=== PATIENT | female | born 1950 | race Caucasian/White ===

== ENCOUNTER 2025-01-12 10:34 | Inpatient (IN) ==
--- NOTE | 2025-01-12 11:06 | Emergency Department Note ---
Impression & Plan Neutropenia with fever, Sepsis, Infection due to human metapneumovirus (hMPV) ED Provider Note NAME: MAKEDA FATIMA AGE: 74 SEX: F : 1950 ARRIVES VIA: Walk-In INFORMANT: Patient ED PROVIDER(S): Moses Lazaro DO CHIEF COMPLAINT: Fever on chemo HPI: Patient is a 74-year-old female with a past medical history of hypertension, depression for a fever. She received chemo on Friday. She had a fever last night of 102. Son is present bedside and provides additional history and notes that she has had a worsening cough and congestion since Friday. Denies any headache or change in vision. No chest pain. No dysuria, urgency, or frequency. No new belly pain. Does have some nausea. ADDITIONAL HISTORY OBTAINED: Discussed with son who notes that patient had a port placed on Friday right chest. Chronic Medical/Social Conditions Affecting Care: Per HPI PAST MEDICAL HISTORY:See Below PAST SURGICAL HISTORY:See Below FAMILY HISTORY:See Below SOCIAL HISTORY:See Below HOME MEDICATIONS:See Below ALLERGIES:See Below VITALS:See Below PHYSICAL EXAMINATION: GENERAL: Sitting up in bed, alert, well appearing, well nourished, no distress, non-toxic EYE EXAM: normal conjunctiva. PERRL and EOM's grossly intact. OROPHARYNX: no exudate, no erythema, lips, buccal mucosa, and tongue normal and mucous membranes are moist NECK: supple, no nuchal rigidity, no adenopathy, non-tender CHEST: Port located on right chest. Clean and dry. LUNGS: Clear to auscultation. Normal chest wall mechanics HEART: no murmurs, S1 normal and S2 normal ABDOMEN: abdomen soft, non-tender, normo-active bowel sounds, no masses, no rebound or guarding. BACK: Back is symmetrical on inspection and there is no deformity, no midline tenderness, no CVA tenderness. SKIN: no rashes and no bruising UPPER EXTREMITIES: upper extremities are grossly normal. LOWER EXTREMITIES: No pitting edema. NEURO EXAM: Normal sensorium, cranial nerves II-XII grossly intact, normal speech, no gross weakness of arms, no gross weakness of legs. MEDICAL DECISION MAKING: Patient is a 74-year-old female referred in by their provider following being found to be febrile at home and noted to be neutropenic as she just received chemo this past Friday. Son is present at bedside and provides additional history that patient has had a cough and congestion which is worsened since Friday. IV was established and blood work was obtained. Labs show a leukopenia at 0.14 with a severe neutropenia less than 500 and a platelet count of 45. BMP with a hyponatremia at 128 and a hypokalemia at 3.3. Creatinine at 1.2. Low mag at 1.4. LFTs were unremarkable. Troponin was just barely positive. Pro-Maurilio elevated at 1.3. UA was contaminated but does not suggest infection with 0-5 whites. Viral panel was positive for human metapneumovirus. Patient was covered with broad-spectrum antibiotics which included 2 g of cefepime, IV fluids and IV vancomycin. Chest x-ray suggested possible pneumonia. This would fit clinically with her symptoms. Patient was updated bedside discussed with the hospitalist admitted for further workup of her neutropenic fever. Consults/Care Managements Discussions: Per [facility] Triage Nursing notes reviewed. Limited review of prior medical records performed Vital Signs: reviewed and remarkable for no significant abnormalities Differential diagnosis: Differential diagnosis includes etiologies such as sepsis, UTI, pneumonia, metabolic, electrolyte abnormalities, cardiac sources, intracerebral event, toxicologic, neurological, as well as others were entertained. ER treatment provided: See below Diagnostics interpreted by me include EKG and cardiac monitoring as listed below: -Cardiac Monitoring: An order was placed for continuous cardiac monitoring. The monitor shows a rate of 90 with sinus rhythm. -ECG: Sinus rhythm rate 75 Normal axis No PVCs QTc 410 -Laboratory studies:Interpreted by me as stated above in MDM and shown below. Imaging studies: Xrays: As interpreted by me:[Portable AP upright 1 view of the chest shows port located in right chest wall. CTs show: none Procedures:none Critical Care: I have personally spent 35 minutes of critical care time in the direct management of this patient. This includes bedside care, interpretation of diagnostic studies, and testing, discussion with consultants, patient, and family members, and other required patient management activities. This 35 minutes is in excess of all separately billable procedures. Past Med/Surg History Problem List (Updated 01/12/25 @ 14:05 by Moses Lazaro DO) Infection due to human metapneumovirus (hMPV) (Acute) Sepsis (Acute) Neutropenia with fever (Acute) Encounter for pre-operative examination Overactive bladder (Chronic) Cellulitis Encounter for pre-operative examination Encounter for pre-operative examination Breast cancer (Chronic) 1984 (Left Breast) HTN (hypertension) (Chronic) H/O total hysterectomy TAVO with BSO History of tonsillectomy and adenoidectomy H/O mastectomy "bilateral 07/03/[address] Briones with implants bilat" Neutropenia Medical History (Updated 01/12/25 @ 14:05 by Moses Lazaro DO) Nausea and vomiting after administration of anesthetic agent Osteoarthritis Bilateral lower extremity edema GERD (gastroesophageal reflux disease) Peripheral neuropathy r/t chemotherapy Migraine Hyperlipidemia Chronic obstructive pulmonary disease possible -- current testing Surgical History History of cataract surgery History of breast augmentation 2014 - implants removed d/t infection. Patient reports minimal implants. Hx of lumpectomy Left History of herniorrhaphy umbilical History of colonoscopy Family History Other Cancer Heart disease Hypertension Social History Smoking Status: Former smoker Tobacco Type: Cigarettes Cigarettes Per Day: 20 x 54 years; Second Hand Exposure: Yes; Do You Dip or Chew Tobacco: No; Hx Alcohol Use: Yes Alcohol type: beer Hx Substance Use: No Preferred Language: Albanian Communication Ability: Effective Geotechnician Required: No Beliefs That Will Affect Care: None Current Living Situation: Family Current Living Situation Comment: lives with son Feels Safe at Home: Yes Assistive Devices: Denture - Upper, Denture - Lower and Glasses Allergies Allergies Allergy/AdvReac Type Severity Reaction Status Date / Time lisinopril Allergy Severe ANAPHYLAXIS Verified 01/12/25 12:36 metoprolol Allergy Intermediate Anaphylaxis Verified 01/12/25 12:36 Home Meds Home Medications Medication Instructions Recorded Confirmed amlodipine 10 mg tablet 10 mg PO HS 07/09/19 01/12/25 atorvastatin 20 mg tablet 20 mg PO HS 07/09/19 01/12/25 cholecalciferol (vitamin D3) 25 1,000 unit PO HS 07/09/19 01/12/25 mcg (1,000 unit) capsule (Vitamin D3) aspirin 81 mg tablet 81 mg PO DAILY 01/12/25 01/12/25 hydrochlorothiazide 25 mg tablet 25 mg PO QAM 01/12/25 01/12/25 loratadine 10 mg tablet 10 mg PO DAILY 01/12/25 01/12/25 lorazepam 0.5 mg tablet 0.5 mg PO HS PRN Anxiety/Sleep 01/12/25 01/12/25 ondansetron HCl 8 mg tablet 8 mg PO Q8H PRN Nausea 01/12/25 01/12/25 prochlorperazine maleate 10 mg 10 mg PO Q6H PRN Nausea 01/12/25 01/12/25 tablet Results & Data (ED) Vital Signs Vital Signs - 24 hr 01/12/25 10:41 01/12/25 11:22 01/12/25 11:22 Temperature 37.1 C Temperature Source Oral Pulse Rate 91 H 76 Pulse Rate [Apical] Pulse Rhythm Regular Regular Pulse Rhythm [Apical] Pulse Strength Normal Pulse Strength [Apical] Respiratory Rate 20 16 Respiratory Effort / Characteristics Non-Labored Respiratory Depth Normal Respiratory Pattern Regular Blood Pressure 105/68 Blood Pressure [Right Arm] Blood Pressure Mean 80 Blood Pressure Mean [Right Arm] Blood Pressure Position Sitting Blood Pressure Position [Right Arm] Pulse Oximetry 91 88 L 91 Oxygen Delivery Method Room Air Room Air Nasal Cannula Oxygen Flow Rate 2 Sepsis Recent Fever Within 48 Hours Yes Sepsis New/Unexplained Change in Mental Status N/A Sepsis Action Taken by Nursing No Action Required 01/12/25 11:23 01/12/25 11:43 01/12/25 12:16 Temperature Temperature Source Pulse Rate 71 Pulse Rate [Apical] 80 64 Pulse Rhythm Pulse Rhythm [Apical] Regular Regular Pulse Strength Pulse Strength [Apical] Normal Normal Respiratory Rate 16 17 Respiratory Effort / Characteristics Non-Labored Spontaneous Non-Labored Spontaneous Respiratory Depth Normal Normal Respiratory Pattern Regular Regular Blood Pressure Blood Pressure [Right Arm] 88/58 L 119/60 Blood Pressure Mean Blood Pressure Mean [Right Arm] 68 79 Blood Pressure Position Blood Pressure Position [Right Arm] Lying Lying Pulse Oximetry 91 95 Oxygen Delivery Method Nasal Cannula Nasal Cannula Oxygen Flow Rate 2 2 Sepsis Recent Fever Within 48 Hours Sepsis New/Unexplained Change in Mental Status Sepsis Action Taken by Nursing 01/12/25 13:09 Temperature Temperature Source Pulse Rate Pulse Rate [Apical] 62 Pulse Rhythm Pulse Rhythm [Apical] Regular Pulse Strength Pulse Strength [Apical] Normal Respiratory Rate 19 Respiratory Effort / Characteristics Non-Labored Spontaneous Respiratory Depth Normal Respiratory Pattern Regular Blood Pressure Blood Pressure [Right Arm] 148/80 H Blood Pressure Mean Blood Pressure Mean [Right Arm] 102 Blood Pressure Position Blood Pressure Position [Right Arm] Lying Pulse Oximetry 94 Oxygen Delivery Method Nasal Cannula Oxygen Flow Rate 2 Sepsis Recent Fever Within 48 Hours Sepsis New/Unexplained Change in Mental Status Sepsis Action Taken by Nursing Laboratory Data 01/12/25 11:00 01/12/25 11:00 Lab Results 01/12/25 01/12/25 01/12/25 Range/Units 11:00 11:20 12:38 WBC 0.14 L* (4.8-10.8) K/ul RBC 3.88 L (4.20-5.40) M/uL Hgb 10.2 L (12.0-16.0) g/dl Hct 29.5 L (37.0-47.0) % MCV 76.0 L (80.0-100.0) fL MCH 26.3 (25.0-34.0) pg MCHC 34.6 (32.0-36.0) g/dL RDW Std Deviation 39.3 (36.4-46.3) fL RDW Coeff of All 14.2 (11.5-14.5) % Plt Count 45 L (130-400) K/uL MPV 10.1 (9.4-12.4) fL Neut # (Auto) < 0.50 L* (1.40-6.50) K/uL Platelet Estimate Decreased L (Normal) PT 12.6 H (9.0-12.0) Seconds INR 1.2 H (0.9-1.1) Sodium 128 L (136-145) mmol/L Potassium 3.3 L (3.5-5.1) mmol/L Chloride 93 L (98-107) mmol/L Carbon Dioxide 25 (21-32) mmol/L Anion Gap 10 (3-11) BUN 23 (6-23) mg/dl Creatinine 1.21 H (0.6-1.2) mg/dl Est Cr Clr Drug Dosing 41.8 ml/min eGFR 47.32 BUN/Creatinine Ratio 19.0 (10-20) Glucose 154 H (70-99(Fasting)) mg/dl Lactate 1.3 (0.4-2.0) mmol/L Calcium 8.9 (8.6-10.3) mg/dl Magnesium 1.4 L (1.7-2.4) mg/dl Total Bilirubin 1.2 H (0.2-1.0) mg/dl Direct Bilirubin 0.4 H (0-0.2) mg/dl AST 11 L (13-39) U/L ALT 7 (7-52) U/L Alkaline Phosphatase 75 (34-104) U/L Troponin I High Sens 14.8 H (0-14) pg/ml Total Protein 7.2 (6.0-8.3) gm/dl Albumin 3.7 (3.4-5.0) gm/dl Procalcitonin 1.38 H (0-0.5) ng/ml Urine Color Dark Yellow Urine Appearance Cloudy A (Clear) Urine pH 5.5 (4.5-7.5) Ur Specific [place] 1.027 (1.000-1.030) Urine Protein 2+ H (Negative) Urine Glucose (UA) Negative (Negative) Urine Ketones Trace H (Negative) Urine Blood 1+ H (Negative) Urine Nitrite Negative (Negative) Urine Bilirubin 1+ H (Negative) Urine Urobilinogen Negative (Negative) Ur Leukocyte Esterase Trace H (Negative) Urine WBC (Auto) 0-5 (0-5) /hpf Urine RBC (Auto) 3-5 H (0-2) /hpf U Hyaline Cast (Auto) 11-20 H (0-2) /lpf U Epithel Cells (Auto) 11-20 H (0-2) /hpf Urine Bacteria (Auto) None Seen (None Seen) Hyaline Casts Present A (None Presnt) /lpf Granular Casts Present A (None Prsent) /lpf Urine Mucus Present A (None Prsent) Adenovirus (PCR) Not Detected (NotDetected) B. pertussis DNA (PCR) Not Detected (NotDetected) B.parapertussis DNA PCR Not Detected (NotDetected) C. pneumoniae DNA (PCR) Not Detected (NotDetected) Coronavirus OC43 (PCR) Not Detected (NotDetected) Coronavirus HKU1 (PCR) Not Detected (NotDetected) Coronavirus 229E (PCR) Not Detected (NotDetected) SARS-CoV-2 (PCR) Not Detected (NotDetected) Coronavirus NL63 (PCR) Not Detected (NotDetected) Human Metapneumovir PCR DETECTED A (NotDetected) Influenza Type A (PCR) Not Detected (NotDetected) Influenza Type B (PCR) Not Detected (NotDetected) M. pneumoniae (PCR) Not Detected (NotDetected) Parainfluenza 1 (PCR) Not Detected (NotDetected) Parainfluenza 2 (PCR) Not Detected (NotDetected) Parainfluenza 3 (PCR) Not Detected (NotDetected) Parainfluenza 4 (PCR) Not Detected (NotDetected) RSV (PCR) Not Detected (NotDetected) Entero/Rhino (PCR) Not Detected (NotDetected) Administered Medications Vancomycin HCl 1,500 mg/ (Sodium Chloride) 530 mls @ 200 mls/hr IV NOW ONE Stop: 01/12/25 14:41 Last Admin: 01/12/25 12:33 Dose: 200 mls/hr Documented By: GEORGE Potassium Chloride (K Jamaal / Wtr) 10 meq in 100 mls @ 100 mls/hr IV Q1H ABA Stop: 01/12/25 16:59 Last Admin: 01/12/25 13:20 Dose: 100 mls/hr Documented By: GEORGE Magnesium Sulfate/Dextrose (Magnesium Sulfate / D5w) 1 gm in 100 mls @ 50 mls/hr IV Q2H [facility] Stop: 01/12/25 16:59 Last Admin: 01/12/25 13:18 Dose: 50 mls/hr Documented By: GEORGE Discontinued Medications Cefepime HCl (Maxipime 2000mg) 2,000 mg in 20 mls @ 5 mls/min IV NOW STA; Protocol Stop: 01/12/25 11:07 Last Admin: 01/12/25 11:42 Dose: 5 mls/min Documented By: LION Sodium Chloride (Nss) 1,000 mls @ 999 mls/hr IV .Q1H1M ONE Stop: 01/12/25 12:04 Last Infusion: 01/12/25 12:37 Dose: Infused Documented By: Admin: 01/12/25 11:32 Dose: 999 mls/hr Documented By: GEORGE Sodium Chloride (Nss) 1,000 mls @ 999 mls/hr IV .Q1H1M ONE Stop: 01/12/25 12:26 Last Admin: 04/16/25 11:56 Dose: Not Given Documented By: GEORGE Ondansetron HCl (Ondansetron Inj 2 Mg/Ml 2 Ml Vial) 4 mg IV NOW STA Stop: 01/12/25 12:58 Last Admin: 01/12/25 13:07 Dose: 4 mg Documented By: GEORGE Imaging Data Radiologist's Impression: Chest X-Ray 01/12/25 10:49 XR chest 1V portable CLINICAL HISTORY: Sepsis COMPARISON STUDY: 07/20/2024 FINDINGS: Right chest port tip is at the cavoatrial junction. There are a few nodular densities at the right midlung, increased. No other consolidation or pleural effusion. No pneumothorax. IMPRESSION: Increased nodular densities at the right mid lung. Differential diagnosis includes pneumonia and pulmonary nodule/malignancy. ACT 112: Positive. There are findings on this exam that require communication between the performing entity and the patient following Patient Test Result Information Act ([place] Act 112) guidelines. Electronically signed by: Juan Russell M.D. 01/12/2025 11:09 AM Discharge Plan Visit Data Chief Complaint: Abnormal Labs/Diagnostic Testing Stated Complaint: CANCER PATIENT, LOW WHITE BLOOD COUNT, VOMITING ED Provider: Moses Lazaro Discharge Problem: Neutropenia with fever, Sepsis, Infection due to human metapneumovirus (hMPV) Forms Stand Alone Forms: My [employer] Prescriptions Prescriptions: No Action atorvastatin 20 mg tablet 20 mg PO HS amlodipine 10 mg tablet 10 mg PO HS cholecalciferol (vitamin D3) [Vitamin D3] 1,000 unit Capsule 1,000 unit PO HS Rx Instructions: Unable to verify OTC meds at this date/time. ondansetron HCl 8 mg tablet 8 mg PO Q8H PRN (Reason: Nausea) prochlorperazine maleate 10 mg tablet 10 mg PO Q6H PRN (Reason: Nausea) lorazepam 0.5 mg tablet 0.5 mg PO HS PRN (Reason: Anxiety/Sleep) hydrochlorothiazide 25 mg tablet 25 mg PO QAM Rx Instructions: Last filled 09/27/25 x90 day supply loratadine 10 mg tablet 10 mg PO DAILY Rx Instructions: x 5 days after pegfilgastrim injection aspirin 81 mg Tablet 81 mg PO DAILY Referrals Referrals: Marge Leal MD [Primary Care Provider] - Discharge Problem: Sepsis Qualifiers: Sepsis type: sepsis due to unspecified organism Sepsis acute organ dysfunction status: unspecified Qualified Code(s): A41.9 - Sepsis, unspecified organism
--- NOTE | 2025-01-12 11:11 | XRay Report ---
XR chest 1V portable CLINICAL HISTORY: Sepsis COMPARISON STUDY: 07/20/2024 FINDINGS: Right chest port tip is at the cavoatrial junction. There are a few nodular densities at th e right midlung, increased. No other consolidation or pleural effusion. No pneumothorax. IMPRESSION: Increased nodular densities at the right mid lung. Differential diagnosis includes pneum onia and pulmonary nodule/malignancy. ACT 112: Positive. There are findings on this exam that require communication between the performing entity and the patient following Patient Test Result Information Act ([place] Act 112) guidelines. Electronically signed by: Juan Russell M.D. 01/12/2025 11:09 AM
[2025-01-12 11:28] LABS: INR 1.2 (0.9-1.1); Prothrombin Time 12.6 Seconds (9.0-12.0)
[2025-01-12] MEDS: SODIUM CHLORIDE 0.9% 1,000 ML IV ONE ×2 (11:32→11:56)
[2025-01-12 11:41] LABS: Albumin Level 3.7 gm/dl (3.4-5.0); Bilirubin Direct 0.4 mg/dl (0-0.2); Bilirubin,Total 1.2 mg/dl (0.2-1.0); Calcium 8.9 mg/dl (8.6-10.3); Magnesium 1.4 mg/dl (1.7-2.4); Potassium 3.3 mmol/L (3.5-5.1)
[2025-01-12] MEDS: CEFEPIME 2000MG 2,000 MG/20 ML SYR IV STA (11:42)
[2025-01-12 11:45] LABS: Troponin I High Sensitivity 14.8 pg/ml (0-14)
[2025-01-12 11:47] LABS: Creatinine Clr Calc Pharmacy 41.8 ml/min; Total Protein 7.2 gm/dl (6.0-8.3)
[2025-01-12 11:54] LABS: Hematocrit (blood only) 29.5 % (37.0-47.0); Hemoglobin 10.2 g/dl (12.0-16.0); Mean Corpuscular Hemoglobin 26.3 pg (25.0-34.0); Mean Corpuscular Hgb Conc 34.6 g/dL (32.0-36.0); Mean Platelet Volume 10.1 fL (9.4-12.4); Platelet Count 45 K/uL (130-400); RDW Coefficient of Variation 14.2 % (11.5-14.5); RDW Standard Deviation 39.3 fL (36.4-46.3); Red Blood Count 3.88 M/uL (4.20-5.40); White Blood Count 0.14 K/ul (4.8-10.8)
[2025-01-12 11:55] LABS: Platelet Estimate Decreased (Normal)
[2025-01-12] MEDS ORDERED: VANCOMYCIN CONSULT ACTIVE PRN (12:03)
[2025-01-12] MEDS: VANCOMYCIN HCL 1,500 MG in SODIUM CHLORIDE 0.9% 500 ML IV ONE (12:33)
[2025-01-12 12:36] LABS: Adenovirus PCR Not Detected (NotDetected); Bordetella parapertussis PCR Not Detected (NotDetected); Bordetella pertussis PCR Not Detected (NotDetected); Chlamydia pneumoniae PCR Not Detected (NotDetected); Coronavirus 229E PCR Not Detected (NotDetected); Coronavirus CoV-2 (COVID19)PCR Not Detected (NotDetected); Coronavirus HKU1 PCR Not Detected (NotDetected); Coronavirus NL63 PCR Not Detected (NotDetected); Coronavirus OC43PCR Not Detected (NotDetected); Human Metapneumovirus PCR DETECTED (NotDetected); Influenza A PCR Not Detected (NotDetected); Influenza B PCR Not Detected (NotDetected); Mycoplasma pneumoniae PCR Not Detected (NotDetected); Parainfluenza Virus 1 PCR Not Detected (NotDetected); Parainfluenza Virus 2 PCR Not Detected (NotDetected); Parainfluenza Virus 3 PCR Not Detected (NotDetected); Parainfluenza Virus 4 PCR Not Detected (NotDetected); Respiratory Syncytial VirusPCR Not Detected (NotDetected); Rhinovirus/Enterovirus PCR Not Detected (NotDetected)
[2025-01-12 12:51] LABS: Neutrophils # (auto) < 0.50 K/uL (1.40-6.50)
[2025-01-12 13:07] LABS: Appearance Urine Cloudy (Clear); Bacteria Urine Automated None Seen (None Seen); Bilirubin Urine 1+ (Negative); Blood Urine 1+ (Negative); Color Urine Dark Yellow; Glucose Urine UA Negative (Negative); Granular Casts Urine Present /lpf (None Prsent); Hyaline Casts Urine Present /lpf (None Presnt); Ketones Urine Trace (Negative); Leukocyte Esterase Urine Trace (Negative); Mucus Urine Present (None Prsent); Nitrite Urine Negative (Negative); Protein Urine 2+ (Negative); Specific Gravity Urine 1.027 (1.000-1.030); Urobilinogen Urine Negative (Negative); WBC Urine Automated 0-5 /hpf (0-5); pH Urine 5.5 (4.5-7.5)
[2025-01-12] MEDS: ONDANSETRON INJ 2 MG/ML 2 ML VIAL IV STA (13:07)
[2025-01-12] MEDS: MAGNESIUM SULFATE / D5W 1 GM/100 ML BAG IV SCH (13:18)
[2025-01-12] MEDS: POTASSIUM CHLORIDE / WTR 10 MEQ/100 ML PLCT IV SCH (13:20)
--- NOTE | 2025-01-12 14:20 | History & Physical Report ---
Date of Service January 12, 2025 Assessment & Plan (1) Neutropenic fever: (2) Pneumonia: (3) Pancytopenia: (4) Hypoxia: (5) Infection due to human metapneumovirus (hMPV): (6) Large cell neuroendocrine carcinoma: Plan: Patient presenting by referral of outpatient oncologist office for evaluation of neutropenic fever. 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 Patient received her first doses of chemo (etoposide plus carboplatin combination) on 01/03, 01/04, and 01/05. Patient received pegfilgrastim on 01/06. Since receiving chemo, patient reports generalized weakness, poor appetite, nausea, vomiting. Over the past couple of days, she developed a worsening cough and fever of 102 this a.m. In the ED, patient was hypoxic on room air at 88%, currently requiring 2 L of oxygen via nasal cannula. She is afebrile and hemodynamically stable. Labs showed WBC 0.14K, Hgb 10.2, platelets 45K, Na+ 128, K+ 3.3, creatinine 1.2, Mg +1.4, lactate 1.3. RVP positive for human metapneumovirus. CXR is suggestive of a right midlung pneumonia. Patient was given IV cefepime, IV Vanco, IVF. Continue Vanco and cefepime, will add doxycycline for atypical coverage CT chest Pulmonary toilet with nebs, Mucinex, incentive spirometer, flutter valve Blood and sputum cultures Follow CBC Patient follows with Dr. 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 Terrell. I spent a total of 75 minutes coordinating, documenting, and providing care for this patient excluding time spent in the performance of separately billed services. This included personally reviewing all current laboratories and imaging studies, medication reconciliation, outpatient chart review, and discussion with specialists. 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 Patient received her first doses of chemo on 01/03, 01/04, and 01/05. Patient received pegfilgrastim on 01/06. She reports that since receiving chemo she has been feeling generally weak, nauseous, poor appetite, and vomiting. Denies abdominal pain or diarrhea. No hematemesis or coffee-ground emesis. Patient reports a chronic cough due to her smoking history however cough has been worsening over the past couple of days. Patient started to develop a low-grade fever over the past couple of days as well and this morning fever was 102. Cough has been productive and patient reports she feels short of breath with minimal exertion. No chest pain or palpitations. She denies lightheadedness, dizziness, diaphoresis, syncopal events. No urinary symptoms. Patient was seen at her oncologist office today and was referred to the ED for further evaluation. In the ED, patient was hypoxic on room air at 88%, currently requiring 2 L of oxygen via nasal cannula. She is afebrile and hemodynamically stable. Labs showed WBC 0.14K, Hgb 10.2, platelets 45K, Na+ 128, K+ 3.3, creatinine 1.2, Mg +1.4. RVP positive for human metapneumovirus. CXR is suggestive of a right midlung pneumonia. Patient was given IV cefepime, IV Vanco, IVF. Allergies Allergy/AdvReac Type Severity Reaction Status Date / Time lisinopril Allergy Severe ANAPHYLAXIS Verified 01/12/25 12:36 metoprolol Allergy Intermediate Anaphylaxis Verified 01/12/25 12:36 Home Medications Medication Instructions Recorded Confirmed Type amlodipine 10 mg tablet 10 mg PO HS 07/09/19 01/12/25 History atorvastatin 20 mg tablet 20 mg PO HS 07/09/19 01/12/25 History cholecalciferol (vitamin D3) 25 1,000 unit PO HS 07/09/19 01/12/25 History mcg (1,000 unit) capsule (Vitamin D3) aspirin 81 mg tablet 81 mg PO DAILY 01/12/25 01/12/25 History hydrochlorothiazide 25 mg tablet 25 mg PO QAM 01/12/25 01/12/25 History loratadine 10 mg tablet 10 mg PO DAILY 01/12/25 01/12/25 History lorazepam 0.5 mg tablet 0.5 mg PO HS PRN Anxiety/Sleep 01/12/25 01/12/25 History ondansetron HCl 8 mg tablet 8 mg PO Q8H PRN Nausea 01/12/25 01/12/25 History prochlorperazine maleate 10 mg 10 mg PO Q6H PRN Nausea 01/12/25 01/12/25 History tablet Past Med/Surg History Problem List (Updated 01/12/25 @ 14:13 by MONO Jimenez) Infection due to human metapneumovirus (hMPV) (Acute) Sepsis (Acute) Neutropenia with fever (Acute) Hypomagnesemia Hypokalemia Hyponatremia Hypoxia Pneumonia Pancytopenia Neutropenic fever HTN (hypertension) (Chronic) H/O total hysterectomy TAVO with BSO History of tonsillectomy and adenoidectomy H/O mastectomy "bilateral 07/03/[address] 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 She was first diagnosed in 1984 where she had a partial mastectomy and radiation therapy. She had a mammogram in 2014 showing a possible recurrence. She then had bilateral mastectomies with reconstruction. Pathology showing invasive carcinoma grade 3, ER/HI negative and HER2 Alexander positive. She was treated with the 1st cycles of TCH and 1 year of Herceptin which she completed on 07/23/2016. Nausea and vomiting after administration of anesthetic agent Osteoarthritis GERD (gastroesophageal reflux disease) Peripheral neuropathy r/t chemotherapy Migraine Hyperlipidemia Chronic obstructive pulmonary disease possible -- current testing Surgical History (Updated 01/12/25 @ 14:13 by MONO Jimenez) History of lobectomy of lung SAURAV for neuroendocrine tumor History of cataract surgery History of breast augmentation 2014 - implants removed d/t infection. Patient reports minimal implants. Hx of lumpectomy Left History of herniorrhaphy umbilical History of colonoscopy Family History Other Cancer Heart disease Hypertension Social History Smoking Status: Former smoker Tobacco Type: Cigarettes Cigarettes Per Day: 20 x 54 years; Second Hand Exposure: Yes; Do You Dip or Chew Tobacco: No; Hx Alcohol Use: No Hx Substance Use: No Preferred Language: Pakistani Communication Ability: Effective [employer] Professional Required: No Beliefs That Will Affect Care: None Current Living Situation: Family Current Living Situation Comment: lives with son Feels Safe at Home: Yes Assistive Devices: Denture - Upper, Denture - Lower and Glasses Review of Systems Review of Systems: ROS per HPI, all other systems reviewed and negative Physical Exam Constitutional: well developed, well nourished and + ill appearing; no acute distress Eyes: PERRL, conjunctivae normal, anicteric sclerae ENMT: external ear and nose normal, oropharynx normal Respiratory: normal respiratory effort; no respiratory distress Auscultation: + diminished lung sounds Dyspneic with minimal exertion Cardiovascular: Rate/Rhythm: regular rate and regular rhythm Vessels: normal peripheral pulses Extremities: no edema Gastrointestinal (Abdomen): normal bowel sounds, soft, nontender, no hepatosplenomegaly Musculoskeletal: no cyanosis or clubbing, extremities motor strength 5/5 Skin: no rashes, warm and dry Neurologic: PERRL, EOMI, accommodation nl, no face palsy, no dysarthria Psychiatric: A+Ox3, euthymic affect Results & Data Results & Data Vital Signs (Past 12 Hours) Vital Signs Temp Pulse Pulse Resp BP BP Pulse Ox 01/12/25 13:09 62 19 148/80 H 94 01/12/25 12:16 64 17 119/60 95 01/12/25 11:43 71 01/12/25 11:23 80 16 88/58 L 91 01/12/25 11:22 91 01/12/25 11:22 76 16 88 L 01/12/25 10:41 37.1 C 91 H 20 105/68 91 O2 Del Method O2 Flow Rate 01/12/25 13:09 Nasal Cannula 2 01/12/25 12:16 Nasal Cannula 2 01/12/25 11:43 01/12/25 11:23 Nasal Cannula 2 01/12/25 11:22 Nasal Cannula 2 01/12/25 11:22 Room Air 01/12/25 10:41 Room Air Laboratory Results Short CBC 01/12/25 Range/Units 11:00 WBC 0.14 L* (4.8-10.8) K/ul Hgb 10.2 L (12.0-16.0) g/dl Hct 29.5 L (37.0-47.0) % Plt Count 45 L (130-400) K/uL BMP 01/12/25 11:00 Sodium 128 L Potassium 3.3 L Chloride 93 L Carbon Dioxide 25 BUN 23 Creatinine 1.21 H Glucose 154 H Calcium 8.9 Liver Function 01/12/25 Range/Units 11:00 Total Bilirubin 1.2 H (0.2-1.0) mg/dl Direct Bilirubin 0.4 H (0-0.2) mg/dl AST 11 L (13-39) U/L ALT 7 (7-52) U/L Alkaline Phosphatase 75 (34-104) U/L Albumin 3.7 (3.4-5.0) gm/dl Urine 01/12/25 Range/Units 12:38 Urine Color Dark Yellow Urine Appearance Cloudy A (Clear) Urine pH 5.5 (4.5-7.5) Ur Specific Chamberlain 1.027 (1.000-1.030) Urine Protein 2+ H (Negative) Urine Glucose (UA) Negative (Negative) Diagnostic Findings Chest X-Ray 01/12/25 10:49 XR chest 1V portable CLINICAL HISTORY: Sepsis COMPARISON STUDY: 07/20/2024 FINDINGS: Right chest port tip is at the cavoatrial junction. There are a few nodular densities at the right midlung, increased. No other consolidation or pleural effusion. No pneumothorax. IMPRESSION: Increased nodular densities at the right mid lung. Differential diagnosis includes pneumonia and pulmonary nodule/malignancy. ACT 112: Positive. There are findings on this exam that require communication between the performing entity and the patient following Patient Test Result Information Act ([place] Act 112) guidelines. Electronically signed by: Juan Russell M.D. 01/12/2025 11:09 AM Code Status & VTE Plan VTE Prophylaxis Plan VTE Prophylaxis will be ordered: Yes Supervising Physician Co-Signing Physician Notes Patient seen and examined independently. Discussed with above provider. Patient was seen in the oncology office and was sent to the ED for evaluation of febrile neutropenia. She was found to have fever of 102F in the office. Respiratory viral panel positive for human metapneumovirus; her son recently recovered from the same. She also recently had Port-A-Cath placed; dressing is still in place. She had received pegfilgrastim on 01/06. Chest x-ray showed increased nodular densities in right midlung. Pro-Maurilio is elevated. Plan to treat with empiric cefepime and vancomycin along with doxycycline. Follow-up on blood culture result. Plan to obtain CT chest without contrast to better evaluate the chest x-ray findings. I have reviewed the advanced practitioner's documentation, and I agree with, and take responsibility for the plan of care I spent a total of 30 minutes coordinating, documenting, and providing care for this patient excluding time spent in the performance of separately billed services. All of the aforementioned completed while collaborating with the assigned advanced practitioner for a full treatment plan
[2025-01-12] MEDS ORDERED: CEFEPIME 2000MG 2,000 MG/20 ML SYR IV SCH (14:32)
--- NOTE | 2025-01-12 14:56 | Pharmacy Report ---
Pharmacy PK ABX Note - Date of Service January 12, 2025 - Assessment and Plan Assessment 74 year old F receiving vancomycin, doxycycline, and cefepime for treatment of CAP. Patient with remote history of breast cancer s/p bilateral mastectomies, radiation, and chemo. 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 She now presents with low-grade fever, worsening cough, weakness, nausea, and vomiting. * Pertinent microbiologic data includes: + for hMPV * Blood cultures x 2 and urine cultures all from 01/12 are pending * CXR suggestive of right midlung PNA. Day # 1 of antimicrobial therapy. Plan Vancomycin * Loading dose: 1500 mg IV x 1 * Maintenance dose: 1250 mg IV every 24 hours * Regimen is predicted to achieve target AUC/LAXMI of 400-600 mg/L.hr * Random level will be ordered in the next 72 hours if continued. Pharmacy will continue to follow and will adjust dose/frequency as necessary. Thank you. Pharmacy has transitioned to AUC monitoring for vancomycin. AUC/LAXMI is the preferred PK/PD target and is associated with decreased risk of nephrotoxicity compared to traditional trough targets.
--- NOTE | 2025-01-12 15:42 | CT Scan Report ---
CT chest diagnostic wo con CT DOSE: 328.35 mGy.cm CLINICAL HISTORY: neutropenic fever, pneumonia. TECHNIQUE: Multiaxial CT images of the chest were performed without contrast. Sagittal and coronal r econstructions were done. A dose lowering technique was utilized adhering to the principles of ALARA. COMPARISON STUDY: Portable radiograph dated 01/12/2025 FINDINGS: There are patchy airspace opacities in the right upper lobe and the right lower lobe. In ad dition, there is partial atelectasis and scarring in the medial segment of the right middle lobe and there is scarring in the anterior aspect of the left upper lobe. There is a sharply marginated 7 mm solid nodule identified in the right lower lobe on axial image 38 of series 3. There is no pleural effusion. There is no pneumothorax. There are prominent precarinal, subcarinal, a nd right hilar lymph nodes that are likely to be reactive. There is a 2.6 cm fluid attenuating mass l deana just anterior to the esophagus in the middle mediastinum on axial image 119 of series 4 The upper airway is unremarkable. There is no aortic aneurysm. The upper abdominal images demonstrate a small hiatal hernia IMPRESSION: Patchy airspace opacities in the right upper lobe and right lower lobe consistent with in fectious or inflammatory infiltrates. Right hilar and mediastinal adenopathy likely to be reactive bu t recommend follow-up. 7 mm solid nodule in the right lower lobe having different characteristics than the inflammatory infi ltrates. Recommend follow-up. 2.5 cm middle mediastinal mass just anterior to the esophagus with low attenuation most likely an ent herber cyst or benign esophageal wall lesion. I would advise repeat CT follow-up in the near future with contrast enhancement to better evaluate th e adenopathy, the characteristics of the right lower lobe nodule, and the characteristics of the medi astinal mass. Following that, would recommend a follow-up chest CT in 3-6 months to reevaluate the ri ght lung nodule and to reassess the adenopathy and the mediastinal mass. ACT 112: Negative or not required by law. Electronically signed by: Sharmin Wilson M.D. 01/12/2025 3:40 PM
[2025-01-12] MEDS: DOXYCYCLINE HYCLATE 100 MG in DEXTROSE 5% MINI-B 100 ML IV SCH (16:20)
[2025-01-12 17:37] LABS: BUN Creatinine Ratio 21.7 (10-20); Blood Urea Nitrogen 23 mg/dl (6-23); Calcium 8.2 mg/dl (8.6-10.3); Carbon Dioxide 28 mmol/L (21-32); Chloride 96 mmol/L (98-107); Creatinine Clr Calc Pharmacy 47.7 ml/min; Glucose 114 mg/dl (70-99(Fasting))
--- OUTSIDE RECORDS SUMMARY | 2025-01-12 17:57 | External Medical Summary | Summary of Care ---
Author Name Unknown Organization [facility] Address [address] [facility] [place] [address] Phone [phone] Care Team Providers Care Rink Rat Name Role Phone Marge Leal MD Primary Care Provide r Reason for Visit * Reason Onset Date Comments Follow Up 01/07/2025 Carbo/Etop Encounter Details Date Type Department Care Team (Late st Contact Info) Description 01/07/2025 Telephone Hematology/Oncology [facility] [place] [address] [facility] [place] [phone] Logan Mancia MD [address] [place] [address] Follow Up (Carbo/Etop) Allergies Active Allergy Reactions Criticality Noted Date Comments Varenicline Neuro complications (Please comment) Low 08/23/2019 Vivid nightmares Lisinopril Edema face/lips/tongue High 03/29/2014 Metoprolol Tartrate Edema face/lips/tongue,Other (Please comment) High 05/07/2019 Facial swelling, airway closing up documented as of this encounter (statuses as of 01/11/2025) Medications aspirin 81 MG chewable tabletIndicatio ns:Asymptomatic stenosis of left carotid artery Take 1 Tablet by mouth in the morning. with food.. 100 Tab 5 9 Active Vitamin D3 10 MCG (400 UNIT) Oral Tablet (Cholecalcifero l) Take 1 Tablet by mouth in the morning. Active hydroCHLOROthia zide 25 MG Oral Tablet (Hydrodiuril)In dications:HTN, goal below 140/90 TAKE 1 TABLET BY MOUTH EVERY DAY IN THE MORNING 90 Tablet 1 4 Active Atorvastatin Calcium 20 MG Oral Tablet (Lipitor)Indica tions:Asymptoma tic stenosis of left carotid artery TAKE 1 TABLET BY MOUTH EVERY DAY IN THE MORNING 90 Tablet 1 4 Active DULoxetine HCl 20 MG Oral Capsule Delayed Release Particles (Cymbalta)Indic ations:Anxiety TAKE 1 CAPSULE BY MOUTH IN THE MORNING. DO NOT CUT, CRUSH OR CHEW. 90 Capsule 1 4 Active Additional Information Patient taking differently:20 mg OralHS, Do not cut, crush or chew, Reported on 12/06/2024 Acetaminophen 500 MG Oral Tablet (Tylenol Extra Strength) Take 2 Tablets by mouth every 6 hours as needed. Active Tylenol PM Extra Strength 500-25 MG Oral Tablet (diphenhydrAMIN E-APAP (sleep)) Take 2 Tablets by mouth at bedtime as needed for Sleep. Active oxyCODONE HCl 5 MG Oral Tablet (Oxy IR) Take 1 Tablet by mouth every 6 hours as needed for Pain, Severe or Pain, Moderate (ongoing therapy). 10 Tablet 5 Active amLODIPine Besylate 10 MG Oral Tablet (Norvasc)Indica tions:HTN, goal below 140/90 TAKE 1 TABLET BY MOUTH EVERY DAY IN THE MORNING 90 Tablet 1 5 Active Additional Information Patient taking differently: HS, Reported on 01/06/2025 Ondansetron HCl 8 MG Oral Tablet (Zofran)Indicat ions:Malignant neoplasm of lung, unspecified laterality, unspecified part of lung (HCC) Take 1 Tablet by mouth every 8 hours as needed for Nausea. 30 Tablet 1 5 Active Prochlorperazin e Maleate 10 MG Oral Tablet (Compazine)Mariella cations:Maligna nt neoplasm of lung, unspecified laterality, unspecified part of lung (HCC) Take 1 Tablet by mouth every 6 hours as needed for Nausea. 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 30 Tablet 5 Active documented as of this encounter (statuses as of 01/11/2025) Active Problems Problem Noted Date Diagnosed Date Dehydration 01/05/2025 Chemotherapy induced nausea and vomiting 025 Prevention of chemotherapy-induced neutropenia 0 01/03/2025 Iron deficiency anemia 05/19/2020 Oxygen desaturation during sleep 02/17/2020 COPD, mild 01/25/2020 Decreased diffusion capacity of lung 01/25/2020 Mild tricuspid regurgitation 04/15/2019 Overview (04/15/2019): Echo 02/2019 Primary malignant neoplasm of left upper lobe of lung 03/15/2019 Cancer Staging:Clinical stage from 11/17/2024:Stage IA2(cT1b, cN0, cM0) - Signed by Lee Gomez MD on 11/17/2024 Pathologic stage from 11/24/2024:Stage IB(pT2a, pN0, cM0) - Signed by Lee Gomez MD on 11/24/2024 Overview (03/15/2019): 6 x 7 mm nodule 03/15/19. Repeat in 6 months. 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 Anxiety 07/27/2018 Osteoporosis 10/25/2016 Encounter for antineoplastic chemotherapy 2014 History of breast cancer 07/26/2015 HTN, goal below 140/90 01/10/2012 Tobacco use disorder 03/14/2006 Chronic rhinitis 03/14/2006 documented as of this encounter (statuses as of 01/11/2025) Resolved Problems Problem Noted Date Diagnosed Date Resolved Date Chronic obstructive pulmonary disease 09/20/2019 09/20/2019 Kidney disease, chronic, sta ge III (GFR 30-59 ml/min) 03/22/2016 08/14/2018 Breast cancer, female 08/04/20152017 Malignant neoplasm of upper- inner quadrant of left female breast 08/03/2015 07/27/2018 Angioedema 03/29/2014 07/27/2018 Kidney disease, chronic, sta ge III (GFR 30-59 ml/min) 11/22/2013 05/06/2014 Overview: Per CKD protocol #1 Polyuria 01/10/2012 10/30/2015 Vitamin D deficiency 12/20/2009 016 OSTEOPENIA 12/08/2009 07/27/2018 FAM HX-DIABETES MELLITUS 01/23/2009 Family history of ischemic heart disease 01/23/2009 07/27/2018 ADVANCE DIRECTIVE INFORMATION 08/11/2006 08/02/2024 Overview (05/22/2016): Offered info. Pt. Declined. documented as of this encounter (statuses as of 01/11/2025) Immunizations Name Administration Dates Next Due Pneumococcal Conjugate Vacc, 13 Valent (Prevnar) 09/24/2016 Pneumococcal Polysaccharide PPV23 (Pneumovax) 07/27/2018,01/23/2009 Season Influenza, Quad, PF, Adjuvanted, 65+ Yrs, IM (FLUAD) 08/15/2020 Seasonal Influenza Vac., MDV , IM, 0.5 mL (Fluzone) 07/05/2015,07/26/2014,08/04/2013,07/15,06/22/2010 Seasonal Influenza, PF, 6 M & above, IM , (FluLaval or Fluzone) 07/27/2018,11/14/2017 Seasonal Influenza, Quadriva lent, No Preserve, IM 07/24/2016 Seasonal Influenza, Trivalen t, Adjuvanted, 65+ YRS, PF, (Fluad) 07/07/2019 TDAP (age 10 and older)(Boostrix) 09/20/2019 TDAP, Age 7 and older, IM (Adacel) 01/23/2009 Varicella Zoster Vaccine Osorio lt (Zostavax) 07/15/2012 Zoster Vaccine Recombinant (Shingrix) 09/20/2019 documented as of this encounter Social History Tobacco Use Types Packs/Day Years Used Date Smoking Tobacco: Every Day Cigarettes 1.5 61.3 Started: 1962 Passive Smoke Exposure: Current Smokeless Tobacco: Never Alcohol Use Standard Drinks/Week Comments Yes 0 (1 standard drink = 0.6 oz pur e alcohol) occ. PHQ-2 Answer Date Recorded PHQ-2 Score 0 09/20/2019 Hunger Vital Sign Answer Date Recorded Within the past 12 months, y ou worried that your food would run out before you got the money to buy more. Never true 07/13/20 24 Within the past 12 months, t he food you bought just didn't last and you didn't have money to get more. Never true 07/13/2024 Childcare Answer Date Recorded Do you feel overwhelmed with taking care of a child, family member or friend? No 07/13/2024 Does your family need help f inding childcare? (Household - for ages 0-17 years) Not on file 07/13/2024 Clothing Answer Date Recorded Have you been unable to get clothing when it was really needed? No 07/13/2024 Is your family able to get c lothes or diapers when needed? (Household - for ages 0-17 years) Not on file 07/13/2024 Personal Safety Answer Date Recorded Do you feel unsafe or have concerns for your saf ety? No 07/13/2024 Do you have concerns for you r family's safety? (Household - for ages 0-17 years) Not on file 07/13/2024 Utilities Answer Date Recorded Do you have trouble paying y our heating, water, or electric bill? No 07/13/2024 Is your family able to pay t he heat, water, or electric bill? (Household - for ages 0-17 years) Not on file 07/13/2024 Does your family have access to good internet? (Household - for ages 0-17 years) Not on file 07/13/2024 Employment Status Answer Date Recorded Are you unemployed or without regular income? No 07/13/2024 Does the household have a re gular source of income? (Household - for ages 0-17 years) Not on file 07/13/2024 Social Connections Answer Date Recorded How often do you feel lonely or isolated from th ose around you? Rarely 07/13/2024 Financial Resource Strain Answer Date R ecorded Do you have any trouble payi ng for your medications, or do you think you might in the future? No 07/13/2024 Does your family have troubl e paying for medicine? (Household - for ages 0-17 years) Not on file 07/13/2024 Transportation Needs Answer Date Record ed Do you have trouble getting a ride to medical visits or work? (Adult - for ages 18 years and over) Not on file 07/13/2024 Does your family have a hard time getting a ride to doctors visits? (Household - for ages 0-17 years) Not on file 07/13/2024 Has lack of transportation k ept you from medical appointments, meetings, work, or from getting things needed for daily living? Check all that apply. No 07/13/2024 Do you (or your family) have trouble finding or paying for a ride (transportation)? (Household - for ages 0-17 years) Not on file 07/13/2024 Housing Stability Answer Date Recorded Do you currently live in a s helter or have no steady place to sleep at night? No 07/13/2024 Do you think you are at risk of becoming homeless? (Adult - for ages 18 years and over) Not on file 07/13/2024 Does your family worry about paying for your home or becoming homeless? (Household - for ages 0-17 years) Not on file 1 Are you homeless or worried that you might be in the future? No 07/13/2024 Are you (or your family) pallavi eless or worried that you might be in the future? (Household - for ages 0-17 years) Not on file Food Insecurity Answer Date Recorded Do you need food for this week? No 07/13/2024 Are you able to get enough f ood for your family? (Household - for ages 0-17 years) Not on file 07/13/2024 Does your family need food t his week? (Household - for ages 0-17 years) Not on file 07/13/2024 Do you always have enough fo od for your family? (Household - for ages 0-17 years) Not on file 07/13/2024 Food Insecurity Answer Date Recorded Within the past 12 months, y ou worried that your food would run out before you got the money to buy more. Never true 07/13/20 24 Within the past 12 months, t he food you bought just didn't last and you didn't have money to get more. Never true 07/13/2024 Do you need food for this week? No 07/13/2024 Comments No Sex and Gender Information Value Date Recorded Sex Assigned at Female 12/23/2023 11:41 AM EDT Legal Sex Female 5:34 AM EST Gender Identity Female 12/23/2023 11:41 AM EDT Sexual Orientation Straight 12/23/2023 11 :41 AM EDT documented as of this encounter Functional Status * Are you deaf or do you have serious difficulty hearing? Answer Date of Assessment Author No 11/17/2024 7:33 PM Brooklyn Mendez RN * Are you blind or do you have serious difficulty seeing, even when wearing glasses? Answer Date of Assessment Author No 11/17/2024 7:33 PM Brooklyn Mendez RN * Do you have serious difficulty walking or climbing stairs? (5 years old or older) Answer Date of Assessment Author No 11/17/2024 7:33 PM Brooklyn Mendez RN * Do you have difficulty dressing or bathing? (5 years old or older) Answer Date of Assessment Author No 11/17/2024 7:33 PM Brooklyn Mendez RN * Because of a physical, mental, or emotional condition, do you have difficulty doing errands alone such as visiting a doctor’s office or shopping? (15 years old or older) Answer Date of Assessment Author No 11/17/2024 7:33 PM Brooklyn Mendez RN documented as of this encounter Mental Status * Because of a physical, mental, or emotional condition, do you have serious difficulty concentrating, remembering, or making decisions? (5 years old or older) Answer Entry Date Author No 11/17/2024 7:33 PM Brooklyn Mendez RN documented in this encounter Miscellaneous Notes * Addendum Note - Joaquim Troy RN - 01/11/2025 12:02 PM EDTAddended by: JOAQUIM TROY on: 01/11/2025 12:02 PM Modules accepted: Orders * Telephone Encounter - Joaquim Troy RN - 01/11/2025 11:52 AM EDT Attempted to call patient- voicemail full. Called patients son. He states that patient has not been out of bed except to go to the bathroom and to go to appts since last Friday. Occasionally will sit in the living room with them for a bit, but not for long. He states that she is not nauseous, but has been dry heaving. Has been taking antiemetics, which helps for a little bit. She is drinking fluids, but not as much as he thinks she should be. She is weak, has a little dizziness but states that it isnt bad. Offered for patient to come in this afternoon for labs/ possible hydration. He states that tomorrowwould work better for them. Offered appts for labs/ Dr Mancia/ hydration tomorrow, he accepted. Advised him to bring patient to ED if symptoms worsen overnight. He verbalized understanding. Dr Mancia: JOSE RAFAEL * Telephone Encounter - Joaquim Troy RN - 01/10/2025 11:58 AM EDT Attempted to call patients son- voicemail sounded like business, did not leave voicemail. * Telephone Encounter - Joaquim Troy RN - 01/10/2025 9:23 AM EDT Attempted to call patient again- left message that I would also send MyG, asked that she either return call or reply to MyG. * Telephone Encounter - Ashok Larsen RN - 01/07/2025 2:54 PM EDT HEMATOLOGY/ONCOLOGY INITIAL CHEMO FOLLOW-UP Called patient to follow up with her s/p 1st cycle of Carbo/Etop. Pt also had port placed yesterdayin [place]. No answer, unable to leave VM on machine as box was full. documented in this encounter Plan of Treatment Upcoming Encounters Date Type Department Care Team (Late st Contact Info) Description 01/12/2025 8:50 AM EDT Laboratory Laboratory [facility] [place] [address] [place] [phone] [facility] [place] [address] [place] [address] [id number] 01/12/2025 9:30 AM EDT Office Visit Hematology/Oncology [facility] [place] [address] [place] [address] [phone] Logan Mancia MD [address] [place], [place] [address] 01/12/2025 10:00 AM EDT Hem/Onc Treatment Hematology/Oncology Treatment, [place] [address] [place] [phone] Deisrae, Chair 7 Hem Onc [facility] [address] [place] [address] 01/24/2025 8:50 AM EDT Laboratory Laboratory [facility] [place] [address] [phone] [facility] [place] [address] [address] 01/24/2025 9:30 AM EDT Office Visit Hematology/Oncology [facility] [place] [address] [phone] Logan Mancia MD [address] [employer], [place] [address] 01/24/2025 10:00 AM EDT Hem/Onc Treatment Hematology/Oncology Treatment, [address], [place] [phone] Desirae, Chair 11 Hem Onc [place] [address] [facility] [place] [address] 01/25/2025 9:15 AM EDT Hem/Onc Treatment Hematology/Oncology Treatment, [address], [place] [phone] Desirae, Chair 10 Hem Onc [place] [address] [facility] [place] [address] 01/26/2025 10:30 AM EDT Hem/Onc Treatment Hematology/Oncology Treatment, [address], [place] [phone] Desirae, Chair 11 Hem Onc [place] [address] [facility] [address] [place] [address] 01/28/2025 10:20 AM EDT Office Visit Family Medicine [address] [phone] Rafael Ochoa [address] [place] [address] 02/15/2025 10:40 AM EDT Office Visit Neurology [facility] [address] [facility] [place] [address] Corey Smiley MD [address] [place], [place] [phone] 09/02/2025 10:00 AM EST Office Visit Family Medicine [address] [phone] Marge Leal MD [address] [place] [address] [place] [address] Scheduled Orders Name Type Priority Associated Diagnoses Orde r Schedule CBC WITH WBC DIFFERENTIAL Lab STAT 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) Expected: 01/12/2025 (Approximate), Expires: 01/11/2026 COMPREHENSIVE METABOLIC PANEL Lab STAT 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) Expected: 01/12/2025 (Approximate), Expires: 01/11/2026 MAGNESIUM Lab STAT 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) Expected: 01/12/2025 (Approximate), Expires: 01/11/2026 Scheduled Procedures Name Priority Associated Diagnoses Date/Ti me COLONOSCOPY FLEXIBLE PROXIMA L DIAGNOSTIC Recall Constipation, unspecified constipation type Health Maintenance Due Date Last Done Comments DISCUSS TOBACCO CESSATION (REFER TO SMARTSET #3291) 1950 Depression Screening 1962 Alpha-1 Antitrypsin 1969 Cologuard 1996 Fecal Occult Blood Test 1996 Sigmoidoscopy 1996 *BISPHONATE OR OTHER ACCEPTABLE MEDICATION NEEDED FOR OSTEOPOROSIS (REFER TO SMARTSET #1146) 10/28/2016 Adult Wellness Visit 2017 Zoster Vaccines (3 of 3) 11/15/2019 09/20/2019, 06/29 DXA Scan 09/04/2023 09/04/2021, 10/24/2016 COVID-19 Vaccine ( season) 2024 Albumin/Creatinine Ratio 04/13/2025 024, 12/25/2022, 09/03/2021, Additional history exists Influenza Vaccine (FLU shot) (Season Ended) 2025 08/15/2020, 07/07/2019, 07/27/2018, Additional history exists GFR 07/02/2025 12/31/2024, 10/31, 11/19/2024, Additional history exists O2 ASSESSMENT COMPLETED IN PAST YEAR FOR COPD 11/17/2025 11/17/2024 CKD PHOS USE SMARTSET 69359 11/20/202510/31, 11/19/2024, 11/18/2024, Additional history exists CKD HGB USE SMARTSET 53340 01/03/202601/03, 01/03/2025, 12/31/2024, Additional history exists Colonoscopy 10/07/2026 10/07/2023, 05/2024, 07/25/2023, Additional history exists Colorectal Cancer Screening 10/07/2026 DTap/Tdap Vaccines (3 - Td or Tdap) 09/20/2029 09/20/2019, 01/23/2009 Pneumococcal Vaccine: 50+ Years Completed 07/27/2018, 09/24/2016, 01/23/2009 VITAMIN D LEVEL ONCE IN A LIFETIME-USE SMARTSET# 83531 Completed 06/27/2023, 03/01/2019, 03/26/2017, Additional history exists HPV (Gardasil) Vaccine Aged Out No lo nger eligible based on patient's age to complete this topic Hepatitis B Vaccine Aged Out No longe r eligible based on patient's age to complete this topic MENINGOCOCCAL (MENACTRA/MENVEO) Aged Out No longer eligible based on patient's age to complete this topic Meningitis B Vaccine (Bexsero/Trumemba) Aged Out No longer eligible based on patient's age to complete this topic documented as of this encounter Medical Devices Implanted Type Area Tar Pot Worker Device Identifier Shelf Expiration Date Model / Serial / Lot Graft Allomax 1.0 6x16cm - [id number] - [id number] Implanted:Qty : 1 on 07/03/2015 by Jere Souza MD at OR [facility] Right: Breast CR BARD : DAVOL 08/28/2019 [id number] / [id number] / [id number] Graft Allomax 1.0 6x16cm - [id number] - [id number] Implanted:Qty : 1 on 07/03/2015 by Jere Souza MD at OR [facility] Left: Breast CR BARD : DAVOL 04/28/2017 [id number] / [id number] / [id number] Implant Breast Li+ 350-2251bc - [id number] Implanted:Qty : 1 on 12/28/2015 by Jere Souza MD at OR [facility] Left: Breast MENTOR DANYELLE 03/28/2016 [id number] / / [id number] Implant Breast Li+ 350-2251bc - [id number] Implanted:Qty : 1 on 12/28/2015 by Jere Souza MD at OR [facility] Right: Breast MENTOR DANYELLE 03/28/2016 [id number] / / [id number] Port Implant W8f Poly Cath - [id number] Implanted:Qty : 1 on 01/06/2025 by Renny Titus MD at OR [facility] BARD : PERIPHERAL VASCULAR [id number] 11/26/2025 [id number] / / [id number] documented as of this encounter Visit Diagnoses Diagnosis 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)- Primary documented in this encounter Advance Directives * Full Code (Latest Code Status on File) Date Activated Date Inactivated Comments 11/17/2024 12:35 PM 11/21/2024 2:23 PM This order reflects the patients wishes and were consensually agreed upon. Question Answer Comments Discussion of Advance Directives occurred with: Patient * Full Code Date Activated Date Inactivated Comments 12/28/2015 9:22 AM 12/29/2015 4:40 PM This order re flects the patients wishes and were consensually agreed upon. * Full Code Date Activated Date Inactivated Comments 07/03/2015 11:17 AM 07/05/2015 2:47 PM This order reflects the patients wishes and were consensually agreed upon. Question Answer Comments Discussion of Advance Directives occurred with: Not Discussed Care Teams Rink Rat Relationship Specialty Start Date End Date Marge Leal MD [address] [place] [address] [place] [address] PCP - General Family Medicine 12/31/24 documented as of this encounter
--- OUTSIDE RECORDS SUMMARY | 2025-01-12 17:57 | External Medical Summary | Summary of Care ---
Author Name Unknown Organization [facility] Address [address] [facility] [place] [address] Phone [phone] Care Team Providers Care Wire Frame Dipper Name Role Phone Marge Leal MD Primary Care Provide r Reason for Visit * Reason Onset Date Comments Follow Up 01/07/2025 Carbo/Etop Encounter Details Date Type Department Care Team (Late st Contact Info) Description 01/07/2025 Telephone Hematology/Oncology [facility] [place] 200 [facility] [place] [address] Logan Mancia MD [address] [place] [address] Follow Up (Carbo/Etop) Allergies Active Allergy Reactions Criticality Noted Date Comments Varenicline Neuro complications (Please comment) Low 08/23/2019 Vivid nightmares Lisinopril Edema face/lips/tongue High 03/29/2014 Metoprolol Tartrate Edema face/lips/tongue,Other (Please comment) High 05/07/2019 Facial swelling, airway closing up documented as of this encounter (statuses as of 01/10/2025) Medications aspirin 81 MG chewable tabletIndicatio ns:Asymptomatic [...] as of this encounter (statuses as of 01/10/2025) Active Problems Problem Noted Date Diagnosed Date [...] as of this encounter (statuses as of 01/10/2025) Resolved Problems Problem Noted Date Diagnosed Date [...] as of this encounter (statuses as of 01/10/2025) Immunizations Name Administration Dates Next Due Pneumococcal [...] Assessment Author No 11/17/2024 7:33 PM Brooklyn Menedz RN * Because of a physical, mental, [...] documented in this encounter Miscellaneous Notes * Telephone Encounter - Elysia Troy RN - 01/10/2025 11:58 AM EDT Attempted to call patients son- voicemail sounded like business, did not leave voicemail. * Telephone Encounter - Elsyia Troy RN - 01/10/2025 9:23 AM EDT [...] Carbo/Etop. Pt also had port placed yesterdayin [place]. No answer, unable to leave VM on machine as box was full. documented in this encounter Plan of Treatment Upcoming Encounters Date Type Department Care Team (Late st Contact Info) Description 01/24/2025 8:50 AM EDT Laboratory Laboratory [facility] [place] 200 [facility] [place] [place] [phone] Desirae Lab [address] [facility] [place] [address] 01/24/2025 9:30 AM EDT Office Visit Hematology/Oncology [facility] [place] [address] [place] [phone] Logan Mancia MD 200 [facility] [place] [place] [address] 01/24/2025 10:00 AM EDT Hem/Onc Treatment Hematology/Oncology Treatment, [place] [address] [place] [phone] Park, Chair 11 Hem Onc Sc[address] 200 [facility] [address] [place], [place] [address] 01/25/2025 9:15 AM EDT Hem/Onc Treatment Hematology/Oncology Treatment, [place] 200 [place] [phone] Desirae, Chair 10 Hem Onc [facility] 200 [facility] [place] [address] 01/26/2025 10:30 AM EDT Hem/Onc Treatment Hematology/Oncology Treatment, [place] 200 [facility], [place] [phone] Desirae, Chair 11 Hem Onc [facility] 200 [facility] [place] [address] 01/28/2025 10:20 AM EDT Office Visit Family [address] [phone] Rafael Ochoa CRNP [address] [place] [address] [place] [address] 02/15/2025 10:40 AM EDT Office Visit Neurology [facility] 200 [facility] [place] [address] Corey Smiley MD [address] [place], [place] [phone] 09/02/2025 10:00 AM EST Office Visit Family Medicine [address] [phone] Marge Leal MD [address] [place] [address] [place] [address] Scheduled Procedures Name Priority Associated Diagnoses Date/Ti me COLONOSCOPY FLEXIBLE PROXIMA L DIAGNOSTIC Recall Constipation, unspecified constipation type Health Maintenance Due Date Last Done Comments DISCUSS TOBACCO CESSATION (REFER TO SMARTSET #8825) 1950 Depression Screening 1963 Alpha-1 Antitrypsin 1969 [...] COPD 11/17/2025 11/17/2024 CKD PHOS USE SMARTSET 16080 11/20/202510/31, 11/19/2024, 11/18/2024, Additional history exists CKD HGB USE SMARTSET 61763 01/03/202601/03, 01/03/2025, 12/31/2024, Additional history exists Colonoscopy 10/07/2026 10/07/2023, 05/2024, 07/25/2023, Additional history exists Colorectal Cancer Screening 10/07/2026 DTap/Tdap Vaccines (3 - Td or Tdap) 09/20/2029 09/20/2019, 01/23/2009 Pneumococcal Vaccine: 50+ Years Completed 07/27/2018, 09/24/2016, 01/23/2009 VITAMIN D LEVEL ONCE IN A LIFETIME-USE SMARTSET# 48095 Completed 06/27/2023, 03/01/2019, 03/26/2017, Additional history exists [...] this encounter Medical Devices Implanted Type Area Fruit Or Nut Farm Worker Device Identifier Shelf Expiration Date Model / Serial / Lot Graft Allomax 1.0 6x16cm - [id number] - [id number] Implanted:Qty : 1 on 07/03/2015 by Jere Souza [place] [facility] [place] Breast CR BARD : DAVOL 08/28/2019 [id number] / [id number] / [id number] Graft Allomax 1.0 6x16cm - [id number] - [id number] Implanted:Qty : 1 on 07/03/2015 by Jere Souza MD [place] [facility] [place]: Breast CR BARD : DAVOL 04/28/2017 [id number] / [id number] / [id number] Implant Breast Li+ 350-2251bc - [id number] Implanted:Qty : 1 on 12/28/2015 by Jere Souza MD [place] [facility] [place]: Breast MENTOR DANYELLE 03/28/2016 350-2251BC / / [id number] Implant Breast Li+ 350-2251bc - [id number] Implanted:Qty : 1 on 12/28/2015 by Jere Souza MD [place] [facility] [place]: Breast MENTOR DANYELLE 03/28/2016 350-2251BC / / [id number] Port Implant W8f Poly Cath - [id number] Implanted:Qty : 1 on 01/06/2025 by Renny Titus MD at OR [facility] CR BARD : PERIPHERAL VASCULAR [id number] 11/26/2025 [id number] / / [id number] documented as of this encounter Advance Directives * Full Code [...] Directives occurred with: Not Discussed Care Teams Wire Frame Dipper Relationship Specialty Start Date End Date Marge Leal MD [address] [place] [address] [place] [address] PCP - General Family Medicine 12/31/24 documented as of this encounter
--- OUTSIDE RECORDS SUMMARY | 2025-01-12 17:57 | External Medical Summary | Summary of Care ---
Author Name Unknown Organization [facility] Address [address] [facility] [place] [address] Phone [phone] Care Team Providers Care Poultry Scalder Name Role Phone Marge Leal MD Primary Care Provide r Reason for Visit * Reason Onset Date Comments Follow Up 01/07/2025 Carbo/Etop Encounter Details Date Type Department Care Team (Late st Contact Info) Description 01/07/2025 Telephone Hematology/Oncology [facility] [place] 200 [facility] [place] [address] Logan Mancia MD [address] [place] [address] Follow Up (Carbo/Etop) Allergies Active Allergy Reactions [...] Encounter - Elysia Troy RN - 01/10/2025 9:23 AM EDT [...] Carbo/Etop. Pt also had port placed yesterdayin [place]. No answer, unable to leave VM on machine as box was full. documented in this encounter Plan of Treatment Upcoming Encounters Date Type Department Care Team (Late st Contact Info) Description 01/24/2025 8:50 AM EDT Laboratory Laboratory [facility] [place] [address] [phone] Desirae Lab [place] [address] [address] 01/24/2025 9:30 AM EDT Office Visit Hematology/Oncology [facility] [place] [address] [phone] Logan Mancia MD 200 [facility] [place] [address] 01/24/2025 10:00 AM EDT Hem/Onc Treatment Hematology/Oncology Treatment, [address] [place] [phone] Desirae, Chair 11 Hem Onc [place] [address] [address] 01/25/2025 9:15 AM EDT Hem/Onc Treatment Hematology/Oncology Treatment, [address] [place] [phone] Desirae, Chair 10 Hem Onc [place] [address] [place] [address] 01/26/2025 10:30 AM EDT Hem/Onc Treatment Hematology/Oncology Treatment, [place] 200 [facility] [place] [phone] Desirae, Chair 11 Hem Onc [facility] 200 [facility] [place] [address] 01/28/2025 10:20 AM EDT Office Visit Family Medicine [address] [phone] Rafael Ochoa CRNP [address] [place] [address] [place] [address] 02/15/2025 10:40 AM EDT Office Visit Neurology [facility] 200 [facility] [place] [address] Corey Smiley MD [address] [place] [address] 09/02/2025 10:00 AM EST Office Visit Family [address] [phone] Marge Leal MD [address] [place] [address] [place] [address] Scheduled Procedures Name Priority Associated Diagnoses Date/Ti [...] COPD 11/17/2025 11/17/2024 CKD PHOS USE SMARTSET 30669 11/20/202510/31, 11/19/2024, 11/18/2024, Additional history exists CKD HGB USE SMARTSET 66151 01/03/202601/03, 01/03/2025, 12/31/2024, Additional history exists Colonoscopy 10/07/2026 10/07/2023, 01/0 05/2024, 07/25/2023, Additional history exists Colorectal Cancer Screening 10/07/2026 DTap/Tdap Vaccines (3 - Td or Tdap) 09/20/2029 09/20/2019, 01/23/2009 Pneumococcal Vaccine: 50+ Years Completed 07/27/2018, 09/24/2016, 01/23/2009 VITAMIN D LEVEL ONCE IN A LIFETIME-USE SMARTSET# 90860 Completed 06/27/2023, 03/01/2019, 03/26/2017, Additional history exists [...] this encounter Medical Devices Implanted Type Area Practice Consultant Device Identifier Shelf Expiration Date Model / Serial / Lot Graft Allomax 1.0 6x16cm - [id number] - [id number] Implanted:Qty : 1 on 07/03/2015 by Jere Souza MD at OR [facility] [place] Right: Breast CR BARD : DAVOL 08/28/2019 [id number] / [id number] / [id number] Graft Allomax 1.0 6x16cm - [id number] - [id number] Implanted:Qty : 1 on 07/03/2015 by Jere Souza MD at OR [facility] [place] Left: Breast CR BARD : DAVOL 04/28/2017 [id number] / [id number] / [id number] Implant Breast Li+ 350-2251bc - [id number] Implanted:Qty : 1 on 12/28/2015 by Jere Souza MD at OR [facility] [place] Left: Breast MENTOR DANYELLE 03/28/2016 350-2251BC / / [id number] Implant Breast Li+ 350-2251bc - [id number] Implanted:Qty : 1 on 12/28/2015 by Jere Souza MD at OR [facility] [place] Right: Breast MENTOR DANYELLE 03/28/2016 350-2251BC / / [id number] Port Implant W8f Poly Cath - [id number] Implanted:Qty : 1 on 01/06/2025 by Renny Titus MD at OR [facility] BARD : PERIPHERAL VASCULAR [id number] 11/26/2025 [id number] / / [id number] documented as of this encounter Advance Directives [...] Directives occurred with: Not Discussed Care Teams Poultry Scalder Relationship Specialty Start Date End Date Marge Leal MD [address] [place] [address] [place] [address] PCP - General Family Medicine 12/31/24 documented as of this encounter
--- OUTSIDE RECORDS SUMMARY | 2025-01-12 17:58 | External Medical Summary | Summary of Care ---
Author Name Unknown Organization [facility] Address [address] [facility] [address] Phone [phone] Care Team Providers Care Dumpster Operator Name Role Phone Marge Leal MD Primary Care Provide r Reason for Visit * Reason Comments Chemotherapy C1/D3 - Etoposide * Episode Based Medications (Routine) - Pending Review Specialty Diagnoses / Procedures Referred By Tj t Referred To Contact Diagnoses 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) Encounter for antineoplastic chemotherapy Procedures [place] CARBOPLATIN INJECTION [place] FOSAPREPITANT INJECTION [place] ETOPOSIDE 10 MG INJ Logan Mancia MD [address] [place] [address] Phone: tel: fax: Hematology/Oncology Treatment, [address] [address] Phone: tel: fax: Referral ID Status Reason Start Date Expiration Date V isits Requested Visits Authorized [id number] Pending Review 12/29/2024 09/28/2099 99 99 Encounter Details Date Type Department Care Team (Latest Contact Info) Description 01/05/2025 12:15 PM EDT Hem/Onc Treatment Hematology/Oncolog y Treatment, [address] [phone] Park, Chair 8 Hem Onc Sc[address] [address] [place] [address] Chemotherapy induced nausea and vomiting*; Dehydration; 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); Encounter for antineoplastic chemotherapy Allergies Active Allergy Reactions Criticality Noted Date Comments Varenicline Neuro complications (Please comment) Low 08/23/2019 Vivid nightmares Lisinopril Edema face/lips/tongue High 03/29/2014 Metoprolol Tartrate Edema face/lips/tongue,Other (Please comment) High 05/07/2019 Facial swelling, airway closing up documented as of this encounter (statuses as of 01/05/2025) Medications aspirin 81 MG chewable tabletIndicatio ns:Asymptomatic [...] Information Patient taking differently: HS, Reported on 12/06/2024 Ondansetron HCl 8 MG Oral Tablet (Zofran)Indicat [...] as of this encounter (statuses as of 01/05/2025) Active Problems Problem Noted Date Diagnosed Date [...] IB(pT2a, pN0, cM0) - Signed by Lee Goemz MD on 11/24/2024 Overview (03/15/2019): 6 x [...] as of this encounter (statuses as of 01/05/2025) Resolved Problems Problem Noted Date Diagnosed Date [...] as of this encounter (statuses as of 01/05/2025) Immunizations Name Administration Dates Next Due Pneumococcal [...] 07/13/2024 Does the household have a re lar source of income? (Household - for ages [...] AM EDT documented as of this encounter Last Filed Vital Signs Vital Sign Reading Time Taken Comments Blood Pressure 143/68 01/05/2025 3:16 PM EDT Pulse 61 01/05/2025 3:16 PM EDT Temperature 35.9 °C (96.7 °F) 01/05/2025 3:16 PM ED T Respiratory Rate 16 01/05/2025 3:16 PM EDT Oxygen Saturation 92% 01/05/2025 3:16 PM EDT Inhaled Oxygen Concentration - - Weight - - Height - - Body Mass Index - - documented in this encounter Functional Status * Are you [...] Brooklyn Mendez RN documented in this encounter Nursing Notes * Sally Nolasco RN - 01/05/2025 3:43 PM EDT Goals: Patient will remain free from injury. Possible barriers to meeting goals: dizziness, fatigue, ambulating with IV pole Stability of the patient: Moderately stable - low risk of patient condition declining or worsening Summary regarding today's goals: Met: pt remained free of harm today Patient tolerated treatment well without any acute issues or problems. Patient left facility in stable condition and denied any further needs. * Sally Nolasco RN - 01/05/2025 3:42 PM EDT After receiving IVP Decadron, patient started to feel better overall but still "worn down." Patient feels ready for chemo now - Etoposide released. * Sally Nolasco RN - 01/05/2025 3:41 PM EDT IVP Decadron administered since patient feels slightly better but still not quite well at this time. Overall patient is fairly comfortable and denies further needs. * Sally Nolasco RN - 01/05/2025 3:27 PM EDT Chair 7. IV was in place from chemo tx the last 2 days. Flushed with NSS - painful and infiltrated. New IV site to be obtained. Patient came in today for day 3 Etoposide, had an MRI this morning and son brought patient in afterwards because she had not been feeling well since about 12 noon yesterday after her chemo appt. Patient had been feeling very weak, lightheaded, dizzy, fatigued, dry heaving, and nauseas. No vomiting.Had taken PRN Zofran at home and it helped somewhat. Patient was very unsteady pivoting from wheelchair to treatment room chair. Patient had been dry heaving while in tx room but not vomiting. Patient would like to get treatment today and "push through." Patient is accompanied by son today. IV inserted by Hanny Faria RN. RN reviewed symptoms with Dr. Mancia - will give 1L NSS over 2 hours with additional IVP Zofran and Decadron and will see if patient is feeling better, then would like to proceed with Etoposide tx today. Patient and son are agreeable to plan as stated above here. NSS 1L started and IVP Zofran administered since patient continues to dry heave. Patient instructed on use of heat and massage functions where applicable. Patient shown how to operate the heat function of the chair and to alert nursing staff if the chair feels too warm. Patient instructed on the risk of potential estrada while using the heat function. Safety and Risk for Injury Patient will remain free from injury. Ensure appropriate safety devices are available. Provide and maintain safe environment. documented in this encounter Plan of Treatment Upcoming Encounters Date Type Department Care Team (Latest Contact Info) Description 01/06/2025 12:29 PM EDT Hospital Encounter OR [facility], Operating Room, [facility] - 4th Floor [address] [place] [phone] Renny Titus MD [address] [place], [place] [address] [address] 01/06/2025 12:29 PM EDT - 01/06/2025 1:28 PM EDT Surgery OR [facility], Operating Room, [facility] - 4th Floor [address] [place] [phone] Renny Titus MD [address] [place], [place] [address] [address] INSERT TUNNELED CENTRAL VENOUS ACCESS WITH SUBQ PORT 01/06/2025 3:30 PM EDT Immunization/Inject ion Hematology/Oncolog y Treatment, [address] [address] [facility] Hem Onc [address] [place], [place] [address] [address] 01/24/2025 8:50 AM EDT Laboratory Laboratory [place] [address] [place] [phone] Desirae Lab [address] [address] [address] 01/24/2025 9:30 AM EDT Office Visit Hematology/Oncolog y [place] [address] [place] [phone] Logan Mancia MD [address] [place] [address] 01/24/2025 10:00 AM EDT Hem/Onc Treatment Hematology/Oncolog y Treatment, [place] 200 [facility], [place] [phone] Desirae, Chair 11 Hem Onc [address] 200 [facility] [place] [address] 01/25/2025 9:15 AM EDT Hem/Onc Treatment Hematology/Oncolog y Treatment, [address], [place] [phone] Desirae, Chair 10 Hem Onc [address] 200 [facility] [place] [address] 01/26/2025 10:30 AM EDT Hem/Onc Treatment Hematology/Oncolog y Treatment, [address], [place] [phone] Desirae, Chair 11 Hem Onc [address] 200 [facility] [place] [address] 01/28/2025 10:20 AM EDT Office Visit Family [address] [phone] Rafael Ochoa CRNP [address] [place] [address] [place] [address] 02/15/2025 10:40 AM EDT Office Visit Neurology [facility] [place] 200 [facility] [place] [address] Corey Smiley MD [address] [place], [place] [phone] 09/02/2025 10:00 AM EST Office Visit Family [address] [phone] Marge Leal MD [address] [place] [address] [place] [address] Scheduled Procedures Name Priority Associated Diagnoses Date/Ti me INSERT TUNNELED CENTRAL VENOUS ACCESS WITH SUBQ PORT Malignant neoplasm of lung, unspecified laterality, unspecified part of lung (HCC) 01/06/2025 12:29 PM EDT COLONOSCOPY FLEXIBLE PROXIMAL DIAGNOSTIC Recall Constipation, unspecified constipation type Health Maintenance Due Date Last Done Comments DISCUSS TOBACCO CESSATION (REFER TO SMARTSET #4279) 1950 Depression Screening 1962 Alpha-1 Antitrypsin 1969 [...] COPD 11/17/2025 11/17/2024 CKD PHOS USE SMARTSET 30438 11/20/202510/31, 11/19/2024, 11/18/2024, Additional history exists CKD HGB USE SMARTSET 30763 01/03/202601/03, 01/03/2025, 12/31/2024, Additional history exists Colonoscopy 10/07/2026 10/07/2023, 05/2024, 07/25/2023, Additional history exists Colorectal Cancer Screening 10/07/2026 DTap/Tdap Vaccines (3 - Td or Tdap) 09/20/2029 09/20/2019, 01/23/2009 Pneumococcal Vaccine: 50+ Years Completed 07/27/2018, 09/24/2016, 01/23/2009 VITAMIN D LEVEL ONCE IN A LIFETIME-USE SMARTSET# 09595 Completed 06/27/2023, 03/01/2019, 03/26/2017, Additional history exists [...] encounter Medical Devices Implanted Type Area Fruit Packer Face And Fill Device Identifier Shelf Expiration Date Model / Serial / Lot Graft Allomax 1.0 6x16cm - [id number] - [id number] Implanted:Qty: 1 on 07/03/2015 by Jere Souza MD at OR [facility] [place] Right: Breast CR BARD : DAVOL 08/28/2019 [id number] / [id number] / [id number] Graft Allomax 1.0 6x16cm - [id number] - [id number] Implanted:Qty: 1 on 07/03/2015 by Jere Souza MD at OR [facility] [place] Left: Breast CR BARD : DAVOL 04/28/2017 [id number] / [id number] / [id number] Implant Breast Li+ 350-2251bc - [id number] Implanted:Qty: 1 on 12/28/2015 by Jere Souza MD at OR [facility] [place] Left: Breast MENTOR DANYELLE 03/28/2016 350-2251BC / / [id number] Implant Breast Li+ 350-2251bc - [id number] Implanted:Qty: 1 on 12/28/2015 by Jere Souza MD at OR [facility] [place] Right: Breast MENTOR DANYELLE 03/28/2016 [id number] / / [id number] documented as of this encounter Visit Diagnoses Diagnosis Chemotherapy induced nausea and vomiting- Primary Nausea with vomiting Dehydration 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) Encounter for antineoplastic chemotherapy Malignant neoplasm of lung, unspecified laterality, unspecified part of lung (HCC) documented in this encounter Administered Medications Inactive Administered Medications - up to 3 most recent administrations Medication Order MAR Action Action Date Dose Rate Site dexamethasone sod phosphate PF (Decadron) 10 MG/ML inj 8 mg 8 mg, IV Push, ONCE, On Fri01/05/25 at 1130, For 1 dose, PROTECT FROM LIGHTIndications:Chemother apy induced nausea and vomiting,Dehydration,Prima ry malignant neoplasm of left upper lobe of lung (HCC) Given 01/05/2025 12:33 PM EDT 8 mg etoposide (VEPESID) 190 mg in NSS 500 mL infusion 190 mg (rounded from 192 mg = 100 mg/m2 1.92 m2 Treatment Plan BSA from Recorded weight), IV Piggyback, ONCE, 1 dose, On Fri01/05/25 at 1430, Administer over 60 Minutes, Recommended concentration is less than or equal to 0.4 mg/mL. If concentration is greater than 0.4 mg/mL recommend to administer through 0.22 micron low protein binding filter.Indications: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),Encounter for antineoplastic chemotherapy Start Infusion 01/05/2025 1:21 PM EDT 190 mg 519.5 mL/hr NSS infusion FOR HYDRATION Intravenous, at 500 mL/hr Administer over 2 Hours, ONCE, 1 dose, On Fri01/05/25 at 1230Indications:Chemothera py induced nausea and vomiting,Dehydration,Prima ry malignant neoplasm of left upper lobe of lung (HCC) Start Infusion 01/05/2025 11:40 AM EDT 1,000 mL 500 mL/hr NSS infusion Intravenous, at 50 mL/hr, PRN, Starting on Fri01/05/25 at 1400, Until Fri01/05/25 at 1953, Maintenance lineIndications: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),Encounter for antineoplastic chemotherapy Start Infusion 01/05/2025 1:16 PM EDT 50 mL/hr ondansetron (Zofran) inj 8 mg 8 mg, IV Push, ONCE, On Fri01/05/25 at 1130, For 1 doseIndications:Chemothera py induced nausea and vomiting,Dehydration,Prima ry malignant neoplasm of left upper lobe of lung (HCC) Given 01/05/2025 11:45 AM EDT 8 mg documented in this encounter Advance Directives * [...] Directives occurred with: Not Discussed Care Teams Dumpster Operator Relationship Specialty Start Date End Date Marge Leal MD [address] [place] [address] [place] [address] PCP - General Family Medicine 12/31/24 documented as of this encounter
--- OUTSIDE RECORDS SUMMARY | 2025-01-12 17:58 | External Medical Summary | Summary of Care ---
Author Name Unknown Organization [facility] Address [address] [facility] [place] [address] Phone [phone] Care Team Providers Care Checkering Machine Operator Name Role Phone Marge Leal MD Primary Care Provide r Reason for Visit * Reason Onset Date Comments Order Request 01/03/2025 ac Encounter Details Date Type Department Care Team (Late st Contact Info) Description 01/03/2025 Telephone Hematology/Oncology Treatment, [place] [address] [place] [address] Logan Mancia MD [address] [place] [address] Order Request (ac) Allergies Active Allergy Reactions Criticality Noted Date [...] Assessment Author No 11/17/2024 7:33 PM Brooklyn Mendez, KB * Because of a physical, mental, or [...] encounter Miscellaneous Notes * Telephone Encounter - Stephanie Taylor OSA - 01/05/2025 2:58 PM EDT Added. Does the pt know when and where to come to? * Telephone Encounter - Elysia Troy RN - 01/05/2025 2:50 PM EDT Referral entered for fulphila at [facility]. Spoke to Aleshia- patient is to arrive at noon tomorrow for 1pm procedure. Likely will be discharged between 3-4. [facility] scheduling: can you please add patient for injection appt "fulphila- coming after port placement" tomorrow around 3:30pm? She is aware. Thanks! * Telephone Encounter - Elysia Troy RN - 01/05/2025 7:38 AM EDT Message sent to Lety. * Telephone Encounter - Mari Paulino OSA - 01/04/2025 8:37 AM EDT Lety working * Telephone Encounter - Elysia Troy RN - 01/03/2025 2:07 PM EDT Order placed, beacon updated. Patient is scheduled for port placement at [facility]- built day in for pegfilgrastim at [facility] withcycle 1 only. Precert: patient will need fulphila 01/06/25 at [facility] (built this as a separate plan), then will get it at after that (starting 01/27/25). Please obtain auth. Thanks! * Telephone Encounter - Elysia Troy RN - 01/03/2025 1:[address] Mancia, give pegfilgrastim on day [address] Mancia: please place order- thanks! documented in this encounter Plan of Treatment Upcoming Encounters Date Type Department Care Team (Latest Contact Info) Description 01/06/2025 12:29 PM EDT Hospital Encounter OR [facility], Operating Room, [facility] - 4th Floor [address] [place] [phone] Renny Titus MD [address] [place], [place] [address] [address] 01/06/2025 12:29 PM EDT - 01/06/2025 1:28 PM EDT Surgery OR [facility], Operating Room, [facility] - 4th Floor [address] [place] [phone] Renny Titus MD [address] [place] [address] [place] [address] INSERT TUNNELED CENTRAL VENOUS ACCESS WITH SUBQ PORT 01/06/2025 3:30 PM EDT Immunization/Inject ion Hematology/Oncolog y Treatment, [address] [place] [address] [facility], Chair7 Hem Onc [address] [place] [address] [place] [address] 01/24/2025 8:50 AM EDT Laboratory Laboratory [facility] [place] Duran Merrill [address] [place] [phone] Des[place]ae, Lab Scenery [address] [facility] [place] [address] 01/24/2025 9:30 AM EDT Office [place] [facility] [place] [address] [place], [place] [phone] Logan Mancia MD [address] [place] [address] 01/24/2025 10:00 AM EDT Hem/Onc Treatment Hematology/Oncolog y Treatment, [address], [place] [phone] Des[place]ae, Chair 11 Hem Onc Scenery [address] [facility] [place] [address] 01/25/2025 9:15 AM EDT Hem/Onc Treatment Hematology/Oncolog y Treatment, [address], [place] [phone] Desirae, Chair 10 Hem Onc Scenery [address] [facility] [place] [address] 01/26/2025 10:30 AM EDT Hem/Onc Treatment Hematology/Oncolog y Treatment, [address], [place] [phone] Desirae, Chair 11 Hem Onc Scenery [address] [facility] [place], [place] [address] 01/28/2025 10:20 AM EDT Office Visit Family Medicine [address] [place] [phone] Rafael Ochoa [address] [place] [address] 02/15/2025 10:40 AM EDT Office Visit Neurology [facility] [place] [address] [facility] [place] [address] Corey Smiley MD [address] [place] [address] 09/02/2025 10:00 AM EST Office Visit Family Medicine [address] [place] [phone] Marge Leal MD [address] [place] [address] [place] [address] Scheduled Procedures Name Priority Associated Diagnoses Date/Ti [...] COPD 11/17/2025 11/17/2024 CKD PHOS USE SMARTSET 61658 11/20/202510/31, 11/19/2024, 11/18/2024, Additional history exists CKD HGB USE SMARTSET 89736 01/03/202601/03, 01/03/2025, 12/31/2024, Additional history exists Colonoscopy 10/07/2026 10/07/2023, 05/2024, 07/25/2023, Additional history exists Colorectal Cancer Screening 10/07/2026 DTap/Tdap Vaccines (3 - Td or Tdap) 09/20/2029 09/20/2019, 01/23/2009 Pneumococcal Vaccine: 50+ Years Completed 07/27/2018, 09/24/2016, 01/23/2009 VITAMIN D LEVEL ONCE IN A LIFETIME-USE SMARTSET# 62097 Completed 06/27/2023, 03/01/2019, 03/26/2017, Additional history exists [...] this encounter Medical Devices Implanted Type Area Laundry Machine Operator Device Identifier Shelf Expiration Date Model / Serial / Lot Graft Allomax 1.0 6x16cm - [id number] - [id number] Implanted:Qty: 1 on 07/03/2015 by Jere Souza [place] [facility] [place] Breast CR BARD : DAVOL 08/28/2019 [id number] / [id number] / [id number] Graft Allomax 1.0 6x16cm - [id number] - [id number] Implanted:Qty: 1 on 07/03/2015 by Jere Souza MD [place] [facility] [place]: Breast CR BARD : DAVOL 04/28/2017 [id number] / [id number] / [id number] Implant Breast Li+ [id number] - [id number] Implanted:Qty: 1 on 12/28/2015 by Jere Souza MD [place] [facility] [place] Breast MENTOR DANYELLE 03/28/2016 [id number] / / [id number] Implant Breast Li+ 350-2251bc - [id number] Implanted:Qty: 1 on 12/28/2015 by Jere Souza MD at [facility] Right: Breast MENTOR DANYELLE 03/28/2016 [id number] / / [id number] documented as of this encounter Visit Diagnoses Diagnosis 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
--- OUTSIDE RECORDS SUMMARY | 2025-01-12 17:58 | External Medical Summary | Summary of Care ---
Author Name Unknown Organization [facility] Address [address] [facility] [place] [address] Phone [phone] Care Team Providers Care Manager Business Information Name Role Phone Marge Leal MD Primary Care Provide r Reason for Visit * Auth/Cert Specialty Diagnoses / Procedures Referred By Contac t Referred To Contact Diagnoses Malignant neoplasm of lung, unspecified laterality, unspecified part of lung (HCC) Malignant neoplasm of lung, unspecified laterality, unspecified part of lung (HCC) [C34.90] Procedures INSER TUNN ACC DEV;5 YRS/OLDER INSERT TUNNELED CENTRAL VENOUS ACCESS WITH SUBQ PORT Renny Titus MD [address] [place] [address] Phone: tel: fax: OR [facility], Operating Room, [facility] - 4th Floor [address] [place] [address] Phone: tel: Referral ID Status Reason Start Date Expiration Date Visits Re quested Visits Authorized [id number] Encounter Details Date Type Department Care Team (Latest Contact Info) Description 01/06/2025 11:05 AM EDT - 01/06/2025 2:55 PM EDT Hospital Encounter OR [facility], Operating Room, [facility] - 4th Floor [address] [place] [phone] Renny Titus MD [address] [place] [address] Discharge Disposition: Home - Self Care Allergies Active Allergy Reactions Criticality Noted Date Comments Varenicline Neuro complications (Please comment) Low 08/23/2019 Vivid nightmares Lisinopril Edema face/lips/tongue High 03/29/2014 Metoprolol Tartrate Edema face/lips/tongue,Other (Please comment) High 05/07/2019 Facial swelling, airway closing up documented as of this encounter (statuses as of 01/07/2025) Medications aspirin 81 MG chewable tabletIndicatio ns:Asymptomatic [...] as of this encounter (statuses as of 01/07/2025) Active Problems Problem Noted Date Diagnosed Date [...] as of this encounter (statuses as of 01/07/2025) Resolved Problems Problem Noted Date Diagnosed Date [...] as of this encounter (statuses as of 01/07/2025) Immunizations Name Administration Dates Next Due Pneumococcal [...] No 07/13/2024 Does the household have a [facility] source [facility] income? (Household - for ages [...] Sign Reading Time Taken Comments Blood Pressure 149/73 01/06/2025 2:52 PM EDT Pulse 86 01/06/2025 2:52 PM EDT Temperature 36.8 °C (98.2 °F) 01/06/2025 2:52 PM ED T Respiratory Rate 20 01/06/2025 2:52 PM EDT Oxygen Saturation 93% 01/06/2025 2:52 PM EDT Inhaled Oxygen Concentration - - Weight 75.3 kg (166 lb) 01/06/2025 11:24 AM EDT Height 172.7 cm (5' 8") 01/06/2025 11:24 AM EDT Body Mass Index 25.24 01/06/2025 11:24 AM EDT documented in this encounter Functional Status * [...] Brooklyn Mendez RN documented in this encounter Discharge Instructions * Discharge Instr - AVS* Renny Titus MD - 01/06/2025 2:03 PM EDT Discharge Date: 01/06/2025 Provider: Dr. Renny Titus If you are experiencing any problems related to your procedure, please contact Interventional Radiology at [phone] during normal business hours: Friday- Friday 7:30 am - 4 pm. If a problem occursoutside of normal business hours, please call the hospital chief transfer and pumphouse operator at [phone] and ask for theInterventional Radiologist business continuity coordinator. Contact scheduling for Interventional Radiology at [phone] during normal business hours: Friday-Friday, 7:30 am - 4 pm. The information below provides you with the instructions and the list of medications you need to betaking following discharge from the hospital. If you have any questions, please ask before leaving.Please carry this letter with you when you see your doctor in the clinic. If you have questions, you can reach us at the numbers above. SPECIAL INSTRUCTIONS Mediport Insertion (Implanted Central Venous Access) A Mediport is a sealed chamber covered by a silicone disc that is surgically placed in a pocket under the skin on the upper chest, just below the collarbone. This chamber connects to a flexible tube that goes into a large vein in the neck. The tip is near the heart. The port provides direct access to the bloodstream and can be used in drawing blood samples and giving intravenous fluids and medications. Some ports allow CT scan injections; these ports are referred to as "Power Ports." The port will be visible only as a small raised area beneath your skin. Home Care If you experience pain or discomfort at the site you may use a cold pack on the site and/or take acetaminophen (Tylenol) or your preferred pain medicine as directed. Avoid contact sports or any activity that may cause blunt force impact to the port area, as it may damage your port. Avoid strenuous activity for 24 to 48 hours after the procedure. Do not lift anything heavier than 10 pounds for 3 days after the procedure. Gradually increase your activity after 24 to 48 hours after the procedure. No dressing changes or wound care are needed at the insertion site. Your wound is closed with sutures on the inside and then sealed on the outside with a special "skin glue" called Dermabond (a surgical glue). Depending on your physician's preference, there may also be "steri strips" applied. It isvery important to let these special bandages fall off on their own. Please do not scrub or pull these bandages off. You may gently wash the area with soap and water. Depending on your physician's preference, there may also be gauze and Tegaderm (clear) bandage overthe Mediport insertion site. You may remove this bandage in 24 hours. You may shower in 24 hours. Gently wash the area and pat it dry. Please DO NOT take a bath, soak in a hot tub, or swim until the wound is completely healed. Your port must be accessed and flushed/heparinized every 30 days if it is not currently being used. When to Call Interventional Radiology Call Interventional Radiology right away if you have any of the following: Fever above 100 degrees Fahrenheit Increased bleeding, redness, swelling, warmth, or discharge at the incision site. Constant or increasing pain, numbness, coldness, or tingling around the incision area. Vomiting or nausea that does not go away If at any time you experience any of the following or feel you are having a medical emergency, [id number] for emergency assistance. Chest Pain Sudden, severe shortness of breath Rapid heart rate Sudden onset of weakness Do not smoke or use tobacco products in any way! If you feel suicidal or homicidal, please call the crisis hotline at 8-205-938-RCHS ([phone]) MODERATE SEDATION You may have received medication that made you comfortable/sedated you during your procedure. This is considered moderate sedation. This medication was given to relax you. You may also not remember having the procedure done. It may take up to 24 hours for this medication to be out of your system. Because of this, you should observe the following for the next 24 hours: Do not drink alcohol or take depressant drugs. Do not operate any type of machinery that requires hand-eye coordination. Do not sign any legal papers or documents. Do not make any financial decisions. You should be in the presence of an adult for the remainder of the day. If you are experiencing any problems related to your procedure, you should contact the Interventional Radiology physician unless otherwise directed. Driving: You may resume driving 1 day . Diet: You may resume your current diet as tolerated. Return to work or school: You may return to school or work 1 days after the procedure, unless otherwise instructed by the physician. documented in this encounter Progress Notes * Renny Titus MD - 01/06/2025 2:05 PM EDT [facility]-[address] [address] OUTPATIENT SURGERY DISCHARGE SUMMARY NOTE Name: Joanie Mcclure Location: [facility]/[place] Date: 01/06/2025 Time: 2:06 PM Surgery Date: 01/06/2025 Procedure: INSERT TUNNELED CENTRAL VENOUS ACCESS WITH SUBQ PORT Right Surgeon: Renny Titus MD Discharge Diagnosis: port placement After examination of this patient, I have determined she is ready for discharge to home when the patient meets criteria. Discharge instructions were given to the patient. documented in this encounter H&P Notes * Renny Titus MD - 01/06/2025 12:24 PM EDT HISTORY & PHYSICAL - Interventional Radiology Service [facility]-[address] [address] Name: Joanie Mcclure Location: 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 Repeat in 6 months. Tobacco use disorder Past Surgical History: Procedure Laterality Date BREAST RECONSTRUCTION W/MAINTENANCE TEAM LEADER Bilateral 07/03/2015 BREAST RECONSTRUCTION WITH TISSUE MAINTENANCE TEAM LEADER performed by Jere Souza MD at [facility] BREAST SURGERY PROCEDURE NEC biopsy x 3 left COLONOSCOPY W/ LESION REMOVAL, SNARE 12/12/2008 [address] path, repeat in 3-5 years COLONOSCOPY, DIAGNOSTIC (RECTUM) 01/25/2014 adenomatous polyp, repeat 5 yrs/COLONOSCOPY FLEXIBLE PROXIMAL DIAGNOSTIC performed by Reuben Muse MD at [facility] COLONOSCOPY, DIAGNOSTIC (RECTUM) 03/31/2019 poor prep, repeat/COLONOSCOPY FLEXIBLE PROXIMAL DIAGNOSTIC performed by Reuben Muse MD at [facility] COLONOSCOPY, DIAGNOSTIC (RECTUM) 04/23/2019 normal, repeat 3 yrs/COLONOSCOPY FLEXIBLE PROXIMAL DIAGNOSTIC performed by Nadya Ivy MD at [facility] COLONOSCOPY, DIAGNOSTIC (RECTUM) 07/25/2023 poor prep/COLONOSCOPY FLEXIBLE PROXIMAL DIAGNOSTIC performed by Nadya Ivy MD at [facility] COLONOSCOPY, DIAGNOSTIC (RECTUM) N/A 10/07/2023 COLONOSCOPY FLEXIBLE PROXIMAL DIAGNOSTIC performed by Juan Guerra MD at ENDOSCOPY [facility] EXTRACTION,ERUPTED TOOTH OR EXPOSED ROOT edentulous IMPLANT, BIOLOGIC, SOFT TISSUE REINFORCE Bilateral 07/03/2015 IMPLANT, BIOLOGIC, SOFT TISSUE REINFORCE performed by Jere Souza MD at [facility] LYMPHADENECTOMY VIA THORACOSCOPY Left 11/17/2024 ROBOTIC THORACOSCOPY WITH LYMPHADENECTOMY performed by Lee Gomez MD at [facility] MASTECTOMY, SIMPLE, COMPLETE Bilateral 07/03/2015 MASTECTOMY SIMPLE COMPLETE performed by Em Briones MD at [facility] REMOVE TONSILS & ADENOIDS, UNDER 12 REPLACE TISSUE MAINTENANCE TEAM LEADER Bilateral 12/28/2015 REPLACEMENT EXPANDERS WITH PERMANENT PROSTHESIS performed by Jere Souza MD at [facility] REVISE UPPER EYELID/EXCESS SKIN Bilateral 05/07/2019 Dr. Smith-B/L Blephroplasty THORACOSCOPY W/ WEDGE RESECTION, INITIAL Left 11/17/2024 ROBOTIC THORACOSCOPY W/ WEDGE RESECTION, INITIAL performed by Lee Gomez MD at [facility] TOTAL ABD HYSTERECTOMY W/WO REMOVAL OF TUBE(S) Social History Socioeconomic History Marital status: Spouse name: Not on file Number of children: Not on file Years of education: Not on file Highest education level: Not on file Occupational History Not on file Tobacco Use Smoking status: Every Day Current packs/day: 1.00 Average packs/day: 1.5 packs/day for 61.3 years (91.8 ttl pk-yrs) Types: Cigarettes Start date: 1962 Passive exposure: Current Smokeless tobacco: Never Vaping Use Vaping status: Never Used Substance and Sexual Activity Alcohol use: Yes Comment: occ. Drug use: No Sexual activity: Not on file Other Topics Concern Not on file Social History Narrative Not on file Social Needs Financial Resource Strain: Low Risk (07/13/2024) Financial Resource Strain Do you have any trouble paying for your medications, or do you think you might in the future? (Adult - for ages 18 years and over): No Does your family have trouble paying for medicine? (Household - for ages 0-17 years): Not on file Food Insecurity: No Food Insecurity (07/13/2024) Food Insecurity Worried About Running Out of Food in the Last Year: Never true Ran Out of Food in the Last Year: Never true Do you need food for this week? (Adult - for ages 18 years and over): No Transportation Needs: No Transportation Needs (07/13/2024) Transportation Needs Do you have trouble getting a ride to medical visits or work? (Adult - for ages 18 years and over):Not on file Does your family have a hard time getting a ride to doctors’ visits? (Household - for ages 0-17 years): Not on file Has lack of transportation kept you from medical appointments, meetings, work, or from getting things needed for daily living? Check all that apply. (Adult - for ages 18 years and over): No Do you (or your family) have trouble finding or paying for a ride (transportation)? (Household - for ages 0-17 years): Not on file Social Connections: Socially Integrated (07/13/2024) Social Connections How often do you feel lonely or isolated from those around you? (Adult - for ages 18 years and over): Rarely Housing Stability: Low Risk (07/13/2024) Housing Stability Do you currently live in a skilled nursing or have no steady place to sleep at night? (Adult - for ages 18 years and over): No Do you think you are at risk of becoming homeless? (Adult - for ages 18 years and over): Not on file Does your family worry about paying for your home or becoming homeless? (Household - for ages 0-17 years): Not on file Are you homeless or worried that you might be in the future? (Adult - for ages 18 years and over): No Are you (or your family) homeless or worried that you might be in the future? (Household - for ages0-17 years): Not on file Family History Problem Relation Name Age of Onset Heart Disorder Father age 64--[place] Diabetes Mother Diabetes Brother Hypertension Sister Review of patient's allergies indicates: Allergen Reactions Lisinopril Edema face/lips/tongue Metoprolol Tartrate Edema face/lips/tongue and Other (Please comment) Facial swelling, airway closing up Chantix [Varenicline] Neuro complications (Please comment) Vivid nightmares Current Facility-Administered Medications Medication Dose Route Frequency Provider Last Rate Last Admin Isolyte-S pH 7.4 infusion 25 mL/hr Intravenous Continuous Renny Titus MD 25 mL/hr at 01/06/25 [id number] mL/hr at 01/06/25 1139 Facility-Administered Medications Ordered in Other Encounters Medication Dose Route Frequency Provider Last Rate Last Admin LORAzepam (Ativan) tab 0.5 mg 0.5 mg Oral Once PRN Logan Mancia MD NSS infusion Intravenous PRN Logan Mancia MD Finish Infusion at 01/03/25 1718 oxygen GAS Inhalation Oxygen Logan Mancia MD sodium chloride 0.9 % flush/inj 10 mL 10 mL IV Push PRN Logan Mancia MD sodium chloride 0.9 % flush/inj 20 mL 20 mL IV Push PRN Logan Mancia MD 20 mL at [id number] REVIEW OF SYSTEMS: Constitutional: (-) fever chills sweats or weight loss Cardiovascular: (-) negative: no chest pain, dyspnea, syncope, or palpitations Pulmonary: (-) negative: no cough, wheezing, or shortness of breath Abdominal/GI: (-) negative: no pain, heartburn, dysphagia, bleeding, change in bowel habits, nauseaor vomiting OBJECTIVE: BP 134/81 | Pulse 78 | Temp 36.7 °C (98.1 °F) (Tympanic) | Resp 18 | Ht 1.727 m (5' 8") | Wt 75.3kg (166 lb) | SpO2 92% | BMI 25.24 kg/m² | BSA 1.9 m² PHYSICAL EXAM: Constitutional: no acute distress CV: normal rate and rhythm, no murmur, gallops or rub Chest: normal respiratory effort, lungs clear to auscultation and percussion, breath sounds normal Abdomen: normal: soft, bowel sounds normal, no masses, tenderness or organomegaly LABS: CBC Results: PT INR Results: BUN Results: Lab Results Component Value Date/Time BUN - [facility] 20 12/31/2024 10:19 AM BUN - [facility] 19 11/20/2024 05:25 AM BUN - [facility] 23 (H) 11/19/2024 04:50 AM BUN - [facility] 22 (H) 08/14/2020 09:34 AM BUN - [facility] 27 (H) 05/17/2020 10:34 AM BUN - [facility] 23 (H) 09/20/2019 12:10 PM Creatinine Results: Lab Results Component Value Date/Time CREATININE - [facility] 1.2 (H) 12/31/2024 10:19 AM CREATININE - [facility] 0.9 11/20/2024 05:25 AM CREATININE - [facility] 1.1 (H) 11/19/2024 04:50 AM CREATININE - [facility] 1.2 (H) 08/14/2020 09:34 AM CREATININE - [facility] 1.3 (H) 05/17/2020 10:34 AM CREATININE - [facility] 1.4 (H) 09/20/2019 12:10 PM CREATININE, RANDOM URINE - [facility] 41 04/13/2024 12:29 PM CREATININE, RANDOM URINE - [facility] 41 12/25/2022 11:34 AM CREATININE, RANDOM URINE - [facility] 36 09/03/2021 12:25 PM CREATININE, RANDOM URINE - [facility] 29 08/15/2020 11:03 AM CREATININE, RANDOM URINE - [facility] 27 07/12/2019 11:42 AM CREATININE, RANDOM URINE - [facility] 74 07/27/2018 01:25 PM Potassium Results: Lab Results Component Value Date/Time POTASSIUM - [facility] 4.2 12/31/2024 10:19 AM POTASSIUM - [facility] 3.3 (L) 11/20/2024 05:25 AM POTASSIUM - [facility] 3.1 (L) 11/19/2024 04:50 AM POTASSIUM - [facility] 3.9 08/14/2020 09:34 AM POTASSIUM - [facility] 4.0 05/17/2020 10:34 AM POTASSIUM - [facility] 3.6 09/20/2019 12:10 PM POTASSIUM POCT - [facility] 3.2 (L) 11/17/2024 11:46 AM POTASSIUM POCT - [facility] 3.0 (L) 11/17/2024 10:29 AM POTASSIUM POCT - [facility] 3.0 (L) 11/17/2024 10:16 AM INFORMED CONSENT: Yes PRE-SEDATION ASSESSMENT IMPRESSION/PLAN: Port placement Renny Titus MD documented in this encounter Nursing Notes * Shayy Zacarias RN - 01/06/2025 3:02 PM EDT [address] [address] [facility] Surgery Discharge Note Name: Joanie Mcclure Date: 01/06/2025 Time: 3:02 PM Discharge Disposition: Home Responsible adult as escort home: yes Transport Mode: Wheelchair Accompanied by: son To: Clinic Hematology on 5th floor Belongings with patient: Yes Patient meets criteria to be transferred or discharged. * Shayy Zacarias RN - 01/06/2025 2:55 PM EDT 1435- Patient had 30ml emesis of dark brown liquid and mucous. Given alcohol wipe to sniff to see if helps nausea. 1440- States feels better at present. Nausea better than before. 1445- OOB to BR and ambulated to BR with assist. Voided and returned to bed. * Oanh Zimmer RN - 01/06/2025 1:40 PM EDT Pt condition was reassessed by Dr. Renny Titus immediately prior to start of moderate sedation and procedure. documented in this encounter OR Notes * OR Surgeon - Renny Titus MD - 01/06/2025 2:04 PM EDT Procedure: chest medical port placement 01/06/25 INDICATION: central intravenous access needed for chemotherapy.] Breast CA ATTENDING (OPERATING PHYSICIAN): [Ariela] CONSENT: After a detailed discussion of the procedure, risks, benefits and alternative treatment options, informed consent was obtained. TIME OUT: A time out procedure was performed. The patient's identification was verified. Informed consent with agreement of procedure, site and position was obtained. All necessary equipment was available prior to procedure. CONTRAST: No contrast was administered. COMPLICATIONS: None. ANESTHESIA: [Local lidocaine.] [IV Versed.] [IV Fentanyl.] SEDATION TIME: [Start to end: [[id number]]. Qualified nurse sedation observer [Lorena, KB.] MEDICATIONS: See MAR PROCEDURE DESCRIPTION: The [right] neck and chest were prepped and draped in the usual sterile fashion. After local anesthesia, a small incision was made at the site of venous access in the neck. Using real-time ultrasound guidance, the internal jugular vein was punctured with a micro puncture needle. Digital ultrasound images were acquired and digitally archived. A wire and sheath were used to secure access to the internal jugular vein access using fluoroscopic guidance. [A second incision was made in the upper chest and a pocket was created. The medical port catheter was tunneled from the pocket to the venotomy site. A peel- away sheath was placed through the venotomy over the wire and the catheter was advanced through a peel-away sheath and positioned under fluoroscopic guidance. The catheter was then measured to 26 cm, cut, and attached to a power injectable port.] Once the medical port and catheter were in satisfactory position, the medical port was accessed, had appropriate blood return, and easily flushed and was locked with dilute heparin. [The incision wasthen closed in layers with absorbable sutures and tissue adhesive.] The venotomy site was closed with [absorbable suture and] tissue adhesive. I personally performed the procedure. Findings: Ultrasound shows an anechoic and compressible [right] internal jugular vein. The medical port is inthe upper chest with the catheter tip at the [right atrium] Impression: Successful placement of a chest power injectable medical port. documented in this encounter Miscellaneous Notes * Sedation Note - Renny Titus MD - 01/06/2025 2:02 PM EDT Post Sedation Evaluation: Cardiovascular status: acceptable and BP returned to baseline Level of consciousness: awake and alert Airway patency: patent Distress - NAD Hydration status - well hydrated Nausea/vomiting - not present Pain Evaluation Pain Assessment Flowsheet Row Most Recent Value Pain Assessment Scale [facility] Adult Scale 0-10 (18 years and older) Pain Score 0 (no pain) Vital Signs: Temp: 36.7 °C (98.1 °F) (01/06 1124) BP: 159/75 (01/06 135) Pulse: 61 (01/06 135) Resp: 24 (01/06 1355) SpO2: 96 % (01/06 1355) I have personally examined the patient, prescribed the necessary medications as charted, and certify that Joanie Mcclure is recovered for safe discharge from my face to face care. * Postprocedure Note - Renny Titus MD - 01/06/2025 1:29 PM EDT PROCEDURE NOTE - Interventional Radiology [facility]-[address] [address] Name: Joanie Mcclure Location: [facility]/[place] Date: 01/06/2025 Time: 2:01 PM PROCEDURE: port placement PROOFREADER: Dr. Renny Titus ASSISTANTS: none ANESTHESIA: local conscious sedation COMPLICATIONS: none SPECIMEN: none ESTIMATED BLOOD LOSS: negligible FINDINGS: right IJ patent * Pre-Sedation Assessment - Renny Titus MD - 01/06/2025 1:15 PM EDT PRE-SEDATION ASSESSMENT PRE-SEDATION ASSESSMENT: Port Placement Level of sedation planned: Moderate Patient's allergies reviewed: Yes H&P Review / Interval Note Documentation: There is no H&P on file. Difficulty with sedation / anesthesia: No Sleep apnea: No History of snoring: No History of difficult intubation: No Decreased ROM neck flexion/extension: No Tracheal deviation: No Decreased ability to open mouth / TMJ: No Loose teeth / dentures / partial: No Congenital deformities / abnormalities: No Dysphagia: No Mallampati Classification: II - soft palate, uvula, fauces visible Chest: Clear Heart: Regular Rhythm Adequate Vascular Access: Yes ASA Risk Stratification (Select One): ASA 2 - Mild systemic disease, no functional limitations The patient was identified and the procedure verified: Yes The patient was reevaluated immediately prior to the sedation: 01/06/2025 1:15 PM documented in this encounter Plan of Treatment Upcoming Encounters Date Type Department Care Team (Late st Contact Info) Description 01/24/2025 8:50 AM EDT Laboratory Laboratory [facility] [place] [address] [facility] [place] [phone] Desirae, Lab [address] [place] [address] 01/24/2025 9:30 AM EDT Office Visit Hematology/Oncology [facility] [address] [place] [phone] Logan Mancia MD [address] [facility] [place] [address] 01/24/2025 10:00 AM EDT Hem/Onc Treatment Hematology/Oncology Treatment, [address] [place] [phone] Desirae, Chair 11 Hem Onc [address] [place] [place] [address] 01/25/2025 9:15 AM EDT Hem/Onc Treatment Hematology/Oncology Treatment, [address] [place] [address] Desirae, Chair [address] Hem On[address] [place] [address] 01/26/2025 10:30 AM EDT Hem/Onc Treatment Hematology/Oncology Treatment, [place] [address] [facility] [place] [phone] Desirae, Chair 11 Hem Onc [address] [place] [address] 01/28/2025 10:20 AM EDT Office Visit Family Medicine [address] [phone] Rafael Ochoa CRNP [address] [place] [address] [place] [address] 02/15/2025 10:40 AM EDT Office Visit Neurology [address] [place] [phone] Corey Smiley MD [address] [place], [place] [phone] 09/02/2025 10:00 AM EST Office Visit Family [address] [phone] Marge Leal MD [address] [place] [address] [place] [address] Scheduled Procedures Name Priority Associated Diagnoses Date/Ti [...] COPD 11/17/2025 11/17/2024 CKD PHOS USE SMARTSET 90594 11/20/202510/31, 11/19/2024, 11/18/2024, Additional history exists CKD HGB USE SMARTSET 77624 01/03/202601/03, 01/03/2025, 12/31/2024, Additional history exists Colonoscopy 10/07/2026 10/07/2023, 0 05/2024, 07/25/2023, Additional history exists Colorectal Cancer Screening 10/07/2026 DTap/Tdap Vaccines (3 - Td or Tdap) 09/20/2029 09/20/2019, 01/23/2009 Pneumococcal Vaccine: 50+ Years Completed 07/27/2018, 09/24/2016, 01/23/2009 VITAMIN D LEVEL ONCE IN A LIFETIME-USE SMARTSET# 42791 Completed 06/27/2023, 03/01/2019, 03/26/2017, Additional history exists [...] this encounter Medical Devices Implanted Type Area Air Route Controller Device Identifier Shelf Expiration Date Model / Serial / Lot Graft Allomax 1.0 6x16cm - [id number] - [id number] Implanted:Qty : 1 on 07/03/2015 by Jere Souza MD at OR [facility] Right: Breast CR BARD : DAVOL 08/28/2019 [id number] / [id number] / [id number] Graft Allomax 1.0 6x16cm - [id number] - [id number] Implanted:Qty : 1 on 07/03/2015 by Jere Souza MD at OR [facility] Left: Breast CR BARD : DAVOL 04/28/2017 [id number] / [id number] / [id number] Implant Breast Li+ 350-2251bc - [id number] Implanted:Qty : 1 on 12/28/2015 by Jere Souza MD at OR [facility] Left: Breast MENTOR DANYELLE 03/28/2016 [id number] / / [id number] Implant Breast Li+ 350-2251bc - [id number] Implanted:Qty : 1 on 12/28/2015 by Jere Souza MD at OR [facility] Right: Breast MENTOR DANYELLE 03/28/2016 [id number] / / [id number] Port Implant W8f Poly Cath - [id number] Implanted:Qty : 1 on 01/06/2025 by Renny Titus MD at OR [facility] BARD : PERIPHERAL VASCULAR [id number] 11/26/2025 [id number] / / [id number] documented as of this encounter Procedures Procedure Name Priority Date/Time Associated Diagnosis Comments IR INTERVENTIONAL RADIOLOGY PROCEDURE IN OR Routine 01/06/2025 1:58 PM EDT documented in this encounter Results * IR INTERVENTIONAL RADIOLOGY PROCEDURE IN OR (01/06/2025 1:58 PM EDT) 01/06/2025 2:06 PM EDT [facility] - 01/06/2025 2:04 PM EDT IMPRESSION: Successful placement of a chest power injectable medical port. Narrative [facility] - 01/06/2025 2:04 PM EDT PROCEDURE: chest medical port placement 01/06/25 INDICATION: central intravenous access needed for chemotherapy. Breast CA ATTENDING (OPERATING PHYSICIAN): Ariela CONSENT: After a detailed discussion of the procedure, risks, benefits and alternative treatment options, informed consent was obtained. TIME OUT: A time out procedure was performed. The patient's identification was verified. Informed consent with agreement of procedure, site and position was obtained. All necessary equipment was available prior to procedure. CONTRAST: No contrast was administered. COMPLICATIONS: None. ANESTHESIA: Local lidocaine. IV Versed. IV Fentanyl. SEDATION TIME: Start to end: [id number]. Qualified nurse sedation observer KB Zimmer. MEDICATIONS: See [facility] PROCEDURE DESCRIPTION: The right neck and chest were prepped and draped in the usual sterile fashion. After local anesthesia, a small incision was made at the site of venous access in the neck. Using real-time ultrasound guidance, the internal jugular vein was punctured with a micro puncture needle. Digital ultrasound images were acquired and digitally archived. A wire and sheath were used to secure access to the internal jugular vein access using fluoroscopic guidance. A second incision was made in the upper chest and a pocket was created. The medical port catheter was tunneled from the pocket to the venotomy site. A peel-away sheath was placed through the venotomy over the wire and the catheter was advanced through a peel-away sheath and positioned under fluoroscopic guidance. The catheter was then measured to 26 cm, cut, and attached to a power injectable port. Once the medical port and catheter were in satisfactory position, the medical port was accessed, had appropriate blood return, and easily flushed and was locked with dilute heparin. The incision was then closed in layers with absorbable sutures and tissue adhesive. The venotomy site was closed with absorbable suture and tissue adhesive. I personally performed the procedure. FINDINGS: Ultrasound shows an anechoic and compressible right internal jugular vein. The medical port is in the upper chest with the catheter tip at the right atrium Procedure Note Renny Titus MD - 01/06/2025 PROCEDURE: chest medical port placement 01/06/25 INDICATION: central intravenous access needed for chemotherapy. BreastCA ATTENDING (OPERATING PHYSICIAN): Ariela CONSENT: After a detailed discussion of the procedure, risks, benefits andalternative treatment options, informed consent was obtained. TIME OUT: A time out procedure was performed. The patient's identificationwas verified. Informed consent with agreement of procedure, site andposition was obtained. All necessary equipment was available prior toprocedure. CONTRAST: No contrast was administered. COMPLICATIONS: None. ANESTHESIA: Local lidocaine. IV Versed. IV Fentanyl. SEDATION TIME: Start to end: [id number]. Qualified nurse sedation KB Moy. MEDICATIONS: See MAR PROCEDURE DESCRIPTION: The right neck and chest were prepped and draped inthe usual sterile fashion. After local anesthesia, a small incision wasmade at the site of venous access in the neck. Using real-timeultrasound guidance, the internal jugular vein was punctured with a micropuncture needle. Digital ultrasound images were acquired and digitallyarchived. A wire and sheath were used to secure access to the internaljugular vein access using fluoroscopic guidance. A second incision was made in the upper chest and a pocket was created.The medical port catheter was tunneled from the pocket to the venotomysite. A peel-away sheath was placed through the venotomy over the wire andthe catheter was advanced through a peel-away sheath and positioned underfluoroscopic guidance. The catheter was then measured to 26 cm, cut, andattached to a power injectable port. Once the medical port and catheter were in satisfactory position, themedical port was accessed, had appropriate blood return, and easilyflushed and was locked with dilute heparin. The incision was then closedin layers with absorbable sutures and tissue adhesive. The venotomy sitewas closed with absorbable suture and tissue adhesive. I personally performed the procedure. FINDINGS: Ultrasound shows an anechoic and compressible right internal jugular vein.The medical port is in the upper chest with the catheter tip at the rightatrium IMPRESSION IMPRESSION: Successful placement of a chest power injectable medical port. Renny Titus MD RAD SPECIAL PROCEDURES Final Res ult [facility] documented in this encounter Administered Medications Inactive Administered Medications - up to 3 most recent administrations Medication Order MAR Action Action Date Dose Rate Site ceFAZolin in dextrose (Ancef) ivpb 2 g 2 g, IV Piggyback, ONCE, 1 dose, On Gia 01/06/25 at 1400, Intra-Op New Bag 01/06/2025 1:38 PM EDT 2 g 100 mL/hr chlorhexidine gluconate cloth 2 % pad 1 Pad 1 Pad, External, ONCE, On Gia 01/06/25 at 1200, For 1 dose, As applicable by procedure for patients 2 months and older unless contraindicated., Pre-Op Given 01/06/2025 11:40 AM EDT 1 Pad Isolyte-S pH 7.4 infusion Intravenous, at 25 mL/hr, All Patients EXCEPT Dialysis patients Plasma-LYTE 148, isolyte-S, and isolyte-S pH 7.4 are considered equivalent - including for MAR barcode scanning., CONTINUOUS, Starting on Gia 01/06/25 at 1200, Until Gia 01/06/25 at 1504, Pre-Op New Bag 01/06/2025 11:39 AM EDT 25 mL/hr 25 mL/hr ondansetron (Zofran) inj 4 mg 4 mg, IV Push, ONCE, On Gia 01/06/25 at 1200, For 1 dose, Pre-Op Given 01/06/2025 11:39 AM EDT 4 mg Povidone-Iodine nasal swab 1 Swab 1 Swab, Nasal, ONCE, On Gia 01/06/25 at 1200, For 1 dose, Administer as per wallet assembler instructions unless contraindicated., Pre-Op Given 01/06/2025 11:40 AM EDT 1 Swab documented in this encounter Active and Recently Administered Medications Times are shown in EDT. Scheduled Medication Order 01/04/2025 01/05/2025 01/06/2025 ceFAZolin in dextrose (Ancef) ivpb 2 g (COMPLETED) 2 g, IV Piggyback, ONCE, 1 dose, On Gia 01/06/25 at 1400, Intra-Op 1338 (New Bag - Prov ider: Praveena Jackson RN) chlorhexidine gluconate cloth 2 % pad 1 Pad (COMPLETED) 1 Pad, External, ONCE, On Gia 01/06/25 at 1200, For 1 dose, As applicable by procedure for patients 2 months and older unless contraindicated., Pre-Op 1140 (Given - Provid er: Guerline Santos RN) ondansetron (Zofran) inj 4 mg (COMPLETED) 4 mg, IV Push, ONCE, On Gia 01/06/25 at 1200, For 1 dose, Pre-Op 1139 (Given - Provid er: Guerline Santos RN) Povidone-Iodine nasal swab 1 Swab (COMPLETED) 1 Swab, Nasal, ONCE, On Gia 01/06/25 at 1200, For 1 dose, Administer as per wallet assembler instructions unless contraindicated., Pre-Op 1140 (Given - Provid er: Guerline Santos RN) Continuous Medication Order 01/04/2025 01/05/2025 01/06/2025 Isolyte-S pH 7.4 infusion Intravenous, at 25 mL/hr, All Patients EXCEPT Dialysis patients Plasma-LYTE 148, isolyte-S, and isolyte-S pH 7.4 are considered equivalent - including for MAR barcode scanning., CONTINUOUS, Starting on Gia 01/06/25 at 1200, Until Gia 01/06/25 at 1504, Pre-Op 1139 (New Bag - Prov ider: Guerline Santos RN) PRN Medication Order 01/04/2025 01/05/2025 01/06/2025 buffered lidocaine 1 % inj (CANCELED) ONCE PRN INTRA PROCEDURE, Starting on Gia 01/06/25 at 1355, Until Gia 01/06/25 at 1358, Intra-Op 1355 (Given - Provid er: Renny Titus MD) fentaNYL (PF) inj (CANCELED) ONCE PRN INTRA PROCEDURE, Starting on Gia 01/06/25 at 1339, Until Gia 4 at 1358, Intra-Op 1339 (Given - Provid er: Praveena Jackson RN) hEParin 100 UNIT/ML Lock Flush inj (CANCELED) ONCE PRN INTRA PROCEDURE, Starting on Gia 01/06/25 at 1355, Until Gia 425 at 1358, Intra-Op 1355 (Given - Provid er: Renny Titus MD) midazolam (Versed) 2 MG/2ML inj (CANCELED) ONCE PRN INTRA PROCEDURE, Starting on Gia 01/06/25 at 1339, Until Gia 4 at 1358, Intra-Op 1339 (Given - Provid er: Praveena Jackson RN) documented in this encounter Advance Directives * [...] Directives occurred with: Not Discussed Care Teams Manager Business Information Relationship Specialty Start Date End Date Marge Leal MD [address] [place] [address] [place] [phone] PCP - General Family Medicine 12/31/24 documented as of this encounter
--- OUTSIDE RECORDS SUMMARY | 2025-01-12 17:58 | External Medical Summary | Summary of Care ---
Author Name Unknown Organization [facility] Address [address] [facility] [place] [address] Phone [phone] Care Team Providers Care Statistical Developer Name Role Phone Marge Leal MD Primary Care Provide r Reason for Visit * Reason Onset Date Comments Order Request 01/03/2025 ac Encounter Details Date Type Department Care Team (Late st Contact Info) Description 01/03/2025 Telephone Hematology/Oncology Treatment, [place] [address] [place] [address] Logan Mancia MD [address] [place] [address] Order Request (ac) Allergies Active Allergy Reactions [...] PM EDT Referral entered for fulphila at [facility]. Spoke to Aleshia- patient is to arrive at noon tomorrow for 1pm procedure. Likely will be discharged between 3-4. [facility] scheduling: can you please add patient for [...] Patient is scheduled for port placement at [facility]- built day in for pegfilgrastim at [facility] withcycle 1 only. Precert: patient will need fulphila 01/06/25 at [facility] (built this as a separate plan), then will get it at after that (starting 01/27/25). Please obtain auth. Thanks! * Telephone Encounter - Elysia Tryo RN - 01/03/2025 1:[address] Mancia, give pegfilgrastim on day [address] Mancia: please place order- thanks! documented in this encounter Plan of Treatment Upcoming Encounters Date Type Department Care Team (Latest Contact Info) Description 01/06/2025 12:29 PM EDT Hospital Encounter OR [facility], Operating Room, [facility] - 4th Floor [address] [place] [phone] Renny Titus MD [address] [place], [place] [address] [address] 01/06/2025 12:29 PM EDT - 01/06/2025 1:28 PM EDT Surgery OR [facility], Operating Room, [facility] - 4th Floor [address] [place] [phone] Renny Titus MD [address] [place] [address] [place] [address] INSERT TUNNELED CENTRAL VENOUS ACCESS WITH SUBQ PORT 01/06/2025 3:30 PM EDT Immunization/Inject ion Hematology/Oncolog y Treatment, [address] [place] [address] [facility], Chair7 Hem Onc [address] [place] [address] [place] [address] 01/24/2025 8:50 AM EDT Laboratory Laboratory [facility] [place] [address] [place] [phone] Desirae, Lab Sc[address]ery [address] [facility] [place] [address] 01/24/2025 9:30 AM EDT Office Visit Hematology/Oncolog y [facility] [place] [address] [place], [place] [phone] Logan Mancia MD [address] [place] [address] 01/24/2025 10:00 AM EDT Hem/Onc Treatment Hematology/Oncolog y Treatment, [address], [place] [phone] [place], Chair 11 Hem Onc Scenery 200 [place] [address] 01/25/2025 9:15 AM EDT Hem/Onc Treatment Hematology/Oncolog y Treatment, [address], [place] [phone] Desirae, Chair 10 Hem Onc Scenery 200 [facility] [place] [address] 01/26/2025 10:30 AM EDT Hem/Onc Treatment Hematology/Oncolog y Treatment, [address], [place] [phone] Desirae, Chair 11 Hem Onc Scenery 200 [facility] [place], [place] [address] 01/28/2025 10:20 AM EDT Office Visit Family Medicine [address] [place] [phone] Rafael Ochoa [address] [place] [address] 02/15/2025 10:40 AM EDT Office Visit Neurology [facility] [place] [address] [facility] [place] [address] Corey Smiley MD [address] [place] [address] 09/02/2025 10:00 AM EST Office Visit Family Medicine [address] [place] [phone] Marge Leal MD [address] [place] [address] [place] [address] Scheduled Procedures Name Priority Associated Diagnoses Date/Ti [...] COPD 11/17/2025 11/17/2024 CKD PHOS USE SMARTSET 32113 11/20/202510/31, 11/19/2024, 11/18/2024, Additional history exists CKD HGB USE SMARTSET 80902 01/03/202601/03, 01/03/2025, 12/31/2024, Additional history exists Colonoscopy 10/07/2026 10/07/2023, 05/2024, 07/25/2023, Additional history exists Colorectal Cancer Screening 10/07/2026 DTap/Tdap Vaccines (3 - Td or Tdap) 09/20/2029 09/20/2019, 01/23/2009 Pneumococcal Vaccine: 50+ Years Completed 07/27/2018, 09/24/2016, 01/23/2009 VITAMIN D LEVEL ONCE IN A LIFETIME-USE SMARTSET# 04692 Completed 06/27/2023, 03/01/2019, 03/26/2017, Additional history exists [...] this encounter Medical Devices Implanted Type Area Bricklayer Sewer Device Identifier Shelf Expiration Date Model / Serial / Lot Graft Allomax 1.0 6x16cm - [id number] - [id number] Implanted:Qty: 1 on 07/03/2015 by Jere Souza MD at OR [facility] Right: Breast CR BARD : DAVOL 08/28/2019 [id number] / [id number] / [id number] Graft Allomax 1.0 6x16cm - [id number] - [id number] Implanted:Qty: 1 on 07/03/2015 by Jere Souza MD at OR [facility] Left: Breast CR BARD : DAVOL 04/28/2017 [id number] / [id number] / [id number] Implant Breast Il+ 350-2251bc - [id number] Implanted:Qty: 1 on 12/28/2015 by Jere Souza MD at OR [facility] Left: Breast MENTOR DANYELLE 03/28/2016 350-2251BC / / [id number] Implant Breast Li+ 350-2251bc - [id number] Implanted:Qty: 1 on 12/28/2015 by Jere Souza MD at [facility] Right: Breast MENTOR DANYELLE 03/28/2016 [id number] / / [id number] documented as of this encounter Visit Diagnoses [...] Directives occurred with: Not Discussed Care Teams Statistical Developer Relationship Specialty Start Date End Date Marge Leal MD [address] [place] [address] [place] [address] PCP - General Family Medicine 12/31/24 documented as of this encounter
--- OUTSIDE RECORDS SUMMARY | 2025-01-12 17:58 | External Medical Summary | Summary of Care ---
Author Name Unknown Organization [facility] Address [address] [facility] [place] [address] Phone [phone] Care Team Providers Care Utility Sales And Service Manager Name Role Phone Marge Leal MD Primary Care Provide r Reason for Visit * Reason Onset Date Comments Follow Up 01/07/2025 Carbo/Etop Encounter Details Date Type Department Care Team (Late st Contact Info) Description 01/07/2025 Telephone Hematology/Oncology [facility] [place] [address] [facility] [place] [phone] Logan Mancia MD [address] [place] [address] Follow Up (Carbo/Etop) Allergies Active Allergy Reactions [...] encounter Miscellaneous Notes * Telephone Encounter - Ashok Larsen RN - 01/07/2025 2:54 PM EDT HEMATOLOGY/ONCOLOGY INITIAL CHEMO FOLLOW-UP Called patient to follow up with her s/p 1st cycle of Carbo/Etop. Pt also had port placed yesterdayin [place]. No answer, unable to leave VM on machine as box was full. documented in this encounter Plan of Treatment Upcoming Encounters Date Type Department Care Team (Late st Contact Info) Description 01/24/2025 8:50 AM EDT Laboratory Laboratory [facility] [place] [address] [place] [phone] Desirae, Lab [facility] [address] [place] [address] 01/24/2025 9:30 AM EDT Office Visit Hematology/Oncology [facility] [place] [address] [place] [phone] Logan Mancia MD [address] [place] [address] 01/24/2025 10:00 AM EDT Hem/Onc Treatment Hematology/Oncology [address], [address] [phone] [place], Chair 11 Hem Onc [facility] [address] [place] [address] 01/25/2025 9:15 AM EDT Hem/Onc Treatment Hematology/Oncology [address], [address] [phone] [place], Chair 10 Hem Onc Scenery [address] [place] [address] 01/26/2025 10:30 AM EDT Hem/Onc Treatment [facility]cology Treatment, [place] [facility] [phone] [place], Chair 11 Hem Onc Scenery [address] [place] [address] 01/28/2025 10:20 AM EDT Office Visit Family [address] [phone] Rafael Ochoa CRNP [address] [place] [address] [place] [address] 02/15/2025 10:40 AM EDT Office Visit Neurology [facility] [place] [address] [place] [address] Corey Smiley MD [address] [place] [address] 09/02/2025 10:00 AM EST Office Visit Family [address] [phone] Marge Leal MD [address] [place] [address] [place] [address] Scheduled Procedures Name Priority Associated Diagnoses Date/Ti me COLONOSCOPY FLEXIBLE PROXIMA L DIAGNOSTIC Recall Constipation, unspecified constipation type Health Maintenance Due Date Last Done Comments DISCUSS TOBACCO CESSATION (REFER TO SMARTSET #7461) 1950 Depression Screening 1962 Alpha-1 Antitrypsin 1969 [...] COPD 11/17/2025 11/17/2024 CKD PHOS USE SMARTSET 83234 11/20/202510/31, 11/19/2024, 11/18/2024, Additional history exists CKD HGB USE SMARTSET 28994 01/03/202601/03, 01/03/2025, 12/31/2024, Additional history exists Colonoscopy 10/07/2026 10/07/2023, 05/2024, 07/25/2023, Additional history exists Colorectal Cancer Screening 10/07/2026 DTap/Tdap Vaccines (3 - Td or Tdap) 09/20/2029 09/20/2019, 01/23/2009 Pneumococcal Vaccine: 50+ Years Completed 07/27/2018, 09/24/2016, 01/23/2009 VITAMIN D LEVEL ONCE IN A LIFETIME-USE SMARTSET# 16709 Completed 06/27/2023, 03/01/2019, 03/26/2017, Additional history exists [...] this encounter Medical Devices Implanted Type Area Geotechnical Intern Device Identifier Shelf Expiration Date Model / Serial / Lot Graft Allomax 1.0 6x16cm - [id number] - [id number] Implanted:Qty : 1 on 07/03/2015 by Jere Souza MD [place] [facility] [place]: Breast CR BARD : DAVOL 08/28/2019 [id number] / [id number] / [id number] Graft Allomax 1.0 6x16cm - [id number] - [id number] Implanted:Qty : 1 on 07/03/2015 by Jere Souza MD at [place] [facility] Left: Breast CR BARD : DAVOL 04/28/2017 [id number] / [id number] / [id number] Implant Breast Li+ 350-2251bc - [id number] Implanted:Qty : 1 on 12/28/2015 by Jere Souza MD [place] [facility] Left: Breast MENTOR DANYELLE 03/28/2016 [id number] / / [id number] Implant Breast Li+ 350-2251bc - [id number] Implanted:Qty : 1 on 12/28/2015 by Jere Souza MD at [place] [facility] Right: Breast MENTOR DANYELLE 03/28/2016 [id number] / / [id number] Port Implant W8f Poly Cath - [id number] Implanted:Qty : 1 on 01/06/2025 by Renny Titus MD at OR [facility] BARD : PERIPHERAL VASCULAR [id number] 11/26/2025 [id number] / / [id number] documented as of this encounter Advance Directives [...] Directives occurred with: Not Discussed Care Teams Utility Sales And Service Manager Relationship Specialty Start Date End Date Marge Leal MD [address] [place] [address] [place] [phone] PCP - General Family Medicine 12/31/24 documented as of this encounter
--- OUTSIDE RECORDS SUMMARY | 2025-01-12 17:58 | External Medical Summary | Summary of Care ---
Author Name Unknown Organization [facility] Address [address] [facility] [address] Phone [phone] Care Team Providers Care Pulmonary Fellow Name Role Phone Marge Leal MD Primary Care Provide r Reason for Visit * Reason Comments Chemotherapy C1/D3 - Etoposide * Episode Based Medications (Routine) - Pending Review Specialty Diagnoses / Procedures Referred By Tj t Referred To Contact Diagnoses 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) Encounter for antineoplastic chemotherapy Procedures IN CARBOPLATIN INJECTION IN FOSAPREPITANT INJECTION IN ETOPOSIDE 10 MG INJ Logan Mancia MD [address] [place] [address] Phone: tel: fax: Hematology/Oncology Treatment, [address] [address] Phone: tel: fax: Referral ID Status Reason Start Date Expiration Date V isits Requested Visits Authorized [id number] Pending Review 12/29/2024 09/28/2099 99 99 Encounter Details Date Type Department Care Team (Latest Contact Info) Description 01/05/2025 12:15 PM EDT Hem/Onc Treatment Hematology/Oncolog y Treatment, [address] [address] [place], Chair 8 Hem Onc Scenery [address] [place] [address] Chemotherapy induced nausea and vomiting*; Dehydration; Primary [...] chemo now - Etoposide released. * Sally Nolasoc RN - 01/05/2025 3:41 PM EDT IVP [...] 01/06/2025 12:29 PM EDT Hospital Encounter OR [facility], Operating Room, [facility] - 4th Floor [address] [place] [address] Renny Titus MD [address] [place], [place] [address] [address] 01/06/2025 12:29 PM EDT - 01/06/2025 1:28 PM EDT Surgery OR [facility], Operating Room, [facility] - 4th Floor [address] [place] [address] Renny Titus MD [address] [place], [place] [address] [address] INSERT TUNNELED CENTRAL VENOUS ACCESS WITH SUBQ PORT 01/06/2025 3:30 PM EDT Immunization/Inject ion Hematology/Oncolog y Treatment, [address] [address] [facility], [facility] Hem Onc [address] [place], [place] [address] [address] 01/24/2025 8:50 AM EDT Laboratory Laboratory [place] [address] [place] [phone] Desirae Lab Scenery [address] [place] [address] 01/24/2025 9:30 AM EDT Office Visit Hematology/Oncolog y [place] [address] [place] [phone] Logan Mancia MD [address] [place] [address] 01/24/2025 10:00 AM EDT Hem/Onc Treatment Hematology/Oncolog y Treatment, [place] 200 [facility], [place] [phone] [place], Chair 11 Hem Onc Scenery 200 [facility] [place] [address] 01/25/2025 9:15 AM EDT Hem/Onc Treatment Hematology/Oncolog y Treatment, [address], [place] [phone] [place], Chair 10 Hem Onc Scenery 200 [facility] [place] [address] 01/26/2025 10:30 AM EDT Hem/Onc Treatment Hematology/Oncolog y Treatment, [address], [place] [phone] Des[place]ae, Chair 11 Hem Onc Scenery 200 [facility] [place] [address] 01/28/2025 10:20 AM EDT Office Visit Family [address] [phone] Rafael Ochoa CRNP [address] [place] [address] [place] [address] 02/15/2025 10:40 AM EDT Office Visit Neurology [facility] [place] 200 [facility] [place] [address] Corey Smiley MD [address] [place], [place] [address] 09/02/2025 10:00 AM EST Office Visit Family [address] [phone] Marge Leal MD [address] [place] [address] [place] [address] Scheduled Procedures Name Priority Associated Diagnoses Date/Ti me INSERT TUNNELED CENTRAL VENOUS ACCESS WITH SUBQ PORT Malignant neoplasm of lung, unspecified laterality, unspecified part of lung (HCC) 01/06/2025 12:29 PM EDT COLONOSCOPY FLEXIBLE PROXIMAL DIAGNOSTIC Recall Constipation, unspecified constipation type Health Maintenance Due Date Last Done Comments DISCUSS TOBACCO CESSATION (REFER TO SMARTSET #0753) 1950 Depression Screening 1962 Alpha-1 Antitrypsin 1969 [...] COPD 11/17/2025 11/17/2024 CKD PHOS USE SMARTSET 57852 11/20/202510/31, 11/19/2024, 11/18/2024, Additional history exists CKD HGB USE SMARTSET 13593 01/03/202601/03, 01/03/2025, 12/31/2024, Additional history exists Colonoscopy 10/07/2026 10/07/2023, 05/2024, 07/25/2023, Additional history exists Colorectal Cancer Screening 10/07/2026 DTap/Tdap Vaccines (3 - Td or Tdap) 09/20/2029 09/20/2019, 01/23/2009 Pneumococcal Vaccine: 50+ Years Completed 07/27/2018, 09/24/2016, 01/23/2009 VITAMIN D LEVEL ONCE IN A LIFETIME-USE SMARTSET# 79356 Completed 06/27/2023, 03/01/2019, 03/26/2017, Additional history exists [...] this encounter Medical Devices Implanted Type Area Reiki Practitioner Device Identifier Shelf Expiration Date Model / Serial / Lot Graft Allomax 1.0 6x16cm - [id number] - [id number] Implanted:Qty: 1 on 07/03/2015 by Jere Souza MD at [place] [facility] [place]: Breast CR BARD : DAVOL 08/28/2019 [id number] / [id number] / [id number] Graft Allomax 1.0 6x16cm - [id number] - [id number] Implanted:Qty: 1 on 07/03/2015 by Jere Souza MD at [place] [facility] Left: Breast CR BARD : DAVOL 04/28/2017 [id number] / [id number] / [id number] Implant Breast Li+ 350-2251bc - [id number] Implanted:Qty: 1 on 12/28/2015 by Jere Souza MD at [place] [facility] Left: Breast MENTOR DANYELLE 03/28/2016 350-2251BC / / [id number] Implant Breast Li+ 350-2251bc - [id number] Implanted:Qty: 1 on 12/28/2015 by Jere Souza MD at OR [facility] Right: Breast MENTOR DANYELLE 03/28/2016 [id number] / / [id number] documented as of this encounter Visit Diagnoses [...] Directives occurred with: Not Discussed Care Teams Pulmonary Fellow Relationship Specialty Start Date End Date Marge Leal MD [address] [place] [address] [place] [address] PCP - General Family Medicine 12/31/24 documented as of this encounter
--- OUTSIDE RECORDS SUMMARY | 2025-01-12 17:58 | External Medical Summary | Summary of Care ---
Author Name Unknown Organization [facility] Address [address] [facility] [place] [address] Phone [phone] Care Team Providers Care Mold Repairer Name Role Phone Marge Leal MD Primary Care Provide r Reason for Visit * Reason Comments Treatment Fulphila * Auth/Cert Specialty Diagnoses / Procedures Referred By Contney t Referred To Contact Diagnoses Malignant neoplasm of lung, unspecified laterality, unspecified part of lung (HCC) Malignant neoplasm of lung, unspecified laterality, unspecified part of lung (HCC) [C34.90] Procedures INSER TUNN ACC DEV;5 YRS/OLDER INSERT TUNNELED CENTRAL VENOUS ACCESS WITH SUBQ PORT Renny Titus MD [address] [address] Phone: tel: fax: OR [facility], Operating Room, [facility] - 4th Floor [address] [place] [address] Phone: tel: Referral ID Status Reason Start Date Expiration Date Visits Re quested Visits Authorized [id number] [phone] Encounter Details Date Type Department Care Team (Late st Contact Info) Description 01/06/2025 3:30 PM EDT Immunization/ Injection Hematology/Oncology Treatment, [facility] [address] [address] [facility], Chair7 Hem Onc [address] [place] [address] Prevention of chemotherapy-induced neutropenia*; 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); Encounter for antineoplastic chemotherapy Allergies Active Allergy Reactions Criticality Noted Date Comments Varenicline Neuro complications (Please comment) Low 08/23/2019 Vivid nightmares Lisinopril Edema face/lips/tongue High 03/29/2014 Metoprolol Tartrate Edema face/lips/tongue,Other (Please comment) High 05/07/2019 Facial swelling, airway closing up documented as of this encounter (statuses as of 01/06/2025) Medications aspirin 81 MG chewable tabletIndicatio ns:Asymptomatic [...] as of this encounter (statuses as of 01/06/2025) Active Problems Problem Noted Date Diagnosed Date [...] 11/17/2024:Stage IA2(cT1b, cN0, cM0) - Signed by Facktor, Lee A, MD on 11/17/2024 Pathologic stage from 11/24/2024:Stage [...] as of this encounter (statuses as of 01/06/2025) Resolved Problems Problem Noted Date Diagnosed Date [...] as of this encounter (statuses as of 01/06/2025) Immunizations Name Administration Dates Next Due Pneumococcal [...] documented in this encounter Nursing Notes * Jeana Olivera LPN - 01/06/2025 3:16 PM EDT Nance 5 Fulphila injection given R upper arm Patient left IVC by wheelchair. Accompanied by Family. Voiced no complaints. Jeana Olivera LPN 01/06/2025 3:23 PM documented in this encounter Plan of Treatment Upcoming Encounters Date Type Department Care Team (Late st Contact Info) Description 01/24/2025 8:50 AM EDT Laboratory Laboratory [facility] [place] [address] [place] [phone] Juan Manuel [place] [address] [address] [facility] [place] [address] 01/24/2025 9:30 AM EDT Office Visit Hematology/Oncology [facility] [place] [phone] Logan Mancia MD 200 [place] [address] 01/24/2025 10:00 AM EDT Hem/Onc Treatment Hematology/Oncology Treatment, [place] 200 [facility] [place] [phone] Des[place]ae, Chair 11 Hem Onc Scenery 200 [facility] [place] [address] 01/25/2025 9:15 AM EDT Hem/Onc Treatment Hematology/Oncology Treatment, [place] 200 [facility], [place] [phone] Des[place]ae, Chair 10 Hem Onc [facility] 200 [facility] [place] [address] 01/26/2025 10:30 AM EDT Hem/Onc Treatment Hematology/Oncology Treatment, [place] 200 [facility], [place] [phone] Desirae, Chair 11 Hem Onc [facility] 200 [facility] [place] [address] 01/28/2025 10:20 AM EDT Office Visit Family Medicine [address] [phone] Rafael Ochoa CRNP [address] [place] [address] [place] [address] 02/15/2025 10:40 AM EDT Office Visit Neurology [facility] 200 [facility] [place] [phone] Corey Smiley MD [address] [place] [address] 09/02/2025 10:00 AM EST Office Visit Family Medicine [address] [phone] Marge Leal MD [address] [place] [address] [place] [address] Scheduled Procedures Name Priority Associated Diagnoses Date/Ti me INSERT TUNNELED CENTRAL VENOUS ACCESS WITH SUBQ PORT Malignant neoplasm of lung, unspecified laterality, unspecified part of lung (HCC) 01/06/2025 1:23 PM EDT COLONOSCOPY FLEXIBLE PROXIMAL DIAGNOSTIC Recall Constipation, unspecified constipation type Health Maintenance Due Date Last Done Comments DISCUSS TOBACCO CESSATION (REFER TO SMARTSET #6847) 1950 Depression Screening 1962 Alpha-1 Antitrypsin 1969 [...] COPD 11/17/2025 11/17/2024 CKD PHOS USE SMARTSET 37872 11/20/202510/31, 11/19/2024, 11/18/2024, Additional history exists CKD HGB USE SMARTSET 56751 01/03/202601/03, 01/03/2025, 12/31/2024, Additional history exists Colonoscopy 10/07/2026 10/07/2023, 05/2024, 07/25/2023, Additional history exists Colorectal Cancer Screening 10/07/2026 DTap/Tdap Vaccines (3 - Td or Tdap) 09/20/2029 09/20/2019, 01/23/2009 Pneumococcal Vaccine: 50+ Years Completed 07/27/2018, 09/24/2016, 01/23/2009 VITAMIN D LEVEL ONCE IN A LIFETIME-USE SMARTSET# 22472 Completed 06/27/2023, 03/01/2019, 03/26/2017, Additional history exists [...] this encounter Medical Devices Implanted Type Area Regulatory Product Manager Device Identifier Shelf Expiration Date Model / Serial / Lot Graft Allomax 1.0 6x16cm - [id number] - [id number] Implanted:Qty : 1 on 07/03/2015 by Jere Souza MD at OR [facility] Right: Breast CR BARD : DAVOL 08/28/2019 [id number] / [id number] / [id number] Graft Allomax 1.0 6x16cm - [id number] - [id number] Implanted:Qty : 1 on 07/03/2015 by Jere Souza MD at OR [facility] Left: Breast CR BARD : DAVOL 04/28/2017 [id number] / [id number] / [id number] Implant Breast Li+ 350-2251bc - [id number] Implanted:Qty : 1 on 12/28/2015 by Jere Souza MD at [facility] Left: Breast MENTOR DANYELLE 03/28/2016 350-2251BC / / [id number] Implant Breast Li+ 350-2251bc - [id number] Implanted:Qty : 1 on 12/28/2015 by Jere Souza MD at OR [facility] Right: Breast MENTOR DANYELLE 03/28/2016 350-2251BC / / [id number] Port Implant W8f Poly Cath - [id number] Implanted:Qty : 1 on 01/06/2025 by Renny Titus MD at OR [facility] CR BARD : PERIPHERAL VASCULAR [id number] 11/26/2025 [id number] / / [id number] documented as of this encounter Visit Diagnoses Diagnosis Prevention of chemotherapy-induced neutropenia- Primary 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) Encounter for antineoplastic chemotherapy documented in this encounter Administered Medications Inactive Administered Medications - up to 3 most recent administrations Medication Order MAR Action Action Date Dose Rate Site Pegfilgrastim-jmdb (Fulphila) inj 6 mg 6 mg, Subcutaneous, ONCE, On Gia 01/06/25 at 1600, For 1 doseIndications:Prevention of chemotherapy-induced neutropenia,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),Encounter for antineoplastic chemotherapy Given 01/06/2025 3:17 PM EDT 6 mg Arm Right Upper documented in this encounter Advance Directives * [...] Directives occurred with: Not Discussed Care Teams Mold Repairer Relationship Specialty Start Date End Date Marge Leal MD [address] [place] [address] [place] [address] PCP - General Family Medicine 12/31/24 documented as of this encounter
--- OUTSIDE RECORDS SUMMARY | 2025-01-12 17:58 | External Medical Summary | Summary of Care ---
Author Name Unknown Organization [facility] Address [address] [facility] [place] [address] Phone [phone] Care Team Providers Care Mainframe Programmer Name Role Phone Marge Leal MD Primary Care Provide r Reason for Visit * Reason Onset Date Comments Order Request 01/03/2025 ac Encounter Details Date Type Department Care Team (Late st Contact Info) Description 01/03/2025 Telephone Hematology/Oncology Treatment, [place] [address] [place] [address] Logan Mancia MD 200 [place] [address] Order Request (ac) Allergies Active Allergy Reactions [...] PM EDT Referral entered for fulphila at [facility]. Spoke to Aleshia- patient is to arrive at noon tomorrow for 1pm procedure. Likely will be discharged between 3-4. [facility] scheduling: can you please add patient for [...] Patient is scheduled for port placement at [facility]- built day in for pegfilgrastim at [facility] withcycle 1 only. Precert: patient will need fulphila 01/06/25 at [facility] (built this as a separate plan), then [...] 01/06/2025 12:29 PM EDT Hospital Encounter OR [facility], Operating Room, [facility] - 4th Floor [address] [place] [address] Renny Titus MD [address] [place], [place] [address] [place] [address] 01/06/2025 12:29 PM EDT - 01/06/2025 1:28 PM EDT Surgery OR [facility], Operating Room, [facility] - 4th Floor [address] [place] [address] Renny Titus MD [address] [place] [address] [place] [address] INSERT TUNNELED CENTRAL VENOUS ACCESS WITH SUBQ PORT 01/06/2025 3:30 PM EDT Immunization/Inject ion Hematology/Oncolog y Treatment, [address] [place] [address] [facility], Chair7 Hem Onc [address] [place] [address] [place] [address] 01/24/2025 8:50 AM EDT Laboratory Laboratory Scenery [place] [address] [place] [phone] Des[place]ae, Lab Scenery [address] [facility] [place] [address] 01/24/2025 9:30 AM EDT Office Visit [facility] [place] [address] [place], [place] [phone] Logan Mancia MD [address] [place] [address] 01/24/2025 10:00 AM EDT Hem/Onc Treatment Hematology/Oncolog y Treatment, [address], [place] [phone] [place], Chair 11 Hem Onc Scenery 200 [facility] [place] [address] 01/25/2025 9:15 AM EDT Hem/Onc Treatment Hematology/Oncolog y Treatment, [address], [place] [phone] [place]ae, Chair 10 Hem Onc Scenery 200 [facility] [place] [address] 01/26/2025 10:30 AM EDT Hem/Onc Treatment Hematology/Oncolog y Treatment, [address], [place] [phone] Des[place]ae, Chair 11 Hem Onc Scenery 200 [facility] [place], [place] [address] 01/28/2025 10:20 AM EDT Office Visit Family Medicine [address] [place] [phone] Rafael Ochoa [address] [place] [address] 02/15/2025 10:40 AM EDT Office Visit Neurology [facility] [place] 200 [facility] [place] [address] Corey Smiley MD [address] [place] [address] 09/02/2025 10:00 AM EST Office Visit Family Medicine [address] [place] [phone] Marge Leal MD [address] [place] [address] [place] [address] Scheduled Procedures Name Priority Associated Diagnoses Date/Ti [...] COPD 11/17/2025 11/17/2024 CKD PHOS USE SMARTSET 36358 11/20/202510/31, 11/19/2024, 11/18/2024, Additional history exists CKD HGB USE SMARTSET 24854 01/03/202601/03, 01/03/2025, 12/31/2024, Additional history exists Colonoscopy 10/07/2026 10/07/2023, 05/2024, 07/25/2023, Additional history exists Colorectal Cancer Screening 10/07/2026 DTap/Tdap Vaccines (3 - Td or Tdap) 09/20/2029 09/20/2019, 01/23/2009 Pneumococcal Vaccine: 50+ Years Completed 07/27/2018, 09/24/2016, 01/23/2009 VITAMIN D LEVEL ONCE IN A LIFETIME-USE SMARTSET# 22021 Completed 06/27/2023, 03/01/2019, 03/26/2017, Additional history exists [...] this encounter Medical Devices Implanted Type Area Principal Solutions Architect Device Identifier Shelf Expiration Date Model / Serial / Lot Graft Allomax 1.0 6x16cm - [id number] - [id number] Implanted:Qty: 1 on 07/03/2015 by Jere Souza MD at OR [facility] [place] Right: Breast CR BARD : DAVOL 08/28/2019 [id number] / [id number] / [id number] Graft Allomax 1.0 6x16cm - [id number] - [id number] Implanted:Qty: 1 on 07/03/2015 by Jere Souza MD at OR [facility] [place] Left: Breast CR BARD : DAVOL 04/28/2017 [id number] / [id number] / [id number] Implant Breast Li+ 350-2251bc - [id number] Implanted:Qty: 1 on 12/28/2015 by Jere Souza MD at OR [facility] [place] Left: Breast MENTOR DANYELLE 03/28/2016 350-2251BC / / [id number] Implant Breast Li+ 350-2251bc - [id number] Implanted:Qty: 1 on 12/28/2015 by Jere Souza MD at [facility] Right: Breast MENTOR DANYELLE 03/28/2016 [id number] / / [id number] documented as of this encounter Visit Diagnoses [...] Directives occurred with: Not Discussed Care Teams Mainframe Programmer Relationship Specialty Start Date End Date Marge Leal MD [address] [place] [address] [place] [address] PCP - General Family Medicine 12/31/24 documented as of this encounter
--- OUTSIDE RECORDS SUMMARY | 2025-01-12 17:59 | External Medical Summary | Summary of Care ---
Author Name Unknown Organization [facility] Address [address] [facility] [place] [address] Phone [phone] Care Team Providers Care Customs Patrol Officer Name Role Phone Marge eLal MD Primary Care Provide r Reason for Visit * Reason Onset Date Comments Order Request 01/03/2025 ac Encounter Details Date Type Department Care Team (Late st Contact Info) Description 01/03/2025 Telephone Hematology/Oncology Treatment, [place] [address] [place] [address] Logan Mancia MD 200 [place] [address] Order Request (ac) Allergies Active Allergy Reactions [...] Patient is scheduled for port placement at [facility]- built day in for pegfilgrastim at [facility] withcycle 1 only. Precert: patient will need fulphila 01/06/25 at [facility] (built this as a separate plan), then [...] 01/06/2025 12:29 PM EDT Hospital Encounter OR [facility], Operating Room, [facility] - 4th Floor [address] [place] [address] Renny Titus MD [address] [place] [address] 01/06/2025 12:29 PM EDT - 01/06/2025 1:28 PM EDT Surgery OR [facility], Operating Room, [facility] - 4th Floor [address] [place] [phone] Renny Titus MD [address] [place] [address] INSERT TUNNELED CENTRAL VENOUS ACCESS WITH SUBQ PORT 01/24/2025 8:50 AM EDT Laboratory Laboratory Scenery [place] [address] [place] [address] Desirae, Lab Scenery [address] [place] [address] 01/24/2025 9:30 AM EDT Office Visit Hematology/Oncolog y Scenery Dseirae [place] [address] [place] [address] Logan Mancia MD [address] [place] [address] 01/24/2025 10:00 AM EDT Hem/Onc Treatment Hematology/Oncolog y Treatment, [place] 200 [facility], [place] [phone] Des[place]ae, Chair 11 Hem Onc Scenery [address] [place] [address] 01/25/2025 9:15 AM EDT Hem/Onc Treatment Hematology/Oncolog y Treatment, [place] 200 [facility] [place] [address] Desirae, Chair 10 Hem Onc Scenery [address] [place] [address] 01/26/2025 10:30 AM EDT Hem/Onc Treatment Hematology/Oncolog y Treatment, [place] 200 [facility], [place] [address] Desirae, Chair 11 Hem Onc Scenery [address] [place] [address] 01/28/2025 10:20 AM EDT Office Visit Family Medicine [address] [phone] Rafael Ochoa CRNP [address] [place] [address] [place] [address] 02/15/2025 10:40 AM EDT Office Visit Neurology [facility] [place] 200 [facility] [address] Corey Smiley MD [address] [place] [address] 09/02/2025 10:00 AM EST Office Visit Family Medicine [address] [phone] Marge Leal MD [address] [place] [address] [place] [address] Scheduled Procedures Name Priority Associated Diagnoses Date/Ti [...] COPD 11/17/2025 11/17/2024 CKD PHOS USE SMARTSET 58347 11/20/202510/31, 11/19/2024, 11/18/2024, Additional history exists CKD HGB USE SMARTSET 45089 01/03/202601/03, 01/03/2025, 12/31/2024, Additional history exists Colonoscopy 10/07/2026 10/07/2023, 05/2024, 07/25/2023, Additional history exists Colorectal Cancer Screening 10/07/2026 DTap/Tdap Vaccines (3 - Td or Tdap) 09/20/2029 09/20/2019, 01/23/2009 Pneumococcal Vaccine: 50+ Years Completed 07/27/2018, 09/24/2016, 01/23/2009 VITAMIN D LEVEL ONCE IN A LIFETIME-USE SMARTSET# 00109 Completed 06/27/2023, 03/01/2019, 03/26/2017, Additional history exists [...] this encounter Medical Devices Implanted Type Area Medical Library Assistant Device Identifier Shelf Expiration Date Model / Serial / Lot Graft Allomax 1.0 6x16cm - [id number] - [id number] Implanted:Qty: 1 on 07/03/2015 by Jere Souza MD at OR [facility] Right: Breast CR BARD : DAVOL 08/28/2019 [id number] / [id number] / [id number] Graft Allomax 1.0 6x16cm - [id number] - [id number] Implanted:Qty: 1 on 07/03/2015 by Jere Souza MD at OR [facility] Left: Breast CR BARD : DAVOL 04/28/2017 [id number] / [id number] / [id number] Implant Breast Li+ 350-2251bc - [id number] Implanted:Qty: 1 on 12/28/2015 by Jere Souza MD at OR [facility] Left: Breast MENTOR DANYELLE 03/28/2016 350-2251BC / / [id number] Implant Breast Li+ 350-2251bc - [id number] Implanted:Qty: 1 on 12/28/2015 by Jere Souza MD at OR [facility] Right: Breast MENTOR DANYELLE 03/28/2016 [id number] / / [id number] documented as of this encounter Visit Diagnoses [...] Directives occurred with: Not Discussed Care Teams Customs Patrol Officer Relationship Specialty Start Date End Date Marge Leal MD [address] [place] [address] [place] [address] PCP - General Family Medicine 12/31/24 documented as of this encounter
--- OUTSIDE RECORDS SUMMARY | 2025-01-12 17:59 | External Medical Summary | Summary of Care ---
Author Name Unknown Organization [facility] Address [address] [facility] [place] [address] Phone [phone] Care Team Providers Care Mounter Name Role Phone Marge Leal MD Primary Care Provide r Reason for Visit * Reason Onset Date Comments Appointment 01/05/2025 Encounter Details Date Type Department Care Team (Late st Contact Info) Description 01/05/2025 Telephone Hematology/Oncology [facility] [place] [address] [facility] [address] Services, Scheduling [address] [place] [address] Appointment Allergies Active Allergy Reactions Criticality Noted Date [...] the morning. with food.. 100 Tab 5 06/11/201 9 Active Vitamin D3 10 MCG (400 [...] Encounter - Elysia Troy RN - 01/05/2025 11:[address] Gavino rosales. * Addendum Note - Lgoan Lilly MD - 01/05/2025 11:15 AM EDTAddended by: LOGAN LILLY on: 01/05/2025 11:15 AM Modules accepted: Orders * Telephone Encounter - Elysia Troy RN - 01/05/2025 11:07 AM EDT Patient presented to office (see nursing note). Reviewed with Dr Lilly. Dr Lilly: please place alteration order "give 1L NSS over 2 hours, 8mg IV decadron, 8mg IV zofran today". Thanks! * Telephone Encounter - Hans Torres OSA - 01/05/2025 10:25 AM EDT Patient son Matthew called in he states the patient is currently at [facility] she has just finished up there and she has a treatment appt at 12:15. Matthew is wondering if there is anyway theydarren just come in now for that treatment because the patient is really not feeling well and he does not think he could get her home and then bring her back out later. He is wondering if it could be okay for him to bring her in now? Matthew stated he will just stop in the office and check he states he is on his way now. You can call Matthew back at [phone] documented in this encounter Plan of Treatment Upcoming Encounters Date Type Department Care Team (Latest Contact Info) Description 01/06/2025 12:29 PM EDT Hospital Encounter OR [facility], Operating Room, [facility] - 4th Floor [address] [address] Renny Titus MD [address] [place] [address] 01/06/2025 12:29 PM EDT - 01/06/2025 1:28 PM EDT Surgery OR [facility], Operating Room, [facility] - 4th Floor [address] [place] [address] Renny Titus MD [address] [place] [address] INSERT TUNNELED CENTRAL VENOUS ACCESS WITH SUBQ PORT 01/24/2025 8:50 AM EDT Laboratory Laboratory [facility] [employer] [address] [place] [phone] Desirae, Lab Scenery [address] [address] 01/24/2025 9:30 AM EDT Office Visit Hematology/Oncolog y [facility] [place] [address] [place] [address] Logan Lilly MD [address] [place] [address] 01/24/2025 10:00 AM EDT Hem/Onc Treatment Hematology/Oncolog y Treatment, [place] 200 [facility] [place] [phone] Desirae, Chair 11 Hem Onc Scenery [address] [address] 01/25/2025 9:15 AM EDT Hem/Onc Treatment Hematology/Oncolog y Treatment, [place] 200 [facility] [place] [address] Desirae, Chair 10 Hem Onc Scenery [address] [address] 01/26/2025 10:30 AM EDT Hem/Onc Treatment Hematology/Oncolog y Treatment, [place] 200 [facility] [place] [phone] Desirae, Chair 11 Hem Onc [facility] 200 [facility] [place] [address] 01/28/2025 10:20 AM EDT Office Visit [address] [phone] Rafael Ochoa CRNP [address] [place] [address] [place] [address] 02/15/2025 10:40 AM EDT Office Visit Neurology [facility] 200 [facility] [place] [address] Corey Smiley MD [address] [place], [place] [phone] 09/02/2025 10:00 AM EST Office Visit [address] [phone] Marge Leal MD [address] [place] [address] [place] [address] Scheduled Procedures Name Priority Associated Diagnoses Date/Ti me INSERT TUNNELED CENTRAL VENOUS ACCESS WITH SUBQ PORT Malignant neoplasm of lung, unspecified laterality, unspecified part of lung (HCC) 01/06/2025 12:29 PM EDT COLONOSCOPY FLEXIBLE PROXIMAL DIAGNOSTIC Recall Constipation, unspecified constipation type Health Maintenance Due Date Last Done Comments DISCUSS TOBACCO CESSATION (REFER TO SMARTSET #3291) 1951 COVID-19 Vaccine (#1) 1956 Depression Screening 1963 Alpha-1 Antitrypsin 1969 Cologuard 1996 Fecal Occult Blood Test 1996 Sigmoidoscopy 1996 *BISPHONATE OR OTHER ACCEPTABLE MEDICATION NEEDED FOR OSTEOPOROSIS (REFER TO SMARTSET #1146) 10/28/2016 Adult Wellness Visit 2017 Zoster Vaccines (2 of 2) 11/15/2019 09/20/2019, 06/29 DXA Scan 09/04/2023 09/04/2021, 10/24/2016 Albumin/Creatinine Ratio 04/13/2025 024, 12/25/2022, 09/03/2021, Additional history exists Influenza Vaccine (FLU shot) (Season Ended) 2025 08/15/2020, 07/07/2019, 07/27/2018, Additional history exists GFR 07/02/2025 12/31/2024, 10/31, 11/19/2024, Additional history exists O2 ASSESSMENT COMPLETED IN PAST YEAR FOR COPD 11/17/2025 11/17/2024 CKD PHOS USE SMARTSET 11007 11/20/202510/31, 11/19/2024, 11/18/2024, Additional history exists CKD HGB USE SMARTSET 29822 01/03/202601/03, 01/03/2025, 12/31/2024, Additional history exists Colonoscopy 10/07/2026 10/07/2023, 05/2024, 07/25/2023, Additional history exists Colorectal Cancer Screening 10/07/2026 DTap/Tdap Vaccines (3 - Td or Tdap) 09/20/2029 09/20/2019, 01/23/2009 Pneumococcal Vaccine: 50+ Years Completed 07/27/2018, 09/24/2016, 01/23/2009 VITAMIN D LEVEL ONCE IN A LIFETIME-USE SMARTSET# 48753 Completed 06/27/2023, 03/01/2019, 03/26/2017, Additional history exists [...] this encounter Medical Devices Implanted Type Area Vp [employer] Device Identifier Shelf Expiration Date Model / Serial / Lot Graft Allomax 1.0 6x16cm - [id number] - [id number] Implanted:Qty: 1 on 07/03/2015 by Jere Souza MD at [place] [facility] [place] Right: Breast CR BARD : DAVOL 08/28/2019 [id number] / [id number] / [id number] Graft Allomax 1.0 6x16cm - [id number] - [id number] Implanted:Qty: 1 on 07/03/2015 by Jere Souza MD at [facility] Left: Breast CR BARD : DAVOL 04/28/2017 [id number] / [id number] / [id number] Implant Breast Li+ 350-2251bc - [id number] Implanted:Qty: 1 on 12/28/2015 by Jere Souza MD at [place] [facility] [place] Left: Breast MENTOR DANYELLE 03/28/2016 350-2251BC / / [id number] Implant Breast Li+ 350-2251bc - [id number] Implanted:Qty: 1 on 12/28/2015 by Jere Souza MD at [place] [facility] [place] Right: Breast MENTOR DANYELLE 03/28/2016 [id number] / / [id number] documented as of this encounter Visit Diagnoses [...] Directives occurred with: Not Discussed Care Teams Mounter Relationship Specialty Start Date End Date Marge Leal MD [address] [place] [address] [place] [address] PCP - General Family Medicine 12/31/24 documented as of this encounter
--- OUTSIDE RECORDS SUMMARY | 2025-01-12 17:59 | External Medical Summary | Summary of Care ---
Author Name Unknown Organization [facility] Address [address] [facility] [place] [address] Phone [phone] Care Team Providers Care Computer Technology Instructor Name Role Phone Marge Leal MD Primary Care Provide r Encounter Details Date Type Department Care Team (Late st Contact Info) Description 01/05/2025 Orders Only Hematology/Oncology [facility] [place] [address] [place] [address] Logan Mancia MD [address] [place] [address] Allergies Active Allergy Reactions Criticality Noted Date [...] Tobacco: Every Day Cigarettes 1.5 61.3 Started: 1963 Passive Smoke Exposure: Current Smokeless Tobacco: Never [...] Brooklyn Mendez RN documented in this encounter Plan of Treatment Upcoming Encounters Date Type Department Care Team (Latest Contact Info) Description 01/06/2025 12:29 PM EDT Hospital Encounter OR [facility], Operating Room, [facility] - 4th Floor [address] [place], [place] [address] [address] Renny Titus MD [address] [place] [address] 01/06/2025 12:29 PM EDT - 01/06/2025 1:28 PM EDT Surgery OR [facility], Operating Room, [facility] - 4th Floor [address] [place] [address] Renny Titus MD [address] [place] [address] INSERT TUNNELED CENTRAL VENOUS ACCESS WITH SUBQ PORT 01/24/2025 8:50 AM EDT Laboratory Laboratory Ines [place] [address] [place] [phone] Desirae, Lab Scenery [address] [place] [address] 01/24/2025 9:30 AM EDT Office Visit Hematology[facility]olog [place] [facility] [place] [address] [place] [phone] Logan Mancia MD [address] [place] [address] 01/24/2025 10:00 AM EDT Hem/Onc Treatment Hematology/Oncolog y Treatment [place] [facility] [phone] Desirae, Chair 11 Hem Onc Scenery [address] [place] [address] 01/25/2025 9:15 AM EDT Hem/Onc Treatment Hematology/Oncolog y Treatment, [place] [address] [place] [phone] Desirae, Chair 10 Hem Onc Scenery [address] [place] [address] 01/26/2025 10:30 AM EDT Hem/Onc Treatment Hematology/Oncolog y Treatment, [place] [facility] [phone] Desirae, Chair [address] [place] [address] 01/28/2025 10:20 AM EDT Office Visit Family Medicine [address] [phone] Rafael Ochoa CRNP [address] [place] [address] [place] [address] 02/15/2025 10:40 AM EDT Office Visit Neurology [facility] 200 [facility] [place] [address] Corey Smiley MD [address] [place], [place] [phone] 09/02/2025 10:00 AM EST Office Visit Family Medicine [address] [phone] Marge Leal MD [address] [place] [address] [place] [address] Scheduled Procedures Name Priority Associated Diagnoses Date/Ti [...] COPD 11/17/2025 11/17/2024 CKD PHOS USE SMARTSET 87650 11/20/202510/31, 11/19/2024, 11/18/2024, Additional history exists CKD HGB USE SMARTSET 60523 01/03/202601/03, 01/03/2025, 12/31/2024, Additional history exists Colonoscopy 10/07/2026 10/07/2023, 05/2024, 07/25/2023, Additional history exists Colorectal Cancer Screening 10/07/2026 DTap/Tdap Vaccines (3 - Td or Tdap) 09/20/2029 09/20/2019, 01/23/2009 Pneumococcal Vaccine: 50+ Years Completed 07/27/2018, 09/24/2016, 01/23/2009 VITAMIN D LEVEL ONCE IN A LIFETIME-USE SMARTSET# 49420 Completed 06/27/2023, 03/01/2019, 03/26/2017, Additional history exists [...] this encounter Medical Devices Implanted Type Area Silviculturist Device Identifier Shelf Expiration Date Model / Serial / Lot Graft Allomax 1.0 6x16cm - [id number] - [id number] Implanted:Qty: 1 on 07/03/2015 by Jere Souza MD at OR [facility] Right: Breast CR BARD : DAVOL 08/28/2019 [id number] / [id number] / [id number] Graft Allomax 1.0 6x16cm - [id number] - [id number] Implanted:Qty: 1 on 07/03/2015 by Jere Souza MD at OR [facility] Left: Breast CR BARD : DAVOL 04/28/2017 [id number] / [id number] / [id number] Implant Breast Li+ 350-2251bc - [id number] Implanted:Qty: 1 on 12/28/2015 by Jere Souza MD at OR [facility] Left: Breast MENTOR DANYELLE 03/28/2016 350-2251BC / / [id number] Implant Breast Li+ 350-2251bc - [id number] Implanted:Qty: 1 on 12/28/2015 by Jere Souza MD at OR [facility] Right: Breast MENTOR DANYELLE 03/28/2016 [id number] / / [id number] documented as of this encounter Advance Directives [...] Directives occurred with: Not Discussed Care Teams Computer Technology Instructor Relationship Specialty Start Date End Date Marge Leal MD [address] [place] [address] [place] [address] PCP - General Family Medicine 12/31/24 documented as of this encounter
--- OUTSIDE RECORDS SUMMARY | 2025-01-12 17:59 | External Medical Summary | Summary of Care ---
Author Name Unknown Organization [facility] Address [address] [facility] [place] [address] Phone [phone] Care Team Providers Care Safety Consultant Name Role Phone Marge Leal MD Primary Care Provide r Reason for Visit * Reason Onset Date Comments Appointment 01/05/2025 Encounter Details Date Type Department Care Team (Late st Contact Info) Description 01/05/2025 Telephone Hematology/Oncology Ines [place] [address] [facility] [address] Services, Scheduling [address] [place] [address] Appointment Allergies Active Allergy Reactions Criticality Noted [...] Dr Gavino rosales. * Addendum Note - Logan Lilly MD - 01/05/2025 11:15 AM EDTAddended [...] he states the patient is currently at [facility] she has just finished up [...] now. You can call Matthew back at [phone] documented in this encounter Plan of Treatment Upcoming Encounters Date Type Department Care Team (Latest Contact Info) Description 01/06/2025 12:29 PM EDT Hospital Encounter OR [facility], Operating Room, [facility] - 4th Floor [address] [address] Renny Titus MD [address] [place] [address] 01/06/2025 12:29 PM EDT - 01/06/2025 1:28 PM EDT Surgery OR GL, Operating Room, [facility] - 4th Floor [address] [place] [address] Renny Titus MD [address] [place] [address] INSERT TUNNELED CENTRAL VENOUS ACCESS WITH SUBQ PORT 01/24/2025 8:50 AM EDT Laboratory [facility] [employer] [address] [place] [phone] Desirae, Lab Scenery [address] [address] 01/24/2025 9:30 AM EDT Office Visit Hematology/Oncolog y [facility] [place] [address] [place] [phone] Logan Lilly MD [address] [place] [address] 01/24/2025 10:00 AM EDT Hem/Onc Treatment Hematology/Oncolog y Treatment, [place] 200 [facility] [place] [address] Desirae, Chair 11 Hem Onc Scenery [address] [address] 01/25/2025 9:15 AM EDT Hem/Onc Treatment Hematology/Oncolog y Treatment, [place] 200 [facility] [address] Desirae, Chair 10 Hem Onc Scenery [address] [address] 01/26/2025 10:30 AM EDT Hem/Onc Treatment Hematology/Oncolog y Treatment, [place] 200 [facility] [place] [phone] Desirae, Chair 11 Hem Onc [facility] 200 [facility] [place] [address] 01/28/2025 10:20 AM EDT Office Visit [address] [phone] Rafael Ochoa CRNP [address] [place] [address] [place] [address] 02/15/2025 10:40 AM EDT Office Visit Neurology [facility] 200 [facility] [place] [address] Corey Smiley MD [address] [place], [place] [phone] 09/02/2025 10:00 AM EST Office Visit [address] [phone] Marge Leal MD [address] [place] [address] [place] [address] Scheduled Procedures Name Priority Associated Diagnoses Date/Ti [...] COPD 11/17/2025 11/17/2024 CKD PHOS USE SMARTSET 91892 11/20/202510/31, 11/19/2024, 11/18/2024, Additional history exists CKD HGB USE SMARTSET 72732 01/03/202601/03, 01/03/2025, 12/31/2024, Additional history exists Colonoscopy 10/07/2026 10/07/2023, 05/2024, 07/25/2023, Additional history exists Colorectal Cancer Screening 10/07/2026 DTap/Tdap Vaccines (3 - Td or Tdap) 09/20/2029 09/20/2019, 01/23/2009 Pneumococcal Vaccine: 50+ Years Completed 07/27/2018, 09/24/2016, 01/23/2009 VITAMIN D LEVEL ONCE IN A LIFETIME-USE SMARTSET# 67019 Completed 06/27/2023, 03/01/2019, 03/26/2017, Additional history exists [...] this encounter Medical Devices Implanted Type Area Count Room Clerk Device Identifier Shelf Expiration Date Model / Serial / Lot Graft Allomax 1.0 6x16cm - [id number] - [id number] Implanted:Qty: 1 on 07/03/2015 by Jere Souza MD at [place] [facility] Right: Breast CR BARD : DAVOL 08/28/2019 [id number] / [id number] / [id number] Graft Allomax 1.0 6x16cm - [id number] - [id number] Implanted:Qty: 1 on 07/03/2015 by Jere Souza MD at [facility] Left: Breast CR BARD : DAVOL 04/28/2017 [id number] / [id number] / [id number] Implant Breast Li+ 350-2251bc - [id number] Implanted:Qty: 1 on 12/28/2015 by Jere Souza MD at OR [facility] Left: Breast MENTOR DANYELLE 03/28/2016 [id number] / / [id number] Implant Breast Li+ 350-2251bc - [id number] Implanted:Qty: 1 on 12/28/2015 by Jere Souza MD at [place] [facility] Right: Breast MENTOR DANYELLE 03/28/2016 [id number] / / [id number] documented as of this encounter Visit Diagnoses [...] Directives occurred with: Not Discussed Care Teams Safety Consultant Relationship Specialty Start Date End Date Marge Leal MD [address] [place] [address] [place] [address] PCP - General Family Medicine 12/31/24 documented as of this encounter
--- OUTSIDE RECORDS SUMMARY | 2025-01-12 17:59 | External Medical Summary | Summary of Care ---
Author Name Unknown Organization [facility] Address [address] [facility] [place] [address] Phone [phone] Care Team Providers Care Divorce Lawyer Name Role Phone Marge Leal MD Primary Care Provide r Reason for Visit * Reason Onset Date Comments Order Request 01/03/2025 ac Encounter Details Date Type Department Care Team (Late st Contact Info) Description 01/03/2025 Telephone Hematology/Oncology Treatment, [place] [address] [place] [address] Logan Mancia MD [address] [place] [address] Order Request (ac) Allergies Active Allergy Reactions [...] PM EDT Referral entered for fulphila at [facility]. Spoke to Aleshia- patient is to arrive at noon tomorrow for 1pm procedure. Likely will be discharged between 3-4. [facility] scheduling: can you please add patient [...] Patient is scheduled for port placement at [facility]- built day in for pegfilgrastim at [facility] withcycle 1 only. Precert: patient will need fulphila 01/06/25 at [facility] (built this as a separate plan), [...] 01/06/2025 12:29 PM EDT Hospital Encounter OR [facility], Operating Room, [facility] - 4th Floor [address] [place] [address] Renny Titus MD [address] [place], [place] [address] [place] [address] 01/06/2025 12:29 PM EDT - 01/06/2025 1:28 PM EDT Surgery OR [facility], Operating Room, [facility] - 4th Floor [address] [place] [address] Renny Titus MD [address] [place] [address] [place] [address] INSERT TUNNELED CENTRAL VENOUS ACCESS WITH SUBQ PORT 01/06/2025 3:30 PM EDT Immunization/Inject ion Hematology/Oncolog y Treatment, [address] [place] [address] [facility], Chair7 Hem Onc [address] [place] [address] [place] [address] 01/24/2025 8:50 AM EDT Laboratory Laboratory Scenery [place] [place] [address] [place] [phone] Desirae, Lab Scenery [address] [facility] [place] [address] 01/24/2025 9:30 AM EDT Office Visit Hematology[facility]olog [facility] [place] [address] [place], [place] [phone] Logna Mancia MD [address] [place] [address] 01/24/2025 10:00 AM EDT Hem/Onc Treatment Hematology/Oncolog y Treatment, [address], [place] [phone] Desirae, Chair 11 Hem Onc Scenery 200 [facility] [place] [address] 01/25/2025 9:15 AM EDT Hem/Onc Treatment Hematology/Oncolog y Treatment, [address], [place] [phone] Desirae, Chair 10 Hem Onc Scenery 200 [facility] [place] [address] 01/26/2025 10:30 AM EDT Hem/Onc Treatment Hematology/Oncolog y Treatment, [address], [place] [phone] Desirae, Chair 11 Hem Onc Scenery 200 [facility] [place], [place] [address] 01/28/2025 10:20 AM EDT Office Visit Family Medicine [address] [place] [phone] Rafael Ochoa [address] [place] [address] 02/15/2025 10:40 AM EDT Office Visit Neurology [facility] [place] 200 [facility] [place] [address] Corey Smiley MD [address] [place] [address] 09/02/2025 10:00 AM EST Office Visit Family Medicine [address] [place] [phone] Marge Leal MD [address] [place] [address] [place] [address] Scheduled Procedures Name Priority Associated Diagnoses Date/Ti [...] COPD 11/17/2025 11/17/2024 CKD PHOS USE SMARTSET 82927 11/20/202510/31, 11/19/2024, 11/18/2024, Additional history exists CKD HGB USE SMARTSET 39784 01/03/202601/03, 01/03/2025, 12/31/2024, Additional history exists Colonoscopy 10/07/2026 10/07/2023, 05/2024, 07/25/2023, Additional history exists Colorectal Cancer Screening 10/07/2026 DTap/Tdap Vaccines (3 - Td or Tdap) 09/20/2029 09/20/2019, 01/23/2009 Pneumococcal Vaccine: 50+ Years Completed 07/27/2018, 09/24/2016, 01/23/2009 VITAMIN D LEVEL ONCE IN A LIFETIME-USE SMARTSET# 52358 Completed 06/27/2023, 03/01/2019, 03/26/2017, Additional history exists [...] this encounter Medical Devices Implanted Type Area Technical Support Director Device Identifier Shelf Expiration Date Model / Serial / Lot Graft Allomax 1.0 6x16cm - [id number] - [id number] Implanted:Qty: 1 on 07/03/2015 by Jere Souza MD at OR [facility] [place] Right: Breast CR BARD : DAVOL 08/28/2019 [id number] / [id number] / [id number] Graft Allomax 1.0 6x16cm - [id number] - [id number] Implanted:Qty: 1 on 07/03/2015 by Jere Souza MD at OR [facility] [place] Left: Breast CR BARD : DAVOL 04/28/2017 [id number] / [id number] / [id number] Implant Breast Li+ 350-2251bc - [id number] Implanted:Qty: 1 on 12/28/2015 by Jere Souza MD at OR [facility] Left: Breast MENTOR DANYELLE 03/28/2016 [id number] / / [id number] Implant Breast Li+ 350-2251bc - [id number] Implanted:Qty: 1 on 12/28/2015 by Jere Souza MD at [facility] Right: Breast MENTOR DANYELLE 03/28/2016 [id number] / / [id number] documented as of this encounter Visit Diagnoses [...] Directives occurred with: Not Discussed Care Teams Divorce Lawyer Relationship Specialty Start Date End Date Marge Leal MD [address] [place] [address] [place] [address] PCP - General Family Medicine 12/31/24 documented as of this encounter
--- OUTSIDE RECORDS SUMMARY | 2025-01-12 17:59 | External Medical Summary | Summary of Care ---
Author Name Unknown Organization [facility] Address [address] [address] Phone [phone] Care Team Providers Care Lining Mechanic Name Role Phone Marge Leal MD Primary Care Provide r Reason for Visit * Reason Comments Chemotherapy C1/D2 - Etoposide * Episode Based Medications (Routine) - Pending Review Specialty Diagnoses / Procedures Referred By Tj t Referred To Contact Diagnoses 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) Encounter for antineoplastic chemotherapy Procedures OR CARBOPLATIN INJECTION OR FOSAPREPITANT INJECTION OR ETOPOSIDE 10 MG INJ Logan Mancia MD [address] [place] [address] Phone: tel: fax: Hematology/Oncology Treatment, [address] [address] Phone: tel: fax: Referral ID Status Reason Start Date Expiration Date V isits Requested Visits Authorized [id number] Pending Review 12/29/2024 09/28/2099 99 99 Encounter Details Date Type Department Care Team (Latest Contact Info) Description 01/04/2025 8:00 AM EDT Hem/Onc Treatment Hematology/Oncolog y Treatment, [address] [address] Park, Chair 9 Hem Onc Scenery [address] [place] [address] 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)*; Encounter for antineoplastic chemotherapy Allergies Active Allergy Reactions Criticality Noted Date Comments Varenicline Neuro complications (Please comment) Low 08/23/2019 Vivid nightmares Lisinopril Edema face/lips/tongue High 03/29/2014 Metoprolol Tartrate Edema face/lips/tongue,Other (Please comment) High 05/07/2019 Facial swelling, airway closing up documented as of this encounter (statuses as of 01/04/2025) Medications aspirin 81 MG chewable tabletIndicatio ns:Asymptomatic [...] as of this encounter (statuses as of 01/04/2025) Active Problems Problem Noted Date Diagnosed Date Prevention of chemotherapy-induced neutropenia 0 01/03/2025 Iron [...] as of this encounter (statuses as of 01/04/2025) Resolved Problems Problem Noted Date Diagnosed Date [...] as of this encounter (statuses as of 01/04/2025) Immunizations Name Administration Dates Next Due Pneumococcal [...] money to buy more. Never true 07/13/20 Within the past 12 months, t he [...] Sign Reading Time Taken Comments Blood Pressure 143/74 01/04/2025 8:15 AM EDT Pulse 81 01/04/2025 8:15 AM EDT Temperature 35.9 °C (96.6 °F) 01/04/2025 8:15 AM ED T Respiratory Rate 18 01/04/2025 8:15 AM EDT Oxygen Saturation 92% 01/04/2025 8:15 AM EDT Inhaled Oxygen Concentration - - Weight [...] Nursing Notes * Sally Nolasco RN - 01/04/2025 3:04 PM EDT Goals: Patient will remain free from injury. Possible barriers to meeting goals: ambulating with IV pole Stability of the patient: Moderately stable - low risk of patient condition declining or worsening Summary regarding today's goals: Met: pt remained free of harm today Patient tolerated treatment well without any acute issues or problems. IV left in place for chemo tx tomorrow. Patient left facility in stable condition and denied any further needs. * Sally Nolasco RN - 01/04/2025 10:44 AM EDT Chair 11. IV in place from treatment yesterday, CDI/WNL, some bruising at site but no pain or swelling. Patient is overall feeling well and well rested since she feels she finally got 8 hours of sleep without waking up after trying ativan to help her sleep at night. Chemotherapy/Immunotherapy agents: CARBOPLATIN and ETOPOSIDE Consent for chemotherapy drug treatment complete, dated, and signed? yes, date - 12/29/2024 Treatment lab parameters met? Yes Has treatment weight changed > than 10%? No Treatment preauthorized? Yes VITALS Filed Vitals: 01/04/25 0815 BP: 143/74 Pulse: 81 Resp: 18 Temp: 35.9 °C (96.6 °F) TempSrc: Tympanic SpO2: 92% BP Readings from Last 2 Encounters: 01/04/25 143/74 01/03/25 163/73 Pulse Readings from Last 2 Encounters: 01/04/25 81 01/03/25 91 Resp Readings from Last 2 Encounters: 01/04/25 18 01/03/25 20 SpO2 Readings from Last 2 Encounters: 01/04/25 92% 01/03/25 91% Temp Readings from Last 2 Encounters: 01/04/25 35.9 °C (96.6 °F) (Tympanic) 01/03/25 36.7 °C (98.1 °F) (Oral) Urine protein: N/A Patient education completed for treatment? Yes Blood transfusion consent signed and complete? NA Return appointment scheduled? Yes Patient had provider visit today? No - If no provider visit must complete Pretreatment Assessment Functional Status: Functional status at today's visit: Restricted in physically strenuous activity but ambulatory and able to carry out work on a light orsedentary nature, e.g. light house work, office work The drug name, dose, infusion volume, rate and route of administration, expiration date and time, appearance and physical integrity of the drug and rate set on the pump and sequencing of drug administration (as applicable) were verified by me and second sign-in RN. Patient was assessed for symptoms or adverse side effects during treatment. Patient Education: Patient instructed on use of heat and massage functions where applicable. Patient shown how to operate the heat function of the chair and to alert nursing staff if the chair feels too warm. Patient instructed on the risk of potential estrada while using the heat function. PRE-TREATMENT ASSESSMENT: NEURO: denies symptoms CV/RESP: denies symptoms GI/: denies symptoms OTHER: denies any additional symptoms PAIN: 0 Safety and Risk for Injury Patient will remain free from injury. Ensure appropriate safety devices are available. Provide and maintain safe environment. documented in this encounter Plan of Treatment Upcoming Encounters Date Type Department Care Team (Latest Contact Info) Description 01/05/2025 9:00 AM EDT Imaging Radiology [facility], [place] [address] [place] [phone] 01/05/2025 12:15 PM EDT Hem/Onc Treatment Hematology[facility] [place] [facility] [phone] [place], Chair 8 [address] [address] 01/06/2025 12:29 PM EDT Hospital Encounter OR [facility], Operating Room, [facility] Floor [address] [address] Renny Titus MD [address] [place] [address] 01/06/2025 12:29 PM EDT - 01/06/2025 1:28 PM EDT Surgery OR [facility], Operating Room, [facility] - [address] [place] [address] [address] [place] [address] Renny Titus MD [address] [place] [address] INSERT TUNNELED CENTRAL VENOUS ACCESS WITH SUBQ PORT 01/28/2025 10:20 AM EDT Office Visit Family Medicine [address] [place] [phone] Rafael Ochoa [address] [place] [address] 02/15/2025 10:40 AM EDT Office Visit Neurology [place] [facility] [place] [address] Corey Smiley MD [address] [place] [address] 09/02/2025 10:00 AM EST Office Visit Family Medicine [address] [place] [phone] Marge Leal MD [address] [place] [address] [place] [address] Scheduled Procedures Name Priority Associated Diagnoses Date/Ti [...] COPD 11/17/2025 11/17/2024 CKD PHOS USE SMARTSET 20206 11/20/202510/315, 11/19/2024, 11/18/2024, Additional history exists CKD HGB USE SMARTSET 19568 01/03/202601/03, 01/03/2025, 12/31/2024, Additional history exists Colonoscopy 10/07/2026 10/07/2023, 05/2024, 07/25/2023, Additional history exists Colorectal Cancer Screening 10/07/2026 DTap/Tdap Vaccines (3 - Td or Tdap) 09/20/2029 09/20/2019, 01/23/2009 Pneumococcal Vaccine: 50+ Years Completed 07/27/2018, 09/24/2016, 01/23/2009 VITAMIN D LEVEL ONCE IN A LIFETIME-USE SMARTSET# 04312 Completed 06/27/2023, 03/01/2019, 03/26/2017, Additional history exists [...] this encounter Medical Devices Implanted Type Area Skein Yard Drier Device Identifier Shelf Expiration Date Model / Serial / Lot Graft Allomax 1.0 6x16cm - [id number] - [id number] Implanted:Qty: 1 on 07/03/2015 by Jere Souza MD at OR [facility] Right: Breast CR BARD : DAVOL 08/28/2019 [id number] / [id number] / [id number] Graft Allomax 1.0 6x16cm - [id number] - [id number] Implanted:Qty: 1 on 07/03/2015 by Jere Souza MD at OR [facility] Left: Breast CR BARD : DAVOL 04/28/2017 [id number] / [id number] / [id number] Implant Breast Li+ 350-2251bc - [id number] Implanted:Qty: 1 on 12/28/2015 by Jere Souza MD at OR [facility] Left: Breast MENTOR DANYELLE 03/28/2016 [id number] / / [id number] Implant Breast Li+ [id number] - [id number] Implanted:Qty: 1 on 12/28/2015 by Jere Souza MD at [facility] Right: Breast ELIZABETH DANYELLE 03/28/2016 [id number] / / [id number] documented as of this encounter Visit Diagnoses Diagnosis 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)- Primary Encounter for antineoplastic chemotherapy Malignant neoplasm of lung, unspecified laterality, unspecified part of lung (HCC) documented in this encounter Administered Medications Inactive Administered Medications - up to 3 most recent administrations Medication Order MAR Action Action Date Dose Rate Site etoposide (VEPESID) 190 mg in NSS 500 mL infusion 190 mg (rounded from 192 mg = 100 mg/m2 1.92 m2 Treatment Plan BSA from Recorded weight), IV Piggyback, ONCE, 1 dose, On Fri01/04/25 at 1000, Administer over 60 Minutes, Recommended concentration is less than or equal to 0.4 mg/mL. If concentration is greater than 0.4 mg/mL recommend to administer through 0.22 micron low protein binding filter.Indications: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),Encounter for antineoplastic chemotherapy Start Infusion 01/04/2025 8:54 AM EDT 190 mg 519.5 mL/hr NSS infusion Intravenous, at 50 mL/hr, PRN, Starting on Fri01/04/25 at 0930, Until Fri01/04/25 at 1908, Maintenance lineIndications: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),Encounter for antineoplastic chemotherapy Start Infusion 01/04/2025 8:20 AM EDT 50 mL/hr ondansetron (Zofran) tab 8 mg 8 mg, Oral, ONCE, On Fri01/04/25 at 0930, For 1 dose, Give 30 minutes prior to chemotherapy.Indications:Pr imary malignant neoplasm of left upper lobe of lung (HCC),Encounter for antineoplastic chemotherapy Given 01/04/2025 8:41 AM EDT 8 mg sodium chloride 0.9 % flush/inj 20 mL 20 mL, IV Push, PRN IV Flush and Lock, Starting on Fri01/04/25 at 0818, Until Fri01/04/25 at 1908, Do not flush if lock, PICC, or central line not in place; IV infusing or unable to flush. For midlines and central lines. For IV Flush and Lock, IVAD is flushed with a total of 20 mL Normal Saline, 10 mL of Normal Saline Flush with 10 mL of Normal Saline acting as IV LOCK.Indications: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),Encounter for antineoplastic chemotherapy Given 01/04/2025 10:01 AM EDT 20 mL documented in this encounter Advance Directives * [...] Directives occurred with: Not Discussed Care Teams Lining Mechanic Relationship Specialty Start Date End Date Marge Leal MD [address] [place] [address] [place] [address] PCP - General Family Medicine 12/31/24 documented as of this encounter
--- OUTSIDE RECORDS SUMMARY | 2025-01-12 17:59 | External Medical Summary | Summary of Care ---
Author Name Unknown Organization [facility] Address [address] [facility] [place] [address] Phone [phone] Care Team Providers Care Electrician Marine Name Role Phone Marge Leal MD Primary Care Provide r Reason for Visit * Reason Onset Date Comments Appointment 01/05/2025 Encounter Details Date Type Department Care Team (Late st Contact Info) Description 01/05/2025 Telephone Hematology/Oncology [place] [address] [facility] [address] Services, Scheduling [address] [place] [address] Appointment Allergies Active Allergy Reactions Criticality Noted [...] the patient is currently at [facility] she has just finished up [...] now. You can call Matthew back at [phone] documented in this encounter Plan of Treatment Upcoming Encounters Date Type Department Care Team (Latest Contact Info) Description 01/06/2025 12:29 PM EDT Hospital Encounter OR [facility], Operating Room, [facility] - 4th Floor [address] [address] Renny Titus MD [address] [place] [address] 01/06/2025 12:29 PM EDT - 01/06/2025 1:28 PM EDT Surgery OR [facility], Operating Room, [facility] - 4th Floor [address] [place] [address] Renny Titus MD [address] [place] [address] INSERT TUNNELED CENTRAL VENOUS ACCESS WITH SUBQ PORT 01/24/2025 8:50 AM EDT Laboratory [facility] [employer] [address] [place] [phone] Desirae, Lab Scenery [address] [address] 01/24/2025 9:30 AM EDT Office Visit Hematology/Oncolog y [facility] [place] [address] [place] [phone] Logan Lilly MD [address] [place] [address] 01/24/2025 10:00 AM EDT Hem/Onc Treatment Hematology/Oncolog y Treatment, [place] 200 [facility] [place] [phone] Desirae, Chair 11 Hem Onc Scenery [address] [address] 01/25/2025 9:15 AM EDT Hem/Onc Treatment Hematology/Oncolog y Treatment, [place] 200 [facility] [place] [address] Desirae, Chair 10 Hem Onc Scenery [address] [address] 01/26/2025 10:30 AM EDT Hem/Onc Treatment Hematology/Oncolog y Treatment, [place] [address] [facility] [place] [phone] Desirae, Chair 11 Hem Onc [facility] [address] [facility] [place] [address] 01/28/2025 10:20 AM EDT Office Visit [address] [phone] Rafael Ochoa CRNP [address] [place] [address] [place] [address] 02/15/2025 10:40 AM EDT Office Visit Neurology [facility] [address] [facility] [place] [address] Corey Smiley MD [address] [place], [place] [phone] 09/02/2025 10:00 AM EST Office Visit [address] [phone] Marge Leal MD [address] [place] [address] [place] [address] Scheduled Procedures Name Priority Associated Diagnoses Date/Ti [...] COPD 11/17/2025 11/17/2024 CKD PHOS USE SMARTSET 13398 11/20/202510/31, 11/19/2024, 11/18/2024, Additional history exists CKD HGB USE SMARTSET 20956 01/03/202601/03, 01/03/2025, 12/31/2024, Additional history exists Colonoscopy 10/07/2026 10/07/2023, 05/2024, 07/25/2023, Additional history exists Colorectal Cancer Screening 10/07/2026 DTap/Tdap Vaccines (3 - Td or Tdap) 09/20/2029 09/20/2019, 01/23/2009 Pneumococcal Vaccine: 50+ Years Completed 07/27/2018, 09/24/2016, 01/23/2009 VITAMIN D LEVEL ONCE IN A LIFETIME-USE SMARTSET# 47111 Completed 06/27/2023, 03/01/2019, 03/26/2017, Additional history exists [...] this encounter Medical Devices Implanted Type Area Data Operations Manager Device Identifier Shelf Expiration Date Model / Serial / Lot Graft Allomax 1.0 6x16cm - [id number] - [id number] Implanted:Qty: 1 on 07/03/2015 by Jere Souza MD [place] [facility] [place] Right: Breast CR BARD : DAVOL 08/28/2019 [id number] / [id number] / [id number] Graft Allomax 1.0 6x16cm - [id number] - [id number] Implanted:Qty: 1 on 07/03/2015 by Jere Souza MD at [facility] Left: Breast CR BARD : DAVOL 04/28/2017 [id number] / [id number] / [id number] Implant Breast Li+ [id number] - [id number] Implanted:Qty: 1 on 12/28/2015 by Jere Souza MD [place] [facility] [place]: Breast MENTOR DANYELLE 03/28/2016 [id number] / / [id number] Implant Breast Li+ [id number] - [id number] Implanted:Qty: 1 on 12/28/2015 by Jere Souza MD [place] [facility] [place] Right: Breast MENTOR DANYELLE 03/28/2016 [id number] / / [id number] documented as of this encounter Visit Diagnoses [...] Directives occurred with: Not Discussed Care Teams Electrician Marine Relationship Specialty Start Date End Date Marge Leal MD [address] [place] [address] [place] [address] PCP - General Family Medicine 12/31/24 documented as of this encounter
--- OUTSIDE RECORDS SUMMARY | 2025-01-12 17:59 | External Medical Summary | Summary of Care ---
Author Name Unknown Organization [facility] Address [address] [facility] [place] [address] Phone [phone] Care Team Providers Care Commercial Project Manager Name Role Phone Marge Leal MD Primary Care Provide r Reason for Visit * Reason Onset Date Comments Order Request 01/03/2025 ac Encounter Details Date Type Department Care Team (Late st Contact Info) Description 01/03/2025 Telephone Hematology/Oncology Treatment, [place] [address] [place] [address] Logan Mancia MD [address] [place] [address] Order Request (ac) Allergies Active Allergy Reactions [...] encounter Miscellaneous Notes * Telephone Encounter - Mari Paulino OSA - 01/04/2025 8:37 AM EDT Lety working * Telephone Encounter - Elysia Troy RN - 01/03/2025 2:07 PM EDT Order placed, beacon updated. Patient is scheduled for port placement at [facility]- built day in for pegfilgrastim at [facility] withcycle 1 only. Precert: patient will need fulphila 01/06/25 at [facility] (built this as a separate plan), then [...] Description 01/05/2025 9:00 AM EDT Imaging Radiology [facility], [place] [address] [place] [phone] 01/05/2025 12:15 PM EDT Hem/Onc Treatment Hematology/Oncology Treatment, [place] [address] [place] [phone] Desirae, Chair 8 Hem Onc Scen[address] [place] [address] 01/06/2025 12:29 PM EDT Hospital Encounter OR [facility], Operating Room, [facility] - 4th Floor [address] [place] [address] Renny Titus MD [address] [address] 01/06/2025 12:29 PM EDT - 01/06/2025 1:28 PM EDT Surgery OR [facility], Operating Room, [facility] - 4th Floor [address] [place] [address] Renny Titus MD 400 [place] [address] INSERT TUNNELED CENTRAL VENOUS ACCESS WITH SUBQ PORT 01/28/2025 10:20 AM EDT Office Visit Family [address] [phone] Rafael Ochoa CRNP [address] [place] [address] [place] [address] 02/15/2025 10:40 AM EDT Office Visit Neurology [facility] 200 [place] [address] Corey Smiley MD [address] [place], [place] [phone] 09/02/2025 10:00 AM EST Office Visit Family Medicine [address] [phone] Marge Leal MD [address] [place] [address] [place] [address] Scheduled Procedures Name Priority Associated Diagnoses Date/Ti me INSERT TUNNELED CENTRAL VENOUS ACCESS WITH SUBQ PORT Malignant neoplasm of lung, unspecified laterality, unspecified part of lung (HCC) 01/06/2025 12:29 PM EDT COLONOSCOPY FLEXIBLE PROXIMAL DIAGNOSTIC Recall Constipation, unspecified constipation type Health Maintenance Due Date Last Done Comments DISCUSS TOBACCO CESSATION (REFER TO SMARTSET #6273) 1950 COVID-19 Vaccine (#1) 1955 Depression Screening [...] COPD 11/17/2025 11/17/2024 CKD PHOS USE SMARTSET 70750 11/20/202510/31, 11/19/2024, 11/18/2024, Additional history exists CKD HGB USE SMARTSET 50283 01/03/202601/03, 01/03/2025, 12/31/2024, Additional history exists Colonoscopy 10/07/2026 10/07/2023, 05/2024, 07/25/2023, Additional history exists Colorectal Cancer Screening 10/07/2026 DTap/Tdap Vaccines (3 - Td or Tdap) 09/20/2029 09/20/2019, 01/23/2009 Pneumococcal Vaccine: 50+ Years Completed 07/27/2018, 09/24/2016, 01/23/2009 VITAMIN D LEVEL ONCE IN A LIFETIME-USE SMARTSET# 93105 Completed 06/27/2023, 03/01/2019, 03/26/2017, Additional history exists [...] this encounter Medical Devices Implanted Type Area Cobbler Mckay Device Identifier Shelf Expiration Date Model / Serial / Lot Graft Allomax 1.0 6x16cm - [id number] - [id number] Implanted:Qty: 1 on 07/03/2015 by Jere Souza MD at [place] [facility] [place] Right: Breast CR BARD : DAVOL 08/28/2019 [id number] / [id number] / [id number] Graft Allomax 1.0 6x16cm - [id number] - [id number] Implanted:Qty: 1 on 07/03/2015 by Jere Souza MD at [place] [facility] [place] Left: Breast CR BARD : DAVOL 04/28/2017 [id number] / [id number] / [id number] Implant Breast Li+ 350-2251bc - [id number] Implanted:Qty: 1 on 12/28/2015 by Jere Souza MD at [place] [facility] [place] Left: Breast MENTOR DANYELLE 03/28/2016 [id number] / / [id number] Implant Breast Il+ [id number] - [id number] Implanted:Qty: 1 on 12/28/2015 by Jere Souza MD at [place] [facility] [place] Right: Breast MENTOR DANYELLE 03/28/2016 [id number] / / [id number] documented as of this encounter Visit Diagnoses [...] Directives occurred with: Not Discussed Care Teams Commercial Project Manager Relationship Specialty Start Date End Date Marge Leal MD [address] [place] [address] [place] [address] PCP - General Family Medicine 12/31/24 documented as of this encounter
--- OUTSIDE RECORDS SUMMARY | 2025-01-12 17:59 | External Medical Summary | Summary of Care ---
Author Name Unknown Organization [facility] Address [address] [facility] [place] [address] Phone [phone] Care Team Providers Care Composition Professor Name Role Phone Marge Leal MD Primary Care Provide r Reason for Visit * Reason Onset Date Comments Order Request 01/03/2025 ac Encounter Details Date Type Department Care Team (Late st Contact Info) Description 01/03/2025 Telephone Hematology/Oncology Treatment, [place] [address] [place] [address] Logan Mancia MD 200 [place] [address] Order Request (ac) Allergies Active Allergy Reactions [...] Patient is scheduled for port placement at [facility]- built day in for pegfilgrastim at [facility] withcycle 1 only. Precert: patient will need fulphila 01/06/25 at [facility] (built this as a separate plan), then [...] Description 01/05/2025 9:00 AM EDT Imaging Radiology [facility] 1st Floor, [place] [address] [place] [phone] 01/05/2025 12:15 PM EDT Hem/Onc Treatment Hematology/Oncolog y Treatment, [place] [address] [place] [phone] Desirae, Chair 8 Hem Onc Scenery [address] [place] [address] 01/06/2025 12:29 PM EDT Hospital Encounter OR [facility], Operating Room, [facility] - 4th Floor [address] [place] [phone] Renny Titus MD [address] [place] [address] 01/06/2025 12:29 PM EDT - 01/06/2025 1:28 PM EDT Surgery OR [facility], Operating Room, [facility] - 4th Floor [address] [place] [phone] Renny Titus MD [address] [place] [address] INSERT TUNNELED CENTRAL VENOUS ACCESS WITH SUBQ PORT 01/24/2025 8:50 AM EDT Laboratory Laboratory [place] [address] [place] [phone] Desirae, Lab Scenery [address] [address] 01/24/2025 9:30 AM EDT Office Visit Hematology/Oncolog y [facility] [place] [address] [place] [phone] Logna Mancia MD [address] [place] [address] 01/24/2025 10:00 AM EDT Hem/Onc Treatment Hematology/Oncolog y Treatment, [place] [address] [place] [phone] Desirae, Chair 11 Hem Onc Scenery [address] [place] [address] 01/25/2025 9:15 AM EDT Hem/Onc Treatment Hematology/Oncolog y Treatment, [place] [address] [place] [place] [phone] Desirae, Chair 10 Hem Onc Scenery 200 [facility] [place] [address] 01/26/2025 10:30 AM EDT Hem/Onc Treatment Hematology/Oncolog y Treatment, [place] 200 [facility] [place] [phone] Desirae, Chair 11 Hem Onc [facility] 200 [facility] [place] [address] 01/28/2025 10:20 AM EDT Office Visit Family Medicine [address] [phone] Rafael Ochoa CRNP [address] [place] [address] [place] [address] 02/15/2025 10:40 AM EDT Office Visit Neurology [facility] [place] 200 [facility] [place] [address] Corey Smiley MD [address] [place], [place] [phone] 09/02/2025 10:00 AM EST Office Visit Family [address] [phone] Marge Leal MD [address] [place] [address] [place] [address] Scheduled Procedures Name Priority Associated Diagnoses Date/Ti me INSERT TUNNELED CENTRAL VENOUS ACCESS WITH SUBQ PORT Malignant neoplasm of lung, unspecified laterality, unspecified part of lung (HCC) 01/06/2025 12:29 PM EDT COLONOSCOPY FLEXIBLE PROXIMAL DIAGNOSTIC Recall Constipation, unspecified constipation type Health Maintenance Due Date Last Done Comments DISCUSS TOBACCO CESSATION (REFER TO SMARTSET #0629) 1950 COVID-19 Vaccine (#1) 1956 Depression Screening [...] COPD 11/17/2025 11/17/2024 CKD PHOS USE SMARTSET 21731 11/20/202510/31, 11/19/2024, 11/18/2024, Additional history exists CKD HGB USE SMARTSET 57765 01/03/202601/03, 01/03/2025, 12/31/2024, Additional history exists Colonoscopy 10/07/2026 10/07/2023, 05/2024, 07/25/2023, Additional history exists Colorectal Cancer Screening 10/07/2026 DTap/Tdap Vaccines (3 - Td or Tdap) 09/20/2029 09/20/2019, 01/23/2009 Pneumococcal Vaccine: 50+ Years Completed 07/27/2018, 09/24/2016, 01/23/2009 VITAMIN D LEVEL ONCE IN A LIFETIME-USE SMARTSET# 59310 Completed 06/27/2023, 03/01/2019, 03/26/2017, Additional history exists [...] this encounter Medical Devices Implanted Type Area Shells Inspector Device Identifier Shelf Expiration Date Model / Serial / Lot Graft Allomax 1.0 6x16cm - [id number] - [id number] Implanted:Qty: 1 on 07/03/2015 by Jere Souza MD at [place] [facility] Right: Breast CR BARD : DAVOL 08/28/2019 [id number] / [id number] / [id number] Graft Allomax 1.0 6x16cm - [id number] - [id number] Implanted:Qty: 1 on 07/03/2015 by Jere Souza MD at OR [facility] Left: Breast CR BARD : DAVOL 04/28/2017 [id number] / [id number] / [id number] Implant Breast Li+ 350-2251bc - [id number] Implanted:Qty: 1 on 12/28/2015 by Jere Souza MD at OR [facility] Left: Breast MENTOR DANYELLE 03/28/2016 350-2251BC / / [id number] Implant Breast Li+ 350-2251bc - [id number] Implanted:Qty: 1 on 12/28/2015 by Jere Souza MD at OR [facility] Right: Breast MENTOR DANYELLE 03/28/2016 [id number] / / [id number] documented as of this encounter Visit Diagnoses [...] Directives occurred with: Not Discussed Care Teams Composition Professor Relationship Specialty Start Date End Date Marge Leal MD [address] [place] [address] [place] [phone] PCP - General Family Medicine 12/31/24 documented as of this encounter
--- OUTSIDE RECORDS SUMMARY | 2025-01-12 17:59 | External Medical Summary | Summary of Care ---
Author Name Unknown Organization [facility] Address [address] [facility] [place] [address] Phone [phone] Care Team Providers Care Portrait Consultant Name Role Phone Marge Leal MD Primary Care Provide r Reason for Visit * Reason Onset Date Comments Order Request 01/03/2025 ac Encounter Details Date Type Department Care Team (Late st Contact Info) Description 01/03/2025 Telephone Hematology/Oncology Treatment, [place] [address] [place] [address] Logan Mancia MD 200 [place] [address] Order Request (ac) Allergies Active Allergy Reactions [...] Patient is scheduled for port placement at [facility]- built day in for pegfilgrastim at [facility] withcycle 1 only. Precert: patient will need fulphila 01/06/25 at [facility] (built this as a separate plan), [...] Description 01/05/2025 9:00 AM EDT Imaging Radiology [facility] 1st [facility], [place] [address] [place] [phone] 01/05/2025 12:15 PM EDT Hem/Onc Treatment Hematology/Oncology Treatment, [place] [address] [place] [phone] Desirae, Chair 8 Hem Onc Scenery [address] [place] [address] 01/06/2025 12:29 PM EDT Hospital Encounter OR [facility], Operating Room, [facility] - 4th Floor [address] [place] [phone] Renny Titus MD [address] [place] [address] 01/06/2025 12:29 PM EDT - 01/06/2025 1:28 PM EDT Surgery OR [facility], Operating Room, [facility] - 4th Floor [address] [place] [phone] Renny Titus MD 400 [facility] [place] [address] INSERT TUNNELED CENTRAL VENOUS ACCESS WITH SUBQ PORT 01/28/2025 10:20 AM EDT Office Visit Family [address] [phone] Rafael Ochoa CRNP [address] [place] [address] [place] [address] 02/15/2025 10:40 AM EDT Office Visit Neurology [facility] 200 [place] [address] Corey Smiley MD [address] [place], [place] [phone] 09/02/2025 10:00 AM EST Office Visit Family Medicine [address] [phone] Marge Leal MD [address] [place] [address] [place] [address] Scheduled Procedures Name Priority Associated Diagnoses Date/Ti me INSERT TUNNELED CENTRAL VENOUS ACCESS WITH SUBQ PORT Malignant neoplasm of lung, unspecified laterality, unspecified part of lung (HCC) 01/06/2025 12:29 PM EDT COLONOSCOPY FLEXIBLE PROXIMAL DIAGNOSTIC Recall Constipation, unspecified constipation type Health Maintenance Due Date Last Done Comments DISCUSS TOBACCO CESSATION (REFER TO SMARTSET #7213) 1950 COVID-19 Vaccine (#1) 1956 Depression Screening [...] COPD 11/17/2025 11/17/2024 CKD PHOS USE SMARTSET 90842 11/20/202510/31, 11/19/2024, 11/18/2024, Additional history exists CKD HGB USE SMARTSET 02188 01/03/202601/03, 01/03/2025, 12/31/2024, Additional history exists Colonoscopy 10/07/2026 10/07/2023, 05/2024, 07/25/2023, Additional history exists Colorectal Cancer Screening 10/07/2026 DTap/Tdap Vaccines (3 - Td or Tdap) 09/20/2029 09/20/2019, 01/23/2009 Pneumococcal Vaccine: 50+ Years Completed 07/27/2018, 09/24/2016, 01/23/2009 VITAMIN D LEVEL ONCE IN A LIFETIME-USE SMARTSET# 14955 Completed 06/27/2023, 03/01/2019, 03/26/2017, Additional history exists [...] this encounter Medical Devices Implanted Type Area Ice Cream Vault Worker Device Identifier Shelf Expiration Date Model / Serial / Lot Graft Allomax 1.0 6x16cm - [id number] - [id number] Implanted:Qty: 1 on 07/03/2015 by Jere Souza MD at OR [facility] Right: Breast CR BARD : DAVOL 08/28/2019 [id number] / [id number] / [id number] Graft Allomax 1.0 6x16cm - [id number] - [id number] Implanted:Qty: 1 on 07/03/2015 by Jere Souza MD at OR [facility] Left: Breast CR BARD : DAVOL 04/28/2017 [id number] / [id number] / [id number] Implant Breast Li+ 350-2251bc - [id number] Implanted:Qty: 1 on 12/28/2015 by Jere Souza MD at OR [facility] Left: Breast MENTOR DANYELLE 03/28/2016 350-2251BC / / [id number] Implant Breast Li+ 350-2251bc - [id number] Implanted:Qty: 1 on 12/28/2015 by Jere Souza MD at OR [facility] Right: Breast MENTOR DANYELLE 03/28/2016 350-2251BC / / [id number] documented as of this encounter Visit Diagnoses [...] Directives occurred with: Not Discussed Care Teams Portrait Consultant Relationship Specialty Start Date End Date Marge Leal MD [address] [place] [address] [place] [address] PCP - General Family Medicine 12/31/24 documented as of this encounter
--- OUTSIDE RECORDS SUMMARY | 2025-01-12 18:00 | External Medical Summary | Summary of Care ---
Author Name Unknown Organization [facility] Address [address] [facility] [place] [address] Phone [phone] Care Team Providers Care Cooling Pipe Inspector Name Role Phone Marge Leal MD Primary Care Provide r Reason for Visit * Reason Onset Date Comments Med Request 12/30/2024 Encounter Details Date Type Department Care Team (Late st Contact Info) Description 12/30/2024 Telephone Family Medicine [address] [place] [phone] Marge Leal MD [address] [place] [address] [place] [address] Med Request Allergies Active Allergy Reactions Criticality Noted Date Comments Varenicline Neuro complications (Please comment) Low 08/23/2019 Vivid nightmares Lisinopril Edema face/lips/tongue High 03/29/2014 Metoprolol Tartrate Edema face/lips/tongue,Other (Please comment) High 05/07/2019 Facial swelling, airway closing up documented as of this encounter (statuses as of 01/03/2025) Medications aspirin 81 MG chewable tabletIndication s:Asymptomatic stenosis of left carotid artery Take 1 Tablet by mouth in the morning. with food.. 100 Tab 5 9 Active Vitamin D3 10 MCG (400 UNIT) Oral Tablet (Cholecalciferol ) Take 1 Tablet by mouth in the morning. Active hydroCHLOROthiaz yessy 25 MG Oral Tablet (Hydrodiuril)Ind ications:HTN, goal below 140/90 TAKE 1 TABLET BY MOUTH EVERY DAY IN THE MORNING 90 Tablet 1 4 Active Atorvastatin Calcium 20 MG Oral Tablet (Lipitor)Indicat ions:Asymptomati c stenosis of left carotid artery TAKE 1 TABLET BY MOUTH EVERY DAY IN THE MORNING 90 Tablet 1 4 Active DULoxetine HCl 20 MG Oral Capsule Delayed Release Particles (Cymbalta)Indica tions:Anxiety TAKE 1 CAPSULE BY MOUTH IN THE MORNING. DO NOT CUT, CRUSH OR CHEW. 90 Capsule 1 4 Active Additional Information Patient taking differently:20 mg OralHS, Do not cut, crush or chew, Reported on 12/06/2024 Acetaminophen 500 MG Oral Tablet (Tylenol Extra Strength) Take 2 Tablets by mouth every 6 hours as needed. Active Tylenol PM Extra Strength 500-25 MG Oral Tablet (diphenhydrAMINE -APAP (sleep)) Take 2 Tablets by mouth at bedtime as needed for Sleep. Active oxyCODONE HCl 5 MG Oral Tablet (Oxy IR) Take 1 Tablet by mouth every 6 hours as needed for Pain, Severe or Pain, Moderate (ongoing therapy). 10 Tablet 5 Active amLODIPine Besylate 10 MG Oral Tablet (Norvasc)Indicat ions:HTN, goal below 140/90 TAKE 1 TABLET BY MOUTH EVERY DAY IN THE MORNING 90 Tablet 1 5 Active Additional Information Patient taking differently: HS, Reported on 12/06/2024 Ondansetron HCl 8 MG Oral Tablet (Zofran)Indicati ons:Malignant neoplasm of lung, unspecified laterality, unspecified part of lung (HCC) Take 1 Tablet by mouth every 8 hours as needed for Nausea. 30 Tablet 1 5 Active Prochlorperazine Maleate 10 MG Oral Tablet (Compazine)Indic ations:Malignant neoplasm of lung, unspecified laterality, unspecified part of lung (HCC) Take 1 Tablet by mouth every 6 hours as needed for Nausea. 30 Tablet 5 Active documented as of this encounter (statuses as of 01/03/2025) Active Problems Problem Noted Date Diagnosed Date [...] as of this encounter (statuses as of 01/03/2025) Resolved Problems Problem Noted Date Diagnosed Date [...] as of this encounter (statuses as of 01/03/2025) Immunizations Name Administration Dates Next Due Pneumococcal [...] encounter Miscellaneous Notes * Telephone Encounter - Jerrica Jacob CMA - 01/03/2025 3:09 PM EDT I spoke to Joanie. Dr. Mancia is handling prescribing a sleep aid/anxiety medication for her. * Telephone Encounter - Rafael Ochoa CRNP - 12/31/2024 1:49 PM EDT It has been 6 months since we last saw her. I see she is scheduled with me on 01/28 and we can discuss this then, but if she does not want to wait this long then can we maybe try to get her in sooner with me to talk about options. * Telephone Encounter - Catalina Randhawa RN - 12/31/2024 11:52 AM EDT Rafael are you comfortable giving her this, see original message? * Telephone Encounter - Marge Leal MD - 12/31/2024 10:49 AM EDT I have not seen her since 2019. Needs appointment or request sent to someone who has seen her recently * Telephone Encounter - Jade Scherer OSA - 12/30/2024 10:12 AM EDT Patient called requesting a prescription for sleep aid medication. Patient stated she is starting chemo and has been overwhelmed. Patient reports taking tylenol PM still unable to sleep. Patient stated she has difficulty sleeping since end of September 2024. Joanie can be contacted at [phone] documented in this encounter Plan of Treatment Upcoming Encounters Date Type Department Care Team (Latest Contact Info) Description 01/04/2025 8:00 AM EDT Hem/Onc Treatment Hematology/Oncology Treatment, [address] [place] [phone] Desirae, Chair 9 Hem Onc [address] [place] [address] 01/05/2025 9:00 AM EDT Imaging Radiology [facility] 1st [facility] [address] [place] [phone] 01/05/2025 1:00 PM EDT Hem/Onc Treatment Hematology/Oncology Treatment, [address] [place] [phone] Desirae, Chair 9 Hem Onc [facility] 200 [facility] [place] [address] 01/06/2025 12:29 PM EDT Hospital Encounter OR [facility], Operating Room, [facility] - 4th Floor [address] [place] [phone] Renny Titus MD 400 [place] [address] 01/06/2025 12:29 PM EDT - 01/06/2025 1:28 PM EDT Surgery OR [facility], Operating Room, [facility] - 4th Floor [address] [place] [address] Renny Titus MD 400 [place] [address] INSERT TUNNELED CENTRAL VENOUS ACCESS WITH SUBQ PORT 01/28/2025 10:20 AM EDT Office Visit [address] [phone] Rafael Ochoa CRNP [address] [place] [address] [place] [address] 02/15/2025 10:40 AM EDT Office Visit Neurology [facility] [place] 200 [facility] [place] [address] Corey Smiley MD [address] [place] [address] 09/02/2025 10:00 AM EST Office Visit Family [address] [place] [phone] Marge Leal MD [address] [place] [address] [place] [address] Scheduled Procedures Name Priority Associated Diagnoses Date/Ti me INSERT TUNNELED CENTRAL VENOUS ACCESS WITH SUBQ PORT Malignant neoplasm of lung, unspecified laterality, unspecified part of lung (HCC) 01/06/2025 12:29 PM EDT COLONOSCOPY FLEXIBLE PROXIMAL DIAGNOSTIC Recall Constipation, unspecified constipation type Health Maintenance Due Date Last Done Comments DISCUSS TOBACCO CESSATION (REFER TO SMARTSET #2445) 1950 COVID-19 Vaccine (#1) 1956 Depression Screening [...] COPD 11/17/2025 11/17/2024 CKD PHOS USE SMARTSET 94017 11/20/202510/31, 11/19/2024, 11/18/2024, Additional history exists CKD HGB USE SMARTSET 36697 01/03/202601/03, 01/03/2025, 12/31/2024, Additional history exists Colonoscopy 10/07/2026 10/07/2023, 05/2024, 07/25/2023, Additional history exists Colorectal Cancer Screening 10/07/2026 DTap/Tdap Vaccines (3 - Td or Tdap) 09/20/2029 09/20/2019, 01/23/2009 Pneumococcal Vaccine: 50+ Years Completed 07/27/2018, 09/24/2016, 01/23/2009 VITAMIN D LEVEL ONCE IN A LIFETIME-USE SMARTSET# 30824 Completed 06/27/2023, 03/01/2019, 03/26/2017, Additional history exists [...] this encounter Medical Devices Implanted Type Area Comparator Operator Device Identifier Shelf Expiration Date Model / Serial / Lot Graft Allomax 1.0 6x16cm - [id number] - [id number] Implanted:Qty: 1 on 07/03/2015 by Jere Souza MD at [place] [facility] [facility] Right: Breast CR BARD : DAVOL 08/28/2019 [id number] / [id number] / [id number] Graft Allomax 1.0 6x16cm - [id number] - [id number] Implanted:Qty: 1 on 07/03/2015 by Jere Souza MD at OR [facility] [place] Left: Breast CR BARD : DAVOL 04/28/2017 [id number] / [id number] / [id number] Implant Breast Li+ 350-2251bc - [id number] Implanted:Qty: 1 on 12/28/2015 by Jere Souza MD at OR [facility] [place] Left: Breast MENTOR DANYELLE 03/28/2016 350-2251BC / / [id number] Implant Breast Li+ 350-2251bc - [id number] Implanted:Qty: 1 on 12/28/2015 by Jere Souza MD at OR [facility] [facility] Right: Breast MENTOR DANYELLE 03/28/2016 350-2251BC / / [id number] documented as of this encounter Advance Directives [...] Directives occurred with: Not Discussed Care Teams Cooling Pipe Inspector Relationship Specialty Start Date End Date Marge Leal MD [address] [place] [address] [place] [phone] PCP - General Family Medicine 12/31/24 documented as of this encounter
--- OUTSIDE RECORDS SUMMARY | 2025-01-12 18:00 | External Medical Summary | Summary of Care ---
Author Name Unknown Organization [facility] Address [address] [facility] [place] [address] Phone [phone] Care Team Providers Care Funeral Home Manager Name Role Phone Marge Leal MD Primary Care Provide r Encounter Details Date Type Department Care Team (Late st Contact Info) Description 01/04/2025 Orders Only Hematology/Oncology [facility] [place] [address] [place] [phone] Logan Mancia MD [address] [place] [address] Allergies Active Allergy Reactions Criticality Noted Date [...] Description 01/05/2025 9:00 AM EDT Imaging Radiology [address], [place] [address] [place] [phone] 01/05/2025 12:15 PM EDT Hem/Onc Treatment Hematology/Oncology Treatment, [place] 200 [facility] [place] [phone] [place], Chair 8 Hem Onc [facility] 200 [facility] [place] [address] 01/06/2025 12:29 PM EDT Hospital Encounter OR [facility], Operating Room, [facility] - 4th Floor [address] [place] [phone] Renny Titus MD [address] [place] [address] 01/06/2025 12:29 PM EDT - 01/06/2025 1:28 PM EDT Surgery OR [facility], Operating Room, [facility] - 4th Floor [address] [place] [phone] Renny Titus MD 400 [facility] [place] [address] INSERT TUNNELED CENTRAL VENOUS ACCESS WITH SUBQ PORT 01/28/2025 10:20 AM EDT Office Visit Family [address] [phone] Rafael Ochoa CRNP [address] [place] [address] [place] [address] 02/15/2025 10:40 AM EDT Office Visit Neurology [facility] State [place] 200 [facility] [place] [address] Corey Smiley MD [address] [place], [place] [phone] 09/02/2025 10:00 AM EST Office Visit Family [address] [phone] Marge Leal MD [address] [place] [address] [place] [address] Scheduled Procedures Name Priority Associated Diagnoses Date/Ti me INSERT TUNNELED CENTRAL VENOUS ACCESS WITH SUBQ PORT Malignant neoplasm of lung, unspecified laterality, unspecified part of lung (HCC) 01/06/2025 12:29 PM EDT COLONOSCOPY FLEXIBLE PROXIMAL DIAGNOSTIC Recall Constipation, unspecified constipation type Health Maintenance Due Date Last Done Comments DISCUSS TOBACCO CESSATION (REFER TO SMARTSET #5869) 1950 COVID-19 Vaccine (#1) 1956 Depression Screening [...] COPD 11/17/2025 11/17/2024 CKD PHOS USE SMARTSET 40293 11/20/202510/31, 11/19/2024, 11/18/2024, Additional history exists CKD HGB USE SMARTSET 41616 01/03/202601/03, 01/03/2025, 12/31/2024, Additional history exists Colonoscopy 10/07/2026 10/07/2023, 05/2024, 07/25/2023, Additional history exists Colorectal Cancer Screening 10/07/2026 DTap/Tdap Vaccines (3 - Td or Tdap) 09/20/2029 09/20/2019, 01/23/2009 Pneumococcal Vaccine: 50+ Years Completed 07/27/2018, 09/24/2016, 01/23/2009 VITAMIN D LEVEL ONCE IN A LIFETIME-USE SMARTSET# 49293 Completed 06/27/2023, 03/01/2019, 03/26/2017, Additional history exists [...] this encounter Medical Devices Implanted Type Area Range Manager Device Identifier Shelf Expiration Date Model / Serial / Lot Graft Allomax 1.0 6x16cm - [id number] - [id number] Implanted:Qty: 1 on 07/03/2015 by Jere Souza MD at [place] [facility]: Breast CR BARD : DAVOL 08/28/2019 [id number] / [id number] / [id number] Graft Allomax 1.0 6x16cm - [id number] - [id number] Implanted:Qty: 1 on 07/03/2015 by Jere Souza MD at [facility] Left: Breast CR BARD : DAVOL 04/28/2017 [id number] / [id number] / [id number] Implant Breast Li+ 350-2251bc - [id number] Implanted:Qty: 1 on 12/28/2015 by Jere Souza MD at [place] [facility]: Breast MENTOR DANYELLE 03/28/2016 350-2251BC / / [id number] Implant Breast Li+ 350-2251bc - [id number] Implanted:Qty: 1 on 12/28/2015 by Jere Souza MD at [place] [facility]: Breast MENTOR DANYELLE 03/28/2016 350-2251BC / / [id number] documented as of this encounter Advance Directives [...] Directives occurred with: Not Discussed Care Teams Funeral Home Manager Relationship Specialty Start Date End Date Marge Leal MD [address] [place] [address] [place] [address] PCP - General Family Medicine 12/31/24 documented as of this encounter
--- OUTSIDE RECORDS SUMMARY | 2025-01-12 18:00 | External Medical Summary | Summary of Care ---
Author Name Unknown Organization [facility] Address [address] [facility] [place] [address] Phone [phone] Care Team Providers Care Lapel Baster Name Role Phone Marge Leal MD Primary Care Provide r Reason for Visit * Reason Onset Date Comments Order Request 01/03/2025 Encounter Details Date Type Department Care Team (Late st Contact Info) Description 01/03/2025 Telephone Hematology/Oncology Treatment, [place] 200 [place] [address] Logan Mancia MD 200 [place] [address] Order Request Allergies Active Allergy Reactions Criticality Noted Date Comments Varenicline Neuro complications (Please comment) Low 08/23/2019 Vivid nightmares Lisinopril Edema face/lips/tongue High 03/29/2014 Metoprolol Tartrate Edema face/lips/tongue,Other (Please comment) High 05/07/2019 Facial swelling, airway closing up documented as of this encounter (statuses as of 01/03/2025) Medications aspirin 81 MG chewable tabletIndicatio ns:Asymptomatic [...] Patient is scheduled for port placement at [facility]- built day in for pegfilgrastim at [facility] withcycle 1 only. Precert: patient will need fulphila 01/06/25 at [facility] (built this as a separate plan), [...] 8:00 AM EDT Hem/Onc Treatment Hematology/Oncology Treatment, [place] [address] [facility] [place] [phone] Desirae, Chair 9 Hem Onc Scenery 200 [place] [address] 01/05/2025 9:00 AM EDT Imaging Radiology [facility] 1st Floor, [place] [address] [place] [phone] 01/05/2025 1:00 PM EDT Hem/Onc Treatment Hematology/Oncology Treatment, [place] [address] [place] [phone] Desirae, Chair 9 Hem Onc Scenery 200 [place] [address] 01/06/2025 12:29 PM EDT Hospital Encounter OR [facility], Operating Room, [facility] - 4th Floor [address] [place] [address] [place] [phone] Renny Titus MD [facility] [place] [address] 01/06/2025 12:29 PM EDT - 01/06/2025 1:28 PM EDT Surgery OR [facility], Operating Room, [facility] - 4th Floor [address] [place] [place] [phone] Renny Titus MD [address] [facility] [place] [address] INSERT TUNNELED CENTRAL VENOUS ACCESS WITH SUBQ PORT 01/28/2025 10:20 AM EDT Office Visit Family [address] [phone] Rafael Ochoa CRNP [address] [place] [address] [place] [address] 02/15/2025 10:40 AM EDT Office Visit Neurology [facility] 200 [place] [address] Corey Smiley MD [address] [place], [place] [phone] 09/02/2025 10:00 AM EST Office Visit Family [address] [phone] Marge Leal MD [address] [place] [address] [place] [address] Scheduled Procedures Name Priority Associated Diagnoses Date/Ti [...] COPD 11/17/2025 11/17/2024 CKD PHOS USE SMARTSET 15166 11/20/202510/31, 11/19/2024, 11/18/2024, Additional history exists CKD HGB USE SMARTSET 26096 01/03/202601/03, 01/03/2025, 12/31/2024, Additional history exists Colonoscopy 10/07/2026 10/07/2023, 05/2024, 07/25/2023, Additional history exists Colorectal Cancer Screening 10/07/2026 DTap/Tdap Vaccines (3 - Td or Tdap) 09/20/2029 09/20/2019, 01/23/2009 Pneumococcal Vaccine: 50+ Years Completed 07/27/2018, 09/24/2016, 01/23/2009 VITAMIN D LEVEL ONCE IN A LIFETIME-USE SMARTSET# 64022 Completed 06/27/2023, 03/01/2019, 03/26/2017, Additional history exists [...] this encounter Medical Devices Implanted Type Area Roofing Subcontractor Device Identifier Shelf Expiration Date Model / Serial / Lot Graft Allomax 1.0 6x16cm - [id number] - [id number] Implanted:Qty: 1 on 07/03/2015 [place] [facility] [place] Breast CR BARD : DAVOL 08/28/2019 [id number] / [id number] / [id number] Graft Allomax 1.0 6x16cm - [id number] - [id number] Implanted:Qty: 1 on 07/03/2015 by Jere Souza MD at [facility] Left: Breast CR BARD : DAVOL 04/28/2017 [id number] / [id number] / [id number] Implant Breast Li+ 350-2251bc - [id number] Implanted:Qty: 1 on 12/28/2015 [place] Jere Souza MD [place] [facility] [place] Breast MENTOR DANYELLE 03/28/2016 [id number] / / [id number] Implant Breast Li+ 350-2251bc - [id number] Implanted:Qty: 1 on 12/28/2015 by Jere Souza MD [place] [facility] [place]: Breast MENTOR DANYELLE 03/28/2016 [id number] / / [id number] documented as of this encounter Visit Diagnoses [...] Directives occurred with: Not Discussed Care Teams Lapel Baster Relationship Specialty Start Date End Date Marge Leal MD [address] [place] [address] [place] [address] PCP - General Family Medicine 12/31/24 documented as of this encounter
--- OUTSIDE RECORDS SUMMARY | 2025-01-12 18:00 | External Medical Summary | Summary of Care ---
Author Name Unknown Organization [facility] Address [address] [facility] [place] [address] Phone [phone] Care Team Providers Care Intake Clinician Name Role Phone Marge Leal MD Primary Care Provide r Reason for Visit * Reason Comments Outpatient Testing Encounter Details Date Type Department Care Team (Latest Contact Info) Description 01/03/2025 1:00 PM EDT Pt Ed by Nurse [facility] [place] [address] [place] [address] Nurse Desirae Hem Onc [facility] 200 [facility] [place] [address] 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)* Allergies Active Allergy Reactions Criticality Noted Date Comments Varenicline Neuro complications (Please comment) Low 08/23/2019 Vivid nightmares Lisinopril Edema face/lips/tongue High 03/29/2014 Metoprolol Tartrate Edema face/lips/tongue,Other (Please comment) High 05/07/2019 Facial swelling, airway closing up documented as of this encounter (statuses as of 01/04/2025) Medications aspirin 81 MG chewable tabletIndication s:Asymptomatic [...] hours as needed for Nausea. 30 Tablet Active documented as of this encounter (statuses [...] of Assessment Author No 11/17/2024 7:33 PM EST Brooklyn Chau RN * Are you blind or do [...] documented in this encounter Nursing Notes * Elysia Troy RN - 01/03/2025 3:28 PM EDT Nurse education for carboplatin/ etoposide completed. documented in this encounter Plan of Treatment Upcoming Encounters Date Type Department Care Team (Latest Contact Info) Description 01/04/2025 8:00 AM EDT Hem/Onc Treatment Hematology/Oncology Treatment, [place] [address] [place] [phone] Desirae, Chair 9 Hem Onc Scenery [address] [place] [address] 01/05/2025 9:00 AM EDT Imaging Radiology [facility] 1st Floor, [place] [address] [place] [phone] 01/05/2025 1:00 PM EDT Hem/Onc Treatment Hematology/Oncology Treatment, [place] [address] [place] [address] Desirae, Chair 9 Hem Onc Scenery [address] [place] [address] 01/06/2025 12:29 PM EDT Hospital Encounter OR [facility], Operating Room, [facility] - 4th Floor [address] [place] [phone] Renny Titus MD [address] [place] [address] 01/06/2025 12:29 PM EDT - 01/06/2025 1:28 PM EDT Surgery OR [facility], Operating Room, [facility] - 4th Floor [address] [place] [phone] Renny Titus MD [address] [place] [address] INSERT TUNNELED CENTRAL VENOUS ACCESS WITH SUBQ PORT 01/28/2025 10:20 AM EDT Office Visit Family Medicine [address] [place] [phone] Rafael Ochoa [address] [place] [address] 02/15/2025 10:40 AM EDT Office Visit Neurology [facility] Desirae [place] [address] [place] [address] Corey Smiley MD 100 [address] [facility] [place] [phone] 09/02/2025 10:00 AM EST Office Visit Family Medicine [address] [place] [phone] Marge Leal MD [address] [place] [address] [place] [address] Scheduled Procedures Name Priority Associated Diagnoses Date/Ti [...] COPD 11/17/2025 11/17/2024 CKD PHOS USE SMARTSET 48600 11/20/202510/31, 11/19/2024, 11/18/2024, Additional history exists CKD HGB USE SMARTSET 01853 01/03/202601/03, 01/03/2025, 12/31/2024, Additional history exists Colonoscopy 10/07/2026 10/07/2023, 010 05/2024, 07/25/2023, Additional history exists Colorectal Cancer Screening 10/07/2026 DTap/Tdap Vaccines (3 - Td or Tdap) 09/20/2029 09/20/2019, 01/23/2009 Pneumococcal Vaccine: 50+ Years Completed 07/27/2018, 09/24/2016, 01/23/2009 VITAMIN D LEVEL ONCE IN A LIFETIME-USE SMARTSET# 54291 Completed 06/27/2023, 03/01/2019, 03/26/2017, Additional history exists [...] this encounter Medical Devices Implanted Type Area Flight Engineer Helicopter Device Identifier Shelf Expiration Date Model / Serial / Lot Graft Allomax 1.0 6x16cm - [id number] - [id number] Implanted:Qty: 1 on 07/03/2015 by Jere Souza MD [place] [facility] [place]: Breast CR BARD : DAVOL 08/28/2019 [id number] / [id number] / [id number] Graft Allomax 1.0 6x16cm - [id number] - [id number] Implanted:Qty: 1 on 07/03/2015 by Jere Souza MD at [place] [facility] [place] Left: Breast CR BARD : DAVOL 04/28/2017 [id number] / [id number] / [id number] Implant Breast Li+ 350-2251bc - [id number] Implanted:Qty: 1 on 12/28/2015 by Jere Souza MD [place] [facility] [place]: Breast MENTOR DANYELLE 03/28/2016 350-2251BC / / [id number] Implant Breast Li+ 350-2251bc - [id number] Implanted:Qty: 1 on 12/28/2015 by Jere Souza MD at [place] [facility] [place]: Breast MENTOR DANYELLE 03/28/2016 [id number] / / [id number] documented as of this encounter Procedures Procedure Name Priority Date/Time Associated Diagnosis Comments DIFFERENTIAL, AUTOMATED STAT 01/03/2025 1:43 PM EDT 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) CBC STAT 01/03/2025 1:43 PM EDT 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) CBC STAT 01/03/2025 1:43 PM EDT 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) DIFFERENTIAL, TECHNOLOGIST REVIEW Routine 01/03/2025 1:43 PM EDT 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) documented in this encounter Results * (ABNORMAL) DIFFERENTIAL, TECHNOLOGIST REVIEW (01/03/2025 1:43 PM EDT) nRBCs 01/03/2025 2:13 PM EDT [facility] 56-02 Reactive Lymphocytes Present(A ) None Seen 01/03/2025 2:13 PM EDT [facility] 56-02 Giant PLTs Present(A ) None Seen 01/03/2025 2:13 PM EDT [facility] 56- Blood Venous blood specimen / Unknown Venipuncture / Unknown 01/03/2025 1:43 PM EDT 01/03/2025 1:43 PM EDT Logan Mancia MD LAB BLOOD ORDERABLES Fin al Result [facility] [address] [place] [address] * (ABNORMAL) DIFFERENTIAL, AUTOMATED (01/03/2025 1:43 PM EDT) WBC 2.05(L) 4.00 - 10.80 K/uL 01/03/2025 2:13 PM EDT [facility] 56-02 Neutrophils % 51.2 40.0 - 75.0 % 01/03/2025 2:13 PM EDT [facility] 56- Lymphocytes % 36.1 18.0 - 42.0 % 01/03/2025 2:13 PM EDT [facility] 56- Monocytes % 11.2(H) 1.0 - 11.0 % 01/03/2025 2:13 PM EDT [facility] 56- Eosinophils % 1.5 0.0 - 6.0 % 01/03/2025 2:13 PM EDT [facility] 56- Basophils % 0.0 0.0 - 2.0 % 01/03/2025 2:13 PM EDT [facility] 56- Absolute Neutrophils 1.05(L) 1.80 - 7.70 K/uL 01/03/2025 2:13 PM EDT [facility] 56- Absolute Lymphocytes 0.74(L) 1.00 - 4.80 K/ul 01/03/2025 2:13 PM EDT [facility] 56- Absolute Monocytes 0.23 0.00 - 1.10 K/uL 01/03/2025 2:13 PM EDT [facility] 56 Absolute Eosinophils 0.03 0.00 - 0.70 K/uL 01/03/2025 2:13 PM EDT [facility] 56- Absolute Basophils 0.00 0.00 - 0.20 K/uL 01/03/2025 2:13 PM EDT [facility] 56 Blood Venous blood specimen / Unknown Venipuncture / Unknown 01/03/2025 1:43 PM EDT 01/03/2025 1:43 PM EDT us Logan Mancia MD LAB BLOOD ORDERABLES Fin al Result [facility] 56- [address] [place] [address] * (ABNORMAL) CBC (01/03/2025 1:43 PM EDT) WBC 2.05(L) 4.00 - 10.80 K/uL 01/03/2025 2:13 PM EDT [facility] 56 RBC 4.60 3.85 - 5.15 M/uL 01/03/2025 2:13 PM EDT [facility] 56 HGB 12.2 12.0 - 15.3 g/dL 01/03/2025 2:13 PM EDT [facility] 56 HCT 38.4 36.0 - 45.2 % 01/03/2025 2:13 PM EDT [facility] 56 MCV 83.5 81.5 - 97.5 fL 01/03/2025 2:13 PM EDT [address] MCH 26.5 27.0 - 34.0 pg 01/03/2025 2:13 PM EDT [address] MCHC 31.8 32.0 - 36.0 g/dL 01/03/2025 2:13 PM EDT [address] RDW 15.2 11.5 - 15.5 % 01/03/2025 2:13 PM EDT [address] PLT 181 140 - 400 K/uL 01/03/2025 2:13 PM EDT [address] MPV 10.3 6.6 - 11.1 fL 01/03/2025 2:13 PM EDT [facility] 56 Blood Venous blood specimen / Unknown Venipuncture / Unknown 01/03/2025 1:43 PM EDT 01/03/2025 1:43 PM EDT Logan Mancia MD LAB BLOOD ORDERABLES Fin al Result [place] [address] [place] [address] documented in this encounter Visit Diagnoses Diagnosis Primary malignant [...] Directives occurred with: Not Discussed Care Teams Intake Clinician Relationship Specialty Start Date End Date Marge Leal MD [address] [place] [address] [place] [phone] PCP - General Family Medicine 12/31/24 documented as of this encounter
--- OUTSIDE RECORDS SUMMARY | 2025-01-12 18:00 | External Medical Summary | Summary of Care ---
Author Name Unknown Organization [facility] Address [address] [facility] [place] [address] Phone [phone] Care Team Providers Care Supervisor Elementary Education Name Role Phone Marge Leal MD Primary Care Provide r Reason for Visit * Reason Onset Date Comments Medication Refill 01/03/2025 Encounter Details Date Type Department Care Team (Late st Contact Info) Description 01/03/2025 Refill Hematology/Oncology Treatment, [place] 200 [place] [address] Logan Lilly MD 200 [place] [address] Primary malignant neoplasm of left upper lobe [...] Encounter - Elysia Troy RN - 01/03/2025 2:26 PM EDTSigned Prescriptions: Disp Refills Loratadine 10 MG Oral Tablet (Claritin) 20 Tab*0 Sig: Take 1 tablet daily x5 days starting the last day of chemotherapy (the day before pegfilgrastim injection)Authorizing Provider: LOGAN LILLY LORazepam 0.5 MG Oral Tablet (Ativan) 30 Tab*0 Sig: Take 1 Tablet by mouth at bedtime as needed for Anxiety or Sleep.Authorizing Provider: LOGAN LILLY * Telephone Encounter - Elysia Troy RN - 01/03/2025 1:50 PM EDT Pended claritin and ativan. documented in this encounter Plan of Treatment Upcoming Encounters Date Type Department Care Team (Latest Contact Info) Description 01/04/2025 8:00 AM EDT Hem/Onc Treatment Hematology/Oncology Treatment, [address] [phone] Desirae, Chair 9 Hem [address] [place] [address] 01/05/2025 9:00 AM EDT Imaging Radiology [address], [place] [address] [place] [phone] 01/05/2025 1:00 PM EDT Hem/Onc Treatment Hematology/Oncology Treatment, [address] [phone] Desirae, Chair 9 Hem Onc [facility] [address] [place] [address] [place] [address] 01/06/2025 12:29 PM EDT Hospital Encounter OR [facility], Operating Room, [facility] - 4th Floor [address] [place] [phone] Renny Titus MD 400 [facility] [place] [address] 01/06/2025 12:29 PM EDT - 01/06/2025 1:28 PM EDT Surgery OR [facility], Operating Room, [facility] - 4th Floor 400 [facility] [address] Renny Titus MD [address] [place] [address] [place] [address] INSERT TUNNELED CENTRAL VENOUS ACCESS WITH SUBQ PORT 01/28/2025 10:20 AM EDT Office Visit Family [address] [phone] Rafael Ochoa CRNP [address] [place] [address] [place] [address] 02/15/2025 10:40 AM EDT Office Visit Neurology [facility] 200 [facility] [place] [address] Corey Smiley MD [address] [place] [address] 09/02/2025 10:00 AM EST Office Visit Family [address] [phone] Marge Leal MD [address] [place] [address] [place] [address] Scheduled Procedures Name Priority Associated Diagnoses Date/Ti [...] COPD 11/17/2025 11/17/2024 CKD PHOS USE SMARTSET 71581 11/20/202510/31, 11/19/2024, 11/18/2024, Additional history exists CKD HGB USE SMARTSET 38686 01/03/202601/03, 01/03/2025, 12/31/2024, Additional history exists Colonoscopy 10/07/2026 10/07/2023, 05/2024, 07/25/2023, Additional history exists Colorectal Cancer Screening 10/07/2026 DTap/Tdap Vaccines (3 - Td or Tdap) 09/20/2029 09/20/2019, 01/23/2009 Pneumococcal Vaccine: 50+ Years Completed 07/27/2018, 09/24/2016, 01/23/2009 VITAMIN D LEVEL ONCE IN A LIFETIME-USE SMARTSET# 56639 Completed 06/27/2023, 03/01/2019, 03/26/2017, Additional history exists [...] this encounter Medical Devices Implanted Type Area Energy Consultant Device Identifier Shelf Expiration Date Model / Serial / Lot Graft Allomax 1.0 6x16cm - [id number] - [id number] Implanted:Qty: 1 on 07/03/2015 by Jere Souza MD [place] [facility] [place] Right: Breast CR BARD : DAVOL 08/28/2019 [id number] / [id number] / [id number] Graft Allomax 1.0 6x16cm - [id number] - [id number] Implanted:Qty: 1 on 07/03/2015 by Jere Souza MD at [place] [facility] [place] Left: Breast CR BARD : DAVOL 04/28/2017 [id number] / [id number] / [id number] Implant Breast Li+ 350-2251bc - [id number] Implanted:Qty: 1 on 12/28/2015 by Jere Souza MD at [place] [facility] [place] Left: Breast MENTOR DANYELLE 03/28/2016 350-2251BC / / [id number] Implant Breast Li+ 350-2251bc - [id number] Implanted:Qty: 1 on 12/28/2015 by Jere Souza MD at [place] [facility] [place] Right: Breast MENTOR DANYELLE 03/28/2016 350-2251BC / / [id number] documented as of this encounter Visit Diagnoses [...] Directives occurred with: Not Discussed Care Teams Supervisor Elementary Education Relationship Specialty Start Date End Date Marge Leal MD [address] [place] [address] [place] [address] PCP - General Family Medicine 12/31/24 documented as of this encounter
--- OUTSIDE RECORDS SUMMARY | 2025-01-12 18:00 | External Medical Summary | Summary of Care ---
Author Name Unknown Organization [facility] Address [address] [facility] [place] [address] Phone [phone] Care Team Providers Care Senior Java Architect Name Role Phone Marge Leal MD Primary Care Provide r Reason for Visit * Reason Onset Date Comments Order Request 01/03/2025 Encounter Details Date Type Department Care Team (Late st Contact Info) Description 01/03/2025 Telephone Hematology/Oncology Treatment, [place] 200 [place] [address] Logan Mancia MD 200 [place] [address] Order Request Allergies Active Allergy Reactions Criticality [...] 11/24/2024:Stage IB(pT2a, pN0, cM0) - Signed by eLe Gomez MD on 11/24/2024 Overview (03/15/2019): 6 [...] Patient is scheduled for port placement at [facility]- built day in for pegfilgrastim at [facility] withcycle 1 only. Precert: patient will need fulphila 01/06/25 at [facility] (built this as a separate plan), [...] 8:00 AM EDT Hem/Onc Treatment Hematology/Oncology Treatment, [place] [address] [facility] [place] [phone] Desirae, Chair 9 Hem Onc Scenery 200 [place] [address] 01/05/2025 9:00 AM EDT Imaging Radiology [facility] 1st Floor, [place] [address] [place] [phone] 01/05/2025 1:00 PM EDT Hem/Onc Treatment Hematology/Oncology Treatment, [place] [address] [place] [phone] Desirae, Chair 9 Hem Onc Scenery 200 [place] [address] 01/06/2025 12:29 PM EDT Hospital Encounter OR [facility], Operating Room, [facility] - 4th Floor [address] [place] [address] [place] [phone] Renny Titus MD 400 [facility] [place] [address] 01/06/2025 12:29 PM EDT - 01/06/2025 1:28 PM EDT Surgery OR [facility], Operating Room, [facility] - 4th Floor [address] [place] [address] Renny Titus MD 400 [facility] [place] [address] INSERT TUNNELED CENTRAL VENOUS ACCESS WITH SUBQ PORT 01/28/2025 10:20 AM EDT Office Visit Family [address] [phone] Rafael Ochoa CRNP [address] [place] [address] [place] [address] 02/15/2025 10:40 AM EDT Office Visit Neurology [facility] 200 [place] [address] Corey Smiley MD [address] [place], [place] [phone] 09/02/2025 10:00 AM EST Office Visit Family [address] [phone] Marge Leal MD [address] [place] [address] [place] [address] Scheduled Procedures Name Priority Associated Diagnoses Date/Ti [...] COPD 11/17/2025 11/17/2024 CKD PHOS USE SMARTSET 37062 11/20/202510/31, 11/19/2024, 11/18/2024, Additional history exists CKD HGB USE SMARTSET 02247 01/03/202601/03, 01/03/2025, 12/31/2024, Additional history exists Colonoscopy 10/07/2026 10/07/2023, 05/2024, 07/25/2023, Additional history exists Colorectal Cancer Screening 10/07/2026 DTap/Tdap Vaccines (3 - Td or Tdap) 09/20/2029 09/20/2019, 01/23/2009 Pneumococcal Vaccine: 50+ Years Completed 07/27/2018, 09/24/2016, 01/23/2009 VITAMIN D LEVEL ONCE IN A LIFETIME-USE SMARTSET# 15454 Completed 06/27/2023, 03/01/2019, 03/26/2017, Additional history exists [...] this encounter Medical Devices Implanted Type Area Creel Selector Device Identifier Shelf Expiration Date Model / Serial / Lot Graft Allomax 1.0 6x16cm - [id number] - [id number] Implanted:Qty: 1 on 07/03/2015 by Jere Souza MD [place] [facility] [place]: Breast CR BARD : DAVOL 08/28/2019 [id number] / [id number] / [id number] Graft Allomax 1.0 6x16cm - [id number] - [id number] Implanted:Qty: 1 on 07/03/2015 by Jere Souza MD at [facility] Left: Breast CR BARD : DAVOL 04/28/2017 [id number] / [id number] / [id number] Implant Breast Li+ 350-2251bc - [id number] Implanted:Qty: 1 on 12/28/2015 by Jere Souza MD at [place] [facility] [place]: Breast MENTOR DANYELLE 03/28/2016 350-2251BC / / [id number] Implant Breast Li+ 350-2251bc - [id number] Implanted:Qty: 1 on 12/28/2015 by Jere Souza MD at [place] [facility] [place]: Breast MENTOR DANYELLE 03/28/2016 350-2251BC / / [id number] documented as of this encounter Visit Diagnoses [...] Directives occurred with: Not Discussed Care Teams Senior Java Architect Relationship Specialty Start Date End Date Marge Leal MD [address] [place] [address] [place] [address] PCP - General Family Medicine 12/31/24 documented as of this encounter
--- OUTSIDE RECORDS SUMMARY | 2025-01-12 18:01 | External Medical Summary ---
Author Name Unknown Address Unknown Organization K01:[facility] [place] [address] [place] [address] Laboratory Report Ordering Provider Test Date Status [id number] 12/31/2024 10:19:06 Final Observation Date Value Abnormality Reference (Units) Status Hepatitis B virus surface Ab [Units/volume] in Serum or Plasma by Immunoassay 12/31/2024 10:19:06 <3.5 (mIU/mL) Final Hepatitis B virus surface Ab [Presence] in Serum by Immunoassay 12/31/2024 10:19:06 Negative Final HEPATITIS B SURFACE ANTIBODY, INTERPRETATION 12/31/2024 10:19:06 NOT immune to Hepatitis B Virus Final POSITIVE: >=11.5 mIU/mL
INDETERMINATE: 8.5-<11.5 mIU/mL
NEGATIVE: <8.5 mIU/mL Performing Location [facility] [place] [facility] [place] [address]
--- OUTSIDE RECORDS SUMMARY | 2025-01-12 18:01 | External Medical Summary | Summary of Care ---
Author Name Unknown Organization [facility] Address [address] [facility] [place] [address] Phone [phone] Care Team Providers Care Senior Power Scheduler Name Role Phone Marge Leal MD Primary Care Provide r Reason for Visit * Reason Comments Outpatient Testing Encounter Details Date Type Department Care Team (Late st Contact Info) Description 12/31/2024 10:30 AM EDT Laboratory Laboratory [address] [place] [phone] [place], Lab [address] [place] [address] MyCode Research Other*[id number]; Malignant neoplasm of lung, unspecified laterality, unspecified part of lung (HCC) Allergies Active Allergy Reactions Criticality Noted Date Comments Varenicline Neuro complications (Please comment) Low 08/23/2019 Vivid nightmares Lisinopril Edema face/lips/tongue High 03/29/2014 Metoprolol Tartrate Edema face/lips/tongue,Other (Please comment) High 05/07/2019 Facial swelling, airway closing up documented as of this encounter (statuses as of 12/31/2024) Medications aspirin 81 MG chewable tabletIndication s:Asymptomatic [...] as of this encounter (statuses as of 12/31/2024) Active Problems Problem Noted Date Diagnosed Date Iron deficiency anemia 05/19/2020 Oxygen desaturation during [...] as of this encounter (statuses as of 12/31/2024) Resolved Problems Problem Noted Date Diagnosed Date [...] as of this encounter (statuses as of 12/31/2024) Immunizations Name Administration Dates Next Due Pneumococcal [...] PM EDT Pt Ed by Nurse Hematology/Oncology Ines [place] [phone] Desirae Nurse Hem Onc [place] [address] [place] [address] 01/03/2025 2:00 PM EDT Hem/Onc Treatment Hematology/Oncology Treatment, [place] [phone] 01/04/2025 8:00 AM EDT Hem/Onc Treatment Hematology/Oncology Treatment, [place] [phone] Desirae, Chair 9 Hem Onc Scenery [address] [facility] [place] [address] 01/05/2025 9:00 AM EDT Imaging Radiology [facility] 1st [facility], [place] [address] [place] [phone] 01/05/2025 1:00 PM EDT Hem/Onc Treatment Hematology/Oncology Treatment, [place] [address] [facility] [place] [phone] Desirae, Chair 9 Hem Onc Scenery 200 [facility] [place] [address] 01/06/2025 12:29 PM EDT Hospital Encounter OR [facility], Operating Room, [facility] - 4th Floor [address] [place] [phone] Renny Titus MD [address] [place] [address] 01/06/2025 12:29 PM EDT - 01/06/2025 1:28 PM EDT Surgery OR [facility], Operating Room, [facility] - [facility] Floor 400 [place] [phone] Renny Titus MD [address] [place] [address] INSERT TUNNELED CENTRAL VENOUS ACCESS WITH SUBQ PORT 01/28/2025 10:20 AM EDT Office Visit Family Medicine [address] [place] [phone] Rafael Ochoa CRNP [address] [place] [address] [place] [address] 02/15/2025 10:40 AM EDT Office Visit Neurology Scene Desriae [place] [address] [place] [address] Corey Smiley MD [address] [place] [address] 09/02/2025 10:00 AM EST Office Visit [address] [phone] Marge Leal MD [address] [place] [address] [place] [address] Pending Results Name Type Priority Associated Diagnoses Date /Time MYCODE SUBSEQUENT ADULT Lab Routine MyCode Research Other*[id number] 12/31/2024 10:19 AM EDT HEPATITIS B SURFACE ANTIBODY Lab STAT Malignant neoplasm of lung, unspecified laterality, unspecified part of lung (HCC) 12/31/2024 10:19 AM EDT HEPATITIS B SURFACE ANTIGEN Lab STAT Malignant neoplasm of lung, unspecified laterality, unspecified part of lung (HCC) 12/31/2024 10:19 AM EDT HEPATITIS B CORE ANTIBODIES IGG AND IGM Lab STAT Malignant neoplasm of lung, unspecified laterality, unspecified part of lung (HCC) 12/31/2024 10:19 AM EDT CBC WITH WBC DIFFERENTIAL Lab STAT Malignant neoplasm of lung, unspecified laterality, unspecified part of lung (HCC) 12/31/2024 10:19 AM EDT COMPREHENSIVE METABOLIC PANEL Lab STAT Malignant neoplasm of lung, unspecified laterality, unspecified part of lung (HCC) 12/31/2024 10:19 AM EDT MYCODE SST1 Lab Routine MyCode Research Other*[id number] 12/31/2024 10:19 AM EDT MYCODE SST2 Lab Routine MyCode Research Other*[id number] 12/31/2024 10:19 AM EDT CBC Lab STAT Malignant neoplasm of lung, unspecified laterality, unspecified part of lung (HCC) 12/31/2024 10:19 AM EDT DIFFERENTIAL, AUTOMATED Lab STAT Malignant neoplasm of lung, unspecified laterality, unspecified part of lung (HCC) 12/31/2024 10:19 AM EDT Scheduled Procedures Name Priority Associated Diagnoses Date/Ti me INSERT TUNNELED CENTRAL VENOUS ACCESS WITH SUBQ PORT Malignant neoplasm of lung, unspecified laterality, unspecified part of lung (HCC) 01/06/2025 12:29 PM EDT COLONOSCOPY FLEXIBLE PROXIMAL DIAGNOSTIC Recall Constipation, unspecified constipation type Health Maintenance Due Date Last Done Comments DISCUSS TOBACCO CESSATION (REFER TO SMARTSET #4419) 1950 Depression Screening 1963 Alpha-1 Antitrypsin 1969 Cologuard 1996 Fecal Occult Blood Test 1996 Sigmoidoscopy 1996 *BISPHONATE OR OTHER ACCEPTABLE MEDICATION NEEDED FOR OSTEOPOROSIS (REFER TO SMARTSET #1146) 10/28/2016 Adult Wellness Visit 2017 Zoster Vaccines (3 of 3) 11/15/2019 09/20/2019, 06/29 DXA Scan 09/04/2023 09/04/2021, 10/24/2016 COVID-19 Vaccine ( season) 2024 Albumin/Creatinine Ratio 04/13/2025 024, 12/25/2022, 09/03/2021, Additional history exists GFR 05/20/2025 11/20/2024, 10/31, 11/18/2024, Additional history exists Influenza Vaccine (FLU shot) (Season Ended) 2025 08/15/2020, 07/07/2019, 07/27/2018, Additional history exists O2 ASSESSMENT COMPLETED IN PAST YEAR FOR COPD 11/17/2025 11/17/2024 CKD HGB USE SMARTSET 20373 11/18/202511/18, 10/29/2024, 10/29/2024, Additional history exists CKD PHOS USE SMARTSET 95764 11/20/202510/31, 11/19/2024, 11/18/2024, Additional history exists Colonoscopy 10/07/2026 10/07/2023, 05/2024, 07/25/2023, Additional history exists Colorectal Cancer Screening 10/07/2026 DTap/Tdap Vaccines (3 - Td or Tdap) 09/20/2029 09/20/2019, 01/23/2009 Pneumococcal Vaccine: 50+ Years Completed 07/27/2018, 09/24/2016, 01/23/2009 VITAMIN D LEVEL ONCE IN A LIFETIME-USE SMARTSET# 97973 Completed 06/27/2023, 03/01/2019, 03/26/2017, Additional history exists [...] this encounter Medical Devices Implanted Type Area Agricultural Produce Packer Device Identifier Shelf Expiration Date Model / Serial / Lot Graft Allomax 1.0 6x16cm - [id number] - [id number] Implanted:Qty: 1 on 07/03/2015 [place] Jere Souza [place] [facility] [place] Breast CR BARD : DAVOL 08/28/2019 [id number] / [id number] / [id number] Graft Allomax 1.0 6x16cm - [id number] - [id number] Implanted:Qty: 1 on 07/03/2015 by Jere Souza MD [place] [facility] [place] Breast CR BARD : DAVOL 04/28/2017 [id number] / [id number] / [id number] Implant Breast Li+ 350-2251bc - [id number] Implanted:Qty: 1 on 12/28/2015 by Jere Souza MD [place] [facility] [place] Breast MENTOR DANYELLE 03/28/2016 [id number] / / [id number] Implant Breast Li+ 350-2251bc - [id number] Implanted:Qty: 1 on 12/28/2015 by Jere Souza MD [place] [facility] [place] Breast MENTOR DANYELLE 03/28/2016 [id number] / / [id number] documented as of this encounter Visit Diagnoses Diagnosis MyCode Research Other*[id number] Malignant neoplasm of lung, unspecified laterality, unspecified [...] occurred with: Not Discussed Care Teams Senior Power Scheduler Relationship Specialty Start Date End Date Marge Leal MD [address] [place] [address] [place] [address] PCP - General Family Medicine 12/31/24 documented as of this encounter
--- OUTSIDE RECORDS SUMMARY | 2025-01-12 18:01 | External Medical Summary ---
Author Name Unknown Address Unknown Organization K09:[facility] [place] [address] Laboratory Report Ordering Provider Test Date Status MAXX LLOYD 01/03/2025 13:43:13 Final Observation Date Value Abnormality Reference (Units ) Status SYNC LEUKOCYTES IN BLOOD BY AUTOMATED COUNT 01/03/2025 13:43:13 2.05 Below low normal 4.00-10.80 (K/uL) Final Segs 01/03/2025 13:43:13 51.2 40.0-75.0 (%) Final Lymphs % 01/03/2025 13:43:13 36.1 18.0-42.0 (%) Final Monos 01/03/2025 13:43:13 11.2 Above high normal 1.0-11.0 (%) Final Eosinophils 01/03/2025 13:43:13 1.5 0.0-6.0 (%) Final Basos 01/03/2025 13:43:13 0.0 0.0-2.0 (%) Final Absolute Segs 01/03/2025 13:43:13 1.05 Below low normal 1.80-7.70 (K/uL) Final Lymphs, absolute 01/03/2025 13:43:13 0.74 Below low normal 1.00-4.80 (K/ul) Final Monos, Abs 01/03/2025 13:43:13 0.23 0.00-1.10 (K/uL) Final Eos, Abs 01/03/2025 13:43:13 0.03 0.00-0.70 (K/uL) Final Basos, Abs 01/03/2025 13:43:13 0.00 0.00-0.20 (K/uL) Final Performing Location [facility] [place] [address]
--- OUTSIDE RECORDS SUMMARY | 2025-01-12 18:01 | External Medical Summary ---
Author Name Unknown Address Unknown Organization K[facility] [place] [address] [place] [address] Laboratory Report Ordering Provider Test Date Status MAXX LLOYD 12/31/2024 10:19:06 Final Observation Date Value Abnormality Reference (Units ) Status Hep B surface Ag 12/31/2024 10:19:06 Negative Neg ative Final Performing Location [facility] - [address] [place] [address]
--- OUTSIDE RECORDS SUMMARY | 2025-01-12 18:01 | External Medical Summary ---
Author Name Unknown Address Unknown Organization K09:[facility] [place] [address] Laboratory Report Ordering Provider Test Date Status MAXX LLOYD 01/03/2025 13:43:13 Final Observation Date Value Abnormality Reference (Units ) Status WBC, Total 01/03/2025 13:43:13 2.05 Below low normal 4. 00-10.80 (K/uL) Final RBC 01/03/2025 13:43:13 4.60 3.85-5.15 (M/uL) Final Hemoglobin 01/03/2025 13:43:13 12.2 12.0-15.3 (g/dL) Final HCT 01/03/2025 13:43:13 38.4 36.0-45.2 (%) Final MCV 01/03/2025 13:43:13 83.5 81.5-97.5 (fL) Final MCH 01/03/2025 13:43:13 26.5 27.0-34.0 (pg) Final MCHC 01/03/2025 13:43:13 31.8 32.0-36.0 (g/dL) Final RDW 01/03/2025 13:43:13 15.2 11.5-15.5 (%) Final Platelets 01/03/2025 13:43:13 181 140-400 (K /uL) Final MPV 01/03/2025 13:43:13 10.3 6.6-11.1 ( fL) Final Performing Location [facility] [address]
--- OUTSIDE RECORDS SUMMARY | 2025-01-12 18:01 | External Medical Summary ---
Author Name Unknown Address Unknown Organization K01:[facility]ATORY [facility] [place] [address] [facility] [place] [address] Laboratory Report Ordering Provider Test Date Status MAXX LLOYD 12/31/2024 10:19:06 Final Observation Date Value Abnormality Reference (Units ) Status BUN 12/31/2024 10:19:06 20 6-20 (mg/dL) Final Creatinine 12/31/2024 10:19:06 1.2 Above high normal 0.5-1.0 (mg/dL) Final Glomerular filtration rate/1.73 sq M.predicted [Volume Rate/Area] in Serum, Plasma or Blood by Creatinine-based formula (CKD-EPI) 12/31/2024 10:19:06 47 Below low normal >=60 (mL/min) Final eGFR is calculated based on the CKD-EPI 2020 equation. Sodium 12/31/2024 10:19:06 137 135-146 (m mol/L) Final Potassium 12/31/2024 10:19:06 4.2 3.5-5.1 (m mol/L) Final Cl 12/31/2024 10:19:06 98 98-107 (mm ol/L) Final CO2 12/31/2024 10:19:06 25 22-32 (mmo l/L) Final Anion gap 12/31/2024 10:19:06 14 7-15 (mmol /L) Final Glucose 12/31/2024 10:19:06 100 70-120 (mg /dL) Final Albumin 12/31/2024 10:19:06 4.6 3.8-5.0 (g /dL) Final AST (Aspartate aminotransferase) 12/31/2024 10:19:06 22 10-35 (U/L) Final Alk Phos 12/31/2024 10:19:06 124 35-130 (U/ L) Final Bilirubin, Total 12/31/2024 10:19:06 0.4 <=1 .2 (mg/dL) Final Calcium 12/31/2024 10:19:06 9.6 8.4-10.2 ( mg/dL) Final Protein 12/31/2024 10:19:06 7.2 6.0-8.3 (g /dL) Final ALT (Alanine aminotransferase) 12/31/2024 10:19:06 15 10-35 (U/L) Final Performing Location LAB[facility]ORY [facility] [place] [address] [facility] [address]
--- OUTSIDE RECORDS SUMMARY | 2025-01-12 18:01 | External Medical Summary ---
Author Name Unknown Address Unknown Organization K01:LABORATORY [facility] [place] - [address] [place] [address] Laboratory Report Ordering Provider Test Date Status MAXX LLOYD 12/31/2024 10:19:06 Final Observation Date Value Abnormality Reference (Units ) Status Hepatitis B virus core Ab [Presence] in Serum 12/31/2024 10:19:06 Negative Negative Final Performing Location LABORATORY [facility] [place] - [address] [place] [address]
--- OUTSIDE RECORDS SUMMARY | 2025-01-12 18:01 | External Medical Summary ---
Author Name Unknown Address Unknown Organization K01:[facility] [place] [facility] [address] [facility] [address] Laboratory Report Ordering Provider Test Date Status MAXX LLOYD 12/31/2024 10:19:06 Final Observation Date Value Abnormality Reference (Units ) Status WBC, Total 12/31/2024 10:19:06 2.17 Below low normal 4.00-10.80 (K/uL) Final RBC 12/31/2024 10:19:06 5.05 3.85-5.15 (M/uL) Final Hemoglobin 12/31/2024 10:19:06 13.1 12.0-15.3 (g/dL) Final HCT 12/31/2024 10:19:06 42.5 36.0-45.2 (%) Final MCV 12/31/2024 10:19:06 84.2 81.5-97.5 (fL) Final MCH 12/31/2024 10:19:06 25.9 27.0-34.0 (pg) Final MCHC 12/31/2024 10:19:06 30.8 32.0-36.0 (g/dL) Final RDW 12/31/2024 10:19:06 15.3 11.5-15.5 (%) Final Platelets 12/31/2024 10:19:06 267 140-400 (K/uL) Final MPV 12/31/2024 10:19:06 10.4 6.6-11.1 (fL) Final Nucleated erythrocytes/100 leukocytes [Ratio] in Blood by Automated count 12/31/2024 10:19:06 0 <=0 (/100 WBCs) Final Performing Location [facility] [place] [address] [place] [address]
--- OUTSIDE RECORDS SUMMARY | 2025-01-12 18:01 | External Medical Summary ---
Author Name Unknown Address Unknown Organization K01:LABORATORY [facility] [place] - [address] [facility] [address] [facility] [address] Laboratory Report Ordering Provider Test Date Status BRIANNA RINCON 12/31/2024 10:19:06 Final Observation Date Value Abnormality Reference (Units ) Status MYCODE SPECIMEN-SST 12/31/2024 10:19:06 Freezing of extracted DNA, whole blood and/or serum. Final Performing Location LABORATORY [facility] [place] - [address] [facility] [address]
--- OUTSIDE RECORDS SUMMARY | 2025-01-12 18:01 | External Medical Summary ---
Author Name Unknown Address Unknown Organization K01:[facility]ATORY [facility] [place] - [address] [facility] [address] Laboratory Report Ordering Provider Test Date Status MAXX LLOYD 12/31/2024 10:19:06 Final Observation Date Value Abnormality Reference (Units ) Status SYNC LEUKOCYTES IN BLOOD BY AUTOMATED COUNT 12/31/2024 10:19:06 2.17 Below low normal 4.00-10.80 (K/uL) Final Segs 12/31/2024 10:19:06 41.4 40.0-75.0 (%) Final Lymphs % 12/31/2024 10:19:06 38.7 18.0-42.0 (%) Final Monos 12/31/2024 10:19:06 15.7 Above high normal 1.0-11.0 (%) Final Eosinophils 12/31/2024 10:19:06 3.2 0.0-6.0 (%) Final Basos 12/31/2024 10:19:06 0.5 0.0-2.0 (%) Final Immature Granulocyte, Percent 12/31/2024 10:19:06 0.5 0.0-2.0 (%) Final Absolute Segs 12/31/2024 10:19:06 0.90 Below low normal 1.80-7.70 (K/uL) Final Lymphs, absolute 12/31/2024 10:19:06 0.84 Below low normal 1.00-4.80 (K/ul) Final Monos, Abs 12/31/2024 10:19:06 0.34 0.00-1.10 (K/uL) Final Eos, Abs 12/31/2024 10:19:06 0.07 0.00-0.70 (K/uL) Final Basos, Abs 12/31/2024 10:19:06 0.01 0.00-0.20 (K/uL) Final Immature Granulocytes, Number 12/31/2024 10:19:06 0.01 0.00-0.20 (K/uL) Final Performing Location LABORATORY [facility] [place] - [facility] [place] [address]
--- OUTSIDE RECORDS SUMMARY | 2025-01-12 18:01 | External Medical Summary | Summary of Care ---
Author Name Unknown Organization [facility] Address [address] [facility] [place] [address] Phone [phone] Care Team Providers Care Helicopter Utility Aircrewman Name Role Phone Marge Leal MD Primary Care Provide r Reason for Visit * Reason Onset Date Comments Med Request 12/30/2024 Encounter Details Date Type Department Care Team (Late st Contact Info) Description 12/30/2024 Telephone Family Medicine [address] [place] [phone] Marge Leal MD [address] [place] [address] [place] [address] Med Request Allergies Active [...] of Assessment Author No 11/17/2024 7:33 PM rBooklyn Mendez RN * Are you blind or [...] encounter Miscellaneous Notes * Telephone Encounter - Rafael Ochoa CRNP [...] EDT I have not seen her since 2018. Needs appointment or request sent to someone [...] September 2024. Joanie can be contacted at [phone] documented in this encounter Plan of Treatment Upcoming Encounters Date Type Department Care Team (Latest Contact Info) Description 01/03/2025 1:00 PM EDT Pt Ed by Nurse Hematology/Oncology Ines [place] [facility] [place] [phone] Nurse Desirae Hem Onc [place] [address] [address] [address] 01/03/2025 2:00 PM EDT Hem/Onc Treatment Hematology/Oncology Treatment, [address] [place] [phone] 01/04/2025 8:00 AM EDT Hem/Onc Treatment Hematology/Oncology Treatment, [address] [place] [phone] Desirae, Chair 9 Hem Onc [facility] [address] [place] [address] 01/05/2025 9:00 AM EDT Imaging Radiology [facility] 1st [facility] [place] [address] [place] [phone] 01/05/2025 1:00 PM EDT Hem/Onc Treatment Hematology/Oncology Treatment, [place] [address] [facility] [address] [facility] [place] [phone] Desirae, Chair 9 Hem Onc [facility] [address] [facility] [place] [address] 01/06/2025 12:29 PM EDT Hospital Encounter OR [facility], Operating Room, [facility] - 4th Floor [address] [place] [phone] Renny Titus MD [address] [place] [address] 01/06/2025 12:29 PM EDT - 01/06/2025 1:28 PM EDT Surgery OR [facility], Operating Room, [facility] - 4th Floor [address] [place] [phone] Renny Titus MD [address] [place] [address] INSERT TUNNELED CENTRAL VENOUS ACCESS WITH SUBQ PORT 01/28/2025 10:20 AM EDT Office Visit [address] [phone] Rafael Ochoa CRNP [address] [place] [address] [place] [address] 02/15/2025 10:40 AM EDT Office Visit Neurology [facility] Duran [place]ill [address] [place] [address] Corey Smiley MD [address] [place], [place] [phone] 09/02/2025 10:00 AM EST Office Visit Family [address] [phone] Marge Leal MD [address] [place] [address] [place] [address] Scheduled Procedures Name Priority Associated Diagnoses Date/Ti me INSERT TUNNELED CENTRAL VENOUS ACCESS WITH SUBQ PORT Malignant neoplasm of lung, unspecified laterality, unspecified part of lung (HCC) 01/06/2025 12:29 PM EDT COLONOSCOPY FLEXIBLE PROXIMAL DIAGNOSTIC Recall Constipation, unspecified constipation type Health Maintenance Due Date Last Done Comments DISCUSS TOBACCO CESSATION (REFER TO SMARTSET #5382) 1950 Depression Screening 1962 Alpha-1 Antitrypsin 1969 [...] COPD 11/17/2025 11/17/2024 CKD HGB USE SMARTSET 36608 11/18/202511/18, 10/29/2024, 10/29/2024, Additional history exists CKD PHOS USE SMARTSET 74226 11/20/202510/31, 11/19/2024, 11/18/2024, Additional history exists Colonoscopy 10/07/2026 10/07/2023, 05/2024, 07/25/2023, Additional history exists Colorectal Cancer Screening 10/07/2026 DTap/Tdap Vaccines (3 - Td or Tdap) 09/20/2029 09/20/2019, 01/23/2009 Pneumococcal Vaccine: 50+ Years Completed 07/27/2018, 09/24/2016, 01/23/2009 VITAMIN D LEVEL ONCE IN A LIFETIME-USE SMARTSET# 64522 Completed 06/27/2023, 03/01/2019, 03/26/2017, Additional history exists [...] this encounter Medical Devices Implanted Type Area Dust Collector Device Identifier Shelf Expiration Date Model / Serial / Lot Graft Allomax 1.0 6x16cm - [id number] - [id number] Implanted:Qty: 1 on 07/03/2015 by Jere Souza MD at [place] [facility] [place] Right: Breast CR BARD : DAVOL 08/28/2019 [id number] / [id number] / [id number] Graft Allomax 1.0 6x16cm - [id number] - [id number] Implanted:Qty: 1 on 07/03/2015 by Jere Souza MD at [place] [facility] [place] Left: Breast CR BARD : DAVOL 04/28/2017 [id number] / [id number] / [id number] Implant Breast Li+ 350-2251bc - [id number] Implanted:Qty: 1 on 12/28/2015 by Jere Souza MD at [place] [facility] [place] Left: Breast MENTOR DANYELLE 03/28/2016 [id number] / / [id number] Implant Breast Li+ 350-2251bc - [id number] Implanted:Qty: 1 on 12/28/2015 by Jere Souza MD at [place] [facility] [place] Right: Breast MENTOR DANYELLE 03/28/2016 [id number] / / [id number] documented as of this encounter Advance Directives [...] Directives occurred with: Not Discussed Care Teams Helicopter Utility Aircrewman Relationship Specialty Start Date End Date Marge Leal MD [address] [place] [address] [place] [address] PCP - General Family Medicine 12/31/24 documented as of this encounter
--- OUTSIDE RECORDS SUMMARY | 2025-01-12 18:01 | External Medical Summary | Summary of Care ---
Author Name Unknown Organization [facility] Address [address] [facility] [place] [address] Phone [phone] Care Team Providers Care Art Editor Name Role Phone Marge Leal MD Primary Care Provide r Reason for Visit * Reason Onset Date Comments Order Request 01/03/2025 Encounter Details Date Type Department Care Team (Late st Contact Info) Description 01/03/2025 Telephone Hematology/Oncology Treatment, [place] 200 [place] [address] Logan Mancia MD 200 [place] [address] Order Request Allergies Active Allergy Reactions Criticality [...] Patient is scheduled for port placement at [facility]- built day in for pegfilgrastim at [facility] withcycle 1 only. Precert: patient will need fulphila 01/06/25 at [facility] (built this as a separate plan), [...] 8:00 AM EDT Hem/Onc Treatment Hematology/Oncology Treatment, [place] [address] [facility] [place] [phone] Desirae, Chair 9 Hem Onc Scenery 200 [facility] [place] [address] 01/05/2025 9:00 AM EDT Imaging Radiology [facility] 1st Floor, [place] [address] [place] [phone] 01/05/2025 1:00 PM EDT Hem/Onc Treatment Hematology/Oncology Treatment, [place] [address] [place] [phone] Desirae, Chair 9 Hem Onc Scenery 200 [facility] [place] [address] 01/06/2025 12:29 PM EDT Hospital Encounter OR [facility], Operating Room, [facility] - 4th Floor [address] [place] [address] [place] [phone] Renny Titus MD [facility] [place] [address] 01/06/2025 12:29 PM EDT - 01/06/2025 1:28 PM EDT Surgery OR [facility], Operating Room, [facility] - 4th Floor [address] [place] [address] Renny Titus MD 400 [facility] [place] [address] INSERT TUNNELED CENTRAL VENOUS ACCESS WITH SUBQ PORT 01/28/2025 10:20 AM EDT Office Visit Family [address] [phone] Rafael Ochoa CRNP [address] [place] [address] [place] [address] 02/15/2025 10:40 AM EDT Office Visit Neurology [facility] 200 [place] [address] Corey Smiley MD [address] [place], [place] [phone] 09/02/2025 10:00 AM EST Office Visit Family [address] [phone] Marge Leal MD [address] [place] [address] [place] [address] Scheduled Procedures Name Priority Associated Diagnoses Date/Ti [...] COPD 11/17/2025 11/17/2024 CKD PHOS USE SMARTSET 43733 11/20/202510/31, 11/19/2024, 11/18/2024, Additional history exists CKD HGB USE SMARTSET 52629 01/03/202601/03, 01/03/2025, 12/31/2024, Additional history exists Colonoscopy 10/07/2026 10/07/2023, 05/2024, 07/25/2023, Additional history exists Colorectal Cancer Screening 10/07/2026 DTap/Tdap Vaccines (3 - Td or Tdap) 09/20/2029 09/20/2019, 01/23/2009 Pneumococcal Vaccine: 50+ Years Completed 07/27/2018, 09/24/2016, 01/23/2009 VITAMIN D LEVEL ONCE IN A LIFETIME-USE SMARTSET# 21851 Completed 06/27/2023, 03/01/2019, 03/26/2017, Additional history exists [...] this encounter Medical Devices Implanted Type Area Alarm Mechanism Adjuster Device Identifier Shelf Expiration Date Model / Serial / Lot Graft Allomax 1.0 6x16cm - [id number] - [id number] Implanted:Qty: 1 on 07/03/2015 [place] [facility] [place] Breast CR BARD : DAVOL 08/28/2019 [id number] / [id number] / [id number] Graft Allomax 1.0 6x16cm - [id number] - [id number] Implanted:Qty: 1 on 07/03/2015 by Jere Souza MD at [facility] Left: Breast CR BARD : DAVOL 04/28/2017 [id number] / [id number] / [id number] Implant Breast Li+ 350-2251bc - [id number] Implanted:Qty: 1 on 12/28/2015 by Jere Souza [place] [facility] [place] Breast MENTOR DANYELLE 03/28/2016 [id number] / / [id number] Implant Breast Li+ 350-2251bc - [id number] Implanted:Qty: 1 on 12/28/2015 by Jere Souza [place] [facility] [place] Breast MENTOR DANYELLE 03/28/2016 [id number] / / [id number] documented as of this encounter Visit Diagnoses [...] Directives occurred with: Not Discussed Care Teams Art Editor Relationship Specialty Start Date End Date Marge Leal MD [address] [place] [address] [place] [address] PCP - General Family Medicine 12/31/24 documented as of this encounter
--- OUTSIDE RECORDS SUMMARY | 2025-01-12 18:01 | External Medical Summary | Summary of Care ---
Author Name Unknown Organization [facility] Address [address] [facility] [address] Phone [phone] Care Team Providers Care Membership Manager Name Role Phone Marge Leal MD Primary Care Provide r Reason for Visit * Reason Onset Date Comments Scheduling 12/31/2024 Encounter Details Date Type Department Care Team (Late st Contact Info) Description 12/31/2024 Telephone Hematology/Oncology, [facility] 400 [place] [address] Logan Mancia MD 200 [place] [address] Scheduling Allergies Active Allergy Reactions Criticality Noted Date [...] encounter Miscellaneous Notes * Telephone Encounter - Aleshia Carlos, KAYLEE - 12/31/2024 12:05 PM EDT Spoke to patient to schedule the Mediport Insertion for 01/06 at [facility] Patients Zofran before the procedure due to nausea with sedation and to stop the Diuretics morning of he procedure Patient identified by: name Person taught: Patient METHOD: Lecture-telephone interview PATIENT INSTRUCTIONS GIVEN: - General Preoperative Instructions Reviewed - NPO Instructions Reviewed, pt to stop eating 8 hours prior to procedure and stop drinking 2 hoursprior to procedure. -Log Loader required Location and check-in instructions Verbalizes understanding of education: Yes Procedure date at time of Imaging Encounter: 01/06 What procedure is patient having? Mediport Laterality confirmed as Not Applicable Does the patient have a yellow bar? did not The Patient was given the opportunity to ask questions concerning the procedure. Signature: KAYLEE Vicente 12/31/2024 documented in this encounter Plan of Treatment Upcoming Encounters Date Type Department Care Team (Latest Contact Info) Description 01/03/2025 1:00 PM EDT Pt Ed by Nurse Hematology/Oncology [place] [address] [place] [phone] Desirae Nurse Hem Onc [address] [place] [address] 01/03/2025 2:00 PM EDT Hem/Onc Treatment Hematology/Oncology Treatment, [address] [phone] 01/04/2025 8:00 AM EDT Hem/Onc Treatment Hematology/Oncology Treatment [address] [place] [address] Desirae, Chair 9 Hem On[address] [place] [address] 01/05/2025 9:00 AM EDT Imaging Radiology [facility] 1st Floor, [place] [address] [place] [phone] 01/05/2025 1:00 PM EDT Hem/Onc Treatment Hematology/Oncology Treatment, [address] [place] [phone] Desirae, Chair 9 Hem On[address] [place] [address] 01/06/2025 12:29 PM EDT Hospital Encounter OR [facility], Operating Room, [facility] - 4th Floor 400 [place] [address] Renny Titus MD 400 [place] [address] 01/06/2025 12:29 PM EDT - 01/06/2025 1:28 PM EDT Surgery [facility], Operating Room, [facility] - 4th Floor 400 [place] [phone] Renny Titus MD 400 [facility] [place] [address] INSERT TUNNELED CENTRAL VENOUS ACCESS WITH SUBQ PORT 01/28/2025 10:20 AM EDT Office Visit Family Medicine [address] [phone] Rafael Ochoa CRNP [address] [place] [address] [place] [address] 02/15/2025 10:40 AM EDT Office Visit Neurology [facility] 200 [place] [address] Corey Smiley MD 100 [place] [address] 09/02/2025 10:00 AM EST Office Visit Family [address] [phone] Marge Leal MD [address] [place] [address] [place] [address] Scheduled Procedures Name Priority Associated Diagnoses Date/Ti me INSERT TUNNELED CENTRAL VENOUS ACCESS WITH SUBQ PORT Malignant neoplasm of lung, unspecified laterality, unspecified part of lung (HCC) 01/06/2025 12:29 PM EDT COLONOSCOPY FLEXIBLE PROXIMAL DIAGNOSTIC Recall Constipation, unspecified constipation type Health Maintenance Due Date Last Done Comments DISCUSS TOBACCO CESSATION (REFER TO SMARTSET #8561) 1950 Depression Screening 1963 Alpha-1 Antitrypsin 1969 [...] COPD 11/17/2025 11/17/2024 CKD HGB USE SMARTSET 47926 11/18/202511/18, 10/29/2024, 10/29/2024, Additional history exists CKD PHOS USE SMARTSET 91314 11/20/202510/31, 11/19/2024, 11/18/2024, Additional history exists Colonoscopy 10/07/2026 10/07/2023, 05/2024, 07/25/2023, Additional history exists Colorectal Cancer Screening 10/07/2026 DTap/Tdap Vaccines (3 - Td or Tdap) 09/20/2029 09/20/2019, 01/23/2009 Pneumococcal Vaccine: 50+ Years Completed 07/27/2018, 09/24/2016, 01/23/2009 VITAMIN D LEVEL ONCE IN A LIFETIME-USE SMARTSET# 20094 Completed 06/27/2023, 03/01/2019, 03/26/2017, Additional history exists [...] this encounter Medical Devices Implanted Type Area Emts Device Identifier Shelf Expiration Date Model / Serial / Lot Graft Allomax 1.0 6x16cm - [id number] - [id number] Implanted:Qty: 1 on 07/03/2015 by Jere Souza MD at [place] [facility] [place] Right: Breast CR BARD : DAVOL 08/28/2019 [id number] / [id number] / [id number] Graft Allomax 1.0 6x16cm - [id number] - [id number] Implanted:Qty: 1 on 07/03/2015 by Jere Souza MD at [place] [facility] Left: Breast CR BARD : DAVOL 04/28/2017 [id number] / [id number] / [id number] Implant Breast Li+ 350-2251bc - [id number] Implanted:Qty: 1 on 12/28/2015 by Jere Souza MD at [place] [facility] Left: Breast MENTOR DANYELLE 03/28/2016 350-2251BC / / [id number] Implant Breast Li+ 350-2251bc - [id number] Implanted:Qty: 1 on 12/28/2015 by Jere Souza MD at [place] [facility] Right: Breast MENTOR DANYELLE 03/28/2016 [id number] / / [id number] documented as of this encounter Advance Directives [...] Directives occurred with: Not Discussed Care Teams Membership Manager Relationship Specialty Start Date End Date Marge Leal MD [address] [place] [address] [place] [address] PCP - General Family Medicine 12/31/24 documented as of this encounter
--- OUTSIDE RECORDS SUMMARY | 2025-01-12 18:01 | External Medical Summary ---
Author Name Unknown Address Unknown Organization K01:[facility] [place] [address] [facility] [address] Laboratory Report Ordering Provider Test Date Status BRIANNA RINCON 12/31/2024 10:19:06 Final Observation Date Value Abnormality Reference (Units ) Status MYCODE SPECIMEN-SST 12/31/2024 10:19:06 Freezing of extracted DNA, whole blood and/or serum. Final Performing Location [facility] [place] [place] [address] [facility] [address]
--- OUTSIDE RECORDS SUMMARY | 2025-01-12 18:02 | External Medical Summary | Summary of Care ---
Author Name Unknown Organization [facility] Address [address] [facility] [place] [address] Phone [phone] Care Team Providers Care Automotive Brake Adjuster Name Role Phone Marge Leal MD Primary Care Provide r Reason for Visit * Reason Onset Date Comments Precert Future 12/30/2024 Carboplatin, eto poside Encounter Details Date Type Department Care Team (Late st Contact Info) Description 12/30/2024 Telephone Hematology/Oncology Treatment, [place] [address] [place] [address] Logan Mancia MD 200 [place] [address] Precert Future (Carboplatin, etoposide) Allergies Active Allergy Reactions Criticality Noted Date Comments Varenicline Neuro complications (Please comment) Low 08/23/2019 Vivid nightmares Lisinopril Edema face/lips/tongue High 03/29/2014 Metoprolol Tartrate Edema face/lips/tongue,Other (Please comment) High 05/07/2019 Facial swelling, airway closing up documented as of this encounter (statuses as of 12/30/2024) Medications aspirin 81 MG chewable tabletIndication s:Asymptomatic [...] as of this encounter (statuses as of 12/30/2024) Active Problems Problem Noted Date Diagnosed Date [...] as of this encounter (statuses as of 12/30/2024) Resolved Problems Problem Noted Date Diagnosed Date [...] as of this encounter (statuses as of 12/30/2024) Immunizations Name Administration Dates Next Due Pneumococcal [...] encounter Miscellaneous Notes * Telephone Encounter - Jennifer Teixeira OSA - 12/30/2024 9:48 AM EDT Pt is scheduled * Telephone Encounter - Elysia Troy RN - 12/30/2024 9:01 AM EDT Referral entered. Called patient to see if she was ok with starting treatment prior to port placement. She states that she would be ok with this. Scheduling: please call patient to schedule for next week- 3 day treatment. Her preference would beFriday, Friday, and Friday, notes that she will not have a ride for any appts Friday. Patient will need labs prior to treatment date- she can go any day to any [facility] lab (I think [facility] looks to be closest for her) prior to starting- "CBCd, CMP, hep B" Next week: Day 1: - nurse education visit - 3 hour appt "C1D1 carbo/ etoposide" Day 2: - 2 hour appt "C1D2 etoposide" Day 3: - 2 hour appt C1D3 etoposide" * Telephone Encounter - Elysia Troy RN - 12/30/2024 7:56 AM EDT Order received for carbo/ etoposide. Gap adjusted. Waiting for auth. Consent signed 12/29/24. Education 01/03/25. Will need hep B labs. Port placement ordered- not yet scheduled. documented in this encounter Plan of Treatment Upcoming Encounters Date Type Department Care Team (Late st Contact Info) Description 12/31/2024 10:30 AM EDT Laboratory Laboratory [address] [place] [phone] [facility] Lab [address] [place] [address] 01/03/2025 1:00 PM EDT Pt Ed by Nurse Hematology/Oncology [place] [address] [place] [phone] Desirae Nurse Hem Onc [place] [address] [place] [address] 01/03/2025 2:00 PM EDT Hem/Onc Treatment Hematology/Oncology Treatment [place] [address] [place] [phone] 01/04/2025 8:00 AM EDT Hem/Onc Treatment Hematology/Oncology Treatment, [place] [address] [facility] [address] Desirae, Chair 9 Hem Onc Scenery 200 [facility] [place] [address] 01/05/2025 9:00 AM EDT Imaging Radiology [address], [place] [address] [place] [address] 01/05/2025 1:00 PM EDT Hem/Onc Treatment Hematology/Oncology Treatment, [place] 200 [facility] [place] [phone] Desirae, Chair 9 Hem Onc Scenery 200 [facility] [place] [address] 01/28/2025 10:20 AM EDT Office Visit Family [address] [phone] Rafael Ochoa CRNP [address] [place] [address] [place] [address] 02/15/2025 10:40 AM EDT Office Visit Neurology [facility] 200 [facility] [place] [address] Corey Smiley MD [address] [place] [address] 09/02/2025 10:00 AM EST Office Visit Family Medicine [address] [address] Marge Leal MD [address] [place] [address] [place] [address] Scheduled Orders Name Type Priority Associated Diagnoses Orde r Schedule HEPATITIS B SURFACE ANTIBODY Lab STAT Malignant neoplasm of lung, unspecified laterality, unspecified part of lung (HCC) Expected: 12/30/2024 (Approximate), Expires: 12/30/2025 HEPATITIS B SURFACE ANTIGEN Lab STAT Malignant neoplasm of lung, unspecified laterality, unspecified part of lung (HCC) Expected: 12/30/2024 (Approximate), Expires: 12/30/2025 HEPATITIS B CORE ANTIBODIES IGG AND IGM Lab STAT Malignant neoplasm of lung, unspecified laterality, unspecified part of lung (HCC) Expected: 12/30/2024 (Approximate), Expires: 12/30/2025 CBC WITH WBC DIFFERENTIAL Lab STAT Malignant neoplasm of lung, unspecified laterality, unspecified part of lung (HCC) Every 3 Weeks for 17 Occurrences starting 12/30/2024 until 12/30/2025 COMPREHENSIVE METABOLIC PANEL Lab STAT Malignant neoplasm of lung, unspecified laterality, unspecified part of lung (HCC) Every 3 Weeks for 17 Occurrences starting 12/30/2024 until 12/30/2025 Scheduled Procedures Name Priority Associated Diagnoses Date/Ti [...] COPD 11/17/2025 11/17/2024 CKD HGB USE SMARTSET 55131 11/18/202511/18, 10/29/2024, 10/29/2024, Additional history exists CKD PHOS USE SMARTSET 10231 11/20/202510/31, 11/19/2024, 11/18/2024, Additional history exists Colonoscopy 10/07/2026 10/07/2023, 05/2024, 07/25/2023, Additional history exists Colorectal Cancer Screening 10/07/2026 DTap/Tdap Vaccines (3 - Td or Tdap) 09/20/2029 09/20/2019, 01/23/2009 Pneumococcal Vaccine: 50+ Years Completed 07/27/2018, 09/24/2016, 01/23/2009 VITAMIN D LEVEL ONCE IN A LIFETIME-USE SMARTSET# 49200 Completed 06/27/2023, 03/01/2019, 03/26/2017, Additional history exists [...] this encounter Medical Devices Implanted Type Area Swing Type Lathe Operator Device Identifier Shelf Expiration Date Model / Serial / Lot Graft Allomax 1.0 6x16cm - [id number] - [id number] Implanted:Qty: 1 on 07/03/2015 [place] [facility]: Breast CR BARD : DAVOL 08/28/2019 [id number] / [id number] / [id number] Graft Allomax 1.0 6x16cm - [id number] - [id number] Implanted:Qty: 1 on 07/03/2015 by Jere Souza MD [place] [facility] [place]: Breast CR BARD : DAVOL 04/28/2017 [id number] / [id number] / [id number] Implant Breast Li+ 350-2251bc - [id number] Implanted:Qty: 1 on 12/28/2015 by Jere Souza MD [place] [facility] [place]: Breast MENTOR DANYELLE 03/28/2016 350-2251BC / / [id number] Implant Breast Li+ 350-2251bc - [id number] Implanted:Qty: 1 on 12/28/2015 by Jere Souza MD at [facility] Right: Breast MENTOR DANYELLE 03/28/2016 350-2251BC / / [id number] documented as of this encounter Visit Diagnoses Diagnosis Malignant neoplasm of lung, unspecified laterality, unspecified part of lung (HCC)- Primary documented in this [...] Directives occurred with: Not Discussed Care Teams Automotive Brake Adjuster Relationship Specialty Start Date End Date Marge Leal MD [address] [place] [address] [place] [address] PCP - General Family Medicine 04/13/24 documented as of this encounter
--- OUTSIDE RECORDS SUMMARY | 2025-01-12 18:02 | External Medical Summary | Summary of Care ---
Author Name Unknown Organization [facility] Address [address] [facility] [place] [address] Phone [phone] Care Team Providers Care X Ray Inspector Name Role Phone Marge Leal MD Primary Care Provide r Encounter Details Date Type Department Care Team (Late st Contact Info) Description 12/30/2024 Orders Only Hematology/Oncology [facility] Desirae [place] [address] [place] [address] Logan Mancia MD [address] [place] [address] Allergies Active Allergy Reactions Criticality Noted Date [...] Assessment Author No 11/17/2024 7:33 PM Brooklyn Mnedez RN * Are you blind or do you have serious difficulty seeing, even when wearing glasses? Answer Date of Assessment Author No 11/17/2024 7:33 PM Brooklyn eMndez RN * Do you have serious difficulty [...] Description 12/31/2024 10:30 AM EDT Laboratory Laboratory [address] [place] [phone] [place] [address] 01/03/2025 1:00 PM EDT Pt Ed by Nurse Hematology/Oncology In[place] [address] [place] [phone] Desirae Nurse Hem Onc [facility] 200 [facility] [place] [address] 01/03/2025 2:00 PM EDT Hem/Onc Treatment Hematology/Oncology Treatment, [place] [facility] [phone] 01/04/2025 8:00 AM EDT Hem/Onc Treatment Hematology/Oncology Treatment, [place] 200 [facility] [place] [phone] Desirae, Chair 9 Hem Onc Scenery 200 [facility] [place] [address] 01/05/2025 9:00 AM EDT Imaging Radiology [facility] 1st [facility], [place] [address] [place] [address] 01/05/2025 1:00 PM EDT Hem/Onc Treatment Hematology/Oncology Treatment, [place] 200 [facility] [phone] Desirae, Chair 9 Hem Onc [facility] 200 [facility] [place] [address] 01/28/2025 10:20 AM EDT Office Visit Family Medicine [address] [phone] Rafael Ochoa CRNP [address] [place] [address] [place] [address] 02/15/2025 10:40 AM EDT Office Visit Neurology [facility] 200 [facility] [place] [address] Corey Smiley MD [address] [place], [place] [phone] 09/02/2025 10:00 AM EST Office Visit Family Medicine [address] [phone] Marge Leal MD [address] [place] [address] [place] [address] Scheduled Procedures Name Priority Associated Diagnoses Date/Ti me COLONOSCOPY FLEXIBLE PROXIMA L DIAGNOSTIC Recall Constipation, unspecified constipation type Health Maintenance Due Date Last Done Comments DISCUSS TOBACCO CESSATION (REFER TO SMARTSET #5716) 1950 Depression Screening 1962 Alpha-1 Antitrypsin 1969 [...] COPD 11/17/2025 11/17/2024 CKD HGB USE SMARTSET 25831 11/18/202511/18, 10/29/2024, 10/29/2024, Additional history exists CKD PHOS USE SMARTSET 51065 11/20/202510/31, 11/19/2024, 11/18/2024, Additional history exists Colonoscopy 10/07/2026 10/07/2023, 05/2024, 07/25/2023, Additional history exists Colorectal Cancer Screening 10/07/2026 DTap/Tdap Vaccines (3 - Td or Tdap) 09/20/2029 09/20/2019, 01/23/2009 Pneumococcal Vaccine: 50+ Years Completed 07/27/2018, 09/24/2016, 01/23/2009 VITAMIN D LEVEL ONCE IN A LIFETIME-USE SMARTSET# 34678 Completed 06/27/2023, 03/01/2019, 03/26/2017, Additional history exists [...] this encounter Medical Devices Implanted Type Area Sponge Diver Device Identifier Shelf Expiration Date Model / Serial / Lot Graft Allomax 1.0 6x16cm - [id number] - [id number] Implanted:Qty: 1 on 07/03/2015 by Jere Souza MD at [place] [facility] Right: Breast CR BARD : DAVOL 08/28/2019 [id number] / [id number] / [id number] Graft Allomax 1.0 6x16cm - [id number] - [id number] Implanted:Qty: 1 on 07/03/2015 by Jere Souza MD at OR [facility] Left: Breast CR BARD : DAVOL 04/28/2017 [id number] / [id number] / [id number] Implant Breast Li+ 350-2251bc - [id number] Implanted:Qty: 1 on 12/28/2015 by Jere Souza MD at [place] [facility] Left: Breast MENTOR ADNYELLE 03/28/2016 350-2251BC / / [id number] Implant Breast Li+ 350-2251bc - [id number] Implanted:Qty: 1 on 12/28/2015 by Jere Souza MD at [place] [facility] Right: Breast MENTOR DANYELLE 03/28/2016 350-2251BC / / [id number] documented as of this encounter Advance Directives [...] Directives occurred with: Not Discussed Care Teams X Ray Inspector Relationship Specialty Start Date End Date Marge Leal MD [address] [place] [address] [place] [address] PCP - General Family Medicine 04/13/24 documented as of this encounter
--- OUTSIDE RECORDS SUMMARY | 2025-01-12 18:02 | External Medical Summary | Summary of Care ---
Author Name Unknown Organization [facility] Address [address] [facility] [place] [address] Phone [phone] Care Team Providers Care Plunket Nurse Name Role Phone Marge Leal MD Primary Care Provide r Reason for Visit * Reason Onset Date Comments Precert Future 12/30/2024 Carboplatin, eto poside Encounter Details Date Type Department Care Team (Late st Contact Info) Description 12/30/2024 Telephone Hematology/Oncology Treatment, [place] [address] [place] [address] Logan Mancia MD 200 [place] [address] Precert Future (Carboplatin, etoposide) Allergies Active Allergy [...] she can go any day to any [employer] lab (I think Brendan looks to be [...] AM EDT Order received for carbo/ etoposide. [place] adjusted. Waiting for auth. Consent signed 12/29/24. Education 01/03/25. Will need hep B labs. Port placement ordered- not yet scheduled. documented in this encounter Plan of Treatment Upcoming Encounters Date Type Department Care Team (Late st Contact Info) Description 12/31/2024 10:30 AM EDT Laboratory Laboratory [address] [place] [phone] [facility] Lab [address] [place] [address] 01/03/2025 1:00 PM EDT Pt Ed by Nurse Hematology/Oncology [place] [address] [place] [phone] Desirae Nurse Hem Onc [place] [address] [place] [address] 01/03/2025 2:00 PM EDT Hem/Onc Treatment Hematology/Oncology Treatment [place] [address] [place] [phone] 01/04/2025 8:00 AM EDT Hem/Onc Treatment Hematology/Oncology Treatment, [place] [address] [facility] [phone] Desirae, Chair 9 Hem Onc [place] 200 [facility] [place] [address] 01/05/2025 9:00 AM EDT Imaging Radiology [address], [place] [address] [place] [address] 01/05/2025 1:00 PM EDT Hem/Onc Treatment Hematology/Oncology Treatment, [place] 200 [facility] [place] [phone] Desirae, Chair 9 Hem Onc Scenery 200 [facility] [place] [address] 01/28/2025 10:20 AM EDT Office Visit Family [address] [phone] Rafael Ochoa CRNP [address] [place] [address] [place] [address] 02/15/2025 10:40 AM EDT Office Visit Neurology [facility] 200 [facility] [place] [address] Corey Smiley MD [address] [place] [address] 09/02/2025 10:00 AM EST Office Visit Family Medicine [address] [phone] Marge Leal MD [address] [place] [address] [place] [address] Scheduled Orders Name Type Priority Associated Diagnoses [...] COPD 11/17/2025 11/17/2024 CKD HGB USE SMARTSET 32003 11/18/202511/18, 10/29/2024, 10/29/2024, Additional history exists CKD PHOS USE SMARTSET 59615 11/20/202510/31, 11/19/2024, 11/18/2024, Additional history exists Colonoscopy 10/07/2026 10/07/2023, 05/2024, 07/25/2023, Additional history exists Colorectal Cancer Screening 10/07/2026 DTap/Tdap Vaccines (3 - Td or Tdap) 09/20/2029 09/20/2019, 01/23/2009 Pneumococcal Vaccine: 50+ Years Completed 07/27/2018, 09/24/2016, 01/23/2009 VITAMIN D LEVEL ONCE IN A LIFETIME-USE SMARTSET# 11122 Completed 06/27/2023, 03/01/2019, 03/26/2017, Additional history exists [...] this encounter Medical Devices Implanted Type Area Byproducts Extractor Device Identifier Shelf Expiration Date Model / Serial / Lot Graft Allomax 1.0 6x16cm - [id number] - [id number] Implanted:Qty: 1 on 07/03/2015 by Jere Souza MD at [place] [facility] Right: Breast CR BARD : DAVOL 08/28/2019 [id number] / [id number] / [id number] Graft Allomax 1.0 6x16cm - [id number] - [id number] Implanted:Qty: 1 on 07/03/2015 by Jere Souza MD at OR [facility] [place] Left: Breast CR BARD : DAVOL 04/28/2017 [id number] / [id number] / [id number] Implant Breast Li+ 350-2251bc - [id number] Implanted:Qty: 1 on 12/28/2015 by Jere Souza MD at OR [facility] Left: Breast MENTOR DANYELLE 03/28/2016 350-2251BC / / [id number] Implant Breast Li+ 350-2251bc - [id number] Implanted:Qty: 1 on 12/28/2015 by Jere Souza MD at [facility] Right: Breast MENTOR DANYELLE 03/28/2016 [id number] / / [id number] documented as of this encounter Visit Diagnoses [...] Directives occurred with: Not Discussed Care Teams Plunket Nurse Relationship Specialty Start Date End Date Marge Leal MD [address] [place] [address] [place] [address] PCP - General Family Medicine 04/13/24 documented as of this encounter
--- OUTSIDE RECORDS SUMMARY | 2025-01-12 18:02 | External Medical Summary | Summary of Care ---
Author Name Unknown Organization [facility] Address [address] [facility] [place] [address] Phone [phone] Care Team Providers Care Shank Maker Name Role Phone Marge Leal MD Primary Care Provide r Reason for Visit * Reason Onset Date Comments Precert Future 12/30/2024 Carboplatin, eto poside Encounter Details Date Type Department Care Team (Late st Contact Info) Description 12/30/2024 Telephone Hematology/Oncology Treatment, [place] [address] [place] [address] Logan Mancia MD 200 [place] [address] Precert Future (Carboplatin, etoposide) Allergies Active Allergy [...] Assessment Author No 11/17/2024 7:33 PM Brooklyn Mednez RN documented as of this encounter Mental [...] AM EDT Order received for carbo/ etoposide. [place] adjusted. Waiting for auth. Consent signed 12/29/24. Education 01/03/25. Will need hep B labs. Port placement ordered- not yet scheduled. documented in this encounter Plan of Treatment Upcoming Encounters Date Type Department Care Team (Late st Contact Info) Description 01/03/2025 1:00 PM EDT Pt Ed by Nurse Hematology/Oncology [place] [address] [place] [address] Desirae Nurse Hem Onc [facility] 200 [facility] [place] [address] 01/05/2025 9:00 AM EDT Imaging Radiology [facility] 1st [facility], [place] [address] [place] [address] 01/28/2025 10:20 AM EDT Office Visit Family Medicine [address] [phone] Rafael Ochoa CRNP [address] [place] [address] [place] [address] 02/15/2025 10:40 AM EDT Office Visit Neurology [facility] 200 [facility] [place] [address] Corey Smiley MD [address] [place] [address] 09/02/2025 10:00 AM EST Office Visit Family [address] [phone] Marge Leal MD [address] [place] [address] [place] [address] Scheduled Orders Name Type Priority Associated Diagnoses [...] COPD 11/17/2025 11/17/2024 CKD HGB USE SMARTSET 66794 11/18/202511/18, 10/29/2024, 10/29/2024, Additional history exists CKD PHOS USE SMARTSET 60686 11/20/202510/31, 11/19/2024, 11/18/2024, Additional history exists Colonoscopy 10/07/2026 10/07/2023, 0 05/2024, 07/25/2023, Additional history exists Colorectal Cancer Screening 10/07/2026 DTap/Tdap Vaccines (3 - Td or Tdap) 09/20/2029 09/20/2019, 01/23/2009 Pneumococcal Vaccine: 50+ Years Completed 07/27/2018, 09/24/2016, 01/23/2009 VITAMIN D LEVEL ONCE IN A LIFETIME-USE SMARTSET# 99267 Completed 06/27/2023, 03/01/2019, 03/26/2017, Additional history exists [...] this encounter Medical Devices Implanted Type Area Oracle Database Manager Device Identifier Shelf Expiration Date Model / Serial / Lot Graft Allomax 1.0 6x16cm - [id number] - [id number] Implanted:Qty: 1 on 07/03/2015 [place] [facility]: Breast CR BARD : DAVOL 08/28/2019 [id number] / [id number] / [id number] Graft Allomax 1.0 6x16cm - [id number] - [id number] Implanted:Qty: 1 on 07/03/2015 by Jere Souza MD at [facility] Left: Breast CR BARD : DAVOL 04/28/2017 [id number] / [id number] / [id number] Implant Breast Li+ 350-2251bc - [id number] Implanted:Qty: 1 on 12/28/2015 by Jere Souza MD at [facility] Left: Breast MENTOR DANYELLE 03/28/2016 350-2251BC / / [id number] Implant Breast Li+ 350-2251bc - [id number] Implanted:Qty: 1 on 12/28/2015 by Jere [place] [facility] [place]: Breast MENTOR DANYELLE 03/28/2016 350-2251BC / / [id number] documented as of this encounter Visit Diagnoses [...] Directives occurred with: Not Discussed Care Teams Shank Maker Relationship Specialty Start Date End Date Marge Leal MD [address] [place] [address] [place] [address] PCP - General Family Medicine 04/13/24 documented as of this encounter
--- OUTSIDE RECORDS SUMMARY | 2025-01-12 18:02 | External Medical Summary | Summary of Care ---
Author Name Unknown Organization [facility] Address [address] [facility] [place] [address] Phone [phone] Care Team Providers Care Retail Chain Store Area Supervisor Name Role Phone Marge Leal MD Primary Care Provide r Reason for Visit * Reason Onset Date Comments Precert Future 12/30/2024 Carboplatin, eto poside Encounter Details Date Type Department Care Team (Late st Contact Info) Description 12/30/2024 Telephone Hematology/Oncology Treatment, [place] [address] [place] [address] Logan Mancia MD 200 [place] [address] Precert Future (Carboplatin, etoposide) Allergies Active Allergy [...] she can go any day to any [employer] lab (I think Brendan looks to be [...] AM EDT Order received for carbo/ etoposide. [place] adjusted. Waiting for auth. Consent signed 12/29/24. Education 01/03/25. Will need hep B labs. Port placement ordered- not yet scheduled. documented in this encounter Plan of Treatment Upcoming Encounters Date Type Department Care Team (Late st Contact Info) Description 12/31/2024 10:30 AM EDT Laboratory Laboratory [address] [place] [phone] [facility] Lab [address] [place] [address] 01/03/2025 1:00 PM EDT Pt Ed by Nurse Hematology/Oncology [place] [address] [place] [phone] Desirae Nurse Hem Onc [place] [address] [place] [address] 01/03/2025 2:00 PM EDT Hem/Onc Treatment Hematology/Oncology Treatment [place] [address] [place] [phone] 01/04/2025 8:00 AM EDT Hem/Onc Treatment Hematology/Oncology Treatment, [place] [address] [facility] [address] Desirae, Chair 9 Hem Onc Scenery 200 [facility] [place] [address] 01/05/2025 9:00 AM EDT Imaging Radiology [address], [place] [address] [place] [address] 01/05/2025 1:00 PM EDT Hem/Onc Treatment Hematology/Oncology Treatment, [place] 200 [facility] [place] [phone] Desirae, Chair 9 Hem Onc Scenery 200 [facility] [place] [address] 01/28/2025 10:20 AM EDT Office Visit Family [address] [phone] Rafael Ochoa CRNP [address] [place] [address] [place] [address] 02/15/2025 10:40 AM EDT Office Visit Neurology [facility] 200 [facility] [place] [address] Corey Smiley MD [address] [place] [address] 09/02/2025 10:00 AM EST Office Visit Family Medicine [address] [phone] Marge Leal MD [address] [place] [address] [place] [address] Scheduled Orders Name Type Priority Associated Diagnoses [...] COPD 11/17/2025 11/17/2024 CKD HGB USE SMARTSET 78451 11/18/202511/18, 10/29/2024, 10/29/2024, Additional history exists CKD PHOS USE SMARTSET 02262 11/20/202510/31, 11/19/2024, 11/18/2024, Additional history exists Colonoscopy 10/07/2026 10/07/2023, 05/2024, 07/25/2023, Additional history exists Colorectal Cancer Screening 10/07/2026 DTap/Tdap Vaccines (3 - Td or Tdap) 09/20/2029 09/20/2019, 01/23/2009 Pneumococcal Vaccine: 50+ Years Completed 07/27/2018, 09/24/2016, 01/23/2009 VITAMIN D LEVEL ONCE IN A LIFETIME-USE SMARTSET# 93854 Completed 06/27/2023, 03/01/2019, 03/26/2017, Additional history exists [...] encounter Medical Devices Implanted Type Area Vp Customer Service Device Identifier Shelf Expiration Date Model / Serial / Lot Graft Allomax 1.0 6x16cm - [id number] - [id number] Implanted:Qty: 1 on 07/03/2015 by Je[place]za MD [place] [facility] [place]: Breast CR BARD : DAVOL 08/28/2019 [id number] / [id number] / [id number] Graft Allomax 1.0 6x16cm - [id number] - [id number] Implanted:Qty: 1 on 07/03/2015 by Jere Souza MD [place] [facility] [place] Left: Breast CR BARD : DAVOL 04/28/2017 [id number] / [id number] / [id number] Implant Breast Li+ 350-2251bc - [id number] Implanted:Qty: 1 on 12/28/2015 by Jere Souza MD [place] [facility] Left: Breast MENTOR DANYELLE 03/28/2016 350-2251BC / / [id number] Implant Breast Li+ 350-2251bc - [id number] Implanted:Qty: 1 on 12/28/2015 by Jere Souza MD at [facility] Right: Breast MENTOR DANYELLE 03/28/2016 350-2251BC / / [id number] documented as of this encounter Visit Diagnoses [...] Directives occurred with: Not Discussed Care Teams Retail Chain Store Area Supervisor Relationship Specialty Start Date End Date Marge Leal MD [address] [place] [address] [place] [address] PCP - General Family Medicine 04/13/24 documented as of this encounter
--- OUTSIDE RECORDS SUMMARY | 2025-01-12 18:02 | External Medical Summary | Summary of Care ---
Author Name Unknown Organization [facility] Address [address] [facility] [place] [address] Phone [phone] Care Team Providers Care Customs Import Specialist Name Role Phone Marge Leal MD Primary Care Provide r Reason for Visit * Reason Onset Date Comments Appointment 12/30/2024 Encounter Details Date Type Department Care Team (Late st Contact Info) Description 12/30/[address] [place] [address] Jahaira Armstrong, RT (R) Appointment Allergies Active Allergy Reactions Criticality Noted [...] No 07/13/2024 Does the household have a [facility] source of income? (Household - [...] encounter Miscellaneous Notes * Telephone Encounter - Jahaira Armstrong RT (R) - 12/30/2024 5:37 PM EDT Name: Joanie Mcclure Do you have any of the following: Pacemaker, stents, heart valves, aneurysm clips? No Have you ever worked with metal or have you ever gotten metal in your eyes? No Have you had a colonoscopy in the last 30 days? No On dialysis? No Do you have any dermals or body piercing's? No or ? Do you wear an insulin pump or diabetic monitor? no RT Ilir (R) documented in this encounter Plan of Treatment Upcoming Encounters Date Type Department Care Team (Late st Contact Info) Description 12/31/2024 10:30 AM EDT Laboratory Laboratory [address] [place] [phone] [place], Lab [address] [place] [address] 01/03/2025 1:00 PM EDT Pt Ed by Nurse Hematology/Oncology [place] 200 [facility] [place] [phone] Desirae Nurse Hem Onc [facility] 200 [facility] [place] [address] 01/03/2025 2:00 PM EDT Hem/Onc Treatment Hematology/Oncology Treatment, [address] [place] [phone] 01/04/2025 8:00 AM EDT Hem/Onc Treatment Hematology/Oncology Treatment [address] [place] [phone] Desirae, Chair 9 Hem Onc [facility] 200 [facility] [place] [address] 01/05/2025 9:00 AM EDT Imaging Radiology [facility] 1st [facility], [place] [address] [place] [phone] 01/05/2025 1:00 PM EDT Hem/Onc Treatment Hematology/Oncology Treatment, [place] 200 [facility] [place] [phone] Desirae, Chair 9 Hem Onc [facility] 200 [facility] [place] [address] 01/28/2025 10:20 AM EDT Office Visit Family Medicine [address] [place] [phone] Rafael Ochoa [address] [place] [address] 02/15/2025 10:40 AM EDT Office Visit Neurology [facility] Desirae [place] [address] [place] [address] Corey Smiley MD [address] [place] [address] 09/02/2025 10:00 AM EST Office Visit Family Medicine [address] [phone] Marge Leal MD [address] [place] [address] [place] [address] Scheduled Procedures Name Priority Associated Diagnoses Date/Ti [...] COPD 11/17/2025 11/17/2024 CKD HGB USE SMARTSET 62328 11/18/202511/18, 10/29/2024, 10/29/2024, Additional history exists CKD PHOS USE SMARTSET 44081 11/20/202510/31, 11/19/2024, 11/18/2024, Additional history exists Colonoscopy 10/07/2026 10/07/2023, 05/2024, 07/25/2023, Additional history exists Colorectal Cancer Screening 10/07/2026 DTap/Tdap Vaccines (3 - Td or Tdap) 09/20/2029 09/20/2019, 01/23/2009 Pneumococcal Vaccine: 50+ Years Completed 07/27/2018, 09/24/2016, 01/23/2009 VITAMIN D LEVEL ONCE IN A LIFETIME-USE SMARTSET# 38808 Completed 06/27/2023, 03/01/2019, 03/26/2017, Additional history exists [...] this encounter Medical Devices Implanted Type Area Home And Family Living Professor Device Identifier Shelf Expiration Date Model / Serial / Lot Graft Allomax 1.0 6x16cm - [id number] - [id number] Implanted:Qty: 1 on 07/03/2015 by Jere Souza MD at [place] [facility] [place] Right: Breast CR BARD : DAVOL 08/28/2019 [id number] / [id number] / [id number] Graft Allomax 1.0 6x16cm - [id number] - [id number] Implanted:Qty: 1 on 07/03/2015 by Jere Souza MD at OR [facility] [place] Left: Breast CR BARD : DAVOL 04/28/2017 [id number] / [id number] / [id number] Implant Breast Li+ 350-2251bc - [id number] Implanted:Qty: 1 on 12/28/2015 by Jere Souza MD at OR [facility] [place] Left: Breast MENTOR DANYELLE 03/28/2016 350-2251BC / / [id number] Implant Breast Li+ 350-2251bc - [id number] Implanted:Qty: 1 on 12/28/2015 by Jere Souza MD at [facility] Right: Breast MENTOR DANYELLE 03/28/2016 [id number] / / [id number] documented as of this encounter Advance Directives [...] occurred with: Not Discussed Care Teams Customs Import Specialist Relationship Specialty Start Date End Date Marge Leal MD [address] [place] [address] [place] [address] PCP - General Family Medicine 04/13/24 documented as of this encounter
--- OUTSIDE RECORDS SUMMARY | 2025-01-12 18:02 | External Medical Summary | Summary of Care ---
Author Name Unknown Organization [facility] Address [address] [facility] [place] [address] Phone [phone] Care Team Providers Care Boat Loader Helper Name Role Phone Marge Leal MD Primary Care Provide r Encounter Details Date Type Department Care Team (Late st Contact Info) Description 12/30/2024 Orders Only Hematology/Oncology, [facility] [place] [address] Logan Mancia MD 200 [facility], [place] [phone] Allergies Active Allergy Reactions Criticality Noted Date [...] older, IM (Adacel) 01/23/2009 Varicella Zoster Vaccine Osoiro lt (Zostavax) 07/15/2012 Zoster Vaccine Recombinant (Shingrix) [...] Description 12/31/2024 10:30 AM EDT Laboratory Laboratory [address] [place] [phone] [place] [address] 01/03/2025 1:00 PM EDT Pt Ed by Nurse Hematology/Oncology [place] [address] [place] [phone] Desirae Nurse Hem Onc [facility] 200 [facility] [place] [address] 01/03/2025 2:00 PM EDT Hem/Onc Treatment Hematology/Oncology Treatment, [place] 200 [facility] [phone] 01/04/2025 8:00 AM EDT Hem/Onc Treatment Hematology/Oncology Treatment, [place] 200 [facility] [place] [phone] Desirae, Chair 9 Hem Onc Scen[place] 200 [facility] [place] [address] 01/05/2025 9:00 AM EDT Imaging Radiology [facility] 1st [facility], [place] [address] [place] [phone] 01/05/2025 1:00 PM EDT Hem/Onc Treatment Hematology/Oncology Treatment, [place] 200 [facility] [place] [phone] Desirae, Chair 9 Hem On[address] [place] [address] 01/28/2025 10:20 AM EDT Office Visit Family Medicine [address] [phone] Rafael Ochoa CRNP [address] [place] [address] [place] [address] 02/15/2025 10:40 AM EDT Office Visit Neurology [facility] 200 [facility] [place] [address] Coery mSiley MD [address] [place], [place] [address] 09/02/2025 10:00 AM EST Office Visit Family Medicine [address] [phone] Marge Leal MD [address] [place] [address] [place] [address] Scheduled Procedures Name Priority Associated Diagnoses Date/Ti me COLONOSCOPY FLEXIBLE PROXIMA L DIAGNOSTIC Recall Constipation, unspecified constipation type Health Maintenance Due Date Last Done Comments DISCUSS TOBACCO CESSATION (REFER TO SMARTSET #9093) 1950 Depression Screening 1962 Alpha-1 Antitrypsin 1969 [...] COPD 11/17/2025 11/17/2024 CKD HGB USE SMARTSET 06236 11/18/202511/18, 10/29/2024, 10/29/2024, Additional history exists CKD PHOS USE SMARTSET 16702 11/20/202510/31, 11/19/2024, 11/18/2024, Additional history exists Colonoscopy 10/07/2026 10/07/2023, 05/2024, 07/25/2023, Additional history exists Colorectal Cancer Screening 10/07/2026 DTap/Tdap Vaccines (3 - Td or Tdap) 09/20/2029 09/20/2019, 01/23/2009 Pneumococcal Vaccine: 50+ Years Completed 07/27/2018, 09/24/2016, 01/23/2009 VITAMIN D LEVEL ONCE IN A LIFETIME-USE SMARTSET# 77768 Completed 06/27/2023, 03/01/2019, 03/26/2017, Additional history exists [...] this encounter Medical Devices Implanted Type Area Head Men'S Tennis Coach Device Identifier Shelf Expiration Date Model / Serial / Lot Graft Allomax 1.0 6x16cm - [id number] - [id number] Implanted:Qty: 1 on 07/03/2015 by Jere Souza MD at OR [facility] Right: Breast CR BARD : DAVOL 08/28/2019 [id number] / [id number] / [id number] Graft Allomax 1.0 6x16cm - [id number] - [id number] Implanted:Qty: 1 on 07/03/2015 by Jere Souza MD at OR [facility] Left: Breast CR BARD : DAVOL 04/28/2017 [id number] / [id number] / [id number] Implant Breast Li+ 350-2251bc - [id number] Implanted:Qty: 1 on 12/28/2015 by Jere Souza MD at OR [facility] Left: Breast MENTOR DANYELLE 03/28/2016 350-2251BC / / [id number] Implant Breast Li+ 350-2251bc - [id number] Implanted:Qty: 1 on 12/28/2015 by Jere Souza MD at OR [facility] Right: Breast MENTOR DANYELLE 03/28/2016 350-2251BC / / [id number] documented as of this encounter Advance Directives [...] Directives occurred with: Not Discussed Care Teams Boat Loader Helper Relationship Specialty Start Date End Date Marge Leal MD [address] [place] [address] [place] [address] PCP - General Family Medicine 04/13/24 documented as of this encounter
--- OUTSIDE RECORDS SUMMARY | 2025-01-12 18:03 | External Medical Summary | Summary of Care ---
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 Name Role Phone Marge Leal MD Primary Care Provide r Reason for Visit * Reason Onset Date Comments Advice 11/29/2024 vomiting Encounter Details Date Type Department Care Team (Late st Contact Info) Description 11/29/2024 Telephone Thoracic Surg [facility] [address] [place] [address] Radha Horner, motorcycle police (vomiting) Allergies Active Allergy Reactions Criticality Noted Date Comments Varenicline Neuro complications (Please comment) Low 08/23/2019 Vivid nightmares Lisinopril Edema face/lips/tongue High 03/29/2014 Metoprolol Tartrate Edema face/lips/tongue,Other (Please comment) High 05/07/2019 Facial swelling, airway closing up documented as of this encounter (statuses as of 11/29/2024) Medications aspirin 81 MG chewable tabletIndications: Asymptomatic stenosis of left carotid artery Take 1 Tablet by mouth in the morning. with food.. 100 Tab 5 9 Active Zoster Vac Recomb Adjuvanted 50 MCG/0.5ML Intramuscular Suspension Reconstituted (Shingrix)Indicati ons:Need for vaccination for zoster Inject 0.5 mL into a large muscle now and repeat dose in 60 to 180 days 1 Each 1 0 Active Vitamin D3 10 MCG (400 UNIT) Oral Tablet (Cholecalciferol) Take 1 Tablet by mouth in the morning. Active hydroCHLOROthiazid e 25 MG Oral Tablet (Hydrodiuril)Indic ations:HTN, goal below 140/90 TAKE 1 TABLET BY MOUTH EVERY DAY IN THE MORNING 90 Tablet 1 4 Active Atorvastatin Calcium 20 MG Oral Tablet (Lipitor)Indicatio ns:Asymptomatic stenosis of left carotid artery TAKE 1 TABLET BY MOUTH EVERY DAY IN THE MORNING 90 Tablet 1 4 Active DULoxetine HCl 20 MG Oral Capsule Delayed Release Particles (Cymbalta)Indicati ons:Anxiety TAKE 1 CAPSULE BY MOUTH IN THE MORNING. DO NOT CUT, CRUSH OR CHEW. 90 Capsule 1 4 Active Acetaminophen 500 MG Oral Tablet (Tylenol Extra Strength) Take 2 Tablets by mouth every 6 hours as needed. Active Tylenol PM Extra Strength 500-25 MG Oral Tablet (diphenhydrAMINE-A PAP (sleep)) Take 2 Tablets by mouth at bedtime as needed for Sleep. Active oxyCODONE HCl 5 MG Oral Tablet (Oxy IR) Take 1 Tablet by mouth every 6 hours as needed for Pain, Severe or Pain, Moderate (ongoing therapy). 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 Anxiety 07/27/2018 Osteoporosis 10/25/2016 History of breast cancer 07/26/2015 HTN, goal below 140/90 01/10/2012 Tobacco use disorder 03/14/2006 Chronic rhinitis 03/14/2006 documented as of this encounter (statuses as of 11/29/2024) Resolved Problems Problem Noted Date Diagnosed Date Resolved Date Chronic obstructive pulmonary disease 09/20/2019 09/20/2019 Kidney disease, chronic, sta ge III (GFR 30-59 ml/min) 03/22/2016 08/14/2018 Encounter for antineoplastic chemotherapy 08/04/2015 03/01/2019 Breast cancer, female 08/04/20152017 Malignant neoplasm of [...] as of this encounter (statuses as of 11/29/2024) Immunizations Name Administration Dates Next Due Pneumococcal [...] older, IM (Adacel) 01/23/2009 Varicella Zoster Vaccine (Adult) 07/15/2012 Zoster Vaccine Recombinant (Shingrix) 09/20/2019 documented as of this encounter Social History Tobacco Use Types Packs/Day Years Used Date Smoking Tobacco: Every Day Cigarettes 1.5 61.2 Started: 1962 Passive Smoke Exposure: Current Smokeless [...] 07/13/2024 Transportation Needs Answer Date Record ed READ ONLY Do you have troubl e getting a ride to medical visits or work? Never True 07/13/2024 Does your family have a hard [...] place to sleep at night? No 07/13/2024 READ ONLY Do you think you a re at risk of becoming homeless? No 07/13/2024 Does your family worry about paying [...] Author No 11/17/2024 7:33 PM EST Brooklyn Chau, KB * Are you blind or do you have serious difficulty seeing, even when wearing glasses? Answer Date of Assessment Author No 11/17/2024 7:33 PM EST Brooklyn Chau, KB * Do you have serious difficulty walking or climbing stairs? (5 years old or older) Answer Date of Assessment Author No 11/17/2024 7:33 PM EST Brooklyn Chau, KB * Do you have difficulty dressing or [...] encounter Miscellaneous Notes * Telephone Encounter - Radha Horner RN - 11/29/2024 9:37 AM EST Matthew called regarding his mom, he said she called him she has been vomiting since 3am. They had somezofran at the house that they gave her. I explained it is probably the stomach virus that is going around. Instructed for good hand washing with soap and water, push fluids (pedialyte, gatorade, etc), and bland diet. I did instruct him to call PCP to make them aware and to see if they would want tosee her. He stated that from a surgical standpoint she is doing great, incisions are healing well. He thanked me for taking his call. Holley Beth PA-C and Jennifer VILLAREAL were made aware as well Radha Horner RN MSN [facility] Thoracic Surgery Nurse Navigator [facility] documented in this encounter Plan of Treatment Upcoming Encounters Date Type Department Care Team (Late st Contact Info) Description 12/06/2024 1:30 PM EDT Telemedicine Thoracic Surg [facility] [address] [place] [address] Lee Gomez MD [address], [place] [id number] 01/28/2025 10:20 AM EDT Office Visit [address] [phone] Rafael Ochoa CRNP [address] [place] [address] [place] [phone] 02/15/2025 10:40 AM EDT [facility] [address] [facility] [address] Corey Smiley MD [address], [place] [id number] 09/02/2025 10:00 AM EST Office Visit [address] [phone] Marge Leal MD [address] [place] [address] [place] [id number] Scheduled Procedures Name Priority Associated Diagnoses Date/Ti me COLONOSCOPY FLEXIBLE PROXIMA L DIAGNOSTIC Recall Constipation, unspecified constipation type Health Maintenance Due Date Last Done Comments DISCUSS TOBACCO CESSATION (REFER TO SMARTSET #2721) 1951 Alpha-1 Antitrypsin 1969 Cologuard 1996 Fecal Occult Blood Test 1996 Sigmoidoscopy 1996 *BISPHONATE OR OTHER ACCEPTABLE MEDICATION NEEDED FOR OSTEOPOROSIS (REFER TO SMARTSET #1146) 10/28/2016 Adult Wellness Visit 2017 Zoster Vaccines (3 of 3) 11/15/2019 09/20/2019, 06/29 Depression Screening 08/15/2021 08/15/2020 DXA Scan 09/04/2023 09/04/2021, 10/24/2016 COVID-19 Vaccine ( season) 2024 Influenza Vaccine (FLU shot) (#1) 2024 08/15/2020, 07/07/2019, 07/27/2018, Additional history exists Albumin/Creatinine Ratio 04/13/2025 024, 12/25/2022, 09/03/2021, Additional history exists GFR 05/20/2025 11/20/2024, 10/31, 11/18/2024, Additional history exists O2 ASSESSMENT COMPLETED IN PAST YEAR FOR COPD 11/17/2025 11/17/2024 CKD HGB USE SMARTSET 11044 11/18/202511/18, 10/29/2024, 10/29/2024, Additional history exists CKD PHOS USE SMARTSET 58544 11/20/202510/31, 11/19/2024, 11/18/2024, Additional history exists Colonoscopy 10/07/2026 10/07/2023, 05/2024, 07/25/2023, Additional history exists Colorectal Cancer Screening 10/07/2026 DTap/Tdap Vaccines (3 - Td or Tdap) 09/20/2029 09/20/2019, 01/23/2009 Pneumococcal Vaccine: 50+ Years Completed 07/27/2018, 09/24/2016, 01/23/2009 VITAMIN D LEVEL ONCE IN A LIFETIME-USE SMARTSET# [id number] Completed 06/27/2023, 03/01/2019, 03/26/2017, Additional history exists [...] this encounter Medical Devices Implanted Type Area Environmental Services Supervisor Device Identifier Shelf Expiration Date Model / Serial / Lot Graft Allomax 1.0 6x16cm - [id number] - [id number] Implanted:Qty: 1 on 07/03/2015 by Jere Souza [place] [facility] [place]: Breast CR BARD : DAVOL 08/28/2019 [id number] / [id number] / [id number] Graft Allomax 1.0 6x16cm - [id number] - [id number] Implanted:Qty: 1 on 07/03/2015 by Jere Souza MD [place] [facility] [place]: Breast CR BARD : DAVOL 04/28/2017 [id number] / [id number] / [id number] Implant Breast Li+ [id number] - [id number] Implanted:Qty: 1 on 12/28/2015 by Jere Souza MD [place] [facility] [place]: Breast MENTOR DANYELLE 03/28/2016 [id number] / / [id number] Implant Breast Li+ 350-2251bc - [id number] Implanted:Qty: 1 on 12/28/2015 by Jere Souza MD at [place] [facility] [place] Right: Breast MENTOR DANYELLE 03/28/2016 [id number] / / [id number] documented as of this encounter Advance Directives [...] Directives occurred with: Not Discussed Care Teams Stock Crane Operator Relationship Specialty Start Date End Date Marge Leal MD [address] [place] [address] [place] [id number] PCP - General Family Medicine 04/13/24 documented as of this encounter
--- OUTSIDE RECORDS SUMMARY | 2025-01-12 18:03 | External Medical Summary | Summary of Care ---
Author Name Unknown Organization [facility] Address [address] [place] [address] Phone [phone] Care Team Providers Care Bolter Helper Name Role Phone Marge Leal MD Primary Care Provide r Reason for Referral * Precert (Within 10 days (routine)) - Authorized Specialty Diagnoses / Procedures Referred By Tj ewing Referred To Contact Radiology Diagnoses Malignant neoplasm of lung, unspecified laterality, unspecified part of lung (HCC) Procedures IR VENOUS ACCESS MEDIPORT Logan Mancia MD [address] [place] [address] Phone: tel: fax: Referral ID Status Reason Start Date Expiration Date V isits Requested Visits Authorized [id number] Authorized 01/05/2025 999 999 Reason for Visit * Reason Comments NEW PATIENT * Evaluate & Treat - Unlimited Visits (Within 10 days (routine)) - Authorized Specialty Diagnoses / Procedures Referred By Tj ewing Referred To Contact Hematology/Oncology / Hematology Oncology Diagnoses 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) Lee Gomez MD [address] [place] [address] Phone: tel: fax:[phone] Logan Mancia MD [address] [facility] [place] [address] Phone: tel: fax: Referral ID Status Reason Start Date Expiration Date Visits Requested Visits Authorized [id number] Authorized Specialty Services Required 12/06/2024 999 999 Encounter Details Date Type Department Care Team (Late st Contact Info) Description 12/29/2024 3:00 PM EDT Office Visit Hematology/Oncology [facility] [place] [address] [facility] [place] [phone] Logan Mancia MD [address] [facility] [place] [address] Malignant neoplasm of lung, unspecified laterality, unspecified part of lung (HCC)* Allergies Active Allergy Reactions [...] Sign Reading Time Taken Comments Blood Pressure 131/66 12/29/2024 2:37 PM EDT Pulse 80 12/29/2024 2:37 PM EDT Temperature 36.4 °C (97.5 °F) 12/29/2024 2:37 PM ED T Respiratory Rate - - Oxygen Saturation 98% 12/29/2024 2:37 PM EDT Inhaled Oxygen Concentration - - Weight 77.1 kg (170 lb) 12/29/2024 2:37 PM EDT Height 172.7 cm (5' 8") 12/29/2024 2:37 PM EDT Body Mass Index 25.85 12/29/2024 2:37 PM EDT documented in this encounter Functional Status [...] Brooklyn Mendez RN documented in this encounter Progress Notes * Logan Mancia MD - 12/29/2024 2:56 PM EDT Outpatient Consult Note Data Source: Patient, Epic record. 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 History is also significant for left breast cancer treated with radiation. She was first diagnosed in 1984 where she had a partial mastectomy and radiation therapy. She had a mammogram in 2014 showing a possible recurrence. She then had bilateral mastectomies with reconstruction. Pathology showing invasive carcinoma grade 3, ER/CO negative and HER2 Alexander positive. She was treated with the 1st cycles of TCH and 1 year of Herceptin which she completed on 07/23/2016. She had slowly growing nodule found on screening CT scan. She had a PET scan done on 09/21/2024 which revealed hypermetabolic left upper lobe pulmonary nodule. Her case was discussed in the [facility] and given the peripheral location and small size of the nodule (located behind her left breast implant), it is reasonable to proceed directly to surgical resection, which hopefully would be limited to a wedge (segmentectomy or lobectomy if necessary). She also spoke to Dr. Hernandez today, but it appears radiation is contraindicated because the nodule is within the prior breast cancer treatment field. On to 06/06/2025 patient underwent robotic left VATS and upper lobe therapeutic lung wedge resection and lymphadenectomy. 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 Patient has stage pT2 a pN0. She is scheduled for the MRI brain on 01/05/2025. Final Diagnosis A. Lung, left upper lobe lingula, wedge resection: Large cell neuroendocrine carcinoma (LCNEC) Visceral pleural invasion is identified Lymphovascular invasion is present Margins are negative One parenchymal benign anthracotic lymph node (0/1) Emphysematous changes and pulmonary blebs Smoking associated RB-ILD B. Lymph Node, level 9 L inferior pulmonary ligament #1, biopsy: Benign anthracotic lymph node (0/1) C. Lymph Node, level 9 L inferior pulmonary ligament #2, biopsy: Benign anthracotic lymph node (0/1) D. Lymph Node, level 8 L paraesophageal node, biopsy: Benign anthracotic lymph node (0/1) E. Lymph Node, level 9 L inferior pulmonary ligament #3, biopsy: Benign fibroadipose tissue F. Lymph Node, level 12 L lower lobe hilar #1, biopsy: Benign anthracotic lymph node (0/1) G. Lymph Node, level 12 L lower lobe hilar #2, biopsy: Benign anthracotic lymph node (0/1) H. Lymph Node, level 11 L hilar, biopsy: Benign anthracotic lymph node (0/1) I. Lymph Node, level 12 L upper lobe hilar, biopsy: Benign anthracotic lymph node (0/1) J. Lymph Node, level 5 A-P window #1, biopsy: Benign anthracotic lymph node (0/1) K. Lymph Node, level 5 A-P window #2, biopsy: Benign anthracotic lymph node (0/1) L. Lymph Node, level 7 subcarinal, biopsy: Benign anthracotic lymph node (0/1) M. Lymph Node, level 7 subcarinal #2, biopsy: Benign anthracotic lymph node (0/1) The AJCC pathologic stage would be pT2a, pN0 See synoptic date below at 1425 Clinical History 1.1 x 0.9 cm subpleural anterior left upper lobe pulmonary nodule, SUV 4.6. Synoptic Report LUNG 8th Edition - Protocol posted: 06/19/2022LUNG - All Specimens SPECIMEN Procedure Wedge resection Specimen Laterality Left TUMOR Tumor Focality Single focus Tumor Site Upper lobe of lung Tumor Size Total Tumor Size (size of entire tumor) Greatest Dimension (Centimeters): 2.5 cm Additional Dimension (Centimeters) 1.9 cm 1.2 cm Histologic Type Large cell neuroendocrine carcinoma Histologic Grade Not applicable Visceral Pleura Invasion Present Direct Invasion of Adjacent Structures Not applicable (no adjacent structures present) Treatment Effect No known presurgical therapy Lymphovascular Invasion Lymphatic invasion present Venous invasion present MARGINS Margin Status for Invasive Carcinoma All margins negative for invasive carcinoma Closest Margin(s) to Invasive Carcinoma Parenchymal Distance from Invasive Carcinoma to Closest Margin 2.5 cm Margin Status for Non-Invasive Tumor Not applicable REGIONAL LYMPH NODES Lymph Node(s) from Prior Procedures No known prior lymph node sampling performed Regional Lymph Node Status All regional lymph nodes negative for tumor Number of Lymph Nodes Examined 12 Esequiel Site(s) Examined 7: Subcarinal 5: Subaortic / aortopulmonary (AP) / AP window 8L: Para-esophageal 9L: Pulmonary ligament 11L: Interlobar 12L: Lobar Left: parenchymal PATHOLOGIC STAGE CLASSIFICATION (pTNM, AJCC 8th Edition) Reporting of pT, pN, and (when applicable) pM categories is based on information available to the pathologist at the time the report is issued. As per the AJCC (Chapter 1, 8th Ed.) it is the managingphysician’s responsibility to establish the final pathologic stage based upon all pertinent information, including but potentially not limited to this pathology report. pT Category pT2a pN Category pN0 ADDITIONAL FINDINGS She is having a hoarse voice for many years. She is also complaining of episode of headache on and off. Currently she is smoking less than pack a day since 08/2024. She used to smoke 3 packs per day for over 20 years. Denies drinking. Family history significant for the brother was diagnosed of prostate cancer another brother was diagnosed of breast cancer, paternal uncle was diagnosed of Hodgkin's lymphoma, another uncle was diagnosed skin cancer, niece was diagnosed of melanoma and 2 paternal aunt were diagnosed of brain tumor. Past Medical History: Diagnosis Date Benign neoplasm [...] Repeat in 6 months. Tobacco use disorder Current Outpatient Medications Medication Sig Dispense Refill aspirin 81 MG chewable tablet Take 1 Tablet by mouth in the morning. with food.. 100 Tab 5 Vitamin D3 10 MCG (400 UNIT) Oral Tablet (Cholecalciferol) Take 1 Tablet by mouth in the morning. hydroCHLOROthiazide 25 MG Oral Tablet (Hydrodiuril) TAKE 1 TABLET BY MOUTH EVERY DAY IN THE [id number] Tablet 1 Atorvastatin Calcium 20 MG Oral Tablet (Lipitor) TAKE 1 TABLET BY MOUTH EVERY DAY IN THE MORNING 90Tablet 1 DULoxetine HCl 20 MG Oral Capsule Delayed Release Particles (Cymbalta) TAKE 1 CAPSULE BY MOUTH IN THE MORNING. DO NOT CUT, CRUSH OR CHEW. (Patient taking differently: Take 1 Capsule by mouth at bedtime. Do not cut, crush or chew) 90 Capsule 1 Acetaminophen 500 MG Oral Tablet (Tylenol Extra Strength) Take 2 Tablets by mouth every 6 hours as needed. Tylenol PM Extra Strength 500-25 MG Oral Tablet (diphenhydrAMINE-APAP (sleep)) Take 2 Tablets by mouth at bedtime as needed for Sleep. oxyCODONE HCl 5 MG Oral Tablet (Oxy IR) Take 1 Tablet by mouth every 6 hours as needed for Pain, Severe or Pain, Moderate (ongoing therapy). 10 Tablet 0 amLODIPine Besylate 10 MG Oral Tablet (Norvasc) TAKE 1 TABLET BY MOUTH EVERY DAY IN THE MORNING (Patient taking differently: at bedtime.) 90 Tablet 1 No current facility-administered medications for this visit. Social History Socioeconomic History Marital status: Spouse name: Not on file Number of children: Not on file Years of education: Not on file Highest education level: Not on file Occupational History Not on file Tobacco Use Smoking status: Every Day Current packs/day: 1.00 Average packs/day: 1.5 packs/day for 61.2 years (91.7 ttl pk-yrs) Types: Cigarettes Start date: 1962 [...] Stability Do you currently live in a penitentiary or have no steady place to sleep [...] Age of Onset Heart Disorder Father age 64--OR Diabetes Mother Diabetes Brother Hypertension Sister REVIEW OF SYSTEMS: General: No Fever, chills, night sweats, or weight loss. HEENT: No change in visual acuity, blurred or double vision. No epistaxis, facial pain, nasal discharge or change in hearing. Denies dysphagia, no muscosal ulceration, or sores noted. Cardiovascular: No chest pain, WRIGHT, or palpitations Respiratory: Stable shortness of breath, cough, hemoptysis, or pleuritic chest pain Gastrointestinal: No abdominal pain, nausea, vomiting, diarrhea, rectal pain or bleeding Genitourinary: Denies Hematuria or dysuria Psychiatric: No vegetative signs of depression Endocrine: No symptoms of hypothyroidism or hyperglycemia Hematologic: No bleeding or lymph nodes noted As mentioned above, all other systems were reviewed in full and are unremarkable. Review of patient's allergies indicates: Allergen Reactions Lisinopril Edema face/lips/tongue Metoprolol Tartrate Edema face/lips/tongue and Other (Please comment) Facial swelling, airway closing up Chantix [Varenicline] Neuro complications (Please comment) Vivid nightmares PHYSICAL EXAMINATION: General Appearance: Healthy appearing patient in no acute distress BP 131/66 (BP Site: Right Arm, BP Position: Sitting, BP Cuff Size: Regular) | Pulse 80 | Temp 36.4 °C (97.5 °F) (Tympanic) | Ht 1.727 m (5' 8") | Wt 77.1 kg (170 lb) | SpO2 98% | BMI 25.85 kg/m² |BSA 1.92 m² Vitals were reviewed. HEENT: No oral or pharyngeal masses, ulceration or thrush noted, no sinus tenderness. Neck is supple with no thyromegaly or JVD noted. Lymph Nodes: No lymphadenopathy noted in the occipital, pre and post auricular, cervical, supra andinfraclavicular, axillary, epitrochlear, inguinal, and popliteal region. Lungs/Thorax: Mild expiratory wheezing, no accessory muscles of respiration being used. Heart: Regular rate and rhythm, normal S1, S2. Abdomen: Soft, nontender, bowel sounds present, no appreciable hepatosplenomegaly, no palpable masses Extremeties: Good pulses bilaterally, no peripheral edema. ASSESSMENT: 74-year-old female with a past medical history significant for COPD, hypertension, CKD stage 3, osteoporosis, hyperlipidemia, anxiety, left carotid artery stenosis, history of left breast cancer and mild transferrin regurgitation referred with a recent diagnosis of lung cancer which was found on screening CT scan. She underwent robotic left upper lobe wedge resection and lymphadenectomy by Dr. 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 Lymph nodes were negative. PD-L1 expression less than 10%. Patient is scheduled for the MRI of the brain on 12/31/2024. Patient has aggressive large neuroendocrine tumor and will benefit with adjuvant chemotherapy including combination of carboplatin and etoposide. Discussed with the patient and son in detail about diagnosis and prognosis and reviewed all the available blood tests, PET scan and pathology reports with them. Discussed with him about the benefit, risk, side effects, toxicity and the rationale of the treatment. After detailed discussion she agreed to proceed with treatment and signed the consent form. She is requesting for the placement of the Port-A-Cath because she had difficulty for IV access during the previous treatment for breast cancer. PLAN: As above. Patient will be treated with 4 cycles of etoposide plus carboplatin combination chemotherapy. I will refer the patient to the IR for the placement of Port-A-Cath. She will return clinic forfollow-up 3 weeks after receiving 1st cycle of chemotherapy. The patient voiced understanding of all of the above. All questions and concerns were addressed in an apparently satisfactory manner. Logan Mancia MD (This note was completed using the dictation program Fluency Direct. As such, there may be misspellings, word substitutions, or other variations that should not change the essence of the clinical content of this encounter note. If there is need for further clarification, please direct questions to me.) documented in this encounter Nursing Notes * Olivia Kumari MED ASSIST - 12/29/2024 2:40 PM EDT Patient identifed by name and birthdate Do you have any concerns about pain management for today's visit? Yes. Patient instructed to discuss pain concerns with provider during the visit today Living Will or Advance Directive for Health Care as noted on the problem list. [facility] is a way you can talk to your provider on line through e-mail. Would you like to sign up? I can activate it for you? ALREADY ACTIVE Filed Vitals: 12/29/24 1437 BP: 131/66 Pulse: 80 Temp: 36.4 °C (97.5 °F) TempSrc: Tympanic SpO2: 98% Weight: 77.1 kg (170 lb) Height: 1.727 m (5' 8") Patient was instructed to not get up on the exam table/exam chair until directed and assisted by their provider; patient is to remain seated in the chair/ wheelchair/ exam table/ exam chair for fall prevention and safety reasons. Patient is aware to have assistance to step down off exam table/exam chair with personnel. Patient voiced full comprehension of instructions. documented in this encounter Miscellaneous Notes * Oncology Pathways Update - Logan Mancia MD - 12/29/2024 3:11 PM EDT START ON PATHWAY REGIMEN - Small Cell Lung [id number]: Carboplatin AUC=5 D1 + Etoposide 100 mg/mï¿½ IV D1-3 q21 Days x 4 Cycles A cycle is every 21 days: Carboplatin AUC=5 IV once on day 1 Etoposide 100 mg/mï¿½ IV once daily on days 1, 2, and 3 If node positive, consider chemoradiation. Always confirm dose/schedule in your pharmacy ordering system Citations: -Jeffrey H, Axel K, Henri Y, et al. Phase II study of area under the wtolix-vveadtyfqhjfs-lkvfih-time curve-based carboplatin plus standard-dose intravenous etoposide in elderly patients withsmall-cell lung cancer. J Clin Oncol. 1999;17(11):4630-0686. URL: http://www.ncbi.nlm.nih.gov/pubmed/44835936 -Astrid GORDON, Pawel EF, Oxana P, et al. Phase III study of pemetrexed plus carboplatin compared with etoposide plus carboplatin in chemotherapy-naive patients with extensive-stage small-cell lung cancer. J Clin Oncol. 2009 Jun 29;27(28):3599-92. URL: http://www.ncbi.nlm.nih.gov/pubmed/86660996 Patient Characteristics: Postoperative (Pathologic Staging), Adjuvant Therapy Therapeutic Status: Postoperative (Pathologic Staging) AJCC M Category: cM0 AJCC 9 Stage Grouping: IB AJCC N Category: pN0 AJCC T Category: pT2a Check here if patient was staged using an edition other than AJCC Staging 9th Edition: false Intent of Therapy: Curative Intent, Discussed with Patient * Oncology Pathways Notification - Logan Mancia MD - 12/29/2024 3:11 PM EDT A new patient decision has been made in ClinicalPath. Details of this patient have been provided below: Patient Information: Name: Joanie Mcclure : 1950 Insurance Provider: [employer] Insurance Insurance Plan ID: [id number] Provider Name: Logan Mancia Disease: Small Cell Lung Pathway Followed: Small Cell Lung, Postoperative (Pathologic Staging), Adjuvant Therapy Patient Characteristics: Postoperative (Pathologic Staging), Adjuvant Therapy Therapeutic Status: Postoperative (Pathologic Staging) AJCC M Category: cM0 AJCC 9 Stage Grouping: IB AJCC N Category: pN0 AJCC T Category: pT2a Check here if patient was staged using an edition other than AJCC Staging 9th Edition: false Intent of Therapy: Curative Intent, Discussed with PatientTreatment Details: START ON PATHWAY REGIMEN [id number]: Carboplatin AUC=5 D1 + Etoposide 100 mg/mï¿½ IV D1-3 q21 Days x 4 Cycles A cycle is every 21 days: Carboplatin AUC=5 IV once on day 1 Etoposide 100 mg/mï¿½ IV once daily on days 1, 2, and 3 If node positive, consider chemoradiation. Always confirm dose/schedule in your pharmacy ordering system Citations: -Jeffrey H, Axel K, Henri Y, et al. Phase II study of area under the jyhpxi-sjtkhrhpdzxwl-qsgsow-time curve-based carboplatin plus standard-dose intravenous etoposide in elderly patients withsmall-cell lung cancer. J Clin Oncol. 1999;17(11):9974-0231. URL: http://www.ncbi.nlm.nih.gov/pubmed/61665144 -Astrid GORDON, Pawel EF, Oxana P, et al. Phase III study of pemetrexed plus carboplatin compared with etoposide plus carboplatin in chemotherapy-naive patients with extensive-stage small-cell lung cancer. J Clin Oncol. 2009 Jun 29;27(28):9474-92. URL: http://www.ncbi.nlm.nih.gov/pubmed/62058839 documented in this encounter Plan of Treatment Upcoming Encounters Date Type Department Care Team (Late st Contact Info) Description 01/03/2025 1:00 PM EDT Pt Ed by Nurse Hematology/Oncology [facility] [place] [address] [place] [phone] Nurse Desirae Hem Onc [place] [address] [id number] 01/05/2025 9:00 AM EDT Imaging Radiology [facility] [address] [facility] [place] [address] [place] [phone] 01/28/2025 10:20 AM EDT Office Visit Family Medicine [address] [phone] Rafael Ochoa CRNP [address] [place] [address] [place] [id number] 02/15/2025 10:40 AM EDT Office Visit Neurology [facility] [place] [address] [facility] [place] [address] Corey Smiley MD [address] [place] [address] 09/02/2025 10:00 AM EST Office Visit Family Medicine [address] [phone] Marge Leal MD [address] [place] [address] [place] [id number] Scheduled Orders Name Type Priority Associated Diagnoses Orde r Schedule IR VENOUS ACCESS MEDIPORT Medical Imaging Routine Malignant neoplasm of lung, unspecified laterality, unspecified part of lung (HCC) Expected: 01/05/2025, Expires: 01/28/2026 Scheduled Procedures Name Priority Associated Diagnoses Date/Ti [...] COPD 11/17/2025 11/17/2024 CKD HGB USE SMARTSET 27747 11/18/202511/18, 10/29/2024, 10/29/2024, Additional history exists CKD PHOS USE SMARTSET 23514 11/20/202510/31, 11/19/2024, 11/18/2024, Additional history exists Colonoscopy 10/07/2026 10/07/2023, 05/2024, 07/25/2023, Additional history exists Colorectal Cancer Screening 10/07/2026 DTap/Tdap Vaccines (3 - Td or Tdap) 09/20/2029 09/20/2019, 01/23/2009 Pneumococcal Vaccine: 50+ Years Completed 07/27/2018, 09/24/2016, 01/23/2009 VITAMIN D LEVEL ONCE IN A LIFETIME-USE SMARTSET# [id number] Completed 06/27/2023, 03/01/2019, 03/26/2017, Additional history exists [...] this encounter Medical Devices Implanted Type Area Service Unit Operator Oil Well Device Identifier Shelf Expiration Date Model / Serial / Lot Graft Allomax 1.0 6x16cm - [id number] - [id number] Implanted:Qty: 1 on 07/03/2015 by Jere Souza MD at [facility] [place] Right: Breast CR BARD : DAVOL 08/28/2019 [id number] / [id number] / [id number] Graft Allomax 1.0 6x16cm - [id number] - [id number] Implanted:Qty: 1 on 07/03/2015 by Jere Souza MD at OR [facility] [place] Left: Breast CR BARD : DAVOL 04/28/2017 [id number] / [id number] / [id number] Implant Breast Li+ 350-2251bc - [id number] Implanted:Qty: 1 on 12/28/2015 by Jere Souza MD at OR [facility] [place] Left: Breast MENTOR DANYELLE 03/28/2016 [id number] / / [id number] Implant Breast Li+ 350-2251bc - [id number] Implanted:Qty: 1 on 12/28/2015 by Jere Souza MD at OR [facility] [place] Right: Breast MENTOR DANYELLE 03/28/2016 [id number] / / [id number] documented as of this encounter Visit Diagnoses [...] Directives occurred with: Not Discussed Care Teams Bolter Helper Relationship Specialty Start Date End Date Marge Leal MD [address] [place] [address] [place] [phone] PCP - General Family Medicine 04/13/24 documented as of this encounter
--- OUTSIDE RECORDS SUMMARY | 2025-01-12 18:03 | External Medical Summary | Summary of Care ---
Author Name Unknown Organization [facility] Address [address] [facility] [place] [address] Phone [phone] Care Team Providers Care Human Resource Manager Name Role Phone Marge Leal MD Primary Care Provide r Encounter Details Date Type Department Care Team (Late st Contact Info) Description 12/28/2024 Orders Only Hematology/Oncology [facility] [place] [address] [place] [phone] Logan Mancia MD [address] [place] [address] Allergies Active Allergy Reactions Criticality Noted Date Comments Varenicline Neuro complications (Please comment) Low 08/23/2019 Vivid nightmares Lisinopril Edema face/lips/tongue High 03/29/2014 Metoprolol Tartrate Edema face/lips/tongue,Other (Please comment) High 05/07/2019 Facial swelling, airway closing up documented as of this encounter (statuses as of 12/29/2024) Medications aspirin 81 MG chewable tabletIndicatio ns:Asymptomatic [...] Patient taking differently: HS, Reported on 12/06/2024 documented as of this encounter (statuses as of 12/29/2024) Active Problems Problem Noted Date Diagnosed Date [...] as of this encounter (statuses as of 12/29/2024) Resolved Problems Problem Noted Date Diagnosed Date [...] as of this encounter (statuses as of 12/29/2024) Immunizations Name Administration Dates Next Due Pneumococcal [...] 12/29/2024 3:00 PM EDT Office Visit Hematology/Oncology [facility] [address] [facility] [place] [phone] Logan Mancia MD [address] [facility] [place] [address] 01/05/2025 9:00 AM EDT Imaging Radiology [address] [place] [address] 01/28/2025 10:20 AM EDT Office Visit Family Medicine [address] [place] [address] Rafael Ochoa [address] [place] [address] 02/15/2025 10:40 AM EDT Office Visit Neurology [facility] [address] [facility] [place] [address] Corey Smiley MD [address] [place] [address] 09/02/2025 10:00 AM EST Office Visit Family Medicine [address] [place] [phone] Marge Leal MD [address] [place] [address] [place] [address] Scheduled Procedures Name Priority Associated Diagnoses Date/Ti [...] COPD 11/17/2025 11/17/2024 CKD HGB USE SMARTSET 19960 11/18/202511/18, 10/29/2024, 10/29/2024, Additional history exists CKD PHOS USE SMARTSET 56959 11/20/202510/31, 11/19/2024, 11/18/2024, Additional history exists Colonoscopy 10/07/2026 10/07/2023, 05/2024, 07/25/2023, Additional history exists Colorectal Cancer Screening 10/07/2026 DTap/Tdap Vaccines (3 - Td or Tdap) 09/20/2029 09/20/2019, 01/23/2009 Pneumococcal Vaccine: 50+ Years Completed 07/27/2018, 09/24/2016, 01/23/2009 VITAMIN D LEVEL ONCE IN A LIFETIME-USE SMARTSET# 46119 Completed 06/27/2023, 03/01/2019, 03/26/2017, Additional history exists [...] this encounter Medical Devices Implanted Type Area Md Do Resident Urgent Care Device Identifier Shelf Expiration Date Model / Serial / Lot Graft Allomax 1.0 6x16cm - [id number] - [id number] Implanted:Qty: 1 on 07/03/2015 [place] Sou[place] [facility] [place] Breast CR BARD : DAVOL 08/28/2019 [id number] / [id number] / [id number] Graft Allomax 1.0 6x16cm - [id number] - [id number] Implanted:Qty: 1 on 07/03/2015 by Jere Souza [place] [facility] [place] Breast CR BARD : DAVOL 04/28/2017 [id number] / [id number] / [id number] Implant Breast Li+ 350-2251bc - [id number] Implanted:Qty: 1 on 12/28/2015 by Jere Souza MD [place] [facility] [place] Breast MENTOR DANYELLE 03/28/2016 [id number] / / [id number] Implant Breast Li+ 350-2251bc - [id number] Implanted:Qty: 1 on 12/28/2015 by Jere Souza MD [place] [facility] [place] Breast MENTOR DANYELLE 03/28/2016 [id number] / / [id number] documented as of this encounter Advance Directives [...] Directives occurred with: Not Discussed Care Teams Human Resource Manager Relationship Specialty Start Date End Date Marge Leal MD [address] [place] [address] [place] [id number] PCP - General Family Medicine 04/13/24 documented as of this encounter
--- OUTSIDE RECORDS SUMMARY | 2025-01-12 18:03 | External Medical Summary | Summary of Care ---
Author Name Unknown Organization [facility] Address [address] [place] [address] Phone [phone] Care Team Providers Care Wax Specialist Name Role Phone Marge Leal MD Primary Care Provide r Reason for Visit * Reason Onset Date Comments Advice 11/29/2024 vomiting Encounter Details Date Type Department Care Team (Late st Contact Info) Description 11/29/2024 Telephone Thoracic Surg [facility] [address] [place] [address] Radha Horner, elevator erector (vomiting) Allergies Active Allergy Reactions Criticality Noted [...] aware as well Radha Horner RN MSN [facility] Thoracic Surgery Nurse Navigator [facility] documented in this encounter Plan of Treatment Upcoming Encounters Date Type Department Care Team (Late st Contact Info) Description 12/06/2024 1:30 PM EDT Telemedicine Thoracic Surg [facility] [address] [place] [address] Lee Gomez MD [address] [place], [place] [id number] 01/28/2025 10:20 AM EDT Office Visit [address] [phone] Rafael Ochoa CRNP [address] [place] [address] [place] [address] 02/15/2025 10:40 AM EDT Office Visit [facility] [address] Corey Smiley MD [address] [place], [place] [id number] 09/02/2025 10:00 AM EST Office Visit [address] [phone] Marge Leal MD [address] [place] [address] [place] [address] Scheduled Procedures Name Priority Associated Diagnoses Date/Ti me COLONOSCOPY FLEXIBLE PROXIMA L DIAGNOSTIC Recall Constipation, unspecified constipation type Health Maintenance Due Date Last Done Comments DISCUSS TOBACCO CESSATION (REFER TO SMARTSET #8441) 1950 Alpha-1 Antitrypsin 1969 Cologuard 1996 Fecal [...] COPD 11/17/2025 11/17/2024 CKD HGB USE SMARTSET 07186 11/18/202511/18, 10/29/2024, 10/29/2024, Additional history exists CKD PHOS USE SMARTSET 61628 11/20/202510/31, 11/19/2024, 11/18/2024, Additional history exists Colonoscopy 10/07/2026 10/07/2023, 05/2024, 07/25/2023, Additional history exists Colorectal Cancer Screening 10/07/2026 DTap/Tdap Vaccines (3 - Td or Tdap) 09/20/2029 09/20/2019, 01/23/2009 Pneumococcal Vaccine: 50+ Years Completed 07/27/2018, 09/24/2016, 01/23/2009 VITAMIN D LEVEL ONCE IN A LIFETIME-USE SMARTSET# 38219 Completed 06/27/2023, 03/01/2019, 03/26/2017, Additional history exists [...] this encounter Medical Devices Implanted Type Area Senior Commissions Analyst Device Identifier Shelf Expiration Date Model / Serial / Lot Graft Allomax 1.0 6x16cm - [id number] - [id number] Implanted:Qty: 1 on 07/03/2015 by Jere Souza MD at OR [facility] [place] Right: Breast CR BARD : DAVOL 08/28/2019 [id number] / [id number] / [id number] Graft Allomax 1.0 6x16cm - [id number] - [id number] Implanted:Qty: 1 on 07/03/2015 by Jere Souza MD at OR [facility] [place] [place] Left: Breast CR BARD : DAVOL 04/28/2017 [id number] / [id number] / [id number] Implant Breast Li+ 350-2251bc - [id number] Implanted:Qty: 1 on 12/28/2015 by Jere Souza MD at OR [facility] [place] [place] Left: Breast MENTOR DANYELLE 03/28/2016 [id number] / / [id number] Implant Breast Li+ 350-2251bc - [id number] Implanted:Qty: 1 on 12/28/2015 by Jere Souza MD at OR [facility] [place] [place] Right: Breast MENTOR DANYELLE 03/28/2016 [id number] / / [id number] documented as of this encounter Advance Directives [...] Directives occurred with: Not Discussed Care Teams Wax Specialist Relationship Specialty Start Date End Date Marge Leal MD [address] [place] [address] [place] [phone] PCP - General Family Medicine 04/13/24 documented as of this encounter
--- OUTSIDE RECORDS SUMMARY | 2025-01-12 18:03 | External Medical Summary | Summary of Care ---
Author Name Unknown Organization [facility] Address [address] [place] [address] Phone [phone] Care Team Providers Care Filler Wiper Name Role Phone Marge Leal MD Primary Care Provide r Reason for Referral * Precert (Within 10 days (routine)) - Authorized Specialty Diagnoses / Procedures Referred By Contney t Referred To Contact Radiology Diagnoses 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) Procedures MRI BRAIN W WO CONTRAST Holley Beth PA-C [address] [place] [address] Phone: tel: fax: Referral ID Status Reason Start Date Expiration Date V isits Requested Visits Authorized [id number] Authorized 12/13/2024 999 999 * Evaluate & Treat - Unlimited Visits (Within 10 days (routine)) - Authorized Specialty Diagnoses / Procedures Referred By Contac t Referred To Contact Hematology/Oncology / Hematology Oncology Diagnoses 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 Reason for Visit * Reason Comments Post-Op Lung Ca Encounter Details Date Type Department Care Team (Late st Contact Info) Description 12/06/2024 1:30 PM EDT Office Visit Thoracic Surg [facility] [address] [place] [address] Lee Gomez MD [address] [place] [address] 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)* Allergies Active Allergy Reactions Criticality Noted Date Comments Varenicline Neuro complications (Please comment) Low 08/23/2019 Vivid nightmares Lisinopril Edema face/lips/tongue High 03/29/2014 Metoprolol Tartrate Edema face/lips/tongue,Other (Please comment) High 05/07/2019 Facial swelling, airway closing up documented as of this encounter (statuses as of 12/07/2024) Medications aspirin 81 MG chewable tabletIndications :Asymptomatic stenosis of left carotid artery Take 1 Tablet by mouth in the morning. with food.. 100 Tab 5 03/09/20 19 Active Vitamin D3 10 MCG (400 UNIT) Oral Tablet (Cholecalciferol) Take 1 Tablet by mouth in the morning. Active hydroCHLOROthiazi de 25 MG Oral Tablet (Hydrodiuril)Mariella cations:HTN, goal below 140/90 TAKE 1 TABLET BY MOUTH EVERY DAY IN THE MORNING 90 Tablet 1 05/21/20 24 Active Atorvastatin Calcium 20 MG Oral Tablet (Lipitor)Indicati ons:Asymptomatic stenosis of left carotid artery TAKE 1 TABLET BY MOUTH EVERY DAY IN THE MORNING 90 Tablet 1 05/21/20 24 Active DULoxetine HCl 20 MG Oral Capsule Delayed Release Particles (Cymbalta)Indicat ions:Anxiety TAKE 1 CAPSULE BY MOUTH IN THE MORNING. DO NOT CUT, CRUSH OR CHEW. 90 Capsule 1 07/28/20 24 Active Additional Information Patient taking differently:20 mg OralHS, Do not cut, crush or chew, Reported on 12/06/2024 Acetaminophen 500 MG Oral Tablet (Tylenol Extra Strength) Take 2 Tablets by mouth every 6 hours as needed. Active Tylenol PM Extra Strength 500-25 MG Oral Tablet (diphenhydrAMINE- APAP (sleep)) Take 2 Tablets by mouth at bedtime as needed for Sleep. Active oxyCODONE HCl 5 MG Oral Tablet (Oxy IR) Take 1 Tablet by mouth every 6 hours as needed for Pain, Severe or Pain, Moderate (ongoing therapy). 10 Tablet 11/20/19 25 Active amLODIPine Besylate 10 MG Oral Tablet (Norvasc)Indicati ons:HTN, goal below 140/90 TAKE 1 TABLET BY MOUTH EVERY DAY IN THE MORNING 90 Tablet 1 11/23/19 25 Active Additional Information Patient taking differently: HS, Reported on 12/06/2024 Zoster Vac Recomb Adjuvanted 50 MCG/0.5ML Intramuscular Suspension Reconstituted (Shingrix)Indicat ions:Need for vaccination for zoster Inject 0.5 mL into a large muscle now and repeat dose in 60 to 180 days 1 Each 1 08/15/20 20 025 Discontin ued(Patie nt preferenc e/discont inuation) documented as of this encounter (statuses as of 12/07/2024) Active Problems Problem Noted Date Diagnosed Date [...] as of this encounter (statuses as of 12/07/2024) Resolved Problems Problem Noted Date Diagnosed Date [...] as of this encounter (statuses as of 12/07/2024) Immunizations Name Administration Dates Next Due Pneumococcal [...] No 07/13/2024 Does the household have a [facility] source of income? (Household - for ages [...] Sign Reading Time Taken Comments Blood Pressure 130/78 12/06/2024 1:39 PM EDT Pulse 84 12/06/2024 1:39 PM EDT Temperature - - Respiratory Rate - - Oxygen Saturation 98% 12/06/2024 1:39 PM EDT Inhaled Oxygen Concentration - - Weight 76.7 kg (169 lb 3.2 oz) 12/06/2024 1:39 P M EDT Height 167 cm (5' 5.75") 12/06/2024 1:39 PM EDT Body Mass Index 27.52 12/06/2024 1:39 PM EDT documented in this encounter Functional [...] documented in this encounter Progress Notes * Lee Gomez MD - 12/06/2024 2:50 PM EDT 12/06/2024 No major new concerns since hospital discharge. Had chest tube site drainage which has stopped. Pain is reasonably well controlled. Still using occasional oral narcotics. Wounds appear to be healing normally thus far. Pathology reviewed. 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 -- following R0 surgical resection -- may or may not need adjuvant chemotherapy Next Steps: Call us with any surgical problems. Obtain MRI Brain to complete clinical staging (large cell neuroendocrine has a predilection for brain metastases). Refer to Dr. Mancia for a medical oncology opinion on the role of adjuvant systemic therapy. Ultimately proceed to usual lung cancer surveillance (CT Chest in 6 months). All questions answered to apparent satisfaction. Lee Gomez MD FACS System Chief, Thoracic Surgery [facility] [address] [place] [address] * Holley Beth PA-C - 12/06/2024 1:02 PM EDT THORACIC SURGERY POST-OP NOTE 12/06/2024 HPI: Joanie Mcclure is a 74 year old female presenting for post-operative evaluation. Surgery Date: 11/17/2024 Operation: Robotic left VATS (thoracoscopy) -- upper lobe therapeutic lung wedge resection and lymphadenectomy Diagnosis: Left upper lobe lung adenocarcinoma Any problems since last encounter? Presents to clinic today accompanied by her son. Has been feeling weak since surgery. -- did likely have Norovirus last week but symptoms have resolved. Remains shortness of breath with exertion as she was pre operatively. Has intermittent pain along incision sites. -- taking oxycodone and tylenol as needed Physical Exam: Filed Vitals: 12/06/24 1339 BP: 130/78 Pulse: 84 SpO2: 98% Weight: 76.7 kg (169 lb 3.2 oz) Height: 1.67 m (5' 5.75") Incision(s): normal post-op, no signs of infection Lungs: normal respiratory effort, breath sounds diminished at bases; otherwise clear Cardiac: regular rate and rhythm, no murmur, gallops or rub ASSESSMENT / PLAN: 1. Overall doing well post-operatively. Wound care, activity level, and applicable restrictions discussed. 2. Smoking status: Still smoking - cessation encouraged. Currently smoking about 0.5 PPD (down from3 PPD). 3. 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 Follow-up and/or surveillance plan: -- Brain MRI ordered to complete staging -- follow up with Dr. Mancia (Medical Oncology) requested to discuss adjuvant chemotherapy Holley Beth PA-C Physician Re Recording Mixer, Thoracic Surgery Thoracic Surg [address] [address] documented in this encounter Plan of Treatment Upcoming Encounters Date Type Department Care Team (Late st Contact Info) Description 01/28/2025 10:20 AM EDT Office Visit Family [address] [phone] Rafael Ochoa [address] [place] [phone] 02/15/2025 10:40 AM EDT Office Visit Neurology [facility] [place] [address] [facility] [place] [address] Corey Smiley MD [address] [place] [address] 09/02/2025 10:00 AM EST Office Visit Family [address] [phone] Marge Leal MD [address] [place] [address] [place] [phone] Scheduled Orders Name Type Priority Associated Diagnoses Orde r Schedule MRI BRAIN W WO CONTRAST Medical Imaging Routine 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) Expected: 12/13/2024, Expires: 01/06/2026 Scheduled Procedures Name Priority Associated Diagnoses Date/Ti me COLONOSCOPY FLEXIBLE PROXIMA L DIAGNOSTIC Recall Constipation, unspecified constipation type Scheduled Referrals Name Type Priority Associated Diagnoses Orde r Schedule HEMATOLOGY/ONCOLOGY REFERRAL OP Referral Within 10 days (routine) 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) Ordered: 12/06/2024 Health Maintenance Due Date Last Done Comments DISCUSS TOBACCO CESSATION (REFER TO SMARTSET #3291) 1950 Alpha-1 Antitrypsin 1969 Cologuard 1996 Fecal [...] COPD 11/17/2025 11/17/2024 CKD HGB USE SMARTSET 60993 11/18/202511/18, 10/29/2024, 10/29/2024, Additional history exists CKD PHOS USE SMARTSET 90583 11/20/202510/31, 11/19/2024, 11/18/2024, Additional history exists Colonoscopy 10/07/2026 10/07/2023, 05/2024, 07/25/2023, Additional history exists Colorectal Cancer Screening 10/07/2026 DTap/Tdap Vaccines (3 - Td or Tdap) 09/20/2029 09/20/2019, 01/23/2009 Pneumococcal Vaccine: 50+ Years Completed 07/27/2018, 09/24/2016, 01/23/2009 VITAMIN D LEVEL ONCE IN A LIFETIME-USE SMARTSET# 81426 Completed 06/27/2023, 03/01/2019, 03/26/2017, Additional history exists [...] encounter Medical Devices Implanted Type Area Home Health Caregiver Device Identifier Shelf Expiration Date Model / Serial / Lot Graft Allomax 1.0 6x16cm - [id number] - [id number] Implanted:Qty: 1 on 07/03/2015 by Jere Souza MD [place] [facility] [place] Breast CR BARD : DAVOL 08/28/2019 [id number] / [id number] / [id number] Graft Allomax 1.0 6x16cm - [id number] - [id number] Implanted:Qty: 1 on 07/03/2015 by Jere Souza MD [place] [facility] [place]: Breast CR BARD : DAVOL 04/28/2017 [id number] / [id number] / [id number] Implant Breast Li+ 350-2251bc - [id number] Implanted:Qty: 1 on 12/28/2015 by Jere Souza MD [place] [facility] [place]: Breast MENTOR DANYELLE 03/28/2016 350-2251BC / / [id number] Implant Breast Li+ 350-2251bc - [id number] Implanted:Qty: 1 on 12/28/2015 by Jere Souza MD at [place] [facility] [place]: Breast MENTOR DANYELLE 03/28/2016 [id number] / / [id number] documented as of this encounter Visit Diagnoses [...] Directives occurred with: Not Discussed Care Teams Filler Wiper Relationship Specialty Start Date End Date Marge Leal MD [address] [place] [address] [place] [address] PCP - General Family Medicine 04/13/24 documented as of this encounter
--- OUTSIDE RECORDS SUMMARY | 2025-01-12 18:03 | External Medical Summary | Summary of Care ---
Author Name Unknown Organization [facility] Address [address] [facility] [place] [address] Phone [phone] Care Team Providers Care Ultrasound Technician Name Role Phone Marge Leal MD Primary Care Provide r Encounter Details Date Type Department Care Team (Late st Contact Info) Description 12/28/2024 Orders Only Hematology/Oncology [facility] Desirae [place] [address] [place] [phone] Logan Mancia MD [address] [place] [address] Allergies Active Allergy Reactions Criticality Noted Date [...] Pathways Update - Logan Mancia MD - 12/28/2024 9:54 PM EDT START ON PATHWAY REGIMEN - Small Cell Lung [id number]: Cisplatin 75 mg/mï¿½ Day 1 and Etoposide 100 mg/mï¿½ Days 1,2,3 q21 Days x 4 Cycles A cycle is every 21 days: Etoposide 100 mg/mï¿½ in a total of 500 mL NS IV over 2 hours days 1, 2, and 3 Cisplatin 75 mg/mï¿½ in a total of 500 mL NS IV over 2 hours day 1 only. Prehydrate and consider post-hydration If node positive, consider chemoradiation. Always confirm dose/schedule in your pharmacy ordering system Citations: -Amy TH, Natalio RM, Davida DF, et al. Topotecan/cisplatin compared with cisplatin/etoposide as first-line treatment for patients with extensive disease small-cell lung cancer: final results of a randomized phase III trial. J Thorac Oncol. 2012;7(9):5251-9183. URL: https://www.ncbi.nlm.nih.gov/pubmed/53872538 -Sandra R, Yogi K, Dai Y, et al: Phase II trial of postoperative adjuvant cisplatin and etoposide in patients with completely resected stage I- IIIa small cell lung cancer: The [place] ClinicalOncology Lung Cancer Study Group Trial ([id number]). J Thorac Cardiovasc Surg 129:977-983, 2004. URL: https://www.ncbi.nlm.nih.gov/pubmed/58545829 Patient Characteristics: Postoperative (Pathologic Staging), Adjuvant Therapy Therapeutic Status: Postoperative (Pathologic Staging) AJCC M Category: cM0 AJCC 9 Stage Grouping: IB AJCC N Category: pN0 AJCC T Category: pT2a Check here if patient was staged using an edition other than AJCC Staging 9th Edition: false Intent of Therapy: Curative Intent, Discussed with Patient * Oncology Pathways Notification - Logan Mancia MD - 12/28/2024 9:54 PM EDT A new patient decision has been made in ClinicalPath. Details of this patient have been provided below: Patient Information: Name: Joanie Mcclure : 1950 Insurance Provider: [employer] Insurance Insurance Plan ID: [id number] Provider Name: Logan Mancia Disease: Small Cell [...] with PatientTreatment Details: START ON PATHWAY REGIMEN [id number]: Cisplatin 75 mg/mï¿½ Day 1 and Etoposide 100 mg/mï¿½ Days 1,2,3 q21 Days x 4 Cycles A cycle is every 21 days: Etoposide 100 mg/mï¿½ in a total of 500 mL NS IV over 2 hours days 1, 2, and 3 Cisplatin 75 mg/mï¿½ in a total of 500 mL NS IV over 2 hours day 1 only. Prehydrate and consider post-hydration If node positive, consider chemoradiation. Always confirm dose/schedule in your pharmacy ordering system Citations: -Amy CLEMENTS, Natalio RM, Davida DF, et al. Topotecan/cisplatin compared with cisplatin/etoposide as first-line treatment for patients with extensive disease small-cell lung cancer: final results of a randomized phase III trial. J Thorac Oncol. 2012;7(9):9729-5489. URL: https://www.ncbi.nlm.nih.gov/pubmed/14084429 -Sandra R, Yogi K, Dai Y, et al: Phase II trial of postoperative adjuvant cisplatin and etoposide in patients with completely resected stage I- IIIa small cell lung cancer: The [place] ClinicalOncology Lung Cancer Study Group Trial ([id number]). J Thorac Cardiovasc Surg 129:977-983, 2004. URL: https://www.ncbi.nlm.nih.gov/pubmed/33722202 documented in this encounter Plan of Treatment Upcoming Encounters Date Type Department Care Team (Late st Contact Info) Description 12/29/2024 3:00 PM EDT Office Visit Hematology/Oncology [facility] [address] [facility] [place] [phone] Logan Mancia MD [address] [place] [address] 01/05/2025 9:00 AM EDT Imaging Radiology [facility] [address] [facility] [address] [place] [phone] 01/28/2025 10:20 AM EDT Office Visit Family Medicine [address] [place] [phone] Rafael Ochoa CRNP [address] [place] [address] [place] [address] 02/15/2025 10:40 AM EDT Office Visit Neurology [facility] [address] [facility] [place] [address] Corey Smiley MD [address] [place] [address] 09/02/2025 10:00 AM EST Office Visit Family Medicine [address] [phone] Marge Leal MD [address] [place] [address] [place] [phone] Scheduled Procedures Name Priority Associated Diagnoses Date/Ti [...] COPD 11/17/2025 11/17/2024 CKD HGB USE SMARTSET 49898 11/18/202511/18, 10/29/2024, 10/29/2024, Additional history exists CKD PHOS USE SMARTSET 60305 11/20/202510/31, 11/19/2024, 11/18/2024, Additional history exists Colonoscopy 10/07/2026 10/07/2023, 010 05/2024, 07/25/2023, Additional history exists Colorectal Cancer Screening 10/07/2026 DTap/Tdap Vaccines (3 - Td or Tdap) 09/20/2029 09/20/2019, 01/23/2009 Pneumococcal Vaccine: 50+ Years Completed 07/27/2018, 09/24/2016, 01/23/2009 VITAMIN D LEVEL ONCE IN A LIFETIME-USE SMARTSET# 00783 Completed 06/27/2023, 03/01/2019, 03/26/2017, Additional history exists [...] this encounter Medical Devices Implanted Type Area Chain Builder Loom Control Device Identifier Shelf Expiration Date Model / Serial / Lot Graft Allomax 1.0 6x16cm - [id number] - [id number] Implanted:Qty: 1 on 07/03/2015 by Jere Souza MD at [place] [facility] Right: Breast CR BARD : DAVOL 08/28/2019 [id number] / [id number] / [id number] Graft Allomax 1.0 6x16cm - [id number] - [id number] Implanted:Qty: 1 on 07/03/2015 by Jere Souza MD at OR [facility] Left: Breast CR BARD : DAVOL 04/28/2017 [id number] / [id number] / [id number] Implant Breast Li+ 350-2251bc - [id number] Implanted:Qty: 1 on 12/28/2015 by Jere Souza MD at [place] [facility] Left: Breast MENTOR DANYELLE 03/28/2016 [id number] / / [id number] Implant Breast Li+ 350-2251bc - [id number] Implanted:Qty: 1 on 12/28/2015 by Jere Souza MD at OR [facility] Right: Breast MENTOR DANYELLE 03/28/2016 [id number] / / [id number] documented as of this encounter Advance Directives [...] Directives occurred with: Not Discussed Care Teams Ultrasound Technician Relationship Specialty Start Date End Date Marge Leal MD [address] [place] [address] [place] [address] PCP - General Family Medicine 04/13/24 documented as of this encounter
--- OUTSIDE RECORDS SUMMARY | 2025-01-12 18:03 | External Medical Summary | Summary of Care ---
Author Name Unknown Organization [facility] Address [address] [place] [address] Phone [phone] Care Team Providers Care Documentation Nurse Name Role Phone Marge Leal MD Primary Care Provide r Reason for Referral * Precert (Within 10 days (routine)) - Authorized Specialty Diagnoses / Procedures Referred By Contac t Referred To Contact Radiology Diagnoses Pulmonary nodule Procedures PET CT SKULL BASE TO MID-THIGH FDG Tamia Coyne CRNP [address] [place] [address] Phone: tel: fax: Referral ID Status Reason Start Date Expiration Date V isits Requested Visits Authorized [id number] Authorized 08/26/2024 999 999 Reason for Visit * Reason Onset Date Comments STAIR Lung Nodule 08/25/2024 Encounter Details Date Type Department Care Team (Late st Contact Info) Description 08/25/2024 Telephone STAIR LUNG NODULE [address] [place] [address] Tamia Coyne CRNP [address] [place] [address] STAIR Lung Nodule Allergies Active Allergy Reactions Criticality Noted Date Comments Varenicline Neuro complications (Please comment) Low 08/23/2019 Vivid nightmares Lisinopril Edema face/lips/tongue High 03/29/2014 Metoprolol Tartrate Edema face/lips/tongue,Other (Please comment) High 05/07/2019 Facial swelling, airway closing up documented as of this encounter (statuses as of 12/23/2024) Medications aspirin 81 MG chewable tabletIndication s:Asymptomatic stenosis of left carotid artery Take 1 Tablet by mouth in the morning. with food.. 100 Tab 5 019 Active Vitamin D3 10 MCG (400 UNIT) Oral Tablet (Cholecalciferol ) Take 1 Tablet by mouth in the morning. Active hydroCHLOROthiaz yessy 25 MG Oral Tablet (Hydrodiuril)Ind ications:HTN, goal below 140/90 TAKE 1 TABLET BY MOUTH EVERY DAY IN THE MORNING 90 Tablet 1 024 Active Atorvastatin Calcium 20 MG Oral Tablet (Lipitor)Indicat ions:Asymptomati c stenosis of left carotid artery TAKE 1 TABLET BY MOUTH EVERY DAY IN THE MORNING 90 Tablet 1 024 Active DULoxetine HCl 20 MG Oral Capsule Delayed Release Particles (Cymbalta)Indica tions:Anxiety TAKE 1 CAPSULE BY MOUTH IN THE MORNING. DO NOT CUT, CRUSH OR CHEW. 90 Capsule 1 024 Active Additional Information Patient taking differently:20 mg OralHS, Do not cut, crush or chew, Reported on 12/06/2024 Zoster Vac Recomb Adjuvanted 50 MCG/0.5ML Intramuscular Suspension Reconstituted (Shingrix)Indica tions:Need for vaccination for zoster Inject 0.5 mL into a large muscle now and repeat dose in 60 to 180 days 1 Each 1 020 2024 Discontinued(P atient preference/dis continuation) amLODIPine Besylate 10 MG Oral Tablet (Norvasc)Indicat ions:HTN, goal below 140/90 TAKE 1 TABLET BY MOUTH EVERY DAY IN THE MORNING 90 Tablet 1 024 2024 Discontinued documented as of this encounter (statuses as of 12/23/2024) Active Problems Problem Noted Date Diagnosed Date [...] as of this encounter (statuses as of 12/23/2024) Resolved Problems Problem Noted Date Diagnosed Date [...] as of this encounter (statuses as of 12/23/2024) Immunizations Name Administration Dates Next Due Pneumococcal [...] Date Smoking Tobacco: Every Day Cigarettes 1.5 45 Passive Smoke Exposure: Current Smokeless Tobacco: Never [...] AM EDT documented as of this encounter Miscellaneous Notes * Telephone Encounter - Jeny West LPN - 12/23/2024 2:11 PM EDT Patient disenrolled from STAIR Program for Pulmonary Nodule - banner removed * Telephone Encounter - Elysia Pepe OSA - 08/30/2024 12:09 PM EST PT IS SCHEDULED FOR 09/21/24 * Telephone Encounter - Elysia Pepe OSA - 08/27/2024 9:38 AM EST 08/27/24 VM FULL UNABLE TO LMOM FOR PT TO CALL BACK TO SCHEDULE,MYG SENT KF * Telephone Encounter - Irma Chauhan LPN - 08/27/2024 8:35 AM EST Please schedule patient for PET * Telephone Encounter - Tamia Coyne CRNP - 08/25/2024 3:07 PM EST 74 year-old F, active smoker, breast cancer. Slowly enlarging SAURAV 1 cm pulmonary nodule, appears suspicious. read as LR2 Reviewed CT's 11/2022, 05/2023, 09/2023, 03/2024, and 07/2024. Slowly enlarging over each scan. Does appear to have radiation changes to left breast. Reviewed with Dr. Barriga-I agree that it was enlarging. Initially, it looked like there was some paraseptal emphysema versus radiation changes but the cavitary lesion has since slowly filled in with something. It was more solid now. I think it was should be large enough to be detected by PET. If there is any question about avidity, she will likely need SBRT because I do not think that this can be biopsied safely by the navigation bronchoscopy or Interventional Radiology given the location itself ifblanca is still a candidate given the fact that she already had radiation in the past. But we can discuss based on the PET. But I think the best alternative would be likely to refer her to tumor board that way they can also discuss if she is even a candidate for radiation that all if this is avid. Discussed CT scan and plan with Mary. MG irregular nodule is slowly enlarging in size. Will proceed with a PET CT at . She did not seem happy about it, but will go ahead with the PET CT. documented in this encounter Plan of Treatment Upcoming Encounters Date Type Department Care Team (Late st Contact Info) Description 12/29/2024 3:00 PM EDT Office Visit Hematology/Oncology [facility] [address] [facility] [place] [phone] Logan Mancia MD [address] [facility] [place] [address] 01/05/2025 9:00 AM EDT Imaging Radiology [address] [place] [phone] 01/28/2025 10:20 AM EDT Office Visit Family [address] [phone] Rafael Ochoa CRNP [address] [place] [address] [place] [address] 02/15/2025 10:40 AM EDT Office Visit Neurology [facility] [address] [place] [address] Corey Smiley MD [address] [facility] [place] [id number] 09/02/2025 10:00 AM EST Office Visit Family [address] [phone] Marge Martines MD [address] [place] [address] [place] [address] Scheduled Procedures Name Priority Associated Diagnoses Date/Ti me COLONOSCOPY FLEXIBLE PROXIMA L DIAGNOSTIC Recall Constipation, unspecified constipation type Health Maintenance Due Date Last Done Comments DISCUSS TOBACCO CESSATION (REFER TO SMARTSET #0314) 1950 Alpha-1 Antitrypsin 1969 Cologuard 1996 Fecal [...] COPD 11/17/2025 11/17/2024 CKD HGB USE SMARTSET 37733 11/18/202511/18, 10/29/2024, 10/29/2024, Additional history exists CKD PHOS USE SMARTSET 07263 11/20/202510/31, 11/19/2024, 11/18/2024, Additional history exists Colonoscopy 10/07/2026 10/07/2023, 05/2024, 07/25/2023, Additional history exists Colorectal Cancer Screening 10/07/2026 DTap/Tdap Vaccines (3 - Td or Tdap) 09/20/2029 09/20/2019, 01/23/2009 Pneumococcal Vaccine: 50+ Years Completed 07/27/2018, 09/24/2016, 01/23/2009 VITAMIN D LEVEL ONCE IN A LIFETIME-USE SMARTSET# 17508 Completed 06/27/2023, 03/01/2019, 03/26/2017, Additional history exists [...] encounter Medical Devices Implanted Type Area Senior Test Analyst Device Identifier Shelf Expiration Date Model / Serial / Lot Graft Allomax 1.0 6x16cm - [id number] - [id number] Implanted:Qty: 1 on 07/03/2015 by Jere Souza MD at OR [facility] Right: Breast CR BARD : DAVOL 08/28/2019 [id number] / [id number] / [id number] Graft Allomax 1.0 6x16cm - [id number] - [id number] Implanted:Qty: 1 on 07/03/2015 by Jere Souza MD at [facility] Left: Breast CR BARD : DAVOL 04/28/2017 [id number] / [id number] / [id number] Implant Breast Li+ 350-2251bc - [id number] Implanted:Qty: 1 on 12/28/2015 by Jere Souza MD at OR [facility] Left: Breast MENTOR DANYELLE 03/28/2016 [id number] / / [id number] Implant Breast Li+ 350-2251bc - [id number] Implanted:Qty: 1 on 12/28/2015 by Jree Souza MD at OR [facility] Right: Breast MENTOR DANYELLE 03/28/2016 [id number] / / [id number] documented as of this encounter Results * PET CT SKULL BASE TO MID-THIGH FDG (09/21/2024 10:26 AM EST) Anatomical Region Laterality Modality Body, Chest, Abdomen, Pelvis Pos itron Emission Tomography (PET) 09/21/2024 11:5 5 AM EST Impressions 09/21/2024 11:53 AM EST IMPRESSION 1. Hypermetabolic left upper lobe pulmonary nodule concerning for malignancy. 2. No evidence of metastatic disease. Narrative 09/21/2024 11:53 AM EST EXAM PET CT SKULL BASE TO MID-THIGH FDG - 09/21/2024 10:26 am HISTORY Enlarging SAURAV irregular pulmonary nodule, tobacco use, breast cancer. COMPARISON CT CHEST LUNG CANCER SCREEN 3 OR 6 MONTH FOLLOW UP, ACC: [id number], dated 2024-08-09 10:51:00 TECHNIQUE PET imaging was performed from the skull base to mid thighs 65 minutes following the intravenous administration of 12.87 mCi of F-18 fluorodeoxyglucose (FDG). Low- dose CT was performed for anatomic localization and attenuation correction purposes and fused with the PET images. The patient's glucose level at the time of radiotracer injection was 111 mg/dL. The standardized uptake values (SUV) are normalized to BMI and are reported below using maximum values within a region of interest. FINDINGS PET SCAN: Maximum blood pool SUV: 2.3 Maximum hepatic SUV: 2.9 HEAD/NECK: Metabolic activity is within normal limits to include mild bilateral cervical and paravertebral brown fat activation. Unenhanced CT images demonstrate no acute abnormalities. No cervical lymphadenopathy. CHEST: * 1.1 x 0.9 cm subpleural anterior left upper lobe pulmonary nodule, SUV 4.6. * 7 x 6 mm right lower lobe pulmonary nodule unchanged without metabolic activity. Unenhanced CT images demonstrate no acute abnormalities. No effusions, hilar, mediastinal or axillary lymphadenopathy mild atherosclerotic vascular calcifications. Grossly intact bilateral breast implants. ABDOMEN/PELVIS: Metabolic activity is within normal limits. Unenhanced CT images demonstrate no acute abnormalities. Moderate atherosclerotic vascular calcifications. MUSCULOSKELETAL: Metabolic activity is within normal limits. Unenhanced CT images demonstrate no acute abnormalities. Degenerative changes without aggressive osseous lesions. Procedure Note Wu Turner, - 09/21/[address] SKULL BASE TO MID-THIGH FDG - 09/21/2024 10:26 am HISTORY Enlarging SAURAV irregular pulmonary nodule, tobacco use, breast cancer. COMPARISON CT CHEST LUNG CANCER SCREEN 3 OR 6 MONTH FOLLOW UP, ACC: [id number], [id number] 10:51:00 TECHNIQUE PET imaging was performed from the skull base to mid thighs 65 minutesfollowing the intravenous administration of 12.87 mCi of F-18fluorodeoxyglucose (FDG). Low- dose CT was performed for anatomiclocalization and attenuation correction purposes and fused with the PETimages. The patient's glucose level at the time of radiotracer injectionwas 111 mg/dL. The standardized uptake values (SUV) are normalized to BMIand are reported below using maximum values within a region of interest. FINDINGS PET SCAN: Maximum blood pool SUV: 2.3 Maximum hepatic SUV: 2.9 HEAD/NECK: Metabolic activity is within normal limits to include mildbilateral cervical and paravertebral brown fat activation. Unenhanced CT images demonstrate no acute abnormalities. No cervicallymphadenopathy. CHEST: * 1.1 x 0.9 cm subpleural anterior left upper lobe pulmonary nodule, SUV4.6. * 7 x 6 mm right lower lobe pulmonary nodule unchanged without metabolicactivity. Unenhanced CT images demonstrate no acute abnormalities. No effusions,hilar, mediastinal or axillary lymphadenopathy mild atheroscleroticvascular calcifications. Grossly intact bilateral breast implants. ABDOMEN/PELVIS: Metabolic activity is within normal limits. Unenhanced CT images demonstrate no acute abnormalities. Moderateatherosclerotic vascular calcifications. MUSCULOSKELETAL: Metabolic activity is within normal limits. Unenhanced CT images demonstrate no acute abnormalities. Degenerativechanges without aggressive osseous lesions. IMPRESSION IMPRESSION 1. Hypermetabolic left upper lobe pulmonary nodule concerning formalignancy. 2. No evidence of metastatic disease. Tamia VILLAREAL RAD NUCLEAR MED Final Re sult documented in this encounter Visit Diagnoses Diagnosis Pulmonary nodule- Primary Solitary pulmonary nodule Pulmonary nodule Solitary pulmonary nodule documented in this encounter Advance Directives * [...] Directives occurred with: Not Discussed Care Teams Documentation Nurse Relationship Specialty Start Date End Date Marge Leal MD [address] [place] [address] [place] [address] PCP - General Family Medicine 04/13/24 documented as of this encounter
--- OUTSIDE RECORDS SUMMARY | 2025-01-12 18:03 | External Medical Summary | Summary of Care ---
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) Procedures MRI BRAIN W WO CONTRAST Holley Beth PA-C [address] [place] [address] Phone: tel: fax: Referral ID Status Reason Start Date Expiration Date V isits Requested Visits Authorized [id number] Authorized 12/13/2024 999 999 * Evaluate & Treat - Unlimited Visits (Within 10 days (routine)) - Authorized Specialty Diagnoses / Procedures Referred By Contac t Referred To Contact Hematology/Oncology / Hematology Oncology Diagnoses 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 source of income? (Household - for [...] Gomez MD FACS System Chief, Thoracic Surgery [facility] [place] [address] [place] [address] * Holley Beth PA-C - 12/06/2024 1:02 [...] discuss adjuvant chemotherapy Holley Beth PA-C Physician Catheter Builder, Thoracic Surgery Thoracic Surg [address] [address] documented in this encounter Plan of Treatment Upcoming Encounters Date Type Department Care Team (Late st Contact Info) Description 01/28/2025 10:20 AM EDT Office Visit Family [address] [phone] Rafael Ochoa [address] [place] [address] 02/15/2025 10:40 AM EDT Office Visit Neurology [facility] [place] [address] [facility] [place] [address] Corey Smiley MD [address] [place] [address] 09/02/2025 10:00 AM EST Office Visit Family [address] [phone] Marge Leal MD [address] [place] [address] [place] [address] Scheduled Orders Name Type Priority Associated Diagnoses [...] COPD 11/17/2025 11/17/2024 CKD HGB USE SMARTSET 24213 11/18/202511/18, 10/29/2024, 10/29/2024, Additional history exists CKD PHOS USE SMARTSET 87803 11/20/202510/31, 11/19/2024, 11/18/2024, Additional history exists Colonoscopy 10/07/2026 10/07/2023, 05/2024, 07/25/2023, Additional history exists Colorectal Cancer Screening 10/07/2026 DTap/Tdap Vaccines (3 - Td or Tdap) 09/20/2029 09/20/2019, 01/23/2009 Pneumococcal Vaccine: 50+ Years Completed 07/27/2018, 09/24/2016, 01/23/2009 VITAMIN D LEVEL ONCE IN A LIFETIME-USE SMARTSET# 22006 Completed 06/27/2023, 03/01/2019, 03/26/2017, Additional history exists [...] this encounter Medical Devices Implanted Type Area Knife Machine Operator Device Identifier Shelf Expiration Date Model / Serial / Lot Graft Allomax 1.0 6x16cm - [id number] - [id number] Implanted:Qty: 1 on 07/03/2015 by Jere Souza MD at OR [facility] Right: Breast CR BARD : DAVOL 08/28/2019 [id number] / [id number] / [id number] Graft Allomax 1.0 6x16cm - [id number] - [id number] Implanted:Qty: 1 on 07/03/2015 by Jere Souza MD at OR [facility] Left: Breast CR BARD : DAVOL 04/28/2017 [id number] / [id number] / [id number] Implant Breast Li+ 350-2251bc - [id number] Implanted:Qty: 1 on 12/28/2015 by Jere Souza MD at OR [facility] Left: Breast MENTOR DANYELLE 03/28/2016 [id number] / / [id number] Implant Breast Li+ 350-2251bc - [id number] Implanted:Qty: 1 on 12/28/2015 by Jere Souza MD at OR [facility] Right: Breast MENTOR DANYELLE 03/28/2016 [id number] / / [id number] documented as of this encounter Visit Diagnoses [...] Directives occurred with: Not Discussed Care Teams Fruit Vendor Relationship Specialty Start Date End Date Marge Leal MD [address] [place] [address] [place] [address] PCP - General Family Medicine 04/13/24 documented as of this encounter
--- OUTSIDE RECORDS SUMMARY | 2025-01-12 18:04 | External Medical Summary ---
Author Name Unknown Address Unknown Organization K01:[facility] - [address] [place] [address] Laboratory Report Ordering Provider Test Date Status NANCY TORRES 11/17/2024 08:41:49 Final Observation Date Value Abnormality Reference (Units ) Status ABO 11/17/2024 08:41:49 O Final RH 11/17/2024 08:41:49 Negative Final RED BLOOD CELL ANTIBODY SCREEN 11/17/2024 08:41:49 Negative Final SPECIMEN EXPIRATION DATE 11/17/2024 08:41:49 11/20/2024 23:59 Final Performing Location [facility] - [address] [place] [address]
--- OUTSIDE RECORDS SUMMARY | 2025-01-12 18:04 | External Medical Summary | Summary of Care ---
Author Name Unknown Organization [facility] Address [address] [facility] [place] [address] Phone [phone] Care Team Providers Care Guardian Family Member Name Role Phone Marge Leal MD Primary Care Provide r Reason for Visit * Reason Comments eRx-Medication Refill Encounter Details Date Type Department Care Team (Late st Contact Info) Description 11/22/2024 Refill General Internal Medicine [facility] [address] [facility] [address] Aditi Pak PA-C [address] [place] [address] [place] [phone] HTN, goal below 140/90 Allergies Active Allergy Reactions Criticality Noted Date Comments Varenicline Neuro complications (Please comment) Low 08/23/2019 Vivid nightmares Lisinopril Edema face/lips/tongue High 03/29/2014 Metoprolol Tartrate Edema face/lips/tongue,Other (Please comment) High 05/07/2019 Facial swelling, airway closing up documented as of this encounter (statuses as of 11/23/2024) Medications aspirin 81 MG chewable tabletIndications :Asymptomatic stenosis of left carotid artery Take 1 Tablet by mouth in the morning. with food.. 100 Tab 5 03/09/20 19 Active Zoster Vac Recomb Adjuvanted 50 MCG/0.5ML Intramuscular Suspension Reconstituted (Shingrix)Indicat ions:Need for vaccination for zoster Inject 0.5 mL into a large muscle now and repeat dose in 60 to 180 days 1 Each 1 08/15/20 20 Active Vitamin D3 10 MCG (400 UNIT) [...] CHEW. 90 Capsule 1 07/28/20 24 Active Acetaminophen 500 MG Oral Tablet (Tylenol [...] MORNING 90 Tablet 1 11/23/19 25 Active amLODIPine Besylate 10 MG Oral Tablet (Norvasc)Indicati ons:HTN, goal below 140/90 TAKE 1 TABLET BY MOUTH EVERY DAY IN THE MORNING 90 Tablet 1 05/21/20 24 025 Discontinued documented as of this encounter (statuses as of 11/23/2024) Active Problems Problem Noted Date Diagnosed Date Iron deficiency anemia 05/19/2020 Oxygen desaturation during sleep 02/17/2020 COPD, mild 01/25/2020 Decreased diffusion capacity of lung 01/25/2020 Mild tricuspid regurgitation 04/15/2019 Overview (04/15/2019): Echo 02/2019 Primary malignant neoplasm of left upper lobe of lung 03/15/2019 Cancer Staging:Clinical stage from 11/17/2024:Stage IA2(cT1b, cN0, cM0) - Signed by Lee Gomez MD on 11/17/2024 Overview (03/15/2019): 6 x 7 mm nodule 03/15/19. Repeat in 6 months. 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 Anxiety 07/27/2018 Osteoporosis 10/25/2016 History of breast cancer 07/26/2015 HTN, goal below 140/90 01/10/2012 Tobacco use disorder 03/14/2006 Chronic rhinitis 03/14/2006 documented as of this encounter (statuses as of 11/23/2024) Resolved Problems Problem Noted Date Diagnosed Date [...] as of this encounter (statuses as of 11/23/2024) Immunizations Name Administration Dates Next Due Pneumococcal [...] Tobacco: Every Day Cigarettes 1.5 61.2 Started: 1963 Passive Smoke Exposure: Current Smokeless [...] 7:33 PM EST Brooklyn Chau RN * Do you have serious difficulty [...] encounter Miscellaneous Notes * Telephone Encounter - Shauna Abad RPh - 11/23/2024 2:53 PM ESTSigned Prescriptions: Disp Refills amLODIPine Besylate 10 MG Oral Tablet (Nor*90 Tab*1 Sig: TAKE 1TABLET BY MOUTH EVERY DAY IN THE MORNINGAuthorizing Provider: ADITI PAK User: SHAUNA ABAD documented in this encounter Plan of Treatment Upcoming Encounters Date Type Department Care Team (Late st Contact Info) Description 12/06/2024 1:30 PM EDT Office Visit Thoracic Surg [facility] [address] [place] [address] Lee Gomez MD [address] [place] [address] 01/28/2025 10:20 AM EDT Office Visit [address] [phone] Rafael Ochoa CRNP [address] [place] [address] [place] [phone] 02/15/2025 10:40 AM EDT Office Visit Neurology [facility] [address] [facility] [place] [address] Corey Smiley MD [address] [place] [address] 09/02/2025 10:00 AM EST Office Visit Family Medicine [address] [phone] Marge Leal MD [address] [place] [address] [place] [phone] Scheduled Procedures Name Priority Associated Diagnoses Date/Ti [...] COPD 11/17/2025 11/17/2024 CKD HGB USE SMARTSET 71816 11/18/202511/18, 10/29/2024, 10/29/2024, Additional history exists CKD PHOS USE SMARTSET 87685 11/20/2025 02/2 10/2024, 11/19/2024, 11/18/2024, Additional history exists Colonoscopy 10/07/2026 10/07/2023, 05/2024, 07/25/2023, Additional history exists Colorectal Cancer Screening 10/07/2026 DTap/Tdap Vaccines (3 - Td or Tdap) 09/20/2029 09/20/2019, 01/23/2009 Pneumococcal Vaccine: 50+ Years Completed 07/27/2018, 09/24/2016, 01/23/2009 VITAMIN D LEVEL ONCE IN A LIFETIME-USE SMARTSET# [id number] Completed 06/27/2023, 03/01/2019, 03/26/2017, Additional history exists [...] this encounter Medical Devices Implanted Type Area Stripper Soft Plastic Device Identifier Shelf Expiration Date Model / Serial / Lot Graft Allomax 1.0 6x16cm - [id number] - [id number] Implanted:Qty: 1 on 07/03/2015 by Jere Souza MD [place] [facility] [place] Breast CR BARD : DAVOL 08/28/2019 [id number] / [id number] / [id number] Graft Allomax 1.0 6x16cm - [id number] - [id number] Implanted:Qty: 1 on 07/03/2015 by Jere Souza MD at [place] [facility] [place]: Breast CR BARD : DAVOL 04/28/2017 [id number] / [id number] / [id number] Implant Breast Li+ 350-2251bc - [id number] Implanted:Qty: 1 on 12/28/2015 by Jere Souza MD [place] [facility] [place]: Breast MENTOR DANYELLE 03/28/2016 [id number] / / [id number] Implant Breast Li+ 350-2251bc - [id number] Implanted:Qty: 1 on 12/28/2015 by Jere Souza MD at [place] [facility] [place]: Breast MENTOR DANYELLE 03/28/2016 [id number] / / [id number] documented as of this encounter Visit Diagnoses Diagnosis HTN, goal below 140/90 Unspecified essential hypertension documented in this encounter Advance Directives * [...] Directives occurred with: Not Discussed Care Teams Guardian Family Member Relationship Specialty Start Date End Date Marge Leal MD [address] [place] [address] [place] [phone] PCP - General Family Medicine 04/13/24 documented as of this encounter
--- OUTSIDE RECORDS SUMMARY | 2025-01-12 18:04 | External Medical Summary ---
Author Name Unknown Address Unknown Organization : Laboratory Report Ordering Provider Test Date Status PRADIP ALVARES 11/17/2024 10:16:14 Final Observation Date Value Abnormality Reference (Units) Status Blood draw [PhenX] 11/17/2024 10:16:14 Arterial Draw Final pH, POC (i-STAT) 11/17/2024 10:16:14 7.300 Below low normal 7.350-7.450 Final PCO2 POC (i-STAT) 11/17/2024 10:16:14 55.6 Above upper panic limits 35.0-45.0 (mm Hg) Final PO2 POC (i-STAT) 11/17/2024 10:16:14 440 Above high normal 75-100 (mm Hg) Final Base excess standard in Arterial blood by calculation 11/17/2024 10:16:14 0 -2-2 (mmol/L) Final Bicarbonate, Venous, POC (i-STAT) 11/17/2024 10:16:14 27.4 23.0-31.0 (mmol/L) Final O2 Sat, calculated POC (i-STAT) 11/17/2024 10:16:14 100.0 Above high normal 94.0-98.0 (%) Final Glucose, whole blood 11/17/2024 10:16:14 143 Above high normal 70-120 (mg/dL) Final Potassium, Whole Blood 11/17/2024 10:16:14 3.0 Below low normal 3.5-5.1 (mmol/L) Final Sodium, Whole Blood 11/17/2024 10:16:14 137 135-146 (mmol/L) Final Calcium, Ionized, Whole Blood 11/17/2024 10:16:14 1.16 1.13-1.32 (mmol/L) Final Hemoglobin POC (i-STAT) 11/17/2024 10:16:14 12.9 12.0-15.3 (g/dL) Final HCT 11/17/2024 10:16:14 38 36-45 (%) Final Oxygen/Total gas setting [Volume Fraction] Ventilator 11/17/2024 10:16:14 97 (%) Final Performing Location
--- OUTSIDE RECORDS SUMMARY | 2025-01-12 18:04 | External Medical Summary ---
Author Name Unknown Address Unknown Organization : Laboratory Report Ordering Provider Test Date Status PRADIP ALVARES 11/17/2024 08:40:00 Final Observation Date Value Abnormality Reference (Units ) Status Glucose Point of Care 11/17/2024 08:40:00 117 70-120 (mg/dL) Final Performing Location
--- OUTSIDE RECORDS SUMMARY | 2025-01-12 18:04 | External Medical Summary ---
Author Name Unknown Address Unknown Organization [id number][place] [place] [address] [facility] [address] Laboratory Report Ordering Provider Test Date Status AMOS BRENNAN 11/18/2024 05:29:00 Final Observation Date Value Abnormality Reference (Units ) Status WBC, Total 11/18/2024 05:29:00 6.07 4.00-10.80 (K/uL) Final RBC 11/18/2024 05:29:00 4.06 3.85-5.15 (M/uL) Final Hemoglobin 11/18/2024 05:29:00 10.9 Below low normal 12.0-15.3 (g/dL) Final HCT 11/18/2024 05:29:00 33.8 Below low normal 36.0-45.2 (%) Final MCV 11/18/2024 05:29:00 83.3 81.5-97.5 (fL) Final MCH 11/18/2024 05:29:00 26.8 27.0-34.0 (pg) Final MCHC 11/18/2024 05:29:00 32.2 32.0-36.0 (g/dL) Final RDW 11/18/2024 05:29:00 14.4 11.5-15.5 (%) Final Platelets 11/18/2024 05:29:00 220 140-400 (K/uL) Final MPV 11/18/2024 05:29:00 10.3 6.6-11.1 (fL) Final Nucleated erythrocytes/100 leukocytes [Ratio] in Blood by Automated count 11/18/2024 05:29:00 0 <=0 (/100 WBCs) Final Performing Location [facility] [place] [address] [place] [address]
--- OUTSIDE RECORDS SUMMARY | 2025-01-12 18:04 | External Medical Summary ---
Author Name Unknown Address Unknown Organization K01:[facility]AT[facility] - [address] [place] [address] Laboratory Report Ordering Provider Test Date Status AMOS BRENNAN 11/19/2024 04:50:00 Final Observation Date Value Abnormality Reference (Units ) Status Magnesium 11/19/2024 04:50:00 2.0 1.5-2.6 (m g/dL) Final Performing Location [facility] - [address] [place] [address]
--- OUTSIDE RECORDS SUMMARY | 2025-01-12 18:04 | External Medical Summary ---
Author Name Unknown Address Unknown Organization K01:[facility] - [address] [place] [address] Laboratory Report Ordering Provider Test Date Status AMOS BRENNAN 11/20/2024 05:25:00 Final Observation Date Value Abnormality Reference (Units ) Status Magnesium 11/20/2024 05:25:00 1.8 1.5-2.6 (m g/dL) Final Performing Location [facility] - [address] [place] [address]
--- OUTSIDE RECORDS SUMMARY | 2025-01-12 18:04 | External Medical Summary ---
Author Name Unknown Address Unknown Organization : Laboratory Report Ordering Provider Test Date Status PRADIP ALVARES 11/17/2024 11:46:43 Final Observation Date Value Abnormality Reference (Units) Status Blood draw [PhenX] 11/17/2024 11:46:43 Arterial Draw Final pH, POC (i-STAT) 11/17/2024 11:46:43 7.325 Below low normal 7.350-7.450 Final PCO2 POC (i-STAT) 11/17/2024 11:46:43 46.9 Above high normal 35.0-45.0 (mm Hg) Final PO2 POC (i-STAT) 11/17/2024 11:46:43 185 Above high normal 75-100 (mm Hg) Final Base excess standard in Arterial blood by calculation 11/17/2024 11:46:43 -2 -2-2 (mmol/L) Final Bicarbonate, Venous, POC (i-STAT) 11/17/2024 11:46:43 24.5 23.0-31.0 (mmol/L) Final O2 Sat, calculated POC (i-STAT) 11/17/2024 11:46:43 100.0 Above high normal 94.0-98.0 (%) Final Glucose, whole blood 11/17/2024 11:46:43 165 Above high normal 70-120 (mg/dL) Final Potassium, Whole Blood 11/17/2024 11:46:43 3.2 Below low normal 3.5-5.1 (mmol/L) Final Sodium, Whole Blood 11/17/2024 11:46:43 136 135-146 (mmol/L) Final Calcium, Ionized, Whole Blood 11/17/2024 11:46:43 1.11 Below low normal 1.13-1.32 (mmol/L) Final Hemoglobin POC (i-STAT) 11/17/2024 11:46:43 12.2 12.0-15.3 (g/dL) Final HCT 11/17/2024 11:46:43 36 36-45 (%) Final Oxygen/Total gas setting [Volume Fraction] Ventilator 11/17/2024 11:46:43 77 (%) Final Performing Location
--- OUTSIDE RECORDS SUMMARY | 2025-01-12 18:04 | External Medical Summary | Summary of Care ---
Author Name Unknown Organization [facility] Address [address] [place] [id number] Phone [phone] Care Team Providers Care Financial Services Director Name Role Phone Marge Leal MD Primary Care Provide r Reason for Referral * (Within 10 days (routine)) Specialty Diagnoses / Procedures Referred By Contac t Referred To Contact Anatomic Pathology Diagnoses Nodule of upper lobe of left lung [facility] [address] [place] [address] Referral ID Status Reason Start Date Expiration Date Visits Re quested Visits Authorized Question Answer Referral Priority Within 10 days (routine) Where should this appointment be scheduled? [facility] Reason for Visit * Reason Comments NEW PATIENT Lung Nodule * Evaluate & Treat - Unlimited Visits (Within 10 days (routine)) - Authorized Specialty Diagnoses / Procedures Referred By Contact Referred To Contact Thoracic and Cardiac Surgery / Cardiothoracic Surgery Diagnoses Pulmonary nodule Hanny Quigley CRNP [address] [place] [address] Phone: tel: fax: [address] [address] Phone: tel:[phone] Referral ID Status Reason Start Date Expiration Date Visits Requested Visits Authorized [id number] Authorized Specialty Services Required [phone] Encounter Details Date Type Department Care Team (Late st Contact Info) Description 10/28/2024 2:00 PM EST Office Visit [facility] [address] [place] [address] Cl, Lung And Esophageal Cancer [address] [place] [address] Nodule of upper lobe of left lung*; Psychological factors affecting medical condition Allergies Active Allergy Reactions Criticality Noted Date Comments Varenicline Neuro complications (Please comment) Low 08/23/2019 Vivid nightmares Lisinopril Edema face/lips/tongue High 03/29/2014 Metoprolol Tartrate Edema face/lips/tongue,Other (Please comment) High 05/07/2019 Facial swelling, airway closing up documented as of this encounter (statuses as of 11/04/2024) Medications aspirin 81 MG chewable tabletIndications: IN EVENING Take 1 Tablet by mouth in the [...] THE MORNING 90 Tablet 1 4 Active amLODIPine Besylate 10 MG Oral Tablet [...] OR CHEW. 90 Capsule 1 4 Active documented as of this encounter (statuses as of 11/04/2024) Active Problems Problem Noted Date Diagnosed Date Iron deficiency anemia 05/19/2020 Oxygen desaturation during sleep 02/17/2020 COPD, mild 01/25/2020 Decreased diffusion capacity of lung 01/25/2020 Mild tricuspid regurgitation 04/15/2019 Overview (04/15/2019): Echo 02/2019 Nodule of upper lobe of left lung 03/15/2019 Overview (03/15/2019): 6 x 7 mm nodule 03/15/19. Repeat in 6 months. 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 Anxiety 07/27/2018 Osteoporosis 10/25/2016 History of breast cancer 07/26/2015 HTN, goal below 140/90 01/10/2012 Tobacco use disorder 03/14/2006 Chronic rhinitis 03/14/2006 documented as of this encounter (statuses as of 11/04/2024) Resolved Problems Problem Noted Date Diagnosed Date [...] as of this encounter (statuses as of 11/04/2024) Immunizations Name Administration Dates Next Due Pneumococcal [...] Passive Smoke Exposure: Current Smokeless Tobacco: Never Tobacco Cessation:Ready to Q uit: Yes; Counseling Given: Yes Alcohol Use Standard Drinks/Week Comments Yes 0 [...] Sign Reading Time Taken Comments Blood Pressure 120/60 10/28/2024 2:13 PM EST Pulse 92 10/28/2024 2:13 PM EST Temperature - - Respiratory Rate - - Oxygen Saturation 98% 10/28/2024 2:13 PM EST Inhaled Oxygen Concentration - - Weight 80.7 kg (178 lb) 10/28/2024 2:13 PM EST Height 170.2 cm (5' 7") 10/28/2024 2:13 PM EST Body Mass Index 27.88 10/28/2024 2:13 PM EST documented in this encounter Progress Notes * Murtaza Hernandez MD - 10/29/2024 12:45 PM EST Images from the original note were not included. RADIATION ONCOLOGY CONSULTATION NOTE Thoracic Surg [facility], [place] [address] DATA SOURCE: Patient, [facility] LOCATION: Lung Cancer Clinic 10/28/2024 2:45 PM Joanie Mcclure [id number] 74 year old Joanie Mcclure was seen in consultation by Radiation Oncology on 10/28/2024. REFERRING PHYSICIAN: Hanny VILLAREAL DISEASE STATUS: Initial Diagnosis and Workup SITE OF MALIGNANCY: Left Upper Lobe Lung HISTOPATHOLOGY: Unbiopsied STAGE: Consistent with clinico-radiographic Stage I NSCLC CURRENT THERAPY: Workup and staging PRIOR THERAPY: N/a DIAGNOSTIC HISTORY: 09/21/2024 PET/CT, Hypermetabolic left upper lobe pulmonary nodule concerning for malignancy. No evidence of metastatic disease. REASON FOR CONSULTATION: Discussion of the potential role of radiation therapy in the management of the patient's disease process. HISTORY OF PRESENT ILLNESS: 74 year old female diagnosed with above after presenting with serially growing nodule on screening CTs. The patient presented with the following symptoms: abnormal LDCT The duration has been approximately: na The symptoms are worsened by: na The symptoms are improved by: na Associated symptoms include: na Patient is active does all her ADLs Modified [employer] [place] (M[employer]) Dyspnea Scale: Grade Description 0 No breathlessness except with strenuous exercise 1 Breathlessness when hurrying on the level or walking up a slight hill 2 Walks slower than people of the same age on the level because of breathlessness or has to stop for breath when walking at own pace on the level 3 Stops for breath after walking about 100 yards or a few minutes on the level 4 Too breathless to leave the house or breathless when dressing or undressing Some mobility limiations, mostly from chemo induced neuropathy and less so from [place]IGHT. RADIATION HISTORY: 1985 had left breast cancer treated with surgery and adjuvant radiation in [place], she remembers 5weeks of radiation 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 adenomatous polyp, repeat 5 yrs Chronic rhinitis Encounter for antineoplastic chemotherapy 08/04/2015 Family history of colonic polyps Hypertension Tobacco use disorder The patient denies any history of lupus, scleroderma, or other collagen vascular diseases. Patient denies implanted cardiac devices (pacemaker, ICD). Past Surgical History: Procedure Laterality Date BREAST RECONSTRUCTION W/SECURITY ANALYST Bilateral 07/03/2015 BREAST RECONSTRUCTION WITH TISSUE SECURITY ANALYST performed [place] Jere Souza [place] [facility]EDURE NEC biopsy x 3 left COLONOSCOPY W/ LESION REMOVAL, SNARE 12/12/2008 await path, repeat in 3-5 years COLONOSCOPY, DIAGNOSTIC (RECTUM) 01/25/2014 adenomatous polyp, repeat 5 yrs/COLONOSCOPY FLEXIBLE PROXIMAL DIAGNOSTIC performed by Reuben Muse MD at [facility] COLONOSCOPY, DIAGNOSTIC (RECTUM) 03/31/2019 poor prep, repeat/COLONOSCOPY FLEXIBLE PROXIMAL DIAGNOSTIC performed by Reuben Muse MD at [facility] COLONOSCOPY, DIAGNOSTIC (RECTUM) 04/23/2019 normal, repeat 3 yrs/COLONOSCOPY FLEXIBLE PROXIMAL DIAGNOSTIC performed by Nadya Ivy MD at [facility] COLONOSCOPY, DIAGNOSTIC (RECTUM) 07/25/2023 poor prep/COLONOSCOPY FLEXIBLE PROXIMAL DIAGNOSTIC performed by Nadya Ivy MD at [facility] COLONOSCOPY, DIAGNOSTIC (RECTUM) N/A 10/07/2023 COLONOSCOPY FLEXIBLE PROXIMAL DIAGNOSTIC performed by Juan Guerra MD at [facility] EXTRACTION,ERUPTED TOOTH OR EXPOSED ROOT edentulous IMPLANT, BIOLOGIC, SOFT TISSUE REINFORCE Bilateral 07/03/2015 IMPLANT, BIOLOGIC, SOFT TISSUE REINFORCE performed by Jere Souza MD at [facility] MASTECTOMY, SIMPLE, COMPLETE Bilateral 07/03/2015 MASTECTOMY SIMPLE COMPLETE performed by Em Briones [place] [facility] REMOVE TONSILS & ADENOIDS, UNDER 12 REPLACE TISSUE SECURITY ANALYST Bilateral 12/28/2015 REPLACEMENT EXPANDERS WITH PERMANENT PROSTHESIS performed by Jere Souza MD [place] [facility] REVISE UPPER EYELID/EXCESS SKIN Bilateral 05/07/2019 Dr. Smith-B/L Blephroplasty TOTAL ABD HYSTERECTOMY W/WO REMOVAL OF TUBE(S) Current Outpatient Medications Medication Sig Dispense Refill aspirin 81 MG chewable tablet Take 1 Tablet by mouth in the morning. with food.. 100 Tab 5 Zoster Vac Recomb Adjuvanted 50 MCG/0.5ML Intramuscular Suspension Reconstituted (Shingrix) Inject 0.5 mL into a large muscle now and repeat dose in 60 to 180 days 1 Each 1 Vitamin D3 10 MCG (400 UNIT) Oral Tablet (Cholecalciferol) Take 1 Tablet by mouth in the morning. hydroCHLOROthiazide 25 MG Oral Tablet (Hydrodiuril) TAKE 1 TABLET BY MOUTH EVERY DAY IN THE [id number] Tablet 1 amLODIPine Besylate 10 MG Oral Tablet (Norvasc) TAKE 1 TABLET BY MOUTH EVERY DAY IN THE MORNING 90 Tablet 1 Atorvastatin Calcium 20 MG Oral Tablet (Lipitor) TAKE 1 TABLET BY MOUTH EVERY DAY IN THE MORNING 90Tablet 1 DULoxetine HCl 20 MG Oral Capsule Delayed Release Particles (Cymbalta) TAKE 1 CAPSULE BY MOUTH IN THE MORNING. DO NOT CUT, CRUSH OR CHEW. 90 Capsule 1 No current facility-administered medications for this visit. Review of patient's allergies indicates: Allergen Reactions Lisinopril Edema face/lips/tongue Metoprolol Tartrate Other (Please comment) Facial swelling, airway closing up Chantix [Varenicline] Neuro complications (Please comment) Vivid nightmares Social History Socioeconomic History Marital status: Spouse name: Not on file Number of children: Not on file Years of education: Not on file Highest education level: Not on file Occupational History Not on file Tobacco Use Smoking status: Every Day Current packs/day: 1.50 Average packs/day: 1.5 packs/day for 45.0 years (67.5 ttl pk-yrs) Types: Cigarettes Passive exposure: Current Smokeless tobacco: Never Substance and Sexual Activity Alcohol use: Yes [...] Insecurity: No Food Insecurity (07/13/2024) Food Insecurity Do you need food for this week? (Adult - for ages 18 years and over): No Are you able to get enough food for your family? (Household - for ages 0-17 years): Not on file Does your family need food this week? (Household - for ages 0-17 years): Not on file Do you always have enough food for your family? (Household - for ages 0-17 years): Not on file Transportation Needs: No Transportation Needs (07/13/2024) Transportation Needs Do you have trouble getting a ride to medical visits or work? (Adult - for ages 18 years and over):Never True Does your family have a hard time [...] Stability Do you currently live in a mcfp or have no steady place to sleep at night? (Adult - for ages 18 years and over): No Do you think you are at risk of becoming homeless? (Adult - for ages 18 years and over): No Does your family worry about paying for [...] Age of Onset Heart Disorder Father age 64--AK Diabetes Mother Diabetes Brother Hypertension Sister REVIEW OF SYSTEMS: Please see history of present illness above. Review of systems is otherwise non-contributory. PHYSICAL EXAMINATION: BP 120/60 (BP Site: Right Arm, BP Position: Sitting, BP Cuff Size: Regular) | Pulse 92 | Ht 1.702 m(5' 7") | Wt 80.7 kg (178 lb) | SpO2 98% | BMI 27.88 kg/m² | BSA 1.95 m² Wt Readings from Last 4 Encounters: 10/28/24 80.7 kg (178 lb) 10/21/24 78 kg (172 lb) 07/27/24 78 kg (172 lb) 01/19/24 83.6 kg (184 lb 3.2 oz) Very pleasant and communicative General: alert and oriented, no apparent distress, cognition normal Speech intact, no hoarseness Skin: no visible skin lesions Eyes: conjunctiva non-icteric bilaterally Head and face: facial symmetric Lymphatics: no visible cervical adenopathy and no supraclavicular adenopathy In no distress, no wheezing, stridor Upper extremities: non-edematous bilaterally Lower extremities: non-edematous bilaterally Neurologic: no focal deficits ECOG/ZUBROD PERFORMANCE SCALE: 1 restricted in physically strenuous activity but ambulatory and able to carry out work of a light or sedentary nature (light housework or office work) PAIN: Site: na Severity: na LABS: Results for orders placed or performed in visit on 10/10/23 CBC Result Value Ref Range WBC 5.65 4.00 - 10.80 K/uL RBC 4.99 3.85 - 5.15 M/uL HGB 15.4 (H) 12.0 - 15.3 g/dL HCT 46.1 (H) 36.0 - 45.2 % MCV 92.4 81.5 - 97.5 fL MCH 30.9 27.0 - 34.0 pg MCHC 33.4 32.0 - 36.0 g/dL RDW 13.1 11.5 - 15.5 % PLT 265 140 - 400 K/uL MPV 10.3 6.6 - 11.1 fL nRBCs 0 <=0 /100 WBCs Creatinine Results: Lab Results Component Value Date/Time CREATININE - [facility] 1.1 (H) 04/13/2024 12:29 PM CREATININE - [facility] 1.2 (H) 08/22/2023 10:42 AM CREATININE - [facility] 1.2 (H) 06/27/2023 09:34 AM CREATININE - [facility] 1.2 (H) 08/14/2020 [...] URINE - [facility] 74 07/27/2018 01:25 PM BUN Results: Lab Results Component Value Date/Time BUN - [facility] 21 (H) 04/13/2024 12:29 PM BUN - [facility] 22 (H) 08/22/2023 10:42 AM BUN - [facility] 18 06/27/2023 09:34 AM BUN - [facility] 22 (H) 08/14/2020 09:34 AM BUN - [facility] 27 (H) 05/17/2020 10:34 AM BUN - [facility] 23 (H) 09/20/2019 12:10 PM PATHOLOGY: N/a OTHER DIAGNOSTIC STUDIES OR PROCEDURES: Copied from Thoracic Surgery Note: STS CALCULATOR Procedure Type: Robotic Wedge Operative Mortality -- Estimate is 0.629% Morbidity & Mortality -- Estimate is 5.79% Morbidity -- Estimate is 5.45% Latest Reference Range & Units 08/10/19 15:07 10/21/24 10:55 FEV1/FVC Actual Pre % 74 69 FVC Actual Pre L 3.04 2.95 FVC Actual Pre %Predict % 90 95 FEV1 Actual Pre L 2.26 2.04 FEV1 Actual Pre %Predict % 87 86 SPIROMETRY B/A BRONCHODILATOR Rpt FEV1/FVC Actual Post % 73 FVC Actual Post L 3.33 FVC Actual Post %Change % 9 FEV1 Actual Post L 2.44 FEV1 Actual Post %Change % 7 LUNG VOLUMES (PLETHYSMOGRAPHY) Rpt TLC([facility]) Actual Pre L 6.11 TLC ([facility]) Actual Pre %Predict % 107 SVC Actual Pre L 2.76 SVC Actual Pre %Predict % 82 RV ([place]) Actual Pre L 3.36 RV ([facility]) Actual Pre %Predict % 142 RV/TLC ([place]) Actual Pre % 55 DIFFUSION CAPACITY (DLCO) Rpt Rpt DLCO Uncorrect Actual Pre ml/min/mmHg 15.39 12.11 DLCO Uncorrect Actual Pre %Predict % 68 59 FEF 25-75% Actual Post L/sec 2.30 FEF 25-75% Actual Post %Change % 32 FEF 25-75% Actual Pre L/sec 1.73 1.38 FEF 25-75% Actual Pre %Predict % 81 73 TGV Actual Pre L 3.66 TGV Actual Pre %Predict % 112 ASSESSMENT: 74F with extensive smoking history and prior history of left breast cancer, presenting with serially enlarging solid pet avid SAURAV nodule arising from area of fibrosis of prior left breast adjuvant radiation tangent field Case reviewed in [facility], significant concern dealing with early stage NSCLC given radiographic features, difficult target for Bx both IP (small peripheral no airway) and IR approaches (going through silicone breast implant). Options of continued surveillance vs empiric therapy discussed (primary surgical vs primary SBRT approach). Rationale for logistics risks benefits alteratives and acute/chronic toxicity profile of RTdicussed in detail. PFTs are relatively persevered and she appears medically operable, therefore up front approach withsub lobar resection is favored given it would be both diagnostic and therapeutic and would avoid aspects of concern regarding re- irradiating chest wall. PLAN: Patient will proceed with Dr Gomez for surgical planning Discussed smoking cessation, resources offered The role of radiation therapy in this situation was discussed with the patient. The logistics, potential benefits, and potential side effects of radiation therapy were reviewed. Possible short-term and long-term side effects of radiation therapy were discussed. The patient voiced understanding of all of the above. All questions and concerns were addressed in an apparently satisfactory manner. I spent a total of 60 minutes on the date of service in preparation, delivery, and documentation ofthe care provided to Joanie Mcclure, excluding any time spent in the performance of separately billed services. Thank you very much for having asked us to evaluate this patient. Murtaza Hernandez MD 10/28/2024 * Catracho Saucedo, - 10/28/2024 3:52 PM EST BEHAVIORAL MEDICINE ASSESSMENT FOR ONCOLOGY Thoracic [place] [id number] 10/28/2024 3:52 PM Joanie Mcclure ([id number]) is a 74 year old female who was seen as part of the Multidisciplinary Esophageal and Lung Cancer clinic in order to evaluate psychological functioning secondary to a diagnosis of nodule of upper lobe of left lung in preparation for cancer treatment (see included medical notes for details of initial diagnosis and subsequent treatment plan). Provider reviewed elements of Outpatient Services Description including limits of confidentiality, how to contact the department, risks and benefits of treatment and consent for treatment. [facility] is committed to coordinated care through an integrated delivery system and shared medicalrecord. Since our patients are seen both in primary care and behavioral health (as well as other specialties), each provider has immediate access to information to enable collaboration across the continuum. 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 Ly. Accompanying Joanie were the following: son. CPT: 22663 Diagnosis: The encounter diagnosis was Nodule of upper lobe of left lung. Brief Summary: Joanie was oriented to Behavioral Medicine services for oncology and was amenable to meeting. Mood: feeling ok Joanie denies active or passive suicidal ideation (see Risk Assessment below) Coping and response to illness: has had cancer twice so the process feels familiar, feeling apprehensive of the unknown which has been improved a little talking to the providers in the clinic Daytime cancer related fatigue/pain: none related to current cancer diagnosis Understanding of diagnosis and tx plan/medical literacy: understand more, feels like questions are answered and she feels more comfortable Support network (including reactions to diagnosis, if relevant): son reported feeling ok Health behaviors (sleep, caffeine, alcohol, nutrition): max four hours of sleep, difficult falling and staying asleep - possibly d/t not working anymore; a few cups of coffee or tea during the day tosip on; rare alcohol use - once a year; denied issues with appetite Mental health history/medications: dx - anxiety, she said it was when she was trying to get off nicotine; reported Cymbalta is for neuropathy and she hasn't taken it in almost 2 months as she has felt better off of it; denied issues with depression and anxiety History of compliance with treatment, and motivation to undergo treatment presented during today's clinic is Fair. We discuss the usual and normal emotional reactions to a cancer diagnosis, as well as low and anxious mood which can accompany physical discomfort experienced during treatment. We discuss the importance of exercise for combating chemotherapy related fatigue, and of maintaining a regular routine as far as possible. Strategies for stress management and living with uncertainty are discussed as indicated. Sleep difficulties, if any, are discussed and recommendations to improve sleep are made. The following recommendations are made: Joanie Mcclure is advised to contact behavioral health in the event sleep problems/insomnia develop. About 40% of oncology patients experience insomnia. Behavioral treatments, specifically CBTi are considered first line treatment for insomnia, rather than hypnotics. Joanie Mcclure is advised to contact behavioral health in the event depressed and/or anxious mood is experienced most of the day, most days, for 2-3 weeks and begins to interfere with functioning.The incidence of clinical depression and anxiety disorders is higher in oncology patients than the general population. [place] Suicide Severity Rating Scale Results [place] SUICIDE SEVERITY RATING SCALE (C-SSRS) Have you wished you were or wished you could go to sleep and not wake up? (In the Past Month or Since Last Visit) No Have you had any actual thoughts of killing yourself? (In the Past Month or Since Last Visit) No Have you ever done anything, started to do anything, or prepared to do anything to end your life? (Lifetime) No Level of Risk Low The patient is given contact information should if there is a desire to follow up. Mental Status Evaluation: Appearance: Well groomed, casually dressed, appearing stated age Abnormal Movement: No abnormal movements noted Behavior: Calm, cooperative and appropriate Speech and Language: Normal in rate, rhythm, volume and tone Mood: Euthymic Affect: Appropriate to context and mood-congruent Thought Process: Logical, linear and goal directed Thought Content: No abnormal thought content Hallucinations: No perceptual disturbances Suicidality: No suicidal ideations, intent, method or plan or passive wish Homicidality: No homicidal ideations, intent, plan or target Orientation: Oriented to self, time, place and circumstances Attention: Intact Recent and Remote memory:Intact Insight: Good Judgement: Good Fund of Knowledge: Good Low risk crisis plan was developed on 10/28/24. As this is a one time evaluation a treatment plan will not be created. However, should patient engage in ongoing treatment, a plan will be created withthat provider at that time. Type of Service: Psychological Evaluation Crisis Planning: What I can do if I ever experience a crisis (much worse symptoms, severe distress or thoughts of self-harm): Call my provider or dial 911, Talking to loved one or friend or trusted person, and ride on bike People I can call in the event of a crisis: children. Additional resources I can utilize if the previous steps are ineffective (e.g: ED, hotlines): [facility] Crisis [facility], Clinic number: [phone], and [facility] Hotlines for Help Patients Strengths and Facilitating Factors to care: Attempting to realize ones potential and Good support system The assessment and plan for Joanie are detailed at the beginning of this report. Catracho Saucedo MS [facility] Medicine Cancer [facility] [phone] Patient was seen for evaluation as part of a multidisciplinary care clinic. I discussed patient care and plan with the hospital intern/resident. I concur with recommendations/plan documented in the medical record. Aakash Ly PsyD Clinical Psychologist Oncology [facility] [phone] documented in this encounter H&P Notes * Jennifer Montgomery CRNP - 10/28/2024 1:47 PM EST THORACIC SURGERY CLINIC @ [facility] 10/28/2024 HPI: Joanie Mcclure is a 74 year old female presenting for evaluation of enlarging SAURAV FDG avid nodule. She is here with her son Stacey carr. She has a past medical history of COPD, HTN, CKD stage 3, osteoporosis, HLD, JUAN PABLO, Anxiety, L carotid artery stenosis, and mild tricuspid regurgitation. She has a significant cancer history for left breast cancer treated with radiation. She was first diagnosed in 1984 where she had a partial mastectomy and radiation therapy. She had a mammogram in 2014 showing a possible recurrence. She then had bilateral mastectomies with reconstruction. Pathology showing invasive carcinoma and received adjuvant chemotherapy. Nodule was found through screening. Symptoms: Denies any chest pain. Occasional cough. She gets a dry throat with phlegm that sets off coughing. Occasional productive cough. Raspy voice. Functional status: Steps: She walks one flight to a landing at [place] and then requires a break before finishing the flight. She doesn't have to use steps at home. Exercise- Walks around the house. She rides her fausto. She moves around the house a lot during the day. 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 She is a current smoker. She smokes 1.5 ppd, 67.5 pack years. She is smoking 1 pack or less a day. Was smoking 2-3 packs a day. She was in the ER with nicotine withdrawal. Allergies: Review of patient's allergies indicates: Allergen Reactions Lisinopril Edema face/lips/tongue Chantix [Varenicline] Other (Please comment) Vivid nightmares Metoprolol Tartrate Facial swelling, airway closing up Current Outpatient Medications Medication Sig Dispense Refill aspirin 81 MG chewable tablet Take 1 Tablet by mouth in the morning. with food.. 100 Tab 5 Zoster Vac Recomb Adjuvanted 50 MCG/0.5ML Intramuscular Suspension Reconstituted (Shingrix) Inject 0.5 mL into a large muscle now and repeat dose in 60 to 180 days 1 Each 1 Vitamin D3 10 MCG (400 UNIT) Oral Tablet (Cholecalciferol) Take 1 Tablet by mouth in the morning. hydroCHLOROthiazide 25 MG Oral Tablet (Hydrodiuril) TAKE 1 TABLET BY MOUTH EVERY DAY IN THE [id number] Tablet 1 amLODIPine Besylate 10 MG Oral Tablet (Norvasc) TAKE 1 TABLET BY MOUTH EVERY DAY IN THE MORNING 90 Tablet 1 Atorvastatin Calcium 20 MG Oral Tablet (Lipitor) TAKE 1 TABLET BY MOUTH EVERY DAY IN THE MORNING 90Tablet 1 DULoxetine HCl 20 MG Oral Capsule Delayed Release Particles (Cymbalta) TAKE 1 CAPSULE BY MOUTH IN THE MORNING. DO NOT CUT, CRUSH OR CHEW. 90 Capsule 1 No current facility-administered medications for this visit. 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 adenomatous polyp, repeat 5 yrs Chronic rhinitis Encounter for antineoplastic chemotherapy 08/04/2015 Family history of colonic polyps Hypertension Tobacco use disorder Past Surgical History: Procedure Laterality Date BREAST RECONSTRUCTION W/SECURITY ANALYST Bilateral 07/03/2015 BREAST RECONSTRUCTION WITH TISSUE SECURITY ANALYST performed by Jere Souza MD at [facility] BREAST SURGERY PROCEDURE NEC biopsy x 3 left COLONOSCOPY W/ LESION REMOVAL, SNARE 12/12/2008 await path, repeat in 3-5 years COLONOSCOPY, DIAGNOSTIC (RECTUM) 01/25/2014 adenomatous polyp, repeat 5 yrs/COLONOSCOPY FLEXIBLE PROXIMAL DIAGNOSTIC performed by Reuben Muse MD at [facility] COLONOSCOPY, DIAGNOSTIC (RECTUM) 03/31/2019 poor prep, repeat/COLONOSCOPY FLEXIBLE PROXIMAL DIAGNOSTIC performed by Reuben Muse MD at [facility] COLONOSCOPY, DIAGNOSTIC (RECTUM) 04/23/2019 normal, repeat 3 yrs/COLONOSCOPY FLEXIBLE PROXIMAL DIAGNOSTIC performed by Nadya Ivy MD at [facility] COLONOSCOPY, DIAGNOSTIC (RECTUM) 07/25/2023 poor prep/COLONOSCOPY FLEXIBLE PROXIMAL DIAGNOSTIC performed by Nadya Ivy MD at [facility] COLONOSCOPY, DIAGNOSTIC (RECTUM) N/A 10/07/2023 COLONOSCOPY FLEXIBLE PROXIMAL DIAGNOSTIC performed by Juan Guerra MD at [facility] EXTRACTION,ERUPTED TOOTH OR EXPOSED ROOT edentulous IMPLANT, BIOLOGIC, SOFT TISSUE REINFORCE Bilateral 07/03/2015 IMPLANT, BIOLOGIC, SOFT TISSUE REINFORCE performed by Jere Souza MD at [facility] MASTECTOMY, SIMPLE, COMPLETE Bilateral 07/03/2015 MASTECTOMY SIMPLE COMPLETE performed by Em Briones MD at [facility] REMOVE TONSILS & ADENOIDS, UNDER 12 REPLACE TISSUE SECURITY ANALYST Bilateral 12/28/2015 REPLACEMENT EXPANDERS WITH PERMANENT PROSTHESIS performed by Jere Souza MD at [facility] REVISE UPPER EYELID/EXCESS SKIN Bilateral 05/07/2019 Dr. Smith-B/L Blephroplasty TOTAL ABD HYSTERECTOMY W/WO REMOVAL OF TUBE(S) Social History Socioeconomic History Marital status: Spouse name: Not on file Number of children: Not on file Years of education: Not on file Highest education level: Not on file Occupational History Not on file Tobacco Use Smoking status: Every Day Current packs/day: 1.50 Average packs/day: 1.5 packs/day for 45.0 years (67.5 ttl pk-yrs) Types: Cigarettes Passive exposure: Current Smokeless tobacco: Never Substance and Sexual Activity Alcohol use: Yes [...] Insecurity: No Food Insecurity (07/13/2024) Food Insecurity Do you need food for this week? (Adult - for ages 18 years and over): No Are you able to get enough food for your family? (Household - for ages 0-17 years): Not on file Does your family need food this week? (Household - for ages 0-17 years): Not on file Do you always have enough food for your family? (Household - for ages 0-17 years): Not on file Transportation Needs: No Transportation Needs (07/13/2024) Transportation Needs Do you have trouble getting a ride to medical visits or work? (Adult - for ages 18 years and over):Never True Does your family have a hard time [...] Stability Do you currently live in a mcfp or have no steady place to sleep at night? (Adult - for ages 18 years and over): No Do you think you are at risk of becoming homeless? (Adult - for ages 18 years and over): No Does your family worry about paying for [...] Age of Onset Heart Disorder Father age 64--AK Diabetes Mother Diabetes Brother Hypertension Sister REVIEW OF SYSTEMS: Any pertinent positives are noted in the HPI; all others are negative. PHYSICAL EXAM: Filed Vitals: 10/28/24 1413 BP: 120/60 Pulse: 92 SpO2: 98% Weight: 80.7 kg (178 lb) Height: 1.702 m (5' 7") Body mass index is 27.88 kg/m². ECOG Performance Status: 1 = Restricted in physically strenuous activity, ambulatory and able to dowork of light nature Constitutional: no acute distress HEENT: normal: normocephalic, atraumatic; no masses, tenderness, or adenopathy Eyes: sclera and conjunctiva normal Neck: supple, normal range of motion CV: normal rate and rhythm, no murmur, gallops or rub Chest: normal respiratory effort, lungs clear to auscultation and percussion Abdomen: normal: soft, bowel sounds normal, no masses, tenderness or organomegaly Extremities: no clubbing, cyanosis, or edema, otherwise grossly normal, warm, and dry Skin: warm, dry, intact: Neuro: alert, oriented to person, place, and time, normal mental status exam, gait normal, reflexesnormal and symmetric, sensory normal Psych: normal mood and affect, nonsuicidal, judgement normal, memory normal IMAGING: I personally reviewed and interpreted the images and reports of the following studies: 09/21/2024 PET scan: -- SAURAV nodule 1.1 x 0.9 cm SUV 4.6 -- 7 x 6 mm RLL pulmonary nodule 08/09/2024 LDCT -- SAURAV 1 cm nodule -- Stable RLL 7 mm 04/08/2024 LDCT -- Stable RLL 8 mm 10/03/2023 CT scan -- SAURAV 1 cm nodule -- Stable RLL 7 mm 06/24/2023 LDCT --SAURAV 1 cm nodule --Stable RLL 7.4 mm 12/16/2022 LDCT -- SAURAV nodule 4 mm adjacent to scarring -- RLL nodule 7 mm -- Scattered bilateral pulmonary nodes PHYSIOLOGY: 10/21/2024 Pulmonary Function Tests: FEV1: 2.04 L (86% predicted) DLCO: 59% predicted STS RISK CALCULATOR FOR LUNG CANCER RESECTION: Procedure Type: Robotic Wedge Operative Mortality = 0.629% Morbidity & Mortality = 5.79% Morbidity = 5.45% ASSESSMENT: 1. Joanie is a 74 year old female referred by MONO Monroe to the [facility] clinic for management of her SAURAV nodule. 2. Imaging reviewed with Joanie and her son Stacey. 3. Surgery discussed with Joanie and her son Stacey. PLAN: 1. Plan for a wedge resection possibly lobectomy. Jennifer PRIDE, MONO Nurse Practitioner Thoracic Surgery [facility]ORAC[facility] SURGERY [facility]IC @ [facility] 10/28/2024 I have reviewed the advanced practitioner's documentation on the date of service referenced in note, and I agree with, and take responsibility for the plan of care. ASSESSMENT: 1. New referral from Hanny VILLAREAL for evaluation and management of an 11 mm FDG-avid left upper lobe (SAURAV) anterior segment lung nodule initially discovered on CT lung screening. She also has a prior history of left breast cancer, including radiation. She is an active cigarette smoker. 2. Reasonably well preserved performance status. 3. Reasonable pulmonary status. -- FEV1 = 86% predicted -- DLCO = 59% predicted -- does admit to some exertional dyspnea 4. The patient's case was reviewed today in tumor board (thoracic surgery, medical oncology, radiation oncology, pathology, radiology, pulmonology, and behavioral health clinicians all in attendance and participating). All relevant data reviewed during tumor conference (imaging, pathology, pulmonary function studies, procedures, etc), as well as current NCCN guidelines (www.nccn.org) and available clinical trials. 5. Images, differential diagnoses, and management options reviewed with Joanie and her son, Stacey. We must remain concerned for primary lung cancer, although other benign etiologies remain possible as well. Given the peripheral location and small size of the nodule (located behind her left breast implant), it is reasonable to proceed directly to surgical resection, which hopefully would be limited toa wedge (segmentectomy or lobectomy if necessary). She also spoke to Dr. Hernandez today, but it appears radiation is contraindicated because the nodule is within the prior breast cancer treatment field. 6. We reviewed the goals, conduct, risks, benefits, and alternatives to pulmonary resection today. The primary risks during surgery are hypoxia, bleeding (including major and life threatening), and injury to surrounding structures. The primary post-operative risks include, but are not limited to, hy poxia, bleeding, air leaks, infection (wounds, lung, pleural space, urine, blood, etc), atrial fibrillation, AK, CVA, DVT, PE, chylothorax, need for additional procedures/surgery, human error, ,and other imponderables. She would like to proceed with surgery. PLAN: 1. Surgery soon as follows: -- robotic left VATS (thoracoscopy) -- upper lobe wedge resection -- segmentectomy if necessary -- lobectomy if necessary -- lymphadenectomy 2. The rationale, risks, benefits, and alternatives to the proposed surgical procedure were discussed thoroughly with the patient and her son. I specifically discussed the potential for ANY possible complication, including serious morbidity and/or mortality as a direct result of the operation. The more common or typical complications of the proposed procedure were discussed, as well as the potential for human error on the part of the healthcare team. All of the patient's questions, and those ofher son, were answered to apparent satisfaction. The patient willingly provided informed consent. 3. I spent a total of Greater than 55 mins (exact time 60 mins) on the date of service in preparation, delivery, and documentation of the care provided to Joanie Mcclure excluding any time spent in the performance of separately billed services or time spent by another provider/QHP. Lee Gomez MD FACS System Chief, Thoracic Surgery [facility] [place] [address] [place] [phone] Cosigned by Lee Gomez MD at 11/04/2024 2:15 PM EST documented in this encounter Plan of Treatment Upcoming Encounters Date Type Department Care Team (Latest Contact Info) Description 11/17/2024 9:07 AM EST Hospital En[place] [facility] [facility] [address] [facility] [place] [phone] Lee Gomez MD [address] [facility] [facility] [place] [address] 11/17/2024 9:07 AM EST Anesthesia Event [place] [facility] [address] [place] [phone] Jeny Lozada RN 11/17/2024 9:07 AM EST - 11/17/2024 1:28 PM EST Surgery [place] [facility] [facility] [address] [facility] [place] [phone] Lee Gomez MD [address] [place] [address] ROBOTIC THORACOSCOPY W/ WEDGE RESECTION, INITIAL 01/28/2025 10:20 AM EDT Office Visit Family [address] [phone] Rafael Ochoa [address] [place] [phone] 02/15/2025 10:40 AM EDT Office Visit Neurology [facility] [place] [address] [facility] [place] [address] Corey Smiley MD [address] [facility] [address] 09/02/2025 10:00 AM EST Office Visit Family [address] [phone] Marge Leal MD [address] [place] [address] [place] [id number] Scheduled Procedures Name Priority Associated Diagnoses Date/Ti me ROBOTIC THORACOSCOPY W/ WEDG E RESECTION, INITIAL Nodule of upper lobe of left lung 11/17/2024 9:07 AM EST ROBOTIC THORACOSCOPY WITH LYMPHADENECTOMY Nodule of upper lobe of left lung 11/17/2024 9:07 AM EST COLONOSCOPY FLEXIBLE PROXIMA L DIAGNOSTIC Recall Constipation, unspecified constipation type Scheduled Referrals Name Type Priority Associated Diagnoses Orde r Schedule BLOOD MANAGEMENT REFERRAL Referral Within 10 days (routine) Nodule of upper lobe of left lung Ordered: 10/28/2024 Health Maintenance Due Date Last Done Comments [...] 07/07/2019, 07/27/2018, Additional history exists Albumin/Creatinine Ratio 04/13/20252 024, 12/25/2022, 09/03/2021, Additional history exists CKD PHOS USE SMARTSET 89952 04/13/202503/29, 12/25/2022, 09/03/2021, Additional history exists GFR 04/28/2025 10/29/2024, 03/29, 08/22/2023, Additional history exists CKD HGB USE SMARTSET 24135 10/29/202510/29, 10/29/2024, 10/10/2023, Additional history exists O2 ASSESSMENT COMPLETED IN PAST YEAR FOR COPD 10/29/2025 10/29/2024 Colonoscopy 10/07/2026 10/07/2023, 05/2024, 07/25/2023, Additional history exists Colorectal Cancer Screening 10/07/2026 DTap/Tdap Vaccines (3 - Td or Tdap) 09/20/2029 09/20/2019, 01/23/2009 Pneumococcal Vaccine: 50+ Years Completed 07/27/2018, 09/24/2016, 01/23/2009 VITAMIN D LEVEL ONCE IN A LIFETIME-USE SMARTSET# 95097 Completed 06/27/2023, 03/01/2019, 03/26/2017, Additional history exists Lung Cancer Screening Completed 09/21/2024 , 10/03/2023, 06/24/2023, Additional history exists HPV (Gardasil) Vaccine Aged Out No lo nger eligible based on patient's age to complete this topic Hepatitis B Vaccine Aged Out No longe r eligible based on patient's age to complete this topic MENINGOCOCCAL (MENACTRA/MENVEO) Aged Out No longer eligible based on patient's age to complete this topic documented as of this encounter Medical Devices Implanted Type Area Guard Museum Device Identifier Shelf Expiration Date Model / Serial / Lot Graft Allomax 1.0 6x16cm - [id number] - [id number] Implanted:Qty: 1 on 07/03/2015 by Jere Souza MD [place] [facility] Right: Breast CR BARD : DAVOL 08/28/2019 [id number] / [id number] / [id number] Graft Allomax 1.0 6x16cm - [id number] - [id number] Implanted:Qty: 1 on 07/03/2015 by Jere Souza MD [place] [facility] Left: Breast CR BARD : DAVOL 04/28/2017 [id number] / [id number] / [id number] Implant Breast Li+ 350-2251bc - [id number] Implanted:Qty: 1 on 12/28/2015 by Jere Souza MD [place] [facility] Left: Breast MENTOR DANYELLE 03/28/2016 [id number] / / [id number] Implant Breast Li+ 350-2251bc - [id number] Implanted:Qty: 1 on 12/28/2015 by Jere Souza MD [place] [facility] Right: Breast MENTOR DANYELLE 03/28/2016 [id number] / / [id number] documented as of this encounter Results * EKG (10/29/2024 1:50 PM EST) 10/29/2024 1:50 PM EST Narrative Procedure Note Yessenia Harkins MD - 10/29/2024 1:50 PM EST REASON FOR STUDY: PRE OP CONCLUSIONS: Normal sinus rhythm Normal ECG When compared with ECG of 14-Jul-2019 12:22, No significant change was found Ventricular Rate: 74 Atrial Rate: 74 WI Interval: 170 QRS Duration: 84 QT/QTc: 416/461 ms P-R-T Campo: 59 : -7 : 49 degrees Lee Gomez MD EKG Final Resul t [facility] * TYPE AND SCREEN (10/29/2024 1:00 PM EST) Specimen Expiration Date 10/30/2024 1:41 PM EST LAB[facility] Blood Venous blood specimen / Unknown Venipuncture / Unknown 10/29/2024 1:00 PM EST 10/29/2024 1:00 PM EST Narrative LAB[facility] - 10/30/2024 1:41 PM EST Test Canceled for reorder purposes. us Lee Gomez MD LAB BLOOD BANK TEST ORDERAB LES Final Result [facility] [address] [place] [address] * BASIC METABOLIC PANEL (10/29/2024 1:00 PM EST) BUN 17 6 - 20 mg/dL 10/29/2024 9:24 PM EST [facility] CREATININE 1.0 0.5 - 1.0 mg/dL 10/29/2024 9:24 PM EST [facility] EGFR 62 >=60 mL/min 10/29/2024 9:24 PM EST [facility] Comment:eGFR is calculated b ased on the CKD-EPI 2020 equation. SODIUM 142 135 - 146 mmol/L 10/29/2024 9:24 PM EST [facility] POTASSIUM 4.1 3.5 - 5.1 mmol/L 10/29/2024 9:24 PM EST [facility] CHLORIDE 101 98 - 107 mmol/L 10/29/2024 9:24 PM EST [facility] CO2 28 22 - 32 mmol/L 10/29/2024 9:24 PM EST [facility] ANION GAP 13 7 - 15 mmol/L 10/29/2024 9:24 PM EST [facility] GLUCOSE 99 70 - 120 mg/dL 10/29/2024 9:24 PM EST [facility] CALCIUM 9.5 8.4 - 10.2 mg/dL 10/29/2024 9:24 PM EST [facility] Blood Venous blood specimen / Unknown Venipuncture / Unknown 10/29/2024 1:00 PM EST 10/29/2024 1:00 PM EST Lee Gomez MD LAB BLOOD ORDERABLES Final Result [facility] [address] [place] [address] documented in this encounter Visit Diagnoses Diagnosis Nodule of upper lobe of left lung- Primary Psychological factors affecting medical condition Psychic factors associated with diseases classified elsewhere Nodule of upper lobe of left lung- Primary Pre-operative examination- Primary Preoperative examination, unspecified Nodule of upper lobe of left lung Nodule of upper lobe of left lung documented in this encounter Advance Directives * Full Code (Latest Code Status on File) Date Activated Date Inactivated Comments 12/28/2015 9:22 AM 12/29/2015 4:40 PM This order re flects the patients wishes and were consensually agreed upon. * Full Code Date Activated Date Inactivated Comments 07/03/2015 11:17 AM 07/05/2015 2:47 PM This order reflects the patients wishes and were consensually agreed upon. Question Answer Comments Discussion of Advance Directives occurred with: Not Discussed Care Teams Financial Services Director Relationship Specialty Start Date End Date Marge Leal MD [address] [place] [address] [place] [phone] PCP - General Family Medicine 04/13/24 documented as of this encounter
--- OUTSIDE RECORDS SUMMARY | 2025-01-12 18:04 | External Medical Summary ---
Author Name Unknown Address Unknown Organization : Laboratory Report Ordering Provider Test Date Status PRADIP ALVARES 11/17/2024 14:05:35 Final Observation Date Value Abnormality Reference (Units ) Status Glucose Point of Care 11/17/2024 14:05:35 159 Above high normal 70-120 (mg/dL) Final Performing Location
--- OUTSIDE RECORDS SUMMARY | 2025-01-12 18:04 | External Medical Summary ---
Author Name Unknown Address Unknown Organization K01:[facility]ATORY [facility] - [address] [facility] [address] Laboratory Report Ordering Provider Test Date Status AMOS BRENNAN 11/18/2024 05:29:00 Final Observation Date Value Abnormality Reference (Units ) Status BUN 11/18/2024 05:29:00 28 Above high normal 6-20 (mg/dL) Final Creatinine 11/18/2024 05:29:00 1.2 Above high normal 0.5-1.0 (mg/dL) Final Glomerular filtration rate/1.73 sq M.predicted [Volume Rate/Area] in Serum, Plasma or Blood by Creatinine-based formula (CKD-EPI) 11/18/2024 05:29:00 48 Below low normal >=60 (mL/min) Final eGFR is calculated based on the CKD-EPI 2020 equation. Sodium 11/18/2024 05:29:00 138 135-146 (m mol/L) Final Potassium 11/18/2024 05:29:00 3.5 3.5-5.1 (m mol/L) Final Cl 11/18/2024 05:29:00 98 98-107 (mm ol/L) Final CO2 11/18/2024 05:29:00 24 22-32 (mmo l/L) Final Anion gap 11/18/2024 05:29:00 16 Above high normal 7- 15 (mmol/L) Final Glucose 11/18/2024 05:29:00 137 Above high normal 70 -120 (mg/dL) Final Calcium 11/18/2024 05:29:00 8.9 8.4-10.2 ( mg/dL) Final Albumin 11/18/2024 05:29:00 3.9 3.8-5.0 (g /dL) Final Phosphate 11/18/2024 05:29:00 4.4 2.5-4.8 (m g/dL) Final Performing Location LABORATORY [facility] - [address] [place] [address]
--- OUTSIDE RECORDS SUMMARY | 2025-01-12 18:04 | External Medical Summary ---
Author Name Unknown Address Unknown Organization K01:[facility] [address] [facility] [address] Laboratory Report Ordering Provider Test Date Status AMOS BRENNAN 11/19/2024 04:50:00 Final Observation Date Value Abnormality Reference (Units ) Status BUN 11/19/2024 04:50:00 23 Above high normal 6-20 (mg/dL) Final Creatinine 11/19/2024 04:50:00 1.1 Above high normal 0.5-1.0 (mg/dL) Final Glomerular filtration rate/1.73 sq M.predicted [Volume Rate/Area] in Serum, Plasma or Blood by Creatinine-based formula (CKD-EPI) 11/19/2024 04:50:00 54 Below low normal >=60 (mL/min) Final eGFR is calculated based on the CKD-EPI 2020 equation. Sodium 11/19/2024 04:50:00 136 135-146 (m mol/L) Final Potassium 11/19/2024 04:50:00 3.1 Below low normal 3.5 -5.1 (mmol/L) Final Cl 11/19/2024 04:50:00 100 98-107 (mm ol/L) Final CO2 11/19/2024 04:50:00 29 22-32 (mmo l/L) Final Anion gap 11/19/2024 04:50:00 7 7-15 (mmol /L) Final Glucose 11/19/2024 04:50:00 106 70-120 (mg /dL) Final Calcium 11/19/2024 04:50:00 8.7 8.4-10.2 ( mg/dL) Final Albumin 11/19/2024 04:50:00 3.6 Below low normal 3.8 -5.0 (g/dL) Final Phosphate 11/19/2024 04:50:00 2.3 Below low normal 2.5 -4.8 (mg/dL) Final Performing Location [facility] [place] [address] [place] [address]
--- OUTSIDE RECORDS SUMMARY | 2025-01-12 18:04 | External Medical Summary | Summary of Care ---
Author Name Unknown Organization [facility] Address [address] [place] [address] Phone [phone] Care Team Providers Care Manager Of Compliance Name Role Phone Marge Leal MD Primary Care Provide r Reason for Visit * Auth/Cert Specialty Diagnoses / Procedures Referred By Tj t Referred To Contact Diagnoses Nodule of upper lobe of left lung Nodule of upper lobe of left lung [R91.1] Procedures THORACOSCOPY W/ WEDGE RESECTION, INITIAL LYMPHADENECTOMY VIA THORACOSCOPY ROBOTIC THORACOSCOPY W/ WEDGE RESECTION, INITIAL ROBOTIC THORACOSCOPY WITH LYMPHADENECTOMY Lee Gomez MD [address] [place] [address] Phone: tel: fax: OR [facility], OPERATING ROOM [facility] [address] [place] [address] Phone: tel: Referral ID Status Reason Start Date Expiration Date Visits Re quested Visits Authorized [id number] Encounter Details Date Type Department Care Team (Latest Contact Info) Description 11/17/2024 7:35 AM EST - 11/21/2024 10:18 AM EST Hospital Encounter [facility] 8, [facility] Advanced Medicine 8th Floor [address] [place] [address] Lee Gomez MD [address] [place] [address] Pt Handout (on AVS) Discharge Disposition: Home - Self Care Allergies Active Allergy Reactions Criticality Noted Date Comments Varenicline Neuro complications (Please comment) Low 08/23/2019 Vivid nightmares Lisinopril Edema face/lips/tongue High 03/29/2014 Metoprolol Tartrate Edema face/lips/tongue,Other (Please comment) High 05/07/2019 Facial swelling, airway closing up documented as of this encounter (statuses as of 11/21/2024) Medications aspirin 81 MG chewable tabletIndications: Asymptomatic [...] Moderate (ongoing therapy). 10 Tablet 5 Active documented as of this encounter (statuses as of 11/21/2024) Active Problems Problem Noted Date Diagnosed Date [...] as of this encounter (statuses as of 11/21/2024) Resolved Problems Problem Noted Date Diagnosed Date [...] as of this encounter (statuses as of 11/21/2024) Immunizations Name Administration Dates Next Due Pneumococcal [...] Date Smoking Tobacco: Every Day Cigarettes 1.5 61.1 Started: 1962 Passive Smoke Exposure: Current Smokeless [...] Sign Reading Time Taken Comments Blood Pressure 129/55 11/21/2024 7:45 AM EST Pulse 64 11/21/2024 7:45 AM EST Temperature 36.4 °C (97.5 °F) 11/21/2024 7:45 AM ES T Respiratory Rate 18 11/21/2024 7:45 AM EST Oxygen Saturation 86% 11/21/2024 7:45 AM EST Inhaled Oxygen Concentration - - Weight 78.5 kg (173 lb 1.6 oz) 11/17/2024 9:00 P M EST Height 170.2 cm (5' 7") 11/17/2024 7:50 AM EST Body Mass Index 27.11 11/17/2024 7:50 AM EST documented in this encounter Functional Status * Are you deaf or do you have serious difficulty hearing? Answer Date of Assessment Author No 11/17/2024 7:33 PM EST Kadie Domingo RN * Are you blind or do you have serious difficulty seeing, even when wearing glasses? Answer Date of Assessment Author No 11/17/2024 7:33 PM EST Kadie Domingo RN * Do you have serious difficulty walking or climbing stairs? (5 years old or older) Answer Date of Assessment Author No 11/17/2024 7:33 PM EST Kadie Domingo RN * Do you have difficulty dressing or bathing? (5 years old or older) Answer Date of Assessment Author No 11/17/2024 7:33 PM EST Kadie Domingo RN * Because of a physical, mental, or emotional condition, do you have difficulty doing errands alone such as visiting a doctor’s office or shopping? (15 years old or older) Answer Date of Assessment Author No 11/17/2024 7:33 PM EST Kadie Domingo RN documented as of this encounter Mental Status * Because of a physical, mental, or emotional condition, do you have serious difficulty concentrating, remembering, or making decisions? 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 Other Significant Diagnoses: none CONDITION ON DISCHARGE: stable Cognition: normal DISPOSITION ON DISCHARGE: home FOLLOW-UP: Future Appointments Appt Date/Time Provider Department 12/06/2024 1:30 PM Lee Gomez MD Thoracic Surg [facility] 01/28/2025 10:20 AM Rafael Ochoa CRNP Family [facility] 02/15/2025 10:40 AM Corey Smiley MD Neurology [facility] 09/02/2025 10:00 AM Marge Leal MD Family [facility] Inpatient test results pending: Pathology MEDICATIONS ON DISCHARGE: MEDICATION UPDATES AT DISCHARGE START taking these medications INSTRUCTIONS oxyCODONE 5 MG immediate release tablet Commonly known as: Oxy IR Take 1 Tablet by mouth every 6 hours as needed for Pain, Severe or Pain, Moderate (ongoing therapy). CONTINUE taking these medications INSTRUCTIONS amLODIPine 10 MG Tablet Commonly known as: Norvasc TAKE 1 TABLET BY MOUTH EVERY DAY IN THE MORNING aspirin 81 MG chewable tablet Take 1 Tablet by mouth in the morning. with food.. atorvaSTATin 20 MG Tablet Commonly known as: Lipitor TAKE 1 TABLET BY MOUTH EVERY DAY IN THE MORNING DULoxetine 20 MG Cpep Commonly known as: Cymbalta TAKE 1 CAPSULE BY MOUTH IN THE MORNING. DO NOT CUT, CRUSH OR CHEW. hydroCHLOROthiazide 25 MG Tablet Commonly known as: Hydrodiuril TAKE 1 TABLET BY MOUTH EVERY DAY IN THE MORNING Tylenol Extra Strength 500 MG Tablet Generic drug: Acetaminophen Take 2 Tablets by mouth every 6 hours as needed. Tylenol PM Extra Strength 500-25 MG Tablet Generic drug: diphenhydrAMINE-APAP (sleep) Take 2 Tablets by mouth at bedtime as needed for Sleep. Vitamin D3 400 UNIT Tablet Commonly known as: Cholecalciferol Take 1 Tablet by mouth in the morning. Zoster Vac Recomb Adjuvanted 50 MCG/0.5ML injection Commonly known as: Shingrix Inject 0.5 mL into a large muscle now and repeat dose in 60 to 180 days ALLERGIES: Lisinopril, Metoprolol tartrate, and Chantix [varenicline] INSTRUCTIONS: Activity: As tolerated Diet: normal diet Code Status: Full Code Indwelling devices: none ADMISSION HISTORY & PHYSICAL EXAM (focused): HPI: Joanie Mcclure is a 74 year old female presenting for evaluation of enlarging SAURAV FDG avid nodule. She is here with her son Matthew today. She has a past medical history of [...] walks one flight to a landing at [facility] and then requires a break before finishing the flight. She doesn't have to use steps at home. Exercise- Walks around the house. She rides her fausto. She moves around the house a lot during the day. 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 She is a current smoker. She smokes 1.5 ppd, 67.5 pack years. She is smoking 1 pack or less a day. Was smoking 2-3 packs a day. She was in the ER with nicotine withdrawal. ASSESSMENT: 1. New referral from Aysha VILLAREAL for evaluation and management of an [...] options reviewed with Joanie and her son, Matthew. We must remain concerned for primary lung [...] pleural space, urine, blood, etc), atrial fibrillation, SD, CVA, DVT, PE, chylothorax, need for additional procedures/surgery, human error, ,and other imponderables. She would like to proceed with surgery. PLAN: 1. Surgery soon as follows: -- robotic left VATS (thoracoscopy) -- upper lobe wedge resection -- segmentectomy if necessary -- lobectomy if necessary -- lymphadenectomy HOSPITAL COURSE (focused): On 11/17/2024, the patient was taken to the OR and underwent a robotic left upper lobe wedge resection. There were no operative complications. Hemodynamics remained stable. All prior to admission medications were restarted as appropriate. The patient's chest tube was removed on POD#3. The remainder of the patient's post op course was unremarkable and met all criteria for discharge. The patient was discharged on POD #3. Operations & Procedures: Robotic left VATS (thoracoscopy) -- upper lobe therapeutic lung wedge resection and lymphadenectomy Complications: none applicable SIGNIFICANT RESULTS: Vital Signs (last recorded): Most Recent Systolic BP: 129 mmHg (11/21/24744) Most Recent Diastolic BP: 55 mmHg (11/21/24744) Pulse: 64 (11/21/24744) Resp: 18 (11/21/24744) Most Recent Temperature: 36.39 C (11/21/24744) Weight: 78.5 kg (173 lb 1.6 oz) (11/17/242099) SpO2: 86 % (11/21/24744) O2 flow rate: 0 L/MIN (11/21/24744) Labs: CHEMISTRY: BUN, Creatinine, GFR Estimated, Sodium, Potassium, Chloride, Carbon Dioxide, Glucose, Calcium (see below for most recent value): Lab Results Component Value Date/Time BUN 19 11/20/2024 05:25 AM BUN 22 (H) 08/14/2020 09:34 AM CREAT 0.9 11/20/2024 05:25 AM CREAT 1.2 (H) 08/14/2020 09:34 AM GFRESTIMATED 45.6 (L) 08/14/2020 09:34 AM NA 137 11/20/2024 05:25 AM NA 139 08/14/2020 09:34 AM POTASSIUM 3.3 (L) 11/20/2024 05:25 AM POTASSIUM 3.2 (L) 11/17/2024 11:46 AM POTASSIUM 3.9 08/14/2020 09:34 AM CL 98 11/20/2024 05:25 AM CL 101 08/14/2020 09:34 AM CO2 28 11/20/2024 05:25 AM CO2 26 08/14/2020 09:34 AM CA 8.6 11/20/2024 05:25 AM CA 9.8 08/14/2020 09:34 AM BLOOD COUNT: WBC, Hgb, Platelets (see below for most recent value): Lab Results Component Value Date/Time WBC 6.07 11/18/2024 05:29 AM WBC 3.65 (L) 08/14/2020 09:34 AM HGB 10.9 (L) 11/18/2024 05:29 AM HGB 14.4 08/14/2020 09:34 AM PLT 220 11/18/2024 05:29 AM PLT 254 08/14/2020 09:34 AM Imaging (focused): Lungs remained well expanded on post operative x-rays CONSULTS ORDERED: PHARMACY CONSULT IP REFERRING PHYSICIAN: REF: AYSHA STEIN PRIMARY CARE PROVIDER: PCP: Marge Leal MD [address] [place] [address] / Brendan [place] [phone] (office) [phone] (fax) Note: To contact a physician responsible for this patient’s hospital care, please call [employer] [phone]. documented in this encounter Discharge Instructions * Discharge Instr - AVS* Holley Beth PA-C - 11/17/2024 3:50 PM EST Discharge Date: {date:} You may call the department of Thoracic Surgery at [phone] during business hours for any questions or test results. For after-hours emergencies call [phone] and have the doctor or physicianassistant admissions dean paged. The information below provides you with the instructions and the list of medications you need to betaking following discharge from the hospital. If you have any questions, please ask before leaving.Please carry this letter with you when you see your doctor in the clinic. If you have questions, you can reach us at the numbers above. Brief summary of your inpatient care: You were admitted to Thoracic Surgery for a surgical procedure. Your doctors during this hospitalization included: (s)Asuncion Gomez Your primary diagnosis at discharge was: lung cancer Inpatient test results pending: pathology Operations & Procedures: lung resection (partial removal of lung) Complications: none Advance Directive Documented: Advance Directive Does the Patient have an Advance Directive? No Diet: Resume your normal (pre-admission) diet. Driving: Do not drive until you are off narcotics for one full week and can walk normally and firmly apply the brake without pain. Date you may return to work or school: To be determined at your follow-up office visit. See your primary care physician (Marge Leal MD) for a follow up appointment within 1-2 week(s). Follow up: Thoracic Surgery Clinic in 2 weeks. Special Instructions: ACTIVITY: You are encouraged to be as active as possible. You may climb stairs as tolerated withoutrestriction. RESTRICTIONS: You may lift objects as long as it doesn't cause excessive pain. WOUND CARE/SURGICAL SITE CARE: A small amount of drainage is normal. You may shower daily. Avoid pool, hot tub or bath for at least 7 days. Clean all wounds daily. Apply gauze area, as needed, to anyopen or draining wounds until sealed and dry. documented in this encounter H&P Notes * Lee Gomez MD - 11/17/2024 8:15 AM EST HISTORY & PHYSICAL INTERVAL NOTE - Thoracic Surgery Service [facility]-[address] [address] History and Physical Update: Name: Joanie Mcclure Location: OR [facility]/[place] Date: 11/17/2024 Time: 8:15 AM DATE OF HISTORY AND PHYSICAL: 10/28/2024 BP: 123 mmHg/65 mmHg (11/17/24801) Pulse: 85 (11/17/24801) Resp: 23 (11/17/24801) Temp: 36.28 C (11/17/24801) Temp Summary: Temp Min: 36.3 °C (97.3 °F) Max: 36.3 °C (97.3 °F) SpO2: 95 % (11/17/24801) O2 flow rate: Supplemental O2 Delivery: Room Air, None (11/17/24801) Heart Exam: regular rate and rhythm Lung Exam: clear to auscultation bilaterally Other Pertinent Physical Exam: no acute distress No major new events since we last met in the office. She has good recall of today's planned surgery. -- robotic left VATS -- upper lobe wedge resection -- segmentectomy if necessary -- lobectomy if necessary -- lymphadenectomy Bronchoscopy Risk Assessment: Is this patient suspected of having pulmonary Mycobacterium tuberculosis or microorganism spread via airborne dissemination? No Left chest marked for surgical incisions. All questions answered to apparent satisfaction. Source Note - Ulises JenniferMONO - 10/28/2024 1:47 PM EST THORACIC SURGERY CLINIC @ [facility] 10/28/2024 HPI: Joanie Mcclure is a 74 year old female presenting for evaluation of enlarging SAURAV FDG avid nodule. She is here with her son Matthew carr. She has a past medical history [...] walks one flight to a landing at [employer] and then requires a break before finishing the flight. She doesn't have to use steps at home. Exercise- Walks around the house. She rides her fausto. She moves around the house a lot during the day. 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 She is a current [...] TABLET BY MOUTH EVERY DAY IN THE INPUTYQ25 Tablet 1 amLODIPine Besylate 10 MG Oral [...] Surgical History: Procedure Laterality Date BREAST RECONSTRUCTION W/PRE SCHOOL MANAGER Bilateral 07/03/2015 BREAST RECONSTRUCTION WITH TISSUE PRE SCHOOL MANAGER performed by Jere Souza MD at OR [facility] BREAST SURGERY PROCEDURE NEC biopsy x 3 left COLONOSCOPY W/ LESION REMOVAL, SNARE 12/12/2008 await path, repeat in 3-5 years COLONOSCOPY, DIAGNOSTIC (RECTUM) 01/25/2014 adenomatous polyp, repeat 5 yrs/COLONOSCOPY FLEXIBLE PROXIMAL DIAGNOSTIC performed by Reuben Muse MD at ENDOSCOPY [facility] COLONOSCOPY, DIAGNOSTIC (RECTUM) 03/31/2019 poor prep, repeat/COLONOSCOPY FLEXIBLE PROXIMAL DIAGNOSTIC performed by Reuben Muse MD at ENDOSCOPY [facility] COLONOSCOPY, DIAGNOSTIC (RECTUM) 04/23/2019 normal, repeat 3 yrs/COLONOSCOPY FLEXIBLE PROXIMAL DIAGNOSTIC performed by Nadya Ivy MD at ENDOSCOPY [facility] COLONOSCOPY, DIAGNOSTIC (RECTUM) 07/25/2023 poor prep/COLONOSCOPY FLEXIBLE PROXIMAL DIAGNOSTIC performed by Nadya Ivy MD at ENDOSCOPY [facility] COLONOSCOPY, DIAGNOSTIC (RECTUM) N/A 10/07/2023 COLONOSCOPY FLEXIBLE PROXIMAL DIAGNOSTIC performed by Juan Guerra MD at ENDOSCOPY [facility] EXTRACTION,ERUPTED TOOTH OR EXPOSED ROOT edentulous IMPLANT, BIOLOGIC, SOFT TISSUE REINFORCE Bilateral 07/03/2015 IMPLANT, BIOLOGIC, SOFT TISSUE REINFORCE performed by Jere Souza MD at [facility] MASTECTOMY, SIMPLE, COMPLETE Bilateral 07/03/2015 MASTECTOMY SIMPLE COMPLETE performed by Em Briones MD at OR [facility] REMOVE TONSILS & ADENOIDS, UNDER 12 REPLACE TISSUE PRE SCHOOL MANAGER Bilateral 12/28/2015 REPLACEMENT EXPANDERS WITH PERMANENT PROSTHESIS performed by Jere Souza MD at OR [facility] REVISE UPPER EYELID/EXCESS SKIN Bilateral 05/07/2019 Dr. [...] Stability Do you currently live in a long term or have no steady place to sleep [...] Age of Onset Heart Disorder Father age 64--SD Diabetes Mother Diabetes Brother Hypertension Sister REVIEW [...] female referred by MONO Monroe to the [facility] clinic for management of her SAURAV nodule. 2. Imaging reviewed with Joanie and her son Matthew. 3. Surgery discussed with Joanie and her son Matthew. PLAN: 1. Plan for a wedge resection possibly lobectomy. Jennifer PRIDE, METALSMITH HELPER Nurse Practitioner Thoracic Surgery THORACIC SURGERY CLINIC @ [facility] 10/28/2024 I have reviewed the advanced practitioner's documentation on the date of service referenced in note, and I agree with, and take responsibility for the plan of care. ASSESSMENT: 1. New referral from Aysha VILLAREAL for evaluation and management of an [...] options reviewed with Joanie and her son, Matthew. We must remain concerned for primary lung [...] pleural space, urine, blood, etc), atrial fibrillation, SD, CVA, DVT, PE, chylothorax, need for additional [...] Gomez MD FACS System Chief, Thoracic Surgery [facility] [place] [address] [place] [address] Cosigned by Lee Gomez MD at 11/04/2024 2:15 PM EST documented in this encounter Consult Notes * Kaleb Dickson RPh - 11/18/2024 8:08 AM ESTAssociated Order(s): PHARMACY CONSULT IP Pharmacy has reviewed patient's current medication orders and has timed medication administration times to fall between the hours of 0600 and 2200 where appropriate. Please contact pharmacy at [phone] if there are any other needs. Kaleb Dickson, PharmD, BCPS documented in this encounter Nursing Notes * Miri Bear, SN - 11/18/2024 7:45 AM EST See the Licensed Professional's note for clinical information and recommendations. The signature ofthe Licensed Professional on this note acknowledges only the presence of the student's note within the patient record. By regulation, students' notes are for training and educational purposes only and play no part in the documentation of care or clinical treatment of patients. Patient assessment completed. See flowsheet for details. Lung sounds clear but diminished bilaterally. Chest tube dressing intact with serosanguinous drainage noted. Chest tube draining well with no signs of air leak. Patient complains of slight pain at chest tube site on left side. Patient currently on 2L of oxygen via nasal cannula. Assisted patient to restroom and patient became slightly shortof breath with exertion. Cosigned by Oanh Oneil, KB at 11/18/2024 11:21 AM EST * Rivka Larry RN - 11/17/2024 11:15 PM EST Dual Licensed Skin Assessment completed by Rivka Larry RN and Itzel. The patient is/has a N/A Skin Breakdown (includes non blanchable erythema): Yes - Surgical/Procedural changes only. * Shaylee Borja NA - 11/17/2024 9:39 PM EST Post Anesthesia Care Unit Transport Note [address] [address] Dept. Joanie Mcclure Transported from [facility] to : [facility] Time: 2044 Care of patient transferred to: [facility] Transported via: Bed Belongings with Patient: YES Pulse : 78 Temp : 97.9 BP : 142/67 Respirations : 18 Pulse Ox : 94 O2 : room air SCDS: On but not activated/no machine * Kadie Domingo RN - 11/17/2024 2:15 PM EST PERIOP TO IP HANDOFF COMMUNICATION NOTE [address] [address] Name: Joanie Mcclure AGE: [id number] year old Location: OR [facility]/OR Date: 11/17/2024 Attention to: Rivka Larry RN Report from: KADIE DOMINGO RN Patient arriving via: Bed Time of call: [phone] Phone Ext: [phone] Reason for SBAR (Situation, Background, Assessment, Recommendation) handoff: Transfer Sending to: [place] [id number] Emotional/Personal Events & Special Needs: n/a Prescriptions in chart: No Code Status: Full Code Safety Concerns: fall risk Allergies: Lisinopril, Metoprolol tartrate, and Chantix [varenicline] PMH: Past Medical History: Diagnosis Date Benign neoplasm [...] Repeat in 6 months. Tobacco use disorder PSH: Past Surgical History: Procedure Laterality Date BREAST RECONSTRUCTION W/PRE SCHOOL MANAGER Bilateral 07/03/2015 BREAST RECONSTRUCTION WITH TISSUE PRE SCHOOL MANAGER performed by Jere Souza MD at [facility] BREAST SURGERY PROCEDURE NEC biopsy x 3 left COLONOSCOPY W/ LESION REMOVAL, SNARE 12/12/2008 await path, repeat in 3-5 years COLONOSCOPY, DIAGNOSTIC (RECTUM) 01/25/2014 adenomatous polyp, repeat 5 yrs/COLONOSCOPY FLEXIBLE PROXIMAL DIAGNOSTIC performed by Reuben Muse MD at [facility]OSCOPY [facility] COLONOSCOPY, DIAGNOSTIC (RECTUM) 03/31/2019 poor prep, repeat/COLONOSCOPY FLEXIBLE PROXIMAL DIAGNOSTIC performed by Reuben Muse MD at [facility] COLONOSCOPY, DIAGNOSTIC (RECTUM) 04/23/2019 normal, repeat 3 yrs/COLONOSCOPY FLEXIBLE PROXIMAL DIAGNOSTIC performed by Nadya Ivy MD at [facility] COLONOSCOPY, DIAGNOSTIC (RECTUM) 07/25/2023 poor prep/COLONOSCOPY FLEXIBLE PROXIMAL DIAGNOSTIC performed by Nadya Ivy MD at [facility] COLONOSCOPY, DIAGNOSTIC (RECTUM) N/A 10/07/2023 COLONOSCOPY FLEXIBLE PROXIMAL DIAGNOSTIC performed by Juan Guerra MD at [facility] EXTRACTION,ERUPTED TOOTH OR EXPOSED ROOT edentulous IMPLANT, BIOLOGIC, SOFT TISSUE REINFORCE Bilateral 07/03/2015 IMPLANT, BIOLOGIC, SOFT TISSUE REINFORCE performed by Jere Souza MD at [facility] MASTECTOMY, SIMPLE, COMPLETE Bilateral 07/03/2015 MASTECTOMY SIMPLE COMPLETE performed by Em Briones MD at [facility] REMOVE TONSILS & ADENOIDS, UNDER 12 REPLACE TISSUE PRE SCHOOL MANAGER Bilateral 12/28/2015 REPLACEMENT EXPANDERS WITH PERMANENT PROSTHESIS performed by Jere Souza MD at OR [facility] REVISE UPPER EYELID/EXCESS SKIN Bilateral 05/07/2019 Dr. Smith-B/L Blephroplasty TOTAL ABD HYSTERECTOMY W/WO REMOVAL OF TUBE(S) Isolation: Isolation: Procedure: Procedures:Robotic left VATS (thoracoscopy) -- upper lobe therapeutic lung wedge resection and lymphadenectomy Type of Anesthesia: General endotracheal anesthesia Block: n/a IV intake: 1100 mL EBL: OR: 5 mL PACU: 0 mL Urine output: OR 0 mL PACU 0 Extended PACU 300ml IUBC (Maurice): Incision location: left flank Dressing location: left flank Time of last skin assessment: 1415 Pressure injuries or areas of concern: n/a Lines: Peripheral Line Lower;Posterior;Right Arm 18 Gauge (Active) Status Flushes easily;Fluids infusing 11/17/24 1233 Tubing Changed No 11/17/24 1233 Phlebitis Scale 0 11/17/24 1233 Infiltration Scale 0 11/17/24 1233 Site Description (Other) Without redness, swelling or drainage 11/17/24 1233 Site Intervention Flushed 11/17/24 1233 Dressing Assessment Dressing clean, dry, and intact 11/17/24 1233 Dressing Intervention None required 11/17/24 1233 Number of days: 0 Peripheral Line Right Hand 18 Gauge (Active) Status Capped/Locked;Flushes easily 11/17/24 1233 Tubing Changed N/A 11/17/24 1233 Phlebitis Scale 0 11/17/24 1233 Infiltration Scale 0 11/17/24 1233 Site Description (Other) Without redness, swelling or drainage 11/17/24 1233 Site Intervention Flushed 11/17/24 1233 Dressing Assessment Dressing clean, dry, and intact 11/17/24 1233 Dressing Intervention None required 11/17/24 1233 Number of days: 0 Chest Tube Left Pleural (Active) Status Fluctuating;No air leak 11/17/24 1233 Suction -20 cm H2O 11/17/24 1233 Site Description Not visualized, dressing intact 11/17/24 1233 Dressing Assessment Dressing clean, dry, and intact 11/17/24 1233 Description of Output Sanguineous 11/17/24 1233 Dressing Intervention None required 11/17/24 1233 Number of days: 0 Vital Signs: BP: 116/66 Temp: 36 °C (96.8 °F) ( Pulse: 82 Resp: 21 SpO2: 99 % (11/17/24 1919) O2 flow rate: 2 L/MIN Glucose (Bedside): 156 (11/17/24 1405) Time of last pain medication: 1247 Med: dilaudid Time of last antibiotic: 1012 Med: ancef Time of last antiemetic: 1750 Med: compazine CONCRETE BUILDING ASSEMBLER: no Drips: no Neurological: Speech: Clear Level of Consciousness: Alert (RUE Motor Strength: 5-Active movement with full resistance (RLE Motor Strength: 5-Active movement with full resistance (LUE Motor Strength: 5-Active movement with full resistance LLE Motor Strength: 5- Active movement with full resistance Right Pupil Size (mm): 3 (11/17/24 1233) Right Pupil Reaction: Reactive (11/17/24 1233) Left Pupil Size (mm): 3 (11/17/24 1233) Left Pupil Reaction: Reactive (11/17/24 1233) Coma Score: 15 Respiratory: Respiratory WNL: X - Exceptions to WNL as documented below ( Dyspnea Occurence: None Effort: Unlabored Left Breath Sounds: Diminshed (Oxygen therapy/ Mechanical vent Supplemental O2 Delivery: Nasal Cannula O2 flow rate: 2 L/MIN Cardiac: Cardiovascular WNL: WNL - within normal limits GI: GI WNL: WNL - within normal limits ( : WNL: WNL Due to Void: voiding Integumentary:Integumentary WNL: X - Exceptions to WNL as documented below Skin Description: Dry;Warm Skin Color: Flesh Tone;Mucus Membranes [place];Nail beds pink Skin Variations: Other - Describe (see below) Family updated on transfer: yes Additional Assessment Information: Chest tube to water seal- ouput 80 * Kadie Domingo RN - 11/17/2024 1:05 PM EST Dual Licensed Skin Assessment completed by Kadie Ramírez RN and Augustine Sagastume RN. The patient is/has a N/A Skin Breakdown (includes non blanchable erythema): Yes - Surgical/Procedural changes only. * Bree Flores RN - 11/17/2024 8:35 AM EST Dual Licensed Skin Assessment completed by bree flores and Lluvia Mitchell The patient is/has a N/A Skin Breakdown (includes non blanchable erythema): No documented in this encounter OR Notes * OR Surgeon - Lee Gomez MD - 11/17/2024 11:59 AM EST [place] [id number] OPERATIVE REPORT Name: Joanie Mcclure Date: 11/17/2024 Time: 12:32 PM Pre Operative Diagnosis: Left upper lobe lingula lung nodule Post Operative Diagnosis: left upper lobe lung adenocarcinoma Procedures: Robotic left VATS (thoracoscopy) -- upper lobe therapeutic lung wedge resection and lymphadenectomy Surgeon: Lee Gomez MD FACS Assistants: Skip Leroy MD (R2) and Holley Beth PAMarieC Anesthesia: General endotracheal anesthesia (double lumen tube) and local anesthesia (20 ml 1.3% liposomal bupivacaine mixed with 30 ml of 0.25% bupivacaine) infiltrated in the intercostal spaces. Findings: 1. Airways patent bilaterally with small quantity of secretions. 2. Pleural surfaces negative for metastatic disease. 3. Presence of upper lobe lung nodule confirmed. 4. Generous lingula wedge resection performed. 5. Frozen section on the lung nodule = (+) adenocarcinoma. -- approximately 2.7 cm from parenchymal margin Drains: 28-Comoran chest tube (straight) EBL: 5 ml Fluids: 1100 ml crystalloid Urine: Not monitored Specimens: Left upper lobe lingula lung wedge Hilar lymph nodes -- levels 11L and 12L Mediastinal lymph nodes -- levels 5, 7, 8L, and 9L Complications: None Condition: Patient was awakened from anesthesia, extubated in the operating room, and taken to the recovery room in a stable condition. INDICATIONS AND PERTINENT HISTORY: Joanie Mcclure ( is a 74 year old female with an FDG-avid 11 mm left upper lobe lingula lung nodule presenting for definitive mediastinal staging and curative intent pulmonary resection. The rationale, risks, benefits, and alternatives to the proposed surgical procedure were discussed thoroughly with the patient and her son. I specifically discussed the potential for ANY possible complication, including serious morbidity and/or mortality as a direct result of the operation. The more common or typical complications of the proposed procedure were discussed, as well as the realisticpotential for human error on the part of the healthcare team. All of the patient's questions were answered to apparent satisfaction. The patient willingly provided both verbal and written informed consent. PROCEDURE IN DETAIL: The patient was seen and examined as appropriate in the preoperative holding area and the planned site of surgery marked. Upon arrival in the operating room a "Time Out" was performed by the collective operating room team to properly verify the patient's identity, the planned operative procedure, and the planned operative site(s). The patient's radiographs were displayed in the room throughout the procedure for confirmation and guidance as necessary. Appropriate antibiotic prophylaxis was administered within one hour prior to the surgery. Venous thromboprophylaxis was accomplished using bilateral venous compression devices. General anesthesia wasadministered by the anesthesia staff along with a double lumen endotracheal tube to accomplish single lung ventilation for the procedure. The flexible bronchoscope was inserted easily through the endotracheal tube and into the trachea. All airways were inspected to the level of segmental bronchi. No major endoluminal abnormalities werenoted, including edema, erythema, lesions, or masses. The bronchoscope was removed at the conclusion of the examination. ROBOTIC THORACOSCOPY: The patient was carefully placed in a lateral decubitus position with the left side of the chest facing the ceiling. Care was taken by the entire operating room team to comfortably pad all of the pressure points, including the head, neck, axilla, torso, and extremities using soft blankets, pillows,and foam pads as necessary. The table was flexed and the chest was prepped and draped in the usual sterile surgical fashion. An 8-mm incision was made in the 8th intercostal space along the mid-axillary line. The pleura was bluntly but carefully penetrated to create a pneumothorax and thereby push the underlying lung parenchyma and diaphragm muscle away from the incision. An 8-mm robotic port was placed and its position within the pleural space verified using the robotic camera. Insufflation was accomplished to a pressure of 8 mmHg without hemodynamic compromise. Local anesthesia was injected as a nerve block posteriorly in spaces 7 through 11 to cover all incisions. Three additional robotic ports were placed alongthe 8th intercostal space. An assist port was placed just above the diaphragm and along the anterola teral chest wall. The da Jatin Xi robot was docked and robotic instruments inserted into the pleural space under direct vision. Robotic inspection revealed no signs of metastatic pleural disease. Adhesions between theupper lobe, chest wall, and mediastinum were divided with careful bipolar cautery. The fissure appeared open, and the upper lobe lingula lung nodule was visible.The anterior fissure was thin, so we divided this with bipolar cautery all the way to the hilum, providing mobilization of almost the entire lingula. A large/generous lingula wedge resection was performed using blue and green loads. Care was taken to stay as far away from the suspicious lung nodule as feasible. The specimen was placed within an endo-bag and removed via the assist port site. We sent the lung nodule for frozen section. The inferior pulmonary ligament was divided and the posterior mediastinum entered to harvest lymph nodes from levels 7, 8L, and 9L. The remaining hilum was opened carefully to allow harvesting of level 5, 11L, and 12L lymph nodes. Frozen section upon the left upper lobe lingular lung wedge: -- (+) adenocarcinoma in the lung nodule -- parenchymal lung margin was roughly 2.7 cm away from the nodule The pleural space was irrigated with a large volume of sterile water, and hemostasis appeared excellent. All of the robot instruments were removed and a single 28-Comoran chest tube was placed throughthe most anterior port. The tube was secured to the chest wall with a #1 Ethibond simple suture, and connected to water seal drainage with low continuous 20-cm H2O suction. The robotic camera was utilized to visualize pulmonary re-inflation by anesthesia staff and then the robot was carefully undocked completely. All remaining incisions were closed in layers using absorbable sutures. The sponge, needle and instrument count was reported to me as being correct by the perioperative staff prior to completion of skin closure. The skin was washed and dried and the incisions were covered with a thin layer of skin adhesive. Gauze dressings were applied around the chest tube and the patient was carefully returned to a normal supine position. The patient was awakened from anesthesia, extubated in the operating room, and transported to the recovery room breathing spontaneously in a stable condition, having suffered no apparent untoward event. There were no known complications during the surgery. Is this patient a [facility] patient? Yes Bronchoscopy performed prior to resection: yes - performed today in OR Patient's Clinical Stage: I-A Number of mediastinal lymph node station that were sampled/dissected: 3 or more Patient has a lesion greater than 2 cm: no ATTESTATION: I was present for the entire procedure and performed all critical portions. Was there a qualified resident that took part in the case? Yes - Resident was qualified to assist. documented in this encounter Miscellaneous Notes * Pt Handout (on AVS) - Edwin Ugalde RN - 11/21/2024 9:31 AM EST Images from the original note were not included. [id number] Atelectasis Atelectasis is the collapse of one or more sections (lobes) of the lungs. When you breathe in, the lungs normally expand to fill with air. With atelectasis, a blockage or pressure in the area around the lung (pleura) keeps the lung from expanding. This condition can also occur when the lungs don't have enough surfactant to expand. Surfactant is a substance that forms a thin layer in the lungs to help keep the air sacs open. If your lungs don't fill with air, they can't deliver enough oxygen to your blood. What causes atelectasis? Atelectasis is caused by a blocked airway, or pressure from outside the lung. Some causes include: · An object or tumor in an airway · Mucus blocking an airway · Certain lung diseases, including infections · Fluid or air buildup in the space around the lung (pleura). Fluid buildup in the pleural space is called a pleural effusion. Air buildup in the pleural space is called a pneumothorax. · General anesthesia for chest and belly (abdominal) surgery combined with opioid medicines for pain control You may also be at higher risk for atelectasis if you are obese or have sleep apnea, asthma, COPD, cystic fibrosis, or other lung disease. What are the symptoms of atelectasis? If only a small part of your lungs is affected, you may not have any symptoms. If a larger part of your lungs is affected, the symptoms may include: · Trouble breathing · Chest pain · Cough · Wheezing · Fever How is atelectasis diagnosed? You may have one or more of the following tests: · Lab tests. These are done to check the level of oxygen and other gases in the blood. · Chest X-rays. These create images of the lungs. · Computed tomography (CT) scans. These create detailed pictures of the lungs. · Bronchoscopy. This lets the healthcare provider see inside the airways. It uses a thin tube withlight and a camera on the end (bronchoscope). How is atelectasis treated? Treating the underlying cause often allows the lung to re-expand. A serious lung infection (pneumonia) often occurs when the lung collapses. To help the lung tissue re-expand and prevent pneumonia, the following treatments may be prescribed: · Chest percussion. This loosens mucus and helps prevent pneumonia. It involves clapping on the chest with a cupped hand. · Postural drainage. This helps to drain mucus from the lungs. It requires lying in certain positions for a given amount of time. · Deep breathing exercises. These help expand the lungs and clear mucus. They also help prevent pneumonia. · Incentive spirometry. This encourages deep breathing. · Medicines that are breathed in (inhaled). These open up the airway. If you have an infection, antibiotics may also be given. · Bronchoscopy. This removes secretions or foreign objects that may be causing the blockage. When to call the healthcare provider Call your provider if you have any of these: · Fever of 100.4° ( 38°C) or higher, or as directed by your provider · Lasting cough · Fast breathing · Tiredness When to call 911 Call 911 right away if any of these occur: · Your skin is blue, purple, or montejo in color · Dizziness or loss of consciousness · Wheezing or trouble breathing · Trouble talking or not able to speak Last Reviewed Date: 2023 00:00:00 © [employer]. All rights reserved. This information is not intended as a substitute for professional medical care. Always follow your healthcare professional's instructions. * Progress Notes - Post-Op Global - Lee oGmez MD - 11/21/2024 8:42 AM EST PROGRESS NOTE - Thoracic Surgery [facility] [place]-[address] [id number] Name: Joanie Mcclure Location: [facility] [place] [id number] Date: 11/21/2024 Time: 9:25 AM DIAGNOSIS: Left Upper Lobe Lung Cancer OPERATION: 11/17 Robotic Left Upper Lobe Wedge & Lymphadenectomy SUBJECTIVE: No major new events overnight. VITAL SIGNS: Reviewed. PHYSICAL EXAM: Incisions/Wounds: normal post-op appearance Lungs: normal respiratory effort Heart: normal rate and rhythm Abdomen: normal Extremities: no edema Neuro: awake and alert and grossly intact CXR: none today LABS: reviewed IMPRESSION and PLAN: Left Upper Lobe Lung Cancer Principal Problem: 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) (POA: Yes) Overview: 6 x 7 mm nodule 03/15/19. Repeat in 6 months. Active Problems: HTN, goal below 140/90 (POA: Yes) Hypertensive kidney disease with chronic kidney disease stage III (HCC) (POA: Yes) COPD, mild (HCC) (POA: Yes) POA = Present On Admission Pain Management: Usual post operative regimen The patient's pain is well controlled: yes Disposition: -- discharge to home today Updates reviewed with Joanie. All questions answered to apparent satisfaction. * Care Plan - Samm Lopez RN - 11/20/2024 10:52 PM EST Clinical Goal(s): Patient will have adequate oxygenation (11/20/24 0700) Possible barriers to meeting goal(s)/advancing plan of care: Lung CA Stability of the patient: Moderately stable - low risk of patient condition declining or worsening Summary regarding today's goal(s): Met: Recommendations: continue treatment plan * Progress Notes - Post-Op Global - Lee Gomez MD - 11/20/2024 10:01 AM EST PROGRESS NOTE - Thoracic Surgery [facility] [place]-[address] [address] Name: Joanie Mcclure Location: [facility] [place] [id number]/A Date: 11/20/2024 Time: 10:01 AM DIAGNOSIS: Left Upper Lobe Lung Cancer OPERATION: 11/17 Robotic Left Upper Lobe Wedge & Lymphadenectomy SUBJECTIVE: Resting in bed this morning and offering no complaints. VITAL SIGNS: Reviewed. TUBES/LINES: Chest Tube 24 Hour Fluid Output: 110 ml Chest Tube Total Fluid Level: 300 ml Chest Tube Suction: H2O seal only Tidal Motions: none Air Leak: none PHYSICAL EXAM: Incisions/Wounds: no erytherma or drainage, normal post-op appearance Lungs: normal respiratory effort Heart: normal rate and rhythm Abdomen: normal Extremities: no edema Neuro: awake and alert CXR: normal post-op appearance and none today LABS: reviewed -- K 3.3 IMPRESSION and PLAN: Principal Problem: 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) (POA: Yes) Overview: 6 x 7 mm nodule 03/15/19. Repeat in 6 months. Active Problems: HTN, goal below 140/90 (POA: Yes) Hypertensive kidney disease with chronic kidney disease stage III (HCC) (POA: Yes) COPD, mild (HCC) (POA: Yes) POA = Present On Admission Pain Management: Usual post operative regimen The patient's pain is well controlled: yes Chest Tube Management: remove today -- no air leak on exam today -- chest tube removed at bedside -- occlusive dressing placed at chest tube site to be changed in 24 hours Hypokalemia: -- K 3.3 this AM -- oral potassium replacement ordered Respiratory/Physical Therapy: -- continue respiratory therapy -- encourage hallway ambulation Disposition: -- discharge to home tomorrow morning THORACIC SURGERY STAFF NOTE No major new events overnight. Chest tube removed earlier this morning (no leak). Walking a bit more now, including in the hallway. Pain reasonably well controlled. Plan for more physical activity today now that the chest tube has been removed. If no new problems, then discharge home tomorrow. Reviewed discharge and recovery plans in detail with Joanie and her son. All questions answered to apparent satisfaction. * Pt Handout (on AVS) - Joanie Martin RN - 11/19/2024 8:15 AM EST Images from the original note were not included. [id number] What Is Lung Cancer? There are 2 main types of lung cancer: Non-small cell lung cancer Most people with lung cancer have the type called non-small cell lung cancer. There are a few different types of non-small cell lung cancer. These include squamous cell carcinoma, adenocarcinoma, andlarge cell carcinoma. Though each of these subtypes starts in a different kind of cell in the lung,they're grouped together. They all have much the same treatment choices and outlook (prognosis). Small cell lung cancer Small cell lung cancer (SCLC) is much less common than non-small cell lung cancer. SCLC is sometimes called oat cell cancer. (This is because the cells are shaped like oats when viewed under a microscope.) This type of lung cancer tends to grow and spread faster than non-small cell cancer. Lung cancer can spread to the other lung, the liver, brain, or bones. How cancer spreads Cancer cells don?t always stay in one place. Cancer cells can break off from the place they first started. They can get into the bloodstream or lymph system and spread to other parts of the body. Thelymph system is a network of nodes and vessels that help your body fight disease. It goes all over your body, much like your blood vessels. When cancer spreads, the process is called metastasis. Lung cancer that spreads (metastasizes) often goes to the other lung or the liver, brain, or bones. The cancer cells in these other parts of thebody look like, act like, and are treated like the cancer in the lung. These are not new cancers. For instance, when lung cancer spreads to the brain, it's called metastatic lung cancer to the brain or lung cancer with brain metastasis. It's not brain cancer. How daily issues affect your health Many things in your daily life impact your health. This can include transportation, money problems,housing, access to food, and child care counselor. If you can?t get to medical appointments, you may not receive the care you need. When money is tight, it may be difficult to pay for medicines. And living farfrom a grocery store can make it hard to buy healthy food. If you have concerns in any of these or other areas, talk with your healthcare team. They may know of local resources to assist you. Or they may have a staff person who can help. Last Reviewed Date: 2022 00:00:00 © [employer]. All rights reserved. This information is not intended as a substitute for professional medical care. Always follow your healthcare professional's instructions. * Pt Handout (on AVS) - Joanie Martin RN - 11/19/2024 8:15 AM EST Images from the original note were not included. [id number] Surgery for Lung Cancer Surgery can be used to both diagnose and treat lung cancer. Surgery is often used to treat the typeof lung cancer called non-small cell lung cancer. In most cases, surgery is used if the cancer is found in an early stage, which means it's small and hasn't spread beyond the lung. You will need to prepare for lung surgery. Work with your healthcare provider to learn more about what to expect before, during, and after surgery. Mediastinoscopy A mediastinoscopy is used to look at the space between the lungs and under the breastbone (sternum). It might be done to take out a tiny piece of tissue, called a sample. This process is called a biopsy. The sample is then used to figure out the extent (stage) of the cancer. The procedure is done in an operating room with general anesthesia. This means medicine will be used to put you into a deepsleep and prevent pain during the procedure. During this procedure, the healthcare provider puts a scope through a small cut (incision) made at the top of the sternum. The scope is a long, thin, lighted tube. It's slid into the mediastinal space. This is the space between your lungs and behind your breastbone. Your healthcare provider can seelymph nodes and other tissues in this area through the scope. Lymph nodes may be removed through the scope so they can be tested for cancer. Sometimes the swollen nodes are on one side of this mediastinal space. If so, the incision for the scope may be made on the side of your sternum, between two ribs. If no cancer is found in the lymph nodes, you may need more surgery (see below). If cancer has spread to the lymph nodes, more surgery isn't usually done. This is because the chance of curing the cancer with surgery is low. This decision is based partly on which lymph nodes the cancer has spread to. It's also based on how much of the healthy lung must be taken out to remove all of the cancer. Lymph nodes may be removed. Surgery The type of surgery done to treat lung cancer depends on the size of the cancer and where it is within the lung. The goal of surgery is to remove all of the cancer and the nearby lymph nodes. This often means part or all of the lung is taken out. The lungs are made of sections or lobes. The right lung has three lobes, and the left lung has two. These are the types of lung surgeries used to treat cancer: · Segmentectomy or wedge resection. These surgeries remove only part of the lobe with the tumor and a small edge (margin) of healthy tissue around it. The difference between the two surgeries is more lung tissue and lymph nodes are removed with a segmentectomy. · Lobectomy. Surgery is done to remove an entire lobe of the lung. This is the preferred type of surgery for lung cancer, even if the tumor is small. · Pneumonectomy. This surgery removes the whole lung. It might be needed if the tumor is close to the center of the chest. Surgery may remove all or part of a lung. If the cancer is found in an early stage, when it's small and hasn't spread, surgery may cure it. Your healthcare provider will consider the tumor?s size and where it is when deciding how much of thelung to remove. Your overall lung health will also be taken into account. In some cases, a thoracoscopy procedure called video-assisted thoracic surgery (VATS) may be a choice. It's typically used only for early-stage lung cancer near the outside of the lung. With VATS, the lung tissue is removed through several small cuts (incisions) using special tools and a thin, lighted tube. The tube has a video camera at the end to let the healthcare provider see inside the chest. Less pain, a shorter hospital stay, and quicker healing are benefits of this type of surgery. ?Robotically-assisted thoracic surgery might be another choice. It's like VATS, but the surgeon sits at a computer control panel and moves robotic arms to do the surgery. With either of these, it's important to have surgery done by someone who has a lot of experience with these special methods. You will get general anesthesia before surgery. This means medicine will be used to put you into a deep sleep and prevent pain. You'll also be connected to a machine that breathes for you during surgery. Risks and possible complications Lung surgery has certain risks and possible complications. These include: · Risks of general anesthesia · Infection · Bleeding · Air leaking through the lung wall · Pneumonia · Heart problems · Blood clots in the legs or lungs · Shortness of breath (especially in people with other lung problems) ?Talk with your healthcare providers about what problems to look for and when to call them. Make sure you know what number to call with questions or problems, including after office hours, on weekends, and on holidays. Last Reviewed Date: 2023 00:00:00 © [employer]. All rights reserved. This information is not intended as a substitute for professional medical care. Always follow your healthcare professional's instructions. * Progress Notes - Post-Op Global - Skip Leroy MD - 11/19/2024 7:50 AM EST PROGRESS NOTE - Thoracic Surgery [facility]-[address] [id number] Name: Joanie Mcclure Location: [place] [id number] Date: 11/19/2024 Time: 7:50 AM DIAGNOSIS: Left Upper Lobe Lung Cancer OPERATION: 11/17 Robotic Left Upper Lobe Wedge & Lymphadenectomy SUBJECTIVE: Out of bed yesterday. Pain improving. Tolerating diet. Still on 2LNC. Using ISS. VITAL SIGNS: Reviewed. TUBES/LINES: Chest Tube 24 Hour Fluid Output: 70 ml Chest Tube Total Fluid Level: 190 ml Chest Tube Suction: H2O seal only Tidal Motions: moderate Air Leak: intermittent, expiratory, and size: 1 PHYSICAL EXAM: Incisions/Wounds: dressing dry and intact Lungs: normal respiratory effort Heart: normal rate and rhythm Abdomen: normal Extremities: no edema Neuro: awake and alert CXR: normal post-op appearance LABS: reviewed IMPRESSION and PLAN: Left Upper Lobe Lung Cancer Principal Problem: 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) (POA: Yes) Overview: 6 x 7 mm nodule 03/15/19. Repeat in 6 months. Active Problems: HTN, goal below 140/90 (POA: Yes) Hypertensive kidney disease with chronic kidney disease stage III (HCC) (POA: Yes) COPD, mild (HCC) (POA: Yes) POA = Present On Admission Pain Management: The patient's pain is well controlled: yes Chest Tube Management: keep today -- keep chest tube to WS given ongoing leak -- oob, routine pulmonary hygiene -- [employer] resumed: cymbalta, amlodipine, lipitor, hydrochlorothiazide, asa To be discussed with Dr. Patricia Leroy MD General Surgery PGY-2 Cosigned by Lee Gomez MD at 11/19/2024 5:47 PM EST Associated attestation - Lee Gomez MD - 11/19/2024 5:47 PM EST I saw and evaluated the patient today. I have reviewed the resident/fellow physician note and agree. No major new events overnight. Son in the room with her this afternoon. Has been walking around in her room. Feeling better overall today. Minimal tidal motion and no air leak on our late afternoon evaluation. PLAN: Keep tube tonight - probable removal tomorrow morning. Increase physical activity as tolerated, including ambulation out into the hallway. Home soon -- likely in 2 days (Friday). All questions answered to apparent satisfaction. * Care Plan - Blane Kumar RN - 11/19/2024 4:58 AM EST Clinical Goal(s): patient will report any pain this shift (11/18/24 0700) Possible barriers to meeting goal(s)/advancing plan of care: SOB on exert Stability of the patient: Moderately unstable - medium risk of patient condition declining or worsening Summary regarding today's goal(s): Met: Progressing Recommendations: Encourage patient to report any pain * Progress Notes - Post-Op Global - Skip Leroy MD - 11/18/2024 7:52 AM EST PROGRESS NOTE - Thoracic Surgery [facility] [id number] Name: Joanie Mcclure Location: [facility] [id number]/A Date: 11/18/2024 Time: 7:53 AM DIAGNOSIS: Left Upper Lobe Lung Cancer OPERATION: 11/17 Robotic Left Upper Lobe Wedge & Lymphadenectomy SUBJECTIVE: Doing okay at this time VITAL SIGNS: Reviewed. 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 Repeat in 6 months. Active Problems: HTN, goal below 140/90 (POA: Yes) Hypertensive kidney disease with chronic kidney disease stage III (HCC) (POA: Yes) COPD, mild (HCC) (POA: Yes) POA = Present On Admission Pain Management: The patient's pain is well controlled: yes Chest Tube Management: keep today -- keep chest tube to WS given ongoing leak -- repeat CXR tomorrow -- oob, routine pulmonary hygiene -- [employer] resumed: cymbalta, amlodipine, lipitor, hydrochlorothiazide, asa Discussed with Dr. Patricia Leroy MD General Surgery PGY-2 Cosigned by Lee Gomez MD at 11/18/2024 6:32 PM EST Associated attestation - Lee Gomez MD - 11/18/2024 6:32 PM EST I saw and evaluated the patient today. I have reviewed the resident/fellow physician note and agree. No major new events overnight. Operative findings and early recovery expectations reviewed. All questions answered to apparent satisfaction. * Pt Handout (on AVS) - Nalini Balderas RN - 11/17/2024 11:05 PM EST Images from the original note were not included. [id number] After a Thoracoscopy After surgery, you will wake up in a recovery area. At first you?ll likely feel groggy and thirsty.An IV (intravenous) line gives you fluids and medicines to relieve pain. Monitors will keep track of your breathing and heartbeat. You may have a tube coming out of your chest to drain fluid or air. The chest tube may be taken outjust after surgery. Or it may stay in place for several days. Recovering in the hospital While in the hospital, you?ll work with a respiratory therapist. They will teach you breathing exercises. These help keep your lungs clear and prevent inflammation and infection. You?ll do these exercises every hour or so. Depending on your condition, a nurse or therapist will help you get up and walk soon after your surgery. This keeps your blood moving and will help improve your healing. The hospital stay after your surgery will generally be 1 to 4 days. If you have chest tubes, you might not go home until they?re removed. Recovering at home At home, follow the instructions you are given about how to care for your incisions and lungs. Also: · Take your pain medicines as prescribed. This helps relieve soreness and makes activity and deep breathing easier. · Walk to keep your blood moving and strengthen your muscles. But don't do strenuous activity, heavy lifting, or drive for a few weeks. · Continue to do the breathing exercises taught to you by your therapist. · Resume sexual relations when you feel ready or when your provider says it's OK to do so. · Ask your healthcare team when you can go back to work. · Follow up with your healthcare provider. They will monitor your healing and discuss the results of the procedure. When to call your healthcare provider Call your healthcare provider if you have any of these: · Incision site that is very red, warm, smells bad, leaks fluid, or is increasing in pain · Fever of 100.4°F ( 38°C) or higher, or as directed by your provider · Slight bleeding from the incision sites that stops on its own, or with pressure Call 911 Call 911 if any of the following occur: · Shortness of breath · Dizziness or lightheadedness that continues even after sitting down · Sudden, sharp chest pain that doesn't go away, or unusual chest pain · Coughing up bright red blood · Large amount of bleeding from the incision sites, or bleeding that continues after pressure is applied Last Reviewed Date: 2022 00:00:00 © 5739-3689 [employer], [employer]. All rights reserved. This information is not intended as a substitute for professional medical care. Always follow your healthcare professional's instructions. * Respiratory Progress Note - Lee Perdomo RRT - 11/17/2024 10:28 PM EST PATIENT DRIVEN PROTOCOL - Respiratory Care Services [address] [address] Name: Joanie Mcclure Location: [facility] H865/A Date: 11/17/2024 Time: 10:28 PM Patient Driven Protocol Summary: Initial evaluation performed. This Treatment Plan and medications will be reviewed by the Primary Care Team for any contraindications. Respiratory Care Treatment Plan Pulmonary Volume Expansion Therapy: Incentive Spirometry PRN to prevent or treat alveolar consolidation and atelectasis. Secretion Management Treatment: Flutter Therapy PRN to enhance mobilization of secretions. The patient will be re-evaluated: No re-evaluation needed. Indications for treatment met. The Triage Level is: Level 4. Triage Level Definitions: Level 1 Severe Respiratory/Airway Compromise Level 2 Moderate Respiratory/Airway Compromise or high risk for pulmonary complications Level 3 Mild Respiratory/Airway Compromise or moderate risk for pulmonary complications Level 4 Episodic Respiratory/Airway Compromise or low risk for pulmonary complications Level 5 No Respiratory/Airway Compromise Triage 1 Triage 2 Triage 3 Triage 4 Triage 5 greater than 20 16 - 20 11 - 15 6 - 10 0 - 5 Medical Record Assessment Clinical Findings Pulmonary Status: 2 - Smoking more than or equal to 1 pack/day Surgical Status: 1 - General Surgery Chest X-Ray: 0 - Clear Assessment Score: 3 Patient Assessment Clinical Findings Respiratory Pattern: 0 - RR 12 - 20; Patient only gets breathless with strenuous exercise. Breath Sounds: 2 - Diminished bilaterally Cough Effectiveness: 0 - Strong non-productive Sputum Production: 0 - No sputum production Level of Activity: 0 - Ambulatory O2 needed to keep SpO2 greater than or equal to 92%: 1 - Oxygen 1-3 LPM or FiO2 less than 35% Assessment Score: 3 Total Assessment Score: 6 Breath Sounds: Inspiratory and expiratory diminished bilaterally.. Cough and Sputum: No cough was present.. CXR: EXAM XR CHEST 1 VIEW - 11/17/2024 12:59 pm HISTORY immediate film postop left upper lobe wedge resection COMPARISON None TECHNIQUE Portable semi upright AP view of the chest was obtained. FINDINGS Catheters: None Tubes: A left chest tube is seen with tip in the left apex. Foreign bodies: None seen The lungs are grossly clear. There is no appreciable pleural effusion or pneumothorax. The pulmonary vasculature and cardiomediastinal silhouette appear within normal limits. A small amount of subcutaneous emphysema is seen in the left lower chest wall. IMPRESSION IMPRESSION Postop chest, as above.. Vital Signs: Resp: 18 (11/17/242099) Pulse: 79 (11/17/242099) Temp: 36.6 °C (97.9 °F) (11/17/242099) BP: 142/67 (11/17/242099) SpO2: 96 % (11/17/242199) PFT: Incentive Spirometry Volume Goal (ml): 927 ml Incentive Spirometry Volume Reached (ml): 1000 ml Primary Service: Thoracic Surgery. Admitting Diagnosis: Nodule of upper lobe of left lung [R91.1] Pulmonary Diagnosis: Smoker . * Progress Notes - Post-Op Global - Lee Gomez MD - 11/17/2024 1:02 PM EST Post-op CXR personally reviewed. -- normal post-op appearance -- lungs fully expanded -- chest tube(s) in good position Operative findings reviewed immediately post-op with patient's son, Matthew. [facility] Documentation Statement: Was the post-op CXR performed and reviewed within 4 hours of leaving the operating room? Yes documented in this encounter Plan of Treatment Upcoming Encounters Date Type Department Care Team (Late st Contact Info) Description 12/06/2024 1:30 PM EDT Office Visit Thoracic Surg [facility] [address] [place] [address] Lee Gomez MD [address] [place] [address] 01/28/2025 10:20 AM EDT Office Visit Family Medicine [address] [place] [phone] Rafael Ochoa [address] [place] [address] 02/15/2025 10:40 AM EDT Office Visit Neurology [facility] [place] [address] [place] [id number] Corey Smiley MD [address] [place] [address] 09/02/2025 10:00 AM EST Office Visit Family Medicine [address] [phone] Marge Leal MD [address] [place] [address] [place] [phone] Pending Results Name Type Priority Associated Diagnoses Date /Time SURGICAL PATHOLOGY Pathology Routine Nodule of upper lobe of left lung 11/17/2024 11:12 AM EST Scheduled Orders Name Type Priority Associated Diagnoses Orde r Schedule SURGICAL PATHOLOGY Pathology Routine Nodule of upper lobe of left lung Release Upon Ordering for 1 Occurrences starting 11/17/2024, 1 completed Scheduled Procedures Name Priority Associated Diagnoses Date/Ti [...] COPD 11/17/2025 11/17/2024 CKD HGB USE SMARTSET 22318 11/18/202511/18, 10/29/2024, 10/29/2024, Additional history exists CKD PHOS USE SMARTSET 08174 11/20/202510/31, 11/19/2024, 11/18/2024, Additional history exists Colonoscopy 10/07/2026 10/07/2023, 0 05/2024, 07/25/2023, Additional history exists Colorectal Cancer Screening 10/07/2026 DTap/Tdap Vaccines (3 - Td or Tdap) 09/20/2029 09/20/2019, 01/23/2009 Pneumococcal Vaccine: 50+ Years Completed 07/27/2018, 09/24/2016, 01/23/2009 VITAMIN D LEVEL ONCE IN A LIFETIME-USE SMARTSET# [id number] Completed 06/27/2023, 03/01/2019, 03/26/2017, Additional history exists [...] this encounter Medical Devices Implanted Type Area Furniture Sales Consultant Device Identifier Shelf Expiration Date Model / Serial / Lot Graft Allomax 1.0 6x16cm - [id number] - [id number] Implanted:Qty: 1 on 07/03/2015 by Jere Souza MD at OR [facility] Right: Breast CR BARD : DAVOL 08/28/2019 [id number] / [id number] / [id number] Graft Allomax 1.0 6x16cm - [id number] - [id number] Implanted:Qty: 1 on 07/03/2015 by Jere Souza MD at OR [facility] Left: Breast CR BARD : DAVOL 04/28/2017 [id number] / [id number] / [id number] Implant Breast Li+ 350-2251bc - [id number] Implanted:Qty: 1 on 12/28/2015 by Jere Souza MD at OR [facility] Left: Breast MENTOR DANYELLE 03/28/2016 350-2251BC / / [id number] Implant Breast Li+ 350-2251bc - [id number] Implanted:Qty: 1 on 12/28/2015 by Jere Souza MD at OR [facility] Right: Breast MENTOR DANYELLE 03/28/2016 [id number] / / [id number] documented as of this encounter Procedures Procedure Name Priority Date/Time Associated Diagnosis Comments RENAL FUNCTION PANEL Routine 11/20/2024 5:25 AM EST MAGNESIUM Routine 11/20/2024 5:25 AM EST XR CHEST 1 VIEW Routine 11/19/2024 7:52 AM EST Pneumothorax, unspecified Other nonspecific abnormal finding of lung field RENAL FUNCTION PANEL Routine 11/19/2024 4:50 AM EST MAGNESIUM Routine 11/19/2024 4:50 AM EST XR CHEST 1 VIEW Routine 11/18/2024 6:28 AM EST Pneumothorax, unspecified Atelectasis Presence of other specified devices RENAL FUNCTION PANEL Routine 11/18/2024 5:29 AM EST CBC Routine 11/18/2024 5:29 AM EST MAGNESIUM Routine 11/18/2024 5:29 AM EST GLUCOSE METER, POINT OF CARE [facility] 11/17/2024 2:05 PM EST XR CHEST 1 VIEW STAT 11/17/2024 12:59 PM EST BLOOD GAS WITH CHEMISTRY, POINT OF CARE [facility] 11/17/2024 11:46 AM EST BLOOD GAS WITH CHEMISTRY, POINT OF CARE [facility] 11/17/2024 10:29 AM EST BLOOD GAS WITH CHEMISTRY, POINT OF CARE [facility] 11/17/2024 10:16 AM EST TYPE AND SCREEN STAT 11/17/2024 8:41 AM EST GLUCOSE METER, POINT OF CARE [facility] 11/17/2024 8:40 AM EST HC COMPATIBILITY ELECTRONIC CROSSMATCH Routine 11/17/2024 8:30 AM EST Lymphadenectomy via Thoracoscopy 11/17/2024 7:45 AM EST Nodule of upper lobe of left lung Thoracoscopy w/ Wedge Resection, Initial 11/17/2024 7:45 AM EST Nodule of upper lobe of left lung documented in this encounter Results * (ABNORMAL) RENAL FUNCTION PANEL (11/20/2024 5:25 AM EST) BUN 19 6 - 20 mg/dL 11/20/2024 6:15 AM EST [facility] CREATININE 0.9 0.5 - 1.0 mg/dL 11/20/2024 6:15 AM EST [facility] EGFR 64 >=60 mL/min 11/20/2024 6:15 AM EST [facility] Comment:eGFR is calculated b ased on the CKD-EPI 2020 equation. SODIUM 137 135 - 146 mmol/L 11/20/2024 6:15 AM EST [facility] POTASSIUM 3.3(L) 3.5 - 5.1 mmol/L 11/20/2024 6:15 AM EST [facility] CHLORIDE 98 98 - 107 mmol/L 11/20/2024 6:15 AM EST [facility] CO2 28 22 - 32 mmol/L 11/20/2024 6:15 AM EST [facility] ANION GAP 11 7 - 15 mmol/L 11/20/2024 6:15 AM EST [facility] GLUCOSE 111 70 - 120 mg/dL 11/20/2024 6:15 AM EST [facility] CALCIUM 8.6 8.4 - 10.2 mg/dL 11/20/2024 6:15 AM EST [facility] Albumin 3.5(L) 3.8 - 5.0 g/dL 11/20/2024 6:15 AM EST [facility] Phosphorus 2.8 2.5 - 4.8 mg/dL 11/20/2024 6:15 AM EST [facility] Blood Venous blood specimen / Unknown Venipuncture / Unknown 11/20/2024 5:25 AM EST 11/20/2024 5:46 AM EST Holley Beth PA-C LAB BLOOD ORDERABLES Fi nal Result Performing Organization Address City/[facility]/ZIP Co de Phone Number LABORATORY [facility] [address] [place] [address] * MAGNESIUM (11/20/2024 5:25 AM EST) Pathologist [facility] Magnesium 1.8 1.5 - 2.6 mg/dL 11/20/2024 6:15 AM EST [facility] Blood Venous blood specimen / Unknown Venipuncture / Unknown 11/20/2024 5:25 AM EST 11/20/2024 5:46 AM EST Holley Beth PA-C LAB BLOOD ORDERABLES Fi nal Result Performing Organization Address City/[facility] Co de Phone Number LABORATORY [facility] [address] [place] [address] * XR CHEST 1 VIEW (11/19/2024 7:52 AM EST) Anatomical Region Laterality Modality Chest Computed Radiogr aphy 11/19/2024 9:10 AM EST Impressions 11/19/2024 9:08 AM EST IMPRESSION: 1. Tiny left apical pneumothorax, decreased in size compared to the prior exam. 2. Blunting of the right costophrenic angle may reflect a trace right pleural effusion, similar to the prior exam. Narrative 11/19/2024 9:08 AM EST EXAM: EXAM: XR CHEST 1 VIEW DATE TIME: 11/19/2024 - 11/19/2024 7:52 am HISTORY: 74 y/o F interval change COMPARISON: Chest radiograph 11/18/2024. FINDINGS: A left-sided chest tube terminates overlying the left apex. Tiny left apical pneumothorax, decreased in size compared to the prior exam. No focal consolidation. Blunting of the right costophrenic angle may reflect a trace right pleural effusion, similar to the prior exam. Cardiac size is not accurately evaluated on this projection. No acute osseous abnormality. Foci of left chest wall subcutaneous emphysema. Procedure Note Maria C Palmer MD - 11/19/2024 EXAM: EXAM: XR CHEST 1 VIEW DATE TIME: 11/19/2024 - 11/19/2024 7:52 am HISTORY: 74 y/o F interval change COMPARISON: Chest radiograph 11/18/2024. FINDINGS: A left-sided chest tube terminates overlying the left apex. Tiny left apical pneumothorax, decreased in size compared to the priorexam. No focal consolidation. Blunting of the right costophrenic anglemay reflect a trace right pleural effusion, similar to the prior exam. Cardiac size is not accurately evaluated on this projection. No acute osseous abnormality. Foci of left chest wall subcutaneous emphysema. IMPRESSION IMPRESSION: 1. Tiny left apical pneumothorax, decreased in size compared to the priorexam. 2. Blunting of the right costophrenic angle may reflect a trace rightpleural effusion, similar to the prior exam. us Skip Leroy MD RADIOLOGY ([facility]) Final Re sult * (ABNORMAL) RENAL FUNCTION PANEL (11/19/2024 4:50 AM EST) BUN 23(H) 6 - 20 mg/dL 11/19/2024 6:06 AM EST [facility] CREATININE 1.1(H) 0.5 - 1.0 mg/dL 11/19/2024 6:06 AM EST [facility] EGFR 54(L) >=60 mL/min 11/19/2024 6:06 AM EST [facility] Comment:eGFR is calculated b ased on the CKD-EPI 2020 equation. SODIUM 136 135 - 146 mmol/L 11/19/2024 6:06 AM EST [facility] POTASSIUM 3.1(L) 3.5 - 5.1 mmol/L 11/19/2024 6:06 AM EST [facility] CHLORIDE 100 98 - 107 mmol/L 11/19/2024 6:06 AM EST [facility] CO2 29 22 - 32 mmol/L 11/19/2024 6:06 AM EST [facility] ANION GAP 7 7 - 15 mmol/L 11/19/2024 6:06 AM EST [facility] GLUCOSE 106 70 - 120 mg/dL 11/19/2024 6:06 AM EST [facility] CALCIUM 8.7 8.4 - 10.2 mg/dL 11/19/2024 6:06 AM EST [facility] Albumin 3.6(L) 3.8 - 5.0 g/dL 11/19/2024 6:06 AM EST [facility] Phosphorus 2.3(L) 2.5 - 4.8 mg/dL 11/19/2024 6:06 AM EST [facility] Blood Venous blood specimen / Unknown Venipuncture / Unknown 11/19/2024 4:50 AM EST 11/19/2024 5:35 AM EST Holley Beth PA-C LAB BLOOD ORDERABLES Fi nal Result LABORATORY [facility] [address] [place] [address] * MAGNESIUM (11/19/2024 4:50 AM EST) [facility] Magnesium 2.0 1.5 - 2.6 mg/dL 11/19/2024 6:06 AM EST [facility] Blood Venous blood specimen / Unknown Venipuncture / Unknown 11/19/2024 4:50 AM EST 11/19/2024 5:35 AM EST Holley Beth PA-C LAB BLOOD ORDERABLES Fi nal Result LABORATORY [facility] [address] [place] [address] * XR CHEST 1 VIEW (11/18/2024 6:28 AM EST) Anatomical Region Laterality Modality Chest Computed Radiogr aphy 11/18/2024 9:34 AM EST Impressions 11/18/2024 9:32 AM EST IMPRESSION Left apical chest tube with tiny left apical pneumothorax. Interval development of subsegmental atelectasis in the left lung base. Narrative 11/18/2024 9:32 AM EST EXAM XR CHEST 1 VIEW- 11/18/2024 6:28 am HISTORY POD #1 left upper lobe wedge resection COMPARISON XR CHEST 1 VIEW, ACC: [id number], dated 2024-11-17 12:47:52; CT CHEST LUNG CANCER SCREEN 3 OR 6 MONTH FOLLOW UP, ACC: [id number], dated 2024-08-09 10:51:00 TECHNIQUE Portable semi-upright AP view of the chest was obtained. FINDINGS Catheters: None Tubes: Left apical chest tube Foreign bodies: None seen Cardiac silhouette is within normal limits for size. Atherosclerotic changes of the aorta. There are linear densities in the right lung base new from prior examination likely subsegmental atelectasis. There is minimal blunting of the costophrenic angles. Interval development of linear densities in the right lung base likely subsegmental there is tiny left apical pneumothorax. Procedure Note Amie Fitzpatrick MD - 11/18/2024 EXAM XR CHEST 1 VIEW- 11/18/2024 6:28 am HISTORY POD #1 left upper lobe wedge resection COMPARISON XR CHEST 1 VIEW, ACC: [id number], dated 2024-11-17 12:47:52; CT CHEST LUNG CANCER SCREEN 3 OR 6 MONTH FOLLOW UP, ACC: [id number], [id number] 10:51:00 TECHNIQUE Portable semi-upright AP view of the chest was obtained. FINDINGS Catheters: None Tubes: Left apical chest tube Foreign bodies: None seen Cardiac silhouette is within normal limits for size. Atheroscleroticchanges of the aorta. There are linear densities in the right lung basenew from prior examination likely subsegmental atelectasis. There isminimal blunting of the costophrenic angles. Interval development oflinear densities in the right lung base likely subsegmental there is tinyleft apical pneumothorax. IMPRESSION IMPRESSION Left apical chest tube with tiny left apical pneumothorax. Interval development of subsegmental atelectasis in the left lung base. us Holley Beth PA-C RADIOLOGY ([facility]) Final Result * (ABNORMAL) RENAL FUNCTION PANEL (11/18/2024 5:29 AM EST) BUN 28(H) 6 - 20 mg/dL 11/18/2024 6:02 AM EST [facility] CREATININE 1.2(H) 0.5 - 1.0 mg/dL 11/18/2024 6:02 AM EST [facility] EGFR 48(L) >=60 mL/min 11/18/2024 6:02 AM EST [facility] Comment:eGFR is calculated b ased on the CKD-EPI 2020 equation. SODIUM 138 135 - 146 mmol/L 11/18/2024 6:02 AM EST [facility] POTASSIUM 3.5 3.5 - 5.1 mmol/L 11/18/2024 6:02 AM EST [facility] CHLORIDE 98 98 - 107 mmol/L 11/18/2024 6:02 AM EST [facility] CO2 24 22 - 32 mmol/L 11/18/2024 6:02 AM EST LABORATORY [facility] ANION GAP 16(H) 7 - 15 mmol/L 11/18/2024 6:02 AM EST [facility] GLUCOSE 137(H) 70 - 120 mg/dL 11/18/2024 6:02 AM EST [facility] CALCIUM 8.9 8.4 - 10.2 mg/dL 11/18/2024 6:02 AM EST [facility] Albumin 3.9 3.8 - 5.0 g/dL 11/18/2024 6:02 AM EST [facility] Phosphorus 4.4 2.5 - 4.8 mg/dL 11/18/2024 6:02 AM EST LABORATORY [facility] Blood Venous blood specimen / Unknown Venipuncture / Unknown 11/18/2024 5:29 AM EST 11/18/2024 5:32 AM EST us Holley Beth PA-C LAB BLOOD ORDERABLES Fi nal Result LABORATORY [facility] [address] [place] [address] * MAGNESIUM (11/18/2024 5:29 AM EST) Magnesium 2.0 1.5 - 2.6 mg/dL 11/18/2024 6:02 AM EST [facility] Blood Venous blood specimen / Unknown Venipuncture / Unknown 11/18/2024 5:29 AM EST 11/18/2024 5:32 AM EST us Holley Beth PA-C LAB BLOOD ORDERABLES Fi nal Result [facility] [address] [place] [address] * (ABNORMAL) CBC (11/18/2024 5:29 AM EST) WBC 6.07 4.00 - 10.80 K/uL 11/18/2024 5:44 AM EST [facility] RBC 4.06 3.85 - 5.15 M/uL 11/18/2024 5:44 AM EST [facility] HGB 10.9(L) 12.0 - 15.3 g/dL 11/18/2024 5:44 AM EST [facility] HCT 33.8(L) 36.0 - 45.2 % 11/18/2024 5:44 AM EST [facility] MCV 83.3 81.5 - 97.5 fL 11/18/2024 5:44 AM EST [facility] MCH 26.8 27.0 - 34.0 pg 11/18/2024 5:44 AM EST [facility] MCHC 32.2 32.0 - 36.0 g/dL 11/18/2024 5:44 AM EST [facility] RDW 14.4 11.5 - 15.5 % 11/18/2024 5:44 AM EST [facility] PLT 220 140 - 400 K/uL 11/18/2024 5:44 AM EST [facility] MPV 10.3 6.6 - 11.1 fL 11/18/2024 5:44 AM EST [facility] nRBCs 0 <=0 /100 WBCs 11/18/2024 5:44 AM EST [facility] Blood Venous blood specimen / Unknown Venipuncture / Unknown 11/18/2024 5:29 AM EST 11/18/2024 5:32 AM EST us Holley Beth PA-C LAB BLOOD ORDERABLES Fi nal Result [facility] [address] [place] [address] * (ABNORMAL) GLUCOSE METER, POINT OF CARE (11/17/2024 2:05 PM EST) [facility] Glucose - POCT 159(H) 70 - 120 mg/dL 11/17/2024 2:07 PM EST [facility] [employer] [facility] Blood Whole blood specimen / Unknown 11/17/2024 2:05 PM EST 11/17/2024 2:07 PM EST us Lee Gomez MD LAB POINT OF CARE T EST DOCKED DEVICE UNSOLICITED RESULTS Final Result Performing Organization Address City/[facility]/ZIP Co de Phone Number [facility] [address] [place] [address] * XR CHEST 1 VIEW (11/17/2024 12:59 PM EST) Anatomical Region Laterality Modality Chest Computed Radiogr aphy 11/17/2024 1:39 PM EST Impressions 11/17/2024 1:37 PM EST IMPRESSION Postop chest, as above. Narrative 11/17/2024 1:37 PM EST EXAM XR CHEST 1 VIEW - 11/17/2024 12:59 pm HISTORY immediate film postop left upper lobe wedge resection COMPARISON None TECHNIQUE Portable semi upright AP view of the chest was obtained. FINDINGS Catheters: None Tubes: A left chest tube is seen with tip in the left apex. Foreign bodies: None seen The lungs are grossly clear. There is no appreciable pleural effusion or pneumothorax. The pulmonary vasculature and cardiomediastinal silhouette appear within normal limits. A small amount of subcutaneous emphysema is seen in the left lower chest wall. Procedure Note Wu Russell MD - 11/17/2024 EXAM XR CHEST 1 VIEW - 11/17/2024 12:59 pm HISTORY immediate film postop left upper lobe wedge resection COMPARISON None TECHNIQUE Portable semi upright AP view of the chest was obtained. FINDINGS Catheters: None Tubes: A left chest tube is seen with tip in the left apex. Foreign bodies: None seen The lungs are grossly clear. There is no appreciable pleural effusion orpneumothorax. The pulmonary vasculature and cardiomediastinal silhouetteappear within normal limits. A small amount of subcutaneous emphysema isseen in the left lower chest wall. IMPRESSION IMPRESSION Postop chest, as above. us Holley Beth PA-C RADIOLOGY ([facility]) Final Result * (ABNORMAL) BLOOD GAS WITH CHEMISTRY, POINT OF CARE (11/17/2024 11:46 AM EST) Draw Site Arterial Draw 11/17/2024 7:37 PM EST [employer] pH i-STAT 7.325(L) 7.350 - 7.450 11/17/2024 7:37 PM EST [employer] pCO2 i-STAT 46.9(H) 35.0 - 45.0 mm Hg 11/17/2024 7:37 PM EST [employer] pO2 i-STAT 185(H) 75 - 100 mm Hg 11/17/2024 7:37 PM EST [employer] Base Excess i-STAT -2 -2 - 2 mmol/L 11/17/2024 7:37 PM EST [employer] Bicarbonate i-STAT 24.5 23.0 - 31.0 mmol/L 11/17/2024 7:37 PM EST [employer] O2 Saturation i-STAT 100.0(H) 94.0 - 98.0 % 11/17/2024 7:37 PM EST [employer] Glucose - POCT 165(H) 70 - 120 mg/dL 11/17/2024 7:37 PM EST [employer] POTASSIUM - POCT 3.2(L) 3.5 - 5.1 mmol/L 11/17/2024 7:37 PM EST [employer] SODIUM - POCT 136 135 - 146 mmol/L 11/17/2024 7:37 PM EST [employer] Calcium, ionized 1.11(L) 1.13 - 1.32 mmol/L 11/17/2024 7:37 PM EST [employer] Hemoglobin i-STAT 12.2 12.0 - 15.3 g/dL 11/17/2024 7:37 PM EST [facility] [employer] [facility] Hematocrit i-STAT 36 36 - 45 % 11/17/2024 7:37 PM EST [facility] FiO2 77 % 11/17/2024 7:37 PM EST [facility] [employer] [facility] Arterial Draw 11/17/2024 11: 46 AM EST 11/17/2024 7:37 PM EST us Lee Gomez MD LAB POINT OF CARE T EST DOCKED DEVICE UNSOLICITED RESULTS Final Result [facility] [address] [place] [address] * (ABNORMAL) BLOOD GAS WITH CHEMISTRY, POINT OF CARE (11/17/2024 10:29 AM EST) Draw Site Arterial Draw 11/17/2024 7:38 PM EST [facility] [employer] pH i-STAT 7.325(L) 7.350 - 7.450 11/17/2024 7:38 PM EST [facility] [employer] pCO2 i-STAT 50.5(H) 35.0 - 45.0 mm Hg 11/17/2024 7:38 PM EST [facility] [employer] [facility] pO2 i-STAT 252(H) 75 - 100 mm Hg 11/17/2024 7:38 PM EST [facility] [employer] Base Excess i-STAT 0 -2 - 2 mmol/L 11/17/2024 7:38 PM EST [facility] [employer] Bicarbonate i-STAT 26.3 23.0 - 31.0 mmol/L 11/17/2024 7:38 PM EST [facility] [employer] O2 Saturation i-STAT 100.0(H) 94.0 - 98.0 % 11/17/2024 7:38 PM EST [facility] [employer] Glucose - POCT 153(H) 70 - 120 mg/dL 11/17/2024 7:38 PM EST [facility] [employer] [facility] POTASSIUM - POCT 3.0(L) 3.5 - 5.1 mmol/L 11/17/2024 7:38 PM EST [facility] SODIUM - POCT 136 135 - 146 mmol/L 11/17/2024 7:38 PM EST [facility] Calcium, ionized 1.15 1.13 - 1.32 mmol/L 11/17/2024 7:38 PM EST [facility] Hemoglobin i-STAT 12.2 12.0 - 15.3 g/dL 11/17/2024 7:38 PM EST [facility] Hematocrit i-STAT 36 36 - 45 % 11/17/2024 7:38 PM EST [facility] FiO2 85 % 11/17/2024 7:38 PM EST [facility] Arterial Draw 11/17/2024 10: 29 AM EST 11/17/2024 7:38 PM EST us Lee Gomez MD LAB POINT OF CARE T EST DOCKED DEVICE UNSOLICITED RESULTS Final Result [facility] [address] [place] [address] * (ABNORMAL) BLOOD GAS WITH CHEMISTRY, POINT OF CARE (11/17/2024 10:16 AM EST) Draw Site Arterial Draw 11/17/2024 7:37 PM EST [facility] [employer] [facility] pH i-STAT 7.300(L) 7.350 - 7.450 11/17/2024 7:37 PM EST [facility] [employer] [facility] pCO2 i-STAT 55.6(HH) 35.0 - 45.0 mm Hg 11/17/2024 7:37 PM EST [facility] [employer] [facility] pO2 i-STAT 440(H) 75 - 100 mm Hg 11/17/2024 7:37 PM EST [facility] [employer] [facility] Base Excess i-STAT 0 -2 - 2 mmol/L 11/17/2024 7:37 PM EST [facility] Bicarbonate i-STAT 27.4 23.0 - 31.0 mmol/L 11/17/2024 7:37 PM EST [facility] [employer] [facility] O2 Saturation i-STAT 100.0(H) 94.0 - 98.0 % 11/17/2024 7:37 PM EST [facility] [employer] [facility] Glucose - POCT 143(H) 70 - 120 mg/dL 11/17/2024 7:37 PM EST [facility] [employer] POTASSIUM - POCT 3.0(L) 3.5 - 5.1 mmol/L 11/17/2024 7:37 PM EST [facility] SODIUM - POCT 137 135 - 146 mmol/L 11/17/2024 7:37 PM EST [facility] Calcium, ionized 1.16 1.13 - 1.32 mmol/L 11/17/2024 7:37 PM EST [facility] Hemoglobin i-STAT 12.9 12.0 - 15.3 g/dL 11/17/2024 7:37 PM EST [facility] Hematocrit i-STAT 38 36 - 45 % 11/17/2024 7:37 PM EST [facility] FiO2 97 % 11/17/2024 7:37 PM EST [facility] Arterial Draw 11/17/2024 10: 16 AM EST 11/17/2024 7:37 PM EST us Lee Gomez MD LAB POINT OF CARE T EST DOCKED DEVICE UNSOLICITED RESULTS Final Result [facility] [address] [place] [address] * TYPE AND SCREEN (11/17/2024 8:41 AM EST) ABO O 11/17/2024 9:29 AM EST LABORATORY [facility] BLOOD BANK Rh Negative 11/17/2024 9:29 AM EST LAB[facility]ATORY [facility] BLOOD BANK Red Blood Cell Antibody Screen Negative 11/17/2024 9:29 AM EST LAB[facility]ATORY [facility] BLOOD BANK Specimen Expiration Date 11/20/2024 23:59 11/17/2024 9:29 AM EST [facility]ATORY [facility] BLOOD BANK Blood Venous blood specimen / Unknown Venipuncture / Unknown 11/17/2024 8:41 AM EST 11/17/2024 8:46 AM EST us Nazanin Black MD LAB BLOOD BANK TEST ORDERABLES Final Result LABORATORY [facility] BLOOD BANK [address] [place] [address] * GLUCOSE METER, POINT OF CARE (11/17/2024 8:40 AM EST) Glucose - POCT 117 70 - 120 mg/dL 11/17/2024 8:43 AM EST [facility] [employer] [facility] Blood Whole blood specimen / Unknown 11/17/2024 8:40 AM EST 11/17/2024 8:43 AM EST Lee Gomez MD LAB POINT OF CARE T EST DOCKED DEVICE UNSOLICITED RESULTS Final Result [facility] [address] [place] [address] * PREPARE PACKED RED BLOOD CELLS (11/17/2024 8:30 AM EST) Unit Product Code [id number] 11/17/2024 4:51 PM EST [facility] BLOOD B[facility] Unit Number [id number] 11/17/2024 4:51 PM EST [facility] BLOOD B[facility] Unit ABO O 11/17/2024 4:51 PM EST [facility] BLOOD [facility] Unit Rh POS 11/17/2024 4:51 PM EST [facility] Unit Crossmatch Compatible 11/17/2024 9:07 AM EST [facility] Unit Status RE 11/17/2024 4:51 PM EST [facility] Unit Blood Type OPOS 11/17/2024 4:51 PM EST [facility] Unit Expiration [id number] 11/17/2024 4:51 PM EST [facility] Unit Barcode 5100 11/17/2024 4:51 PM EST [facility] Unit Product Code [id number] 11/17/2024 4:51 PM EST [facility] Unit Number [id number] 11/17/2024 4:51 PM EST [facility] BLOOD [facility] Unit ABO O 11/17/2024 4:51 PM EST [facility]LO[facility] Unit Rh POS 11/17/2024 4:51 PM EST [facility] Unit Crossmatch Compatible 11/17/2024 9:07 AM EST [facility]LO[facility] Unit Status RE 11/17/2024 4:51 PM EST LAB[facility]ATORY [facility] BLOOD BANK Unit Blood Type OPOS 11/17/2024 4:51 PM EST [facility]ATORY [facility] BLOOD BANK Unit Expiration [id number] 11/17/2024 4:51 PM EST LAB[facility]ATORY [facility] BLOOD BANK Unit Barcode 5100 11/17/2024 4:51 PM EST [facility]ORY [facility] BLOOD BANK 11/17/2024 8:30 AM EST us Nazanin Black MD BLD BANK PRODUCT ORDERABLES Peter sabina Result - Final LABORATORY [facility] BLOOD BANK [address] [place] [address] documented in this encounter Visit Diagnoses Diagnosis 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)- Primary Nodule of upper lobe of left lung Pneumothorax, unspecified Atelectasis Pulmonary collapse Presence of other specified devices Other nonspecific abnormal finding of lung field Hypertensive kidney disease with chronic kidney disease stage III (HCC) Unspecified hypertensive kidney disease with chronic kidney disease stage I through stage IV, or unspecified HTN, goal below 140/90 Unspecified essential hypertension COPD, mild (HCC) Chronic airway obstruction, not elsewhere classified documented in this encounter Administered Medications Inactive Administered Medications - up to 3 most recent administrations Medication Order MAR Action Action Date Dose Rate Site Acetaminophen (Tylenol) tab 975 mg 975 mg, Oral, PREOP, First dose on Fri11/17/24 at 0900, Last dose on Fri11/17/24 at 0900, For 1 dose, Maximum 4 g acetaminophen/day. Avoid in patients with severe hepatic impairment or severe active liver disease. Administer 60 minutes prior to OR., Pre-Op Given 11/17/2024 8:32 AM EST 975 mg Acetaminophen (Tylenol) tab 975 mg 975 mg, Oral, Q8H, First dose on Fri11/17/24 at 1400, Last dose on Fri11/22/24 at 0600, For 5 days, Avoid in patients with severe hepatic impairment or severe active liver disease. Use for 5 days., Post-op, Post-op Given 11/21/2024 5:30 AM EST 975 mg Given 11/20/2024 8:35 PM EST 975 mg Given 11/20/2024 2:43 PM EST 975 mg Acetaminophen (Tylenol) tab 975 mg 975 mg, Oral, Q6H PRN Pain, Mild, Starting on 11/22/24 at 0000, Until 11/21/24 at 1418, Begin after around the clock acetaminophen order discontinued (S+5). Maximum 4 g acetaminophen/day. Avoid in patients with severe hepatic impairment or severe active liver disease., Post-op albuterol-ipratropium (Duoneb) inhalation solution 3 mL 3 mL, Nebulizer, Once, On Fri11/17/24 at 0930, For 1 dose, 3 mL = 0.5 mg ipratropium/ 2.5 mg albuterol, Pre-Op Given 11/17/2024 8:56 AM EST 3 mL amLODIPine (Norvasc) tab 10 mg 10 mg, Oral, Daily(AM), First dose on Fri11/18/24 at 0900, Until Discontinued Given 11/21/2024 9:04 AM EST 10 mg Given 11/20/2024 8:16 AM EST 10 mg Given 11/19/2024 8:05 AM EST 10 mg aspirin chew tab 81 mg 81 mg, Oral, Daily(AM), First dose on Fri11/18/24 at 0900, Until Discontinued, Indications: IN EVENINGIndications:IN EVENING Given 11/21/2024 9:0 4 AM EST 81 mg Given 11/20/2024 8:16 AM EST 81 mg Given 11/19/2024 8:05 AM EST 81 mg atorvaSTATin (Lipitor) tab 20 mg 20 mg, Oral, Q1700, First dose on Fri11/17/24 at 1700, Until Discontinued Given 11/20/2024 5:10 PM EST 20 mg Given 11/19/2024 4:53 PM EST 20 mg Given 11/18/2024 5:25 PM EST 20 mg chlorhexidine gluconate cloth 2 % pad 1 Pad 1 Pad, External, PREOP, First dose on Fri11/17/24 at 0900, Last dose on Fri11/17/24 at 0900, For 1 dose, Cleanse surgical site area immediately before transferring intra-op, Pre-Op Given 11/17/2024 8:32 AM EST 1 Pad DULoxetine (Cymbalta) DR cap 20 mg 20 mg, Oral, Daily(AM), First dose on Gia 11/18/24 at 0900, Until Discontinued Given 11/21/2024 9:04 AM EST 20 mg Given 11/20/2024 8:16 AM EST 20 mg Given 11/19/2024 8:05 AM EST 20 mg Enoxaparin (Lovenox) inj 40 mg 40 mg, Subcutaneous, Daily(AM), First dose on Gia 11/18/24 at 0900, Until Discontinued, If patient is on warfarin, inform provider if daily INR value is 2 or greater!, Post-op Given 11/21/2024 9:04 AM EST 40 mg Abdomen Right Lower Given 11/20/2024 8:16 AM EST 40 mg Ab domen Right Lower Given 11/19/2024 8:05 AM EST 40 mg Ab domen Left Lower hydroCHLOROthiazide (Hydrodiuril) tab 25 mg 25 mg, Oral, Daily(AM), First dose on Gia 11/18/24 at 0900, Until Discontinued Given 11/21/2024 9:04 AM EST 25 mg Given 11/20/2024 8:16 AM EST 25 mg Given 11/19/2024 8:05 AM EST 25 mg hydrogen peroxide 1.5% (Jaojs-E-Qbul) oral rinse 15 mL 15 mL, Swish & Spit, ONCE, On Fri11/17/24 at 0900, For 1 dose, Rinse mouth for approximately 1 minute, then expectorate. Avoid swallowing., Pre-Op Given 11/17/2024 9:00 AM EST 15 mL HYDROmorphone (Dilaudid) inj 0.2 mg 0.2 mg, IV Push, Q15 MIN PRN Pain, Severe, Starting on Fri11/17/24 at 1214, Until Fri11/17/24 at 2058, For 3 doses, Administer only postop in PACU. Hold for respiratory rate less than 12. Administer up to a total of 0.6mg., PACU Given 11/17/2024 12:47 PM EST 0.2 mg Isolyte-S pH 7.4 infusion Intravenous, at 100 mL/hr, Plasma-LYTE 148, isolyte-S, and isolyte-S pH 7.4 are considered equivalent - including for MAR barcode scanning., CONTINUOUS, Starting on Fri11/17/24 at 0900, Until Fri11/18/24 at 0958, Pre-Op New Bag 11/17/2024 7:28 PM EST 100 mL/hr New Bag 11/17/2024 9:00 AM EST 100 mL/hr Isolyte-S pH 7.4 infusion Intravenous, at 50 mL/hr, Plasma-LYTE 148, isolyte-S, and isolyte-S pH 7.4 are considered equivalent - including for MAR barcode scanning., CONTINUOUS, Starting on Fri11/18/24 at 1030, Until Fri11/19/24 at 0615, Pre-Op New Bag 11/18/2024 11:00 AM EST 50 mL/hr naloxone (Narcan) 0.4 MG/ML inj 0.08 mg 0.08 mg, IV Push, PRN Other, If patient is oversedated or Respiratory Rate less than 8, Starting on Fri11/17/24 at 1233, Until Fri11/21/24 at 1418, Call provider if patient is oversedated or Respiratory Rate is less than 8, Post-op ondansetron (Zofran) inj 4 mg 4 mg, IV Push, Q6H PRN Other, May use for nausea or vomiting if patient unable to take oral ondansetron, Starting on Fri11/17/24 at 1233, Until Fri11/21/24 at 1418, Post-op Given 11/17/2024 5:10 PM EST 4 mg ondansetron ODT (Zofran) tab 4 mg 4 mg, On Tongue, Q6H PRN Nausea, Vomiting, Starting on Fri11/17/24 at 1233, Until Fri11/21/24 at 1418, Post-op Given 11/18/2024 8:46 AM EST 4 mg oxyCODONE (Oxy IR) tab 5 mg 5 mg, Oral, Q4H PRN Pain, Severe, Starting on Fri11/17/24 at 1234, Until Fri11/21/24 at 1418, Post-op Given 11/17/2024 9:16 PM EST 5 mg oxygen GAS Inhalation, OXYGEN, First dose on Fri11/17/24 at 1600, Until Discontinued, Device/Managed by: Low Flow Device, Goal SPO2 (%): 91-95, Starting Device: Nasal Cannula, Initial Flow Rate (LPM): 2, Lowest Support: Nasal Cannula: Flow 0-6 LPM. Titrate up/down by 1 LPM., Titration Interval: Q2 minutes and as needed., Notify Provider: For sudden DECREASE in resting SPO2 to less than 85% and when escalating delivery device., Wean patient off Oxygen when the oxygen saturation is greater than or equal to 93% Oxygen On 11/19/2024 4:00 PM EST Oxygen On 11/19/2024 8:00 AM EST Oxygen On 11/19/2024 12:00 AM EST potassium chloride ER tab 20 mEq 20 mEq, Oral, ONCE, On 11/20/24 at 1045, For 1 dose, This med should NOT be Crushed or Chewed Given 11/20/2024 11:23 AM EST 20 mEq potassium phosphate 45 mmol in NSS 500 mL (K phos) ivpb 45 mmol, Peripheral IV, ONCE, 1 dose, On 11/19/24 at 0700 New Bag 11/19/2024 7:22 AM EST 45 mmol 70 mL/hr Povidone-Iodine nasal swab 4 Swab 4 Swab, Nasal, PREOP, First dose on Fri11/17/24 at 0900, Last dose on Fri11/17/24 at 0900, For 1 dose, Tilt the bottle slightly, dip one swab into solution and stir vigorously for 10 seconds. Withdraw the swab slowly to avoid wiping solution off during removal. Insert swab comfortably into one nostril and rotate for 15 seconds, covering all surfaces. Then focus on the inside tip of nostril and rotate for an additional 15 seconds. Using a new swab, Repeat above steps in the other nostril (Swab 2). Repeat the application in both nostrils using a fresh swab each times (Swab 3 and 4)., Pre-Op Given 11/17/2024 8:32 AM EST 4 Swabs Prochlorperazine (Compazine) inj 10 mg 10 mg, IV Push, ONCE, On Gia 11/18/24 at 1030, For 1 dose Given 11/18/2024 10:29 AM EST 10 mg Prochlorperazine (Compazine) inj 5 mg 5 mg, IV Push, ONCE PRN Nausea, Vomiting, Starting on Fri11/17/24 at 1215, Until Fri11/17/24 at 1750, For 1 dose, PACU Given 11/17/2024 5:50 PM EST 5 mg sodium chloride 0.9 % flush peripheral darrion 3 mL 3 mL, IV Push, Q8H, First dose on Fri11/17/24 at 1400, Until Discontinued, Do not flush if lock, PICC, or central line not in place; IV infusing or unable to flush., Post-op Given 11/21/2024 6:00 AM EST 3 mL Given 11/20/2024 10:00 PM EST 3 mL Given 11/20/2024 2:00 PM EST 3 mL traMADol (Ultram) tab 25 mg 25 mg, Oral, Q6H PRN Pain, Moderate, Starting on Gia 11/18/24 at 0600, Until 11/21/24 at 1418, Post-op documented in this encounter Active and Recently Administered Medications Times are shown in EST. Scheduled Medication Order 11/19/2024 11/20/2024 11/21/2024 Acetaminophen (Tylenol) tab 975 mg 975 mg, Oral, Q8H, First dose on Fri11/17/24 at 1400, Last dose on Fri11/22/24 at 0600, For 5 days, Avoid in patients with severe hepatic impairment or severe active liver disease. Use for 5 days., Post-op, Post-op 0604 (Given - Provider: Blane Kumar RN)1439 (Given - Provider: Alessandra Nagy RN)2120 (Given - Provider: Rachael De Dios, KB) 0434 (Given - Provider: Rachael De Dios RN)144 (Given - Provider: Oanh Sumner RN)2034 (Given - Provider: Samm Lopez RN) 0530 (Given - Provider: Shannan Rhodes, KB) amLODIPine (Norvasc) tab 10 mg 10 mg, Oral, Daily(AM), First dose on Gia 11/18/24 at 0900, Until Discontinued 08 (Given - Provider: Jerrica Rebollar RN) 0816 (Given - Provider: Oanh Sumner RN) 0904 (Given - Provider: Oanh Sumner RN) aspirin chew tab 81 mg 81 mg, Oral, Daily(AM), First dose on Gia /20/25 at 0900, Until Discontinued, Indications: IN EVENING 804 (Given - Provider: Jerrica Rebollar RN) 815 (Given - Provider: Oanh Sumner RN) 903 (Given - Provider: Oanh Sumner RN) atorvaSTATin (Lipitor) tab 20 mg 20 mg, Oral, Q1700, First dose on Fri11/17/24 at 1700, Until Discontinued 165 (Given - Provider: Alessandra Nagy RN) 1710 (Given - Provider: Oanh Sumner RN) DULoxetine (Cymbalta) DR cap 20 mg 20 mg, Oral, Daily(AM), First dose on Fri11/18/24 at 0900, Until Discontinued 804 (Given - Provider: Jerrica Rebollar RN) 815 (Given - Provider: Oanh Sumner RN) 903 (Given - Provider: Oanh Sumner RN) Enoxaparin (Lovenox) inj 40 mg 40 mg, Subcutaneous, Daily(AM), First dose on Fri11/18/24 at 0900, Until Discontinued, If patient is on warfarin, inform provider if daily INR value is 2 or greater!, Post-op 804 (Given - Provider: Jerrica Rebollar RN) 815 (Given - Provider: Oanh Sumner RN) 903 (Given - Provider: Oanh Sumner RN) hydroCHLOROthiazide (Hydrodiuril) tab 25 mg 25 mg, Oral, Daily(AM), First dose on Fri11/18/24 at 0900, Until Discontinued 804 (Given - Provider: Jerrica Rebollar RN) 815 (Given - Provider: Oanh Sumner RN) 903 (Given - Provider: Oanh Sumner RN) oxygen GAS (CANCELED) Inhalation, OXYGEN, First dose on Fri11/17/24 at 1600, Until Discontinued, Device/Managed by: Low Flow Device, Goal SPO2 (%): 91-95, Starting Device: Nasal Cannula, Initial Flow Rate (LPM): 2, Lowest Support: Nasal Cannula: Flow 0-6 LPM. Titrate up/down by 1 LPM., Titration Interval: Q2 minutes and as needed., Notify Provider: For sudden DECREASE in resting SPO2 to less than 85% and when escalating delivery device., Wean patient off Oxygen when the oxygen saturation is greater than or equal to 93% 0000 (Oxygen On - Provider: Blane Kumar RN)0800 (Oxygen On - Provider: Jerrica Rebollar, KB)1600 (Oxygen On - Provider: Alessandra Nagy, KB) 0000 (Oxygen Off - Provider: Rachael De Dios, KB)0800 (Oxygen Off - Provider: Oanh Sumner, KB) potassium chloride ER tab 20 mEq (COMPLETED) 20 mEq, Oral, ONCE, On Fri11/20/24 at 1045, For 1 dose, This med should NOT be Crushed or Chewed 1123 (Given - Provider: Oanh Sumner, KB) potassium phosphate 45 mmol in NSS 500 mL (K phos) ivpb (COMPLETED) 45 mmol, Peripheral IV, ONCE, 1 dose, On Fri11/19/24 at 0700 0722 (New Bag - Provider: Blane Kumar RN) sodium chloride 0.9 % flush peripheral darrion 3 mL 3 mL, IV Push, Q8H, First dose on Fri11/17/24 at 1400, Until Discontinued, Do not flush if lock, PICC, or central line not in place; IV infusing or unable to flush., Post-op 0605 (Given - Provider: Blane Kumar RN)1400 (Given - Provider: Alessandra Nagy RN)2120 (Given - Provider: Rachael De Dios, KB) 06 (Given - Provider: Rachael De Dios, KB)1400 (Given - Provider: Oanh Sumner, KB)2200 (Given - Provider: Samm Lopez RN) 0600 (Given - Provider: Shannan Rhodes RN) PRN Medication Order 11/19/2024 11/20/2024 11/21/2024 Acetaminophen (Tylenol) tab 975 mg 975 mg, Oral, Q6H PRN Pain, Mild, Starting on 11/22/24 at 0000, Until 11/21/24 at 1418, Begin after around the clock acetaminophen order discontinued (S+5). Maximum 4 g acetaminophen/day. Avoid in patients with severe hepatic impairment or severe active liver disease., Post-op naloxone (Narcan) 0.4 MG/ML inj 0.08 mg 0.08 mg, IV Push, PRN Other, If patient is oversedated or Respiratory Rate less than 8, Starting on Fri11/17/24 at 1233, Until 11/21/24 at 1418, Call provider if patient is oversedated or Respiratory Rate is less than 8, Post-op ondansetron (Zofran) inj 4 mg(Linked Group 1) 4 mg, IV Push, Q6H PRN Other, May use for nausea or vomiting if patient unable to take oral ondansetron, Starting on Fri11/17/24 at 1233, Until 11/21/24 at 1418, Post-op ondansetron ODT (Zofran) tab 4 mg(Linked Group 1) 4 mg, On Tongue, Q6H PRN Nausea, Vomiting, Starting on Fri11/17/24 at 1233, Until 11/21/24 at 1418, Post-op oxyCODONE (Oxy IR) tab 5 mg 5 mg, Oral, Q4H PRN Pain, Severe, Starting on Fri11/17/24 at 1234, Until 11/21/24 at 1418, Post-op traMADol (Ultram) tab 25 mg 25 mg, Oral, Q6H PRN Pain, Moderate, Starting on Gia 11/18/24 at 0600, Until 11/21/24 at 1418, Post-op Linked Groups Order Group 1: ondansetron ODT (Zofran) tab 4 mgJump to med 4 mg, On Tongue, Q6H PRN Nausea, Vomiting, Starting on Fri11/17/24 at 1233, Until 11/21/24 at 1418, Post-op Or ondansetron (Zofran) inj 4 mgJump to med 4 mg, IV Push, Q6H PRN Other, May use for nausea or vomiting if patient unable to take oral ondansetron, Starting on Fri11/17/24 at 1233, Until 11/21/24 at 1418, Post-op documented in this encounter Advance Directives * [...] occurred with: Not Discussed Care Teams Manager Of Compliance Relationship Specialty Start Date End Date Marge Leal MD [address] [place] [address] [place] [id number] PCP - General Family Medicine 04/13/24 documented as of this encounter
--- OUTSIDE RECORDS SUMMARY | 2025-01-12 18:04 | External Medical Summary ---
Author Name Unknown Address Unknown Organization K01:LABORATORY [facility] [place] - [address] [place] [address] Laboratory Report Ordering Provider Test Date Status AMOS BRENNAN 11/20/2024 05:25:00 Final Observation Date Value Abnormality Reference (Units ) Status BUN 11/20/2024 05:25:00 19 6-20 (mg/dL) Final Creatinine 11/20/2024 05:25:00 0.9 0.5-1.0 (mg/dL) Final Glomerular filtration rate/1.73 sq M.predicted [Volume Rate/Area] in Serum, Plasma or Blood by Creatinine-based formula (CKD-EPI) 11/20/2024 05:25:00 64 >=60 (mL/min) Final eGFR is calculated based on the CKD-EPI 2020 equation. Sodium 11/20/2024 05:25:00 137 135-146 (m mol/L) Final Potassium 11/20/2024 05:25:00 3.3 Below low normal 3.5 -5.1 (mmol/L) Final Cl 11/20/2024 05:25:00 98 98-107 (mm ol/L) Final CO2 11/20/2024 05:25:00 28 22-32 (mmo l/L) Final Anion gap 11/20/2024 05:25:00 11 7-15 (mmol /L) Final Glucose 11/20/2024 05:25:00 111 70-120 (mg /dL) Final Calcium 11/20/2024 05:25:00 8.6 8.4-10.2 ( mg/dL) Final Albumin 11/20/2024 05:25:00 3.5 Below low normal 3.8 -5.0 (g/dL) Final Phosphate 11/20/2024 05:25:00 2.8 2.5-4.8 (m g/dL) Final Performing Location LABORATORY [facility] [place] - [address] [place] [id number]
--- OUTSIDE RECORDS SUMMARY | 2025-01-12 18:04 | External Medical Summary ---
Author Name Unknown Address Unknown Organization : Laboratory Report Ordering Provider Test Date Status PRADIP ALVARES 11/17/2024 10:29:14 Final Observation Date Value Abnormality Reference (Units) Status Blood draw [PhenX] 11/17/2024 10:29:14 Arterial Draw Final pH, POC (i-STAT) 11/17/2024 10:29:14 7.325 Below low normal 7.350-7.450 Final PCO2 POC (i-STAT) 11/17/2024 10:29:14 50.5 Above high normal 35.0-45.0 (mm Hg) Final PO2 POC (i-STAT) 11/17/2024 10:29:14 252 Above high normal 75-100 (mm Hg) Final Base excess standard in Arterial blood by calculation 11/17/2024 10:29:14 0 -2-2 (mmol/L) Final Bicarbonate, Venous, POC (i-STAT) 11/17/2024 10:29:14 26.3 23.0-31.0 (mmol/L) Final O2 Sat, calculated POC (i-STAT) 11/17/2024 10:29:14 100.0 Above high normal 94.0-98.0 (%) Final Glucose, whole blood 11/17/2024 10:29:14 153 Above high normal 70-120 (mg/dL) Final Potassium, Whole Blood 11/17/2024 10:29:14 3.0 Below low normal 3.5-5.1 (mmol/L) Final Sodium, Whole Blood 11/17/2024 10:29:14 136 135-146 (mmol/L) Final Calcium, Ionized, Whole Blood 11/17/2024 10:29:14 1.15 1.13-1.32 (mmol/L) Final Hemoglobin POC (i-STAT) 11/17/2024 10:29:14 12.2 12.0-15.3 (g/dL) Final HCT 11/17/2024 10:29:14 36 36-45 (%) Final Oxygen/Total gas setting [Volume Fraction] Ventilator 11/17/2024 10:29:14 85 (%) Final Performing Location
--- OUTSIDE RECORDS SUMMARY | 2025-01-12 18:04 | External Medical Summary ---
Author Name Unknown Address Unknown Organization K01:LABORATORY [facility] - [address] [place] [address] Laboratory Report Ordering Provider Test Date Status AMOS BRENNAN 11/18/2024 05:29:00 Final Observation Date Value Abnormality Reference (Units ) Status Magnesium 11/18/2024 05:29:00 2.0 1.5-2.6 (m g/dL) Final Performing Location LABORATORY [facility] - [address] [place] [address]
--- OUTSIDE RECORDS SUMMARY | 2025-01-12 18:04 | External Medical Summary | Summary of Care ---
Author Name Unknown Organization [facility] Address [address] [facility] [place] [address] Phone [phone] Care Team Providers Care Co Founder And Chairman Name Role Phone Marge Leal MD Primary Care Provide r Encounter Details Date Type Department Care Team (Late st Contact Info) Description 11/08/2024 Orders Only Outcomes Research Department [address] [facility] [id number] Jennifer Lindsay CHRA My[employer] Research Other*[id number] Allergies Active Allergy Reactions Criticality Noted Date Comments Varenicline Neuro complications (Please comment) Low 08/23/2019 Vivid nightmares Lisinopril Edema face/lips/tongue High 03/29/2014 Metoprolol Tartrate Edema face/lips/tongue,Other (Please comment) High 05/07/2019 Facial swelling, airway closing up documented as of this encounter (statuses as of 11/08/2024) Medications aspirin 81 MG chewable tabletIndications: IN [...] at bedtime as needed for Sleep. Active documented as of this encounter (statuses as of 11/08/2024) Active Problems Problem Noted Date Diagnosed Date [...] as of this encounter (statuses as of 11/08/2024) Resolved Problems Problem Noted Date Diagnosed Date [...] as of this encounter (statuses as of 11/08/2024) Immunizations Name Administration Dates Next Due Pneumococcal [...] AM EDT documented as of this encounter Plan of Treatment Upcoming Encounters Date Type Department Care Team (Latest Contact Info) Description 11/17/2024 9:07 AM EST Hospital En[place] [facility] [place] [facility] [place] [address] [place] [facility] [place] [address] Lee Gomez MD [address] [place] [address] 11/17/2024 9:07 AM EST Anesthesia Event [place] [facility] [place] [facility] [facility] [place] [place] [address] [place] [facility] [place] [address] Jeny Lozada RN 11/17/2024 9:07 AM EST - 11/17/2024 1:28 PM EST Surgery [place] [facility] [place] [facility] [place] [address] [place] [address] Lee Gomez MD [address] [place] [address] ROBOTIC THORACOSCOPY W/ WEDGE RESECTION, INITIAL 01/28/2025 10:20 AM EDT Office Visit [address] [phone] Rafael Ochoa CRNP [address] [place] [address] [place] [phone] 02/15/2025 10:40 AM EDT Office Visit Neurology [facility] [place] [address] [place] [address] Corey Smiley MD [address] [place] [address] 09/02/2025 10:00 AM EST Office Visit Family Medicine [address] [place] [phone] Marge Leal MD [address] [place] [address] [place] [id number] Scheduled Orders Name Type Priority Associated Diagnoses Orde r Schedule MYCODE SUBSEQUENT ADULT Lab Routine [employer] Research Other*[id number] Every 6 Months for 2 Occurrences starting 11/08/2024 until 11/28/2025 Scheduled Procedures Name Priority Associated Diagnoses Date/Ti me ROBOTIC THORACOSCOPY W/ E RESECTION, INITIAL Nodule of upper lobe of left lung 11/17/2024 9:07 AM EST ROBOTIC THORACOSCOPY WITH LYMPHADENECTOMY Nodule of upper lobe of left lung 11/17/2024 9:07 AM EST COLONOSCOPY FLEXIBLE PROXIMA L DIAGNOSTIC Recall Constipation, unspecified constipation type Health Maintenance Due Date Last Done Comments DISCUSS TOBACCO CESSATION (REFER TO SMARTSET #5951) 1950 Alpha-1 Antitrypsin 1969 Cologuard 1996 Fecal [...] 04/13/2025 024, 12/25/2022, 09/03/2021, Additional history exists CKD PHOS USE SMARTSET 12231 04/13/202503/29, 12/25/2022, 09/03/2021, Additional history exists GFR 04/28/2025 10/29/2024, 03/29, 08/22/2023, Additional history exists CKD HGB USE SMARTSET 55130 10/29/202510/29, 10/29/2024, 10/10/2023, Additional history exists O2 ASSESSMENT COMPLETED IN PAST YEAR FOR COPD 10/29/2025 10/29/2024 Colonoscopy 10/07/2026 10/07/2023, 05/2024, 07/25/2023, Additional history exists Colorectal Cancer Screening 10/07/2026 DTap/Tdap Vaccines (3 - Td or Tdap) 09/20/2029 09/20/2019, 01/23/2009 Pneumococcal Vaccine: 50+ Years Completed 07/27/2018, 09/24/2016, 01/23/2009 VITAMIN D LEVEL ONCE IN A LIFETIME-USE SMARTSET# 84922 Completed 06/27/2023, 03/01/2019, 03/26/2017, Additional history exists [...] this encounter Medical Devices Implanted Type Area Family Medicine Physician Device Identifier Shelf Expiration Date Model / Serial / Lot Graft Allomax 1.0 6x16cm - [id number] - [id number] Implanted:Qty: 1 on 07/03/2015 by Jere Souza [place] [facility] [place]: Breast CR BARD : DAVOL 08/28/2019 [id number] / [id number] / [id number] Graft Allomax 1.0 6x16cm - [id number] - [id number] Implanted:Qty: 1 on 07/03/2015 by Jere Souza MD at [facility] Left: Breast CR BARD : DAVOL 04/28/2017 [id number] / [id number] / [id number] Implant Breast Li+ 350-2251bc - [id number] Implanted:Qty: 1 on 12/28/2015 by Jere Souza [place] [facility] [place]: Breast MENTOR DANYELLE 03/28/2016 [id number] / / [id number] Implant Breast Li+ 350-2251bc - [id number] Implanted:Qty: 1 on 12/28/2015 by Jere Souza [place] [facility] [place]: Breast MENTOR DANYELLE 03/28/2016 [id number] / / [id number] documented as of this encounter Visit Diagnoses Diagnosis Nodule of upper lobe of left lung- Primary [employer] Other*[id number] Nodule of upper lobe of left lung [...] Directives occurred with: Not Discussed Care Teams Co Founder And Chairman Relationship Specialty Start Date End Date Marge Leal MD [address] [place] [address] [place] [phone] PCP - General Family Medicine 04/13/24 documented as of this encounter
--- OUTSIDE RECORDS SUMMARY | 2025-01-12 18:05 | External Medical Summary ---
Author Name Unknown Address Unknown Organization K01:[facility] - [address] [place] [address] Laboratory Report Ordering Provider Test Date Status PRADIP ALVARES 10/29/2024 13:00:00 Final Is this for Pre-Surgical Yolis ting (i.e.desired expiration date 30 days from collection)?\X09\
Yes

Has this patient been transfused or within the last 3 months?\X09\
No

What is the Location of the surgery?\X09\
C

What is the Date of the surgery?\X09\
11/17/2024 Observation Date Value Abnormality Reference (Units ) Status ABO 10/29/2024 13:00:00 O Final RH 10/29/2024 13:00:00 Negative Final RED BLOOD CELL ANTIBODY SCREEN 10/29/2024 13:00:00 Negative Final SPECIMEN EXPIRATION DATE 10/29/2024 13:00:00 11/01/2024 23:59 Final Performing Location [facility] - [address] [place] [address]
--- OUTSIDE RECORDS SUMMARY | 2025-01-12 18:05 | External Medical Summary | Summary of Care ---
Author Name Unknown Organization [facility] [address] [place] [address] Phone [phone] Care Team Providers Care Shop Teacher Name Role Phone Marge Leal MD Primary Care Provide r Reason for Visit * Reason Onset Date Comments Pre-Op Testing 10/29/2024 Encounter Details Date Type Department Care Team (Late st Contact Info) Description 10/29/2024 1:00 PM EST Pre-Admission Testing [facility] [address] [facility] [id number] [facility] [address] [id number] Pre-operative examination*; Nodule of upper lobe of left lung Allergies Active Allergy Reactions Criticality Noted Date Comments Varenicline Neuro complications (Please comment) Low 08/23/2019 Vivid nightmares Lisinopril Edema face/lips/tongue High 03/29/2014 Metoprolol Tartrate Edema face/lips/tongue,Other (Please comment) High 05/07/2019 Facial swelling, airway closing up documented as of this encounter (statuses as of 10/29/2024) Medications aspirin 81 MG chewable tabletIndications: IN [...] as of this encounter (statuses as of 10/29/2024) Active Problems Problem Noted Date Diagnosed Date [...] as of this encounter (statuses as of 10/29/2024) Resolved Problems Problem Noted Date Diagnosed Date [...] as of this encounter (statuses as of 10/29/2024) Immunizations Name Administration Dates Next Due Pneumococcal [...] (Shingrix) 09/20/2019 documented as of this encounter Anesthesia Record Procedure Summary Procedure Name Responsible Anesthesiologist Anesthesia Start Time Anesthesia Stop Time ROBOTIC THORACOSCOPY W/ WEDGE RESECTION, INITIAL (Left) Events No events on file. Meds * Agents No agents on file. * Blood No blood administrations on file. Lines, Drains, and Airways No LDAs on file. documented in this encounter Social History Tobacco Use Types [...] ages 0-17 years) Not on file 07/13/2024 Comments No Sex and Gender Information Value Date Recorded Sex Assigned at Female 12/23/2023 11:41 AM EDT Legal Sex Female 5:34 AM EST Gender Identity Female 12/23/2023 11:41 AM EDT Sexual Orientation Straight 12/23/2023 11 :41 AM EDT documented as of this encounter Last Filed Vital Signs Vital Sign Reading Time Taken Comments Blood Pressure 138/62 10/29/2024 1:34 PM EST Pulse 73 10/29/2024 1:34 PM EST Temperature - - Respiratory Rate 18 10/29/2024 1:34 PM EST Oxygen Saturation 96% 10/29/2024 1:34 PM EST Inhaled Oxygen Concentration - - Weight - - Height - - Body Mass Index - - documented in this encounter Patient Instructions * Patient Instructions* Jeny Lozada RN - 10/29/2024 1:39 PM EST [facility]: Contact # [phone] Directions to Surgical Suite in from the [facility] Entrance The Surgical Waiting Room can be found in the [facility]. Enter through Main [facility] Entrance and the Waiting Room is directly in front of you. Proceed to check in and give them your name. Directions to Surgical Suite from the East Entrance Enter the East entrance and follow the hallway to the J elevator. Take the J elevator up to Level 1. Continue down the long hallway to the main [facility]. The Surgical Waiting Room will be on your Right. Proceed to check in and give them your Name. Directions to Surgical Suite from the Parking Garage Enter the [facility] lobby and proceed down the reed to the left. At the end of the reed, turn right. Continue down the long hallway to the main [facility]. The Surgical Waiting Room will be on your Right. Proceed to check in and give them your Name. THANK YOU FOR CHOOSING [facility]! PRE-OP PATIENT INFORMATION AND EDUCATION: MEDICATION INSTRUCTIONS: The day of surgery/procedure, you may TAKE the following medications with a sip of water up to 2 hours prior to your arrival time: - If your normal morning routine take Duloxetine the morning of surgery. No tobacco products after midnight. AVOID/ DO NOT TAKE any medications the morning of surgery/procedure that are not listed above. STOP taking the following medications the noted number of days prior to surgery/procedure unless otherwise specified by your surgeon: 24 hours prior to surgery/procedure DO NOT consume any alcohol. DO NOT use medical marijuana. DO NOT smoke or use tobacco products of any kind after midnight prior to surgery. Please follow surgeon's instructions regarding use of aspirin, Coumadin, Plavix, Eliquis, and any other blood thinner including NSAIDs (non-steroidal anti- inflammatory drugs, eg, Advil, Ibuprofen, Motrin, Aleve, Naproxen). 10 days prior to surgery/procedure Stop all Herbal supplements, Green Tea, Turmeric, Melatonin, CBD, THC, etc. Stop all Vitamins (including Vitamin E) *Using any of these products may increase your risks of procedural complications. IF IT IS LESS THAN RECOMMENDED STOPPAGE TIME PLEASE STOP AT TIME OF NOTIFICATION. FASTING RECOMMENDATIONS: To reduce risk, it is important for all elective surgery patients to follow the specific fasting guidelines listed below. DO NOT EAT after midnight on the night prior to your surgery date. You are allowed to drink clear liquids up to two hours prior to arrival time to the hospital or surgery center. Examples of clear liquids include water, clear fruit juice without pulp, clear carbonated beverages, clear tea, and black coffee. Any drinks given by your surgical service take as directed. THE DAY BEFORE YOUR SURGERY: -Drink plenty of fluid the day before your surgery. Contact your surgeon's office if you develop any of the following within 2 weeks of surgery: A cold Infection Fever Shingles Chicken pox or exposure to chicken pox Open areas such as scrapes, cuts, estrada or other skin conditions Rashes GENERAL INSTRUCTIONS FOR PREPARING FOR SURGERY: BATHING INSTRUCTIONS: Bathe the evening prior to and the morning of surgery/procedure. Cleanse your body using ONLY anti-bacterial soap (eg, Dial, Safeguard) or any specific soap/cleansers and instructions provided by your surgeon (eg, Chlorhexidine). -You should brush your teeth the morning of surgery. Do NOT apply any lotions, powders, sprays, creams, oils, make-up, or deodorants after bathing. No hairspray, or nail [place] on fingers or toes. Day of surgery/procedure do not use tampons. If you wear contacts wear your eyeglasses if available otherwise bring your contact supplies with you to remove them prior to your surgery/procedure. If you wear glasses or dentures, please bring cases in which you can store them during your surgery. Please remove all piercings and jewelry and leave them at home. Wear comfortable and loose clothing. -Please leave all valuables at home. -If you use a CPAP and are staying overnight, please bring your CPAP machine and mask and label it with your name. -If you use an assistive mobility device (walker, cane, etc), please label it with your name and bring to hospital. -An escort electric screw driver operator is required if you are being discharged the same day of the surgery. You should have a responsible adult over the age of 18 [address] you home. This person should be present with youin the hospital at the time of discharge and for the first 24 hours after the surgery to support your needs. If you are taking a taxi home, you must have your responsible republican accompany you in the taxi ride home at the time of discharge. OR times subject to change. Please check voicemail messages the day/evening before your surgery forany updates. PRE-OP: You will be taken to the pre-op area where your vital signs (blood pressure, pulse and temperature)will be taken. Any preparations that need to be done will be done there. When it is time for your surgery, you will be taken to the operating room. PARENTS OF PEDIATRIC PATIENTS WILL BE ALLOWED TO STAY WITH THEIR CHILDREN UNTIL THEY ARE ESCORTED TO THE OPERATING ROOM OUTPATIENT SURGERY PATIENTS: After your surgery you will be taken to the Same Day Surgery Unit when you are awake and will go home from there. You will get instructions about your home care before you leave. Arrange to have someone drive you home from the hospital. You may not drive for 24 hours after anesthesia. You must havean adult stay with you at home for 24 hours after your operation. This is very important. If you are not able to comply with these guidelines, your Short Stay surgery cannot be done. ADMISSION PATIENTS: After your stay in the recovery area, you will be taken to your room. Your family may visit you in your room based on current visitation policy. If a next day discharge is expected, it is important to make arrangements for a electric screw driver operator to take you home. Please be aware our visitation policies are subject to change Professionals, attendants, caregivers or family members are allowable visitors for patients with intellectual, developmental or cognitive disabilities, communication barriers or behavioral concerns. Because patients' and families' needs vary, they will be taken into account when applying visitation restrictions. ANESTHESIA INFORMATION This information has been prepared to help you and your family better understand the process of anesthesia, so that you may help make well-informed decisions about your care. This information is alsoprovided to guide your completion of the [facility] anesthesia consent form which addresses real, but infrequent, problems associated with anesthesia. IMPORTANT INFORMATION TO PREVENT YOUR SURGERY FROM BEING CANCELLED/ RESCHEDULED: --You are required to have a electric screw driver operator to take you home whether you are admitted to the hospital following your surgery or not --You are required to have a responsible adult with you for the first 24 hours after surgery to support your needs Types of Anesthesia: Local Anesthesia Local anesthetic drugs (numbing drugs) are usually injected into the tissues to numb just the specific location of your body requiring minor surgery, such as an area of your hand or foot. Regional Anesthesia -Regional anesthesia involves the use of local anesthetics (numbing drugs) to numb larger areas of your body by blocking nerves to those areas. This is commonly referred to as a nerve block. Another way of performing regional anesthesia is by blocking nerves of the spinal cord by injecting numbing m edicines with great exactness around those nerves. This is called spinal or epidural anesthesia depending on exactly where the medication is injected. The type of regional anesthesia selected dependson the type of surgery and whether regional anesthesia is being done to help with pain after surgery or as a part of the anesthesia for surgery. You may remain awake, be sedated, or be given a general anesthetic depending on the type of surgery and the type of regional anesthesia performed Monitored Anesthesia Care (MAC) -Describes a range of sedation that can be given to a patient undergoing a procedure. The level of sedation usually depends on what is needed for the procedure being performed. A patient could be awake and aware of the procedure being performed but be relaxed and able to follow instructions as needed or may be unaware of what is happening and only rouse to significant stimulation. A patient may be able to speak, hear things around them, and answer questions and follow commands but is not in pain or anxious. A patient may experience varying depths of sedation during the procedure. The use of general anesthesia could result if this type of anesthesia is ineffective. General Anesthesia - Occurs by using a combination of medications to put a patient into a deep, sleep-like, unresponsive state for surgery. This is required for many surgical procedures. Under general anesthesia, a patient does not feel pain and is unaware of what is happening during the procedure. Systems in the body may not function normally while a patient is under general anesthesia. They are monitored by the anesthesia provider and may need to be assisted while a patient is under general anesthesia. For example, a breathing device may need to be placed in the airway to assist breathing and medications may need to be given to ensure that your blood pressure and heart rate remain normal. Risks of Anesthesia: Regional/Local/Nerve Blocks -Include but are not limited to, , cardiac or respiratory arrest, permanent complete paralysis, permanent nerve injury, seizure, spinal headache, backache, pain in buttocks and legs, infection, bleeding, leakage of spinal fluid, inadequate pain relief, bowel or bladder dysfunction, prolonged numbness or pain, temporary drop in blood pressure, or allergic reaction to the medications. Monitored Anesthesia Care (MAC) -Common risks include temporary dizziness, light-headedness, nausea and/or vomiting, and leakage ofintravenous fluid into the tissues with swelling or discoloration of the area or residual pain. Less common risks include, but are not limited to, , heart attack, permanent brain damage, stroke,pneumonia, blood clots, awareness, nerve stretch injury of your arm, neck or leg, permanent liver damage and allergic reaction to the medications. General Anesthesia -More common risks include temporary sore throat, pain in the neck or other muscles, dizziness, light-headedness, nausea and/or vomiting, and leakage of intravenous fluid into the tissues with swelling or discoloration of the area or residual pain. Less common risks include, but are not limited to,, heart attack, permanent brain damage, stroke, pneumonia, blood clots, irritation of the cornea of your eye, vision loss, loosened or broken teeth, or other oral injuries, awareness, nerve stretch injury of the arm, neck or leg, hoarseness, laryngospasm, permanent liver damage and allergic reaction to the medications. History of anesthesia complications: If you or a family member have had a complication related to anesthesia such as difficulty with placement of a breathing tube or a serious reaction to a medication administered for anesthesia, pleasetell your anesthesia provider. Having this information will help keep you safe while under anesthesia Nausea: A common side effect of anesthesia is nausea, but some patients do experience both nausea and vomiting. If you have experienced nausea or vomiting after anesthesia in the past, be sure to tell your anesthesia provider so medication can be given to help prevent it from happening again. Patient safety/consenting process: All surgical procedures and anesthetics have some small risks. They are dependent upon many factorsincluding the type of surgery and your medical condition. That is why it is important to know aboutany underlying medical problems, how they are treated and how they can be managed to reduce the risks of anesthesia and surgery. Thus, it is important for your anesthesia provider to ask detailed questions about your medical history, and to know what prescription medications you are taking, including dosages and schedules, as well as any over the counter or herbal medicines and supplements. You must notify the doctor of any of the following: -if you are or possibly -if you have any sensitivity to medications -present mental and physical condition -if recently consumed alcohol or non-clear liquids -if you are presently on psychiatric mood-altering drugs or other medications If you are a female of child-bearing age and you use any form of hormone-based contraception, please continue to use it and, in addition, use an alternative form of contraception, such as condoms andspermicide for a month after discharge from the hospital. This is because during the hospitalization you might receive one or more medications that may render hormone-based contraceptives ineffective for several days or weeks. The affected contraceptives include, but are not limited to, the usual contraceptive pills, most types of intrauterine devices, Depo-Provera shots, hormonal patches, and hormonal vaginal rings. If you are not sure, contact your primary care physician, your retail presentation specialist, or your surgeon to check if this warning applies to you. You may need to have invasive monitoring, which includes the insertion of catheters into your veinsand arteries. This is done to measure pressures, to take blood samples, and may be used in emergentsituations for intravenous access. This monitoring has risks including, but not limited to, injury to your arteries, lung collapse, bleeding, nerve injury as well as the risks related to anesthesia. An esophageal probe may be used to monitor your heart, this monitor has risks which include sore throat, hoarseness, difficulty with swallowing, loosened or broken teeth and esophageal injury. Major complications are rare but could include , respiratory distress, an abnormal heartbeat, infection, and bleeding. As part of the consent to administer anesthesia authorization you will discuss the following with the anesthesia doctor and his/her associates: -your present condition and diagnosis as it pertains to anesthesia or sedation administration -a description of the proposed anesthetic/sedation technique or procedure to be used -significant risks and benefits of the proposed anesthetic/sedation technique or procedure -any applicable alternatives, including their risks and benefits -if applicable, use of back-up method of contraception for 30 days after discharge -if applicable, the option of having no treatment and the potential results of this -if your procedure is in an outpatient surgery setting-the risk associated with having this procedure in this type of setting should be discussed as well as the potential need for transfer to the hospital if necessary Please be sure to have all questions that you have answered prior to signing the consent to administer anesthesia. You can make your care safer by being an active, informed patient. It is important that you are involved in your health care. Being a good patient does not mean being a silent one. If you have questions, problems, safety concerns or unmet needs, please let us know if you would like further clarification of the "Patient Rights and Responsibilities" as they pertain to you, or would like more information regarding our complaint and for grievance process, please call the site where you receive care and request to speak withthe patient advocate line. documented in this encounter Progress Notes * Jeny Lozada RN - 10/29/2024 1:39 PM EST ~SEE ANESTHESIA EVENT FOR PRE-OP ANESTHESIA ASSESSMENT~ ~~~~~~~~~~~~~~~~~~~~~~~~~~~~~~~~~~~~~~~~~~~~~~~~~~~~ Patient identified by name/birthdate Optime case procedure confirmed with surgical consent Laterality confirmed as Left Surgery date at time of Pre-Surgery Center Encounter: 11/17/2024 What procedure is patient having? Procedure: ROBOTIC THORACOSCOPY W/ WEDGE RESECTION, INITIAL ([id number]) Laterality Anesthesia Op Region Left General robotic left upper lobe wedge, 3hrs, general-double lumen HfAM 8 post op Procedure: ROBOTIC THORACOSCOPY WITH LYMPHADENECTOMY ([id number]) Anesthesia Consent pool notified: N/A In an emergency, is patient willing to accept blood products or blood transfusion? unknown Does Blood Bank order need placed? Yes; order(s) placed by surgeon. Anesthesia evaluation requested per case documentation. No Preop Eval Requested? No PATIENT EDUCATION SCREENING Education Screening: Patient and Child - son Matthew Preoperative bathing instructions were reviewed with patient. Motivation Level: Asks Questions and Eager to Learn Language Barrier: No Physical Barrier: N/A Patient Preferred Learning Methods: Reading and Lecture LEARNING NEED: Printed Patient Education Given: Preop Information: Adult Persons present for education: Patient and Child METHOD: One to One and Handout OUTCOME: State / Describe / Explain and Needs Reinforcement PATIENT INSTRUCTIONS GIVEN: General Preoperative Instructions Reviewed Medication Instructions Reviewed NPO Instructions Reviewed Verbalizes understanding of education: Yes Pre-Anesthesia Review of Systems, Health History and Education completed Signature: Jeny Lozada RN 10/29/2024 documented in this encounter Nursing Notes * Jeny Lozada RN - 10/29/2024 1:59 PM EST [facility]: Contact # [phone] Directions to Surgical Suite in from the [place] Entrance The Surgical Waiting Room can be found in the Lobby [facility]. Enter through Main Lobby Entrance and the Waiting Room is directly in front of you. Proceed to check in and give them your name. Directions to Surgical Suite from the East Entrance Enter the East entrance and follow the hallway to the J elevator. Take the J elevator up to Level 1. Continue down the long hallway to the main [facility]. The Surgical Waiting Room will be on your Right. Proceed to check in and give them your Name. Directions to Surgical Suite from the Parking Garage [facility] and [facility] reed to the left. At the end of the reed, turn right. Continue down the long hallway to the main [facility]. The Surgical Waiting Room will be on your Right. Proceed to check in and give them your Name. THANK YOU FOR CHOOSING [facility]! PRE-OP PATIENT INFORMATION AND EDUCATION: MEDICATION INSTRUCTIONS: The day of surgery/procedure, you may TAKE the following medications with a sip of water up to 2 hours prior to your arrival time: - If your normal morning routine take Duloxetine the morning of surgery. No tobacco products after midnight. AVOID/ DO NOT TAKE any medications the morning of surgery/procedure that are not listed above. STOP taking the following medications the noted number of days prior to surgery/procedure unless otherwise specified by your surgeon: 24 hours prior to surgery/procedure DO NOT consume any alcohol. DO NOT use medical marijuana. DO NOT smoke or use tobacco products of any kind after midnight prior to surgery. Please follow surgeon's instructions regarding use of aspirin, Coumadin, Plavix, Eliquis, and any other blood thinner including NSAIDs (non-steroidal anti- inflammatory drugs, eg, Advil, Ibuprofen, Motrin, Aleve, Naproxen). 10 days prior to surgery/procedure Stop all Herbal supplements, Green Tea, Turmeric, Melatonin, CBD, THC, etc. Stop all Vitamins (including Vitamin E) *Using any of these products may increase your risks of procedural complications. IF IT IS LESS THAN RECOMMENDED STOPPAGE TIME PLEASE STOP AT TIME OF NOTIFICATION. FASTING RECOMMENDATIONS: To reduce risk, it is important for all elective surgery patients to follow the specific fasting guidelines listed below. DO NOT EAT after midnight on the night prior to your surgery date. You are allowed to drink clear liquids up to two hours prior to arrival time to the hospital or surgery center. Examples of clear liquids include water, clear fruit juice without pulp, clear carbonated beverages, clear tea, and black coffee. Any drinks given by your surgical service take as directed. THE DAY BEFORE YOUR SURGERY: -Drink plenty of fluid the day before your surgery. Contact your surgeon's office if you develop any of the following within 2 weeks of surgery: A cold Infection Fever Shingles Chicken pox or exposure to chicken pox Open areas such as scrapes, cuts, estrada or other skin conditions Rashes GENERAL INSTRUCTIONS FOR PREPARING FOR SURGERY: BATHING INSTRUCTIONS: Bathe the evening prior to and the morning of surgery/procedure. Cleanse your body using ONLY anti-bacterial soap (eg, Dial, Safeguard) or any specific soap/cleansers and instructions provided by your surgeon (eg, Chlorhexidine). -You should brush your teeth the morning of surgery. Do NOT apply any lotions, powders, sprays, creams, oils, make-up, or deodorants after bathing. No hairspray, or nail [place] on fingers or toes. Day of surgery/procedure do not use tampons. If you wear contacts wear your eyeglasses if available otherwise bring your contact supplies with you to remove them prior to your surgery/procedure. If you wear glasses or dentures, please bring cases in which you can store them during your surgery. Please remove all piercings and jewelry and leave them at home. Wear comfortable and loose clothing. -Please leave all valuables at home. -If you use a CPAP and are staying overnight, please bring your CPAP machine and mask and label it with your name. -If you use an assistive mobility device (walker, cane, etc), please label it with your name and bring to hospital. -An escort electric screw driver operator is required if you are being discharged the same day of the surgery. You should have a responsible adult over the age of 18 [address] you home. This person should be present with youin the hospital at the time of discharge and for the first 24 hours after the surgery to support your needs. If you are taking a taxi home, you must have your responsible republican accompany you in the taxi ride home at the time of discharge. OR times subject to change. Please check voicemail messages the day/evening before your surgery forany updates. documented in this encounter Plan of Treatment Upcoming Encounters Date Type Department Care Team (Latest Contact Info) Description 11/17/2024 8:15 AM EST Hospital Encounter [place] [facility] [facility] [address] [place] [facility] [place] [address] Lee Gomez MD [address] [place] [address] 11/17/2024 8:15 AM EST Anesthesia Event [place] [facility] [facility] [place] [address] [place] [address] Jeny Lozada RN 11/17/2024 8:15 AM EST - 11/17/2024 12:36 PM EST Surgery [place] [facility] [facility] [address] [place] [address] Lee Gomez MD [address] [place] [address] ROBOTIC THORACOSCOPY W/ WEDGE RESECTION, INITIAL 01/28/2025 10:20 AM EDT Office Visit Family [address] [phone] Rafael Ochoa CRNP [address] [place] [address] [place] [address] 02/15/2025 10:40 AM EDT Office Visit Neurology [address] [address] Corey Smiley MD [address] [place], [place] [phone] 09/02/2025 10:00 AM EST Office Visit Family Medicine [address] [phone] Marge Leal MD [address] [place] [address] [place] [phone] Scheduled Procedures Name Priority Associated Diagnoses Date/Ti me ROBOTIC THORACOSCOPY W/ FRIG E RESECTION, INITIAL Nodule of upper lobe of left lung 11/17/2024 8:15 AM EST ROBOTIC THORACOSCOPY WITH LYMPHADENECTOMY Nodule of upper lobe of left lung 11/17/2024 8:15 AM EST COLONOSCOPY FLEXIBLE PROXIMA L DIAGNOSTIC Recall Constipation, unspecified constipation type Health Maintenance Due Date Last Done Comments DISCUSS TOBACCO CESSATION (REFER TO SMARTSET #4092) 1950 Alpha-1 Antitrypsin 1969 Cologuard 1996 Fecal [...] 2024 08/15/2020, 07/07/2019, 07/27/2018, Additional history exists CKD HGB USE SMARTSET 91242 10/10/202410/10, 10/10/2023, 08/22/2023, Additional history exists GFR 10/14/2024 04/13/2024, 07/31, 06/27/2023, Additional history exists Albumin/Creatinine Ratio 04/13/2025 024, 12/25/2022, 09/03/2021, Additional history exists CKD PHOS USE SMARTSET 90934 04/13/202503/29, 12/25/2022, 09/03/2021, Additional history exists O2 ASSESSMENT COMPLETED IN PAST YEAR FOR COPD 10/29/2025 10/29/2024 Colonoscopy 10/07/2026 10/07/2023, 05/2024, 07/25/2023, Additional history exists Colorectal Cancer Screening 10/07/2026 DTap/Tdap Vaccines (3 - Td or Tdap) 09/20/2029 09/20/2019, 01/23/2009 Pneumococcal Vaccine: 50+ Years Completed 07/27/2018, 09/24/2016, 01/23/2009 VITAMIN D LEVEL ONCE IN A LIFETIME-USE SMARTSET# 13771 Completed 06/27/2023, 03/01/2019, 03/26/2017, Additional history exists [...] this encounter Medical Devices Implanted Type Area Music Rehabilitation Therapist Device Identifier Shelf Expiration Date Model / Serial / Lot Graft Allomax 1.0 6x16cm - [id number] - [id number] Implanted:Qty: 1 on 07/03/2015 by Jere Souza MD at [place] [facility] Right: Breast CR BARD : DAVOL 08/28/2019 [id number] / [id number] / [id number] Graft Allomax 1.0 6x16cm - [id number] - [id number] Implanted:Qty: 1 on 07/03/2015 by Jere Souza MD at [place] [facility] Left: Breast CR BARD : DAVOL 04/28/2017 [id number] / [id number] / [id number] Implant Breast Li+ 350-2251bc - [id number] Implanted:Qty: 1 on 12/28/2015 by Jere Souza MD at [place] [facility] Left: Breast MENTOR DANYELLE 03/28/2016 350-2251BC / / [id number] Implant Breast Li+ 350-2251bc - [id number] Implanted:Qty: 1 on 12/28/2015 by Jere Souza MD at [place] [facility] Right: Breast MENTOR DANYELLE 03/28/2016 [id number] / / [id number] documented as of this encounter Visit Diagnoses [...] Directives occurred with: Not Discussed Care Teams Shop Teacher Relationship Specialty Start Date End Date Marge Leal MD [address] [place] [address] [place] [phone] PCP - General Family Medicine 04/13/24 documented as of this encounter
--- OUTSIDE RECORDS SUMMARY | 2025-01-12 18:05 | External Medical Summary ---
Author Name Unknown Address Unknown Organization K01:LABORATORY [facility] - [address] [address] Laboratory Report Ordering Provider Test Date Status PRADIP ALVARES 10/29/2024 13:00:18 Final Test Canceled for reorder pu rposes. Observation Date Value Abnormality Reference (Units ) Status SPECIMEN EXPIRATION DATE 10/29/2024 13:00:18 Final Performing Location LABORATORY [facility] - [address] [facility] [address]
--- OUTSIDE RECORDS SUMMARY | 2025-01-12 18:05 | External Medical Summary ---
Author Name Unknown Address Unknown Organization K01:LABORATORY [facility] - [address] [place] [address] Laboratory Report Ordering Provider Test Date Status MICHELLE ROSARIO 10/29/2024 13:00:18 Final Observation Date Value Abnormality Reference (Units ) Status MYCODE SPECIMEN-SST 10/29/2024 13:00:18 Freezing of extracted DNA, whole blood and/or serum. Final Performing Location LABORATORY C - [address] [place] [address]
--- OUTSIDE RECORDS SUMMARY | 2025-01-12 18:05 | External Medical Summary ---
Author Name Unknown Address Unknown Organization K01:LABORATORY [facility] [place] - [address] [facility] [address] Laboratory Report Ordering Provider Test Date Status PRADIP ALVARES 10/29/2024 13:00:18 Final Observation Date Value Abnormality Reference (Units ) Status BUN 10/29/2024 13:00:18 17 6-20 (mg/dL) Final Creatinine 10/29/2024 13:00:18 1.0 0.5-1.0 (mg/dL) Final Glomerular filtration rate/1.73 sq M.predicted [Volume Rate/Area] in Serum, Plasma or Blood by Creatinine-based formula (CKD-EPI) 10/29/2024 13:00:18 62 >=60 (mL/min) Final eGFR is calculated based on the CKD-EPI 2020 equation. Sodium 10/29/2024 13:00:18 142 135-146 (m mol/L) Final Potassium 10/29/2024 13:00:18 4.1 3.5-5.1 (m mol/L) Final Cl 10/29/2024 13:00:18 101 98-107 (mm ol/L) Final CO2 10/29/2024 13:00:18 28 22-32 (mmo l/L) Final Anion gap 10/29/2024 13:00:18 13 7-15 (mmol /L) Final Glucose 10/29/2024 13:00:18 99 70-120 (mg /dL) Final Calcium 10/29/2024 13:00:18 9.5 8.4-10.2 ( mg/dL) Final Performing Location LABORATORY [facility] - [address] [facility] [address]
--- OUTSIDE RECORDS SUMMARY | 2025-01-12 18:05 | External Medical Summary ---
Author Name Unknown Address Unknown Organization K01:LABORATORY [facility] [place] - [address] [facility] [address] Laboratory Report Ordering Provider Test Date Status PRADIP ALVARES 10/29/2024 13:00:18 Final Observation Date Value Abnormality Reference (Units ) Status SYNC LEUKOCYTES IN BLOOD BY AUTOMATED COUNT 10/29/2024 13:00:18 3.76 Below low normal 4.00-10.80 (K/uL) Final Segs 10/29/2024 13:00:18 49.2 40.0-75.0 (%) Final Lymphs % 10/29/2024 13:00:18 36.7 18.0-42.0 (%) Final Monos 10/29/2024 13:00:18 9.3 1.0-11.0 (%) Final Eosinophils 10/29/2024 13:00:18 4.0 0.0-6.0 (%) Final Basos 10/29/2024 13:00:18 0.5 0.0-2.0 (%) Final Immature Granulocyte, Percent 10/29/2024 13:00:18 0.3 0.0-2.0 (%) Final Absolute Segs 10/29/2024 13:00:18 1.85 1.80-7.70 (K/uL) Final Lymphs, absolute 10/29/2024 13:00:18 1.38 1.00-4.80 (K/ul) Final Monos, Abs 10/29/2024 13:00:18 0.35 0.00-1.10 (K/uL) Final Eos, Abs 10/29/2024 13:00:18 0.15 0.00-0.70 (K/uL) Final Basos, Abs 10/29/2024 13:00:18 0.02 0.00-0.20 (K/uL) Final Immature Granulocytes, Number 10/29/2024 13:00:18 0.01 0.00-0.20 (K/uL) Final Performing Location LABORATORY [facility] - [address] [facility] [address]
--- OUTSIDE RECORDS SUMMARY | 2025-01-12 18:05 | External Medical Summary | Summary of Care ---
Author Name Unknown Organization [facility] Address [address] [facility] [place] [address] Phone [phone] Care Team Providers Care Farm Equipment Mechanic Apprentice Name Role Phone Marge Leal MD Primary Care Provide r Reason for Visit * Reason Comments Outpatient Testing Encounter Details Date Type Department Care Team (Late st Contact Info) Description 11/01/2024 10:30 AM EST Laboratory Laboratory [address] [place] [phone] [place] [address] Solitary pulmonary nodule Allergies Active Allergy Reactions Criticality Noted Date Comments Varenicline Neuro complications (Please comment) Low 08/23/2019 Vivid nightmares Lisinopril Edema face/lips/tongue High 03/29/2014 Metoprolol Tartrate Edema face/lips/tongue,Other (Please comment) High 05/07/2019 Facial swelling, airway closing up documented as of this encounter (statuses as of 11/01/2024) Medications aspirin 81 MG chewable tabletIndications: IN [...] as of this encounter (statuses as of 11/01/2024) Active Problems Problem Noted Date Diagnosed Date [...] as of this encounter (statuses as of 11/01/2024) Resolved Problems Problem Noted Date Diagnosed Date [...] as of this encounter (statuses as of 11/01/2024) Immunizations Name Administration Dates Next Due Pneumococcal [...] 11/17/2024 9:07 AM EST Hospital Encounter [place] [facility] [place] OPERATING ROOM [facility] [facility] [address] [place] [phone] Lee Gomez MD [address] [place] [address] 11/17/2024 9:07 AM EST Anesthesia Event [place] [facility], OPERATING ROOM [facility] [address] [place] [facility] [place] [phone] Jeny Lozada RN 11/17/2024 9:07 AM EST - 11/17/2024 1:28 PM EST Surgery [place] [facility] OPERATING ROOM [facility] [address] [place] [facility] [place] [phone] Lee Gomez MD [address] [place], [place] [phone] ROBOTIC THORACOSCOPY W/ WEDGE RESECTION, INITIAL 01/28/2025 10:20 AM EDT Office Visit Family Medicine [address] [place] [phone] Rafael Ochoa [address] [place] [address] 02/15/2025 10:40 AM EDT Office Visit Neurology [facility] [place] [address] [place] [address] Corey Smiley MD [address] [place] [address] 09/02/2025 10:00 AM EST Office Visit Family Medicine [address] [phone] Marge Leal MD [address] [place] [address] [place] [address] Pending Results Name Type Priority Associated Diagnoses Date /Time ABO/RH Lab Routine Solitary pulmonary nodule 11/01/2024 10:29 AM EST Scheduled Procedures Name Priority Associated Diagnoses Date/Ti [...] Additional history exists CKD PHOS USE SMARTSET 30537 04/13/202503/29, 12/25/2022, 09/03/2021, Additional history exists GFR 04/28/2025 10/29/2024, 03/29, 08/22/2023, Additional history exists CKD HGB USE SMARTSET 00877 10/29/202510/29, 10/29/2024, 10/10/2023, Additional history exists O2 ASSESSMENT COMPLETED IN PAST YEAR FOR COPD 10/29/2025 10/29/2024 Colonoscopy 10/07/2026 10/07/2023, 05/2024, 07/25/2023, Additional history exists Colorectal Cancer Screening 10/07/2026 DTap/Tdap Vaccines (3 - Td or Tdap) 09/20/2029 09/20/2019, 01/23/2009 Pneumococcal Vaccine: 50+ Years Completed 07/27/2018, 09/24/2016, 01/23/2009 VITAMIN D LEVEL ONCE IN A LIFETIME-USE SMARTSET# 60302 Completed 06/27/2023, 03/01/2019, 03/26/2017, Additional history exists [...] this encounter Medical Devices Implanted Type Area Batch Attendant Device Identifier Shelf Expiration Date Model / Serial / Lot Graft Allomax 1.0 6x16cm - [id number] - [id number] Implanted:Qty: 1 on 07/03/2015 by Jere Souza MD at OR [facility] Right: Breast CR BARD : IRENEOL 08/28/2019 [id number] / [id number] / [id number] Graft Allomax 1.0 6x16cm - [id number] - [id number] Implanted:Qty: 1 on 07/03/2015 by Jere Souza MD at OR [facility] Left: Breast CR BARD : DAVOL 04/28/2017 [id number] / [id number] / [id number] Implant Breast Li+ 350-2251bc - [id number] Implanted:Qty: 1 on 12/28/2015 by Jere Souza MD at [facility] Left: Breast MENTOR DANYELLE 03/28/2016 350-2251BC / / [id number] Implant Breast Li+ 350-2251bc - [id number] Implanted:Qty: 1 on 12/28/2015 by Jere Souza MD at OR [facility] Right: Breast MENTOR DANYELLE 03/28/2016 350-2251BC / / [id number] documented as of this encounter Visit Diagnoses Diagnosis Nodule of upper lobe of left lung- Primary Solitary pulmonary nodule Nodule of upper lobe of left lung [...] Directives occurred with: Not Discussed Care Teams Farm Equipment Mechanic Apprentice Relationship Specialty Start Date End Date Marge Leal MD [address] [place] [address] [place] [address] PCP - General Family Medicine 04/13/24 documented as of this encounter
--- OUTSIDE RECORDS SUMMARY | 2025-01-12 18:05 | External Medical Summary | Summary of Care ---
Author Name Unknown Organization [facility] Address [address] [facility] [address] Phone [phone] Care Team Providers Care Milk Route Deliverer Name Role Phone Marge Leal MD Primary Care Provide r Reason for Visit * Reason Onset Date Comments Pre-Op Testing 10/29/2024 Encounter Details Date Type Department Care Team (Late st Contact Info) Description 10/29/2024 1:00 PM EST Pre-Admission Testing Pre [facility] [address] [facility] [address] [facility] [phone] Pre-operative examination*; Nodule of upper lobe of left lung Allergies Active Allergy Reactions Criticality Noted Date Comments Varenicline Neuro complications (Please comment) Low 08/23/2019 Vivid nightmares Lisinopril Edema face/lips/tongue High 03/29/2014 Metoprolol Tartrate Edema face/lips/tongue,Other (Please comment) High 05/07/2019 Facial swelling, airway closing up documented as of this encounter (statuses as of 11/02/2024) Medications aspirin 81 MG chewable tabletIndications: IN [...] as of this encounter (statuses as of 11/02/2024) Active Problems Problem Noted Date Diagnosed Date [...] as of this encounter (statuses as of 11/02/2024) Resolved Problems Problem Noted Date Diagnosed Date [...] as of this encounter (statuses as of 11/02/2024) Immunizations Name Administration Dates Next Due Pneumococcal [...] Lozada RN - 10/29/2024 1:39 PM EST [facility]: Contact # [phone] Directions to Surgical Suite in from the [facility] Entrance The Surgical Waiting Room can be found in the [facility]. Enter through Main [facility] Entrance and the Waiting Room is directly in front of you. Proceed to check in and give them your name. Directions to Surgical Suite from the East Entrance Enter the East entrance and follow the hallway to the J elevator. Take the J elevator up to Level 1. Continue down the long hallway to the main [facility]. The Surgical Waiting Room will be on your Right. Proceed to check in and give them your Name. Directions to Surgical Suite from the Parking Garage Enter the [place] lobby and proceed down the reed to the left. At the end of the reed, turn right. Continue down the long hallway to the main [employer]. The Surgical Waiting Room will be on [...] deodorants after bathing. No hairspray, or nail chinese on fingers or toes. Day of surgery/procedure [...] name and bring to hospital. -An escort sulky driver is required if you are being discharged [...] taxi home, you must have your responsible libertarian accompany you in the taxi ride home [...] is important to make arrangements for a sulky driver to take you home. Please be aware [...] alsoprovided to guide your completion of the [facility] anesthesia consent form which addresses real, but infrequent, problems associated with anesthesia. IMPORTANT INFORMATION TO PREVENT YOUR SURGERY FROM BEING CANCELLED/ RESCHEDULED: --You are required to have a sulky driver to take you home whether you are [...] sure, contact your primary care physician, your front end software developer, or your surgeon to check if this [...] Procedure: ROBOTIC THORACOSCOPY W/ WEDGE RESECTION, INITIAL ([id number]) Laterality Anesthesia Op Region Left General robotic left upper lobe wedge, 3hrs, general-double lumen HfAM 8 post op Procedure: ROBOTIC THORACOSCOPY WITH LYMPHADENECTOMY ([id number]) Anesthesia Consent pool notified: N/A In an [...] Lozada RN 10/29/2024 documented in this encounter Procedure Notes * Yessenia Harkins MD - 10/29/2024 1:50 PM ESTAssociated Order(s): EKG REASON FOR STUDY: PRE OP CONCLUSIONS: Normal sinus rhythm Normal ECG When compared with ECG of 14-Jul-2019 12:22, No significant change was found Ventricular Rate: 74 Atrial Rate: 74 FL Interval: 170 QRS Duration: 84 QT/QTc: 416/461 ms P-R-T [place]: 59 : -7 : 49 degrees documented in this encounter Nursing Notes * Jeny Lozada, RN - 10/29/2024 1:59 PM EST [facility]: Contact # [phone] Directions to Surgical Suite in from the [facility] Entrance The Surgical Waiting Room can be found in the Lobby of [facility]. Enter through Main Lobby Entrance and the Waiting Room is directly in front of you. Proceed to check in and give them your name. Directions to Surgical Suite from the East Entrance Enter the East entrance and follow the hallway to the J elevator. Take the J elevator up to Level 1. Continue down the long hallway to the main [facility] Lobby. The Surgical Waiting Room will be on your Right. Proceed to check in and give them your Name. Directions to Surgical Suite from the Parking Garage Enter the [facility] lobby and proceed down the reed to the left. At the end of the reed, turn right. Continue down the long hallway to the main [facility] Lobby. The Surgical Waiting Room will be on your Right. Proceed to check in and give them your Name. THANK YOU FOR CHOOSING [facility]! PRE-OP PATIENT INFORMATION AND EDUCATION: MEDICATION INSTRUCTIONS: [...] deodorants after bathing. No hairspray, or nail chinese on fingers or toes. Day of surgery/procedure [...] name and bring to hospital. -An escort sulky driver is required if you are being discharged [...] taxi home, you must have your responsible libertarian accompany you in the taxi ride home at the time of discharge. OR times subject to change. Please check voicemail messages the day/evening before your surgery forany updates. documented in this encounter Plan of Treatment Upcoming Encounters Date Type Department Care Team (Latest Contact Info) Description 11/17/2024 9:07 AM EST Hospital Encounter [place] [facility] [facility] [facility] [address] [place] [address] [phone] Lee Gomez MD [address] [place] [address] 11/17/2024 9:07 AM EST Anesthesia Event [facility] [address] [place] [address] Jeny Lozada RN 11/17/2024 9:07 AM EST - 11/17/2024 1:28 PM EST Surgery [facility] [address] [place] [address] [phone] Lee Gomez MD [address] [place] [address] ROBOTIC THORACOSCOPY W/ WEDGE RESECTION, INITIAL 01/28/2025 10:20 AM EDT Office Visit Family [address] [place] [phone] Rafael Ochoa [address] [place] [address] 02/15/2025 10:40 AM EDT Office Visit [facility]rology [facility] [place] [address] [place] [address] Corey Smiley MD [address] [facility] [address] 09/02/2025 10:00 AM EST Office Visit Family Medicine [address] [phone] Marge Leal MD [address] [place] [address] [place] [address] Scheduled Procedures Name Priority Associated Diagnoses Date/Ti tn ROBOTIC THORACOSCOPY W/ E RESECTION, INITIAL Nodule [...] Additional history exists CKD PHOS USE SMARTSET 12787 04/13/202503/29, 12/25/2022, 09/03/2021, Additional history exists GFR 04/28/2025 10/29/2024, 03/29, 08/22/2023, Additional history exists CKD HGB USE SMARTSET 95681 10/29/202510/29, 10/29/2024, 10/10/2023, Additional history exists O2 ASSESSMENT COMPLETED IN PAST YEAR FOR COPD 10/29/2025 10/29/2024 Colonoscopy 10/07/2026 10/07/2023, /0 05/2024, 07/25/2023, Additional history exists Colorectal Cancer Screening 10/07/2026 DTap/Tdap Vaccines (3 - Td or Tdap) 09/20/2029 09/20/2019, 01/23/2009 Pneumococcal Vaccine: 50+ Years Completed 07/27/2018, 09/24/2016, 01/23/2009 VITAMIN D LEVEL ONCE IN A LIFETIME-USE SMARTSET# 21227 Completed 06/27/2023, 03/01/2019, 03/26/2017, Additional history exists [...] this encounter Medical Devices Implanted Type Area Pharmacist Critical Care Device Identifier Shelf Expiration Date Model / Serial / Lot Graft Allomax 1.0 6x16cm - [id number] - [id number] Implanted:Qty: 1 on 07/03/2015 by Jere Souza MD at [place] [facility] Right: Breast CR BARD : DAVOL 08/28/2019 [id number] / [id number] / [id number] Graft Allomax 1.0 6x16cm - [id number] - [id number] Implanted:Qty: 1 on 07/03/2015 by Jere Souza MD at [place] [facility] Left: Breast CR BARD : DAVOL 04/28/2017 [id number] / [id number] / [id number] Implant Breast Li+ 350-2251bc - [id number] Implanted:Qty: 1 on 12/28/2015 by Jere Souza MD at [place] [facility] Left: Breast MENTOR DANYELLE 03/28/2016 [id number] / / [id number] Implant Breast Li+ 350-2251bc - [id number] Implanted:Qty: 1 on 12/28/2015 by Jere Souza MD at [place] [facility] Right: Breast MENTOR DANYELLE 03/28/2016 [id number] / / [id number] documented as of this encounter Procedures Procedure Name Priority Date/Time Associated Diagnosis Comments HC ECG TRACING ONLY Routine 10/29/2024 1 :50 PM EST Nodule of upper lobe of left lung documented in this encounter Results * EKG (10/29/2024 1:50 PM EST) 10/29/2024 1:50 PM EST Narrative Procedure Note Yessenia Harkins MD - 10/29/2024 1:50 PM EST REASON FOR STUDY: PRE OP CONCLUSIONS: Normal sinus rhythm Normal ECG When compared with ECG of 14-Jul-2019 12:22, No significant change was found Ventricular Rate: 74 Atrial Rate: 74 FL Interval: 170 QRS Duration: 84 QT/QTc: 416/461 ms P-R-T [place]: 59 : -7 : 49 degrees us Lee Gomez MD EKG Final Resul t [facility] CARDIOLOGY documented in this encounter Visit Diagnoses Diagnosis [...] Directives occurred with: Not Discussed Care Teams Milk Route Deliverer Relationship Specialty Start Date End Date Marge Leal MD [address] [place] [address] [place] [phone] PCP - General Family Medicine 04/13/24 documented as of this encounter
--- OUTSIDE RECORDS SUMMARY | 2025-01-12 18:05 | External Medical Summary | Summary of Care ---
Author Name Unknown Organization [facility] Address [address] [place] [address] Phone [phone] Care Team Providers Care Occup Therapist Name Role Phone Marge Leal MD Primary Care Provide r Encounter Details Date Type Department Care Team (Late st Contact Info) Description 10/28/2024 Documentation Hematology Oncology [facility], [place] [address] [place] [address] [place], [facility] Office Hem Onc [address] [place], [place] [phone] Allergies Active Allergy Reactions Criticality Noted Date Comments Varenicline Neuro complications (Please comment) Low 08/23/2019 Vivid nightmares Lisinopril Edema face/lips/tongue High 03/29/2014 Metoprolol Tartrate Other (Please comment) Medium 08/0 05/2019 Facial swelling, airway closing up documented as of this encounter (statuses as of 10/28/2024) Medications aspirin 81 MG chewable tabletIndications :IN EVENING Take 1 Tablet by mouth in the morning. with food.. 100 Tab 5 9 Active Zoster Vac Recomb Adjuvanted 50 MCG/0.5ML Intramuscular Suspension Reconstituted (Shingrix)Indicat ions:Need for vaccination for zoster Inject 0.5 mL into a large muscle now and repeat dose in 60 to 180 days 1 Each 1 0 Active Additional Information Patient not taking.Reported on 07/22/2023 Vitamin D3 10 MCG (400 UNIT) Oral [...] as of this encounter (statuses as of 10/28/2024) Active Problems Problem Noted Date Diagnosed Date [...] as of this encounter (statuses as of 10/28/2024) Resolved Problems Problem Noted Date Diagnosed Date [...] as of this encounter (statuses as of 10/28/2024) Immunizations Name Administration Dates Next Due Pneumococcal [...] as of this encounter Miscellaneous Notes * Research Note - Alysha Moran RN - 10/28/2024 12:40 PM EST At the request of Lung [facility], this patient has been screened for possible clinical trials options fortheir diagnosis. There is not enough information at this time to screen this patient for possible clinical trial options. We would need updated biopsy with diagnosis to fully screen. Will also need to know if patientwill be getting treated in [place]. Will continue to monitor for possible clinical trials. Patient screened by Alysha Moran RN, BSN,CRC II Oncology Clinical Research Coordinator II [facility] Department of Hematology-Oncology Research [facility] [phone] documented in this encounter Plan of Treatment Upcoming Encounters Date Type Department Care Team (Late st Contact Info) Description 10/29/2024 1:00 PM EST [facility] [address] [place] [address] [facility], [facility] [address] [place] [address] 11/17/2024 Hospital Encounter OR [facility], OPERATING ROOM [facility], [facility] [address] [facility] [place] [phone] Lee Gomez MD [address] [place] [id number] 01/28/2025 10:20 AM EDT Office Visit [address] [phone] Rafael Ochoa CRNP [address] [place] [address] [place] [phone] 02/15/2025 10:40 AM EDT Office Visit Neurology [facility] [address] [facility] [place] [address] Corey Smiley MD [address] [place], [place] [phone] 09/02/2025 10:00 AM EST Office Visit Family Medicine [address] [phone] Marge Leal MD [address] [place] [address] [place] [phone] Scheduled Procedures Name Priority Associated Diagnoses Date/Ti me ROBOTIC THORACOSCOPY W/ FRIG E RESECTION, INITIAL Nodule of upper lobe of left lung ROBOTIC THORACOSCOPY WITH LYMPHADENECTOMY Nodule of upper lobe of left lung COLONOSCOPY FLEXIBLE PROXIMA L DIAGNOSTIC Recall Constipation, unspecified constipation type Health Maintenance Due Date Last Done Comments DISCUSS TOBACCO CESSATION (REFER TO SMARTSET #3293) 1950 Alpha-1 Antitrypsin 1969 Cologuard 1996 Fecal [...] Additional history exists CKD HGB USE SMARTSET 22595 10/10/202410/10, 10/10/2023, 08/22/2023, Additional history exists GFR 10/14/2024 04/13/2024, 07/31, 06/27/2023, Additional history exists Albumin/Creatinine Ratio 04/13/2025 024, 12/25/2022, 09/03/2021, Additional history exists CKD PHOS USE SMARTSET 07564 04/13/2025 07/02/2024, 12/25/2022, 09/03/2021, Additional history exists O2 ASSESSMENT COMPLETED IN PAST YEAR FOR COPD 10/28/2025 10/28/2024 Colonoscopy 10/07/2026 10/07/2023, 01/0 05/2024, 07/25/2023, Additional history exists Colorectal Cancer Screening 10/07/2026 DTap/Tdap Vaccines (3 - Td or Tdap) 09/20/2029 09/20/2019, 01/23/2009 Pneumococcal Vaccine: 50+ Years Completed 07/27/2018, 09/24/2016, 01/23/2009 VITAMIN D LEVEL ONCE IN A LIFETIME-USE SMARTSET# [id number] Completed 06/27/2023, 03/01/2019, 03/26/2017, Additional history exists [...] this encounter Medical Devices Implanted Type Area Gsa Coordinator Device Identifier Shelf Expiration Date Model / Serial / Lot Graft Allomax 1.0 6x16cm - [id number] - [id number] Implanted:Qty: 1 on 07/03/2015 by Jere Souza MD at [place] [facility] Right: Breast CR BARD : DAVOL 08/28/2019 [id number] / [id number] / [id number] Graft Allomax 1.0 6x16cm - [id number] - [id number] Implanted:Qty: 1 on 07/03/2015 by Jere Souza MD at OR [facility] Left: Breast CR BARD : DAVOL 04/28/2017 [id number] / [id number] / [id number] Implant Breast Li+ 350-2251bc - [id number] Implanted:Qty: 1 on 12/28/2015 by Jere Souza MD at [facility] Left: Breast MENTOR DANYELLE 03/28/2016 350-2251BC / / [id number] Implant Breast Li+ 350-2251bc - [id number] Implanted:Qty: 1 on 12/28/2015 by Jere Souza MD at [facility] Right: Breast MENTOR DANYELLE 03/28/2016 [id number] / / [id number] documented as of this encounter Advance Directives [...] Directives occurred with: Not Discussed Care Teams Occup Therapist Relationship Specialty Start Date End Date Marge Leal MD [address] [place] [address] [place] [phone] PCP - General Family Medicine 04/13/24 documented as of this encounter
--- OUTSIDE RECORDS SUMMARY | 2025-01-12 18:05 | External Medical Summary | Summary of Care ---
Author Name Unknown Organization [facility] Address [address] [facility] [place] [address] Phone [phone] Care Team Providers Care Endodontic Assistant Name Role Phone Marge Leal MD Primary Care Provide r Reason for Visit * Reason Comments Outpatient Testing Encounter Details Date Type Department Care Team (Late st Contact Info) Description 10/29/2024 2:10 PM EST Laboratory Laboratory, [facility] [address] [place] [phone] [facility], Lab [address] [place], [place] [phone] [employer] Other*[id number]; Nodule of upper lobe of left lung [...] 11/17/2024 8:15 AM EST Hospital Encounter OR [facility], OPERATING ROOM [facility] [address] [place] [phone] Lee Gomez MD [address] [place], [place] [phone] 11/17/2024 8:15 AM EST Anesthesia Event OR [facility], OPERATING ROOM [facility] [address] [place] [phone] Jeny Lozada RN 11/17/2024 8:15 AM EST - 11/17/2024 12:36 PM EST Surgery OR [facility], OPERATING ROOM [facility] [address] [place] [phone] Lee Gomez MD [address] [place] [address] ROBOTIC THORACOSCOPY W/ WEDGE RESECTION, INITIAL 01/28/2025 10:20 AM EDT Office Visit Family Medicine [address] [place] [phone] Rafael Ochoa CRNP [address] [place] [address] [place] [phone] 02/15/2025 10:40 AM EDT Office Visit Neurology Nancie Desirae [address] [place] [phone] Corey Smiley MD [address] [place] [address] 09/02/2025 10:00 AM EST Office Visit Family [address] [place] [address] Marge Leal MD [address] [place] [address] [place] [phone] Pending Results Name Type Priority Associated Diagnoses Date /Time MYCODE INITIAL ADULT Lab Routine MyCode Research Other*[id number] 10/29/2024 1:00 PM EST BASIC METABOLIC PANEL Lab Routine Nodule of upper lobe of left lung 10/29/2024 1:00 PM EST CBC WITH WBC DIFFERENTIAL AND ANEMIA REFLEX WORKUP Lab Routine Nodule of upper lobe of left lung 10/29/2024 1:00 PM EST TYPE AND SCREEN Lab Routine Nodule of upper lobe of left lung 10/29/2024 1:00 PM EST MYCODE INITIAL ADULT-PINK Lab Routine [employer] Research Other*[id number] 10/29/2024 1:00 PM EST MYCODE SST1 Lab Routine [employer] Other*[id number] 10/29/2024 1:00 PM EST MYCODE SST2 Lab Routine [employer] Other*[id number] 10/29/2024 1:00 PM EST ANEMIA CBC Lab Routine Nodule of upper lobe of left lung 10/29/2024 1:00 PM EST DIFFERENTIAL, AUTOMATED Lab Routine Nodule of upper lobe of left lung 10/29/2024 1:00 PM EST ANEMIA REFLEX CHEMISTRY HOLD Lab Routine Nodule of upper lobe of left lung 10/29/2024 1:00 PM EST Scheduled Procedures Name Priority Associated Diagnoses [...] Comments DISCUSS TOBACCO CESSATION (REFER TO SMARTSET #1239) 1950 Alpha-1 Antitrypsin 1969 Cologuard 1996 Fecal [...] Additional history exists CKD HGB USE SMARTSET 84383 10/10/202410/10, 10/10/2023, 08/22/2023, Additional history exists GFR 10/14/2024 04/13/2024, 07/31, 06/27/2023, Additional history exists Albumin/Creatinine Ratio 04/13/2025 024, 12/25/2022, 09/03/2021, Additional history exists CKD PHOS USE SMARTSET 07263 04/13/202503/29, 12/25/2022, 09/03/2021, Additional history exists O2 ASSESSMENT COMPLETED IN PAST YEAR FOR COPD 10/29/2025 10/29/2024 Colonoscopy 10/07/2026 10/07/2023, 05/2024, 07/25/2023, Additional history exists Colorectal Cancer Screening 10/07/2026 DTap/Tdap Vaccines (3 - Td or Tdap) 09/20/2029 09/20/2019, 01/23/2009 Pneumococcal Vaccine: 50+ Years Completed 07/27/2018, 09/24/2016, 01/23/2009 VITAMIN D LEVEL ONCE IN A LIFETIME-USE SMARTSET# 17733 Completed 06/27/2023, 03/01/2019, 03/26/2017, Additional history exists [...] this encounter Medical Devices Implanted Type Area Learning Consultant Device Identifier Shelf Expiration Date Model / Serial / Lot Graft Allomax 1.0 6x16cm - [id number] - [id number] Implanted:Qty: 1 on 07/03/2015 by Jere Souza MD at OR [facility] Right: Breast CR BARD : DAVOL 08/28/2019 [id number] / [id number] / [id number] Graft Allomax 1.0 6x16cm - [id number] - [id number] Implanted:Qty: 1 on 07/03/2015 by Jere Souza MD at OR [facility] Left: Breast CR BARD : DAVOL 04/28/2017 [id number] / [id number] / [id number] Implant Breast Li+ 350-2251bc - [id number] Implanted:Qty: 1 on 12/28/2015 by Jere Souza MD at OR [facility] Left: Breast MENTOR DANYELLE 03/28/2016 350-2251BC / / [id number] Implant Breast Li+ 350-2251bc - [id number] Implanted:Qty: 1 on 12/28/2015 by Jere Souza MD at OR [facility] Right: Breast MENTOR DANYELLE 03/28/2016 350-2251BC / / [id number] documented as of this encounter Visit Diagnoses Diagnosis Nodule of upper lobe of left lung- Primary MyCode Research Other*[id number] Nodule of upper lobe of left lung [...] Directives occurred with: Not Discussed Care Teams Endodontic Assistant Relationship Specialty Start Date End Date Marge Leal MD [address] [place] [address] [place] [phone] PCP - General Family Medicine 04/13/24 documented as of this encounter
--- OUTSIDE RECORDS SUMMARY | 2025-01-12 18:05 | External Medical Summary ---
Author Name Unknown Address Unknown Organization K01:LABORATORY [facility] - [address] [place] [address] Laboratory Report Ordering Provider Test Date Status MICHELLE ROSARIO 10/29/2024 13:00:18 Final Observation Date Value Abnormality Reference (Units ) Status MYCODE SPECIMEN-SST 10/29/2024 13:00:18 Freezing of extracted DNA, whole blood and/or serum. Final Performing Location LABORATORY C - [address] [place] [address]
--- OUTSIDE RECORDS SUMMARY | 2025-01-12 18:05 | External Medical Summary ---
Author Name Unknown Address Unknown Organization K01:[facility] - [address] [place] [address] Laboratory Report Ordering Provider Test Date Status PRADIP ALVARES 11/01/2024 10:29:46 Final Observation Date Value Abnormality Reference (Units ) Status ABO 11/01/2024 10:29:46 O Final RH 11/01/2024 10:29:46 Negative Final Performing Location LAB[facility] - [address] [place] [address]
--- OUTSIDE RECORDS SUMMARY | 2025-01-12 18:05 | External Medical Summary | Summary of Care ---
Author Name Unknown Organization [facility] Address [address] [place] [address] Phone [phone] Care Team Providers Care Group Home Paraprofessional Name Role Phone Marge Leal MD Primary Care Provide r Reason for Visit * Reason Comments Outpatient Testing Encounter Details Date Type Department Care Team (Late st Contact Info) Description 10/29/2024 2:10 PM EST Laboratory Laboratory, [facility] [address] [place] [phone] [facility], Lab [address] [place], [place] [phone] [employer] Other*[id number]; Nodule of upper lobe of left lung Allergies Active Allergy Reactions Criticality Noted Date Comments Varenicline Neuro complications (Please comment) Low 08/23/2019 Vivid nightmares Lisinopril Edema face/lips/tongue High 03/29/2014 Metoprolol Tartrate Edema face/lips/tongue,Other (Please comment) High 05/07/2019 Facial swelling, airway closing up documented as of this encounter (statuses as of 10/30/2024) Medications aspirin 81 MG chewable tabletIndications: IN [...] as of this encounter (statuses as of 10/30/2024) Active Problems Problem Noted Date Diagnosed Date [...] as of this encounter (statuses as of 10/30/2024) Resolved Problems Problem Noted Date Diagnosed Date [...] as of this encounter (statuses as of 10/30/2024) Immunizations Name Administration Dates Next Due Pneumococcal [...] 11/17/2024 8:15 AM EST Hospital Encounter [place] [facility] [address] [place] [phone] Lee Gomez MD [address] [place], [place] [phone] 11/17/2024 8:15 AM EST Anesthesia Event [place] [facility] [address] [place] [phone] Jeny Lozada RN 11/17/2024 8:15 AM EST - 11/17/2024 12:36 PM EST Surgery [facility] [address] [place] [phone] Lee Gomez MD [address] [place] [address] ROBOTIC THORACOSCOPY W/ WEDGE RESECTION, INITIAL 01/28/2025 10:20 AM EDT Office Visit Family Medicine [address] [place] [phone] Rafael Ochoa CRNP [address] [place] [address] [place] [phone] 02/15/2025 10:40 AM EDT Office Visit Neurology Nancie Desirae [address] [place] [phone] Corey Smiley MD [address] [place] [address] 09/02/2025 10:00 AM EST Office Visit [address] [place] [phone] Marge Leal MD [address] [place] [address] [place] [phone] Pending Results Name Type Priority Associated Diagnoses Date /Time MYCODE INITIAL ADULT Lab Routine MyCode Research Other*[id number] 10/29/2024 1:00 PM EST MYCODE INITIAL ADULT-PINK Lab Routine [employer] Research Other*[id number] 10/29/2024 1:00 PM EST MYCODE SST1 Lab Routine [employer] Other*[id number] 10/29/2024 1:00 PM EST MYCODE SST2 Lab Routine My[employer] Research Other*[id number] 10/29/2024 1:00 PM EST Scheduled Procedures Name [...] Additional history exists CKD PHOS USE SMARTSET 14642 04/13/202503/29, 12/25/2022, 09/03/2021, Additional history exists GFR 04/28/2025 10/29/2024, 03/29, 08/22/2023, Additional history exists CKD HGB USE SMARTSET 40999 10/29/202510/29, 10/29/2024, 10/10/2023, Additional history exists O2 ASSESSMENT COMPLETED IN PAST YEAR FOR COPD 10/29/2025 10/29/2024 Colonoscopy 10/07/2026 10/07/2023, 05/2024, 07/25/2023, Additional history exists Colorectal Cancer Screening 10/07/2026 DTap/Tdap Vaccines (3 - Td or Tdap) 09/20/2029 09/20/2019, 01/23/2009 Pneumococcal Vaccine: 50+ Years Completed 07/27/2018, 09/24/2016, 01/23/2009 VITAMIN D LEVEL ONCE IN A LIFETIME-USE SMARTSET# 54187 Completed 06/27/2023, 03/01/2019, 03/26/2017, Additional history exists [...] this encounter Medical Devices Implanted Type Area Turn Machine Operator Device Identifier Shelf Expiration Date Model / Serial / Lot Graft Allomax 1.0 6x16cm - [id number] - [id number] Implanted:Qty: 1 on 07/03/2015 by Jere Souza MD [place] [facility] Right: Breast CR BARD : DAVOL 08/28/2019 [id number] / [id number] / [id number] Graft Allomax 1.0 6x16cm - [id number] - [id number] Implanted:Qty: 1 on 07/03/2015 by Jere Souza MD at [place] [facility] Left: Breast CR BARD : DAVOL 04/28/2017 [id number] / [id number] / [id number] Implant Breast Li+ 350-2251bc - [id number] Implanted:Qty: 1 on 12/28/2015 by Jere Souza MD at [place] [facility] Left: Breast MENTOR DANYELLE 03/28/2016 350-2251BC / / [id number] Implant Breast Li+ 350-2251bc - [id number] Implanted:Qty: 1 on 12/28/2015 by Jere Souza MD at [place] [facility] Right: Breast MENTOR DANYELLE 03/28/2016 [id number] / / [id number] documented as of this encounter Procedures Procedure Name Priority Date/Time Associated Diagnosis Comments ANEMIA REFLEX CHEMISTRY HOLD Routine 10/29/2024 1:00 PM EST Nodule of upper lobe of left lung ANEMIA CBC Routine 10/29/2024 1:00 PM EST Nodule of upper lobe of left lung DIFFERENTIAL, AUTOMATED Routine 10/29/2024 1:00 PM EST Nodule of upper lobe of left lung DIFFERENTIAL, AUTOMATED Routine 10/29/2024 1:00 PM EST Nodule of upper lobe of left lung BASIC METABOLIC PANEL Routine 10/29/2024 1:00 PM EST Nodule of upper lobe of left lung TYPE AND SCREEN Routine 10/29/2024 1:00 PM EST Nodule of upper lobe of left lung documented in this encounter Results * ANEMIA REFLEX CHEMISTRY HOLD (10/29/2024 1:00 PM EST) Blood Venous blood specimen / Unknown Venipuncture / Unknown 10/29/2024 1:00 PM EST 10/29/2024 1:00 PM EST Lee Gomez MD LAB BLOOD ORDERABLES Final Result [facility] [address] [place] [address] * (ABNORMAL) DIFFERENTIAL, AUTOMATED (10/29/2024 1:00 PM EST) WBC 3.76(L) 4.00 - 10.80 K/uL 10/29/2024 8:20 PM EST [facility] Neutrophils % 49.2 40.0 - 75.0 % 10/29/2024 8:20 PM EST [facility] Lymphocytes % 36.7 18.0 - 42.0 % 10/29/2024 8:20 PM EST [facility] Monocytes % 9.3 1.0 - 11.0 % 10/29/2024 8:20 PM EST [facility] Eosinophils % 4.0 0.0 - 6.0 % 10/29/2024 8:20 PM EST [facility] Basophils % 0.5 0.0 - 2.0 % 10/29/2024 8:20 PM EST LAB[facility] Immature Granulocytes % 0.3 0.0 - 2.0 % 10/29/2024 8:20 PM EST [facility] Absolute Neutrophils 1.85 1.80 - 7.70 K/uL 10/29/2024 8:20 PM EST LAB[facility] Absolute Lymphocytes 1.38 1.00 - 4.80 K/ul 10/29/2024 8:20 PM EST [facility] Absolute Monocytes 0.35 0.00 - 1.10 K/uL 10/29/2024 8:20 PM EST [facility] Absolute Eosinophils 0.15 0.00 - 0.70 K/uL 10/29/2024 8:20 PM EST [facility] Absolute Basophils 0.02 0.00 - 0.20 K/uL 10/29/2024 8:20 PM EST LAB[facility] Absolute Immature Granulocytes 0.01 0.00 - 0.20 K/uL 10/29/2024 8:20 PM EST [facility] Blood Venous blood specimen / Unknown Venipuncture / Unknown 10/29/2024 1:00 PM EST 10/29/2024 1:00 PM EST Lee Gomez MD LAB BLOOD ORDERABLES Final Result [facility] [address] [place] [address] * (ABNORMAL) ANEMIA CBC (10/29/2024 1:00 PM EST) WBC 3.76(L) 4.00 - 10.80 K/uL 10/29/2024 8:20 PM EST [facility] RBC 4.54 3.85 - 5.15 M/uL 10/29/2024 8:20 PM EST [facility] HGB 12.2 12.0 - 15.3 g/dL 10/29/2024 8:20 PM EST [facility] Comment: Anemia reflex testing triggers on a HGB < 12.0 for Females and HGB < 13.0 for Males in accordance with the WHO Anemia Guidelines Anemia reflex testing triggers on a HGB < 12.0 for Females and HGB < 13.0 for Males in accordance with the WHO Anemia Guidelines HCT 38.9 36.0 - 45.2 % 10/29/2024 8:20 PM EST [facility] MCV 85.7 81.5 - 97.5 fL 10/29/2024 8:20 PM EST [facility] MCH 26.9 27.0 - 34.0 pg 10/29/2024 8:20 PM EST [facility] MCHC 31.4 32.0 - 36.0 g/dL 10/29/2024 8:20 PM EST [facility] RDW 14.5 11.5 - 15.5 % 10/29/2024 8:20 PM EST [facility] PLT 258 140 - 400 K/uL 10/29/2024 8:20 PM EST [facility] MPV 10.5 6.6 - 11.1 fL 10/29/2024 8:20 PM EST [facility] nRBCs 0 <=0 /100 WBCs 10/29/2024 8:20 PM EST [facility] Blood Venous blood specimen / Unknown Venipuncture / Unknown 10/29/2024 1:00 PM EST 10/29/2024 1:00 PM EST Lee Gomez MD LAB BLOOD ORDERABLES Final Result [facility]ATORY [facility] [address] [place] [address] * TYPE AND SCREEN (10/29/2024 1:00 PM EST) Specimen Expiration Date 10/30/2024 1:41 PM EST LABORATORY [facility] Blood Venous blood specimen / Unknown Venipuncture / Unknown 10/29/2024 1:00 PM EST 10/29/2024 1:00 PM EST Narrative LABORATORY [facility]OD [facility] - 10/30/2024 1:41 PM EST Test Canceled for reorder purposes. us Lee Gomez MD LAB BLOOD BANK TEST ORDERAB LES Final Result Performing Organization Address [facility] de Phone Number LABORATORY [facility]OD [facility] [address] [place] [address] * BASIC METABOLIC PANEL (10/29/2024 1:00 PM EST) BUN 17 6 - 20 mg/dL 10/29/2024 9:24 PM EST LABORATORY [facility] CREATININE 1.0 0.5 - 1.0 mg/dL 10/29/2024 9:24 PM EST LABORATORY [facility] EGFR 62 >=60 mL/min 10/29/2024 9:24 PM EST LABORATORY [facility] Comment:eGFR is calculated b ased on the [...] 15 mmol/L 10/29/2024 9:24 PM EST LABORATORY C GLUCOSE 99 70 - 120 mg/dL 10/29/2024 9:24 PM EST [facility] CALCIUM 9.5 8.4 - 10.2 mg/dL 10/29/2024 9:24 PM EST LAB[facility]ATORY [facility] Blood Venous blood specimen / Unknown Venipuncture / Unknown 10/29/2024 1:00 PM EST 10/29/2024 1:00 PM EST us Lee Gomez MD LAB BLOOD ORDERABLES Final Result LABORATORY [facility] [address] [place] [address] documented in this encounter Visit Diagnoses Diagnosis Nodule of upper lobe of left lung- Primary My[employer] Other*[id number] Nodule of upper lobe of left lung [...] Directives occurred with: Not Discussed Care Teams Group Home Paraprofessional Relationship Specialty Start Date End Date Marge Leal MD [address] [place] [address] [place] [phone] PCP - General Family Medicine 04/13/24 documented as of this encounter
--- OUTSIDE RECORDS SUMMARY | 2025-01-12 18:05 | External Medical Summary ---
Author Name Unknown Address Unknown Organization K01:LABORATORY [facility] - [address] [place] [address] Laboratory Report Ordering Provider Test Date Status MICHELLE ROSARIO 10/29/2024 13:00:18 Final Observation Date Value Abnormality Reference (Units ) Status [employer] SPECIMEN-LAV 10/29/2024 13:00:18 Freezing of extracted DNA, whole blood and/or serum. Final Performing Location LABORATORY C - [address] [place] [address]
--- OUTSIDE RECORDS SUMMARY | 2025-01-12 18:05 | External Medical Summary ---
Author Name Unknown Address Unknown Organization K01:[facility] [place] [facility] [place] [address] Laboratory Report Ordering Provider Test Date Status PRADIP ALVARES 10/29/2024 13:00:18 Final Observation Date Value Abnormality Reference (Units ) Status WBC, Total 10/29/2024 13:00:18 3.76 Below low normal 4. 00-10.80 (K/uL) Final RBC 10/29/2024 13:00:18 4.54 3.85-5.15 (M/uL) Final Hemoglobin 10/29/2024 13:00:18 12.2 12.0-15.3 (g/dL) Final Anemia reflex testing trigge rs on a HGB < 12.0 for Females and HGB < 13.0 for Males in accordance with the WHO Anemia Guidelines
Anemia reflex testing triggers on a HGB < 12.0 for Females and HGB < 13.0 for Males in accordance with the WHO Anemia Guidelines HCT 10/29/2024 13:00:18 38.9 36.0-45.2 (%) Final MCV 10/29/2024 13:00:18 85.7 81.5-97.5 (fL) Final MCH 10/29/2024 13:00:18 26.9 27.0-34.0 (pg) Final MCHC 10/29/2024 13:00:18 31.4 32.0-36.0 (g/dL) Final RDW 10/29/2024 13:00:18 14.5 11.5-15.5 (%) Final Platelets 10/29/2024 13:00:18 258 140-400 (K /uL) Final MPV 10/29/2024 13:00:18 10.5 6.6-11.1 ( fL) Final Nucleated erythrocytes/100 leukocytes [Ratio] in Blood by Automated count 10/29/2024 13:00:18 0 <=0 (/100 WBCs) Fi [facility] Performing Location LAB[facility]ORY [facility] - [address] [facility] [address]
--- OUTSIDE RECORDS SUMMARY | 2025-01-12 18:05 | External Medical Summary | Summary of Care ---
Author Name Unknown Organization [facility] Address [address] [place] [address] Phone [phone] Care Team Providers Care Roll Grinder Operator Name Role Phone Marge Leal MD Primary Care Provide r Reason for Visit * Reason Onset Date Comments Appointment 10/22/2024 [facility] Encounter Details Date Type Department Care Team (Late st Contact Info) Description 10/22/2024 Telephone Thoracic Surg [facility] [address], [place] [id number] Radha Horner, RN Appointment ([facility]) Allergies Active Allergy Reactions Criticality Noted Date Comments Varenicline Other (Please comment) 08/23/2019 Vivid nightmares Lisinopril Edema face/lips/tongue High 03/29/2014 Metoprolol Tartrate 05/07/2019 Facial swelling, airway closing up documented as of this encounter (statuses as of 10/22/2024) Medications aspirin 81 MG chewable tabletIndications :IN [...] as of this encounter (statuses as of 10/22/2024) Active Problems Problem Noted Date Diagnosed Date [...] as of this encounter (statuses as of 10/22/2024) Resolved Problems Problem Noted Date Diagnosed Date [...] as of this encounter (statuses as of 10/22/2024) Immunizations Name Administration Dates Next Due Pneumococcal [...] Telephone Encounter - Radha Horner RN - 10/22/2024 11:22 AM EST Called Joanie regarding her PFTs that she had done yesterday 10/21/24. I explained to her that they are not bad and that she should meet with both the surgeon and rad/onc. I did give her the option of doing a telemedicine visit with Dr Gomez and then rad.onc closer to home or coming to [place] for [facility] appt where she can meet both doctors at same appt. She preferred the latter. I offered her next T donald 10/28/24 2pm, directions to clinic provided. I also provided her my call back number as well. She verbalized understanding and thanked me for the call. Radha Horner RN MSN [facility] Thoracic Surgery Nurse Navigator [facility] documented in this encounter Plan of Treatment Upcoming Encounters Date Type Department Care Team (Late st Contact Info) Description 10/28/2024 2:00 PM EST Office Visit Thoracic Surg [facility] [address] [place] [address] Cl, Lung And Esophageal Cancer [address] [place] [address] 01/28/2025 10:20 AM EDT Office Visit Family Medicine [address] [place] [phone] Rafael Ochoa CRNP [address] [place] [address] [place] [address] 02/15/2025 10:40 AM EDT Office Visit Neurology Nancie Desirae [address] [place] [address] Corey Smiley MD [address] [place] [address] 09/02/2025 10:00 AM EST Office Visit Family Medicine [address] [phone] Marge Leal MD [address] [place] [address] [place], [place] [id number] Scheduled Procedures Name Priority Associated Diagnoses Date/Ti [...] Additional history exists CKD HGB USE SMARTSET 46035 10/10/202410/10, 10/10/2023, 08/22/2023, Additional history exists GFR 10/14/2024 04/13/2024, 07/31, 06/27/2023, Additional history exists Albumin/Creatinine Ratio 04/13/2025 024, 12/25/2022, 09/03/2021, Additional history exists CKD PHOS USE SMARTSET 31958 04/13/202503/29, 12/25/2022, 09/03/2021, Additional history exists O2 ASSESSMENT COMPLETED IN PAST YEAR FOR COPD 07/27/2025 07/27/2024 Colonoscopy 10/07/2026 10/07/2023, 05/2024, 07/25/2023, Additional history exists Colorectal Cancer Screening 10/07/2026 DTap/Tdap Vaccines (3 - Td or Tdap) 09/20/2029 09/20/2019, 01/23/2009 Pneumococcal Vaccine: 50+ Years Completed 07/27/2018, 09/24/2016, 01/23/2009 VITAMIN D LEVEL ONCE IN A LIFETIME-USE SMARTSET# 29226 Completed 06/27/2023, 03/01/2019, 03/26/2017, Additional history exists [...] this encounter Medical Devices Implanted Type Area Floatman Device Identifier Shelf Expiration Date Model / Serial / Lot Graft Allomax 1.0 6x16cm - [id number] - [id number] Implanted:Qty: 1 on 07/03/2015 [place] [facility] [place] Breast CR BARD : DAVOL 08/28/2019 [id number] / [id number] / [id number] Graft Allomax 1.0 6x16cm - [id number] - [id number] Implanted:Qty: 1 on 07/03/2015 [place] Je[place] [facility] [place] Breast CR BARD : DAVOL 04/28/2017 [id number] / [id number] / [id number] Implant Breast Li+ 350-2251bc - [id number] Implanted:Qty: 1 on 12/28/2015 [place] Je[place] [facility] [place] Breast MENTOR DANYELLE 03/28/2016 [id number] / / [id number] Implant Breast Li+ 350-2251bc - [id number] Implanted:Qty: 1 on 12/28/2015 by Jere Souza MD at [facility] Right: Breast MENTOR DANYELLE 03/28/2016 [id number] / / [id number] documented as of this encounter Advance Directives [...] Directives occurred with: Not Discussed Care Teams Roll Grinder Operator Relationship Specialty Start Date End Date Marge Leal MD [address] [place] [address] [place] [address] PCP - General Family Medicine 04/13/24 documented as of this encounter
--- OUTSIDE RECORDS SUMMARY | 2025-01-12 18:06 | External Medical Summary | Summary of Care ---
Author Name Unknown Organization [facility] Address [address] [place] [address] Phone [phone] Care Team Providers Care Hourly Associate Name Role Phone Marge Leal MD Primary Care Provide r Reason for Referral * Evaluate & Treat - Unlimited Visits (Within 10 days (routine)) - Authorized Specialty Diagnoses / Procedures Referred By Contact Referred To Contact Thoracic and Cardiac Surgery / Cardiothoracic Surgery Diagnoses Pulmonary nodule Hanny Quigley CRNP [address] [place] [address] Phone: tel: fax: [facility] [address] [place] [address] Phone: tel:[phone] Referral ID Status Reason Start Date Expiration Date Visits Requested Visits Authorized [id number] Authorized Specialty Services Required 4 [phone] Question Answer Referral Priority Within 10 days (routine) Where should this appointment be scheduled? [facility]any Comments Active smoker, history of breast cancer with prior radiation treatment Slowly enlarging PET avid SAURAV 1 cm pulmonary nodule Not a great candidate for sampling per Dr. Barriga's opinion For discussion Encounter Details Date Type Department Care Team (Late st Contact Info) Description 09/21/2024 Orders Only [facility] [address] [facility] [place] [address] Hanny Quigley CRNP [address] [place] [address] Pulmonary nodule* Allergies Active Allergy Reactions Criticality Noted Date Comments Varenicline Other (Please comment) 08/23/2019 Vivid nightmares Lisinopril Edema face/lips/tongue High 03/29/2014 Metoprolol Tartrate 05/07/2019 Facial swelling, airway closing up documented as of this encounter (statuses as of 09/21/2024) Medications aspirin 81 MG chewable tabletIndications :IN [...] as of this encounter (statuses as of 09/21/2024) Active Problems Problem Noted Date Diagnosed Date Iron deficiency anemia 05/19/2020 Oxygen desaturation during sleep 02/17/2020 COPD, mild 01/25/2020 Decreased diffusion capacity of lung 01/25/2020 Mild tricuspid regurgitation 04/15/2019 Overview (04/15/2019): Echo 02/2019 Lung nodule 03/15/2019 Overview (03/15/2019): 6 x 7 mm nodule 03/15/19. Repeat in 6 months. 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 Anxiety 07/27/2018 Osteoporosis 10/25/2016 History of breast cancer 07/26/2015 HTN, goal below 140/90 01/10/2012 Tobacco use disorder 03/14/2006 Chronic rhinitis 03/14/2006 documented as of this encounter (statuses as of 09/21/2024) Resolved Problems Problem Noted Date Diagnosed Date [...] as of this encounter (statuses as of 09/21/2024) Immunizations Name Administration Dates Next Due Pneumococcal [...] AM EDT Office Visit Family Medicine [address] [phone] Rafael [address] [place] [address] 02/15/2025 10:40 AM EDT Office Visit Neurology [facility]es [facility] [place] [address] [facility] [place] [address] Corey Smiley MD [address] [place], [place] [phone] 09/02/2025 10:00 AM EST Office Visit Family Medicine [address] [phone] Marge Leal MD [address] [place] [address] [place] [address] Scheduled Procedures Name Priority Associated Diagnoses Date/Ti me COLONOSCOPY FLEXIBLE PROXIMA L DIAGNOSTIC Recall Constipation, unspecified constipation type Scheduled Referrals Name Type Priority Associated Diagnoses Orde r Schedule LUNG CANCER CLINIC REFERRAL OP Referral Within 10 days (routine) Pulmonary nodule Ordered: 09/21/2024 Health Maintenance Due Date Last Done Comments [...] 2024 08/15/2020, 07/07/2019, 07/27/2018, Additional history exists O2 ASSESSMENT COMPLETED IN PAST YEAR FOR COPD 10/07/2024 10/07/2023 CKD HGB USE SMARTSET 21184 10/10/202410/10, 10/10/2023, 08/22/2023, Additional history exists GFR 10/14/2024 04/13/2024, 07/31, 06/27/2023, Additional history exists Albumin/Creatinine Ratio 04/13/2025 024, 12/25/2022, 09/03/2021, Additional history exists CKD PHOS USE SMARTSET 56853 04/13/202503/29, 12/25/2022, 09/03/2021, Additional history exists Colonoscopy 10/07/2026 10/07/2023, 05/2024, 07/25/2023, Additional history exists Colorectal Cancer Screening 10/07/2026 DTap/Tdap Vaccines (3 - Td or Tdap) 09/20/2029 09/20/2019, 01/23/2009 Pneumococcal Vaccine: 65+ Years Completed 07/27/2018, 09/24/2016, 01/23/2009 VITAMIN D LEVEL ONCE IN A LIFETIME-USE SMARTSET# [id number] Completed 06/27/2023, 03/01/2019, 03/26/2017, Additional history exists [...] this encounter Medical Devices Implanted Type Area Bow Making Machine Operator Device Identifier Shelf Expiration Date Model / Serial / Lot Graft Allomax 1.0 6x16cm - [id number] - [id number] Implanted:Qty: 1 on 07/03/2015 by Jere Souza MD at [place] [facility] [place] Right: Breast CR BARD : DAVOL 08/28/2019 [id number] / [id number] / [id number] Graft Allomax 1.0 6x16cm - [id number] - [id number] Implanted:Qty: 1 on 07/03/2015 by Jere Souza MD at OR [facility] [place] Left: Breast CR BARD : DAVOL 04/28/2017 [id number] / [id number] / [id number] Implant Breast Li+ 350-2251bc - [id number] Implanted:Qty: 1 on 12/28/2015 by Jere Souza MD at OR [facility] [place] Left: Breast MENTOR DANYELLE 03/28/2016 [id number] / / [id number] Implant Breast Li+ 350-2251bc - [id number] Implanted:Qty: 1 on 12/28/2015 by Jere Souza MD at OR [facility] [place] Right: Breast MENTOR DANYELLE 03/28/2016 [id number] / / [id number] documented as of this encounter Visit Diagnoses Diagnosis Pulmonary nodule- Primary Solitary pulmonary nodule documented in this encounter [...] Directives occurred with: Not Discussed Care Teams Hourly Associate Relationship Specialty Start Date End Date Marge Leal MD [address] [place] [address] [place] [address] PCP - General Family Medicine 04/13/24 documented as of this encounter
--- OUTSIDE RECORDS SUMMARY | 2025-01-12 18:06 | External Medical Summary | Summary of Care ---
Author Name Unknown Organization [facility] Address [address] [place] [address] Phone [phone] Care Team Providers Care Route Aide Name Role Phone Marge Leal MD Primary Care Provide r Reason for Visit * Reason Comments Research Screening Encounter Details Date Type Department Care Team (Late st Contact Info) Description 09/30/2024 Documentation [facility] [place] [address] [place] [address] [place] Office Hem Onc [address] [place] [address] Allergies Active Allergy Reactions Criticality Noted Date Comments Varenicline Other (Please comment) 08/23/2019 Vivid nightmares Lisinopril Edema face/lips/tongue High 03/29/2014 Metoprolol Tartrate 05/07/2019 Facial swelling, airway closing up documented as of this encounter (statuses as of 09/30/2024) Medications aspirin 81 MG chewable tabletIndications :IN [...] as of this encounter (statuses as of 09/30/2024) Active Problems Problem Noted Date Diagnosed Date [...] as of this encounter (statuses as of 09/30/2024) Resolved Problems Problem Noted Date Diagnosed Date [...] as of this encounter (statuses as of 09/30/2024) Immunizations Name Administration Dates Next Due Pneumococcal [...] encounter Miscellaneous Notes * Research Note - Guadalupe Singer RN - 09/30/2024 10:43 AM EST At the request of Lung [facility], this patient has been screened for possible clinical trials options fortheir diagnosis. (There are no clinical trials available at this time for this patient. No clinical trials at [facility] Patient screened by Guadalupe Singer RN CRC II Oncology Clinical Research Coordinator II [facility] Department of Hem/Onc Research [facility] P: [phone] . documented in this encounter Plan of Treatment Upcoming Encounters Date Type Department Care Team (Late st Contact Info) Description 01/28/2025 10:20 AM EDT Office Visit Family Medicine [address] [phone] Rafael Ochoa [address] [place] [address] 02/15/2025 10:40 AM EDT Office Visit Neurology [address] [place] [address] Corey Smiley MD [address] [place], [place] [phone] 09/02/2025 10:00 AM EST Office Visit Family Medicine [address] [phone] Marge Leal MD [address] [place] [address] [place] [address] Scheduled Procedures Name Priority Associated Diagnoses Date/Ti me COLONOSCOPY FLEXIBLE PROXIMA L DIAGNOSTIC Recall Constipation, unspecified constipation type Health Maintenance Due Date Last Done Comments DISCUSS TOBACCO CESSATION (REFER TO SMARTSET #5773) 1950 Alpha-1 Antitrypsin 1969 Cologuard 1996 Fecal [...] COPD 10/07/2024 10/07/2023 CKD HGB USE SMARTSET 32769 10/10/202410/10, 10/10/2023, 08/22/2023, Additional history exists GFR 10/14/2024 04/13/2024, 07/31, 06/27/2023, Additional history exists Albumin/Creatinine Ratio 04/13/2025 024, 12/25/2022, 09/03/2021, Additional history exists CKD PHOS USE SMARTSET 18863 04/13/202503/29, 12/25/2022, 09/03/2021, Additional history exists Colonoscopy 10/07/2026 10/07/2023, 05/2024, 07/25/2023, Additional history exists Colorectal Cancer Screening 10/07/2026 DTap/Tdap Vaccines (3 - Td or Tdap) 09/20/2029 09/20/2019, 01/23/2009 Pneumococcal Vaccine: 50+ Years Completed 07/27/2018, 09/24/2016, 01/23/2009 VITAMIN D LEVEL ONCE IN A LIFETIME-USE SMARTSET# [id number] Completed 06/27/2023, 03/01/2019, 03/26/2017, Additional history exists [...] this encounter Medical Devices Implanted Type Area Relief Map Modeler Device Identifier Shelf Expiration Date Model / Serial / Lot Graft Allomax 1.0 6x16cm - [id number] - [id number] Implanted:Qty: 1 on 07/03/2015 by Jere Sou[place] [facility] [place] Breast CR BARD : DAVOL 08/28/2019 [id number] / [id number] / [id number] Graft Allomax 1.0 6x16cm - [id number] - [id number] Implanted:Qty: 1 on 07/03/2015 by Jere Souza MD [place] [facility] [place]: Breast CR BARD : DAVOL 04/28/2017 [id number] / [id number] / [id number] Implant Breast Li+ 350-2251bc - [id number] Implanted:Qty: 1 on 12/28/2015 by Jere Souza MD [place] [facility] [place]: Breast MENTOR DANYELLE 03/28/2016 [id number] / / [id number] Implant Breast Li+ 350-2251bc - [id number] Implanted:Qty: 1 on 12/28/2015 by Jere Souza MD [place] [facility] [place]: Breast MENTOR DANYELLE 03/28/2016 [id number] / / [id number] documented as of this encounter Advance Directives [...] Directives occurred with: Not Discussed Care Teams Route Aide Relationship Specialty Start Date End Date Marge Leal MD [address] [place] [address] [place] [phone] PCP - General Family Medicine 04/13/24 documented as of this encounter
--- OUTSIDE RECORDS SUMMARY | 2025-01-12 18:06 | External Medical Summary | Summary of Care ---
Author Name Unknown Organization [facility] Address [address] [facility] [facility] [place] [address] Phone [phone] Care Team Providers Care Box Estimator Name Role Phone Marge Leal MD Primary Care Provide r Reason for Referral * Evaluate & Treat - Unlimited Visits (Within 30 days (routine)) - Authorized Specialty Diagnoses / Procedures Referred By Tj ewing Referred To Contact Neurology Diagnoses Involuntary trembling Shaking Rafael Ochoa CRNP [address] [place] [address] [place] [address] Referral ID Status Reason Start Date Expiration Date Visits Requested Visits Authorized [id number] Authorized Specialty Services Required 4 [phone] Question Answer Referral Priority Within 30 days (routine) Where should this appointment be scheduled? [facility] Is this referral being placed for insurance purposes ONLY No, patient needs appointment [facility] NEUROLOGY REFERRAL QUESTIONS Movement Reason for Visit * Reason Comments Re-Check Encounter Details Date Type Department Care Team (Late st Contact Info) Description 07/27/2024 10:00 AM EDT Office Visit Family Medicine [address] [place] [phone] Rafael Ochoa CRNP [address] [place] [address] [place] [address] Involuntary trembling*; Shaking; HTN, goal below 140/90; Current every day smoker; Dyslipidemia, goal LDL below 100 Allergies Active Allergy Reactions Criticality Noted Date Comments Varenicline Other (Please comment) 08/23/2019 Vivid nightmares Lisinopril Edema face/lips/tongue High 03/29/2014 Metoprolol Tartrate 05/07/2019 Facial swelling, airway closing up documented as of this encounter (statuses as of 07/27/2024) Medications Medication Sig Dispensed Refills Start Date End Date Status aspirin 81 MG chewable tabletIndications:IN EVENING Take 1 Tablet by mouth in the morning. with food.. 100 Tab 5 03/09/2019 Active Zoster Vac Recomb Adjuvanted 50 MCG/0.5ML Intramuscular Suspension Reconstituted (Shingrix)Indication s:Need for vaccination for zoster Inject 0.5 mL into a large muscle now and repeat dose in 60 to 180 days 1 Each 1 08/15/2020 Active Additional Information Patient not taking.Reported on 07/22/2023 Vitamin D3 10 MCG (400 UNIT) Oral Tablet (Cholecalciferol) Take 1 Tablet by mouth in the morning. Active DULoxetine HCl 20 MG Oral Capsule Delayed Release Particles (Cymbalta)Indication s:Anxiety Take 1 Capsule by mouth in the morning. Do not cut, crush or chew. 90 Capsule 1 02/11/2024 Active hydroCHLOROthiazide 25 MG Oral Tablet (Hydrodiuril)Indicat ions:HTN, goal below 140/90 TAKE 1 TABLET BY MOUTH EVERY DAY IN THE MORNING 90 Tablet 1 05/21/2024 Active amLODIPine Besylate 10 MG Oral Tablet (Norvasc)Indications :HTN, goal below 140/90 TAKE 1 TABLET BY MOUTH EVERY DAY IN THE MORNING 90 Tablet 1 05/21/2024 Active Atorvastatin Calcium 20 MG Oral Tablet (Lipitor)Indications :Asymptomatic stenosis of left carotid artery TAKE 1 TABLET BY MOUTH EVERY DAY IN THE MORNING 90 Tablet 1 05/21/2024 Active documented as of this encounter (statuses as of 07/27/2024) Active Problems Problem Noted Date Diagnosed Date Iron deficiency anemia 05/19/2020 Oxygen desaturation during sleep 02/17/2020 COPD, mild 01/25/2020 Decreased diffusion capacity of lung 01/25/2020 Mild tricuspid regurgitation 04/15/2019 Overview: Echo 02/2019 Lung nodule 03/15/2019 Overview: 6 x 7 mm nodule 03/15/19. Repeat in 6 months. 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 Anxiety 07/27/2018 Osteoporosis 10/25/2016 History of breast cancer 07/26/2015 HTN, goal below 140/90 01/10/2012 ADVANCE DIRECTIVE INFORMATION 08/11/2006 Overview: Offered info. Pt. Declined. Tobacco use disorder 03/14/2006 Chronic rhinitis 03/14/2006 documented as of this encounter (statuses as of 07/27/2024) Resolved Problems Problem Noted Date Diagnosed Date [...] history of ischemic heart disease 01/23/2009 07/27/2018 documented as of this encounter (statuses as of 07/27/2024) Immunizations Name Administration Dates Next Due Pneumococcal [...] Tobacco: Never Tobacco Cessation:Ready to Q uit: Not Asked; Counseling Given: Not Answered Alcohol Use Standard Drinks/Week Comments Yes 0 [...] ages 0-17 years) Not on file 07/13/2024 Sex and Gender Information Value Date Recorded Sex Assigned at Female 12/23/2023 11:41 AM EDT Gender Identity Female 12/23/2023 11:41 AM EDT Sexual Orientation Straight 12/23/2023 11 :41 AM EDT Job Start Date Occupation Industry Not on file Not on file Not on file documented as of this encounter Last Filed Vital Signs Vital Sign Reading Time Taken Comments Blood Pressure 114/68 07/27/2024 9:53 AM EDT Pulse 100 07/27/2024 9:53 AM EDT Temperature 36.3 °C (97.3 °F) 07/27/2024 9:53 AM ED T Respiratory Rate - - Oxygen Saturation 97% 07/27/2024 9:53 AM EDT Inhaled Oxygen Concentration - - Weight 78 kg (172 lb) 07/27/2024 9:53 AM EDT Height - - Body Mass Index 26.94 07/22/2023 2:10 PM EDT documented in this encounter Nursing Notes * Betzaida Albarran LPN - 07/27/2024 9:53 AM EDT 6 month recheck Episode Friday of shaking. [facility] hosp. Was given IV for magnesium was low. And was told she was having nicotine withdrawal. She cut back on smoking past couple days. documented in this encounter Plan of Treatment Upcoming Encounters Date Type Department Care Team (Late st Contact Info) Description 08/09/2024 11:00 AM EST Imaging Radiology [facility] 1st [facility] [address] [place] [address] 08/19/2024 10:00 AM EST Office Visit Neurology [facility] [address] [facility] [place] [address] Kate Morgan PA-C [address] [facility] [address] [place] [address] 01/28/2025 10:20 AM EDT Office Visit Family [address] [phone] Rafael Ochoa CRNP [address] [place] [address] [place] [address] 09/02/2025 10:00 AM EST Office Visit Family [address] [phone] Marge Leal MD [address] [place] [address] [place] [address] Scheduled Procedures Name Priority Associated Diagnoses Date/Ti me COLONOSCOPY FLEXIBLE PROXIMA L DIAGNOSTIC Recall Constipation, unspecified constipation type Scheduled Referrals Name Type Priority Associated Diagnoses Orde r Schedule ADULT NEUROLOGY REFERRAL OP Referral Within 30 days (routine) Involuntary trembling Shaking Ordered: 07/27/2024 Health Maintenance Due Date Last Done Comments [...] COPD 10/07/2024 10/07/2023 CKD HGB USE SMARTSET 04359 10/10/202410/10, 10/10/2023, 08/22/2023, Additional history exists GFR 10/14/2024 04/13/2024, 07/31, 06/27/2023, Additional history exists Albumin/Creatinine Ratio 04/13/2025 024, 12/25/2022, 09/03/2021, Additional history exists CKD PHOS USE SMARTSET 84143 04/13/202503/29, 12/25/2022, 09/03/2021, Additional history exists Colonoscopy 10/07/2026 10/07/2023, 05/2024, 07/25/2023, Additional history exists Colorectal Cancer Screening 10/07/2026 DTap/Tdap Vaccines (3 - Td or Tdap) 09/20/2029 09/20/2019, 01/23/2009 Pneumococcal Vaccine: 65+ Years Completed 07/27/2018, 09/24/2016, 01/23/2009 VITAMIN D LEVEL ONCE IN A LIFETIME-USE SMARTSET# 80101 Completed 06/27/2023, 03/01/2019, 03/26/2017, Additional history exists [...] this encounter Medical Devices Implanted Type Area Processing Archivist Device Identifier Shelf Expiration Date Model / Serial / Lot Graft Allomax 1.0 6x16cm - [id number] - [id number] Implanted:Qty: 1 on 07/03/2015 by Jere Souza MD at OR [facility] [place] Right: Breast CR BARD : DAVOL 08/28/2019 [id number] / [id number] / [id number] Graft Allomax 1.0 6x16cm - [id number] - [id number] Implanted:Qty: 1 on 07/03/2015 by Jere Souza MD at OR [facility] [place] Left: Breast CR BARD : DAVOL 04/28/2017 [id number] / [id number] / [id number] Implant Breast Li+ 350-2251bc - [id number] Implanted:Qty: 1 on 12/28/2015 by Jere Souza MD at OR [facility] [place] Left: Breast MENTOR DANYELLE 03/28/2016 350-2251BC / / [id number] Implant Breast Li+ 350-2251bc - [id number] Implanted:Qty: 1 on 12/28/2015 by Jere Souza MD at OR [facility] [place] Right: Breast MENTOR DANYELLE 03/28/2016 [id number] / / [id number] documented as of this encounter Visit Diagnoses Diagnosis Involuntary trembling- Primary Abnormal involuntary movements Shaking Abnormal involuntary movements HTN, goal below 140/90 Unspecified essential hypertension Current every day smoker Tobacco use disorder Dyslipidemia, goal LDL below 100 Other and unspecified hyperlipidemia documented in this encounter Advance Directives * [...] Directives occurred with: Not Discussed Care Teams Box Estimator Relationship Specialty Start Date End Date Marge Leal MD [address] [place] [address] [place] [address] PCP - General Family Medicine 04/13/24 documented as of this encounter
--- OUTSIDE RECORDS SUMMARY | 2025-01-12 18:06 | External Medical Summary | Summary of Care ---
Author Name Unknown Organization [facility] Address [address] [facility] [place] [address] Phone [phone] Care Team Providers Care Lithograph Press Operator Name Role Phone Marge Leal MD Primary Care Provide r Reason for Visit * Reason Comments eRx-Medication Refill Encounter Details Date Type Department Care Team (Late st Contact Info) Description 07/27/2024 Refill Family Medicine [address] [phone] Aundrea Pak PA-C [address] [place] [address] [place] [phone] Anxiety Allergies Active Allergy Reactions Criticality Noted Date Comments Varenicline Other (Please comment) 08/23/2019 Vivid nightmares Lisinopril Edema face/lips/tongue High 03/29/2014 Metoprolol Tartrate 05/07/2019 Facial swelling, airway closing up documented as of this encounter (statuses as of 07/28/2024) Medications Medication Sig Dispensed Refills Start Date End Date Status aspirin 81 MG chewable tabletIndications: IN EVENING [...] OR CHEW. 90 Capsule 1 4 Active DULoxetine HCl 20 MG Oral Capsule Delayed Release Particles (Cymbalta)Indicati ons:Anxiety Take 1 Capsule by mouth in the morning. Do not cut, crush or chew. 90 Capsule 1 4 07/28/20 24 Discontinued documented as of this encounter (statuses as of 07/28/2024) Active Problems Problem Noted Date Diagnosed Date [...] as of this encounter (statuses as of 07/28/2024) Resolved Problems Problem Noted Date Diagnosed Date [...] as of this encounter (statuses as of 07/28/2024) Immunizations Name Administration Dates Next Due Pneumococcal [...] on file documented as of this encounter Miscellaneous Notes * Telephone Encounter - Xavier Rizo [facility] - 07/28/2024 3:33 PM EDTSigned Prescriptions: Disp Refills DULoxetine HCl 20 MG Oral Capsule Delayed *90 Cap*1 Sig: TAKE 1 CAPSULE BY MOUTH IN THE MORNING. DO NOT CUT, CRUSH OR CHEW.Authorizing Provider: MARGE LEAL User: XAVIER RIZO documented in this encounter Plan of Treatment Upcoming Encounters Date Type Department Care Team (Late st Contact Info) Description 08/09/2024 11:00 AM EST Imaging Radiology [address] [facility] [place] [address] 08/10/2024 8:00 AM EST Office Visit Neurology [facility] [address] [place] [address] Connie Stephens MD [address] [place] [address] 01/28/2025 10:20 AM EDT Office Visit Family Medicine [address] [place] [phone] Rafael Ochoa CRNP [address] [place] [address] [place] [address] 09/02/2025 10:00 AM EST Office Visit Family Medicine [address] [place] [phone] Marge Leal MD [address] [place] [address] [place] [address] Scheduled Procedures Name Priority Associated Diagnoses Date/Ti me COLONOSCOPY FLEXIBLE PROXIMA L DIAGNOSTIC Recall Constipation, unspecified constipation type Health Maintenance Due Date Last Done Comments DISCUSS TOBACCO CESSATION (REFER TO SMARTSET #3297) 1950 Alpha-1 Antitrypsin 1969 Cologuard 1996 Fecal [...] COPD 10/07/2024 10/07/2023 CKD HGB USE SMARTSET 87392 10/10/202410/10, 10/10/2023, 08/22/2023, Additional history exists GFR 10/14/2024 04/13/2024, 07/31, 06/27/2023, Additional history exists Albumin/Creatinine Ratio 04/13/2025 024, 12/25/2022, 09/03/2021, Additional history exists CKD PHOS USE SMARTSET 00017 04/13/202503/29, 12/25/2022, 09/03/2021, Additional history exists Colonoscopy 10/07/2026 10/07/2023, 01/0 05/2024, 07/25/2023, Additional history exists Colorectal Cancer Screening 10/07/2026 DTap/Tdap Vaccines (3 - Td or Tdap) 09/20/2029 09/20/2019, 01/23/2009 Pneumococcal Vaccine: 65+ Years Completed 07/27/2018, 09/24/2016, 01/23/2009 VITAMIN D LEVEL ONCE IN A LIFETIME-USE SMARTSET# 13446 Completed 06/27/2023, 03/01/2019, 03/26/2017, Additional history exists [...] this encounter Medical Devices Implanted Type Area Hot Repairman Device Identifier Shelf Expiration Date Model / Serial / Lot Graft Allomax 1.0 6x16cm - [id number] - [id number] Implanted:Qty: 1 on 07/03/2015 by Jere Souza MD at OR [facility] [place] Right: Breast CR BARD : DAVOL 08/28/2019 [id number] / [id number] / [id number] Graft Allomax 1.0 6x16cm - [id number] - [id number] Implanted:Qty: 1 on 07/03/2015 by Jere Souza MD at OR [facility] [place] Left: Breast CR BARD : DAVOL 04/28/2017 [id number] / [id number] / [id number] Implant Breast Li+ 350-2251bc - [id number] Implanted:Qty: 1 on 12/28/2015 by Jere Souza MD at OR [facility] [place] Left: Breast MENTOR DANYELLE 03/28/2016 [id number] / / [id number] Implant Breast Li+ 350-2251bc - [id number] Implanted:Qty: 1 on 12/28/2015 by Jere Souza MD at OR [facility] [place] Right: Breast MENTOR DANYELLE 03/28/2016 [id number] / / [id number] documented as of this encounter Visit Diagnoses Diagnosis Anxiety Anxiety state, unspecified documented in this encounter Advance Directives * [...] Directives occurred with: Not Discussed Care Teams Lithograph Press Operator Relationship Specialty Start Date End Date Marge Leal MD [address] [place] [address] [place] [address] PCP - General Family Medicine 04/13/24 documented as of this encounter
--- OUTSIDE RECORDS SUMMARY | 2025-01-12 18:06 | External Medical Summary | Summary of Care ---
Author Name Unknown Organization [facility] Address [address] [facility] [place] [address] Phone [phone] Care Team Providers Care Sack Filler Name Role Phone Marge Leal MD Primary Care Provide r Encounter Details Date Type Department Care Team (Late st Contact Info) Description 10/19/2024 Population Health External Data Unspecified Department Allergies Active Allergy Reactions Criticality Noted Date Comments Varenicline Other (Please comment) 08/23/2019 Vivid nightmares Lisinopril Edema face/lips/tongue High 03/29/2014 Metoprolol Tartrate 05/07/2019 Facial swelling, airway closing up documented as of this encounter (statuses as of 10/19/2024) Medications aspirin 81 MG chewable tabletIndications :IN [...] as of this encounter (statuses as of 10/19/2024) Active Problems Problem Noted Date Diagnosed Date [...] as of this encounter (statuses as of 10/19/2024) Resolved Problems Problem Noted Date Diagnosed Date [...] as of this encounter (statuses as of 10/19/2024) Immunizations Name Administration Dates Next Due Pneumococcal [...] Care Team (Late st Contact Info) Description 10/21/2024 11:00 AM EST PulmDiagnostic Pulmonary Function Lab, [facility] [address] [facility] [place] [address] [place] [facility] [place] [address] 01/28/2025 10:20 AM EDT Office Visit Family Medicine [address] [phone] Rafael Ochoa CRNP [address] [place] [address] [place] [address] 02/15/2025 10:40 AM EDT Office Visit Neurology [facility] [address] [address] Corey Smiley MD [address] [place] [address] 09/02/2025 10:00 AM EST Office Visit Family [address] [phone] Marge Leal MD [address] [place] [address] [place] [address] Scheduled Procedures Name Priority Associated Diagnoses Date/Ti [...] Additional history exists CKD HGB USE SMARTSET 43532 10/10/202410/10, 10/10/2023, 08/22/2023, Additional history exists GFR 10/14/2024 04/13/2024, 07/31, 06/27/2023, Additional history exists Albumin/Creatinine Ratio 04/13/2025 024, 12/25/2022, 09/03/2021, Additional history exists CKD PHOS USE SMARTSET 23624 04/13/202503/29, 12/25/2022, 09/03/2021, Additional history exists O2 ASSESSMENT COMPLETED IN PAST YEAR FOR COPD 07/27/2025 07/27/2024 Colonoscopy 10/07/2026 10/07/2023, 01/0 05/2024, 07/25/2023, Additional history exists Colorectal Cancer Screening 10/07/2026 DTap/Tdap Vaccines (3 - Td or Tdap) 09/20/2029 09/20/2019, 01/23/2009 Pneumococcal Vaccine: 50+ Years Completed 07/27/2018, 09/24/2016, 01/23/2009 VITAMIN D LEVEL ONCE IN A LIFETIME-USE SMARTSET# 61043 Completed 06/27/2023, 03/01/2019, 03/26/2017, Additional history exists [...] encounter Medical Devices Implanted Type Area Medical Office Technologist Device Identifier Shelf Expiration Date Model / Serial / Lot Graft Allomax 1.0 6x16cm - [id number] - [id number] Implanted:Qty: 1 on 07/03/2015 by Jere Souza MD [place] [facility] [place] Breast CR BARD : DAVOL 08/28/2019 [id number] / [id number] / [id number] Graft Allomax 1.0 6x16cm - [id number] - [id number] Implanted:Qty: 1 on 07/03/2015 by Jere Souza MD [place] [facility] [place]: Breast CR BARD : DAVOL 04/28/2017 [id number] / [id number] / [id number] Implant Breast Li+ 350-2251bc - [id number] Implanted:Qty: 1 on 12/28/2015 by Jere Souza MD [place] [facility]: Breast MENTOR DANYELLE 03/28/2016 [id number] / / [id number] Implant Breast Li+ 350-2251bc - [id number] Implanted:Qty: 1 on 12/28/2015 by Jere Souza MD [place] [facility] [place]: Breast MENTOR DANYELLE 03/28/2016 [id number] / / [id number] documented as of this encounter Advance Directives [...] Directives occurred with: Not Discussed Care Teams Sack Filler Relationship Specialty Start Date End Date Marge Leal MD [address] [place] [address] [place] [phone] PCP - General Family Medicine 04/13/24 documented as of this encounter
--- OUTSIDE RECORDS SUMMARY | 2025-01-12 18:06 | External Medical Summary | Summary of Care ---
Author Name Unknown Organization [facility] Address [address] [place] [address] Phone [phone] Care Team Providers Care Fourdrinier Tender Name Role Phone Marge Leal MD Primary Care Provide r Reason for Visit * Reason Onset Date Comments Referral 10/01/2024 Encounter Details Date Type Department Care Team (Late st Contact Info) Description 10/01/2024 New Patient Triage (TUBULAR SPLITTING MACHINE TENDER USE ONLY) [facility]urg [facility] [address], [place] [id number] Radha Horner, ethnology teacher Allergies Active Allergy Reactions Criticality Noted Date Comments Varenicline Other (Please comment) 08/23/2019 Vivid nightmares Lisinopril Edema face/lips/tongue High 03/29/2014 Metoprolol Tartrate 05/07/2019 Facial swelling, airway closing up documented as of this encounter (statuses as of 10/07/2024) Medications aspirin 81 MG chewable tabletIndications :IN [...] as of this encounter (statuses as of 10/07/2024) Active Problems Problem Noted Date Diagnosed Date [...] as of this encounter (statuses as of 10/07/2024) Resolved Problems Problem Noted Date Diagnosed Date [...] as of this encounter (statuses as of 10/07/2024) Immunizations Name Administration Dates Next Due Pneumococcal [...] AM EDT documented as of this encounter Progress Notes * Holley Beth PA-C - 10/07/2024 4:59 PM EST Does patient need to be seen?: Yes Modality: Office visit Urgency: Within 10 days (routine) Discussed care plan with patient or proxy?: Yes Patient contacted by Radha Horner RN Communicated with patient on Date (mm/moris/yyyy): 10/01/2024 at Time ([facility]): 1600 * Radha Horner RN - 10/01/2024 4:15 PM EST New Patient Triage What is the diagnosis/reason for referral?: slowly enlarging SAURAV nodules, appears suspicious Enter order ID here: [id number] Specialty specific documentation: Cardiac and Thoracic Surgery Discussed care plan with patient or proxy?: Yes called Joanie regarding C referral from TAMIKO Jhaveri regarding her lung nodule. I explained that we did a committee review yesterday due to her distance so I had recommendations for when we spoke. I explained to her about needing PFTs and reason why We then discussed coming to [facility] in [place] and meeting with both surgeon and rad/onc or doing a telemedicine appt with surgeon and then seeing rad.onc closer to home. She preferred coming to [place] to meet with both doctors on same day, her soon to be DIL could probably bring her. I will work on getting PFTs scheduled at [facility] then call her back with [facility] appt. She is awarethey are on afternoons. 74 year old, active smoker PMH: breast cancer 1984 s/p radiation, breast cancer 2014 bilateral mastectomies and chemo, HTN, and anxiety. See committee review from 09/30/2024 Communicated with patient on Date (mm/moris/yyyy): 10/01/2024 at Time ([facility]): 1600 Radha Horner RN MSN [facility] Thoracic Surgery Nurse Navigator [facility] documented in this encounter Plan of Treatment Upcoming Encounters Date Type Department Care Team (Late st Contact Info) Description 10/21/2024 11:00 AM EST PulmDiagnostic Pulmonary Function Lab, [facility] [address] [facility] [place] [address] [address], [address] [facility] [place] [address] 01/28/2025 10:20 AM EDT Office Visit Family [address] [phone] Rafael Ochoa CRNP [address] [place] [address] [place] [address] 02/15/2025 10:40 AM EDT Office Visit Neurology [facility] [address] [place] [address] Corey Smiley MD [address] [place] [address] 09/02/2025 10:00 AM EST Office Visit Family [address] [phone] Marge Leal MD [address] [place] [address] [place] [address] Scheduled Procedures Name Priority Associated Diagnoses Date/Ti [...] COPD 10/07/2024 10/07/2023 CKD HGB USE SMARTSET 80115 10/10/202410/10, 10/10/2023, 08/22/2023, Additional history exists GFR 10/14/2024 04/13/2024, 07/31, 06/27/2023, Additional history exists Albumin/Creatinine Ratio 04/13/2025 024, 12/25/2022, 09/03/2021, Additional history exists CKD PHOS USE SMARTSET 81535 04/13/202503/29, 12/25/2022, 09/03/2021, Additional history exists Colonoscopy 10/07/2026 10/07/2023, 05/2024, 07/25/2023, Additional history exists Colorectal Cancer Screening 10/07/2026 DTap/Tdap Vaccines (3 - Td or Tdap) 09/20/2029 09/20/2019, 01/23/2009 Pneumococcal Vaccine: 50+ Years Completed 07/27/2018, 09/24/2016, 01/23/2009 VITAMIN D LEVEL ONCE IN A LIFETIME-USE SMARTSET# 90853 Completed 06/27/2023, 03/01/2019, 03/26/2017, Additional history exists [...] this encounter Medical Devices Implanted Type Area Investigative Reporter Device Identifier Shelf Expiration Date Model / Serial / Lot Graft Allomax 1.0 6x16cm - [id number] - [id number] Implanted:Qty: 1 on 07/03/2015 [place] [facility] [place] Breast CR BARD : DAVOL 08/28/2019 [id number] / [id number] / [id number] Graft Allomax 1.0 6x16cm - [id number] - [id number] Implanted:Qty: 1 on 07/03/2015 by Jere Souza MD [place] [facility] [place]: Breast CR BARD : DAVOL 04/28/2017 [id number] / [id number] / [id number] Implant Breast Li+ 350-2251bc - [id number] Implanted:Qty: 1 on 12/28/2015 by Jere Souza MD [place] [facility] [place] Breast MENTOR DANYELLE 03/28/2016 [id number] / / [id number] Implant Breast Li+ 350-2251bc - [id number] Implanted:Qty: 1 on 12/28/2015 by Jere Souza MD [place] [facility] [place]: Breast MENTOR DANYELLE 03/28/2016 [id number] / / [id number] documented as of this encounter Advance Directives [...] Directives occurred with: Not Discussed Care Teams Fourdrinier Tender Relationship Specialty Start Date End Date Marge Leal MD [address] [place] [address] [place] [address] PCP - General Family Medicine 04/13/24 documented as of this encounter
--- OUTSIDE RECORDS SUMMARY | 2025-01-12 18:06 | External Medical Summary | Summary of Care ---
Author Name Unknown Organization [facility] Address [address] [place] [address] Phone [phone] Care Team Providers Care B And B Gang Worker Name Role Phone Marge Leal MD Primary Care Provide r Reason for Referral * Precert (Within 10 days (routine)) - Authorized Specialty Diagnoses / Procedures Referred By Contac t Referred To Contact Radiology Diagnoses Pulmonary nodule Procedures PET CT SKULL BASE TO MID-THIGH FDG Tamia Coyne CRNP [address] [place] [address] Phone: tel: fax: Referral ID Status Reason Start Date Expiration Date V isits Requested Visits Authorized [id number] Authorized 08/26/2024 999 999 Reason for Visit * Reason Onset Date Comments STAIR Lung Nodule 08/25/2024 Encounter Details Date Type Department Care Team (Late st Contact Info) Description 08/25/2024 Telephone STAIR LUNG NODULE [address] [place] [address] Tamia Coyne CRNP [address] [place] [address] STAIR Lung Nodule Allergies Active Allergy Reactions Criticality Noted Date Comments Varenicline Other (Please comment) 08/23/2019 Winston nightdolores Lisinopril Edema face/lips/tongue High 03/29/2014 Metoprolol Tartrate 05/07/2019 Facial swelling, airway closing up documented as of this encounter (statuses as of 08/27/2024) Medications aspirin 81 MG chewable tabletIndications :IN [...] as of this encounter (statuses as of 08/27/2024) Active Problems Problem Noted Date Diagnosed Date [...] as of this encounter (statuses as of 08/27/2024) Resolved Problems Problem Noted Date Diagnosed Date [...] as of this encounter (statuses as of 08/27/2024) Immunizations Name Administration Dates Next Due Pneumococcal [...] Miscellaneous Notes * Telephone Encounter - Elysia Pepe OSA [...] or Interventional Radiology given the location itself michael is still a candidate given the fact [...] 01/28/2025 10:20 AM EDT Office Visit Family [address] [phone] Rafael Ochoa CRNP [address] [place] [address] [place] [address] 02/15/2025 10:40 AM EDT Office Visit Neurology [facility] [address] [facility] [place] [address] Corey Smiley MD [address] [place] [address] 09/02/2025 10:00 AM EST Office Visit Family [address] [phone] Marge Leal MD [address] [place] [address] [place] [id number] Scheduled Orders Name Type Priority Associated Diagnoses Orde r Schedule PET CT SKULL BASE TO MID-THIGH FDG Medical Imaging Routine Pulmonary nodule Expected: 08/26/2024, Expires: 09/24/2025 Scheduled Procedures Name Priority Associated Diagnoses Date/Ti me COLONOSCOPY FLEXIBLE PROXIMA L DIAGNOSTIC Recall Constipation, unspecified constipation type Health Maintenance Due Date Last Done Comments DISCUSS TOBACCO CESSATION (REFER TO SMARTSET #8571) 1950 Alpha-1 Antitrypsin 1969 Cologuard 1996 Fecal [...] COPD 10/07/2024 10/07/2023 CKD HGB USE SMARTSET 96433 10/10/202410/10, 10/10/2023, 08/22/2023, Additional history exists GFR 10/14/2024 04/13/2024, 07/31, 06/27/2023, Additional history exists Albumin/Creatinine Ratio 04/13/2025 024, 12/25/2022, 09/03/2021, Additional history exists CKD PHOS USE SMARTSET 72327 04/13/202503/29, 12/25/2022, 09/03/2021, Additional history exists Colonoscopy 10/07/2026 10/07/2023, 05/2024, 07/25/2023, Additional history exists Colorectal Cancer Screening 10/07/2026 DTap/Tdap Vaccines (3 - Td or Tdap) 09/20/2029 09/20/2019, 01/23/2009 Pneumococcal Vaccine: 65+ Years Completed 07/27/2018, 09/24/2016, 01/23/2009 VITAMIN D LEVEL ONCE IN A LIFETIME-USE SMARTSET# 38668 Completed 06/27/2023, 03/01/2019, 03/26/2017, Additional history exists [...] this encounter Medical Devices Implanted Type Area Front Office Secretary Device Identifier Shelf Expiration Date Model / Serial / Lot Graft Allomax 1.0 6x16cm - [id number] - [id number] Implanted:Qty: 1 on 07/03/2015 [place] [facility] [place]: Breast CR BARD : DAVOL 08/28/2019 [id number] / [id number] / [id number] Graft Allomax 1.0 6x16cm - [id number] - [id number] Implanted:Qty: 1 on 07/03/2015 by Jere Souza [place] [facility] [place]: Breast CR BARD : DAVOL 04/28/2017 [id number] / [id number] / [id number] Implant Breast Li+ 350-2251bc - [id number] Implanted:Qty: 1 on 12/28/2015 by Jere Souza [place] [facility] [place]: Breast MENTOR DANYELLE 03/28/2016 [id number] / / [id number] Implant Breast Li+ 350-2251bc - [id number] Implanted:Qty: 1 on 12/28/2015 by Jere Souza [place] [facility] [place]: Breast MENTOR DANYELLE 03/28/2016 [id number] / / [id number] documented as of this encounter Visit Diagnoses [...] Directives occurred with: Not Discussed Care Teams B And B Gang Worker Relationship Specialty Start Date End Date Marge Leal MD [address] [place] [address] [place] [address] PCP - General Family Medicine 04/13/24 documented as of this encounter
--- OUTSIDE RECORDS SUMMARY | 2025-01-12 18:06 | External Medical Summary | Summary of Care ---
Author Name Unknown Organization [facility] Address [address] [place] [address] Phone [phone] Care Team Providers Care Manager Chemistry Name Role Phone Marge Leal MD Primary Care Provide r Reason for Referral * Precert (Within 10 days (routine)) - Authorized Specialty Diagnoses / Procedures Referred By Contac t Referred To Contact Radiology Diagnoses Pulmonary nodule Procedures PET CT SKULL BASE TO MID-THIGH FDG Tamia Coyne CRNP [address] [place] [address] Phone: tel: fax: Referral ID Status Reason Start Date Expiration Date V isits Requested Visits Authorized [id number] Authorized 08/26/2024 999 999 Reason for Visit * Reason Onset Date Comments STAIR Lung Nodule 08/25/2024 Encounter Details Date Type Department Care Team (Late st Contact Info) Description 08/25/2024 Telephone STAIR LUNG NODULE [address] [place] [address] Tamia Coyne CRNP [address] [place] [address] STAIR Lung Nodule Allergies Active Allergy Reactions Criticality Noted Date Comments Varenicline Other (Please comment) 08/23/2019 Winston nightdolores Lisinopril Edema face/lips/tongue High 03/29/2014 Metoprolol Tartrate 05/07/2019 Facial swelling, airway closing up documented as of this encounter (statuses as of 08/30/2024) Medications aspirin 81 MG chewable tabletIndications :IN [...] as of this encounter (statuses as of 08/30/2024) Active Problems Problem Noted Date Diagnosed Date [...] as of this encounter (statuses as of 08/30/2024) Resolved Problems Problem Noted Date Diagnosed Date [...] as of this encounter (statuses as of 08/30/2024) Immunizations Name Administration Dates Next Due Pneumococcal [...] avid. Discussed CT scan and plan with Joanie. SAURAV irregular nodule is slowly enlarging in size. Will proceed with a PET CT at . She did not seem happy about it, but will go ahead with the PET CT. documented in this encounter Plan of Treatment Upcoming Encounters Date Type Department Care Team (Late st Contact Info) Description 09/21/2024 8:45 AM EST Imaging Radiology [facility] [address] [facility] [address] [facility] [place] [address] 01/28/2025 10:20 AM EDT Office Visit Family Medicine [facility] Brendan [address] [place] [address] [place] [phone] Rafael Ochoa CRNP [address] [place] [address] [place] [address] 02/15/2025 10:40 AM EDT Office Visit Neurology [facility] 200 [facility] [place] [address] Corey Smiley MD [address] [place] [address] 09/02/2025 10:00 AM EST Office Visit Family [address] [phone] Marge Leal MD [address] [place] [address] [place] [phone] Scheduled Orders Name Type Priority Associated Diagnoses [...] COPD 10/07/2024 10/07/2023 CKD HGB USE SMARTSET 36128 10/10/202410/10, 10/10/2023, 08/22/2023, Additional history exists GFR 10/14/2024 04/13/2024, 07/31, 06/27/2023, Additional history exists Albumin/Creatinine Ratio 04/13/2025 024, 12/25/2022, 09/03/2021, Additional history exists CKD PHOS USE SMARTSET 02334 04/13/202503/29, 12/25/2022, 09/03/2021, Additional history exists Colonoscopy 10/07/2026 10/07/2023, 05/2024, 07/25/2023, Additional history exists Colorectal Cancer Screening 10/07/2026 DTap/Tdap Vaccines (3 - Td or Tdap) 09/20/2029 09/20/2019, 01/23/2009 Pneumococcal Vaccine: 65+ Years Completed 07/27/2018, 09/24/2016, 01/23/2009 VITAMIN D LEVEL ONCE IN A LIFETIME-USE SMARTSET# 92967 Completed 06/27/2023, 03/01/2019, 03/26/2017, Additional history exists [...] encounter Medical Devices Implanted Type Area Environmental Systems Coordinator Device Identifier Shelf Expiration Date Model / Serial / Lot Graft Allomax 1.0 6x16cm - [id number] - [id number] Implanted:Qty: 1 on 07/03/2015 by Jere Souza MD [place] [facility] [place]: Breast CR BARD : DAVOL 08/28/2019 [id number] / [id number] / [id number] Graft Allomax 1.0 6x16cm - [id number] - [id number] Implanted:Qty: 1 on 07/03/2015 by Jere Souza MD at [place] [facility] Left: Breast CR BARD : DAVOL 04/28/2017 [id number] / [id number] / [id number] Implant Breast Li+ 350-2251bc - [id number] Implanted:Qty: 1 on 12/28/2015 by Jere Souza MD at [place] [facility] [place] Left: Breast MENTOR DANYELLE 03/28/2016 350-2251BC / / [id number] Implant Breast Li+ 350-2251bc - [id number] Implanted:Qty: 1 on 12/28/2015 by Jere Souza MD at [place] [facility] Right: Breast MENTOR DANYELLE 03/28/2016 [id number] / / [id number] documented as of this encounter Visit Diagnoses [...] occurred with: Not Discussed Care Teams Manager Chemistry Relationship Specialty Start Date End Date Marge Leal MD [address] [place] [address] [place] [phone] PCP - General Family Medicine 04/13/24 documented as of this encounter
--- OUTSIDE RECORDS SUMMARY | 2025-01-12 18:06 | External Medical Summary | Summary of Care ---
Author Name Unknown Organization [facility] Address [address] [facility] [address] Phone [phone] Care Team Providers Care Tack Cutter Name Role Phone Marge Leal MD Primary Care Provide r Reason for Visit * Reason Comments Pulmonary Function Test PFT without bron chodilator Encounter Details Date Type Department Care Team (Latest Contact Info) Description 10/21/2024 11:00 AM EST PulmDiagnostic Pulmonary Function Lab, [facility] [address] [place] [address] [address], [address] [facility] [place] [address] Nodule of upper lobe of left lung* Allergies Active Allergy Reactions Criticality Noted Date Comments Varenicline Other (Please comment) 08/23/2019 Vivid nightmares Lisinopril Edema face/lips/tongue High 03/29/2014 Metoprolol Tartrate 05/07/2019 Facial swelling, airway closing up documented as of this encounter (statuses as of 10/21/2024) Medications aspirin 81 MG chewable tabletIndications :IN [...] as of this encounter (statuses as of 10/21/2024) Active Problems Problem Noted Date Diagnosed Date [...] as of this encounter (statuses as of 10/21/2024) Resolved Problems Problem Noted Date Diagnosed Date [...] as of this encounter (statuses as of 10/21/2024) Immunizations Name Administration Dates Next Due Pneumococcal [...] Sign Reading Time Taken Comments Blood Pressure - - Pulse - - Temperature - - Respiratory Rate - - Oxygen Saturation - - Inhaled Oxygen Concentration - - Weight 78 kg (172 lb) 10/21/2024 11:00 AM EST Height 171.5 cm (5' 7.5") 10/21/2024 11:00 AM ES T Body Mass Index 26.54 10/21/2024 11:00 AM EST documented in this encounter Nursing Notes * Cari You RRT - 10/21/2024 11:07 AM EST Joanie Mcclure was identified by name, Date of : (1950), and . Vitals wereobtained for testing. Body mass index is 26.54 kg/m². Pt has a 1.5 ppd for 45 years smoking history and is currently down to 1 ppd. 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 PFT without bronchodilator documented in this encounter Plan of Treatment Upcoming Encounters Date Type Department Care Team (Late st Contact Info) Description 01/28/2025 10:20 AM EDT Office Visit Family Medicine [address] [place] [phone] Rafael Ochoa [address] [place] [address] 02/15/2025 10:40 AM EDT Office Visit Neurology In[facility] Merrill [address] [place] [address] Corey Smiley MD [address] [place] [address] 09/02/2025 10:00 AM EST Office Visit Family Medicine [address] [place] [phone] Marge Leal MD [address] [place] [address] [place] [address] Pending Results Name Type Priority Associated Diagnoses Date /Time BASIC SPIROMETRY Procedures Routine Nodule of upper lobe of left lung 10/21/2024 10:55 AM EST DIFFUSION CAPACITY (DLCO) Procedures Routine Nodule of upper lobe of left lung 10/21/2024 10:55 AM EST Scheduled Procedures Name Priority Associated [...] Additional history exists CKD HGB USE SMARTSET 99119 10/10/202410/10, 10/10/2023, 08/22/2023, Additional history exists GFR 10/14/2024 04/13/2024, 07/31, 06/27/2023, Additional history exists Albumin/Creatinine Ratio 04/13/2025 024, 12/25/2022, 09/03/2021, Additional history exists CKD PHOS USE SMARTSET 17199 04/13/2025 07/1 02/2024, 12/25/2022, 09/03/2021, Additional history exists O2 ASSESSMENT COMPLETED IN PAST YEAR FOR COPD 07/27/2025 07/27/2024 Colonoscopy 10/07/2026 10/07/2023, 01/0 05/2024, 07/25/2023, Additional history exists Colorectal Cancer Screening 10/07/2026 DTap/Tdap Vaccines (3 - Td or Tdap) 09/20/2029 09/20/2019, 01/23/2009 Pneumococcal Vaccine: 50+ Years Completed 07/27/2018, 09/24/2016, 01/23/2009 VITAMIN D LEVEL ONCE IN A LIFETIME-USE SMARTSET# 12667 Completed 06/27/2023, 03/01/2019, 03/26/2017, Additional history exists [...] this encounter Medical Devices Implanted Type Area Machine Ii Cutter Device Identifier Shelf Expiration Date Model / Serial / Lot Graft Allomax 1.0 6x16cm - [id number] - [id number] Implanted:Qty: 1 on 07/03/2015 by Jere Souza MD [place] [facility] [place] Right: Breast CR BARD : DAVOL 08/28/2019 [id number] / [id number] / [id number] Graft Allomax 1.0 6x16cm - [id number] - [id number] Implanted:Qty: 1 on 07/03/2015 by Jere Souza MD at [place] [facility] [place] Left: Breast CR BARD : DAVOL 04/28/2017 [id number] / [id number] / [id number] Implant Breast Li+ 350-2251bc - [id number] Implanted:Qty: 1 on 12/28/2015 by Jere Souza MD at [place] [facility] [place] Left: Breast MENTOR DANYELLE 03/28/2016 [id number] / / [id number] Implant Breast Li+ 350-2251bc - [id number] Implanted:Qty: 1 on 12/28/2015 by Jere Souza MD at [place] [facility] [place] Right: Breast MENTOR DANYELLE 03/28/2016 [id number] / / [id number] documented as of this encounter Procedures Procedure Name Priority Date/Time Associated Diagnosis Comments DIFFUSION CAPACITY (DLCO) Routine 10/21/2024 10:55 AM EST Nodule of upper lobe of left lung BASIC SPIROMETRY Routine 10/21/2024 10:5 5 AM EST Nodule of upper lobe of left lung documented in this encounter Visit Diagnoses Diagnosis Nodule of upper lobe of left lung- Primary documented in this encounter Advance Directives [...] Directives occurred with: Not Discussed Care Teams Tack Cutter Relationship Specialty Start Date End Date Marge Leal MD [address] [place] [address] [place] [phone] PCP - General Family Medicine 04/13/24 documented as of this encounter
--- NOTE | 2025-01-12 18:18 | Electrocardiogram Report ---
Test Reason : Blood Pressure : */* mmHG Vent. Rate : 75 BPM Atrial Rate : 75 BPM P-R Int : 174 ms QRS Dur : 82 ms QT Int : 368 ms P-R-T Axes : 66 51 65 degrees QTcB Int : 410 ms Normal sinus rhythm Normal ECG When compared with ECG of 20-Jul-2024 20:39, Premature atrial complexes are no longer Present Questionable change in QRS axis Confirmed by Jordan Wood ([id number]) on 01/12/2025 6:17:41 PM Referred By: REFERRED SELF Confirmed By: Jordan Wood
[2025-01-12 19:05] LABS: Potassium 3.9 mmol/L (3.5-5.1)
[2025-01-12] MEDS: ALBUT/IPRATROP 3MG/0.5MG NEB 3 ML VIAL NEB SCH (19:58)
[2025-01-12] MEDS: SODIUM CHLORIDE 0.9% 500 ML IV SCH (20:39)
[2025-01-12] MEDS: guaiFENesin 600 MG TABCR PO SCH (20:42)
[2025-01-12] MEDS: CEFEPIME 2000MG 2,000 MG/20 ML SYR IV SCH (20:45)
[2025-01-12] MEDS: ACETAMINOPHEN 325 MG TAB PO PRN (23:17)
--- OUTSIDE RECORDS SUMMARY | 2025-01-13 00:48 | External Medical Summary | Summary of Care ---
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) Allergies Active Allergy Reactions Criticality Noted Date Comments Varenicline Neuro complications (Please comment) Low 08/23/2019 Vivid nightmares Lisinopril Edema face/lips/tongue High 03/29/2014 Metoprolol Tartrate Edema face/lips/tongue,Other (Please comment) High 05/07/2019 Facial swelling, airway closing up documented as of this encounter (statuses as of 01/12/2025) Medications aspirin 81 MG chewable tabletIndicatio ns:Asymptomatic [...] as of this encounter (statuses as of 01/12/2025) Active Problems Problem Noted Date Diagnosed Date [...] as of this encounter (statuses as of 01/12/2025) Resolved Problems Problem Noted Date Diagnosed Date [...] as of this encounter (statuses as of 01/12/2025) Immunizations Name Administration Dates Next Due Pneumococcal [...] documented in this encounter Nursing Notes * Ashok Larsen RN - 01/12/2025 10:[address] Mancia - patient to be seen in ER for fever, pancytopenia. Give 650mg oral Tylenol today prior to going to ER. This RN gave patient oral Tylenol per orders. documented in this encounter Plan of Treatment Upcoming Encounters Date Type Department Care Team (Late st Contact Info) Description 01/24/2025 8:50 AM EDT Laboratory Laboratory [facility] [place] [address] [place] [phone] Desirae, Lab Scenery [address] [place] [address] 01/24/2025 9:30 AM EDT Office Visit Hematology/Oncology [facility] [place] [address] [place] [phone] Logan Mancia MD [address] [place] [address] 01/24/2025 10:00 AM EDT Hem/Onc Treatment Hematology/Oncology Treatment, [address], [place] [address] Dseirae, Chair 11 Hem Onc Scenery 200 [place] [address] 01/25/2025 9:15 AM EDT Hem/Onc Treatment Hematology/Oncology Treatment, [address], [place] [address] Desirae, Chair 10 Hem Onc Scenery [address] [place], [place] [address] 01/26/2025 10:30 AM EDT Hem/Onc Treatment Hematology/Oncology Treatment, [address], [place] [address] Desirae, Chair 11 Hem Onc Scenery [address] [place] [address] 01/28/2025 10:20 AM EDT Office Visit Family [address] [phone] Rafael Ochoa CRNP [address] [place] [address] [place] [address] 02/15/2025 10:40 AM EDT Office Visit Neurology [facility] [place] 200 [place] [address] Corey Smiley MD [address] [place] [address] 09/02/2025 10:00 AM EST Office Visit Family [address] [phone] Marge Leal MD [address] [place] [address] [place] [address] Scheduled Procedures Name Priority Associated Diagnoses Date/Ti [...] 08/15/2020, 07/07/2019, 07/27/2018, Additional history exists GFR 07/14/2025 01/12/2025, 04/0 12/2024, 11/20/2024, Additional history exists O2 ASSESSMENT COMPLETED IN PAST YEAR FOR COPD 11/17/2025 11/17/2024 CKD PHOS USE SMARTSET 70943 11/20/2025 02/2 10/2024, 11/19/2024, 11/18/2024, Additional history exists CKD HGB USE SMARTSET 23361 01/12/202601/12, 01/12/2025, 01/03/2025, Additional history exists Colonoscopy 10/07/2026 10/07/2023, 05/2024, 07/25/2023, Additional history exists Colorectal Cancer Screening 10/07/2026 DTap/Tdap Vaccines (3 - Td or Tdap) 09/20/2029 09/20/2019, 01/23/2009 Pneumococcal Vaccine: 50+ Years Completed 07/27/2018, 09/24/2016, 01/23/2009 VITAMIN D LEVEL ONCE IN A LIFETIME-USE SMARTSET# 77039 Completed 06/27/2023, 03/01/2019, 03/26/2017, Additional history exists [...] this encounter Medical Devices Implanted Type Area Clock Smith Device Identifier Shelf Expiration Date Model / Serial / Lot Graft Allomax 1.0 6x16cm - [id number] - [id number] Implanted:Qty : 1 on 07/03/2015 by Jere Souza MD at OR [facility] Right: Breast CR BARD : DAVOL 08/28/2019 [id number] / [id number] / [id number] Graft Allomax 1.0 6x16cm - [id number] - [id number] Implanted:Qty : 1 on 07/03/2015 by Jere Souza MD at OR [facility] Left: Breast CR BARD : DAVOL 04/28/2017 [id number] / [id number] / [id number] Implant Breast Li+ 350-2251bc - [id number] Implanted:Qty : 1 on 12/28/2015 by Jere Souza MD at [facility] Left: Breast MENTOR DANYELLE 03/28/2016 350-2251BC / / [id number] Implant Breast Li+ 350-2251bc - [id number] Implanted:Qty : 1 on 12/28/2015 by Jere Souza MD at OR [facility] Right: Breast MENTOR DANYELLE 03/28/2016 350-2251BC / / [id number] Port Implant W8f Poly Cath - [id number] Implanted:Qty : 1 on 01/06/2025 by Renny Titus MD at OR [facility] BARD : PERIPHERAL VASCULAR [id number] 11/26/2025 [id number] / / [id number] documented as of this encounter Visit Diagnoses Diagnosis Chemotherapy induced nausea and vomiting- Primary Nausea with vomiting Dehydration 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) documented in this encounter Administered Medications Inactive Administered Medications - up to 3 most recent administrations Medication Order MAR Action Action Date Dose Rate Site Acetaminophen (Tylenol) tab 650 mg 650 mg, Oral, ONCE, On Fri01/12/25 at 1045, For 1 dose, Maximum of 4 grams (4000 mg) per day.Indications:Chemotherapy induced nausea and vomiting,Dehydration,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
--- OUTSIDE RECORDS SUMMARY | 2025-01-13 00:48 | External Medical Summary | Summary of Care ---
Author Name Unknown Organization [facility] Address [address] [facility] [place] [address] Phone [phone] Care Team Providers Care Software Applications Designer Name Role Phone Marge Leal MD Primary Care Provide r Reason for Visit * Reason Comments Follow Up IV Therapy Encounter Details Date Type Department Care Team (Late st Contact Info) Description 01/12/2025 9:30 AM EDT Office Visit Hematology/Oncology [facility] [place] 200 [facility] [place] [phone] Logan Mancia MD [address] [facility] [place] [address] Neutropenic fever (HCC)* Allergies Active Allergy Reactions Criticality Noted [...] Sign Reading Time Taken Comments Blood Pressure 139/81 01/12/2025 9:38 AM EDT Pulse 98 01/12/2025 9:38 AM EDT Temperature 38.9 °C (102 °F) 01/12/2025 9:38 AM EDT Respiratory Rate - - Oxygen Saturation 98% 01/12/2025 9:38 AM EDT Inhaled Oxygen Concentration - - [...] Progress Notes * Logan Mancia MD - 01/12/2025 9:34 AM EDT Outpatient Consult Note Data Source: Patient, Epic record. Data Source: Patient, Epic record. 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 She was [...] paternal aunt were diagnosed of brain tumor. Interval History: She is complaining generalized weakness, fatigue, episodes of nausea and vomiting and fever. Her temperature today is 102. She denies any sore throat, chest pain, palpitation abdominal pain or distention, bleeding, bruising, nausea, vomiting, dysuria. She had a CBC done today shows WBC count of 0.21, hemoglobin 10.4 and platelet count 51,000. LABS/IMAGING: Results for orders placed or performed in visit on 01/03/25 CBC Result Value Ref Range WBC 2.05 (L) 4.00 - 10.80 K/uL RBC 4.60 3.85 - 5.15 M/uL HGB 12.2 12.0 - 15.3 g/dL HCT 38.4 36.0 - 45.2 % MCV 83.5 81.5 - 97.5 fL MCH 26.5 27.0 - 34.0 pg MCHC 31.8 32.0 - 36.0 g/dL RDW 15.2 11.5 - 15.5 % PLT 181 140 - 400 K/uL MPV 10.3 6.6 - 11.1 fL DIFFERENTIAL, AUTOMATED Result Value Ref Range WBC 2.05 (L) 4.00 - 10.80 K/uL Neutrophils % 51.2 40.0 - 75.0 % Lymphocytes % 36.1 18.0 - 42.0 % Monocytes % 11.2 (H) 1.0 - 11.0 % Eosinophils % 1.5 0.0 - 6.0 % Basophils % 0.0 0.0 - 2.0 % Absolute Neutrophils 1.05 (L) 1.80 - 7.70 K/uL Absolute Lymphocytes 0.74 (L) 1.00 - 4.80 K/ul Absolute Monocytes 0.23 0.00 - 1.10 K/uL Absolute Eosinophils 0.03 0.00 - 0.70 K/uL Absolute Basophils 0.00 0.00 - 0.20 K/uL DIFFERENTIAL, TECHNOLOGIST REVIEW Result Value Ref Range NRBCs Reactive Lymphocytes Present (A) None Seen Giant PLTs Present (A) None Seen REVIEW OF SYSTEMS: General: No Fever, chills, night sweats, HEENT: No change in visual acuity, blurred or double vision. No epistaxis, facial pain, nasal discharge or change in hearing. Denies dysphagia, no muscosal ulceration, or sores noted. Cardiovascular: No chest pain, WRIGHT, or palpitations Respiratory: No shortness of breath, complain of cough, No hemoptysis, or pleuritic chest pain Gastrointestinal: No abdominal pain, nausea, vomiting, diarrhea, rectal pain or bleeding Genitourinary: Denies Hematuria or dysuria Musculoskeletal: No bone pain Psychiatric: No vegetative signs of depression Endocrine: No symptoms of hypothyroidism or hyperglycemia Hematologic: No bleeding or lymph nodes noted As mentioned above, all of the systems were reviewed in full and are unremarkable. Past Medical History: Diagnosis Date Benign neoplasm [...] TABLET BY MOUTH EVERY DAY IN THE [id number] Tablet 1 Atorvastatin Calcium 20 MG Oral [...] taking differently: at bedtime.) 90 Tablet 1 Ondansetron HCl 8 MG Oral Tablet (Zofran) Take 1 Tablet by mouth every 8 hours as needed for Nausea. 30 Tablet 1 Prochlorperazine Maleate 10 MG Oral Tablet (Compazine) Take 1 Tablet by mouth every 6 hours as needed for Nausea. 30 Tablet 0 Loratadine 10 MG Oral Tablet (Claritin) Take 1 tablet daily x5 days starting the last day of chemotherapy (the day before pegfilgrastim injection) 20 Tablet 0 LORazepam 0.5 MG Oral Tablet (Ativan) Take 1 Tablet by mouth at bedtime as needed for Anxiety or Sleep. 30 Tablet 0 No current facility-administered medications for this visit. Social History Tobacco Use Smoking status: Every Day Current packs/day: 1.00 Average packs/day: 1.5 packs/day for 61.3 years (91.8 ttl pk-yrs) Types: Cigarettes Start date: 1962 Passive exposure: Current Smokeless tobacco: Never Vaping Use Vaping status: Never Used Substance Use Topics Alcohol use: Yes Comment: occ. Drug use: No Review of patient's allergies indicates: Allergen Reactions Lisinopril Edema face/lips/tongue Metoprolol Tartrate Edema face/lips/tongue and Other (Please comment) Facial swelling, airway closing up Chantix [Varenicline] Neuro complications (Please comment) Vivid nightmares PHYSICAL EXAMINATION: General Appearance: Healthy appearing patient in no acute distress There were no vitals taken for this visit. Vitals reviewed. HEENT: No oral or pharyngeal masses, ulceration or thrush noted, no sinus tenderness. Neck is supple with no thyromegaly or JVD noted. Lymph Nodes: No lymphadenopathy noted in the occipital, pre and post auricular, cervical, supra andinfraclavicular, axillary, epitrochlear, inguinal, and popliteal region. Lungs/Thorax: Clear to auscultation, no accessory muscles of respiration being used. Heart: Regular rate and rhythm, normal S1, S2 Abdomen: Soft, nontender, bowel sounds present, no [...] Patient has aggressive large neuroendocrine tumor and received 1st cycle of chemotherapy including combination of etoposide and carboplatin on 01/03/2025. She is complaining of generalized weakness, fatigue, nausea, vomiting. She had a fever of 102 today. She is neutropenic and thrombocytopenic. Discussed with the patient and son about diagnosis reviewed all the available blood test result with her. Because of the neutropenic fever, I will send her to the ED for further treatment. I will also give her Tylenol 650 mg now. PLAN: Patient will go to the ED for the management of neutropenic fever. The patient voiced understanding of all of [...] Notes * Olivia Kumari MED ASSIST - 01/12/2025 10:40 AM EDT Pt appeared very weak and color was pale. She was unable to stand to obtain a weight. She was very nauseated and had a temp of 102F she was given Tylenol before being transported to the hospital Her CBC results were of critical value. Her son transported her to the hospital. * Olivia Kumari MED ASSIST - 01/12/2025 9:38 AM EDT Patient identifed by name and birthdate Do you have any concerns about pain management for today's visit? Yes. Patient instructed to discuss pain concerns with provider during the visit today Living Will or Advance Directive for Health Care as noted on the problem list. [facility] is a way you can talk to your provider on line through e-mail. Would you like to sign up? I can activate it for you? ALREADY ACTIVE Filed Vitals: 01/12/25 0938 BP: 139/81 Pulse: 98 Temp: (!) 38.9 °C (102 °F) TempSrc: Tympanic SpO2: 98% Patient was instructed to not get up on the exam table/exam chair until directed and assisted by their provider; patient is to remain seated in the chair/ wheelchair/ exam table/ exam chair for fall prevention and safety reasons. Patient is aware to have assistance to step down off exam table/exam chair with personnel. Patient voiced full comprehension of instructions. documented in this encounter Plan of Treatment Upcoming Encounters Date Type Department Care Team (Late st Contact Info) Description 01/24/2025 8:50 AM EDT Laboratory Laboratory [facility] [place] [facility] [place] [phone] Desirae Lab [place] [address] [place] [address] [address] 01/24/2025 9:30 AM EDT Office Visit Hematology/Oncology [facility] [place] [address] [address] [phone] Logan Mancia MD 200 [facility] [place] [address] 01/24/2025 10:00 AM EDT Hem/Onc Treatment Hematology/Oncology Treatment, [address] [place] [phone] Desirae, Chair 11 Hem Onc [place] [address] [address] 01/25/2025 9:15 AM EDT Hem/Onc Treatment Hematology/Oncology Treatment, [place] 200 [facility] [place] [phone] Desirae, Chair 10 Hem Onc Scenery [facility] [place] [address] [address] 01/26/2025 10:30 AM EDT Hem/Onc Treatment Hematology[facility]Oncology Treatment, [place] [facility] [phone] Desirae, Chair 11 Hem Onc [facility] 200 [facility] [place] [address] 01/28/2025 10:20 AM EDT Office Visit Family Medicine [address] [phone] Rafael Ochoa CRNP [address] [place] [address] [place] [address] 02/15/2025 10:40 AM EDT Office Visit Neurology [facility] 200 [facility] [place] [address] Corey Smiley MD [address] [place], [place] [phone] 09/02/2025 10:00 AM EST Office Visit Family [address] [phone] Marge Leal MD [address] [place] [address] [place] [address] Scheduled Procedures Name Priority Associated Diagnoses Date/Ti [...] COPD 11/17/2025 11/17/2024 CKD PHOS USE SMARTSET 92707 11/20/202510/31, 11/19/2024, 11/18/2024, Additional history exists CKD HGB USE SMARTSET 44023 01/12/202601/12, 01/12/2025, 01/03/2025, Additional history exists Colonoscopy 10/07/2026 10/07/2023, 01/0 05/2024, 07/25/2023, Additional history exists Colorectal Cancer Screening 10/07/2026 DTap/Tdap Vaccines (3 - Td or Tdap) 09/20/2029 09/20/2019, 01/23/2009 Pneumococcal Vaccine: 50+ Years Completed 07/27/2018, 09/24/2016, 01/23/2009 VITAMIN D LEVEL ONCE IN A LIFETIME-USE SMARTSET# 78500 Completed 06/27/2023, 03/01/2019, 03/26/2017, Additional history exists [...] this encounter Medical Devices Implanted Type Area Chancery Clerk Device Identifier Shelf Expiration Date Model / Serial / Lot Graft Allomax 1.0 6x16cm - [id number] - [id number] Implanted:Qty : 1 on 07/03/2015 by Jere Souza MD at OR [facility] Right: Breast CR BARD : DAVOL 08/28/2019 [id number] / [id number] / [id number] Graft Allomax 1.0 6x16cm - [id number] - [id number] Implanted:Qty : 1 on 07/03/2015 by Jere Souza MD at OR [facility] Left: Breast CR BARD : DAVOL 04/28/2017 [id number] / [id number] / [id number] Implant Breast Li+ 350-2251bc - [id number] Implanted:Qty : 1 on 12/28/2015 by Jere Souza MD at OR [facility] Left: Breast MENTOR DANYELLE 03/28/2016 350-2251BC / / [id number] Implant Breast Li+ 350-2251bc - [id number] Implanted:Qty : 1 on 12/28/2015 by Jere Souza MD at OR [facility] Right: Breast MENTOR DANYELLE 03/28/2016 350-2251BC / / [id number] Port Implant W8f Poly Cath - [id number] Implanted:Qty : 1 on 01/06/2025 by Renny Titus MD at OR [facility] BARD : PERIPHERAL VASCULAR [id number] 11/26/2025 [id number] / / [id number] documented as of this encounter Visit Diagnoses Diagnosis Neutropenic fever (HCC)- Primary Neutropenia, unspecified documented in this encounter Advance Directives [...] Directives occurred with: Not Discussed Care Teams Software Applications Designer Relationship Specialty Start Date End Date Marge Leal MD [address] [place] [address] [place] [address] PCP - General Family Medicine 12/31/24 documented as of this encounter
--- OUTSIDE RECORDS SUMMARY | 2025-01-13 00:48 | External Medical Summary | Summary of Care ---
Author Name Unknown Organization [facility] Address [address] [facility] [place] [address] Phone [phone] Care Team Providers Care Home Management Supervisor Name Role Phone Marge Leal MD Primary Care Provide r Encounter Details Date Type Department Care Team (Late st Contact Info) Description 01/12/2025 Orders Only Hematology/Oncology [facility] [place] [address] [place] [phone] Logan Mancia MD [address] [place] [address] Allergies Active Allergy Reactions Criticality Noted Date [...] Description 01/24/2025 8:50 AM EDT Laboratory Laboratory [facility] [place] [address] [place] [phone] Desirae, Lab Scenery [address] [place], [place] [address] 01/24/2025 9:30 AM EDT Office Visit Hematology/Oncology [place] [address] [place] [phone] Logan Mancia MD [address] [place] [address] 01/24/2025 10:00 AM EDT Hem/Onc Treatment Hematology/Oncology Treatment, [address], [place] [phone] Desirae, Chair 11 Hem Onc Scenery 200 [facility] [place] [address] 01/25/2025 9:15 AM EDT Hem/Onc Treatment Hematology/Oncology Treatment, [address], [place] [phone] Desirae, Chair 10 Hem Onc Scenery 200 [facility] [place] [address] 01/26/2025 10:30 AM EDT Hem/Onc Treatment Hematology/Oncology Treatment, [address], [place] [phone] Desirae, Chair 11 Hem Onc [address]enery [address] [place] [address] 01/28/2025 10:20 AM EDT Office Visit Family Medicine [address] [place] [phone] Rafael Ochoa [address] [place] [address] 02/15/2025 10:40 AM EDT Office Visit Neurology [facility] [place] [address] [place] [address] Corey Smiley MD [address] [facility] [address] 09/02/2025 10:00 AM EST Office Visit Family Medicine [address] [place] [phone] Marge Leal MD [address] [place] [address] [place] [address] Scheduled Procedures Name Priority Associated Diagnoses Date/Ti [...] COPD 11/17/2025 11/17/2024 CKD PHOS USE SMARTSET 69317 11/20/2025 0210/2024, 11/19/2024, 11/18/2024, Additional history exists CKD HGB USE SMARTSET 09490 01/12/202601/12, 01/12/2025, 01/03/2025, Additional history exists Colonoscopy 10/07/2026 10/07/2023, 0 05/2024, 07/25/2023, Additional history exists Colorectal Cancer Screening 10/07/2026 DTap/Tdap Vaccines (3 - Td or Tdap) 09/20/2029 09/20/2019, 01/23/2009 Pneumococcal Vaccine: 50+ Years Completed 07/27/2018, 09/24/2016, 01/23/2009 VITAMIN D LEVEL ONCE IN A LIFETIME-USE SMARTSET# 23066 Completed 06/27/2023, 03/01/2019, 03/26/2017, Additional history exists [...] this encounter Medical Devices Implanted Type Area Manager Front Device Identifier Shelf Expiration Date Model / Serial / Lot Graft Allomax 1.0 6x16cm - [id number] - [id number] Implanted:Qty : 1 on 07/03/2015 by Jere Souza MD at OR [facility] [place] Right: Breast CR BARD : DAVOL 08/28/2019 [id number] / [id number] / [id number] Graft Allomax 1.0 6x16cm - [id number] - [id number] Implanted:Qty : 1 on 07/03/2015 by Jere Souza MD at OR [facility] [place] Left: Breast CR BARD : DAVOL 04/28/2017 [id number] / [id number] / [id number] Implant Breast Li+ 350-2251bc - [id number] Implanted:Qty : 1 on 12/28/2015 by Jere Souza MD at OR [facility] [place] Left: Breast MENTOR DANYELLE 03/28/2016 350-2251BC / / [id number] Implant Breast Li+ 350-2251bc - [id number] Implanted:Qty : 1 on 12/28/2015 by Jere Souza MD at OR [facility] Right: Breast MENTOR DANYELLE 03/28/2016 350-2251BC / / [id number] Port Implant W8f Poly Cath - [id number] Implanted:Qty : 1 on 01/06/2025 by Renny Titus MD at OR [facility] BARD : PERIPHERAL VASCULAR [id number] 11/26/2025 [id number] / / [id number] documented as of this encounter Advance Directives [...] Directives occurred with: Not Discussed Care Teams Home Management Supervisor Relationship Specialty Start Date End Date Marge Leal MD [address] [place] [address] [place] [address] PCP - General Family Medicine 12/31/24 documented as of this encounter
--- OUTSIDE RECORDS SUMMARY | 2025-01-13 00:48 | External Medical Summary | Summary of Care ---
Author Name Unknown Organization [facility] Address [address] [facility] [place] [address] Phone [phone] Care Team Providers Care Size Roller Operator Name Role Phone Marge Leal MD Primary Care Provide r Reason for Visit * Reason Onset Date Comments Follow Up 01/07/2025 Carbo/Etop Encounter Details Date Type Department Care Team (Late st Contact Info) Description 01/07/2025 Telephone Hematology/Oncology [facility] [place] 200 [facility] [place] [phone] Logan Mancia MD [address] [place] [address] Follow Up (Carbo/Etop) Allergies Active Allergy Reactions [...] Telephone Encounter - Ashok Larsen RN - 01/12/2025 10:24 AM EDT Pt sent to [facility] ER today by personal vehicle per Dr. Mancia. * Addendum Note - Joaquim Troy RN [...] symptoms worsen overnight. He verbalized understanding. Dr Gertrudis MANTILLA * Telephone Encounter - Joaquim Troy RN [...] Carbo/Etop. Pt also had port placed yesterdayin [place]. No answer, unable to leave VM on machine as box was full. documented in this encounter Plan of Treatment Upcoming Encounters Date Type Department Care Team (Late st Contact Info) Description 01/24/2025 8:50 AM EDT Laboratory Laboratory [facility] [place] [address] [phone] Desirae Lab [place] [address] [phone] 01/24/2025 9:30 AM EDT Office Visit Hematology/Oncology [facility] [place] [address] [phone] Logan Mancia MD 200 [facility] [place] [address] 01/24/2025 10:00 AM EDT Hem/Onc Treatment Hematology/Oncology Treatment, [address] [place] [phone] Desirae, Chair 11 Hem Onc [place] [address] [address] 01/25/2025 9:15 AM EDT Hem/Onc Treatment Hematology/Oncology Treatment, [address] [place] [phone] Desirae, Chair 10 Hem Onc [place] [address] [place] [address] 01/26/2025 10:30 AM EDT Hem/Onc Treatment Hematology/Oncology Treatment, [place] 200 [facility] [place] [phone] Desirae, Chair 11 Hem Onc [facility] 200 [facility] [place] [address] 01/28/2025 10:20 AM EDT Office Visit Family Medicine [address] [phone] Rafael Ochoa CRNP [address] [place] [address] [place] [address] 02/15/2025 10:40 AM EDT Office Visit Neurology [facility] 200 [facility] [place] [address] Corey Smiley MD [address] [place] [address] 09/02/2025 10:00 AM EST Office Visit Family [address] [phone] Marge Leal MD [address] [place] [address] [place] [address] Scheduled Procedures Name Priority Associated Diagnoses Date/Ti [...] COPD 11/17/2025 11/17/2024 CKD PHOS USE SMARTSET 47407 11/20/2025/10/2024, 11/19/2024, 11/18/2024, Additional history exists CKD HGB USE SMARTSET 87367 01/12/202601/12, 01/12/2025, 01/03/2025, Additional history exists Colonoscopy 10/07/2026 10/07/2023, 01/0 05/2024, 07/25/2023, Additional history exists Colorectal Cancer Screening 10/07/2026 DTap/Tdap Vaccines (3 - Td or Tdap) 09/20/2029 09/20/2019, 01/23/2009 Pneumococcal Vaccine: 50+ Years Completed 07/27/2018, 09/24/2016, 01/23/2009 VITAMIN D LEVEL ONCE IN A LIFETIME-USE SMARTSET# 15569 Completed 06/27/2023, 03/01/2019, 03/26/2017, Additional history exists [...] this encounter Medical Devices Implanted Type Area Carpentry Teacher Device Identifier Shelf Expiration Date Model / Serial / Lot Graft Allomax 1.0 6x16cm - [id number] - [id number] Implanted:Qty : 1 on 07/03/2015 by Jere Souza MD at OR [facility] [place] Right: Breast CR BARD : DAVOL 08/28/2019 [id number] / [id number] / [id number] Graft Allomax 1.0 6x16cm - [id number] - [id number] Implanted:Qty : 1 on 07/03/2015 by Jere Souza MD at OR [facility] [place] Left: Breast CR BARD : DAVOL 04/28/2017 [id number] / [id number] / [id number] Implant Breast Li+ 350-2251bc - [id number] Implanted:Qty : 1 on 12/28/2015 by Jere Souza MD at OR [facility] [place] Left: Breast MENTOR DANYELLE 03/28/2016 350-2251BC / / [id number] Implant Breast Li+ 350-2251bc - [id number] Implanted:Qty : 1 on 12/28/2015 by Jere Souza MD at OR [facility] [place] Right: Breast MENTOR DANYELLE 03/28/2016 350-2251BC / / [id number] Port Implant W8f Poly Cath - [id number] Implanted:Qty : 1 on 01/06/2025 by Renny Titus MD at OR [facility] CR BARD : PERIPHERAL VASCULAR [id number] 11/26/2025 [id number] / / [id number] documented as of this encounter Results * MAGNESIUM (01/12/2025 9:20 AM EDT) Magnesium 1.6 1.5 - 2.6 mg/dL 01/12/2025 9:54 AM EDT [facility] 56-02 Blood Venous blood specimen / Unknown Venipuncture / Unknown 01/12/2025 9:20 AM EDT 01/12/2025 9:20 AM EDT Logan Mancia MD LAB BLOOD ORDERABLES Fin al Result [facility] 56-[address] [place] [address] * (ABNORMAL) COMPREHENSIVE METABOLIC PANEL (01/12/2025 9:20 AM EDT) BUN 22(H) 6 - 20 mg/dL 01/12/2025 9:54 AM [facility] 56 CREATININE 1.1(H) 0.5 - 1.0 mg/dL 01/12/2025 9:54 AM T [facility] 56 EGFR 54(L) >=60 mL/min 01/12/2025 9:54 AM [facility] 56 Comment:eGFR is calculated b ased on the CKD-EPI 2020 equation. SODIUM 127(L) 135 - 146 mmol/L 01/12/2025 9:54 AM [facility] 56 Comment:Results rechecked. POTASSIUM 3.6 3.5 - 5.1 mmol/L 01/12/2025 9:54 AM [facility] 56 CHLORIDE 91(L) 98 - 107 mmol/L 01/12/2025 9:54 AM [facility] 56 CO2 23 22 - 32 mmol/L 01/12/2025 9:54 AM [facility] 56 ANION GAP 13 7 - 15 mmol/L 01/12/2025 9:54 AM [facility] 56 GLUCOSE 155(H) 70 - 120 mg/dL 01/12/2025 9:54 AM [facility] 56 Albumin 3.6(L) 3.8 - 5.0 g/dL 01/12/2025 9:54 AM [facility] 56 AST 14 10 - 35 U/L 01/12/2025 9:54 AM [facility] 56 Alkaline Phosphatase 87 35 - 130 U/L 01/12/2025 9:54 AM [facility] 56 Bilirubin, Total 1.0 <=1.2 mg/dL 01/12/2025 9:54 AM [facility] 56 CALCIUM 9.1 8.4 - 10.2 mg/dL 01/12/2025 9:54 AM [facility] 56 Protein 7.3 6.0 - 8.3 g/dL 01/12/2025 9:54 AM [facility] 56-02 ALT 7(L) 10 - 35 U/L 01/12/2025 9:54 AM EDT [facility] 56-02 Blood Venous blood specimen / Unknown Venipuncture / Unknown 01/12/2025 9:20 AM EDT 01/12/2025 9:20 AM EDT Logan Mancia MD LAB BLOOD ORDERABLES Fin al Result [facility] 56-[address] [facility] [address] documented in this encounter Visit Diagnoses Diagnosis [...] Directives occurred with: Not Discussed Care Teams Size Roller Operator Relationship Specialty Start Date End Date Marge Leal MD [address] [place] [address] [place] [address] PCP - General Family Medicine 12/31/24 documented as of this encounter
--- OUTSIDE RECORDS SUMMARY | 2025-01-13 00:49 | External Medical Summary ---
Author Name Unknown Address Unknown Organization K09:[facility] [place] [address] Laboratory Report Ordering Provider Test Date Status MAXX LLOYD 01/12/2025 09:20:55 Final Observation Date Value Abnormality Reference (Units ) Status Nucleated erythrocytes/100 leukocytes [Ratio] in Blood by Automated count 01/12/2025 09:20:55 Final Performing Location [facility] [place] [address]
--- OUTSIDE RECORDS SUMMARY | 2025-01-13 00:49 | External Medical Summary | Summary of Care ---
Author Name Unknown Organization [facility] Address [address] [facility] [place] [address] Phone [phone] Care Team Providers Care Cutter Barrel Drum Name Role Phone Marge Leal MD Primary Care Provide r Reason for Visit * Reason Comments Outpatient Testing Encounter Details Date Type Department Care Team (Late st Contact Info) Description 01/12/2025 8:50 AM EDT Laboratory Laboratory [facility] [place] [address] [place] [phone] [place], Lab Scenery [address] [place] [address] Primary malignant neoplasm of left upper lobe [...] 01/24/2025 8:50 AM EDT Laboratory Laboratory [place] [address] [place] [phone] [place], Lab Scenery [address] [place], [place] [address] 01/24/2025 9:30 AM EDT Office Visit Hematology/Oncology [facility] [place] [address] [place] [phone] Logan Mancia MD [address] [place] [address] 01/24/2025 10:00 AM EDT Hem/Onc Treatment Hematology/Oncology Treatment, [address], [place] [phone] Des[place]ae, Chair 11 Hem Onc [address] [place] [address] 01/25/2025 9:15 AM EDT Hem/Onc Treatment Hematology/Oncology Treatment, [address], [place] [phone] Des[place]ae, Chair 10 Hem Onc [address] [place] [address] 01/26/2025 10:30 AM EDT Hem/Onc Treatment Hematology/Oncology Treatment, [address], [place] [phone] Desirae, Chair 11 Hem Onc [address] [place] [address] 01/28/2025 10:20 AM EDT Office Visit Family Medicine [address] [place] [phone] Rafael Ochoa [address] [place] [address] 02/15/2025 10:40 AM EDT Office Visit Neurology [facility] [place] [address] [place] [address] Corey Smiley MD [address] [place] [address] 09/02/2025 10:00 AM EST Office Visit Family Medicine [address] [place] [phone] Marge Leal MD [address] [place] [address] [place] [address] Scheduled Procedures Name Priority Associated Diagnoses Date/Ti me COLONOSCOPY FLEXIBLE PROXIMA L DIAGNOSTIC Recall Constipation, unspecified constipation type Health Maintenance Due Date Last Done Comments DISCUSS TOBACCO CESSATION (REFER TO SMARTSET #2146) 1950 Depression Screening 1962 Alpha-1 Antitrypsin 1969 [...] COPD 11/17/2025 11/17/2024 CKD PHOS USE SMARTSET 99562 11/20/2025 02/2 10/2024, 11/19/2024, 11/18/2024, Additional history exists CKD HGB USE SMARTSET 09240 01/12/202601/12, 01/12/2025, 01/03/2025, Additional history exists Colonoscopy 10/07/2026 10/07/2023, 05/2024, 07/25/2023, Additional history exists Colorectal Cancer Screening 10/07/2026 DTap/Tdap Vaccines (3 - Td or Tdap) 09/20/2029 09/20/2019, 01/23/2009 Pneumococcal Vaccine: 50+ Years Completed 07/27/2018, 09/24/2016, 01/23/2009 VITAMIN D LEVEL ONCE IN A LIFETIME-USE SMARTSET# 54372 Completed 06/27/2023, 03/01/2019, 03/26/2017, Additional history exists [...] this encounter Medical Devices Implanted Type Area Last Repairer Helper Device Identifier Shelf Expiration Date Model / Serial / Lot Graft Allomax 1.0 6x16cm - [id number] - [id number] Implanted:Qty : 1 on 07/03/2015 by Jere Souza MD [place] [facility] [place]: Breast CR BARD : DAVOL 08/28/2019 [id number] / [id number] / [id number] Graft Allomax 1.0 6x16cm - [id number] - [id number] Implanted:Qty : 1 on 07/03/2015 by Jere Souza MD at [place] [facility] [place] Left: Breast CR BARD : DAVOL 04/28/2017 [id number] / [id number] / [id number] Implant Breast Li+ 350-2251bc - [id number] Implanted:Qty : 1 on 12/28/2015 by Jere Souza MD at [place] [facility] [place] Left: Breast MENTOR DANYELLE 03/28/2016 [id number] / / [id number] Implant Breast Li+ 350-2251bc - [id number] Implanted:Qty : 1 on 12/28/2015 by Jere Souza MD at [place] [facility] [place] Right: Breast MENTOR DANYELLE 03/28/2016 [id number] / / [id number] Port Implant W8f Poly Cath - [id number] Implanted:Qty : 1 on 01/06/2025 by Renny Titus MD at OR [facility] BARD : PERIPHERAL VASCULAR [id number] 11/26/2025 [id number] / / [id number] documented as of this encounter Procedures Procedure Name Priority Date/Time Associated Diagnosis Comments DIFFERENTIAL, AUTOMATED STAT 01/12/2025 9:20 AM EDT 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) COMPREHENSIVE METABOLIC PANEL STAT 01/12/2025 9:20 AM EDT 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) CBC STAT 01/12/2025 9:20 AM EDT 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) CBC STAT 01/12/2025 9:20 AM EDT 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) DIFFERENTIAL, TECHNOLOGIST REVIEW Routine 01/12/2025 9:20 AM EDT 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) MAGNESIUM STAT 01/12/2025 9:20 AM EDT 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) documented in this encounter Results * DIFFERENTIAL, TECHNOLOGIST REVIEW (01/12/2025 9:20 AM EDT) NRBCs 01/12/2025 9:42 AM EDT [facility] Blood Venous blood specimen / Unknown Venipuncture / Unknown 01/12/2025 9:20 AM EDT 01/12/2025 9:20 AM EDT Logan Mancia MD LAB BLOOD ORDERABLES Fin al Result [facility] [address] [place] [address] * DIFFERENTIAL, AUTOMATED (01/12/2025 9:20 AM EDT) Blood Venous blood specimen / Unknown Venipuncture / Unknown 01/12/2025 9:20 AM EDT 01/12/2025 9:20 AM EDT Narrative [facility] 56- - 01/12/2025 9:42 AM EDT WBC < 0.60, WBC differential cancelled. Please call Client Services if differential is required. us Logan Mancia MD LAB BLOOD ORDERABLES Fin al Result [facility] [address] [place] [address] * (ABNORMAL) CBC (01/12/2025 9:20 AM EDT) WBC 0.21(LL) 4.00 - 10.80 K/uL 01/12/2025 9:42 AM EDT [facility] Comment:Results rechecked. RBC 3.90 3.85 - 5.15 M/uL 01/12/2025 9:42 AM EDT [facility] 56 HGB 10.4(L) 12.0 - 15.3 g/dL 01/12/2025 9:42 AM EDT [facility] 56 HCT 31.1(L) 36.0 - 45.2 % 01/12/2025 9:42 AM EDT [facility] 56 MCV 79.7 81.5 - 97.5 fL 01/12/2025 9:42 AM EDT [facility] 56 MCH 26.7 27.0 - 34.0 pg 01/12/2025 9:42 AM EDT [facility] 56 MCHC 33.4 32.0 - 36.0 g/dL 01/12/2025 9:42 AM EDT [facility] 56 RDW 14.2 11.5 - 15.5 % 01/12/2025 9:42 AM EDT [facility] 56 PLT 51(L) 140 - 400 K/uL 01/12/2025 9:42 AM EDT [facility] 56 MPV 10.6 6.6 - 11.1 fL 01/12/2025 9:42 AM EDT [facility] 56 Blood Venous blood specimen / Unknown Venipuncture / Unknown 01/12/2025 9:20 AM EDT 01/12/2025 9:20 AM EDT Logan Mancia MD LAB BLOOD ORDERABLES Fin al Result Performing Organization Address City/[facility]/ZIP Co de Phone Number [facility] [address] [place] [address] * MAGNESIUM (01/12/2025 9:20 AM EDT) Magnesium 1.6 1.5 - 2.6 mg/dL 01/12/2025 9:54 AM EDT [facility] 56 Blood Venous blood specimen / Unknown Venipuncture / Unknown 01/12/2025 9:20 AM EDT 01/12/2025 9:20 AM EDT Logan Mancia MD LAB BLOOD ORDERABLES Fin al Result Performing Organization Address City/[facility] de Phone Number [place] [phone] [place] [address] * (ABNORMAL) COMPREHENSIVE METABOLIC PANEL (01/12/2025 9:20 AM EDT) BUN 22(H) 6 - 20 mg/dL 01/12/2025 9:54 AM EDT [facility] CREATININE 1.1(H) 0.5 - 1.0 mg/dL 01/12/2025 9:54 AM EDT [facility] 56 EGFR 54(L) >=60 mL/min 01/12/2025 9:54 AM EDT [facility] 56 Comment:eGFR is calculated b ased on the CKD-EPI 2020 equation. SODIUM 127(L) 135 - 146 mmol/L 01/12/2025 9:54 AM EDT [facility] 56 Comment:Results rechecked. POTASSIUM 3.6 3.5 - 5.1 mmol/L 01/12/2025 9:54 AM EDT [facility] 56- CHLORIDE 91(L) 98 - 107 mmol/L 01/12/2025 9:54 AM EDT [facility] 56- CO2 23 22 - 32 mmol/L 01/12/2025 9:54 AM EDT [facility] 56- ANION GAP 13 7 - 15 mmol/L 01/12/2025 9:54 AM EDT [facility] 56- GLUCOSE 155(H) 70 - 120 mg/dL 01/12/2025 9:54 AM EDT [facility] 56- Albumin 3.6(L) 3.8 - 5.0 g/dL 01/12/2025 9:54 AM EDT [facility] 56- AST 14 10 - 35 U/L 01/12/2025 9:54 AM EDT [facility] 56- Alkaline Phosphatase 87 35 - 130 U/L 01/12/2025 9:54 AM EDT [facility] 56- Bilirubin, Total 1.0 <=1.2 mg/dL 01/12/2025 9:54 AM EDT [facility] 56- CALCIUM 9.1 8.4 - 10.2 mg/dL 01/12/2025 9:54 AM T [facility] 56- Protein 7.3 6.0 - 8.3 g/dL 01/12/2025 9:54 AM EDT [facility] 56- ALT 7(L) 10 - 35 U/L 01/12/2025 9:54 AM T [facility] 56- Blood Venous blood specimen / Unknown Venipuncture / Unknown 01/12/2025 9:20 AM EDT 01/12/2025 9:20 AM EDT us Logan Mancia MD LAB BLOOD ORDERABLES Fin al Result [facility] 56- [address] [place], [place] [id number] documented in this encounter Visit Diagnoses Diagnosis [...] Directives occurred with: Not Discussed Care Teams Cutter Barrel Drum Relationship Specialty Start Date End Date Marge Leal MD [address] [place] [address] [place] [phone] PCP - General Family Medicine 12/31/24 documented as of this encounter
--- OUTSIDE RECORDS SUMMARY | 2025-01-13 00:49 | External Medical Summary ---
Author Name Unknown Address Unknown Organization K09:[facility] [place] [address] Laboratory Report Ordering Provider Test Date Status MAXX LLOYD 01/12/2025 09:20:55 Final Observation Date Value Abnormality Reference (Units ) Status COMMENT 01/12/2025 09:20:55 WBC < 0.60, WBC differential cancelled. Please call Client Services if differential is required. Final Performing Location [facility] [place] [address]
--- OUTSIDE RECORDS SUMMARY | 2025-01-13 00:49 | External Medical Summary ---
Author Name Unknown Address Unknown Organization K09:[facility] [place] [address] Laboratory Report Ordering Provider Test Date Status MAXX LLOYD 01/12/2025 09:20:55 Final Observation Date Value Abnormality Reference (Units ) Status Magnesium 01/12/2025 09:20:55 1.6 1.5-2.6 (m g/dL) Final Performing Location [facility] [place] [address]
--- OUTSIDE RECORDS SUMMARY | 2025-01-13 00:49 | External Medical Summary | Summary of Care ---
Author Name Unknown Organization [facility] Address [address] [facility] [place] [address] Phone [phone] Care Team Providers Care Production Packager Name Role Phone Marge Leal MD Primary Care Provide r Reason for Visit * Reason Comments Outpatient Testing Encounter Details Date Type Department Care Team (Late st Contact Info) Description 01/12/2025 8:50 AM EDT Laboratory Laboratory [facility] [place] [address] [place] [address] [place], Lab Scenery [address] [place] [address] Primary malignant neoplasm of left upper lobe [...] 01/24/2025 8:50 AM EDT Laboratory Laboratory [place] [address] [address] [place], [place] [phone] [place], Lab Scenery [address] [place] [address] 01/24/2025 9:30 AM EDT Office Visit Hematology/Oncology [facility] [place] [address] [place], [place] [address] Logan Mancia MD [address] [place], [place] [address] 01/24/2025 10:00 AM EDT Hem/Onc Treatment Hematology/Oncology Treatment, [address], [place] [phone] [place], Chair 11 Hem Onc Scenery [address] [place] [address] 01/25/2025 9:15 AM EDT Hem/Onc Treatment Hematology/Oncology Treatment, [address], [place] [address] Desirae, Chair 10 Hem Onc Scenery [address] [place] [address] 01/26/2025 10:30 AM EDT Hem/Onc Treatment Hematology/Oncology Treatment, [address], [place] [phone] Desirae, Chair 11 Hem Onc Scenery [address] [place] [address] 01/28/2025 10:20 AM EDT Office Visit Family Medicine [address] [place] [phone] Rafael Ochoa [address] [place] [address] 02/15/2025 10:40 AM EDT Office Visit Neurology [facility] [place] [address] [place] [address] Corey Smiley MD [address] [place] [address] 09/02/2025 10:00 AM EST Office Visit Family Medicine [address] [place] [phone] Marge Leal MD [address] [place] [address] [place] [address] Scheduled Procedures Name Priority Associated Diagnoses Date/Ti me COLONOSCOPY FLEXIBLE PROXIMA L DIAGNOSTIC Recall Constipation, unspecified constipation type Health Maintenance Due Date Last Done Comments DISCUSS TOBACCO CESSATION (REFER TO SMARTSET #4580) 1950 Depression Screening 1963 Alpha-1 Antitrypsin 1969 [...] COPD 11/17/2025 11/17/2024 CKD PHOS USE SMARTSET 35030 11/20/2025 02/2 10/2024, 11/19/2024, 11/18/2024, Additional history exists CKD HGB USE SMARTSET 43334 01/12/202601/12, 01/12/2025, 01/03/2025, Additional history exists Colonoscopy 10/07/2026 10/07/2023, 05/2024, 07/25/2023, Additional history exists Colorectal Cancer Screening 10/07/2026 DTap/Tdap Vaccines (3 - Td or Tdap) 09/20/2029 09/20/2019, 01/23/2009 Pneumococcal Vaccine: 50+ Years Completed 07/27/2018, 09/24/2016, 01/23/2009 VITAMIN D LEVEL ONCE IN A LIFETIME-USE SMARTSET# 36713 Completed 06/27/2023, 03/01/2019, 03/26/2017, Additional history exists [...] this encounter Medical Devices Implanted Type Area Cupola Melter Device Identifier Shelf Expiration Date Model / Serial / Lot Graft Allomax 1.0 6x16cm - [id number] - [id number] Implanted:Qty : 1 on 07/03/2015 [place]za [place] [facility] [place] Breast CR BARD : DAVOL 08/28/2019 [id number] / [id number] / [id number] Graft Allomax 1.0 6x16cm - [id number] - [id number] Implanted:Qty : 1 on 07/03/2015 by Jere Souza MD [place] [facility] [place]: Breast CR BARD : DAVOL 04/28/2017 [id number] / [id number] / [id number] Implant Breast Li+ 350-2251bc - [id number] Implanted:Qty : 1 on 12/28/2015 by Jere Souza MD [place] [facility] [place]: Breast MENTOR DANYELLE 03/28/2016 350-2251BC / / [id number] Implant Breast Li+ 350-2251bc - [id number] Implanted:Qty : 1 on 12/28/2015 by Jere Souza MD [place] [facility] [place]: Breast MENTOR DANYELLE 03/28/2016 [id number] / / [id number] Port Implant W8f Poly Cath - [id number] Implanted:Qty : 1 on 01/06/2025 by Renny Titus MD at OR [facility] BARD : PERIPHERAL VASCULAR [id number] 11/26/2025 [id number] / / [id number] documented as of this encounter Procedures Procedure [...] AM EDT) NRBCs 01/12/2025 9:42 AM EDT [facility] Blood Venous blood specimen / Unknown Venipuncture / Unknown 01/12/2025 9:20 AM EDT 01/12/2025 9:20 AM EDT Logan Mancia MD LAB BLOOD ORDERABLES Fin al Result [facility] [address] [place] [address] * DIFFERENTIAL, AUTOMATED (01/12/2025 9:20 AM EDT) Blood Venous blood specimen / Unknown Venipuncture / Unknown 01/12/2025 9:20 AM EDT 01/12/2025 9:20 AM EDT Narrative [facility] 56- - 01/12/2025 9:42 AM EDT WBC < 0.60, WBC differential cancelled. Please call Client Services if differential is required. us Logan Mancia MD LAB BLOOD ORDERABLES Fin al Result [facility] [address] [place] [address] * (ABNORMAL) CBC (01/12/2025 9:20 AM EDT) WBC 0.21(LL) 4.00 - 10.80 K/uL 01/12/2025 9:42 AM EDT [facility] Comment:Results rechecked. RBC 3.90 3.85 - 5.15 M/uL 01/12/2025 9:42 AM EDT [facility] 56 HGB 10.4(L) 12.0 - 15.3 g/dL 01/12/2025 9:42 AM EDT [facility] 56 HCT 31.1(L) 36.0 - 45.2 % 01/12/2025 9:42 AM EDT [facility] 56 MCV 79.7 81.5 - 97.5 fL 01/12/2025 9:42 AM EDT [facility] 56 MCH 26.7 27.0 - 34.0 pg 01/12/2025 9:42 AM EDT [facility] 56 MCHC 33.4 32.0 - 36.0 g/dL 01/12/2025 9:42 AM EDT [facility] 56 RDW 14.2 11.5 - 15.5 % 01/12/2025 9:42 AM EDT [facility] 56 PLT 51(L) 140 - 400 K/uL 01/12/2025 9:42 AM EDT [facility] 56 MPV 10.6 6.6 - 11.1 fL 01/12/2025 9:42 AM EDT [facility] 56 Blood Venous blood specimen / Unknown Venipuncture / Unknown 01/12/2025 9:20 AM EDT 01/12/2025 9:20 AM EDT Logan Mancia MD LAB BLOOD ORDERABLES Fin al Result Performing Organization Address City/[facility]/ZIP Co de Phone Number [facility] 56 [address] [place] [address] * MAGNESIUM (01/12/2025 9:20 AM EDT) Magnesium 1.6 1.5 - 2.6 mg/dL 01/12/2025 9:54 AM EDT [facility] 56 Blood Venous blood specimen / Unknown Venipuncture / Unknown 01/12/2025 9:20 AM EDT 01/12/2025 9:20 AM EDT Logan Mancia MD LAB BLOOD ORDERABLES Fin al Result Performing Organization Address City/[facility] de Phone Number [place] [address] [address] [place] [address] * (ABNORMAL) COMPREHENSIVE METABOLIC PANEL (01/12/2025 9:20 AM EDT) BUN 22(H) 6 - 20 mg/dL 01/12/2025 9:54 AM EDT [facility] CREATININE 1.1(H) 0.5 - 1.0 mg/dL 01/12/2025 9:54 AM EDT [facility] 56 EGFR 54(L) >=60 mL/min 01/12/2025 9:54 AM EDT [facility] 56 Comment:eGFR is calculated b ased on the CKD-EPI 2020 equation. SODIUM 127(L) 135 - 146 mmol/L 01/12/2025 9:54 AM EDT [facility] 56 Comment:Results rechecked. POTASSIUM 3.6 3.5 - 5.1 mmol/L 01/12/2025 9:54 AM EDT [facility] 56- CHLORIDE 91(L) 98 - 107 mmol/L 01/12/2025 9:54 AM EDT [facility] 56- CO2 23 22 - 32 mmol/L 01/12/2025 9:54 AM EDT [facility] 56- ANION GAP 13 7 - 15 mmol/L 01/12/2025 9:54 AM EDT [facility] 56- GLUCOSE 155(H) 70 - 120 mg/dL 01/12/2025 9:54 AM EDT [facility] 56- Albumin 3.6(L) 3.8 - 5.0 g/dL 01/12/2025 9:54 AM EDT [facility] 56- AST 14 10 - 35 U/L 01/12/2025 9:54 AM EDT [facility] 56- Alkaline Phosphatase 87 35 - 130 U/L 01/12/2025 9:54 AM EDT [facility] 56- Bilirubin, Total 1.0 <=1.2 mg/dL 01/12/2025 9:54 AM EDT [facility] 56- CALCIUM 9.1 8.4 - 10.2 mg/dL 01/12/2025 9:54 AM T [facility] 56- Protein 7.3 6.0 - 8.3 g/dL 01/12/2025 9:54 AM EDT [facility] 56- ALT 7(L) 10 - 35 U/L 01/12/2025 9:54 AM T [facility] 56- Blood Venous blood specimen / Unknown Venipuncture / Unknown 01/12/2025 9:20 AM EDT 01/12/2025 9:20 AM EDT us Logan Mancia MD LAB BLOOD ORDERABLES Fin al Result [facility] 56- [address] [place], [place] [phone] documented in this encounter Visit Diagnoses Diagnosis [...] Directives occurred with: Not Discussed Care Teams Production Packager Relationship Specialty Start Date End Date Marge Leal MD [address] [place] [address] [place] [phone] PCP - General Family Medicine 12/31/24 documented as of this encounter
--- OUTSIDE RECORDS SUMMARY | 2025-01-13 00:49 | External Medical Summary | Summary of Care ---
Author Name Unknown Organization [facility] Address [address] [facility] [place] [address] Phone [phone] Care Team Providers Care Smoked Meat Preparer Name Role Phone Marge Leal MD Primary Care Provide r Reason for Visit * Reason Comments Follow Up IV Therapy Encounter Details Date Type Department Care Team (Late st Contact Info) Description 01/12/2025 9:30 AM EDT Office Visit Hematology/Oncology [facility] [place] [address] [place] [phone] Logan Mancia MD [address] [facility] [place] [address] Neutropenic fever (HCC)* Allergies Active Allergy Reactions [...] Epic record. 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 She was [...] TABLET BY MOUTH EVERY DAY IN THE HJOGTUE83 Tablet 1 Atorvastatin Calcium 20 MG Oral [...] were addressed in an apparently satisfactory manner. oLgan Mancia MD (This note was completed using [...] Description 01/24/2025 8:50 AM EDT Laboratory Laboratory [facility] [place] [facility] [place] [phone] Desirae Lab [place] [address] [place] [address] [address] 01/24/2025 9:30 AM EDT Office Visit Hematology/Oncology [facility] [place] [address] [phone] Logan Mancia MD [address] [facility] [place] [address] 01/24/2025 10:00 AM EDT Hem/Onc Treatment Hematology/Oncology Treatment, [address] [place] [phone] Desirae, Chair 11 Hem Onc [place] [address] [address] [address] 01/25/2025 9:15 AM EDT Hem/Onc Treatment Hematology/Oncology Treatment, [place] 200 [facility] [place] [phone] Desirae, Chair 10 Hem Onc Scenery [facility] [place] [address] [address] 01/26/2025 10:30 AM EDT Hem/Onc Treatment [facility]ematology/Oncology Treatment, [place] [facility] [phone] [place]irae, Chair 11 Hem Onc [facility] [address] [facility] [place] [address] 01/28/2025 10:20 AM EDT Office Visit Family Medicine [address] [phone] Rafael Ochoa CRNP [address] [place] [address] [place] [address] 02/15/2025 10:40 AM EDT Office Visit Neurology [facility] [address] [facility] [place] [address] Corey Smiley MD [address] [place], [place] [phone] 09/02/2025 10:00 AM EST Office Visit Family [address] [phone] Marge Leal MD [address] [place] [address] [place] [address] Scheduled Procedures Name Priority Associated Diagnoses Date/Ti [...] COPD 11/17/2025 11/17/2024 CKD PHOS USE SMARTSET 97963 11/20/202510/31, 11/19/2024, 11/18/2024, Additional history exists CKD HGB USE SMARTSET 09343 01/12/202601/12, 01/12/2025, 01/03/2025, Additional history exists Colonoscopy 10/07/2026 10/07/2023, 01/0 05/2024, 07/25/2023, Additional history exists Colorectal Cancer Screening 10/07/2026 DTap/Tdap Vaccines (3 - Td or Tdap) 09/20/2029 09/20/2019, 01/23/2009 Pneumococcal Vaccine: 50+ Years Completed 07/27/2018, 09/24/2016, 01/23/2009 VITAMIN D LEVEL ONCE IN A LIFETIME-USE SMARTSET# 09670 Completed 06/27/2023, 03/01/2019, 03/26/2017, Additional history exists [...] this encounter Medical Devices Implanted Type Area Appeals Representative Device Identifier Shelf Expiration Date Model / Serial / Lot Graft Allomax 1.0 6x16cm - [id number] - [id number] Implanted:Qty : 1 [place] 07/03/[place] [facility] [place] Breast CR BARD : DAVOL 08/28/2019 [id number] / [id number] / [id number] Graft Allomax 1.0 6x16cm - [id number] - [id number] Implanted:Qty : 1 on 07/03/2015 [place] [facility] [place] Breast CR BARD : DAVOL 04/28/2017 [id number] / [id number] / [id number] Implant Breast Li+ 350-2251bc - [id number] Implanted:Qty : 1 on 12/28/2015 [place] [facility] [place]: Breast MENTOR DANYELLE 03/28/2016 [id number] / / [id number] Implant Breast Li+ 350-2251bc - [id number] Implanted:Qty : 1 on 12/28/2015 [place] [facility] [place]: Breast MENTOR DANYELLE 03/28/2016 [id number] / / [id number] Port Implant W8f Poly Cath - [id number] Implanted:Qty : 1 on 01/06/2025 by Renny Titus MD at OR [facility] BARD : PERIPHERAL VASCULAR [id number] 11/26/2025 [id number] / / [id number] documented as of this encounter Visit Diagnoses [...] Directives occurred with: Not Discussed Care Teams Smoked Meat Preparer Relationship Specialty Start Date End Date Marge Leal MD [address] [place] [address] [place] [address] PCP - General Family Medicine 12/31/24 documented as of this encounter
--- OUTSIDE RECORDS SUMMARY | 2025-01-13 00:49 | External Medical Summary ---
Author Name Unknown Address Unknown Organization K09:[facility] [place] [address] Laboratory Report Ordering Provider Test Date Status MAXX LLOYD 01/12/2025 09:20:55 Final Observation Date Value Abnormality Reference (Units ) Status WBC, Total 01/12/2025 09:20:55 0.21 Below lower panic limits 4.00-10.80 (K/uL) Final Results rechecked.
RBC 01/12/2025 09:20:55 3.90 3.85-5.15 (M/uL) Final Hemoglobin 01/12/2025 09:20:55 10.4 Below low normal 12 .0-15.3 (g/dL) Final HCT 01/12/2025 09:20:55 31.1 Below low normal 36. 0-45.2 (%) Final MCV 01/12/2025 09:20:55 79.7 81.5-97.5 (fL) Final MCH 01/12/2025 09:20:55 26.7 27.0-34.0 (pg) Final MCHC 01/12/2025 09:20:55 33.4 32.0-36.0 (g/dL) Final RDW 01/12/2025 09:20:55 14.2 11.5-15.5 (%) Final Platelets 01/12/2025 09:20:55 51 Below low normal 140 -400 (K/uL) Final MPV 01/12/2025 09:20:55 10.6 6.6-11.1 ( fL) Final Performing Location [facility] [place] [address]
--- OUTSIDE RECORDS SUMMARY | 2025-01-13 00:49 | External Medical Summary | Summary of Care ---
Author Name Unknown Organization [facility] Address [address] [facility] [place] [address] Phone [phone] Care Team Providers Care Herbicide Sprayer Name Role Phone Marge Leal MD Primary Care Provide r Reason for Visit * Reason Comments Outpatient Testing Encounter Details Date Type Department Care Team (Late st Contact Info) Description 01/12/2025 8:50 AM EDT Laboratory Laboratory [facility] [place] [address] [place] [phone] [place], Lab Scenery [address] [place] [address] Primary malignant neoplasm of left upper lobe [...] 01/24/2025 8:50 AM EDT Laboratory Laboratory [place] [address] [place] [phone] Des[place], Lab Scenery [address] [place] [address] 01/24/2025 9:30 AM EDT Office Visit Hematology/Oncology [facility] [place] [address] [place] [phone] Logan Mancia MD [address] [place] [address] 01/24/2025 10:00 AM EDT Hem/Onc Treatment Hematology/Oncology Treatment, [address], [place] [phone] Desirae, Chair 11 Hem Onc Scenery [address] [place] [address] 01/25/2025 9:15 AM EDT Hem/Onc Treatment Hematology/Oncology Treatment, [address], [place] [phone] Desirae, Chair 10 Hem Onc [address] [place] [address] 01/26/2025 10:30 AM EDT Hem/Onc Treatment Hematology/Oncology Treatment, [address], [place] [phone] Desirae, Chair 11 Hem Onc Scenery [address] [place] [address] 01/28/2025 10:20 AM EDT Office Visit Family Medicine [address] [place] [phone] Rafael Ochoa [address] [place] [address] 02/15/2025 10:40 AM EDT Office Visit Neurology [facility] [place] [address] [place] [address] Corey Smiley MD [address] [place] [address] 09/02/2025 10:00 AM EST Office Visit Family Medicine [address] [place] [phone] Marge Leal MD [address] [place] [address] [place] [address] Scheduled Procedures Name Priority Associated Diagnoses Date/Ti me COLONOSCOPY FLEXIBLE PROXIMA L DIAGNOSTIC Recall Constipation, unspecified constipation type Health Maintenance Due Date Last Done Comments DISCUSS TOBACCO CESSATION (REFER TO SMARTSET #8206) 1950 Depression Screening 1962 Alpha-1 Antitrypsin 1969 [...] COPD 11/17/2025 11/17/2024 CKD PHOS USE SMARTSET 66280 11/20/2025 02/2 10/2024, 11/19/2024, 11/18/2024, Additional history exists CKD HGB USE SMARTSET 62856 01/12/202601/12, 01/12/2025, 01/03/2025, Additional history exists Colonoscopy 10/07/2026 10/07/2023, 05/2024, 07/25/2023, Additional history exists Colorectal Cancer Screening 10/07/2026 DTap/Tdap Vaccines (3 - Td or Tdap) 09/20/2029 09/20/2019, 01/23/2009 Pneumococcal Vaccine: 50+ Years Completed 07/27/2018, 09/24/2016, 01/23/2009 VITAMIN D LEVEL ONCE IN A LIFETIME-USE SMARTSET# 69517 Completed 06/27/2023, 03/01/2019, 03/26/2017, Additional history exists [...] this encounter Medical Devices Implanted Type Area Laborer [employer] Bakery Device Identifier Shelf Expiration Date Model / Serial / Lot Graft Allomax 1.0 6x16cm - [id number] - [id number] Implanted:Qty : 1 on 07/03/2015 [place] Sou[place] [facility] [place] Breast CR BARD : DAVOL 08/28/2019 [id number] / [id number] / [id number] Graft Allomax 1.0 6x16cm - [id number] - [id number] Implanted:Qty : 1 on 07/03/2015 by Jere Souza MD [place] [facility] [place]: Breast CR BARD : DAVOL 04/28/2017 [id number] / [id number] / [id number] Implant Breast Li+ 350-2251bc - [id number] Implanted:Qty : 1 on 12/28/2015 by Jere Souza MD [place] [facility] [place]: Breast MENTOR DANYELLE 03/28/2016 350-2251BC / / [id number] Implant Breast Li+ 350-2251bc - [id number] Implanted:Qty : 1 on 12/28/2015 by Jere Souza MD [place] [facility] [place]: Breast MENTOR DANYELLE 03/28/2016 350-2251BC / / [id number] Port Implant W8f Poly Cath - [id number] Implanted:Qty : 1 on 01/06/2025 by Renny Titus MD at OR [facility] BARD : PERIPHERAL VASCULAR [id number] 11/26/2025 [id number] / / [id number] documented as of this encounter Procedures Procedure [...] AM EDT) NRBCs 01/12/2025 9:42 AM EDT [facility] Blood Venous blood specimen / Unknown Venipuncture / Unknown 01/12/2025 9:20 AM EDT 01/12/2025 9:20 AM EDT Logan Mancia MD LAB BLOOD ORDERABLES Fin al Result [facility] [address] [place] [address] * DIFFERENTIAL, AUTOMATED (01/12/2025 9:20 AM EDT) Blood Venous blood specimen / Unknown Venipuncture / Unknown 01/12/2025 9:20 AM EDT 01/12/2025 9:20 AM EDT Narrative [facility] 56- - 01/12/2025 9:42 AM EDT WBC < 0.60, WBC differential cancelled. Please call Client Services if differential is required. us Logan Mancia MD LAB BLOOD ORDERABLES Fin al Result [facility] [address] [place] [address] * (ABNORMAL) CBC (01/12/2025 9:20 AM EDT) WBC 0.21(LL) 4.00 - 10.80 K/uL 01/12/2025 9:42 AM EDT [facility] Comment:Results rechecked. RBC 3.90 3.85 - 5.15 M/uL 01/12/2025 9:42 AM EDT [facility] 56 HGB 10.4(L) 12.0 - 15.3 g/dL 01/12/2025 9:42 AM EDT [facility] 56 HCT 31.1(L) 36.0 - 45.2 % 01/12/2025 9:42 AM EDT [facility] 56 MCV 79.7 81.5 - 97.5 fL 01/12/2025 9:42 AM EDT [facility] 56 MCH 26.7 27.0 - 34.0 pg 01/12/2025 9:42 AM EDT [facility] 56 MCHC 33.4 32.0 - 36.0 g/dL 01/12/2025 9:42 AM EDT [facility] 56 RDW 14.2 11.5 - 15.5 % 01/12/2025 9:42 AM EDT [facility] 56 PLT 51(L) 140 - 400 K/uL 01/12/2025 9:42 AM EDT [facility] 56 MPV 10.6 6.6 - 11.1 fL 01/12/2025 9:42 AM EDT [facility] 56 Blood Venous blood specimen / Unknown Venipuncture / Unknown 01/12/2025 9:20 AM EDT 01/12/2025 9:20 AM EDT Logan Mancia MD LAB BLOOD ORDERABLES Fin al Result Performing Organization Address City/[facility]/ZIP Co de Phone Number [facility] 56 [address] [place] [address] * MAGNESIUM (01/12/2025 9:20 AM EDT) Magnesium 1.6 1.5 - 2.6 mg/dL 01/12/2025 9:54 AM EDT [facility] 56 Blood Venous blood specimen / Unknown Venipuncture / Unknown 01/12/2025 9:20 AM EDT 01/12/2025 9:20 AM EDT Logan Mancia MD LAB BLOOD ORDERABLES Fin al Result Performing Organization Address City/[facility] de Phone Number [place] [address] [address] [place] [address] * (ABNORMAL) COMPREHENSIVE METABOLIC PANEL (01/12/2025 9:20 AM EDT) BUN 22(H) 6 - 20 mg/dL 01/12/2025 9:54 AM EDT [facility] CREATININE 1.1(H) 0.5 - 1.0 mg/dL 01/12/2025 9:54 AM EDT [facility] 56 EGFR 54(L) >=60 mL/min 01/12/2025 9:54 AM EDT [facility] 56 Comment:eGFR is calculated b ased on the CKD-EPI 2020 equation. SODIUM 127(L) 135 - 146 mmol/L 01/12/2025 9:54 AM EDT [facility] 56 Comment:Results rechecked. POTASSIUM 3.6 3.5 - 5.1 mmol/L 01/12/2025 9:54 AM EDT [facility] 56- CHLORIDE 91(L) 98 - 107 mmol/L 01/12/2025 9:54 AM EDT [facility] 56- CO2 23 22 - 32 mmol/L 01/12/2025 9:54 AM EDT [facility] 56- ANION GAP 13 7 - 15 mmol/L 01/12/2025 9:54 AM EDT [facility] 56- GLUCOSE 155(H) 70 - 120 mg/dL 01/12/2025 9:54 AM EDT [facility] 56- Albumin 3.6(L) 3.8 - 5.0 g/dL 01/12/2025 9:54 AM EDT [facility] 56- AST 14 10 - 35 U/L 01/12/2025 9:54 AM EDT [facility] 56- Alkaline Phosphatase 87 35 - 130 U/L 01/12/2025 9:54 AM EDT [facility] 56- Bilirubin, Total 1.0 <=1.2 mg/dL 01/12/2025 9:54 AM EDT [facility] 56- CALCIUM 9.1 8.4 - 10.2 mg/dL 01/12/2025 9:54 AM T [facility] 56- Protein 7.3 6.0 - 8.3 g/dL 01/12/2025 9:54 AM EDT [facility] 56- ALT 7(L) 10 - 35 U/L 01/12/2025 9:54 AM T [facility] 56- Blood Venous blood specimen / Unknown Venipuncture / Unknown 01/12/2025 9:20 AM EDT 01/12/2025 9:20 AM EDT us Logan Mancia MD LAB BLOOD ORDERABLES Fin al Result [facility] [address]- [address] [place], [place] [id number] documented in this encounter Visit Diagnoses Diagnosis [...] Directives occurred with: Not Discussed Care Teams Herbicide Sprayer Relationship Specialty Start Date End Date Marge Leal MD [address] [place] [address] [place] [id number] PCP - General Family Medicine 12/31/24 documented as of this encounter
[2025-01-13] MEDS: VANCOMYCIN HCL 1,250 MG in SODIUM CHLORIDE 0.9% 250 ML IV SCH (05:42)
[2025-01-13 07:07] LABS: Albumin Level 2.9 gm/dl (3.4-5.0); Bilirubin,Total 0.7 mg/dl (0.2-1.0); Magnesium 1.7 mg/dl (1.7-2.4); Potassium 3.4 mmol/L (3.5-5.1)
[2025-01-13 07:11] LABS: BUN Creatinine Ratio 23.3 (10-20); Creatinine Clr Calc Pharmacy 60.7 ml/min; Globulin 2.8 gm/dl (2.5-4.0); Total Protein 5.7 gm/dl (6.0-8.3)
[2025-01-13 07:26] LABS: Hematocrit (blood only) 23.3 % (37.0-47.0); Mean Corpuscular Hemoglobin 26.6 pg (25.0-34.0); Mean Corpuscular Hgb Conc 34.3 g/dL (32.0-36.0); Mean Corpuscular Volume 77.4 fL (80.0-100.0); RDW Coefficient of Variation 14.2 % (11.5-14.5); RDW Standard Deviation 40.6 fL (36.4-46.3); Red Blood Count 3.01 M/uL (4.20-5.40)
[2025-01-13 07:45] LABS: Neutrophils # (auto) < 0.50 K/uL (1.40-6.50); White Blood Count 0.15 K/ul (4.8-10.8)
--- NOTE | 2025-01-13 07:46 | Hospitalist Progress Note ---
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 Acute Hypoxic Respiratory Failure Pneumonia Human Metapneumovirus In the ED, patient was hypoxic on room air at 88%, requiring 2 L of oxygen via nasal cannula. Afebrile and hemodynamically stable. Pancytopenic RVP positive for human metapneumovirus. CXR is suggestive of a right midlung pneumonia. Procalcitonin elevated Patient was given IV cefepime, IV Vanco, IVF in the ED Continue Vanco and cefepime, doxycycline CT chest noting infectious or inflammatory infiltrates, adenopathy, 7mm solid nodule in RLL and 2.5cm middle mediastinal mass. The radiologist also noted the following: "...I would advise repeat CT follow-up in the near future with contrast enhancement to better evaluate the adenopathy, the characteristics of the right lower lobe nodule, and the characteristics of the mediastinal mass. Following that, would recommend a follow-up chest CT in 3-6 months to reevaluate the right lung nodule and to reassess the adenopathy and the mediastinal mass..." Pulmonary toilet with nebs, Mucinex, incentive spirometer, flutter valve Blood cultures NGTD Oxygen supplementation as needed Continue to monitor Pancytopenia Anemia Thrombocytopenia In setting of chemotherapy Monitor H/H, transfuse as needed for hgb <7 Monitor platelets, transfuse for platelets <10K Hematology consult while inpatient, appreciate recs Pt follows with Dr Mancia from [facility] Oncology Continue to monitor Hyponatremia Sodium 128 to 127 Received IV fluids Urine electrolytes, urine osm Nephrology consulted, appreciate recs Hypomagnesemia Hypokalemia Replete as needed Hyperglycemia AM hgba1c Elevated Liver Enzymes elevated t bili and direct bili levels Improving Acute Kidney Injury Cr elevated at 1.2 on admission IV Fluids Currently resolved Hypertension Home amlodipine and HCTZ currently on hold Hyperlipidemia Continue statin Continue other home meds as ordered Diet: Regular, FR 1800ml DVT prophylaxis: SCDs in setting of thrombocytopenia Dispo: PT/OT for further recs once medically stable Admission and Anticipated Discharge Date Admission Date: January 12, 2025 Subjective pt was seen in the AM She stated that she did not feel good Notes she is a current smoker but declining a nicotine patch Review of Systems Review of Systems: All systems reviewed & are unremarkable except as noted in Subjective Physical Exam Physical Exam: General: Alert, oriented. NC in nares, appears sick Psych: Appropriate mood and affect HEENT: NC/AT Chest: noted port in place CV: RRR Resp: Breath sounds clear bilaterally, no increased effort of breathing Abdomen:Soft, nontender Extremities: No edema in lower extremities bilaterally. Results & Data Results & Data Vital Signs (Past 12 Hours) Vital Signs Temp Pulse Pulse Resp BP Pulse Ox O2 Del Method 01/13/25 07:32 66 01/13/25 07:25 36.7 C 69 19 101/59 L 93 Nasal Cannula 01/13/25 07:14 75 19 96 Nasal Cannula 01/13/25 03:27 37.0 C 67 19 121/68 96 Room Air 01/13/25 00:31 37.7 C H 01/12/25 23:16 37.9 C H 71 20 129/69 95 Nasal Cannula 01/12/25 21:45 76 01/12/25 20:00 Nasal Cannula 01/12/25 19:58 72 19 98 Nasal Cannula O2 Flow Rate 01/13/25 07:32 01/13/25 07:25 2 01/13/25 07:14 3 01/13/25 03:27 4 01/13/25 00:31 01/12/25 23:16 01/12/25 21:45 01/12/25 20:00 3 01/12/25 19:58 3
[2025-01-13 07:47] LABS: Mean Platelet Volume 11.3 fL (9.4-12.4); Platelet Count 26 K/uL (130-400)
[2025-01-13] MEDS: POTASSIUM CHLORIDE CRTAB 20 MEQ TABCR PO STA (08:50)
[2025-01-13] MEDS: oxyCODONE HCL IR 5 MG TAB (IMMEDIATE RELEASE) PO PRN (09:16)
[2025-01-13] MEDS: LIDOCAINE 5% 1 PATCH TD SCH (10:26)
--- NOTE | 2025-01-13 14:10 | Nephrology Consultation ---
Date of Consultation January 13, 2025 Assessment & Plan (1) Hyponatremia: stable mild -moderate hyponatremia ? related to saline plus/minus hctz and from poor po intake/ pneumonia. doubt it's hypovolemic as she's has 2L NS w/ worsening in sodium -check serum /urine studies > so ordered for now to eval tonicity but anticipate this will be hypotonic hyponatremia SIADH-like presenting sodium 128 on 01/12; dropped to 01/13 to 127. admission UA w/ SG extremely concentrated from poor po intake all around -f/u sodium studies >maintain eukalemia > had 4 x 10 mEq IV doses yesterday adn 20 mEq po x 1 today of K; OK to replete K IV and will give another 60 mEq IV in 20 mEq riders >>limitl sNa is no more than 133 tomorrow am >> for now focus with that will be in treatment of pneumonia, K repletion, work up Other conventional treatments will be challenging for her right now w/ dysphagia > including urea (difficult to swallow) and lasix (lowers K further) (2) Hypomagnesemia: last level 1.7; some lability > was 1.4 on presentation >recheck mag daily (3) Hypokalemia: as above (4) Neutropenic fever: per primary service > on cefepime, vanco, doxy History of Present Illness Reason for Consultation: hyponatremia Requesting Physician: Dr Driscoll Attending Physician: Etelvina Driscoll MD History of Present Illness 74 y/o F whom I'm asked to see for hyponatremia was admitted here yesterday for neutropenic fever (to 102 day of admission) and human metapneumovirus PNA. 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 Endorses worsening of chronic cough for few days [employer]ANCE [employer]. Also after CTX dosing, feels generalized weakness, nausea/vomiting, poor appetite adn poor po intake. No D, no abdominal pain, coffee ground- or hematemesis. notes significant fatigue and tachypnea/ exertional dyspnea w/o chest pain/palpitations. No lightheadedness, dizziness, diaphoresis, syncopal events, new/worrisome urinary concerns. no edema. since the chemo earlier this month and is currently relearning how to swallow "so that it's not as painful." In the ED, RA sats were 88%l patient was hypoxic on room air at 88%, currently requiring 2 L of oxygen via nasal cannula. Afebrile since arrival. Labs showed WBC 0.14K, Hgb 10.2, platelets 45K, Na+ 128, K+ 3.3, creatinine 1.2, Mg +1.4. RVP positive for human metapneumovirus. CXR is suggestive of a right midlung pneumonia. Patient was given IV cefepime, doxy, vanco. presenting sNa 124, up to 127 today; on regular diet with 1.8L FR. Presenting UA w/ bilirubin, blood, LE, granular casts. No urine studies for hyponatremia. Allergies Allergy/AdvReac Type Severity Reaction Status Date / Time lisinopril Allergy Severe ANAPHYLAXIS Verified 01/12/25 12:36 metoprolol Allergy Intermediate Anaphylaxis Verified 01/12/25 12:36 Home Medications Medication Instructions Recorded Confirmed Type amlodipine 10 mg tablet 10 mg PO HS 07/09/19 01/12/25 History atorvastatin 20 mg tablet 20 mg PO HS 07/09/19 01/12/25 History cholecalciferol (vitamin D3) 25 1,000 unit PO HS 07/09/19 01/12/25 History mcg (1,000 unit) capsule (Vitamin D3) aspirin 81 mg tablet 81 mg PO DAILY 01/12/25 01/12/25 History hydrochlorothiazide 25 mg tablet 25 mg PO QAM 01/12/25 01/12/25 History loratadine 10 mg tablet 10 mg PO DAILY 01/12/25 01/12/25 History lorazepam 0.5 mg tablet 0.5 mg PO HS PRN Anxiety/Sleep 01/12/25 01/12/25 History ondansetron HCl 8 mg tablet 8 mg PO Q8H PRN Nausea 01/12/25 01/12/25 History prochlorperazine maleate 10 mg 10 mg PO Q6H PRN Nausea 01/12/25 01/12/25 History tablet Patient History Medical History (Updated 01/12/25 @ 14:13 by MONO Jimenez) 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 She was first diagnosed in 1984 where she had a partial mastectomy and radiation therapy. She had a mammogram in 2014 showing a possible recurrence. She then had bilateral mastectomies with reconstruction. Pathology showing invasive carcinoma grade 3, ER/CO negative and HER2 Alexander positive. She was treated with the 1st cycles of TCH and 1 year of Herceptin which she completed on 07/23/2016. Nausea and vomiting after administration of anesthetic agent Osteoarthritis GERD (gastroesophageal reflux disease) Peripheral neuropathy r/t chemotherapy Migraine Hyperlipidemia Chronic obstructive pulmonary disease possible -- current testing Surgical History (Updated 01/12/25 @ 14:13 by MONO Jimenez) History of lobectomy of lung SAURAV for neuroendocrine tumor History of cataract surgery History of breast augmentation 2014 - implants removed d/t infection. Patient reports minimal implants. Hx of lumpectomy Left History of herniorrhaphy umbilical History of colonoscopy Family History Other Cancer Heart disease Hypertension Social History Smoking Status: Former smoker Tobacco Type: Cigarettes Cigarettes Per Day: 20 x 54 years; Second Hand Exposure: Yes; Do You Dip or Chew Tobacco: No; Hx Alcohol Use: No Hx Substance Use: No Preferred Language: Setswana Communication Ability: Effective Mat Gauger Required: No Beliefs That Will Affect Care: None Current Living Situation: Family Current Living Situation Comment: lives with son Feels Safe at Home: Yes Assistive Devices: Denture - Upper, Denture - Lower and Glasses Review of Systems 2 Review of Systems: All systems reviewed & are unremarkable except as noted in HPI & below Physical Exam 2 Constitutional: well developed, well nourished, + acute distress (mild with breathing/coughing/fatigue) and cooperative Eyes: EOM intact bilaterally ENMT: Mouth: + dry oral mucous membranes Respiratory: + labored breathing (slight), + cough, a ble to speak in complete sentences (but dyspneic after a few sentences) and + tachypneic; expiratory phase not prolonged and no paradoxical thoraco-abdominal movemnt A uscultation: + diminished lung sounds Gastrointestinal (Abdomen): Inspection/Auscultation: normal bowel sounds P ercussion/Palpation: abdomen soft; abdomen nontender Musculoskeletal: Extremities: strength 5/5 throughout Skin: no rashes, warm and dry Neurologic: morris, fluent speech, no tremor Psychiatric: Orientation: alert and oriented x 3 Results & Data Vital Signs (Past 12 Hours) Vital Signs Temp Pulse Pulse Resp BP Pulse Ox O2 Del Method 01/13/25 11:15 Nasal Cannula 01/13/25 11:06 36.7 C 68 20 124/65 96 Nasal Cannula 01/13/25 07:32 66 01/13/25 07:25 36.7 C 69 19 101/59 L 93 Nasal Cannula 01/13/25 07:14 75 19 96 Nasal Cannula 01/13/25 03:27 37.0 C 67 19 121/68 96 Room Air O2 Flow Rate 01/13/25 11:15 2 01/13/25 11:06 2 01/13/25 07:32 01/13/25 07:25 2 01/13/25 07:14 3 01/13/25 03:27 4 Laboratory Results 01/13/25 05:41 01/13/25 05:41 UA 4/16 sg 1027, 1+ blood trace ketones, 1+ bilirubin, + granular casts Diagnostic Findings CT chest non con Patchy airspace opacities in the right upper lobe and right lower lobe consistent with infectious or inflammatory infiltrates. Right hilar and mediastinal adenopathy likely to be reactive but recommend follow-up. 7 mm solid nodule in the right lower lobe having different characteristics than the inflammatory infiltrates. Recommend follow-up. 2.5 cm middle mediastinal mass just anterior to the esophagus with low attenuation most likely an enteric cyst or benign esophageal wall lesion. I would advise repeat CT follow-up in the near future with contrast enhancement to better evaluate the adenopathy, the characteristics of the right lower lobe nodule, and the characteristics of the mediastinal mass. Following that, would recommend a follow-up chest CT in 3-6 months to reevaluate the right lung nodule and to reassess the adenopathy and the mediastinal mass.
[2025-01-13] MEDS: ONDANSETRON INJ 2 MG/ML 2 ML VIAL IV PRN (16:02)
[2025-01-13 16:30] LABS: Urine Potassium 64.6 mmol/L
--- NOTE | 2025-01-13 17:34 | Oncology Consultation ---
Date of Consultation January 13, 2025 Assessment & Plan (1) Pancytopenia due to antineoplastic chemotherapy: Transfuse packed red blood cells for hemoglobin less than 7 g/dL transfuse platelets if patient is actively bleeding or the platelet count is less than 10,000 no need for growth factor as the patient received long-acting growth factor during the chemotherapy Plan thank you for this interesting oncological consult medical oncology will continue to follow the patient make appropriate recommendations. Rest of the care would be continued once the patient is discharged from the hospital with her primary oncologist History of Present Illness Reason for Consultation: Chemotherapy-induced neutropenia neutropenic fever Attending Physician: Etelvina Driscoll MD History of Present Illness the patient is a very pleasant 74-year-old woman with a past history of large cell neuroendocrine cancer currently under the care of my colleagues from [facility] on chemotherapy who recently received carboplatin etoposide on 01/03 to 01/05/2025 subsequently received growth factor has been admitted with neutropenic fever. per chest x-ray shows pneumonia, she has been started on broad-spectrum antibiotics. Medical oncology is has been consulted to assist in management for this patient with chemotherapy induced neutropenia Allergies Allergy/AdvReac Type Severity Reaction Status Date / Time lisinopril Allergy Severe ANAPHYLAXIS Verified 01/12/25 12:36 metoprolol Allergy Intermediate Anaphylaxis Verified 01/12/25 12:36 Home Medications Medication Instructions Recorded Confirmed Type amlodipine 10 mg tablet 10 mg PO HS 07/09/19 01/12/25 History atorvastatin 20 mg tablet 20 mg PO HS 07/09/19 01/12/25 History cholecalciferol (vitamin D3) 25 1,000 unit PO HS 07/09/19 01/12/25 History mcg (1,000 unit) capsule (Vitamin D3) aspirin 81 mg tablet 81 mg PO DAILY 01/12/25 01/12/25 History hydrochlorothiazide 25 mg tablet 25 mg PO QAM 01/12/25 01/12/25 History loratadine 10 mg tablet 10 mg PO DAILY 01/12/25 01/12/25 History lorazepam 0.5 mg tablet 0.5 mg PO HS PRN Anxiety/Sleep 01/12/25 01/12/25 History ondansetron HCl 8 mg tablet 8 mg PO Q8H PRN Nausea 01/12/25 01/12/25 History prochlorperazine maleate 10 mg 10 mg PO Q6H PRN Nausea 01/12/25 01/12/25 History tablet Patient History Medical History (Updated 01/14/25 @ 16:49 by Shauna Tabares MD, PhD) 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 She was first diagnosed in 1984 where she had a partial mastectomy and radiation therapy. She had a mammogram in 2014 showing a possible recurrence. She then had bilateral mastectomies with reconstruction. Pathology showing invasive carcinoma grade 3, ER/HI negative and HER2 Alexander positive. She was treated with the 1st cycles of TCH and 1 year of Herceptin which she completed on 07/23/2016. Nausea and vomiting after administration of anesthetic agent Osteoarthritis GERD (gastroesophageal reflux disease) Peripheral neuropathy r/t chemotherapy Migraine Hyperlipidemia Chronic obstructive pulmonary disease possible -- current testing Surgical History (Updated 01/12/25 @ 14:13 by MONO Jimenez) History of lobectomy of lung SAURAV for neuroendocrine tumor History of cataract surgery History of breast augmentation 2014 - implants removed d/t infection. Patient reports minimal implants. Hx of lumpectomy Left History of herniorrhaphy umbilical History of colonoscopy Family History Other Cancer Heart disease Hypertension Social History Smoking Status: Former smoker Tobacco Type: Cigarettes Cigarettes Per Day: 20 x 54 years; Second Hand Exposure: Yes; Do You Dip or Chew Tobacco: No; Hx Alcohol Use: No Hx Substance Use: No Preferred Language: [place] Islander Communication Ability: Effective Luster Applicator Required: No Beliefs That Will Affect Care: None Current Living Situation: Family Current Living Situation Comment: lives with son Feels Safe at Home: Yes Assistive Devices: None Review of Systems Review of Systems: All systems reviewed & are unremarkable except as noted in HPI & below Constitutional: as per Subjective / HPI Eyes: as per Subjective / HPI Ear, Nose, Mouth, Throat: as per Subjective / HPI Respiratory: as per Subjective / HPI Cardiovascular: as per Subjective / HPI Gastrointestinal: as per Subjective / HPI Genitourinary: as per Subjective / HPI Musculoskeletal: as per Subjective / HPI Integumentary: as per Subjective / HPI Neurologic: as per Subjective / HPI Physical Exam Constitutional: WD/WN, vitals as above Eyes: PERRL, conjunctivae normal, anicteric sclerae ENMT: external ear and nose normal, oropharynx normal Neck: trachea midline, no thyromegaly Respiratory: normal respiratory effort, lungs clear to auscultation Cardiovascular: RRR, no murmur, no edema Gastrointestinal (Abdomen): normal bowel sounds, soft, nontender, no hepatosplenomegaly Musculoskeletal: no cyanosis or clubbing, extremities motor strength 5/5 Skin: no rashes, warm and dry Results & Data Vital Signs (Past 12 Hours) Vital Signs Temp Pulse Pulse Resp BP Pulse Ox O2 Del Method 01/13/25 15:50 36.7 C 81 16 148/68 H 96 Nasal Cannula 01/13/25 15:35 66 01/13/25 11:15 Nasal Cannula 01/13/25 11:06 36.7 C 68 20 124/65 96 Nasal Cannula 01/13/25 07:32 66 01/13/25 07:25 36.7 C 69 19 101/59 L 93 Nasal Cannula 01/13/25 07:14 75 19 96 Nasal Cannula O2 Flow Rate 01/13/25 15:50 3 01/13/25 15:35 01/13/25 11:15 2 01/13/25 11:06 2 01/13/25 07:32 01/13/25 07:25 2 01/13/25 07:14 3
[2025-01-13] MEDS: POTASSIUM CHLORIDE / WTR 20 MEQ/100 ML PLCT IV SCH (17:54)
[2025-01-13] MEDS: HYDROcodone/HOMATROPINE SYRUP 5MG/1.5MG 5ML UDP PO PRN (19:42)
[2025-01-13] MEDS: DOXYCYCLINE HYCLATE 100 MG CAP PO SCH (19:43)
[2025-01-13] MEDS: BENZONATATE 100 MG CAPSULE PO SCH (19:44)
[2025-01-13] MEDS: POTASSIUM CHLORIDE / WTR 10 MEQ/100 ML PLCT IV SCH (22:13)
[2025-01-14 06:47] LABS: BUN Creatinine Ratio 20.2 (10-20); Bilirubin,Total 0.6 mg/dl (0.2-1.0); Calcium 8.4 mg/dl (8.6-10.3); Creatinine Clr Calc Pharmacy 65.1 ml/min; Globulin 3.1 gm/dl (2.5-4.0); Magnesium 1.6 mg/dl (1.7-2.4); Phosphorus 2.4 mg/dl (2.5-4.9); Potassium 4.2 mmol/L (3.5-5.1); Total Protein 6.1 gm/dl (6.0-8.3)
[2025-01-14 06:56] LABS: Hematocrit (blood only) 23.9 % (37.0-47.0); Mean Corpuscular Hemoglobin 26.1 pg (25.0-34.0); Mean Corpuscular Hgb Conc 33.5 g/dL (32.0-36.0); Mean Corpuscular Volume 78.1 fL (80.0-100.0); Mean Platelet Volume 10.8 fL (9.4-12.4); Neutrophils # (auto) < 0.50 K/uL (1.40-6.50); Platelet Count 24 K/uL (130-400); RDW Coefficient of Variation 14.6 % (11.5-14.5); RDW Standard Deviation 41.2 fL (36.4-46.3); Red Blood Count 3.06 M/uL (4.20-5.40); White Blood Count 0.22 K/ul (4.8-10.8)
[2025-01-14 07:06] LABS: Ferritin 255.9 ng/ml (8-388)
[2025-01-14 07:07] LABS: Folate (Folic Acid),Ser orPlas 7.78 ng/ml (>5.38)
[2025-01-14 08:22] LABS: Estimated Average Glucose 134 mg/dl; Hemoglobin A1C 6.3 % (4.5-5.6)
[2025-01-14] MEDS ORDERED: SODIUM PHOSPHATE 3 MMOL/1 ML INFUSION IV STA (09:01)
[2025-01-14] MEDS: POT PHOSPHATE MONOBASIC W/ SOD TAB PO SCH (09:48)
[2025-01-14] MEDS: MAGNESIUM OXIDE 400 MG TAB PO SCH (09:48)
[2025-01-14] MEDS: IRON SUCROSE 200 MG in SODIUM CHLORIDE 0.9% 100 ML IV ONE (09:48)
--- NOTE | 2025-01-14 12:33 | Hospitalist Progress Note ---
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 Acute Hypoxic Respiratory Failure Pneumonia Human Metapneumovirus In the ED, patient was hypoxic on room air at 88%, requiring 2 L of oxygen via nasal cannula. Afebrile and hemodynamically stable. Pancytopenic RVP positive for human metapneumovirus. CXR is suggestive of a right midlung pneumonia. Procalcitonin elevated Patient was given IV cefepime, IV Vanco, IVF in the ED Continue Vanco and cefepime, doxycycline CT chest noting infectious or inflammatory infiltrates, adenopathy, 7mm solid nodule in RLL and 2.5cm middle mediastinal mass. The radiologist also noted the following: "...I would advise repeat CT follow-up in the near future with contrast enhancement to better evaluate the adenopathy, the characteristics of the right lower lobe nodule, and the characteristics of the mediastinal mass. Following that, would recommend a follow-up chest CT in 3-6 months to reevaluate the right lung nodule and to reassess the adenopathy and the mediastinal mass..." Pulmonary toilet with nebs, Mucinex, incentive spirometer, flutter valve Sputum Cx pending Blood cultures NGTD Oxygen supplementation as needed Continue to monitor Pancytopenia Anemia Thrombocytopenia In setting of chemotherapy iron studies noting iron deficiency anemia, s/p IV Venofer on 01/14 Monitor H/H, transfuse as needed for hgb <7 Monitor platelets, transfuse for platelets <10K Hematology consult while inpatient, appreciate recs Pt follows with Dr Mancia from [facility] Oncology Continue to monitor Hyponatremia Sodium 128 to 127 Received IV fluids Urine electrolytes, urine osm Nephrology consulted, appreciate recs Hypomagnesemia Hypokalemia Hypophosphatemia Replete as needed Hyperglycemia Prediabetes hgba1c of 6.3 PCP followup Elevated Liver Enzymes elevated t bili and direct bili levels Improving Acute Kidney Injury Cr elevated at 1.2 on admission IV Fluids Currently resolved Hypertension Home amlodipine and HCTZ currently on hold Hyperlipidemia Continue statin Continue other home meds as ordered Diet: Regular, FR 1800ml DVT prophylaxis: SCDs in setting of thrombocytopenia Dispo: PT/OT for further recs once medically stable Admission and Anticipated Discharge Date Admission Date: January 12, 2025 Subjective pt was seen in the AM States that cough was improving Appetite is poor Review of Systems Review of Systems: All systems reviewed & are unremarkable except as noted in Subjective Physical Exam Physical Exam: General: Alert, oriented. NC in nares, appears sick Psych: Appropriate mood and affect HEENT: NC/AT Chest: noted port in place CV: RRR Resp: Breath sounds clear bilaterally, no increased effort of breathing Abdomen:Soft, nontender Extremities: No edema in lower extremities bilaterally. Results & Data Results & Data Vital Signs (Past 12 Hours) Vital Signs Temp Pulse Resp BP Pulse Ox O2 Del Method O2 Flow Rate 01/14/25 11:09 37.1 C 77 18 111/66 95 Nasal Cannula 2.0 01/14/25 09:00 Nasal Cannula 2 01/14/25 08:30 37.1 C 01/14/25 07:11 37.9 C H 80 22 133/70 95 Nasal Cannula 2.0 01/14/25 07:06 80 22 95 Nasal Cannula 2 01/14/25 02:24 37.3 C 76 16 116/68 96 Nasal Cannula 2
--- NOTE | 2025-01-14 16:43 | Nephrology Progress Note ---
Date of Service January 14, 2025 Assessment & Plan (1) Hyponatremia: Plan: stable mild - moderate hyponatremia likely multifactorial - related to carboplatin therapy on 01/03, to saline obligate at admission plus/minus hctz and from poor po intake prior to admission adn from pneumonia. doubt it's hypovolemic as she's has 2L NS w/ slight worsening in sodium. hypokalemia, F, BM suppression support this may be from platin based therapy. serum / urine studies c/w hypotonic hyponatremia, SIADH-like presenting sodium 128 on 01/12; dropped to 01/13 to 127, 128 01/14. admission UA w/ SG extremely concentrated from poor po intake all around >>daily BMP >maintain eukalemia > had po K today >>some ? about whether we can use port and she has very limited IV access/ only one arm for sites > contacted provider who placed port to see if we could use; mssg read but not answered; will f/u >>limit upper sNa is no more than 134 tomorrow am >> for now focus with that will be in treatment of pneumonia, K repletion, and maintaining sodium in current rage Other conventional treatments will be challenging for her right now w/ dysphagia > including urea (difficult to swallow) and lasix (lowers K further) but would start these if Na drops or/and swallowing improves -cont 1.8 L FR >> protein shakes do NOT count tward this Care plan coordinated w/ Dr Driscoll by [employer] re causes low Na, FR, care plan; we are in agreement. (2) Hypomagnesemia: Plan: last level 1.6; some lability > was 1.4 on presentation >recheck mag daily (3) Pancytopenia due to antineoplastic chemotherapy: Plan: if transfusion/repletion of BM elements needed IV would follow w/ IV lasix and K for sure (4) Hypokalemia: Plan: as above (5) Neutropenic fever: Plan: per primary service > on cefepime, vanco, doxy Admission and Anticipated Discharge Date Admission Date: January 12, 2025 Subjective delayed note entered for noon encounter. she feels a bit stronger today > still marked exertional dyspnea and hacking cough; some R rib pain/ pleuritic or wtih cough; no bleeding; still struggling to take po and w/ severe dry mouth and pain w/ swallowing Review of Systems 2 Review of Systems: All systems reviewed & are unremarkable except as noted in Subjective Physical Exam 2 Constitutional: well developed, well nourished, + acute distress (mild with breathing/coughing/fatigue) and cooperative Eyes: EOM intact bilaterally ENMT: Mouth: + dry oral mucous membranes Respiratory: + labored breathing (slight), + cough, a ble to speak in complete sentences (but dyspneic after a few sentences though better than 17) and + tachypneic; expiratory phase not prolonged and no paradoxical thoraco-abdominal movemnt Auscultation: + diminished lung sounds Gastrointestinal (Abdomen): Inspection/Auscultation: normal bowel sounds P ercussion/Palpation: abdomen soft; abdomen nontender Musculoskeletal: Extremities: strength 5/5 throughout Skin: no rashes, warm and dry Psychiatric: Orientation: alert and oriented x 3 Results & Data Vital Signs (Past 12 Hours) Vital Signs Temp Pulse Resp BP Pulse Ox Pulse Ox Pulse Ox 01/14/25 15:54 36.7 C 83 18 109/60 95 01/14/25 13:49 75 24 94 01/14/25 13:42 96 93 01/14/25 11:09 37.1 C 77 18 111/66 95 01/14/25 09:00 01/14/25 08:30 37.1 C 01/14/25 07:11 37.9 C H 80 22 133/70 95 01/14/25 07:06 80 22 95 O2 Del Method O2 Flow Rate O2 Flow Rate O2 Flow Rate 01/14/25 15:54 Nasal Cannula 2.0 01/14/25 13:49 Nasal Cannula 2 01/14/25 13:42 2 2 01/14/25 11:09 Nasal Cannula 2.0 01/14/25 09:00 Nasal Cannula 2 01/14/25 08:30 01/14/25 07:11 Nasal Cannula 2.0 01/14/25 07:06 Nasal Cannula 2 Laboratory Results 01/14/25 05:49 01/14/25 05:49
[2025-01-14] MEDS: DOCUSATE SODIUM 100 MG CAP PO SCH (20:38)
[2025-01-15] MEDS: VANCOMYCIN HCL 1,500 MG in SODIUM CHLORIDE 0.9% 500 ML IV SCH (04:48)
[2025-01-15 06:01] LABS: Hematocrit (blood only) 24.7 % (37.0-47.0); Hemoglobin 8.1 g/dl (12.0-16.0); Mean Corpuscular Hemoglobin 26.2 pg (25.0-34.0); Mean Corpuscular Hgb Conc 32.8 g/dL (32.0-36.0); Mean Corpuscular Volume 79.9 fL (80.0-100.0); Platelet Count 38 K/uL (130-400); RDW Coefficient of Variation 14.8 % (11.5-14.5); RDW Standard Deviation 43.2 fL (36.4-46.3); Red Blood Count 3.09 M/uL (4.20-5.40); White Blood Count 0.46 K/ul (4.8-10.8)
[2025-01-15 06:10] LABS: Albumin Globulin Ratio 0.9 (0.9-2); BUN Creatinine Ratio 17.6 (10-20); Bilirubin,Total 0.7 mg/dl (0.2-1.0); Calcium 8.8 mg/dl (8.6-10.3); Creatinine Clr Calc Pharmacy 60.1 ml/min; Globulin 3.3 gm/dl (2.5-4.0); Magnesium 1.6 mg/dl (1.7-2.4); Phosphorus 3.1 mg/dl (2.5-4.9); Potassium 3.7 mmol/L (3.5-5.1); Total Protein 6.3 gm/dl (6.0-8.3)
[2025-01-15] MEDS: FERROUS SULFATE 325 MG TAB PO SCH (09:08)
--- NOTE | 2025-01-15 17:10 | Hospitalist Progress Note ---
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 Acute Hypoxic Respiratory Failure Pneumonia Human Metapneumovirus In the ED, patient was hypoxic on room air at 88%, requiring 2 L of oxygen via nasal cannula. Afebrile and hemodynamically stable. Pancytopenic RVP positive for human metapneumovirus. CXR is suggestive of a right midlung pneumonia. Procalcitonin elevated Patient was given IV cefepime, IV Vanco, IVF in the ED Continue Vanco and cefepime, doxycycline CT chest noting infectious or inflammatory infiltrates, adenopathy, 7mm solid nodule in RLL and 2.5cm middle mediastinal mass. The radiologist also noted the following: "...I would advise repeat CT follow-up in the near future with contrast enhancement to better evaluate the adenopathy, the characteristics of the right lower lobe nodule, and the characteristics of the mediastinal mass. Following that, would recommend a follow-up chest CT in 3-6 months to reevaluate the right lung nodule and to reassess the adenopathy and the mediastinal mass..." Pulmonary toilet with nebs, Mucinex, incentive spirometer, flutter valve Sputum Cx NGTD Blood cultures NGTD Oxygen supplementation as needed Continue to monitor Pancytopenia Anemia Thrombocytopenia In setting of chemotherapy iron studies noting iron deficiency anemia, s/p IV Venofer on 01/14 Monitor H/H, transfuse as needed for hgb <7 Monitor platelets, transfuse for platelets <10K Hematology consult while inpatient, appreciate recs Pt follows with Dr Mancia from [facility] Continue to monitor Hyponatremia Sodium 128 to 127 Received IV fluids Urine electrolytes, urine osm Nephrology consulted, appreciate recs Hypomagnesemia Hypokalemia Hypophosphatemia Replete as needed Hyperglycemia Prediabetes hgba1c of 6.3 PCP followup Elevated Liver Enzymes elevated t bili and direct bili levels Improving Acute Kidney Injury Cr elevated at 1.2 on admission IV Fluids Currently resolved Hypertension Home amlodipine and HCTZ currently on hold Hyperlipidemia Continue statin Continue other home meds as ordered Diet: Regular, FR 1800ml DVT prophylaxis: SCDs in setting of thrombocytopenia Dispo: PT/OT for further recs once medically stable Admission and Anticipated Discharge Date Admission Date: January 12, 2025 Subjective pt was seen in the AM Extensive discussion Having pain around her port site on her chest, didn't realize she can ask for her prn narcotics to help Review of Systems Review of Systems: All systems reviewed & are unremarkable except as noted in Subjective Physical Exam Physical Exam: General: Alert, oriented. NC in nares, appears sick Psych: Appropriate mood and affect HEENT: NC/AT Chest: noted port in place CV: RRR Resp: Breath sounds clear bilaterally, no increased effort of breathing Abdomen:Soft, nontender Extremities: No edema in lower extremities bilaterally. Results & Data Results & Data Vital Signs (Past 12 Hours) Vital Signs Temp Pulse Pulse Resp BP Pulse Ox O2 Del Method 01/15/25 15:26 37.0 C 69 17 132/72 96 Nasal Cannula 01/15/25 14:10 77 01/15/25 11:17 37.0 C 76 19 137/67 95 Nasal Cannula 01/15/25 09:59 Nasal Cannula 01/15/25 08:16 62 01/15/25 07:22 37.4 C 67 19 113/66 94 Nasal Cannula O2 Flow Rate 01/15/25 15:26 2.0 01/15/25 14:10 01/15/25 11:17 2.0 01/15/25 09:59 2 01/15/25 08:16 01/15/25 07:22 2.0
[2025-01-15] MEDS: CEFEPIME 2000MG 2,000 MG/20 ML SYR IV SCH (17:45)
[2025-01-15] MEDS: MAGNESIUM SULFATE / D5W 1 GM/100 ML BAG IV SCH (18:15)
[2025-01-15] MEDS: SODIUM CHLORIDE 0.9% 500 ML IV ONE (22:54)
[2025-01-16 06:46] LABS: Hematocrit (blood only) 22.3 % (37.0-47.0); Hemoglobin 7.4 g/dl (12.0-16.0); Mean Corpuscular Hemoglobin 26.1 pg (25.0-34.0); Mean Corpuscular Hgb Conc 33.2 g/dL (32.0-36.0); Mean Corpuscular Volume 78.8 fL (80.0-100.0); Mean Platelet Volume 11.9 fL (9.4-12.4); Platelet Count 39 K/uL (130-400); RDW Coefficient of Variation 14.8 % (11.5-14.5); RDW Standard Deviation 42.9 fL (36.4-46.3); Red Blood Count 2.83 M/uL (4.20-5.40); White Blood Count 0.61 K/ul (4.8-10.8)
[2025-01-16] MEDS: VANCOMYCIN LEVEL ONE (06:55)
[2025-01-16 07:11] LABS: Eosinophils # (auto) 0.01 K/uL (0.00-0.50); Eosinophils % (auto) 1.6 %; Lymphocytes # (auto) 0.15 K/uL (1.20-3.40); Lymphocytes % (auto) 24.6 %; Monocytes # (auto) 0.07 K/uL (0.11-0.59); Monocytes % (auto) 11.5 %; Neutrophils # (auto) 0.38 K/uL (1.40-6.50); Neutrophils % (auto) 62.3 %
[2025-01-16 07:12] LABS: Dohle Bodies 3+; Toxic Granulation 3+
[2025-01-16 07:22] LABS: Albumin Globulin Ratio 0.9 (0.9-2); Albumin Level 2.7 gm/dl (3.4-5.0); Bilirubin,Total 0.6 mg/dl (0.2-1.0); Calcium 8.2 mg/dl (8.6-10.3); Creatinine Clr Calc Pharmacy 64.4 ml/min; Globulin 2.9 gm/dl (2.5-4.0); Magnesium 1.9 mg/dl (1.7-2.4); Phosphorus 2.7 mg/dl (2.5-4.9); Potassium 3.7 mmol/L (3.5-5.1); Total Protein 5.6 gm/dl (6.0-8.3)
--- NOTE | 2025-01-16 09:38 | Pharmacy Report ---
Pharmacy PK ABX Note - Date of Service January 16, 2025 - Assessment and Plan Assessment 74 year old F receiving vancomycin, doxycycline, and cefepime for treatment of CAP. Patient with remote history of breast cancer s/p bilateral mastectomies, radiation, and chemo. 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 She now presents with low-grade fever, worsening cough, weakness, nausea, and vomiting. * Pertinent microbiologic data includes: + for hMPV. Blood and sputum cultures with no pertinent growth. Urine with Corynebacterium. Nasal MRSA negative. This was previously discussed w the provider - continue vanco for now per pass on. * CXR suggestive of right midlung PNA. Plan Vancomycin * Maintenance dose: 1250 mg IV every 24 hours * Target AUC/LAXMI of 400-600 mg/L.hr * Random level of 6.4 mcg/mL associated with a subtherapeutic AUC of 363 mg/L.hr. * Increase vancomycin to 1000 mg IV q12h * Random level will be ordered for 01/18 w AM labs Pharmacy will continue to follow and will adjust dose/frequency as necessary. Thank you. Pharmacy has transitioned to AUC monitoring for vancomycin. AUC/LAXMI is the preferred PK/PD target and is associated with decreased risk of nephrotoxicity compared to traditional trough targets.
--- NOTE | 2025-01-16 11:45 | Hospitalist Progress Note ---
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 Acute Hypoxic Respiratory Failure Pneumonia Human Metapneumovirus In the ED, patient was hypoxic on room air at 88%, requiring 2 L of oxygen via nasal cannula. Afebrile and hemodynamically stable. Pancytopenic RVP positive for human metapneumovirus. CXR is suggestive of a right midlung pneumonia. Procalcitonin elevated Patient was given IV cefepime, IV Vanco, IVF in the ED Continue Vanco and cefepime, doxycycline CT chest noting infectious or inflammatory infiltrates, adenopathy, 7mm solid nodule in RLL and 2.5cm middle mediastinal mass. The radiologist also noted the following: "...I would advise repeat CT follow-up in the near future with contrast enhancement to better evaluate the adenopathy, the characteristics of the right lower lobe nodule, and the characteristics of the mediastinal mass. Following that, would recommend a follow-up chest CT in 3-6 months to reevaluate the right lung nodule and to reassess the adenopathy and the mediastinal mass..." Pulmonary toilet with nebs, Mucinex, incentive spirometer, flutter valve Sputum Cx NGTD Blood cultures NGTD Oxygen supplementation as needed Continue to monitor Pancytopenia Anemia Thrombocytopenia In setting of chemotherapy iron studies noting iron deficiency anemia, s/p IV Venofer on 01/14 Monitor H/H, transfuse as needed for hgb <7 Monitor platelets, transfuse for platelets <10K Hematology consult while inpatient, appreciate recs Pt follows with Dr Mancia from [facility] On[facility] Continue to monitor 01/16- H/h trending down, blood consent signed. Hyponatremia Sodium 128 to 127 Received IV fluids Urine electrolytes, urine osm Nephrology consulted, appreciate recs Hypomagnesemia Hypokalemia Hypophosphatemia Replete as needed Hyperglycemia Prediabetes hgba1c of 6.3 PCP followup Elevated Liver Enzymes elevated t bili and direct bili levels Improving Acute Kidney Injury Cr elevated at 1.2 on admission IV Fluids Currently resolved Hypertension Home amlodipine and HCTZ currently on hold Hyperlipidemia Continue statin Continue other home meds as ordered Diet: Regular, FR 1800ml DVT prophylaxis: SCDs in setting of thrombocytopenia Dispo: PT/OT for further recs once medically stable Admission and Anticipated Discharge Date Admission Date: January 12, 2025 Subjective Pt was seen in the AM Blood consent signed Attempt made to contact pt's son by telephone unsuccessful Review of Systems Review of Systems: All systems reviewed & are unremarkable except as noted in Subjective Physical Exam Physical Exam: General: Alert, oriented. NC in nares, appears sick Psych: Appropriate mood and affect HEENT: NC/AT Chest: noted port in place CV: RRR Resp: Breath sounds clear bilaterally, no increased effort of breathing Abdomen:Soft, nontender Extremities: No edema in lower extremities bilaterally. Results & Data Results & Data Vital Signs (Past 12 Hours) Vital Signs Temp Pulse Pulse Resp BP Pulse Ox O2 Del Method 01/16/25 11:31 36.8 C 60 18 108/47 L 96 Nasal Cannula 01/16/25 07:30 36.8 C 77 17 115/52 L 92 Nasal Cannula 01/16/25 07:24 80 20 88 L Room Air 01/16/25 07:14 76 01/16/25 04:19 36.9 C 85 20 116/74 92 Room Air O2 Flow Rate 01/16/25 11:31 2.0 01/16/25 07:30 2.0 01/16/25 07:24 01/16/25 07:14 01/16/25 04:19
[2025-01-16 12:38] LABS: Hematocrit (blood only) 21.9 % (37.0-47.0); Hemoglobin 7.2 g/dl (12.0-16.0)
[2025-01-16] MEDS: oxyCODONE HCL IR 5 MG TAB (IMMEDIATE RELEASE) PO PRN (15:07)
[2025-01-16] MEDS: VANCOMYCIN HCL 1,000 MG/270 ML BAG IV SCH (20:14)
[2025-01-17] MEDS: MELATONIN 3 MG TAB PO PRN (02:15)
[2025-01-17 06:14] LABS: Albumin Globulin Ratio 0.9 (0.9-2); Albumin Level 2.5 gm/dl (3.4-5.0); Bilirubin,Total 0.5 mg/dl (0.2-1.0); Calcium 8.1 mg/dl (8.6-10.3); Creatinine Clr Calc Pharmacy 69.1 ml/min; Globulin 2.9 gm/dl (2.5-4.0); Magnesium 1.7 mg/dl (1.7-2.4); Phosphorus 3.1 mg/dl (2.5-4.9); Potassium 3.5 mmol/L (3.5-5.1); Total Protein 5.4 gm/dl (6.0-8.3)
[2025-01-17 06:18] LABS: Hematocrit (blood only) 21.6 % (37.0-47.0); Hemoglobin 7.1 g/dl (12.0-16.0); Mean Corpuscular Hemoglobin 26.1 pg (25.0-34.0); Mean Corpuscular Hgb Conc 32.9 g/dL (32.0-36.0); Mean Corpuscular Volume 79.4 fL (80.0-100.0); Mean Platelet Volume 12.7 fL (9.4-12.4); Platelet Count 61 K/uL (130-400); RDW Coefficient of Variation 15.1 % (11.5-14.5); RDW Standard Deviation 43.8 fL (36.4-46.3); Red Blood Count 2.72 M/uL (4.20-5.40); White Blood Count 1.11 K/ul (4.8-10.8)
[2025-01-17 07:45] LABS: ALC (manual) 0.27 K/uL (1.2-3.4); ANC (manual) 0.62 K/uL (1.4-6.5); Eosinophils # (manual) 0.02 K/uL (0-0.50); Eosinophils % (manual) 2 %; Giant Platelets 1+; Lymphocytes # (manual) 0.27 K/uL (1.2-3.4); Lymphocytes % (manual) 24 %; Metamyelocytes # (manual) 0.02 K/uL (0-0); Metamyelocytes % (manual) 2 %; Monocytes # (manual) 0.16 K/uL (0.11-0.59); Monocytes % (manual) 14 %; Myelocytes # (manual) 0.02 K/uL (0-0); Myelocytes % (manual) 2 %; Neutrophils # (manual) 0.62 K/uL (1.40-6.50); Neutrophils % (manual) 56 %; Toxic Granulation 3+
[2025-01-17 14:36] LABS: Hemoglobin 7.6 g/dl (12.0-16.0)
--- NOTE | 2025-01-17 15:41 | Hospitalist Progress Note ---
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 Acute Hypoxic Respiratory Failure Pneumonia Human Metapneumovirus In the ED, patient was hypoxic on room air at 88%, requiring 2 L of oxygen via nasal cannula. Afebrile and hemodynamically stable. Pancytopenic RVP positive for human metapneumovirus. CXR is suggestive of a right midlung pneumonia. Procalcitonin elevated Patient was given IV cefepime, IV Vanco, IVF in the ED Continue Vanco and cefepime, doxycycline CT chest noting infectious or inflammatory infiltrates, adenopathy, 7mm solid nodule in RLL and 2.5cm middle mediastinal mass. The radiologist also noted the following: "...I would advise repeat CT follow-up in the near future with contrast enhancement to better evaluate the adenopathy, the characteristics of the right lower lobe nodule, and the characteristics of the mediastinal mass. Following that, would recommend a follow-up chest CT in 3-6 months to reevaluate the right lung nodule and to reassess the adenopathy and the mediastinal mass..." Pulmonary toilet with nebs, Mucinex, incentive spirometer, flutter valve Sputum Cx NGTD Blood cultures NGTD Oxygen supplementation as needed Continue to monitor Improved Pancytopenia Anemia Thrombocytopenia In setting of chemotherapy iron studies noting iron deficiency anemia, s/p IV Venofer on 01/14 Monitor H/H, transfuse as needed for hgb <7 Monitor platelets, transfuse for platelets <10K Hematology consult while inpatient, appreciate recs Pt follows with Dr Mancia from [facility] Continue to monitor 01/16- H/h trending down, blood consent signed. 01/17- stable Hyponatremia Sodium 128 to 127 Received IV fluids Urine electrolytes, urine osm Nephrology consulted, appreciate recs Improving Hypomagnesemia Hypokalemia Hypophosphatemia Replete as needed Hyperglycemia Prediabetes hgba1c of 6.3 PCP followup Elevated Liver Enzymes elevated t bili and direct bili levels Improving Acute Kidney Injury Cr elevated at 1.2 on admission IV Fluids Currently resolved Hypertension Home amlodipine and HCTZ currently on hold Hyperlipidemia Continue statin Continue other home meds as ordered Diet: Regular, FR 1800ml DVT prophylaxis: SCDs in setting of thrombocytopenia Dispo: PT/OT for further recs once medically stable Admission and Anticipated Discharge Date Admission Date: January 12, 2025 Subjective Pt was seen in the AM Sitting up in chair at bedside States having right sided flank and chest pain Denies SOB Review of Systems Review of Systems: All systems reviewed & are unremarkable except as noted in Subjective Physical Exam Physical Exam: General: Alert, oriented. NC in nares, appears sick Psych: Appropriate mood and affect HEENT: NC/AT Chest: noted port in place, tender over right flank CV: RRR Resp: Breath sounds clear bilaterally, no increased effort of breathing Abdomen:Soft, nontender Extremities: No edema in lower extremities bilaterally. Results & Data Results & Data Vital Signs (Past 12 Hours) Vital Signs Temp Pulse Pulse Resp BP Pulse Ox O2 Del Method 01/17/25 15:28 65 01/17/25 13:09 66 17 93 Nasal Cannula 01/17/25 12:02 36.5 C 62 20 130/60 93 Nasal Cannula 01/17/25 10:57 Nasal Cannula 01/17/25 08:29 36.8 C 71 18 134/54 L 90 Nasal Cannula 01/17/25 07:30 61 16 94 Nasal Cannula 01/17/25 07:26 61 O2 Flow Rate 01/17/25 15:28 01/17/25 13:09 2 01/17/25 12:02 2 01/17/25 10:57 2 01/17/25 08:29 1 01/17/25 07:30 1 01/17/25 07:26
[2025-01-17] MEDS ORDERED: HYDROmorphone INJ 0.5 MG/0.5 ML SYR IV PRN (17:27)
--- NOTE | 2025-01-17 19:00 | XRay Report ---
EXAM: Portable AP chest radiograph TECHNIQUE: AP portable radiograph of the chest was obtained. INDICATION: Shortness of breath Comparison: CT chest January 12, 2025. FINDINGS: LINES and TUBES: Right-sided Port-A-Cath with tip projecting over the superior cavoatrial junction. None CARDIOVASCULAR: Cardiac silhouette is normal in size. LUNGS/PLEURA: Interval worsening of the pulmonary alveolar opacification in the right hemithorax with this worsening most prominent over the right upper lobe. Mild interval increase in the left basilar density also noted. Small pleural fluid may be present with blunting of the costophrenic angles. No discernible pneumothorax. Chronic interstitial changes of the lungs and mild emphysema. OSSEOUS/OTHER: No displaced acute osseous process identified. IMPRESSION: Interval worsening of pulmonary alveolar opacities in the right greater than left lungs suggesting worsening multifocal pneumonia. Electronically signed by Sunil Doshi 01-17-2025 6:59 PM
[2025-01-18 06:39] LABS: Albumin Globulin Ratio 0.9 (0.9-2); Albumin Level 2.5 gm/dl (3.4-5.0); BUN Creatinine Ratio 13.2 (10-20); Bilirubin,Total 0.5 mg/dl (0.2-1.0); Calcium 7.9 mg/dl (8.6-10.3); Creatinine Clr Calc Pharmacy 71.9 ml/min; Globulin 2.7 gm/dl (2.5-4.0); Magnesium 1.5 mg/dl (1.7-2.4); Potassium 3.5 mmol/L (3.5-5.1); Total Protein 5.2 gm/dl (6.0-8.3)
[2025-01-18 06:41] LABS: Hematocrit (blood only) 20.3 % (37.0-47.0); Hemoglobin 6.9 g/dl (12.0-16.0); Mean Corpuscular Volume 79.3 fL (80.0-100.0); Mean Platelet Volume 12.4 fL (9.4-12.4); Nucleated RBC # (auto) 0.02 K/uL (0.00-0.12); Platelet Count 87 K/uL (130-400); RDW Coefficient of Variation 15.3 % (11.5-14.5); RDW Standard Deviation 44.8 fL (36.4-46.3); Red Blood Count 2.56 M/uL (4.20-5.40)
[2025-01-18] MEDS ORDERED: SODIUM CHLORIDE 0.9% 100 ML IV PRN (06:45)
[2025-01-18 07:18] LABS: Dohle Bodies 1+; Eosinophils # (auto) 0.01 K/uL (0.00-0.50); Eosinophils % (auto) 0.5 %; Immature Granulocytes # (auto) 0.16 K/uL (0.01-0.20); Lymphocytes # (auto) 0.35 K/uL (1.20-3.40); Lymphocytes % (auto) 17.5 %; Monocytes # (auto) 0.24 K/uL (0.11-0.59); Neutrophils # (auto) 1.24 K/uL (1.40-6.50); Toxic Granulation 2+
--- NOTE | 2025-01-18 07:33 | Pharmacy Report ---
Pharmacy PK ABX Note - Date of Service January 18, 2025 - Assessment and Plan Assessment 01/18: Reviewed vancomycin level, predicting therapeutic AUC/LAXMI, continue current regimen 01/16: 74 year old F receiving vancomycin, doxycycline, and cefepime for treatment of CAP. Patient with remote history of breast cancer s/p bilateral mastectomies, radiation, and chemo. 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 She now presents with low-grade fever, worsening cough, weakness, nausea, and vomiting. * Pertinent microbiologic data includes: + for hMPV. Blood and sputum cultures with no pertinent growth. Urine with Corynebacterium. Nasal MRSA negative. This was previously discussed w the provider - continue vanco for now per pass on. * CXR suggestive of right midlung PNA. Plan Vancomycin * Maintenance dose: 1000 mg IV every 12 hours * Target AUC/LAXMI of 400-600 mg/L.hr * Random level of 16.6 mcg/mL associated with a therapeutic AUC/LAXMI of 454 mg/L.hr. * Random level to be ordered later in the week or sooner based on clinical status. Pharmacy will continue to follow and will adjust dose/frequency as necessary. Thank you. Pharmacy has transitioned to AUC monitoring for vancomycin. AUC/LAXMI is the preferred PK/PD target and is associated with decreased risk of nephrotoxicity c ompared to traditional trough targets.
[2025-01-18] MEDS ORDERED: VANCOMYCIN LEVEL ONE (08:30)
--- NOTE | 2025-01-18 13:01 | Hospitalist Progress Note ---
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 Acute Hypoxic Respiratory Failure Pneumonia Human Metapneumovirus In the ED, patient was hypoxic on room air at 88%, requiring 2 L of oxygen via nasal cannula. Afebrile and hemodynamically stable. Pancytopenic RVP positive for human metapneumovirus. CXR is suggestive of a right midlung pneumonia. Procalcitonin elevated Patient was given IV cefepime, IV Vanco, IVF in the ED Continue Vanco and cefepime, doxycycline CT chest noting infectious or inflammatory infiltrates, adenopathy, 7mm solid nodule in RLL and 2.5cm middle mediastinal mass. The radiologist also noted the following: "...I would advise repeat CT follow-up in the near future with contrast enhancement to better evaluate the adenopathy, the characteristics of the right lower lobe nodule, and the characteristics of the mediastinal mass. Following that, would recommend a follow-up chest CT in 3-6 months to reevaluate the right lung nodule and to reassess the adenopathy and the mediastinal mass..." Pulmonary toilet with nebs, Mucinex, incentive spirometer, flutter valve Sputum Cx NGTD Blood cultures NGTD Oxygen supplementation as needed Continue to monitor Improved Pancytopenia Anemia Thrombocytopenia In setting of chemotherapy iron studies noting iron deficiency anemia, s/p IV Venofer on 01/14 Monitor H/H, transfuse as needed for hgb <7 Monitor platelets, transfuse for platelets <10K Hematology consult while inpatient, appreciate recs Pt follows with Dr Mancia from [facility] Continue to monitor 01/16- H/h trending down, blood consent signed. 01/17- stable 01/18- transfused 1U pRBCs, repeat hgb 9.1. Continue to monitor h/h Hyponatremia Sodium 128 to 127 Received IV fluids Urine electrolytes, urine osm Nephrology consulted, appreciate recs Improving Hypomagnesemia Hypokalemia Hypophosphatemia Replete as needed Hyperglycemia Prediabetes hgba1c of 6.3 PCP followup Elevated Liver Enzymes elevated t bili and direct bili levels Improving Acute Kidney Injury Cr elevated at 1.2 on admission IV Fluids Currently resolved Hypertension Home amlodipine and HCTZ currently on hold Hyperlipidemia Continue statin Continue other home meds as ordered Diet: Regular, FR 1800ml DVT prophylaxis: SCDs in setting of thrombocytopenia Dispo: PT/OT for further recs once medically stable Admission and Anticipated Discharge Date Admission Date: January 12, 2025 Subjective Pt was seen in the AM Sitting up Blood transfusion this AM Review of Systems Review of Systems: All systems reviewed & are unremarkable except as noted in Subjective Physical Exam Physical Exam: General: Alert, oriented. NC in nares, appears sick Psych: Appropriate mood and affect HEENT: NC/AT Chest: noted port in place, tender over right flank CV: RRR Resp: Breath sounds clear bilaterally, no increased effort of breathing Abdomen:Soft, nontender Extremities: No edema in lower extremities bilaterally. Results & Data Results & Data Vital Signs (Past 12 Hours) Vital Signs Temp Pulse Pulse Resp BP BP Pulse Ox 01/18/25 11:56 36.4 C L 64 18 136/62 93 01/18/25 11:30 36.4 C L 63 18 134/64 93 01/18/25 11:00 63 01/18/25 10:30 36.4 C L 60 18 133/57 L 91 01/18/25 10:00 01/18/25 10:00 36.6 C 60 18 113/55 L 91 01/18/25 09:45 36.6 C 64 18 126/54 L 93 01/18/25 09:27 36.6 C 68 18 98/58 L 93 01/18/25 07:20 63 24 127/64 97 01/18/25 07:09 81 18 91 01/18/25 02:54 36.5 C 64 16 114/66 93 O2 Del Method O2 Flow Rate 01/18/25 11:56 2 01/18/25 11:30 2 01/18/25 11:00 01/18/25 10:30 2 01/18/25 10:00 Nasal Cannula 2 01/18/25 10:00 2 01/18/25 09:45 01/18/25 09:27 01/18/25 07:20 Nasal Cannula 01/18/25 07:09 Nasal Cannula 2 01/18/25 02:54 Nasal Cannula 2
[2025-01-18 13:46] LABS: Hematocrit (blood only) 27.1 % (37.0-47.0); Hemoglobin 9.1 g/dl (12.0-16.0)
[2025-01-18] MEDS: oxyCODONE HCL IR 5 MG TAB (IMMEDIATE RELEASE) PO PRN (18:33)
[2025-01-18] MEDS: MAGNESIUM SULFATE / D5W 1 GM/100 ML BAG IV SCH (20:45)
[2025-01-19 06:21] LABS: Hematocrit (blood only) 25.7 % (37.0-47.0); Hemoglobin 8.7 g/dl (12.0-16.0); Mean Corpuscular Hemoglobin 27.1 pg (25.0-34.0); Mean Corpuscular Hgb Conc 33.9 g/dL (32.0-36.0); Mean Corpuscular Volume 80.1 fL (80.0-100.0); Mean Platelet Volume 12.2 fL (9.4-12.4); Nucleated RBC # (auto) 0.02 K/uL (0.00-0.12); Nucleated RBC % (auto) 0.7 %; Platelet Count 130 K/uL (130-400); RDW Coefficient of Variation 15.1 % (11.5-14.5); RDW Standard Deviation 43.8 fL (36.4-46.3); Red Blood Count 3.21 M/uL (4.20-5.40)
[2025-01-19 06:33] LABS: Albumin Globulin Ratio 0.9 (0.9-2); Albumin Level 2.7 gm/dl (3.4-5.0); BUN Creatinine Ratio 12.8 (10-20); Bilirubin,Total 0.5 mg/dl (0.2-1.0); Calcium 7.9 mg/dl (8.6-10.3); Creatinine Clr Calc Pharmacy 70.2 ml/min; Phosphorus 2.8 mg/dl (2.5-4.9); Potassium 3.5 mmol/L (3.5-5.1); Total Protein 5.7 gm/dl (6.0-8.3)
[2025-01-19 06:45] LABS: Basophils # (auto) 0.02 K/uL (0.00-0.20); Basophils % (auto) 0.7 %; Dohle Bodies 1+; Eosinophils # (auto) 0.01 K/uL (0.00-0.50); Eosinophils % (auto) 0.3 %; Immature Granulocytes # (auto) 0.28 K/uL (0.01-0.20); Immature Granulocytes % (auto) 9.7 %; Lymphocytes # (auto) 0.44 K/uL (1.20-3.40); Lymphocytes % (auto) 15.2 %; Monocytes # (auto) 0.32 K/uL (0.11-0.59); Neutrophils # (auto) 1.83 K/uL (1.40-6.50); Neutrophils % (auto) 63.1 %; Polychromasia 1+; Toxic Granulation 1+
--- NOTE | 2025-01-19 08:16 | Hospitalist Progress Note ---
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 Neutropenic fever Acute Hypoxic Respiratory Failure Pneumonia + Human Metapneumovirus Patient presenting by referral of outpatient oncologist office for evaluation of neutropenic fever. Fever of 102 AM prior to admission, + cough In the ED, patient was hypoxic on room air at 88%, requiring 2 L of oxygen via nasal cannula. Afebrile and hemodynamically stable. Pancytopenic + human metapneumovirus. CXR is suggestive of a right midlung pneumonia. Procalcitonin elevated Patient was given IV cefepime, IV Vanco, IVF in the ED Continue Vanco and cefepime, doxycycline CT chest noting infectious or inflammatory infiltrates, adenopathy, 7mm solid nodule in RLL and 2.5cm middle mediastinal mass. The radiologist also noted the following: "...I would advise repeat CT follow-up in the near future with contrast enhancement to better evaluate the adenopathy, the characteristics of the right lower lobe nodule, and the characteristics of the mediastinal mass. Following that, would recommend a follow-up chest CT in 3-6 months to reevaluate the right lung nodule and to reassess the adenopathy and the mediastinal mass..." Pulmonary toilet with nebs, Mucinex, incentive spirometer, flutter valve Sputum Cx NGTD Blood cultures NGTD Oxygen supplementation as needed Continue to monitor Improved 01/19 Pt still on suppl. O2 2L, will consult w/ ID Pancytopenia Anemia Thrombocytopenia In setting of chemotherapy iron studies noting iron deficiency anemia, s/p IV Venofer on 01/14 Monitor H/H, transfuse as needed for hgb <7 Monitor platelets, transfuse for platelets <10K Hematology consult while inpatient, appreciate recs Pt follows with Dr Mancia from [facility] Oncology Continue to monitor 01/16- H/h trending down, blood consent signed. 01/17- stable 01/18- transfused 1U pRBCs, repeat hgb 9.1. Continue to monitor h/h Hyponatremia Sodium 128 to 127 Received IV fluids Urine electrolytes, urine osm Nephrology consulted, appreciate recs Improving, current Na 132 Hypomagnesemia Hypokalemia Hypophosphatemia Replete and monitor Hyperglycemia Prediabetes hgbA1c of 6.3 PCP followup Elevated Liver Enzymes elevated t bili and direct bili levels Improving Acute Kidney Injury Cr elevated at 1.2 on admission IV Fluids Currently resolved Hypertension Home amlodipine and HCTZ currently on hold Hyperlipidemia Continue statin Continue other home meds as ordered Diet: Regular, FR 1800ml DVT prophylaxis: SCDs in setting of thrombocytopenia Dispo: PT/OT for further recs once medically stable Admission and Anticipated Discharge Date Admission Date: January 12, 2025 Subjective Pt seen in follow up of neutropenic fever, PNA, / uti Pt follows w/ oncology (Dr. Mancia) Admitted for hypoxia, still requiring supple. O2 Currently sitting up in bed in NAD, reports overall feeling better but still w/ cough reports she was gagging from coughing no chest pain, abd. pain Review of Systems Review of Systems: All systems reviewed & are unremarkable except as noted in Subjective Physical Exam Physical Exam: General: Alert, oriented. NC in nares, on suppl. O2 Psych: Appropriate mood and affect HEENT: NC/AT Chest: noted port in place CV: RRR Resp: decreased Breath sounds, no increased effort of breathing Abdomen:Soft, nontender Extremities: No edema in lower extremities bilaterally. Results & Data Results & Data Vital Signs (Past 12 Hours) Vital Signs Temp Pulse Pulse Resp BP Pulse Ox O2 Del Method 01/19/25 07:59 66 18 91 Nasal Cannula 01/19/25 06:42 62 01/19/25 02:54 36.4 C L 64 18 145/64 H 92 Nasal Cannula 01/18/25 23:55 64 18 92 Nasal Cannula 01/18/25 22:43 Nasal Cannula 01/18/25 22:39 36.8 C 63 16 146/69 H 92 Nasal Cannula 01/18/25 22:20 68 O2 Flow Rate 01/19/25 07:59 3 01/19/25 06:42 01/19/25 02:54 2 04/22/25 23:55 2 01/18/25 22:43 2 01/18/25 22:39 2 01/18/25 22:20 Laboratory Results 01/19/25 01/18/25 01/18/25 Range/Units 04:55 13:15 06:58 WBC 2.90 L (4.8-10.8) K/ul RBC 3.21 L (4.20-5.40) M/uL Hgb 8.7 L 9.1 L (12.0-16.0) g/dl Hct 25.7 L 27.1 L (37.0-47.0) % MCV 80.1 (80.0-100.0) fL MCH 27.1 (25.0-34.0) pg MCHC 33.9 (32.0-36.0) g/dL RDW Std Deviation 43.8 (36.4-46.3) fL RDW Coeff of All 15.1 H (11.5-14.5) % Plt Count 130 (130-400) K/uL MPV 12.2 (9.4-12.4) fL Immature Gran % (Auto) 9.7 % Neut % (Auto) 63.1 % Lymph % (Auto) 15.2 % [place] % (Auto) 11.0 % Eos % (Auto) 0.3 % Baso % (Auto) 0.7 % Neut # (Auto) 1.83 (1.40-6.50) K/uL Lymph # (Auto) 0.44 L (1.20-3.40) K/uL [place] # (Auto) 0.32 (0.11-0.59) K/uL Eos # (Auto) 0.01 (0.00-0.50) K/uL Baso # (Auto) 0.02 (0.00-0.20) K/uL Immature Gran # (Auto) 0.28 H (0.01-0.20) K/uL Absolute Nucleated RBC 0.02 (0.00-0.12) K/uL Nucleated RBC % (auto) 0.7 % Toxic Granulation 1+ Dohle Bodies 1+ Polychromasia 1+ Sodium 132 L (136-145) mmol/L Potassium 3.5 (3.5-5.1) mmol/L Chloride 98 (98-107) mmol/L Carbon Dioxide 28 (21-32) mmol/L Anion Gap 6 (3-11) BUN 10 (6-23) mg/dl Creatinine 0.78 (0.6-1.2) mg/dl Est Cr Clr Drug Dosing 70.2 ml/min eGFR 80.15 BUN/Creatinine Ratio 12.8 (10-20) Glucose 114 H (70-99(Fasting)) mg/dl Calcium 7.9 L (8.6-10.3) mg/dl Phosphorus 2.8 (2.5-4.9) mg/dl Magnesium 2.0 (1.7-2.4) mg/dl Total Bilirubin 0.5 (0.2-1.0) mg/dl AST 28 (13-39) U/L ALT 26 (7-52) U/L Alkaline Phosphatase 75 (34-104) U/L Total Protein 5.7 L (6.0-8.3) gm/dl Albumin 2.7 L (3.4-5.0) gm/dl Globulin 3.0 (2.5-4.0) gm/dl Albumin/Globulin Ratio 0.9 (0.9-2) Blood Type O Negative Antibody Screen NEGATIVE Crossmatch See Detail Medications Administered Current Inpatient Medications Acetaminophen (Acetaminophen 325 Mg Tab) 650 mg PO Q4H PRN PRN Reason: Mild Pain (Scale 1, 2, 3) Stop: 02/11/25 14:31 Last Admin: 01/18/25 08:19 Dose: 650 mg Albuterol (Albut/Ipratrop 3mg/0.5mg Neb 3 Ml Vial) 3 ml NEB Q6R [facility]; Protocol Stop: 02/11/25 18:59 Last Admin: 01/19/25 07:58 Dose: 3 ml Benzonatate (Benzonatate 100 Mg Capsule) 100 mg PO TID [facility] Stop: 02/12/25 20:59 Last Admin: 01/18/25 20:48 Dose: 100 mg Docusate Sodium (Docusate Sodium 100 Mg Cap) 100 mg PO BID [facility] Stop: 02/13/25 20:59 Last Admin: 01/18/25 20:48 Dose: 100 mg Doxycycline Hyclate (Doxycycline Hyclate 100 Mg Cap) 100 mg PO BID [facility] Stop: 01/24/25 08:59 Ferrous Sulfate (Ferrous Sulfate 325 Mg Tab) 325 mg PO QAM [facility] Stop: 02/14/25 08:59 Last Admin: 01/18/25 08:18 Dose: 325 mg Guaifenesin (Guaifenesin 600 Mg Tabcr) 1,200 mg PO Q12 [facility] Stop: 02/11/25 20:59 Last Admin: 01/18/25 20:50 Dose: 1,200 mg Hydrocodone Bit/Homatropine Methylb (Hydrocodone/Homatropine Syrup 5mg/1.5mg 5ml Udp) 5 ml PO TID PRN PRN Reason: Cough Stop: 01/27/25 15:44 Last Admin: 01/18/25 13:59 Dose: 5 ml Hydromorphone HCl (Hydromorphone Inj 0.5 Mg/0.5 Ml Syr) 0.5 mg IV Q6H PRN PRN Reason: Severe Pain (Scale 7, 8, 9,10) Stop: 01/31/25 17:26 Cefepime HCl (Maxipime 2000mg) 2,000 mg in 20 mls @ 5 mls/min IV Q8H [facility]; Protocol Stop: 01/20/25 17:59 Last Admin: 01/19/25 02:47 Dose: 5 mls/min Vancomycin HCl (Vancomycin Hcl) 1,000 mg in 270 mls @ 200 mls/hr IV Q12H [facility] Stop: 01/21/25 20:59 Last Infusion: 01/18/25 22:11 Dose: Infused Lidocaine (Lidocaine 5% 1 Patch) 1 patch TD QAM [facility] Stop: 02/12/25 09:14 Last Admin: 01/18/25 08:18 Dose: 1 patch Magnesium Oxide (Magnesium Oxide 400 Mg Tab) 400 mg PO BID [facility] Stop: 02/13/25 08:59 Last Admin: 01/18/25 20:51 Dose: 400 mg Melatonin (Melatonin 3 Mg Tab) 3 mg PO HS PRN PRN Reason: Sleep Stop: 02/16/25 01:59 Last Admin: 01/17/25 21:40 Dose: 3 mg Miscellaneous (Remove Lidoderm Patch) 1 each N/A DAILY@2100 [facility] Stop: 02/12/25 20:59 Last Admin: 01/18/25 20:52 Dose: 1 each Miscellaneous Information (Vancomycin Consult Active) 1 each N/A UD PRN PRN Reason: Consult Stop: 02/11/25 12:02 Ondansetron HCl (Ondansetron Inj 2 Mg/Ml 2 Ml Vial) 4 mg IV Q6H PRN PRN Reason: Nausea And Vomiting Stop: 02/11/25 12:55 Last Admin: 01/17/25 22:01 Dose: 4 mg Oxycodone HCl (Oxycodone Hcl Ir 5 Mg Tab (Immediate Release)) 5 mg PO Q6H PRN PRN Reason: Moderate Pain (Scale 4, 5, 6) Stop: 01/27/25 09:10 Last Admin: 01/18/25 18:33 Dose: 5 mg
[2025-01-19] MEDS: DOXYCYCLINE HYCLATE 100 MG CAP PO SCH (09:27)
[2025-01-19] MEDS: ALBUT/IPRATROP 3MG/0.5MG NEB 3 ML VIAL NEB SCH (15:19)
--- NOTE | 2025-01-20 05:54 | Hospitalist Progress Note ---
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 Neutropenic fever Acute Hypoxic Respiratory Failure Pneumonia + Human Metapneumovirus Patient presenting by referral of outpatient oncologist office for evaluation of neutropenic fever. Fever of 102 AM prior to admission, + cough In the ED, patient was hypoxic on room air at 88%, requiring 2 L of oxygen via nasal cannula. Afebrile and hemodynamically stable. Pancytopenic + human metapneumovirus. CXR is suggestive of a right midlung pneumonia. Procalcitonin elevated Patient was given IV cefepime, IV Vanco, IVF in the ED Continue Vanco and cefepime, doxycycline CT chest noting infectious or inflammatory infiltrates, adenopathy, 7mm solid nodule in RLL and 2.5cm middle mediastinal mass. The radiologist also noted the following: "...I would advise repeat CT follow-up in the near future with contrast enhancement to better evaluate the adenopathy, the characteristics of the right lower lobe nodule, and the characteristics of the mediastinal mass. Following that, would recommend a follow-up chest CT in 3-6 months to reevaluate the right lung nodule and to reassess the adenopathy and the mediastinal mass..." Pulmonary toilet with nebs, Mucinex, incentive spirometer, flutter valve Sputum Cx NGTD Blood cultures NGTD Oxygen supplementation as needed Continue to monitor Improved 01/19 Pt still on suppl. O2 2L, will consult w/ ID 01/20 Discussed w/ ID - will stop vanco, doxy now. Cont. w/ cefepime, may transition to levaquin when ready to DC. Finish 7 day course Pancytopenia Anemia Thrombocytopenia In setting of chemotherapy iron studies noting iron deficiency anemia, s/p IV Venofer on 01/14 Monitor H/H, transfuse as needed for hgb <7 Monitor platelets, transfuse for platelets <10K Hematology consult while inpatient, appreciate recs Pt follows with Dr Mancia from [facility] Oncology Continue to monitor 01/16- H/h trending down, blood consent signed. 01/17- stable 01/18- transfused 1U pRBCs, repeat hgb 9.1. Continue to monitor h/h 01/20 Hgb 8.3, WBC 3, Plt 168 Hyponatremia Sodium 128 to 127 Received IV fluids Urine electrolytes, urine osm Nephrology consulted, appreciate recs Improving, current Na 133 Hypomagnesemia Hypokalemia Hypophosphatemia Replete and monitor Constipation - pt did not have a BM since coming to hospital - KUB c/w constipation - emesis today - suppository, enema, miralax added to already scheduled colace Hyperglycemia Prediabetes hgbA1c of 6.3 PCP followup Elevated Liver Enzymes elevated t bili and direct bili levels Improving Acute Kidney Injury Cr elevated at 1.2 on admission IV Fluids Currently resolved Hypertension Home amlodipine and HCTZ currently on hold Hyperlipidemia Continue statin Continue other home meds as ordered Diet: Regular, FR 1800ml DVT prophylaxis: SCDs Dispo: PT/OT for further recs once medically stable Admission and Anticipated Discharge Date Admission Date: January 12, 2025 Subjective Pt seen in follow up of neutropenic fever, PNA, / uti Pt follows w/ oncology (Dr. Mancia) Admitted for hypoxia, still requiring supple. O2 Currently lying in bed in NAD, however constipated - reports did not have a BM since coming to the hospital. vomitted today. no chest pain, no abd. pain KUB obtained and reviewed - c/w constipation. Discussed w/ RN bowel regimen. ID also consulted and discussed with - alfonso gonzalez now Review of Systems Review of Systems: All systems reviewed & are unremarkable except as noted in Subjective Physical Exam Physical Exam: General: Alert, oriented. NC in nares, on suppl. O2 Psych: Appropriate mood and affect HEENT: NC/AT Chest: noted port in place CV: RRR Resp: decreased Breath sounds, no increased effort of breathing Abdomen:Soft, nontender Extremities: No edema in lower extremities bilaterally. Results & Data Results & Data Vital Signs (Past 12 Hours) Vital Signs Temp Pulse Pulse Pulse Resp BP Pulse Ox 01/20/25 03:13 36.8 C 92 H 16 133/61 95 01/20/25 02:03 01/19/25 22:54 36.7 C 73 20 149/69 H 93 01/19/25 22:23 67 18 94 01/19/25 21:52 67 01/19/25 19:30 01/19/25 19:10 36.7 C 68 20 138/72 95 O2 Del Method O2 Flow Rate 01/20/25 03:13 Nasal Cannula 2 01/20/25 02:03 Nasal Cannula 2 01/19/25 22:54 Nasal Cannula 2 01/19/25 22:23 Nasal Cannula 3 01/19/25 21:52 01/19/25 19:30 Nasal Cannula 2 01/19/25 19:10 Nasal Cannula 2 Laboratory Results 01/20/25 Range/Units 05:35 WBC 3.06 L (4.8-10.8) K/ul RBC 3.08 L (4.20-5.40) M/uL Hgb 8.3 L (12.0-16.0) g/dl Hct 25.0 L (37.0-47.0) % MCV 81.2 (80.0-100.0) fL MCH 26.9 (25.0-34.0) pg MCHC 33.2 (32.0-36.0) g/dL RDW Std Deviation 44.9 (36.4-46.3) fL RDW Coeff of All 15.3 H (11.5-14.5) % Plt Count 168 (130-400) K/uL MPV 12.4 (9.4-12.4) fL Immature Gran % (Auto) 8.8 % Neut % (Auto) 58.2 % Lymph % (Auto) 19.3 % [place] % (Auto) 12.7 % Eos % (Auto) 0.7 % Baso % (Auto) 0.3 % Neut # (Auto) 1.78 (1.40-6.50) K/uL Lymph # (Auto) 0.59 L (1.20-3.40) K/uL [place] # (Auto) 0.39 (0.11-0.59) K/uL Eos # (Auto) 0.02 (0.00-0.50) K/uL Baso # (Auto) 0.01 (0.00-0.20) K/uL Immature Gran # (Auto) 0.27 H (0.01-0.20) K/uL Toxic Granulation 1+ Dohle Bodies 1+ Polychromasia 1+ Sodium 133 L (136-145) mmol/L Potassium 3.8 (3.5-5.1) mmol/L Chloride 98 (98-107) mmol/L Carbon Dioxide 31 (21-32) mmol/L Anion Gap 4 (3-11) BUN 9 (6-23) mg/dl Creatinine 0.77 (0.6-1.2) mg/dl Est Cr Clr Drug Dosing 71.9 ml/min eGFR 81.40 BUN/Creatinine Ratio 11.7 (10-20) Glucose 101 H (70-99(Fasting)) mg/dl Calcium 7.9 L (8.6-10.3) mg/dl Phosphorus 3.0 (2.5-4.9) mg/dl Magnesium 1.7 (1.7-2.4) mg/dl Medications Administered Current Inpatient Medications Acetaminophen (Acetaminophen 325 Mg Tab) 650 mg PO Q4H PRN PRN Reason: Mild Pain (Scale 1, 2, 3) Stop: 02/11/25 14:31 Last Admin: 01/18/25 08:19 Dose: 650 mg Albuterol (Albut/Ipratrop 3mg/0.5mg Neb 3 Ml Vial) 3 ml NEB Q8R [facility]; Protocol Stop: 02/18/25 14:59 Last Admin: 01/19/25 22:22 Dose: 3 ml Benzonatate (Benzonatate 100 Mg Capsule) 100 mg PO TID [facility] Stop: 02/12/25 20:59 Last Admin: 01/19/25 20:30 Dose: 100 mg Docusate Sodium (Docusate Sodium 100 Mg Cap) 100 mg PO BID [facility] Stop: 02/13/25 20:59 Last Admin: 01/19/25 20:30 Dose: 100 mg Doxycycline Hyclate (Doxycycline Hyclate 100 Mg Cap) 100 mg PO BID [facility] Stop: 01/24/25 08:59 Last Admin: 01/19/25 20:30 Dose: 100 mg Ferrous Sulfate (Ferrous Sulfate 325 Mg Tab) 325 mg PO QAM [facility] Stop: 02/14/25 08:59 Last Admin: 01/19/25 08:27 Dose: 325 mg Guaifenesin (Guaifenesin 600 Mg Tabcr) 1,200 mg PO Q12 [facility] Stop: 02/11/25 20:59 Last Admin: 01/19/25 20:30 Dose: 1,200 mg Hydrocodone Bit/Homatropine Methylb (Hydrocodone/Homatropine Syrup 5mg/1.5mg 5ml Udp) 5 ml PO TID PRN PRN Reason: Cough Stop: 01/27/25 15:44 Last Admin: 01/19/25 08:36 Dose: 5 ml Hydromorphone HCl (Hydromorphone Inj 0.5 Mg/0.5 Ml Syr) 0.5 mg IV Q6H PRN PRN Reason: Severe Pain (Scale 7, 8, 9,10) Stop: 01/31/25 17:26 Cefepime HCl (Maxipime 2000mg) 2,000 mg in 20 mls @ 5 mls/min IV Q8H [facility]; Protocol Stop: 01/20/25 17:59 Last Admin: 01/20/25 01:36 Dose: 5 mls/min Vancomycin HCl (Vancomycin Hcl) 1,000 mg in 270 mls @ 200 mls/hr IV Q12H [facility] Stop: 01/21/25 20:59 Last Infusion: 01/19/25 22:05 Dose: Infused Lidocaine (Lidocaine 5% 1 Patch) 1 patch TD QAM [facility] Stop: 02/12/25 09:14 Last Admin: 01/19/25 08:28 Dose: 1 patch Magnesium Oxide (Magnesium Oxide 400 Mg Tab) 400 mg PO BID [facility] Stop: 02/13/25 08:59 Last Admin: 01/19/25 20:30 Dose: 400 mg Melatonin (Melatonin 3 Mg Tab) 3 mg PO HS PRN PRN Reason: Sleep Stop: 02/16/25 01:59 Last Admin: 01/17/25 21:40 Dose: 3 mg Miscellaneous (Remove Lidoderm Patch) 1 each N/A DAILY@2100 [facility] Stop: 02/12/25 20:59 Last Admin: 01/19/25 20:30 Dose: 1 each Miscellaneous Information (Vancomycin Consult Active) 1 each N/A UD PRN PRN Reason: Consult Stop: 02/11/25 12:02 Ondansetron HCl (Ondansetron Inj 2 Mg/Ml 2 Ml Vial) 4 mg IV Q6H PRN PRN Reason: Nausea And Vomiting Stop: 02/11/25 12:55 Last Admin: 01/19/25 22:10 Dose: 4 mg Oxycodone HCl (Oxycodone Hcl Ir 5 Mg Tab (Immediate Release)) 5 mg PO Q6H PRN PRN Reason: Moderate Pain (Scale 4, 5, 6) Stop: 01/27/25 09:10 Last Admin: 01/19/25 22:10 Dose: 5 mg
[2025-01-20 06:28] LABS: Hemoglobin 8.3 g/dl (12.0-16.0); Mean Corpuscular Hemoglobin 26.9 pg (25.0-34.0); Mean Corpuscular Hgb Conc 33.2 g/dL (32.0-36.0); Mean Corpuscular Volume 81.2 fL (80.0-100.0); Mean Platelet Volume 12.4 fL (9.4-12.4); Platelet Count 168 K/uL (130-400); RDW Coefficient of Variation 15.3 % (11.5-14.5); RDW Standard Deviation 44.9 fL (36.4-46.3); Red Blood Count 3.08 M/uL (4.20-5.40); White Blood Count 3.06 K/ul (4.8-10.8)
[2025-01-20 06:34] LABS: BUN Creatinine Ratio 11.7 (10-20); Calcium 7.9 mg/dl (8.6-10.3); Creatinine Clr Calc Pharmacy 71.9 ml/min; Magnesium 1.7 mg/dl (1.7-2.4); Potassium 3.8 mmol/L (3.5-5.1)
[2025-01-20 07:19] LABS: Basophils # (auto) 0.01 K/uL (0.00-0.20); Basophils % (auto) 0.3 %; Dohle Bodies 1+; Eosinophils # (auto) 0.02 K/uL (0.00-0.50); Eosinophils % (auto) 0.7 %; Immature Granulocytes # (auto) 0.27 K/uL (0.01-0.20); Immature Granulocytes % (auto) 8.8 %; Lymphocytes # (auto) 0.59 K/uL (1.20-3.40); Lymphocytes % (auto) 19.3 %; Monocytes # (auto) 0.39 K/uL (0.11-0.59); Monocytes % (auto) 12.7 %; Neutrophils # (auto) 1.78 K/uL (1.40-6.50); Neutrophils % (auto) 58.2 %; Polychromasia 1+; Toxic Granulation 1+
[2025-01-20] MEDS: POTASSIUM CHLORIDE CRTAB 20 MEQ TABCR PO STA (08:44)
[2025-01-20] MEDS: FUROSEMIDE INJ 20 MG/2 ML VIAL IV ONE (08:44)
[2025-01-20] MEDS: MAGNESIUM SULFATE / D5W 1 GM/100 ML BAG IV ONE (08:44)
--- NOTE | 2025-01-20 13:12 | XRay Report ---
KUB HISTORY: constipation COMPARISON STUDY: None FINDINGS: There is a large amount of retained stool. No bowel obstruction seen. No gross free air. IMPRESSION: Large amount of retained stool. ACT 112: Negative or not required by law. The above report was generated using voice recognition software. It may contain grammatical, syntax o r spelling errors. Electronically signed by: Juan Russell M.D. 01/20/2025 1:10 PM
[2025-01-20] MEDS: bisacodyL 10 MG SUPP PR STA (13:22)
--- NOTE | 2025-01-20 13:35 | Infectious Disease Consult ---
Date of Service January 20, 2025 Telehealth Information I performed this visit using a real-time telehealth connection between my location and the patients location ([facility]). After connecting through interactive tele-video, patient was identified by name and date of and/or wristband check.Patient (or authorized healthcare call center support representative) was informed that this was a telemedicine visit and it was being conducted confidentially over secure lines. My office door was closed and no on e else was present in the room with me.Patient (or authorized healthcare call center support representative) provided consent to proceed with the visit, expressed an understanding of privacy and security of the telemedicine visit, and gave permission to have a hospital call center support representative in the room in order to assist with the visit and to conduct portions of the visit, as needed. I informed the patient (or authorized healthcare call center support representative) that I reviewed their record and presented the opportunity for them to ask any questions regarding the visit today. The patient agreed to participate. Assessment & Plan (1) Neutropenic fever: (2) Bacterial pneumonia: (3) Human metapneumovirus (hMPV) pneumonia: (4) Acute hypoxic respiratory failure: (5) Pancytopenia due to antineoplastic chemotherapy: (6) Large cell neuroendocrine carcinoma: Plan - At this point, given the whole clinical picture, the febrile neutropenia could be secondary to acute bacterial pneumonia (superimposing viral pneumonia). Since the MRSA screen was negative, I would recommend stopping all antibiotics except for cefepime. - Aim to treat for a total duration of 7 days. If there is any plan to discharge, can step-down to oral Levaquin 750 mg daily to complete a course of treatment. - Thank you for consulting ID. I will continue to follow. History of Present Illness History of Present Illness Ms. Mcclure is a 74-year-old woman with medical history of neuroendocrine can cer of the left upper lung status post VATS and wedge resection with lymphadenectomy who was admitted to [facility] on 01/12/2025 after being referred from outpatient in Oncology office for neutropenic fever. She was recently started on chemotherapy (etoposide plus carboplatin), last dose on 01/05. She mentioned that she was feeling very weak with some nausea and vomiting after the chemotherapy; however, over the last few days she started having cough with fever up to 102 which was documented at the outpatient Oncology clinic and hence the current admission. On presentation, she was afebrile and has been afebrile since admission. Also, She has been requiring oxygen between 2-3 L per minute via nasal cannula since admission. Initial workup showed pancytopenia with neutrophil count less than 0.5, elevated creatinine suggesting WICHO, RVP panel was positive for human metapneumovirus, urine with no pyuria or bacteriuria, and negative MRSA screen. Imaging including chest x-ray and CT chest was suggestive of right upper lobe and right lower lobe pneumonia. ID team was consulted for further recommendations and to help guide antibiotic treatment for febrile neutropenia and presumed pneumonia. Allergies Allergy/AdvReac Type Severity Reaction Status Date / Time lisinopril Allergy Severe ANAPHYLAXIS Verified 01/12/25 12:36 metoprolol Allergy Intermediate Anaphylaxis Verified 01/12/25 12:36 Home Medications Medication Instructions Recorded Confirmed Type amlodipine 10 mg tablet 10 mg PO HS 07/09/19 01/12/25 History atorvastatin 20 mg tablet 20 mg PO HS 07/09/19 01/12/25 History cholecalciferol (vitamin D3) 25 1,000 unit PO HS 07/09/19 01/12/25 History mcg (1,000 unit) capsule (Vitamin D3) aspirin 81 mg tablet 81 mg PO DAILY 01/12/25 01/12/25 History hydrochlorothiazide 25 mg tablet 25 mg PO QAM 01/12/25 01/12/25 History loratadine 10 mg tablet 10 mg PO DAILY 01/12/25 01/12/25 History lorazepam 0.5 mg tablet 0.5 mg PO HS PRN Anxiety/Sleep 01/12/25 01/12/25 History ondansetron HCl 8 mg tablet 8 mg PO Q8H PRN Nausea 01/12/25 01/12/25 History prochlorperazine maleate 10 mg 10 mg PO Q6H PRN Nausea 01/12/25 01/12/25 History tablet Patient History Medical History (Updated 01/20/25 @ 13:47 by Sona Marie MD) 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 She was first diagnosed in 1984 where she had a partial mastectomy and radiation therapy. She had a mammogram in 2014 showing a possible recurrence. She then had bilateral mastectomies with reconstruction. 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 She was treated with the 1st cycles of TCH and 1 year of Herceptin which she completed on 07/23/2016. Nausea and vomiting after administration of anesthetic agent Osteoarthritis GERD (gastroesophageal reflux disease) Peripheral neuropathy r/t chemotherapy Migraine Hyperlipidemia Chronic obstructive pulmonary disease possible -- current testing Surgical History (Updated 01/12/25 @ 14:13 by MONO Jimenez) History of lobectomy of lung SAURAV for neuroendocrine tumor History of cataract surgery History of breast augmentation 2014 - implants removed d/t infection. Patient reports minimal implants. Hx of lumpectomy Left History of herniorrhaphy umbilical History of colonoscopy Family History Other Cancer Heart disease Hypertension Social History Smoking Status: Former smoker Tobacco Type: Cigarettes Cigarettes Per Day: 20 x 54 years; Second Hand Exposure: Yes; Do You Dip or Chew Tobacco: No; Hx Alcohol Use: No Hx Substance Use: No Preferred Language: Chilean Communication Ability: Effective Tracer Clerk Required: No Beliefs That Will Affect Care: None Current Living Situation: Family Current Living Situation Comment: lives with son Feels Safe at Home: Yes Assistive Devices: None Review of Systems I couldn't see the patient as she was in radiology Physical Exam I couldn't see the patient as she was in radiology Results & Data Vital Signs (Past 12 Hours) Vital Signs Temp Pulse Pulse Resp BP Pulse Ox O2 Del Method 01/20/25 12:13 36.9 C 73 20 133/72 96 Nasal Cannula 01/20/25 08:01 37.0 C 58 L 20 134/66 93 Nasal Cannula 01/20/25 07:56 Nasal Cannula 01/20/25 07:31 70 16 90 Nasal Cannula 01/20/25 07:20 66 01/20/25 03:13 36.8 C 92 H 16 133/61 95 Nasal Cannula 01/20/25 02:03 Nasal Cannula O2 Flow Rate 01/20/25 12:13 1 01/20/25 08:01 3 01/20/25 07:56 2 01/20/25 07:31 3 01/20/25 07:20 01/20/25 03:13 2 01/20/25 02:03 2 Laboratory Results Microbiology: 01/12: 2 sets of blood culture negative to date 01/12: Urine culture growing Corynebacterium jeikeium 01/14: Respiratory culture with growth normal nallely Diagnostic Findings Imaging: CT chest on 01/12: Patchy airspace opacities in the right upper lobe and right lower lobe consistent with infectious or inflammatory infiltrates. Right hilar and mediastinal adenopathy likely to be reactive but recommend follow-up. 7 mm solid nodule in the right lower lobe having different characteristics than the inflammatory infiltrates. Recommend follow-up. 2.5 cm middle mediastinal mass just anterior to the esophagus with low attenuation most likely an enteric cyst or benign esophageal wall lesion.
[2025-01-20] MEDS: POLYETHYLENE (MIRALAX) 17 GM PACK PO SCH (16:45)
[2025-01-20] MEDS: POLYETHYLENE (MIRALAX) 17 GM PACK PO ONE (17:10)
[2025-01-20] MEDS: GLYCERIN ADULT 12 SUPP/BOX SUPP PR ONE (17:47)
[2025-01-21 06:15] LABS: Hematocrit (blood only) 25.7 % (37.0-47.0); Hemoglobin 8.6 g/dl (12.0-16.0); Mean Corpuscular Hemoglobin 27.3 pg (25.0-34.0); Mean Corpuscular Hgb Conc 33.5 g/dL (32.0-36.0); Mean Corpuscular Volume 81.6 fL (80.0-100.0); Mean Platelet Volume 11.3 fL (9.4-12.4); Platelet Count 222 K/uL (130-400); RDW Coefficient of Variation 15.8 % (11.5-14.5); RDW Standard Deviation 45.9 fL (36.4-46.3); Red Blood Count 3.15 M/uL (4.20-5.40); White Blood Count 3.33 K/ul (4.8-10.8)
[2025-01-21 06:35] LABS: BUN Creatinine Ratio 11.4 (10-20); Calcium 8.2 mg/dl (8.6-10.3); Creatinine Clr Calc Pharmacy 69.3 ml/min; Magnesium 1.8 mg/dl (1.7-2.4); Phosphorus 3.2 mg/dl (2.5-4.9)
[2025-01-21 07:10] LABS: Basophils # (auto) 0.01 K/uL (0.00-0.20); Basophils % (auto) 0.3 %; Dohle Bodies 1+; Eosinophils # (auto) 0.02 K/uL (0.00-0.50); Eosinophils % (auto) 0.6 %; Immature Granulocytes # (auto) 0.22 K/uL (0.01-0.20); Immature Granulocytes % (auto) 6.6 %; Monocytes # (auto) 0.39 K/uL (0.11-0.59); Monocytes % (auto) 11.7 %; Neutrophils # (auto) 2.09 K/uL (1.40-6.50); Neutrophils % (auto) 62.8 %; Toxic Granulation 1+
--- NOTE | 2025-01-21 07:15 | Hospitalist Progress Note ---
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 Neutropenic fever Acute Hypoxic Respiratory Failure Pneumonia + Human Metapneumovirus Patient presenting by referral of outpatient oncologist office for evaluation of neutropenic fever. Fever of 102 AM prior to admission, + cough In the ED, patient was hypoxic on room air at 88%, requiring 2 L of oxygen via nasal cannula. Afebrile and hemodynamically stable. Pancytopenic + human metapneumovirus. CXR is suggestive of a right midlung pneumonia. Procalcitonin elevated Patient was given IV cefepime, IV Vanco, IVF in the ED Continue Vanco and cefepime, doxycycline CT chest noting infectious or inflammatory infiltrates, adenopathy, 7mm solid nodule in RLL and 2.5cm middle mediastinal mass. The radiologist also noted the following: "...I would advise repeat CT follow-up in the near future with contrast enhancement to better evaluate the adenopathy, the characteristics of the right lower lobe nodule, and the characteristics of the mediastinal mass. Following that, would recommend a follow-up chest CT in 3-6 months to reevaluate the right lung nodule and to reassess the adenopathy and the mediastinal mass..." Pulmonary toilet with nebs, Mucinex, incentive spirometer, flutter valve Sputum Cx NGTD Blood cultures NGTD Oxygen supplementation as needed Continue to monitor Improved 01/19 Pt still on suppl. O2 2L, will consult w/ ID 01/20 Discussed w/ ID - will stop vanco, doxy now. Cont. w/ cefepime, may transition to levaquin when ready to DC. Finish 7 day course Pancytopenia Anemia Thrombocytopenia In setting of chemotherapy iron studies noting iron deficiency anemia, s/p IV Venofer on 01/14 Monitor H/H, transfuse as needed for hgb <7 Monitor platelets, transfuse for platelets <10K Hematology consult while inpatient, appreciate recs Pt follows with Dr Mancia from [facility] Oncology Continue to monitor 01/16- H/h trending down, blood consent signed. 01/17- stable 01/18- transfused 1U pRBCs, repeat hgb 9.1. Continue to monitor h/h 01/20 Hgb 8.3, WBC 3, Plt 168 01/21 Hgb 8.6, WBC 3.3, Plt 222 Hyponatremia Sodium 128 to 127 Received IV fluids Urine electrolytes, urine osm Nephrology consulted, appreciate recs Improving, current Na 135 Hypomagnesemia Hypokalemia Hypophosphatemia Replete and monitor Constipation - pt did not have a BM since coming to hospital as of 01/20 - KUB c/w constipation - emesis on 01/20 - suppository, enema, miralax added to already scheduled colace - pt had small BM, will continue bowel regimen Hyperglycemia Prediabetes hgbA1c of 6.3 PCP followup Elevated Liver Enzymes elevated t bili and direct bili levels Improving Acute Kidney Injury Cr elevated at 1.2 on admission received IV Fluids Currently resolved Hypertension Home amlodipine and HCTZ currently on hold Hyperlipidemia Continue statin Continue other home meds as ordered Diet: Regular DVT prophylaxis: SCDs -> heparin subq Dispo: PT/OT for further recs once medically stable Admission and Anticipated Discharge Date Admission Date: January 12, 2025 Subjective Pt seen in follow up of neutropenic fever, PNA, / uti Pt follows w/ oncology (Dr. Mancia) Admitted for hypoxia, still requiring supple. O2 + severe constipation, now on bowel regimen , had some small BM so far vomitted yesterday, pt reports feeling much better today, was able to ambulate in hallway no chest pain, no abd. pain ID also consulted and discussed with yesterday - stopped alfonso tellez Review of Systems Review of Systems: All systems reviewed & are unremarkable except as noted in Subjective Physical Exam Physical Exam: General: Alert, oriented. NC in nares, on suppl. O2 Psych: Appropriate mood and affect HEENT: NC/AT Chest: noted port in place CV: RRR Resp: decreased Breath sounds, no increased effort of breathing Abdomen:Soft, nontender Extremities: No edema in lower extremities bilaterally. Results & Data Results & Data Vital Signs (Past 12 Hours) Vital Signs Temp Pulse Pulse Resp BP Pulse Ox O2 Del Method 01/21/25 03:14 36.7 C 66 16 141/61 H 92 Nasal Cannula 01/20/25 23:11 37.0 C 62 16 150/68 H 95 Nasal Cannula 01/20/25 22:50 61 13 92 Nasal Cannula 01/20/25 21:47 84 01/20/25 20:30 Nasal Cannula 01/20/25 19:10 36.6 C 67 19 163/71 H 95 Nasal Cannula O2 Flow Rate 01/21/25 03:14 01/20/25 23:11 1 01/20/25 22:50 1 01/20/25 21:47 01/20/25 20:30 1 01/20/25 19:10 1 Laboratory Results 01/21/25 Range/Units 05:37 WBC 3.33 L (4.8-10.8) K/ul RBC 3.15 L (4.20-5.40) M/uL Hgb 8.6 L (12.0-16.0) g/dl Hct 25.7 L (37.0-47.0) % MCV 81.6 (80.0-100.0) fL MCH 27.3 (25.0-34.0) pg MCHC 33.5 (32.0-36.0) g/dL RDW Std Deviation 45.9 (36.4-46.3) fL RDW Coeff of All 15.8 H (11.5-14.5) % Plt Count 222 (130-400) K/uL MPV 11.3 (9.4-12.4) fL Immature Gran % (Auto) 6.6 % Neut % (Auto) 62.8 % Lymph % (Auto) 18.0 % Webb % (Auto) 11.7 % Eos % (Auto) 0.6 % Baso % (Auto) 0.3 % Neut # (Auto) 2.09 (1.40-6.50) K/uL Lymph # (Auto) 0.60 L (1.20-3.40) K/uL Webb # (Auto) 0.39 (0.11-0.59) K/uL Eos # (Auto) 0.02 (0.00-0.50) K/uL Baso # (Auto) 0.01 (0.00-0.20) K/uL Immature Gran # (Auto) 0.22 H (0.01-0.20) K/uL Toxic Granulation 1+ Dohle Bodies 1+ Sodium 135 L (136-145) mmol/L Potassium 4.0 (3.5-5.1) mmol/L Chloride 97 L (98-107) mmol/L Carbon Dioxide 32 (21-32) mmol/L Anion Gap 6 (3-11) BUN 9 (6-23) mg/dl Creatinine 0.79 (0.6-1.2) mg/dl Est Cr Clr Drug Dosing 69.3 ml/min eGFR 78.93 BUN/Creatinine Ratio 11.4 (10-20) Glucose 97 (70-99(Fasting)) mg/dl Calcium 8.2 L (8.6-10.3) mg/dl Phosphorus 3.2 (2.5-4.9) mg/dl Magnesium 1.8 (1.7-2.4) mg/dl Medications Administered Current Inpatient Medications Acetaminophen (Acetaminophen 325 Mg Tab) 650 mg PO Q4H PRN PRN Reason: Mild Pain (Scale 1, 2, 3) Stop: 02/11/25 14:31 Last Admin: 01/18/25 08:19 Dose: 650 mg Albuterol (Albut/Ipratrop 3mg/0.5mg Neb 3 Ml Vial) 3 ml NEB Q8R [facility]; Protocol Stop: 02/18/25 14:59 Last Admin: 01/21/25 07:37 Dose: 3 ml Benzonatate (Benzonatate 100 Mg Capsule) 100 mg PO TID [facility] Stop: 02/12/25 20:59 Last Admin: 01/21/25 08:20 Dose: 100 mg Docusate Sodium (Docusate Sodium 100 Mg Cap) 100 mg PO BID [facility] Stop: 02/13/25 20:59 Last Admin: 01/21/25 08:43 Dose: 100 mg Ferrous Sulfate (Ferrous Sulfate 325 Mg Tab) 325 mg PO QAM [facility] Stop: 02/14/25 08:59 Last Admin: 01/21/25 08:20 Dose: 325 mg Guaifenesin (Guaifenesin 600 Mg Tabcr) 1,200 mg PO Q12 [facility] Stop: 02/11/25 20:59 Last Admin: 01/21/25 08:20 Dose: 1,200 mg Hydrocodone Bit/Homatropine Methylb (Hydrocodone/Homatropine Syrup 5mg/1.5mg 5ml Udp) 5 ml PO TID PRN PRN Reason: Cough Stop: 01/27/25 15:44 Last Admin: 01/19/25 08:36 Dose: 5 ml Hydromorphone HCl (Hydromorphone Inj 0.5 Mg/0.5 Ml Syr) 0.5 mg IV Q6H PRN PRN Reason: Severe Pain (Scale 7, 8, 9,10) Stop: 01/31/25 17:26 Levofloxacin/Dextrose (Levaquin/D5w) 750 mg in 150 mls @ 100 mls/hr IV Q24H [facility]; Protocol Stop: 01/26/25 12:29 Lidocaine (Lidocaine 5% 1 Patch) 1 patch TD QAM [facility] Stop: 02/12/25 09:14 Last Admin: 01/21/25 08:20 Dose: 1 patch Magnesium Oxide (Magnesium Oxide 400 Mg Tab) 400 mg PO BID [facility] Stop: 02/13/25 08:59 Last Admin: 01/21/25 08:45 Dose: 400 mg Melatonin (Melatonin 3 Mg Tab) 3 mg PO HS PRN PRN Reason: Sleep Stop: 02/16/25 01:59 Last Admin: 01/17/25 21:40 Dose: 3 mg Miscellaneous (Remove Lidoderm Patch) 1 each N/A DAILY@2100 [facility] Stop: 02/12/25 20:59 Last Admin: 01/20/25 20:19 Dose: 1 each Ondansetron HCl (Ondansetron Inj 2 Mg/Ml 2 Ml Vial) 4 mg IV Q6H PRN PRN Reason: Nausea And Vomiting Stop: 02/11/25 12:55 Last Admin: 01/20/25 10:30 Dose: 4 mg Oxycodone HCl (Oxycodone Hcl Ir 5 Mg Tab (Immediate Release)) 5 mg PO Q6H PRN PRN Reason: Moderate Pain (Scale 4, 5, 6) Stop: 01/27/25 09:10 Last Admin: 01/20/25 09:01 Dose: 5 mg Polyethylene Glycol (Polyethylene (Miralax) 17 Gm Pack) 17 gm PO DAILY [facility] Stop: 02/19/25 15:29 Last Admin: 01/21/25 08:43 Dose: 17 gm
[2025-01-21] MEDS: levoFLOXacin/D5W 750 MG/150 ML BAG IV SCH (14:05)
[2025-01-21] MEDS: GLYCERIN ADULT 12 SUPP/BOX SUPP PR ONE (14:06)
[2025-01-21] MEDS: POLYETHYLENE (MIRALAX) 17 GM PACK PO ONE (14:09)
[2025-01-21] MEDS: HEPARIN SOD 5,000 UNIT/0.5 ML VIAL SQ SCH (20:16)
[2025-01-21] MEDS: ATORVASTATIN 20 MG TAB PO SCH (20:21)
[2025-01-22 06:08] LABS: Hematocrit (blood only) 26.4 % (37.0-47.0); Hemoglobin 8.7 g/dl (12.0-16.0); Mean Corpuscular Hemoglobin 27.3 pg (25.0-34.0); Mean Corpuscular Volume 82.8 fL (80.0-100.0); Mean Platelet Volume 10.9 fL (9.4-12.4); Platelet Count 340 K/uL (130-400); RDW Coefficient of Variation 15.9 % (11.5-14.5); RDW Standard Deviation 46.7 fL (36.4-46.3); Red Blood Count 3.19 M/uL (4.20-5.40)
[2025-01-22 06:26] LABS: BUN Creatinine Ratio 17.7 (10-20); Calcium 8.2 mg/dl (8.6-10.3); Magnesium 1.7 mg/dl (1.7-2.4); Phosphorus 3.2 mg/dl (2.5-4.9); Potassium 4.1 mmol/L (3.5-5.1)
[2025-01-22 06:31] LABS: Basophils # (auto) 0.02 K/uL (0.00-0.20); Basophils % (auto) 0.5 %; Eosinophils # (auto) 0.02 K/uL (0.00-0.50); Eosinophils % (auto) 0.5 %; Immature Granulocytes # (auto) 0.26 K/uL (0.01-0.20); Immature Granulocytes % (auto) 6.7 %; Lymphocytes # (auto) 0.72 K/uL (1.20-3.40); Lymphocytes % (auto) 18.5 %; Monocytes # (auto) 0.44 K/uL (0.11-0.59); Monocytes % (auto) 11.3 %; Neutrophils # (auto) 2.44 K/uL (1.40-6.50); Neutrophils % (auto) 62.5 %; Polychromasia 1+
--- NOTE | 2025-01-22 08:03 | Hospitalist Progress Note ---
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 Neutropenic fever Acute Hypoxic Respiratory Failure Pneumonia + Human Metapneumovirus Patient presenting by referral of outpatient oncologist office for evaluation of neutropenic fever. Fever of 102 AM prior to admission, + cough In the ED, patient was hypoxic on room air at 88%, requiring 2 L of oxygen via nasal cannula. Afebrile and hemodynamically stable. Pancytopenic + human metapneumovirus. CXR is suggestive of a right midlung pneumonia. Procalcitonin elevated Patient was given IV cefepime, IV Vanco, IVF in the ED Continue Vanco and cefepime, doxycycline CT chest noting infectious or inflammatory infiltrates, adenopathy, 7mm solid nodule in RLL and 2.5cm middle mediastinal mass. The radiologist also noted the following: "...I would advise repeat CT follow-up in the near future with contrast enhancement to better evaluate the adenopathy, the characteristics of the right lower lobe nodule, and the characteristics of the mediastinal mass. Following that, would recommend a follow-up chest CT in 3-6 months to reevaluate the right lung nodule and to reassess the adenopathy and the mediastinal mass..." Pulmonary toilet with nebs, Mucinex, incentive spirometer, flutter valve Sputum Cx NGTD Blood cultures NGTD Oxygen supplementation as needed Continue to monitor Improved 01/19 Pt still on suppl. O2 2L, will consult w/ ID 01/20 Discussed w/ ID - will stop vanco, doxy now. Cont. w/ cefepime, may transition to levaquin when ready to DC. Finish 7 day course Pancytopenia Anemia Thrombocytopenia In setting of chemotherapy iron studies noting iron deficiency anemia, s/p IV Venofer on 01/14 Monitor H/H, transfuse as needed for hgb <7 Monitor platelets, transfuse for platelets <10K Hematology consult while inpatient, appreciate recs Pt follows with Dr Mancia from [facility] Oncology Continue to monitor 01/16- H/h trending down, blood consent signed. 01/17- stable 01/18- transfused 1U pRBCs, repeat hgb 9.1. Continue to monitor h/h 01/20 Hgb 8.3, WBC 3, Plt 168 01/21 Hgb 8.6, WBC 3.3, Plt 222 01/22 Hgb 8.7, WBC 3.9, Plt 340 Hyponatremia Sodium 128 to 127 Received IV fluids Urine electrolytes, urine osm Nephrology consulted, appreciate recs Improving, current Na 135 Hypomagnesemia Hypokalemia Hypophosphatemia Replete and monitor Constipation - pt did not have a BM since coming to hospital as of 01/20 - KUB c/w constipation - emesis on 01/20 - suppository, enema, miralax added to already scheduled colace - pt had BM, will continue bowel regimen PAT - pt having episodes now, asymptomatic - replace electrolytes - will obtain Echo, cont. to monitor Hyperglycemia Prediabetes hgbA1c of 6.3 PCP followup Elevated Liver Enzymes elevated t bili and direct bili levels Improving Acute Kidney Injury Cr elevated at 1.2 on admission received IV Fluids Currently resolved Hypertension Home amlodipine and HCTZ currently on hold Hyperlipidemia Continue statin Continue other home meds as ordered Diet: Regular DVT prophylaxis: SCDs -> heparin subq Dispo: likely home w/ son tmrw Admission and Anticipated Discharge Date Admission Date: January 12, 2025 Subjective Pt seen in follow up of neutropenic fever, PNA, / uti Pt follows w/ oncology (Dr. Mancia) Admitted for hypoxia + severe constipation, now resolved on bowel regimen no chest pain, no abd. pain Pt's son updated at the bedside yesterday Pt had episodes of PAT, asymptomatic Review of Systems Review of Systems: All systems reviewed & are unremarkable except as noted in Subjective Physical Exam Physical Exam: General: Alert, oriented. NC in nares, on suppl. O2 Psych: Appropriate mood and affect HEENT: NC/AT Chest: noted port in place CV: RRR Resp: decreased Breath sounds, no increased effort of breathing Abdomen:Soft, nontender Extremities: No edema in lower extremities bilaterally. Results & Data Results & Data Vital Signs (Past 12 Hours) Vital Signs Temp Pulse Pulse Resp BP Pulse Ox O2 Del Method 01/22/25 07:30 63 16 94 Nasal Cannula 01/22/25 07:18 61 01/22/25 05:45 90 01/22/25 03:05 36.8 C 72 20 133/63 90 Nasal Cannula 01/21/25 22:52 36.9 C 83 20 123/63 95 Nasal Cannula 01/21/25 22:09 77 15 92 Nasal Cannula 01/21/25 20:34 Nasal Cannula O2 Flow Rate 01/22/25 07:30 1 01/22/25 07:18 01/22/25 05:45 01/22/25 03:05 01/21/25 22:52 01/21/25 22:09 1 01/21/25 20:34 1 Laboratory Results 01/22/25 Range/Units 05:34 WBC 3.90 L (4.8-10.8) K/ul RBC 3.19 L (4.20-5.40) M/uL Hgb 8.7 L (12.0-16.0) g/dl Hct 26.4 L (37.0-47.0) % MCV 82.8 (80.0-100.0) fL MCH 27.3 (25.0-34.0) pg MCHC 33.0 (32.0-36.0) g/dL RDW Std Deviation 46.7 H (36.4-46.3) fL RDW Coeff of All 15.9 H (11.5-14.5) % Plt Count 340 D (130-400) K/uL MPV 10.9 (9.4-12.4) fL Immature Gran % (Auto) 6.7 % Neut % (Auto) 62.5 % Lymph % (Auto) 18.5 % Woods % (Auto) 11.3 % Eos % (Auto) 0.5 % Baso % (Auto) 0.5 % Neut # (Auto) 2.44 (1.40-6.50) K/uL Lymph # (Auto) 0.72 L (1.20-3.40) K/uL Woods # (Auto) 0.44 (0.11-0.59) K/uL Eos # (Auto) 0.02 (0.00-0.50) K/uL Baso # (Auto) 0.02 (0.00-0.20) K/uL Immature Gran # (Auto) 0.26 H (0.01-0.20) K/uL Polychromasia 1+ Sodium 132 L (136-145) mmol/L Potassium 4.1 (3.5-5.1) mmol/L Chloride 95 L (98-107) mmol/L Carbon Dioxide 32 (21-32) mmol/L Anion Gap 5 (3-11) BUN 14 (6-23) mg/dl Creatinine 0.79 (0.6-1.2) mg/dl Est Cr Clr Drug Dosing 64.0 ml/min eGFR 78.93 BUN/Creatinine Ratio 17.7 (10-20) Glucose 113 H (70-99(Fasting)) mg/dl Calcium 8.2 L (8.6-10.3) mg/dl Phosphorus 3.2 (2.5-4.9) mg/dl Magnesium 1.7 (1.7-2.4) mg/dl Medications Administered Current Inpatient Medications Acetaminophen (Acetaminophen 325 Mg Tab) 650 mg PO Q4H PRN PRN Reason: Mild Pain (Scale 1, 2, 3) Stop: 02/11/25 14:31 Last Admin: 01/18/25 08:19 Dose: 650 mg Albuterol (Albut/Ipratrop 3mg/0.5mg Neb 3 Ml Vial) 3 ml NEB Q8R [facility]; Protocol Stop: 02/18/25 14:59 Last Admin: 01/22/25 07:30 Dose: 3 ml Aspirin (Aspirin 81 Mg Ectab) 81 mg PO DAILY [facility] Stop: 02/21/25 08:59 Atorvastatin Calcium (Atorvastatin 20 Mg Tab) 20 mg PO HS [facility] Stop: 02/20/25 20:59 Last Admin: 01/21/25 20:21 Dose: 20 mg Benzonatate (Benzonatate 100 Mg Capsule) 100 mg PO TID [facility] Stop: 02/12/25 20:59 Last Admin: 01/21/25 20:17 Dose: 100 mg Docusate Sodium (Docusate Sodium 100 Mg Cap) 100 mg PO BID [facility] Stop: 02/13/25 20:59 Last Admin: 01/21/25 20:15 Dose: 100 mg Ferrous Sulfate (Ferrous Sulfate 325 Mg Tab) 325 mg PO QAM [facility] Stop: 02/14/25 08:59 Last Admin: 01/21/25 08:20 Dose: 325 mg Guaifenesin (Guaifenesin 600 Mg Tabcr) 1,200 mg PO Q12 [facility] Stop: 02/11/25 20:59 Last Admin: 01/21/25 20:17 Dose: 1,200 mg Heparin Sodium (Porcine) (Heparin Sod 5,000 Unit/0.5 Ml Vial) 5,000 units SQ Q12 [facility] Stop: 02/20/25 20:59 Last Admin: 01/21/25 20:16 Dose: Not Given Hydrocodone Bit/Homatropine Methylb (Hydrocodone/Homatropine Syrup 5mg/1.5mg 5ml Udp) 5 ml PO TID PRN PRN Reason: Cough Stop: 01/27/25 15:44 Last Admin: 01/19/25 08:36 Dose: 5 ml Magnesium Sulfate/Dextrose (Magnesium Sulfate / D5w) 1 gm in 100 mls @ 50 mls/hr IV ONE ONE Stop: 01/22/25 09:58 Lidocaine (Lidocaine 5% 1 Patch) [facility] [place] Stop: 02/12/25 09:14 Last Admin: 01/21/25 09:00 Dose: Not Given Magnesium Oxide (Magnesium Oxide 400 Mg Tab) 400 mg PO BID [facility] Stop: 02/13/25 08:59 Last Admin: 01/21/25 20:21 Dose: 400 mg Melatonin (Melatonin 3 Mg Tab) 3 mg PO HS PRN PRN Reason: Sleep Stop: 02/16/25 01:59 Last Admin: 01/17/25 21:40 Dose: 3 mg Miscellaneous (Remove Lidoderm Patch) 1 each N/A DAILY@2100 [facility] Stop: 02/12/25 20:59 Last Admin: 01/21/25 20:17 Dose: Not Given Oxycodone HCl (Oxycodone Hcl Ir 5 Mg Tab (Immediate Release)) 5 mg PO Q6H PRN PRN Reason: Moderate Pain (Scale 4, 5, 6) Stop: 01/27/25 09:10 Last Admin: 01/21/25 17:32 Dose: 5 mg Polyethylene Glycol (Polyethylene (Miralax) 17 Gm Pack) 17 gm PO DAILY [facility] Stop: 02/19/25 15:29 Last Admin: 01/21/25 08:43 Dose: 17 gm
[2025-01-22] MEDS: MAGNESIUM SULFATE / D5W 1 GM/100 ML BAG IV ONE (09:16)
[2025-01-22] MEDS: ASPIRIN 81 MG ECTAB PO SCH (09:19)
--- NOTE | 2025-01-22 13:43 | Nephrology Progress Note ---
Date of Service January 22, 2025 Assessment & Plan (1) Hyponatremia: Plan: stable mild - moderate hyponatremia likely multifactorial - related to carboplatin therapy on 01/03, to saline obligate at admission plus/minus hctz and from poor po intake prior to admission adn from pneumonia. Sodium was 132 today. - Will start urea 15 g daily. - Monitor sodium daily (2) Hypomagnesemia: Plan: magnesium was 1.4 on presentation >recheck mag daily and replace as needed (3) Pancytopenia due to antineoplastic chemotherapy: Plan: monitor and transfuse as needed to maintain hemoglobin above 7. Admission and Anticipated Discharge Date Admission Date: January 12, 2025 Subjective seen for hyponatremia. She feels better today. Still requiring oxygen nasal cannula. No leg swelling. Review of Systems 2 Review of Systems: All other systems were reviewed and negative except as noted in HPI Physical Exam 2 Physical Exam: General exam: Appears comfortable, no acute distress HEENT: Pupils are equal and reactive to light Neck: No JVD, neck is supple trachea is midline Respiratory system: Clear breath sounds bilaterally. Gastrointestinal: Abdomen is soft, non distended, non tender, bowel sounds are present CVS: Regular rate and rhythm. No murmurs, rubs or gallops Musculoskeletal: No joint or muscle tenderness Extremities: Non tender, no edema, peripheral pulses are present Neuro: Oriented, no tremors, no focal neurological deficits Skin: No rashes Results & Data Vital Signs (Past 12 Hours) Vital Signs Temp Pulse Pulse Resp BP Pulse Ox O2 Del Method 01/22/25 13:10 36.6 C 80 18 156/75 H 92 Nasal Cannula 01/22/25 08:45 Nasal Cannula 01/22/25 08:24 36.7 C 62 18 147/73 H 90 Nasal Cannula 01/22/25 07:30 63 16 94 Nasal Cannula 01/22/25 07:18 61 01/22/25 05:45 90 01/22/25 03:05 36.8 C 72 20 133/63 90 Nasal Cannula O2 Flow Rate 01/22/25 13:10 01/22/25 08:45 1 01/22/25 08:24 1.5 01/22/25 07:30 1 01/22/25 07:18 01/22/25 05:45 01/22/25 03:05 Laboratory Results 01/22/25 05:34 01/22/25 05:34 WBC 3.90 L RBC 3.19 L MCV 82.8 MCH 27.3 MCHC 33.0 RDW Std Deviation 46.7 H RDW Coeff of All 15.9 H Plt Count 340 D MPV 10.9 Phosphorus 3.2
[2025-01-22] MEDS: UREA (UREA-NA) 15 GM PACK PO SCH (14:33)
[2025-01-23 05:58] LABS: Hematocrit (blood only) 27.5 % (37.0-47.0); Mean Corpuscular Hgb Conc 32.7 g/dL (32.0-36.0); Mean Corpuscular Volume 82.6 fL (80.0-100.0); Mean Platelet Volume 10.7 fL (9.4-12.4); Platelet Count 430 K/uL (130-400); RDW Coefficient of Variation 16.1 % (11.5-14.5); RDW Standard Deviation 47.4 fL (36.4-46.3); Red Blood Count 3.33 M/uL (4.20-5.40); White Blood Count 5.06 K/ul (4.8-10.8)
[2025-01-23 06:14] LABS: BUN Creatinine Ratio 18.3 (10-20); Calcium 8.1 mg/dl (8.6-10.3); Creatinine Clr Calc Pharmacy 71.2 ml/min; Magnesium 1.8 mg/dl (1.7-2.4); Potassium 4.3 mmol/L (3.5-5.1)
[2025-01-23] MEDS: UREA (UREA-NA) 15 GM PACK PO SCH (09:06)
[2025-01-23] MEDS: amLODIPine BESYLATE 5 MG TAB PO SCH (09:06)
[2025-01-23] MEDS: MAGNESIUM SULFATE / D5W 1 GM/100 ML BAG IV ONE (09:38)
[2025-01-23] MEDS: ONDANSETRON INJ 2 MG/ML 2 ML VIAL IV PRN (09:39)
[2025-01-23 11:44] VITALS: BP 123/69; RESP 18; TEMP 99.3; O2SAT 95
--- NOTE | 2025-01-23 13:01 | Discharge Summary ---
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 Patient received her first doses of chemo on 01/03, 01/04, and 01/05. Patient received pegfilgrastim on 01/06. She reports that since receiving chemo she has been feeling generally weak, nauseous, poor appetite, and vomiting. Denies abdominal pain or diarrhea. No hematemesis or coffee-ground emesis. Patient reports a chronic cough due to her smoking history however cough has been worsening over the past couple of days. Patient started to develop a low-grade fever over the past couple of days as well and this morning fever was 102. Cough has been productive and patient reports she feels short of breath with minimal exertion. No chest pain or palpitations. She denies lightheadedness, dizziness, diaphoresis, syncopal stevan nts. No urinary symptoms. Patient was seen at her oncologist office today and was referred to the ED for further evaluation. In the ED, patient was hypoxic on room air at 88%, currently requiring 2 L of oxygen via nasal cannula. She is afebrile and hemodynamically stable. Labs showed WBC 0.14K, Hgb 10.2, platelets 45K, Na+ 128, K+ 3.3, creatinine 1.2, Mg +1.4. RVP positive for human metapneumovirus. CXR is suggestive of a right midlung pneumonia. Patient was given IV cefepime, IV Vanco, IVF. Admission Exam Per Admitting Provider Constitutional: well developed, well nourished and + ill appearing; no acute distress Eyes: PERRL, conjunctivae normal, anicteric sclerae ENMT: external ear and nose normal, oropharynx normal Respiratory: normal respiratory effort; no respiratory distress Auscultation: + diminished lung sounds Dyspneic with minimal exertion Cardiovascular: Rate/Rhythm: regular rate and regular rhythm Vessels: normal peripheral pulses Extremities: no edema Gastrointestinal (Abdomen): normal bowel sounds, soft, nontender, no hepatosplenomegaly Musculoskeletal: no cyanosis or clubbing, extremities motor strength 5/5 Skin: no rashes, warm and dry Neurologic: PERRL, EOMI, accommodation nl, no face palsy, no dysarthria Psychiatric: A+Ox3, euthymic affect Principal Diagnosis Neutropenic fever Acute hypoxic respiratory failure. + human metapneumovirus Pneumonia Discharge Exam General: Alert, oriented. NC in nares, on suppl. O2 Psych: Appropriate mood and affect HEENT: NC/AT Chest: noted port in place CV: RRR Resp: CTAB, no increased effort of breathing Abdomen:Soft, nontender Extremities: No edema in lower extremities bilaterally. Discharge Data Allergies Allergy/AdvReac Type Severity Reaction Status Date / Time lisinopril Allergy Severe ANAPHYLAXIS Verified 01/12/25 12:36 metoprolol Allergy Intermediate Anaphylaxis Verified 01/12/25 12:36 Consultations 01/12/25 12:14 ED Decision to Admit Stat 01/13/25 08:56 Consult Nephrology Routine 01/13/25 08:58 Consult Hematology Routine 01/19/25 07:58 Consult Infectious Diseases Routine Ordered Studies 01/12/25 13:38 CT chest without contrast [CT chest diagnostic wo con] Routine FINDINGS: There are patchy airspace opacities in the right upper lobe and the right lower lobe. In addition, there is partial atelectasis and scarring in the medial segment of the right middle lobe and there is scarring in the anterior aspect of the left upper lobe. There is a sharply marginated 7 mm solid nodule identified in the right lower lobe on axial image 38 of series 3. There is no pleural effusion. There is no pneumothorax. There are prominent precarinal, subcarinal, and right hilar lymph nodes that are likely to be reactive. There is a 2.6 cm fluid attenuating mass lying just anterior to the esophagus in the middle mediastinum on axial image 119 of series 4 The upper airway is unremarkable. There is no aortic aneurysm. The upper abdominal images demonstrate a small hiatal hernia IMPRESSION: Patchy airspace opacities in the right upper lobe and right lower lobe consistent with infectious or inflammatory infiltrates. Right hilar and mediastinal adenopathy likely to be reactive but recommend follow-up. 7 mm solid nodule in the right lower lobe having different characteristics than the inflammatory infiltrates. Recommend follow-up. 2.5 cm middle mediastinal mass just anterior to the esophagus with low attenuation most likely an enteric cyst or benign esophageal wall lesion. I would advise repeat CT follow-up in the near future with contrast enhancement to better evaluate the adenopathy, the characteristics of the right lower lobe nodule, and the characteristics of the mediastinal mass. Following that, would recommend a follow-up chest CT in 3-6 months to reevaluate the right lung nodule and to reassess the adenopathy and the mediastinal mass. 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 Neutropenic fever Acute Hypoxic Respiratory Failure Pneumonia + Human Metapneumovirus Patient presenting by referral of outpatient oncologist office for evaluation of neutropenic fever. Fever of 102 AM prior to admission, + cough In the ED, patient was hypoxic on room air at 88%, requiring 2 L of oxygen via nasal cannula. Afebrile and hemodynamically stable. Pancytopenic + human metapneumovirus. CXR is suggestive of a right midlung pneumonia. Procalcitonin elevated Patient was given IV cefepime, IV Vanco, IVF in the ED Continue Vanco and cefepime, doxycycline CT chest noting infectious or inflammatory infiltrates, adenopathy, 7mm solid nodule in RLL and 2.5cm middle mediastinal mass. The radiologist also noted the following: "...I would advise repeat CT follow-up in the near future with contrast enhancement to better evaluate the adenopathy, the characteristics of the right lower lobe nodule, and the characteristics of the mediastinal mass. Following that, would recommend a follow-up chest CT in 3-6 months to reevaluate the right lung nodule and to reassess the adenopathy and the mediastinal mass..." Pulmonary toilet with nebs, Mucinex, incentive spirometer, flutter valve Sputum Cx normal nallely Blood cultures Negative Oxygen supplementation as needed Continue to monitor Improved 01/19 Pt still on suppl. O2 2L, will consult w/ ID 01/20 Discussed w/ ID - will stop vanco, alfonso now. Cont. w/ cefepime, may transition to levaquin when ready to DC. Finish 7 day course 2 step obtained - pt needs 1L of suppl. O2 w/ ambulation Pancytopenia Anemia Thrombocytopenia In setting of chemotherapy iron studies noting iron deficiency anemia, s/p IV Venofer on 01/14 Monitor H/H, transfuse as needed for hgb <7 Monitor platelets, transfuse for platelets <10K Hematology consult while inpatient, appreciate recs Pt follows with Dr Mancia from [facility] On[facility] Continue to monitor 01/16- H/h trending down, blood consent signed. 01/17- stable 01/18- transfused 1U pRBCs, repeat hgb 9.1. Continue to monitor h/h 01/20 Hgb 8.3, WBC 3, Plt 168 01/21 Hgb 8.6, WBC 3.3, Plt 222 01/22 Hgb 8.7, WBC 3.9, Plt 340 01/23 Hgb 9.0, WBC 5, Plt 430 Hyponatremia Sodium 128 to 127 Received IV fluids Urine electrolytes, urine osm Nephrology consulted, appreciate recs Improving, Na 135 Pt now also started on urea by nephrology Will need BMP in 1-2 weeks Hypomagnesemia Hypokalemia Hypophosphatemia Replete and monitor Constipation - pt did not have a BM since coming to hospital as of 01/20 - KUB c/w constipation - emesis on 01/20 - suppository, enema, miralax added to already scheduled colace - pt had BM, will continue bowel regimen PAT - pt having episodes now, asymptomatic - replace electrolytes - obtained Echo and discussed w/ cardiology PA - no need for cardiology follow up at this time Hyperglycemia Prediabetes hgbA1c of 6.3 PCP followup Elevated Liver Enzymes elevated t bili and direct bili levels Improving Acute Kidney Injury Cr elevated at 1.2 on admission received IV Fluids Currently resolved Hypertension Home amlodipine and HCTZ currently on hold amlodipine reduced to 5 mg daily monitor BP Hyperlipidemia Continue statin Continue other home meds as ordered Total Time Total Time Spent Total Time Spent (In Minutes): 40 Discharge Plan Discharge Items Patient Disposition: Home - Self-Care Reason For Visit: NEUTROPENIC FEVER, PNEUMONIA Discharge Diagnosis: Neutropenic fever Acute hypoxic respiratory failure. + human metapneumovirus Pneumonia Activity: Per Instructions section Non-emergency contact: Primary Care Provider, Specialist and Oncologist Call non-emergency contact if: you have any medication questions and your symptoms worsen Follow-up/Referrals: Marge Leal MD [Primary Care Provider] - (Date & Time 01/28/2025 10:20 AM Provider: Rafael Ochoa CRNP [facility] ) Diet: Regular Addtl Attending Provider Instructions: Follow up with your primary care doctor and oncologist. It is also recommended you follow up with over the road driver. Stop taking hydrochlorothiazide. Take amlodipine at lower dose 5 mg daily. Monitor your blood pressure if you can, and record your numbers. Discuss your numbers with your health care providers so that your medications can be further adjusted. Your sodium was low and you were started on urea. Have your blood work checked (kidney function, sodium level) in 1-2 weeks. Use oxygen (1L) when ambulating. Pending Studies at Discharge: No Stand-Alone Forms: My [facility] [employer], Smoking Cessation Medications and DC Order Prescriptions: New magnesium oxide 400 mg (241.3 mg magnesium) Tablet 400 mg PO BID Qty: 20 0RF benzonatate 100 mg Capsule 100 mg PO TID Qty: 14 0RF guaifenesin [Mucinex] 600 mg Tablet Extended Release 12hr 600 mg PO Q12 Qty: 10 0RF amlodipine [Norvasc] 5 mg Tablet 5 mg PO QAM Qty: 30 0RF Ure-Na 15 gram Powder In Packet 15 g PO DAILY Qty: 8 0RF Continued atorvastatin 20 mg tablet 20 mg PO HS cholecalciferol (vitamin D3) [Vitamin D3] 1,000 unit Capsule 1,000 unit PO HS Rx Instructions: Unable to verify OTC meds at this date/time. ondansetron HCl 8 mg tablet 8 mg PO Q8H PRN (Reason: Nausea) prochlorperazine maleate 10 mg tablet 10 mg PO Q6H PRN (Reason: Nausea) lorazepam 0.5 mg tablet 0.5 mg PO HS PRN (Reason: Anxiety/Sleep) loratadine 10 mg tablet 10 mg PO DAILY Rx Instructions: x 5 days after pegfilgastrim injection aspirin 81 mg Tablet 81 mg PO DAILY Discontinued amlodipine 10 mg tablet 10 mg PO HS hydrochlorothiazide 25 mg tablet 25 mg PO QAM Rx Instructions: Last filled 09/27/25 x90 day supply Discharge Orders: Discharge Order (Routine); Ordered 01/23/25 Ordered By: Giovanni Banks/Other Patient Handouts: Prediabetes, 5 Steps for Eating Healthier Admission Data Admit Date/Time: 01/12/25 13:00 Attending Provider: Giovanni Maguire Admit Provider: Kameron Terrell Primary Care Provider: Marge Leal Other Providers: Etelvina Driscoll; Delmis Sanchez [facility]; Kameron Terrell; Shauna Tabares; Santiago North; Sona Marie
--- NOTE | 2025-01-23 13:27 | Nephrology Progress Note ---
Date of Service January 23, 2025 Assessment & Plan (1) Hyponatremia: Plan: stable mild - moderate hyponatremia likely multifactorial - related to carboplatin therapy on 01/03, to saline obligate at admission plus/minus hctz and from poor po intake prior to admission adn from pneumonia. Sodium was 134 today. - from renal standpoint patient can be discharged on urea 15 g daily. - she will need a repeat BMP in 1-2 weeks and renal follow-up in 2 weeks (2) Hypomagnesemia: Plan: magnesium was 1.4 on presentation >recheck mag daily and replace as needed (3) Pancytopenia due to antineoplastic chemotherapy: Plan: monitor and transfuse as needed to maintain hemoglobin above 7. Admission and Anticipated Discharge Date Admission Date: January 12, 2025 Subjective Seen for hyponatremia and hypertension. She feels better today. She would like to go home. Still on oxygen nasal cannula 1 L. Review of Systems 2 Review of Systems: All other systems were reviewed and negative except as noted in HPI Physical Exam 2 Physical Exam: General exam: Appears comfortable, no acute distress HEENT: Pupils are equal and reactive to light Neck: No JVD, neck is supple trachea is midline Respiratory system: Clear breath sounds bilaterally. Gastrointestinal: Abdomen is soft, non distended, non tender, bowel sounds are present CVS: Regular rate and rhythm. No murmurs, rubs or gallops Musculoskeletal: No joint or muscle tenderness Extremities: Non tender, no edema, peripheral pulses are present Neuro: Oriented, no tremors, no focal neurological deficits Skin: No rashes Results & Data Vital Signs (Past 12 Hours) Vital Signs Temp Pulse Pulse Pulse Pulse Pulse Resp 01/23/25 11:43 37.4 C 67 18 01/23/25 10:30 100 H 100 H 72 01/23/25 08:45 01/23/25 08:27 37.1 C 88 18 01/23/25 07:51 80 14 01/23/25 07:16 61 01/23/25 03:56 36.8 C 64 17 Resp Resp Resp BP Pulse Ox Pulse Ox Pulse Ox 01/23/25 11:43 123/69 95 01/23/25 10:30 20 19 19 91 85 L 01/23/25 08:45 01/23/25 08:27 133/77 90 01/23/25 07:51 93 01/23/25 07:16 01/23/25 03:56 160/72 H 95 Pulse Ox O2 Del Method O2 Flow Rate O2 Flow Rate 01/23/25 11:43 Nasal Cannula 1 01/23/25 10:30 90 1 01/23/25 08:45 Nasal Cannula 1 01/23/25 08:27 Nasal Cannula 1 01/23/25 07:51 Nasal Cannula 1 01/23/25 07:16 01/23/25 03:56 Nasal Cannula 1 Laboratory Results 01/23/25 05:29 01/23/25 05:29 WBC 5.06 RBC 3.33 L MCV 82.6 MCH 27.0 MCHC 32.7 RDW Std Deviation 47.4 H RDW Coeff of All 16.1 H Plt Count 430 H MPV 10.7
[2025-01-23 15:39] VITALS: PULSE 76
== END 2025-01-23 16:16 | disposition home health service (06) | DRG 193 ==
LOC: ED 10:34 → 4W 13:00 → SUATTDRO 13:00 → 4W 13:50